=== PATIENT | female | born 1960 | race Caucasian/White ===

== ENCOUNTER → 2020-08-10 08:09 | Outpatient (BNVA) | payer OTHER, SELFPAY | PROVIDERS: PCP Physician Assistant; Visit Provider Family Medicine Adult Medicine | DX: M54.16 Radiculopathy, lumbar region (principal); Z79.891 Long term (current) use of opiate analgesic | CPT/HCPCS: 99214 ==

== ENCOUNTER → 2020-09-05 08:01 | Outpatient (BNVA) | payer OTHER, SELFPAY | PROVIDERS: PCP Physician Assistant; Visit Provider Family Medicine Adult Medicine | DX: M54.16 Radiculopathy, lumbar region (principal); Z79.891 Long term (current) use of opiate analgesic | CPT/HCPCS: 99212 ==

== ENCOUNTER → 2020-10-03 10:08 | Outpatient (BNVA) | payer OTHER, SELFPAY | PROVIDERS: PCP Physician Assistant; Visit Provider Family Medicine Adult Medicine | DX: M54.16 Radiculopathy, lumbar region (principal); Z93.3 Colostomy status | CPT/HCPCS: 99212 ==

== ENCOUNTER → 2020-11-09 10:56 | Outpatient (BNVA) | payer OTHER, SELFPAY | PROVIDERS: PCP Physician Assistant; Visit Provider Hospitalist | DX: J43.2 Centrilobular emphysema (principal); J96.11 Chronic respiratory failure with hypoxia; R91.8 Other nonspecific abnormal finding of lung field | CPT/HCPCS: 99212 ==

== ENCOUNTER → 2020-12-12 09:51 | Outpatient (BNVA) | payer OTHER, SELFPAY | PROVIDERS: PCP Physician Assistant; Referring Provider Physician Assistant; Visit Provider Family Medicine Adult Medicine | DX: M54.16 Radiculopathy, lumbar region (principal); Z93.3 Colostomy status | CPT/HCPCS: 99212 ==

== ENCOUNTER → 2021-01-09 12:25 | Outpatient (BNVA) | payer OTHER, SELFPAY | PROVIDERS: PCP Physician Assistant; Visit Provider Family Medicine Adult Medicine | DX: M54.16 Radiculopathy, lumbar region (principal); Z93.3 Colostomy status; Z79.899 Other long term (current) drug therapy | CPT/HCPCS: 99212 ==

== ENCOUNTER → 2021-02-08 14:40 | Outpatient (BNVA) | payer OTHER, SELFPAY | PROVIDERS: PCP Physician Assistant; Visit Provider Family Medicine Adult Medicine | DX: M54.16 Radiculopathy, lumbar region (principal); Z93.3 Colostomy status | CPT/HCPCS: Q3014 ==

== ENCOUNTER 2021-03-20 10:48 | Outpatient (REF) | payer OTHER, SELFPAY ==
[2021-03-20 13:43] LABS: Hematocrit 37.6 % (37-47); Mean Corpuscular HGB Conc 31.9 g/dl (31.0-35.0); Mean Corpuscular Hemoglobin 27.1 pg (27.0-33.0); Mean Corpuscular Volume 84.9 fL (80-98); Mean Platelet Volume 8.8 fL (9.4-12.3); Platelet Count 355 X10*3/uL (160-400); Red Blood Count 4.43 X10*6/uL (4.20-5.50); Red Cell Distribution Width 14.1 % (11.0-16.0); White Blood Count 9.3 X10*3/uL (4.8-10.8)
[2021-03-20 13:49] LABS: Glucose Urine UA NEG (NEG); Leukocyte Esterase Urine NEG (NEG); Nitrite Urine NEG (NEG); PH 6.5 (5.0-8.0); Specific Gravity - Urine <= 1.005 (1.005-1.025); Urine Blood TRACE (NEG); Urine Ketones NEG (NEG); Urine Protein NEG (NEG-TRACE)
[2021-03-20 13:52] LABS: Appearance Urine CLEAR; Color Urine YELLOW
[2021-03-20 13:57] LABS: Alanine Aminotransferase 19 U/L (0-31); Albumin Level 4.4 g/dL (3.5-5.0); Alkaline Phosphatase 157 U/L (39-117); Anion Gap 16 (12-20); Aspartate Amino Transferase 10 U/L (5-31); Bilirubin Total 0.4 mg/dL (0.0-1.0); Blood Urea Nitrogen 7 mg/dL (9-16); Calcium 9.5 mg/dL (8.4-10.2); Carbon Dioxide 27 mmol/L (22-29); Chloride 95 mmol/L (96-108); Cholesterol 164 mg/dL; Estimated Glomerular Filt Rate > 60; Glucose Fasting 97 mg/dL (60-99); HDL Cholesterol 46 mg/dL; LDL Cholesterol Calculated 69 mg/dl; Potassium 3.6 mmol/L (3.3-5.1); Sodium 134 mmol/L (135-145); Triglycerides 249 mg/dL
[2021-03-20 14:05] LABS: RBC Urine 0-2 /HPF (0); Squamous Epithelial Cell Urine 1+ /LPF; WBC Urine 0 /HPF (0-4)
[2021-03-20 14:22] LABS: Creatinine Urine 31.16 mg/dL; Microalbumin Urine < 5.0 mg/L
[2021-03-20 14:30] LABS: Folate > 20.0 ng/mL (> or = 4.0); Vitamin B12 323 pg/mL (200-900)
[2021-03-20 14:39] LABS: TSH reflex Free T4 0.38 uIU/mL (0.32-4.0); Vitamin D 25-OH Total 36.4 ng/mL (>30)
== END 2021-03-20 10:49 | disposition home or self-care (01) ==
LOC: HO.LAB 10:48
PROVIDERS: PCP Physician Assistant; Visit Provider Family Medicine Adult Medicine
DX: M54.16 Radiculopathy, lumbar region (principal); R19.8 Other specified symptoms and signs involving the digestive system and abdomen; I10 Essential (primary) hypertension; E03.9 Hypothyroidism, unspecified; Z93.2 Ileostomy status; Z93.3 Colostomy status
CPT/HCPCS: 36415; 80048; 80053; 80061; 81001; 82043; 82306; 82607; 82746; 84443; 85027; 99212

== ENCOUNTER → 2021-04-17 09:18 | Outpatient (BNVA) | payer OTHER, SELFPAY | PROVIDERS: PCP Physician Assistant; Visit Provider Family Medicine Adult Medicine | DX: M54.16 Radiculopathy, lumbar region (principal); Z93.3 Colostomy status | CPT/HCPCS: 99212 ==

== ENCOUNTER → 2021-04-26 13:45 | Outpatient (BNVA) | payer OTHER, SELFPAY | PROVIDERS: PCP Physician Assistant; Visit Provider Family Medicine Adult Medicine | DX: M54.16 Radiculopathy, lumbar region (principal); Z93.3 Colostomy status | CPT/HCPCS: 99212 ==

== ENCOUNTER 2021-05-15 13:24 | Outpatient (REF) | payer OTHER, SELFPAY ==
--- NOTE | ~2021-05-15 | CT_ITS ---
EXAMINATION: CT CHEST WITHOUT CONTRAST CLINICAL INFORMATION: Pulmonary nodules COMPARISON: Previous chest x-rays most recent October [address] most recent January 2018 TECHNIQUE: Multidetector volumetric CT imaging of the chest was done. Axial MIP volume rendering provided. Sagittal and coronal reformatted images were obtained. This CT examination was performed using dose optimization techniques as appropriate, variously including the following: *Automated exposure control *Adjustment of mA and/or kV according to patient size (this includes techniques or standardized protocols for targeted exams where dose is matched to indication/reason for exam; i.e. 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 There is a 3 x 5 mm calcified superior segment left lower lobe nodule that is stable There is a 2 mm left upper lobe nodule axial image 229 series 5 that is stable. There is a 3 mm peripheral or subpleural lingular nodule axial image 275 that is stable. There is a 4 mm peripheral or subpleural left lower lobe nodule axial image 369 series 4 that is stable. There is a 3 x 5 mm left lower lobe nodule axial image 385 series 4 that is stable. MEDIASTINUM: There is a trace pericardial effusion that is stable. The heart does not appear enlarged. There is very mild coronary artery calcification. The thoracic aorta is normal in caliber. There is shotty mediastinal lymphadenopathy that is stable. There is a small calcification in the right lobe of the thyroid gland. PLEURA: There are scattered areas of mild pleural thickening, largest along the right major fissure, that are stable. There is no pleural effusion. AXILLA: There is shotty bilateral axillary lymphadenopathy. No enlarged axillary lymph nodes or chest wall mass is seen. UPPER ABDOMEN: The stomach is distended and filled with food. This is similar to previous exam. The gallbladder has been removed. OSSEOUS STRUCTURES: There are mild degenerative changes of the spine. CT/CT chest wo con IMPRESSION: Emphysema. Stable pulmonary nodules. The stomach again appears distended.
== END 2021-05-15 13:25 | disposition home or self-care (01) ==
LOC: HO.CT 13:24
PROVIDERS: PCP Physician Assistant; Visit Provider Hospitalist
DX: R91.8 Other nonspecific abnormal finding of lung field (principal)
CPT/HCPCS: 71250

== ENCOUNTER → 2021-06-18 13:05 | Outpatient (BNVA) | payer OTHER, SELFPAY | PROVIDERS: PCP Physician Assistant; Visit Provider Hospitalist | DX: J43.2 Centrilobular emphysema (principal); J96.11 Chronic respiratory failure with hypoxia; R91.8 Other nonspecific abnormal finding of lung field | CPT/HCPCS: 99212 ==

== ENCOUNTER 2021-06-28 11:23 | Outpatient (REF) | payer OTHER, SELFPAY ==
[2021-06-28 14:11] LABS: Glucose Urine UA NEG (NEG); Leukocyte Esterase Urine 3+ (NEG); Nitrite Urine POS (NEG); UACC Culture Trigger YES; Urine Blood 1+ (NEG); Urine Ketones NEG (NEG); Urine Protein NEG (NEG-TRACE)
[2021-06-28 14:13] LABS: Appearance Urine CLOUDY; Color Urine YELLOW; Specific Gravity - Urine <= 1.005 (1.005-1.025)
[2021-06-28 15:14] LABS: Squamous Epithelial Cell Urine 1+ /LPF; WBC Urine TNTC /HPF (0-4)
[2021-06-28 15:15] LABS: Bacteria Urine 3+ /LPF
== END 2021-06-28 11:24 | disposition home or self-care (01) ==
LOC: HO.HMGCLDS 11:23
PROVIDERS: PCP Physician Assistant; Visit Provider Physician Assistant
DX: R30.0 Dysuria (principal); R19.8 Other specified symptoms and signs involving the digestive system and abdomen; Z93.2 Ileostomy status
CPT/HCPCS: 81001; 81003; 87086; 87088; 87186

== ENCOUNTER → 2022-01-02 14:39 | Outpatient (BNVA) | payer OTHER, SELFPAY | PROVIDERS: PCP Physician Assistant; Referring Provider Physician Assistant; Visit Provider Surgery | DX: Z43.2 Encounter for attention to ileostomy (principal) | CPT/HCPCS: 99202 ==

== ENCOUNTER → 2022-01-14 10:01 | Outpatient (BNVA) | payer OTHER, SELFPAY | PROVIDERS: PCP Physician Assistant; Visit Provider Hospitalist | DX: J43.2 Centrilobular emphysema (principal); J96.11 Chronic respiratory failure with hypoxia; R91.8 Other nonspecific abnormal finding of lung field | CPT/HCPCS: 99212 ==

== ENCOUNTER → 2022-02-13 10:33 | Outpatient (REF) | payer OTHER, SELFPAY ==
--- NOTE | 2022-02-13 11:03 | ECG_ITS ---
Test Reason : F33.2 Blood Pressure : / mmHG Vent. Rate : 072 BPM Atrial Rate : 072 BPM P-R Int : 170 ms QRS Dur : 092 ms QT Int : 404 ms P-R-T Axes : 073 047 063 degrees QTc Int : 442 ms Normal sinus rhythm Normal ECG When compared with ECG of 25-SEP-2017 09:04, No significant change was found Referred By: Jigar Patel Electronically Signed By:SAMANTHA SHAW MD
[2022-02-13 11:44] LABS: Hematocrit 34.6 % (37.0-47.0); Hemoglobin 10.1 g/dl (12.0-16.0); Mean Corpuscular HGB Conc 29.2 g/dl (31.0-35.0); Mean Corpuscular Volume 72.1 fL (80.0-98.0); Platelet Count 263 X10*3/uL (160-400); Red Cell Distribution Width 18.1 % (11.0-16.0); White Blood Count 7.5 X10*3/uL (4.8-10.8)
[2022-02-13 11:52] LABS: Estimated Average Glucose 108 mg/dL; Hemoglobin A1c % 5.4 %
[2022-02-13 12:31] LABS: Alanine Aminotransferase 21 U/L (0-31); Albumin Level 4.3 g/dL (3.5-5.0); Alkaline Phosphatase 142 U/L (39-117); Anion Gap 11 (12-20); Aspartate Amino Transferase 24 U/L (5-31); Bilirubin Total 0.2 mg/dL (0.0-1.0); Blood Urea Nitrogen 9 mg/dL (9-16); Calcium 9.3 mg/dL (8.4-10.2); Carbon Dioxide 26 mmol/L (22-29); Chloride 100 mmol/L (96-108); Cholesterol 162 mg/dL; Estimated Glomerular Filt Rate > 60; Glucose Fasting 94 mg/dL (60-99); HDL Cholesterol 48 mg/dL; Iron 19 mcg/dL (30-160); LDL Cholesterol Calculated 87 mg/dl; Percent Iron Saturation 4 % (15-50); Potassium 4.4 mmol/L (3.3-5.1); Sodium 133 mmol/L (135-145); Total Iron Binding Capacity 531 mcg/dL (228-428); Total Protein 6.8 g/dL (6.5-8.0); Triglycerides 135 mg/dL; Unsaturated Iron Binding 512 ug/dL
[2022-02-13 12:54] LABS: TSH reflex Free T4 2.18 uIU/mL (0.32-4.0); Vitamin D 25-OH Total 33.4 ng/mL (>30)
[2022-02-13 13:05] LABS: Folate > 20.0 ng/mL (> or = 4.0); Vitamin B12 332 pg/mL (200-900)
== END ==
LOC: HO.CARD 10:33
PROVIDERS: Absent Provider Physician Assistant; PCP Physician Assistant; Visit Provider Surgery
DX: Z13.1 Encounter for screening for diabetes mellitus (principal); Z13.220 Encounter for screening for lipoid disorders; I10 Essential (primary) hypertension; F33.2 Major depressive disorder, recurrent severe without psychotic features; D50.9 Iron deficiency anemia, unspecified; R19.8 Other specified symptoms and signs involving the digestive system and abdomen; Z93.2 Ileostomy status
CPT/HCPCS: 36415; 80053; 80061; 82306; 82607; 82746; 83036; 83540; 84443; 85027; 93005; 99211

== ENCOUNTER 2022-04-23 11:37 | Outpatient (REF) | payer OTHER, SELFPAY ==
[2022-04-23 12:05] LABS: Binax Now Covid-19 Ag Negative (Negative)
[2022-04-23 12:06] LABS: Binax Internal Control QC Valid; Binax Performed by: HO.BONILM
== END 2022-04-23 11:38 | disposition home or self-care (01) ==
LOC: HO.HMGCLDS 11:37
PROVIDERS: PCP Physician Assistant; Visit Provider Nurse Practitioner Family
DX: Z20.822 Contact with and (suspected) exposure to COVID-19 (principal)
CPT/HCPCS: 87811

== ENCOUNTER 2022-05-06 13:08 | Outpatient (REF) | payer OTHER, SELFPAY ==
[2022-05-06 16:43] LABS: Hematocrit 38.4 % (37.0-47.0); Hemoglobin 11.9 g/dl (12.0-16.0); Mean Corpuscular Hemoglobin 25.2 pg (27.0-33.0); Mean Corpuscular Volume 81.2 fL (80.0-98.0); Mean Platelet Volume 10.3 fL (9.4-12.3); Platelet Count 224 X10*3/uL (160-400); Red Blood Count 4.73 X10*6/uL (4.20-5.50); Red Cell Distribution Width 17.2 % (11.0-16.0); White Blood Count 7.9 X10*3/uL (4.8-10.8)
[2022-05-06 16:55] LABS: Anion Gap 13 (12-20); Blood Urea Nitrogen 3 mg/dL (9-16); Calcium 9.3 mg/dL (8.4-10.2); Carbon Dioxide 28 mmol/L (22-29); Chloride 94 mmol/L (96-108); Estimated Glomerular Filt Rate > 60; Glucose Random 111 mg/dL (60-115); Iron 162 mcg/dL (30-160); Magnesium 1.6 mg/dL (1.6-2.6); Percent Iron Saturation 35 % (15-50); Potassium 3.4 mmol/L (3.3-5.1); Sodium 132 mmol/L (135-145); Total Iron Binding Capacity 461 mcg/dL (228-428); Unsaturated Iron Binding 299 ug/dL
[2022-05-06 18:25] LABS: Creatinine Urine 13.63 mg/dL
== END 2022-05-06 13:09 | disposition home or self-care (01) ==
LOC: HO.HMGCLDS 13:08
PROVIDERS: Visit Provider Physician Assistant
DX: I10 Essential (primary) hypertension (principal); D50.9 Iron deficiency anemia, unspecified; Z98.890 Other specified postprocedural states
CPT/HCPCS: 36415; 80048; 82043; 83540; 83735; 85027

== ENCOUNTER 2022-06-24 14:09 | Outpatient (REF) | payer OTHER, SELFPAY ==
--- NOTE | 2022-06-24 17:11 | PFT_ITS ---
INDICATION: COPD. This [place] [address]. This is not a formal pulmonary function study. SPIROMETRY: The FEV1 to FVC 80% with an FEV1 of 2.81 L which is 112% predicted, an FVC of 3.51 L, which is 110% predicted. No significant response to bronchodilators noted. COMPARISON: None. INTERPRETATION: No obstructive ventilatory defect. Normal lung. Normal FEV1 and FVC without any evidence of any obstructive lung disease. If asthma is in the differential, methacholine challenge may be helpful in assessing for hyper-reactive airways in the diagnosis of asthma. Edi Montoya MD MR/MODL / [id number]
== END 2022-06-24 14:10 | disposition home or self-care (01) ==
LOC: HO.RESP 14:09
PROVIDERS: Visit Provider Hospitalist
DX: J43.2 Centrilobular emphysema (principal)
CPT/HCPCS: 94060

== ENCOUNTER → 2022-07-16 14:01 | Outpatient (BNVA) | payer OTHER, SELFPAY | PROVIDERS: PCP Physician Assistant; Visit Provider Surgery | DX: R19.7 Diarrhea, unspecified (principal); K43.2 Incisional hernia without obstruction or gangrene; K46.9 Unspecified abdominal hernia without obstruction or gangrene; F43.12 Post-traumatic stress disorder, chronic; F33.2 Major depressive disorder, recurrent severe without psychotic features; L71.9 Rosacea, unspecified; F17.200 Nicotine dependence, unspecified, uncomplicated; I10 Essential (primary) hypertension; J43.2 Centrilobular emphysema; M54.16 Radiculopathy, lumbar region | CPT/HCPCS: 99202 ==

== ENCOUNTER → 2022-08-06 14:58 | Outpatient (BNVA) | payer OTHER, SELFPAY | PROVIDERS: PCP Physician Assistant; Visit Provider Hospitalist | DX: Z01.811 Encounter for preprocedural respiratory examination (principal); J43.2 Centrilobular emphysema; J96.11 Chronic respiratory failure with hypoxia; R91.8 Other nonspecific abnormal finding of lung field | CPT/HCPCS: 99212 ==

== ENCOUNTER 2023-01-18 10:00 | Outpatient (REF) | payer OTHER, SELFPAY ==
[2023-01-18 11:57] LABS: Anion Gap 13 (12-20); Blood Urea Nitrogen 4 mg/dL (9-16); Calcium 9.6 mg/dL (8.4-10.2); Carbon Dioxide 28 mmol/L (22-29); Chloride 99 mmol/L (96-108); Estimated Glomerular Filt Rate > 60; Glucose Random 105 mg/dL (60-115); Potassium 3.2 mmol/L (3.3-5.1); Sodium 137 mmol/L (135-145)
[2023-01-18 12:06] LABS: Influenza A PCR NEGATIVE (Negative); Influenza B PCR NEGATIVE (Negative); Resp Syncy Virus RNA Qual PCR NEGATIVE (Negative); SARS COV2 PCR INHOUSE NEGATIVE (Negative)
== END 2023-01-18 10:01 | disposition home or self-care (01) ==
LOC: HO.HMGCLDS 10:00
PROVIDERS: Nurse Practitioner Family; Physician Assistant Medical; PCP Physician Assistant; Visit Provider Nurse Practitioner Family
DX: Z20.822 Contact with and (suspected) exposure to COVID-19 (principal); R60.0 Localized edema; R05.9 Cough, unspecified
CPT/HCPCS: 0241U; 36415; 80048

== ENCOUNTER 2023-04-26 09:14 | Outpatient (REF) | payer OTHER, SELFPAY | END 2023-04-26 09:15 | disposition home or self-care (01) | LOC: HO.HMGCX 09:14 | PROVIDERS: PCP Physician Assistant; Visit Provider Internal Medicine | DX: M19.041 Primary osteoarthritis, right hand (principal) | CPT/HCPCS: 73130 ==

== ENCOUNTER 2023-05-09 09:14 | Outpatient (AMB) | payer OTHER, SELFPAY ==
[2023-05-09 09:16] VITALS: BP 124/82; PULSE 101; O2SAT 97; BMI 35.1
--- NOTE | 2023-05-09 09:16 | MHC.PC.OV ---
Vital Signs 05/09/23 09:16 Height 5 ft 3 in Weight 198 lb BMI 35.1 BP 124/82 Blood Pressure Location Lt brachial Position Sitting Pulse 101 H Pulse Source Pulse Oximeter Temp Source Skin Pulse Oximetry (%) 97 Oxygen Delivery Method Room Air Intake Visit Reasons: Pain in Right Hand Intake Note: pt states bilateral hand pain with tingling [id number] Hunting Guide Required: No Allergies baclofen Allergy (Severe, Verified 05/09/23 09:45) GI upset dexamethasone Allergy (Severe, Verified 05/09/23 09:45) Vomiting doxycycline Allergy (Severe, Verified 05/09/23 09:45) Vomiting naproxen [Aleve] Allergy (Severe, Verified 05/09/23 09:45) Vomiting penicillin V Allergy (Severe, Verified 05/09/23 09:45) vomitting Sulfa (Sulfonamide Antibiotics) Allergy (Severe, Verified 05/09/23 09:45) Vomiting ibuprofen [Advil] Allergy (Intermediate, Verified 05/09/23 09:45) Vomiting codeine [Codeine] Allergy (Mild, Verified 05/09/23 09:45) VOMITING aspirin [ASPIRIN] Adverse Reaction (Severe, Verified 05/09/23 09:45) VOMITING Medication List - Last Reconciled 05/09/23 by ANABELL Villanueva acetaminophen ER (Tylenol Arthritis Pain) 650 mg PO Q12H 30 days albuterol sulfate 90 mcg/actuation 2 inhalations inhalation Q6H PRN 30 days cholecalciferol (vitamin D3) 50 mcg PO DAILY 90 days diaper,brief,adult,disposable As directed diazepam mg PO BID PRN disposable gloves (Biobrane Gloves Large) As directed duloxetine (Cymbalta) 60 mg PO DAILY esomeprazole magnesium (Nexium) 40 mg PO BID furosemide (Lasix) 10 mg (1/2 x 20 mg) PO DAILY 20 days hydroxyzine HCl 25 mg PO BID 30 days levothyroxine 50 mcg PO DAILY ncpegbjka-oviitu-mrvdfs-petrol 5-0.25-14.4-15 % (Preparation H Rapid Relief-Lidocaine) 1 appl topical DAILY 15 days lisinopril 30 mg PO DAILY meloxicam 15 mg PO DAILY menthol-zinc oxide 0.44-20.6 % (Calmoseptine) 1 appl topical QID 30 days menthol-zinc oxide 0.44-20.6 % (Calmoseptine) 1 appl topical QID PRN 30 days miscellaneous medical supply 3 ea miscellaneous ONCE miscellaneous medical supply 1 ea miscellaneous DAILY 99 days miscellaneous medical supply 1 ea miscellaneous .1 pair multivitamin 1 tab PO DAILY 90 days ondansetron HCl 8 mg PO QID 30 days oxycodone 5 mg PO Q6H PRN 7 days [right hand brace As directed] simethicone (Gas Relief (simethicone)) 125 mg PO TID PRN 30 days thiamine HCl (vitamin B1) 100 mg PO DAILY 90 days Trelegy Ellipta 100-62.5-25 mcg (bvjwwuyxbny-reszqhyhd-nxdwvzvs) 1 ea PO DAILY NS varenicline 1 mg PO BID 28 days Tobacco use date assessed: 05/09/23 Dental Screening Dental Screen Date: 05/09/23 HPI Pain in Right Hand HPI Details Patient is a 63-year-old female who presents today with right hand pain for the past 1 month. Patient of CLIFF Patel. medical history significant for COPD, hypertension, anxiety, history of reversal of ileostomy, rectal pain, rectal irritation. Patient reports that she was seen in the emergency not too long ago and she was placed Medrol Terry beginning of 04/2023 for carpal tunnel syndrome in both of her hands, she reports no improvement in her pain. She reports right hand numbness and tingling as well as burning sensation. She is right handed, she has been using her left hand and she reports that she is starting with left hand the same symptoms. Patient has been wearing a right wrist brace with no much improvement. She did have recently x-ray of right hand which showed progressive osteoarthritis. In addition, patient reports rectal skin irritation, she reports that insurance will not cover her creams that for sent by PCP. She has been using preparation H and calmoceptin cream with no much improvement. She denies shortness of breath or chest pain. 04/26/2023 XR/XR hand RT min 3V IMPRESSION: Progression in findings of osteoarthritis in the right hand and wrist as described. ? No acute fracture or dislocation. [facility] Medical History Abdominal hernia Annual physical exam Chronic post-traumatic stress disorder (PTSD) Chronic respiratory failure COPD (chronic obstructive pulmonary disease) Flat feet, bilateral Hypokalemia Ileostomy in place Osteopenia Pulmonary nodules Right lumbar radiculopathy Screening for breast cancer Surgical History Colostomy status History of appendectomy History of bladder surgery History of cholecystectomy History of colectomy History of colonoscopy History of eye surgery History of tonsillectomy History of total abdominal hysterectomy and bilateral salpingo-oophorectomy History of umbilical hernia repair Family History Father Renal cell cancer Prostate cancer Leukemia Diabetes Hypertension Mother Hypertension Paternal Grandmother Colon cancer Maternal Grandfather Myocardial infarction Sister Lupus Daughter In good health Other Mental health disorder Social History Housing: Apartment Alcohol intake: never Patient Tobacco Use Status: Former Tobacco user (about a month ago) Quit Date: 01/2023 Tobacco use type: Cigarette Cigarettes Per Day: 4 Years Smoked: 42 years Packs per year/per ci.00 e-Cigarette/Vaping Use: Never Used service: No Current occupational status: disabled Cognitive needs: Yes (cane/walker) Hearing needs: No Vision needs: Yes (glasses) Questionnaire Thrive Questionnaire Date Thrive assessed: 04/10/23 AUDIT C Alcohol Use Questionnaire (AUDIT-C) 1. How often do you have a drink containing alcohol?: Never Total Score: 0 Score Reviewed/Action Taken: No EMILY-7 AMB Questionnaire EMILY-7 Date EMILY - 7 assessed: 04/10/23 Source: Developed by Drs. Enoch Vallecillo, Anum Jung, Nathan Tiwari and colleagues, with an educational clifton from [employer]. Review of Systems Const Denies body aches, Denies chills, Denies fever(s) and Denies headache(s) Eyes Denies change in vision ENT Denies dizziness, Denies otalgia, Denies headache(s), Denies nasal discharge, Denies sinus pain and Denies sore throat Card Denies chest pain, Denies edema, Denies lightheadedness and Denies dyspnea Resp Denies cough and Denies dyspnea GI Denies abdominal pain, Denies constipation, Reports diarrhea, Denies nausea and Denies vomiting Denies dysuria Musc Reports as per HPI, Denies myalgias, Reports arthralgias, Denies joint swelling, Reports numbness and Reports tingling Skin/Breast Reports as per HPI and Reports rash Neuro Denies dizziness, Denies headache(s), Reports numbness and Reports tingling Physical exam (Primary Care) Vital Signs: Last Vital Signs Pulse 101 H 05/09/23 09:16 BP 124/82 05/09/23 09:16 Pulse Ox 97 05/09/23 09:16 Oxygen Delivery Method Room Air 05/09/23 09:16 BMI result Body Mass Index 35.1 Tobacco/Smoking Status: Tobacco use Status Tobacco use date assessed 05/09/23 05/09/23 09:17 Patient Tobacco Use Status Former Tobacco user (about a 05/09/23 09:17 month ago) Tobacco use type Cigarette 05/09/23 09:17 e-Cigarette/Vaping Use Never Used 05/09/23 09:17 Thrive Assessment: Date of Thrive Assessment Date Thrive assessed 04/10/23 05/09/23 09:17 Const General: cooperative and no acute distress Orientation/consciousness: patient oriented x3 HENMT Head: Yes normocephalic and Yes atraumatic Mouth: moist mucous membranes Throat: Yes posterior oropharynx normal Eyes General: appearance normal, both eyes and all related structures Neck Neck: Yes normal visual inspection and Yes full ROM Resp Effort & Inspection: normal respiratory effort and able to speak in complete sentences Auscultation: clear to auscultation bilaterally, no crackles, no rales, no rhonchi and no wheezes Cardio Rate: regular rate Rhythm: regular rhythm Heart sounds: S1 normal heart sound present and S2 normal heart sound present Peripheral pulses: radial pulses present bilateral GI Auscultation: normal bowel sounds Skin Other: Bilateral buttock proximal to rectal area erythematous with macerated skin, no discharge Neuro Other: Right and left hands positive Tinel's and Phalen's - R>L General: patient oriented x3 Gait exam (Neuro): Normal gait present Extrem General: Yes full ROM and No edema Assessment and Plan Assessment & Plan (1) Carpal tunnel syndrome: Code(s): G56.00 - Carpal tunnel syndrome, unspecified upper limb Plan: Will refer to Orthopedics for an evaluation and treatment. Patient would like to hold off on OT referral. Patient is to continue wearing right wrist brace. Will treat with prednisone 20 mg daily for 5 days. Signs and symptoms reviewed when to notify provider go to the emergency department. (2) Rectal irritation: Code(s): K62.89 - Other specified diseases of anus and rectum Plan: Will provide patient with nystatin powder prn. Keep area dry and clean. Also refills sent on creams that were provided by PCP. Orders: Referrals Orthopedics Referral G56.00 - Carpal tunnel syndrome, unspecified upper limb Medications: New prednisone 20 mg PO DAILY 5 days 5 tabs 0RF G56.00 - Carpal tunnel syndrome, unspecified upper limb nystatin 1 appl topical QID PRN 60 grams 0RF rash K62.89 - Other specified diseases of anus and rectum Refilled oarnesces-tbxpfq-txituk-petrol 5-0.25-14.4-15 % (Preparation H Rapid Relief-Lidocaine) 1 appl topical DAILY 15 days 28 grams 3RF R20.8 - Other disturbances of skin sensation menthol-zinc oxide 0.44-20.6 % (Calmoseptine) 1 appl topical QID 30 days PRN 226 grams 3RF skin irritation K62.89 - Other specified diseases of anus and rectum, Z90.49 - Acquired absence of other specified parts of digestive tract Coding Level of Care Code Est Pt Level 3 (33754) Diagnoses Carpal tunnel syndrome G56.00 Rectal irritation K62.89
== END 2023-05-09 10:07 | disposition home or self-care (01) ==
PROVIDERS: PCP Physician Assistant; Visit Provider Nurse Practitioner Family
DX: G56.00 Carpal tunnel syndrome, unspecified upper limb (principal); K62.89 Other specified diseases of anus and rectum
CPT/HCPCS: 99213

== ENCOUNTER 2023-05-15 10:29 | Outpatient (AMB) | payer OTHER, SELFPAY ==
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
== END 2023-05-15 10:44 | disposition home or self-care (01) ==
LOC: HO.HPS 10:29
PROVIDERS: PCP Physician Assistant; Visit Provider Hospitalist
DX: J43.2 Centrilobular emphysema (principal); J96.11 Chronic respiratory failure with hypoxia; R91.1 Solitary pulmonary nodule; X00.1XXA Exposure to smoke in uncontrolled fire in building or structure, initial encounter
CPT/HCPCS: 99442

== ENCOUNTER → 2023-05-15 10:29 | Outpatient (BNVA) | payer OTHER, SELFPAY | PROVIDERS: PCP Physician Assistant; Visit Provider Hospitalist ==

== ENCOUNTER 2023-06-11 08:41 | Outpatient (AMB) | payer OTHER, SELFPAY ==
[2023-06-11 09:25] VITALS: BP 130/72; PULSE 86; O2SAT 96; BMI 34.8
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
== END 2023-06-11 10:20 | disposition home or self-care (01) ==
PROVIDERS: PCP Physician Assistant; Visit Provider Physician Assistant
DX: J43.2 Centrilobular emphysema (principal); J01.11 Acute recurrent frontal sinusitis; K46.9 Unspecified abdominal hernia without obstruction or gangrene
CPT/HCPCS: 99214

== ENCOUNTER 2023-06-11 10:40 | Outpatient (AMB) | payer OTHER, SELFPAY ==
[2023-06-11 10:52] VITALS: BMI 34.7
--- NOTE | 2023-06-11 10:52 | A.OFFVIS_ITS ---
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 States symptoms have increased in the last 1.5 month. States its worse in the mornings and at night time. Intermittent numbness through out the day. Currently states she had weakness in her hands and has dropped items due to numbness as well as swelliing. Hx of O.A. Patient had tried cortisone injection in her shoulder but never in her hands. Also states she is having pain and numbness in her left hand due to over compensating for her right hand. EMG done at [facility] a few years ago. Allergies baclofen Allergy (Severe, Verified 06/11/23 10:53) GI upset dexamethasone Allergy (Severe, Verified 06/11/23 10:53) Vomiting doxycycline Allergy (Severe, Verified 06/11/23 10:53) Vomiting naproxen [Aleve] Allergy (Severe, Verified 06/11/23 10:53) Vomiting penicillin V Allergy (Severe, Verified 06/11/23 10:53) vomitting Sulfa (Sulfonamide Antibiotics) Allergy (Severe, Verified 06/11/23 10:53) Vomiting ibuprofen [Advil] Allergy (Intermediate, Verified 06/11/23 10:53) Vomiting codeine [Codeine] Allergy (Mild, Verified 06/11/23 10:53) VOMITING aspirin [ASPIRIN] Adverse Reaction (Severe, Verified 06/11/23 10:53) VOMITING Medication List - Last Reconciled 06/11/23 by Brie Flores MD acetaminophen ER (Tylenol Arthritis Pain) 650 mg PO Q12H 30 days albuterol sulfate 90 mcg/actuation 2 inhalations inhalation Q6H PRN 30 days cephalexin 500 mg PO Q8H 7 days cholecalciferol (vitamin D3) 50 mcg PO DAILY 90 days diaper,brief,adult,disposable As directed diazepam mg PO BID PRN diphenoxylate-atropine 2.5-0.025 mg 0 tabs PO disposable gloves (Biobrane Gloves Large) As directed duloxetine (Cymbalta) 60 mg PO DAILY duloxetine 60 mg PO DAILY esomeprazole magnesium (Nexium) 40 mg PO BID qdfftxnqhtl-zrskgxdzl-iymtvesz 100-62.5-25 mcg (Trelegy Ellipta) 1 ea PO DAILY furosemide (Lasix) 10 mg (1/2 x 20 mg) PO DAILY 20 days hydroxyzine HCl 25 mg PO BID 30 days ipratropium bromide 2 sprays intranasal BID 30 days levothyroxine 50 mcg PO DAILY lidocaine 5% 1 appl topical DAILY 30 days uqjbfmkyd-bmfrxr-zhxlne-petrol 5-0.25-14.4-15 % (Preparation H Rapid Relief- Lidocaine) 1 appl topical DAILY 15 days lisinopril 30 mg PO DAILY loratadine 10 mg PO DAILY 30 days menthol-zinc oxide 0.44-20.6 % (Calmoseptine) 1 appl topical QID 30 days menthol-zinc oxide 0.44-20.6 % (Calmoseptine) 1 appl topical QID PRN 30 days miscellaneous medical supply 3 ea miscellaneous ONCE miscellaneous medical supply 1 ea miscellaneous DAILY 99 days miscellaneous medical supply 1 ea miscellaneous DAILY 99 days miscellaneous medical supply 1 ea miscellaneous .1 pair multivitamin 1 tab PO DAILY 90 days nystatin 1 appl topical QID PRN ondansetron HCl 8 mg PO QID 30 days oxycodone 10 mg PO TID PRN 10 days [right hand brace As directed] simethicone (Gas Relief (simethicone)) 125 mg PO TID PRN 30 days thiamine HCl (vitamin B1) 100 mg PO DAILY 90 days varenicline 1 mg PO BID 28 days walker (Ultra-Light Rollator misc) As directed HPI HPI Comments History of Present Illness Details Referred by PCP for bilateral hand numbness/pain. Was given prednisone for 5 days. X-ray right hand showed 1st [facility] joint arthritis. 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 Worst past 1 1/2 months. Pain on palm. Numbness on all fingers. Drops things. EMG few years ago, was normal. Left starting to have pain due to compensation. Treatment done so far: NSAIDs - can't take due to GI history therapy - none yet, wears wrist splint injection - none on wrist or CTS surgery - no history of CTS [facility] Medical History Abdominal hernia Annual physical exam Chronic post-traumatic stress disorder (PTSD) Chronic respiratory failure COPD (chronic obstructive pulmonary disease) Flat feet, bilateral Hypokalemia Ileostomy in place Osteopenia Pulmonary nodules Right lumbar radiculopathy Screening for breast cancer Surgical History Colostomy status History of appendectomy History of bladder surgery History of cholecystectomy History of colectomy History of colonoscopy History of eye surgery History of tonsillectomy History of total abdominal hysterectomy and bilateral salpingo-oophorectomy History of umbilical hernia repair Family History Father Renal cell cancer Prostate cancer Leukemia Diabetes Hypertension Mother Hypertension Paternal Grandmother Colon cancer Maternal Grandfather Myocardial infarction Sister Lupus Daughter In good health Other Mental health disorder Social History Housing: Apartment Alcohol intake: never Patient Tobacco Use Status: Former Tobacco user (about a month ago) Quit Date: 01/2023 Tobacco use type: Cigarette Cigarettes Per Day: 4 Years Smoked: 42 years e-Cigarette/Vaping Use: Never Used service: No Current occupational status: disabled Cognitive needs: Yes (cane/walker) Hearing needs: No Vision needs: Yes (glasses) Review of Systems Const All systems reviewed & are unremarkable except as noted in HPI and below Physical Exam Vital Signs: BMI result Body Mass Index 34.7 Constitutional: Patient appears to be in no acute distress, well nourished and well developed. MSK: Inspection reveals appropriate head and neck positioning. [No] pain with palpation over the neck musculature. Cervical ROM was [full]. Spurling's sign [negative]. [Bilateral] shoulder ROM [WNL]. [No] ligamentous laxity or crepitance. [No] increased effusion. Hawkin's test is [negative]. [No] joint effusion noted. [No] deformity noted. [No intrinsic hand weakness noted]. [No atrophy noted]. Joshua test [negative]. Carpal compression test positive bilateral wrists. Tinel sign positive bilateral wrists and left elbow. Strength is [5/5 in all muscle groups tested]. No increased tone noted. Neurological: Neurologic examination of the upper and lower extremities was nonfocal with intact sensation, muscle stretch reflexes and without focal motor deficits [ ]. Toure?s [negative bilaterally]. Babinski was [down going bilaterally]. Clonus was [negative]. Gait is [non-]antalgic without loss of balance. Results Reviewed Results Reviewed: I independently reviewed the results of the following: Right hand X-ray showed 1st [facility] joint arthritis. XR/XR hand RT min 3V IMPRESSION: Progression in findings of osteoarthritis in the right hand and wrist as described. No acute fracture or dislocation. I reviewed records from the following: PCP, GI Assessment & Plan Assessment & Plan (1) Carpal tunnel syndrome on both sides: Code(s): G56.03 - Carpal tunnel syndrome, bilateral upper limbs (2) Hand arthritis: Code(s): M19.049 - Primary osteoarthritis, unspecified hand Plan Hand pain can be explained by hand arthritis but we need to rule out carpal tunnel syndrome that has gotten worse over the last few years after last EMG. Reasonable to repeat EMG, patient is amenable. Patient is considering surgery if appropriate or necessary after the EMG is done. Assessment and plan discussed with patent, and patient was agreeable. All questions were answered thoroughly. Follow-up after EMG. Orders: Orders NE nerve conduction velocity Today G56.03 - Carpal tunnel syndrome, bilateral upper limbs Quality Reporting (2019) Adult ([facility] 138/12/18/68) Smoking risk assessment performed?: Yes Patient Tobacco Use Status: Former Tobacco user (about a month ago) Coding Level of Care Code New Pt Level 4 (41517) Diagnoses Carpal tunnel syndrome on both sides G56.03 Hand arthritis M19.049
== END 2023-06-11 11:25 | disposition home or self-care (01) ==
PROVIDERS: PCP Physician Assistant; Visit Provider Physical Medicine & Rehabilitation
DX: G56.03 Carpal tunnel syndrome, bilateral upper limbs (principal); M19.049 Primary osteoarthritis, unspecified hand
CPT/HCPCS: 99204

== ENCOUNTER → 2023-06-11 10:40 | Outpatient (BNVA) | payer OTHER, SELFPAY | PROVIDERS: PCP Physician Assistant; Visit Provider Physical Medicine & Rehabilitation | DX: G56.03 Carpal tunnel syndrome, bilateral upper limbs (principal); M19.041 Primary osteoarthritis, right hand; M19.031 Primary osteoarthritis, right wrist | CPT/HCPCS: 99202 ==

== ENCOUNTER 2023-07-03 14:10 | Outpatient (AMB) | payer OTHER, SELFPAY ==
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
[2023-07-03 14:25] VITALS: PULSE 89; O2SAT 95; BMI 31.0
== END 2023-07-03 15:16 | disposition home or self-care (01) ==
PROVIDERS: PCP Physician Assistant; Visit Provider Hospitalist
DX: J43.2 Centrilobular emphysema (principal); J96.11 Chronic respiratory failure with hypoxia; R91.8 Other nonspecific abnormal finding of lung field
CPT/HCPCS: 99214

== ENCOUNTER → 2023-07-03 14:10 | Outpatient (BNVA) | payer OTHER, SELFPAY | PROVIDERS: Visit Provider Hospitalist | DX: J43.2 Centrilobular emphysema (principal); J96.11 Chronic respiratory failure with hypoxia; R91.8 Other nonspecific abnormal finding of lung field | CPT/HCPCS: 99212 ==

== ENCOUNTER 2023-07-17 08:46 | Outpatient (AMB) | payer OTHER, SELFPAY ==
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
[2023-07-17 08:53] VITALS: BP 132/74; PULSE 78; RESP 12; O2SAT 96; BMI 36.2
== END 2023-07-17 09:27 | disposition home or self-care (01) ==
PROVIDERS: PCP Physician Assistant; Visit Provider Nurse Practitioner Family
DX: H93.8X9 Other specified disorders of ear, unspecified ear (principal); M19.041 Primary osteoarthritis, right hand; I10 Essential (primary) hypertension
CPT/HCPCS: 99213

== ENCOUNTER 2023-09-01 09:05 | Outpatient (AMB) | payer OTHER, SELFPAY ==
[2023-09-01 09:42] VITALS: BP 126/88; PULSE 76; RESP 17; O2SAT 98
--- NOTE | 2023-09-01 09:42 | A.OFFPC_ITS ---
Vital Signs 3 09/01/23 09:42 Height 5 ft 3 in BMI Reason not done Patient refused/unable BP 126/88 Blood Pressure Location Lt brachial Position Sitting Respiration 17 Pulse 76 Pulse Source Pulse Oximeter Pulse Oximetry (%) 98 Oxygen Delivery Method Room Air Intake Visit Reasons: 4mth f/u Intake Note: Pt is here for 4 months routine f/u. 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 Required: No Accompanied by: Self / Same As Patient Allergies baclofen Allergy (Severe, Verified 09/01/23 10:02) GI upset dexamethasone Allergy (Severe, Verified 09/01/23 10:02) Vomiting doxycycline Allergy (Severe, Verified 09/01/23 10:02) Vomiting naproxen [Aleve] Allergy (Severe, Verified 09/01/23 10:02) Vomiting penicillin V Allergy (Severe, Verified 09/01/23 10:02) vomitting Sulfa (Sulfonamide Antibiotics) Allergy (Severe, Verified 09/01/23 10:02) Vomiting ibuprofen [Advil] Allergy (Intermediate, Verified 09/01/23 10:02) Vomiting codeine [Codeine] Allergy (Mild, Verified 09/01/23 10:02) VOMITING aspirin [ASPIRIN] Adverse Reaction (Severe, Verified 09/01/23 10:02) VOMITING Medication List - Last Reconciled 09/01/23 by Jigar Patel PA-C acetaminophen ER (Tylenol Arthritis Pain) 650 mg PO Q12H 30 days albuterol sulfate 90 mcg/actuation 2 inhalations inhalation Q6H PRN 30 days cephalexin 500 mg PO Q8H 7 days cholecalciferol (vitamin D3) 50 mcg PO DAILY 90 days diaper,brief,adult,disposable As directed diazepam mg PO BID PRN diphenoxylate-atropine 2.5-0.025 mg 0 tabs PO disposable gloves (Biobrane Gloves Large) As directed duloxetine (Cymbalta) 60 mg PO DAILY duloxetine 60 mg PO DAILY esomeprazole magnesium (Nexium) 40 mg PO BID uzkxrhrlkcs-qggeevhtx-zadjnqun 100-62.5-25 mcg (Trelegy Ellipta) 1 ea PO DAILY furosemide (Lasix) 10 mg (1/2 x 20 mg) PO DAILY 20 days gloves, latex with aloe vera (Aloe Vera Latex Gloves) 1 ea miscellaneous DAILY 30 days hydroxyzine HCl 25 mg PO BID 30 days ipratropium bromide 2 sprays intranasal BID 30 days levothyroxine 50 mcg PO DAILY lidocaine 5% 1 appl topical DAILY 30 days lisinopril 30 mg PO DAILY loratadine 10 mg PO DAILY 30 days menthol-zinc oxide 0.44-20.6 % (Calmoseptine) 1 appl topical QID 30 days miscellaneous medical supply 3 ea miscellaneous ONCE miscellaneous medical supply 1 ea miscellaneous DAILY 99 days miscellaneous medical supply 1 ea miscellaneous ONCE multivitamin 1 tab PO DAILY 90 days ondansetron HCl 8 mg PO QID 30 days oxycodone 10 mg PO TID PRN 7 days psyllium husk (Reguloid (psyllium husk)) 0.4 grams PO BEDTIME 30 days [right hand brace As directed] simethicone (Gas Relief (simethicone)) 125 mg PO TID PRN 30 days thiamine HCl (vitamin B1) 100 mg PO DAILY 90 days varenicline 1 mg PO BID 28 days walker (Ultra-Light Rollator misc) As directed [washable bedpads As directed] Tobacco use date assessed: 05/09/23 Dental Screening Dental Screen Date: 09/01/23 Did you have a dental visit in the last 12 months?: Yes Did you have a dental problem in the last 6 months where you did not have access to dental care?: No Was dental information given to patient?: Patient has dentist HPI 4mth f/u 2 HPI0 Details Patient is a 63-year-old female here today for follow-up visit.? Patient has a complex medical history including large bowel obstruction with revision surgery and ileostomy which has failed now has large peristomal hernia and due for surgery.? Otherwise chronic history includes COPD, hypothyroidism, lumbar disc disease, history of tobacco dependency. Unfortunately continues to be in moderate to severe pain as per patient. She does have large abdominal hernia. She continues to have frequent bowel movements that cause her rectal discomfort. She has followed up with her GI specialist (Dr. Beltrán) and apparently underwent a sigmoidoscopy though visualization was difficult. She also is followed by [facility] whom needs patient to be nicotine negative before being candidate for reconstructive surgery. She reports she has upcoming lab work to check for nicotine. SHE BELIEVES SHE WILL UNDERGO SURGERY LATER THIS MONTH. She is asking for another script for higher dose of pain medication .. Peristomal hernia:? Again as complex GI surgical history.? Speaking with GI hernia specialist in [place].? Needs to have 6 weeks without tobacco in her system.? Continues to have moderate to severe pain in her abdomen to which she takes low- dose oxycodone on a p.r.n. She also does have rectal irritation due to frequent bowel movements, has been using [id number]-[id number] creams and is requesting a lidocaine cream. Has recently seen her normal GI doctor (Dr. beltrán) -and received colonoscopy with anastomosis balloon dilation. Use done fortunately have chronic diarrhea .. Former smoker: She promises she has completely quit smoking! .. Hypertension:? Blood pressure well controlled on current dose of lisinopril.? She denies any chest discomfort, dizziness or headaches. [facility] Medical History Hypokalemia Flat feet, bilateral Chronic post-traumatic stress disorder (PTSD) Ileostomy in place Screening for breast cancer Annual physical exam Pulmonary nodules Chronic respiratory failure COPD (chronic obstructive pulmonary disease) Abdominal hernia Right lumbar radiculopathy Osteopenia Surgical History History of colectomy History of eye surgery History of colonoscopy History of umbilical hernia repair History of bladder surgery History of total abdominal hysterectomy and bilateral salpingo-oophorectomy History of cholecystectomy History of appendectomy History of tonsillectomy Colostomy status Family History Father Renal cell cancer Prostate cancer Leukemia Diabetes Hypertension Mother Hypertension Paternal Grandmother Colon cancer Maternal Grandfather Myocardial infarction Sister Lupus Daughter In good health Other Mental health disorder Social History Housing: Apartment Alcohol intake: never Patient Tobacco Use Status: Former Tobacco user (about a month ago) Quit Date: 01/2023 Tobacco use type: Cigarette Cigarettes Per Day: 4 Years Smoked: 42 years e-Cigarette/Vaping Use: Never Used service: No Current occupational status: disabled Cognitive needs: Yes (cane/walker) Hearing needs: No Vision needs: Yes (glasses) Questionnaire Thrive Questionnaire Date Thrive assessed: 04/10/23 EMILY-7 AMB Questionnaire EMILY-7 Date EMILY - 7 assessed: 04/10/23 Source: Developed by Drs. Enoch Vallecillo, Anum Jung, Nathan Tiwari and colleagues, with an educational clifton from [employer]. Review of Systems Const Denies headache(s) Eyes Denies loss of vision ENT Denies vertigo, Denies dizziness, Denies headache(s) and Denies sore throat Card Denies chest pain, Denies leg edema and Denies lightheadedness Resp Denies cough, Denies hemoptysis and Denies wheezing GI Denies abdominal pain, Denies melena, Denies constipation, Denies diarrhea and Denies vomiting Denies urinary frequency, Denies dysuria and Denies urinary urgency Musc Denies arthralgias, Denies joint swelling, Denies numbness and Denies tingling Neuro Denies Abnormal speech present, Denies behavioral changes, Denies vertigo, Denies dizziness, Denies headache(s), Denies loss of vision, Denies memory loss, Denies numbness and Denies tingling Psych Denies anxiety, Denies behavioral changes, Denies depression, Denies memory loss and Denies panic attacks Patrick/Lymph Denies easy bleeding and Denies easy bruising Aller/Immun Denies wheezing Physical exam (Primary Care) Vital Signs: Last Vital Signs Pulse 76 09/01/23 09:42 Resp 17 09/01/23 09:42 BP 126/88 09/01/23 09:42 Pulse Ox 98 09/01/23 09:42 Oxygen Delivery Method Room Air 09/01/23 09:42 Tobacco/Smoking Status: Tobacco use Status Tobacco use date assessed 05/09/23 09/01/23 09:43 Patient Tobacco Use Status Former Tobacco user (about a 09/01/23 09:43 month ago) Tobacco use type Cigarette 09/01/23 09:43 e-Cigarette/Vaping Use Never Used 09/01/23 09:43 Thrive Assessment: Date of Thrive Assessment Date Thrive assessed 04/10/23 09/01/23 09:43 Const General: healthy appearing, no acute distress, alert and awake Nutritional Appearance: well nourished Orientation/consciousness: oriented to person, oriented to place and oriented to time HENMT Ears: TM's normal bilaterally General nose exam: Normal nasal mucous membranes and turbinates present Eyes Conjunctivae: conjunctivae normal Sclerae: sclerae normal Pupils: Equal, round and reactive pupils present Neck Neck: Yes no lymphadenopathy and Yes no JVD Thyroid: Thyroid normal Carotids: no bruits Resp Effort & Inspection: normal respiratory effort and not tachypneic Auscultation: no crackles, no rales, no rhonchi and no wheezes Cardio Rate: regular rate Rhythm: regular rhythm Heart sounds: no murmurs and normal S1 and S2 GI Palpation (GI): Soft to palpation, nontender, no hepatomegaly and no splenomegaly Auscultation: normal bowel sounds Abdomen image: 2 1. LARGE HERNIA NOTED OVER MID LEFT ABDOMEN. HEALED SURGICAL SCARS NOTED OVER ABDOMEN. Skin General skin exam: no rashes or lesions noted and dry skin Neuro General: oriented to person, oriented to place and oriented to time Cranial nerves: Yes Equal, round and reactive pupils present Speech: No Abnormal speech present Gait exam (Neuro): Normal gait present Motor exam (neuro): no tremor noted Extrem Right upper extremity: full ROM Left upper extremity: full ROM Right lower extremity: full ROM; no edema Left lower extremity: full ROM; no edema Psych Mental Status: mental status grossly normal Speech and movement: Normal speech and movement present Affect: normal affect Attitude: cooperative Thought process: Normal thought process present Office Procedures Flu Questionnaire Does the patient have a severe egg allergy?: No Does the patient have severe life threatening allergies?: No Does the patient have a fever or illness today?: No Has the patient ever had Guillain-Bessie Syndrome?: No Has the patient ever had any past reaction to a flu shot?: No Immunizations flu vacc [id number] 6mos up(PF) 60 mcg(15 mcgx4)/0.5 mL IM syringe Performing Provider: Jigar Patel PA-C Performing Location: [facility] Administered by: JEF Akbar on 09/01/23 10:01 2 Dose Route Admin Location Dispensed Lot Number Expiration Date 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 Khan) [phone]- she anicipates surgery . Needs Nicotine testing to make sure negative before she is a candidate. She continues to have moderate to severe pain in her abdomen and often requires pain medication. She anticipates a reconstruction of these hernias in [place] in near future. Will give her short-term script of pain medication due to patient's reported severe pain. Also will supply her with bowels past medication (2) COPD (chronic obstructive pulmonary disease): Code(s): J44.9 - Chronic obstructive pulmonary disease, unspecified Qualifiers: COPD type: emphysema Emphysema type: centrilobular Qualified Code(s): J43.2 - Centrilobular emphysema Plan: Patient continues to follow pulmonology, does use her maintenance inhalers at home. She reports she has quit smoking recently in anticipation for hernia surgery. Again due for laboratory work prior to surgery. Orders: Orders 2 Influenza [id number] Immunization 09/01/23 Z23 - Encounter for immunization Medications: New 2 dicyclomine 20 mg PO TID 15 days 45 tabs 0RF K46.9 - Unspecified abdominal hernia without obstruction or gangrene oxycodone Partial Fill upon patient request. 15 mg PO Q8H 10 days PRN 30 tabs 0RF pain K46.9 - Unspecified abdominal hernia without obstruction or gangrene Discontinued 2 oxycodone Partial Fill upon patient request. Discontinued Reason: Doctor's Order 10 mg PO TID 7 days PRN 21 tabs 0RF pain K46.9 - Unspecified abdominal hernia without obstruction or gangrene Coding Level of Care Code Est Pt Level 4 (16071) Diagnoses Peristomal hernia K46.9 Centrilobular emphysema J43.2 COPD type: emphysema Emphysema type: centrilobular
== END 2023-09-01 10:26 | disposition home or self-care (01) ==
PROVIDERS: PCP Physician Assistant; Visit Provider Physician Assistant
DX: Z23 Encounter for immunization (principal)
CPT/HCPCS: 90471; 90686; 99214

== ENCOUNTER 2023-09-26 08:36 | Outpatient (REF) | payer OTHER, SELFPAY ==
[2023-09-26 12:09] LABS: TSH reflex Free T4 0.92 uIU/mL (0.32-4.0)
== END 2023-09-26 08:37 | disposition home or self-care (01) ==
LOC: HO.HMGCLDS 08:36
PROVIDERS: PCP Physician Assistant; Visit Provider Surgery Trauma Surgery
DX: Z01.818 Encounter for other preprocedural examination (principal)
CPT/HCPCS: 36415; 84443

== ENCOUNTER 2023-11-12 10:20 | Outpatient (AMB) | payer OTHER, SELFPAY ==
[2023-11-12 10:54] VITALS: BP 100/72; PULSE 86; O2SAT 97
--- NOTE | 2023-11-12 10:54 | A.OFFPC_ITS ---
Vital Signs 3 11/12/23 10:54 Height 5 ft 3 in BMI Reason not done Patient refused/unable BP 100/72 Blood Pressure Location Lt brachial Position Sitting Pulse 86 Pulse Source Pulse Oximeter Pulse Oximetry (%) 97 Oxygen Delivery Method Room Air Intake Visit Reasons: BLE swelling and blood thinner Intake Note: Patient is here for hospital discharge follow up. Patient was discharged from [facility] on 11/05/23. Water Valve Mechanic Required: No Accompanied by: Self / Same As Patient Allergies baclofen Allergy (Severe, Verified 11/12/23 11:03) GI upset dexamethasone Allergy (Severe, Verified 11/12/23 11:03) Vomiting doxycycline Allergy (Severe, Verified 11/12/23 11:03) Vomiting naproxen [Aleve] Allergy (Severe, Verified 11/12/23 11:03) Vomiting penicillin V Allergy (Severe, Verified 11/12/23 11:03) vomitting Sulfa (Sulfonamide Antibiotics) Allergy (Severe, Verified 11/12/23 11:03) Vomiting ibuprofen [Advil] Allergy (Intermediate, Verified 11/12/23 11:03) Vomiting codeine [Codeine] Allergy (Mild, Verified 11/12/23 11:03) VOMITING aspirin [ASPIRIN] Adverse Reaction (Severe, Verified 11/12/23 11:03) VOMITING Medication List - Last Reconciled 11/12/23 by Jigar Patel PA-C acetaminophen ER (Tylenol Arthritis Pain) 650 mg PO Q12H 30 days albuterol sulfate 90 mcg/actuation 2 inhalations inhalation Q6H PRN 30 days cephalexin 500 mg PO Q8H 7 days cholecalciferol (vitamin D3) 50 mcg PO DAILY 90 days diaper,brief,adult,disposable As directed diazepam mg PO BID PRN dicyclomine 20 mg PO TID 15 days diphenoxylate-atropine 2.5-0.025 mg 0 tabs PO disposable gloves (Biobrane Gloves Large) As directed duloxetine (Cymbalta) 60 mg PO DAILY duloxetine 60 mg PO DAILY esomeprazole magnesium (Nexium) 40 mg PO BID [id number]-wbvmdfdxn-[id number] 100-62.5-25 mcg (Trelegy Ellipta) 1 ea PO DAILY furosemide (Lasix) 40 mg PO BID gloves, latex with aloe vera (Aloe Vera Latex Gloves) 1 ea miscellaneous DAILY 30 days hydroxyzine HCl 25 mg PO BID 30 days ipratropium bromide 2 sprays intranasal BID 30 days levofloxacin 750 mg PO DAILY levothyroxine 50 mcg PO DAILY lidocaine 5% 1 appl topical DAILY 30 days lisinopril 30 mg PO DAILY loratadine 10 mg PO DAILY 30 days menthol-zinc oxide 0.44-20.6 % (Calmoseptine) 1 appl topical QID 30 days miscellaneous medical supply 3 ea miscellaneous ONCE miscellaneous medical supply 1 ea miscellaneous DAILY 99 days miscellaneous medical supply 1 ea miscellaneous ONCE multivitamin 1 tab PO DAILY 90 days ondansetron HCl 8 mg PO QID 30 days oxycodone 15 mg PO Q8H PRN 10 days oxycodone 10 mg PO QID PRN psyllium husk (Reguloid (psyllium husk)) 0.4 grams PO BEDTIME 30 days [right hand brace As directed] simethicone (Gas Relief (simethicone)) 125 mg PO TID PRN 30 days thiamine HCl (vitamin B1) 100 mg PO DAILY 90 days varenicline 1 mg PO BID 28 days walker (Ultra-Light Rollator misc) As directed [washable bedpads As directed] Tobacco use date assessed: 11/12/23 Dental Screening Dental Screen Date: 11/12/23 Did you have a dental visit in the last 12 months?: Yes Did you have a dental problem in the last 6 months where you did not have access to dental care?: No Was dental information given to patient?: Patient has dentist HPI BLE swelling and blood thinner 2 HPI0 Details Patient is a 63-year-old female here today for hospital discharge follow-up. Patient has a past medical history significant for COPD , bipolar disorder GERD hypertension, hypothyroidism. Recently diagnosed with heart failure with preserved ejection fraction, subsegmental PEs during her hospitalization. Has been started on Eliquis 5 mg b.i.d. and no overt signs of bleeding noted. Also seemed to have a decompensation her heart failure while hospitalized with evidence of lower extremity edema. Her furosemide was increased to 40 mg b.i.d.. She did see a reed or wind instrument tuner while in [place] and advised on starting statin therapy and re-establishing care with local cardiology. Was seen at [facility] for abdominal ventral hernia surgery in early September 2023 that was complicated by TWO abscesses needing IR drainage and now has drain in place. Now has a nurse coming to her home helping her with her with her catheters. She has been placed on levofloxacin 750 daily for the abscesses. She continues to be in some moderate to severe abdominal pain in his asking for another week of pain medication. She is upcoming appointment with [place] general surgeon in the next few weeks. Due to the antibiotic she has developed vaginitis and will cover the infection with vaginal cream. [facility] Medical History Hypokalemia Flat feet, bilateral Chronic post-traumatic stress disorder (PTSD) Ileostomy in place Screening for breast cancer Annual physical exam Pulmonary nodules Chronic respiratory failure COPD (chronic obstructive pulmonary disease) Abdominal hernia Right lumbar radiculopathy Osteopenia Surgical History History of colectomy History of eye surgery History of colonoscopy History of umbilical hernia repair History of bladder surgery History of total abdominal hysterectomy and bilateral salpingo-oophorectomy History of cholecystectomy History of appendectomy History of tonsillectomy Colostomy status Family History Father Renal cell cancer Prostate cancer Leukemia Diabetes Hypertension Mother Hypertension Paternal Grandmother Colon cancer Maternal Grandfather Myocardial infarction Sister Lupus Daughter In good health Other Mental health disorder Social History Housing: Apartment Alcohol intake: never Patient Tobacco Use Status: Former Tobacco user (about a month ago) Quit Date: 01/2023 Tobacco use type: Cigarette Cigarettes Per Day: 4 Years Smoked: 42 years Packs per year/per ci.00 e-Cigarette/Vaping Use: Never Used service: No Current occupational status: disabled Cognitive needs: Yes (cane/walker) Hearing needs: No Vision needs: Yes (glasses) Questionnaire PHQ-9 Over the last 2 weeks, how often have you been bothered by any of the following problems? 1. Little interest or pleasure in doing things: nearly every day 2. Feeling down, depressed, or hopeless: nearly every day 3. Trouble falling or staying asleep, or sleeping too much: more than half the days 4. Feeling tired or having little energy: more than half the days 5. Poor appetite or overeating: nearly every day 6. Feeling bad about yourself - or that you are a failure or have let yourself or your family down: nearly every day 7. Trouble concentrating on things, such as reading the newspaper or watching television: more than half the days 8. Moving or speaking so slowly that other people could have noticed. Or the opposite - being so fidgety or restless that you have been moving around a lot more than usual: not at all 9. Thoughts that you would be better off or of hurting yourself in some way: not at all Total score: 18 Depression Screening Interpretation: Positive Depression Screening Follow-up: Existing condition and In treatment Depression Screening Done: Yes 18991 - PHQ-9 Billing: Yes Source: Developed by Drs. Enoch Vallecillo, Anum Jung, Nathan Tiwari and colleagues, with an educational clifton from [employer]. Thrive Questionnaire Date Thrive assessed: 11/12/23 I am a: Patient What is your living situation today?: I have a steady place to live Within the past 12 months, did the food you bought not last and you didn't have the money to get more?: Never true Within the past 12 months, did you worry whether your food would run out before you got money to buy more?: Never true Do you have trouble paying for medicines?: No Do you have trouble getting transportation to medical appointments?: No Do you have trouble paying your heating and electricity bill?: No Do you have trouble taking care of your child, family member or friend?: No Do you have trouble with day-to-day activities such as bathing, preparing meals, shopping, managing finances, etc.?: No Are you currently unemployed and looking for a job?: No Are you interested in more education?: No Please select the resources that you would like help with: None AUDIT C Alcohol Use Questionnaire (AUDIT-C) 1. How often do you have a drink containing alcohol?: Never Total Score: 0 EMILY-7 AMB Questionnaire EMILY-7 Date EMILY - 7 assessed: 11/12/23 Feeling nervous, anxious, or on edge: 3 = Nearly every day Not being able to stop or control worryin = More than half the days Worrying too much about different things: 2 = More than half the days Trouble relaxin = Nearly every day Being so restless that it is hard to sit still: 0 = Not at all Becoming easily annoyed or irritable: 3 = Nearly every day Feeling afraid as if something awful might happen: 3 = Nearly every day Total EMILY-7 score (0-4 normal; 5-9 mild; 10-14 moderate; 15-21 severe): 16 Source: Developed by Drs. Enoch Vallecillo, nAum Jung, Nathan Tiwari and colleagues, with an educational clifton from [employer]. EMILY-7 Assessment Billing EMILY-7 Assessment Tool: EMILY-7 Assessment 60754 Review of Systems Const Denies headache(s) Eyes Denies loss of vision ENT Denies vertigo, Denies dizziness, Denies headache(s) and Denies sore throat Card Denies chest pain, Denies leg edema and Denies lightheadedness Resp Denies cough, Denies hemoptysis and Denies wheezing GI Denies abdominal pain, Denies melena, Denies constipation, Denies diarrhea and Denies vomiting Denies urinary frequency, Denies dysuria and Denies urinary urgency Musc Denies arthralgias, Denies joint swelling, Denies numbness and Denies tingling Neuro Denies Abnormal speech present, Denies behavioral changes, Denies vertigo, Denies dizziness, Denies headache(s), Denies loss of vision, Denies memory loss, Denies numbness and Denies tingling Psych Denies anxiety, Denies behavioral changes, Denies depression, Denies memory loss and Denies panic attacks Patrick/Lymph Denies easy bleeding and Denies easy bruising Aller/Immun Denies wheezing Physical exam (Primary Care) Vital Signs: Last Vital Signs Pulse 86 11/12/23 10:54 BP 100/72 11/12/23 10:54 Pulse Ox 97 11/12/23 10:54 Oxygen Delivery Method Room Air 11/12/23 10:54 Tobacco/Smoking Status: Tobacco use Status Tobacco use date assessed 11/12/23 11/12/23 11:06 Patient Tobacco Use Status Former Tobacco user (about a 11/12/23 11:06 month ago) Tobacco use type Cigarette 11/12/23 11:06 e-Cigarette/Vaping Use Never Used 11/12/23 11:06 PHQ-9: PHQ-9 Score PHQ-9: Total score 18 11/12/23 11:27 Depression Screening Interpretation: Positive Depression Screening Follow-up: Existing condition and In treatment Thrive Assessment: Date of Thrive Assessment Date Thrive assessed 11/12/23 11/12/23 11:06 Const General: healthy appearing, no acute distress, alert and awake Nutritional Appearance: well nourished Orientation/consciousness: oriented to person, oriented to place and oriented to time HENMT Ears: TM's normal bilaterally General nose exam: Normal nasal mucous membranes and turbinates present Eyes Conjunctivae: conjunctivae normal Sclerae: sclerae normal Pupils: Equal, round and reactive pupils present Neck Neck: Yes no lymphadenopathy and Yes no JVD Thyroid: Thyroid normal Carotids: no bruits Resp Effort & Inspection: normal respiratory effort and not tachypneic Auscultation: no crackles, no rales, no rhonchi and no wheezes Cardio Rate: regular rate Rhythm: regular rhythm Heart sounds: no murmurs and normal S1 and S2 GI Palpation (GI): Soft to palpation, nontender, no hepatomegaly and no splenomegaly Auscultation: normal bowel sounds Abdomen image: 2 1. NO ERYTHEMA NOTED OVER ABDOMINAL SKIN. NOTED SURGICAL SCARS WITH DRAINS IMBEDDED. Skin General skin exam: no rashes or lesions noted and dry skin Neuro General: oriented to person, oriented to place and oriented to time Cranial nerves: Yes Equal, round and reactive pupils present Speech: No Abnormal speech present Gait exam (Neuro): Normal gait present Motor exam (neuro): no tremor noted Extrem Right upper extremity: full ROM Left upper extremity: full ROM Right lower extremity: full ROM; no edema Left lower extremity: full ROM; no edema Psych Mental Status: mental status grossly normal Speech and movement: Normal speech and movement present Affect: normal affect Attitude: cooperative Thought process: Normal thought process present Assessment and Plan Assessment & Plan (1) CHF (congestive heart failure), NYHA class III: Code(s): I50.9 - Heart failure, unspecified Qualifiers: Congestive heart failure chronicity: chronic Congestive heart failure type: systolic Qualified Code(s): I50.22 - Chronic systolic (congestive) heart failure Plan: Seems to have had decompensated heart failure during her recent hospitalization for her abdominal surgery. She had lower extremity edema and furosemide dose was increased to 40 mg b.i.d.. She was evaluated by reed or wind instrument tuner while in [place] and was advised to reestablish care with local cardiology. (2) Abdominal wall abscess: Code(s): L02.211 - Cutaneous abscess of abdominal wall Plan: As per HPI patient had abdominal hernia surgery that was complicated by 2 large abdominal wall abscesses that needed IR guided drainage and drain catheter placement. Now has home nurses helping her with her catheters. Does have upcoming appointment with general surgeon. Still has abdominal pain and is requesting 1 more week of pain medication which I think is reasonable. (3) Pulmonary embolism: Code(s): I26.99 - Other pulmonary embolism without acute cor pulmonale Qualifiers: Acute cor pulmonale presence: without acute cor pulmonale Chronicity: a cute Pulmonary embolism type: unspecified Qualified Code(s): I26.99 - Other pulmonary embolism without acute cor pulmonale Plan: Did have some segmental pulmonary embolism during her hospitalization for her recent hernia surgery. Has been placed on Eliquis, Likely needs to stay on Eliquis for the next 3-6 months. (4) HLD (hyperlipidemia): Code(s): E78.5 - Hyperlipidemia, unspecified Qualifiers: Hyperlipidemia type: mixed hyperlipidemia Qualified Code(s): E78.2 - Mixed hyperlipidemia Plan: Will start moderate dose statin and continue to follow fasting lipid panel with goal LDL to be below 100. (5) S/P hernia surgery: Code(s): Z98.890 - Other specified postprocedural states; Z87.19 - Personal history of other diseases of the digestive system Plan: As above (6) Vaginitis: Code(s): N76.0 - Acute vaginitis Qualifiers: Chronicity: acute Qualified Code(s): N76.0 - Acute vaginitis Plan: Reporting vaginitis type symptoms in the setting of antibiotic use. Will supply patient with vaginal cream. Orders: Orders 2 Comprehensive [place]. Panel Fast Today E78.2 - Mixed hyperlipidemia UA CC w/rflx Micro + Cult Today N39.0 - Urinary tract infection, site not specified, R30.0 - Dysuria Lipid Panel Today E78.2 - Mixed hyperlipidemia Complete Blood Count no Diff Today E78.2 - Mixed hyperlipidemia TSH reflex Free T4 Today E03.9 - Hypothyroidism, unspecified Referrals 2 Cardiology Referral I50.22 - Chronic systolic (congestive) heart failure Medications: New 2 atorvastatin 20 mg PO DAILY 90 days 90 tabs 1RF E78.2 - Mixed hyperlipidemia furosemide 40 mg PO BID 30 days 60 tabs 2RF I50.22 - Chronic systolic (congestive) heart failure oxycodone Partial Fill upon patient request. 10 mg PO Q8H 7 days PRN 21 tabs 0RF pain Z87.19 - Personal history of other diseases of the digestive system, Z98.890 - Other specified postprocedural states miconazole nitrate 2% (Monistat 7) 1 appful vaginal BEDTIME 7 days 45 grams 0RF N76.0 - Acute vaginitis Discontinued 2 cephalexin Discontinued Reason: Doctor's Order 500 mg PO Q8H 7 days 21 caps 0RF J01.11 - Acute recurrent frontal sinusitis oxycodone Partial Fill upon patient request. Discontinued Reason: Doctor's Order 15 mg PO Q8H 10 days PRN 30 tabs 0RF pain K46.9 - Unspecified abdominal hernia without obstruction or gangrene Coding Level of Care Code Est Pt Level 4 (65856) Diagnoses Chronic systolic congestive heart failure, NYHA class 3 I50.22 Congestive heart failure chronicity: chronic Congestive heart failure type: systolic Abdominal wall abscess L02.211 Acute pulmonary embolism without acute cor pulmonale, unspecified pulmonary embolism type I26.99 Acute cor pulmonale presence: without acute cor pulmonale Chronicity: acute Pulmonary embolism type: unspecified Mixed hyperlipidemia E78.2 Hyperlipidemia type: mixed hyperlipidemia S/P hernia surgery Z98.890; Z87.19 Acute vaginitis N76.0 Chronicity: acute Additional Codes EMILY-7 Assessment Billing - EMILY-7 Assessment Tool: EMILY-7 Assessment [id number] ([id number])
== END 2023-11-12 11:52 | disposition home or self-care (01) ==
PROVIDERS: PCP Physician Assistant; Visit Provider Physician Assistant
DX: I50.22 Chronic systolic (congestive) heart failure (principal); L02.211 Cutaneous abscess of abdominal wall; I26.99 Other pulmonary embolism without acute cor pulmonale; E78.2 Mixed hyperlipidemia; Z98.890 Other specified postprocedural states; Z87.19 Personal history of other diseases of the digestive system; N76.0 Acute vaginitis
CPT/HCPCS: 99214

== ENCOUNTER 2023-12-22 08:46 | Outpatient (AMB) | payer OTHER, SELFPAY ==
--- NOTE | 2023-12-22 09:08 | MHC.PC.OV ---
Vital Signs 12/22/23 09:11 Height 5 ft 3 in Weight 188 lb 4.396 oz BMI 33.3 BP 96/68 Blood Pressure Location Lt brachial Position Sitting Pulse 105 H Pulse Source Pulse Oximeter Pulse Oximetry (%) 95 Oxygen Delivery Method Room Air Intake Visit Reasons: HDF appt from 12/10/23 Intake Note: Patient is here for hospital discharge follow up. Adult Basic Studies Teacher Required: No Accompanied by: Self / Same As Patient Allergies baclofen Allergy (Severe, Verified 12/22/23 09:17) GI upset dexamethasone Allergy (Severe, Verified 12/22/23 09:17) Vomiting doxycycline Allergy (Severe, Verified 12/22/23 09:17) Vomiting naproxen [Aleve] Allergy (Severe, Verified 12/22/23 09:17) Vomiting penicillin V Allergy (Severe, Verified 12/22/23 09:17) vomitting Sulfa (Sulfonamide Antibiotics) Allergy (Severe, Verified 12/22/23 09:17) Vomiting ibuprofen [Advil] Allergy (Intermediate, Verified 12/22/23 09:17) Vomiting codeine [Codeine] Allergy (Mild, Verified 12/22/23 09:17) VOMITING aspirin [ASPIRIN] Adverse Reaction (Severe, Verified 12/22/23 09:17) VOMITING Medication List - Last Reconciled 12/22/23 by Jigar Patel PA-C acetaminophen ER (Tylenol Arthritis Pain) 650 mg PO Q12H 30 days albuterol sulfate 90 mcg/actuation 2 inhalations inhalation Q6H PRN 30 days apixaban (Eliquis) mg PO atorvastatin 20 mg PO DAILY 90 days cholecalciferol (vitamin D3) 50 mcg PO DAILY 90 days diaper,brief,adult,disposable As directed diazepam mg PO BID PRN dicyclomine 20 mg PO TID 15 days diphenoxylate-atropine 2.5-0.025 mg 0 tabs PO disposable gloves (Biobrane Gloves Large) As directed duloxetine 60 mg PO DAILY esomeprazole magnesium (Nexium) 40 mg PO BID cqbeucmuwdo-suhzcjpbk-kzahfytf 100-62.5-25 mcg (Trelegy Ellipta) 1 ea PO DAILY furosemide 40 mg PO BID 30 days gloves, latex with aloe vera (Aloe Vera Latex Gloves) 1 ea miscellaneous DAILY 30 days hydroxyzine HCl 25 mg PO BID 30 days ipratropium bromide 2 sprays intranasal BID 30 days levothyroxine 50 mcg PO DAILY lidocaine 5% 1 appl topical DAILY 30 days lisinopril 30 mg PO DAILY loratadine 10 mg PO DAILY 30 days menthol-zinc oxide 0.44-20.6 % (Calmoseptine) 1 appl topical QID 30 days miconazole nitrate 2% (Monistat 7) 1 appful vaginal BEDTIME 7 days miscellaneous medical supply 3 ea miscellaneous ONCE miscellaneous medical supply 1 ea miscellaneous DAILY 99 days miscellaneous medical supply 1 ea miscellaneous ONCE multivitamin 1 tab PO DAILY 90 days ondansetron HCl 8 mg PO QID 30 days psyllium husk (Reguloid (psyllium husk)) 0.4 grams PO BEDTIME 30 days [right hand brace As directed] simethicone (Gas Relief (simethicone)) 125 mg PO TID PRN 30 days thiamine HCl (vitamin B1) 100 mg PO DAILY 90 days tramadol 50 mg PO BID 30 days varenicline 1 mg PO BID 28 days walker (Ultra-Light Rollator misc) As directed [washable bedpads As directed] Tobacco use date assessed: 11/12/23 HPI HDF appt from 12/10/23 HPI Details Patient is a 63-year-old female here today for hospital discharge follow-up. Patient has a past medical history significant for COPD , bipolar disorder GERD hypertension, hypothyroidism, heart failure. .. Concerns--> reports she worried about her degeneration in her back and upper extremity. She does have degenerative lumbar spine. She has active notable arthritic nodules in her hands and wrists. She reports taking tramadol which had significantly reduced her joint pains. CHF: Recently diagnosed with heart failure with preserved ejection fraction, subsegmental PEs during her hospitalization. Has been started on Eliquis 5 mg b.i.d. and no overt signs of bleeding noted. She was started on furosemide 40 mg b.i.d.. She does have an upcoming appointment to establish care with a local child nutrition director. She did see a child nutrition director while in [place] and advised on starting statin therapy and re-establishing care with local cardiology. .. COPD: Has completely stopped smoking over the last few months. Continues to have some shortness of breath at times which could be related to her recent pulmonary embolism and her Congestive heart failure.. Does follow a senior fire protection engineer here in [place] Ventral hernia: --interval history--> Was seen at [facility] for abdominal ventral hernia surgery in early September 2023 that was complicated by TWO abscesses needing IR drainage and now has drain in place. Now has a nurse coming to her home helping her with her with her catheters. She now has catheters removed and her abdominal abscess have resolved. She is feeling much better from a GI point of view. Does have upcoming appointment with her local acid conditioning worker. She still does have frequent bowel movements to which she is trying to manage with her diet. [facility] Medical History (Updated 12/23/23 @ 07:40 by Jigar Patel PA-C) Hypokalemia Flat feet, bilateral Chronic post-traumatic stress disorder (PTSD) Ileostomy in place Screening for breast cancer Annual physical exam Pulmonary nodules Chronic respiratory failure COPD (chronic obstructive pulmonary disease) Abdominal hernia Right lumbar radiculopathy Osteopenia Surgical History History of colectomy History of eye surgery History of colonoscopy History of umbilical hernia repair History of bladder surgery History of total abdominal hysterectomy and bilateral salpingo-oophorectomy History of cholecystectomy History of appendectomy History of tonsillectomy Colostomy status Family History Father Renal cell cancer Prostate cancer Leukemia Diabetes Hypertension Mother Hypertension Paternal Grandmother Colon cancer Maternal Grandfather Myocardial infarction Sister Lupus Daughter In good health Other Mental health disorder Social History Housing: Apartment Alcohol intake: never Patient Tobacco Use Status: Former Tobacco user Quit Date: 01/2023 Tobacco use type: Cigarette Cigarettes Per Day: 4 Years Smoked: 42 years Packs per year/per ci.00 e-Cigarette/Vaping Use: Never Used service: No Current occupational status: disabled Cognitive needs: Yes (cane/walker) Hearing needs: No Vision needs: Yes (glasses) Questionnaire Thrive Questionnaire Date Thrive assessed: 11/12/23 EMILY-7 AMB Questionnaire EMILY-7 Date EMILY - 7 assessed: 11/12/23 Source: Developed by Drs. Enoch Vallecillo, Anum Jung, Nathan Tiwari and colleagues, with an educational clifton from [employer]. Review of Systems Const Denies headache(s) Eyes Denies loss of vision ENT Denies vertigo, Denies dizziness, Denies headache(s) and Denies sore throat Card Denies chest pain, Denies leg edema and Denies lightheadedness Resp Denies cough, Denies hemoptysis and Denies wheezing GI Denies abdominal pain, Denies melena, Denies constipation, Denies diarrhea and Denies vomiting Denies urinary frequency, Denies dysuria and Denies urinary urgency Musc Denies arthralgias, Denies joint swelling, Denies numbness and Denies tingling Neuro Denies Abnormal speech present, Denies behavioral changes, Denies vertigo, Denies dizziness, Denies headache(s), Denies loss of vision, Denies memory loss, Denies numbness and Denies tingling Psych Denies anxiety, Denies behavioral changes, Denies depression, Denies memory loss and Denies panic attacks Patrick/Lymph Denies easy bleeding and Denies easy bruising Aller/Immun Denies wheezing Physical exam (Primary Care) Vital Signs: Last Vital Signs Pulse 105 H 12/22/23 09:11 BP 96/68 12/22/23 09:11 Pulse Ox 95 12/22/23 09:11 Oxygen Delivery Method Room Air 12/22/23 09:11 BMI result Body Mass Index 33.3 Tobacco/Smoking Status: Tobacco use Status Tobacco use date assessed 11/12/23 12/22/23 09:08 Patient Tobacco Use Status Former Tobacco user 12/22/23 09:08 Tobacco use type Cigarette 12/22/23 09:08 e-Cigarette/Vaping Use Never Used 12/22/23 09:08 Thrive Assessment: Date of Thrive Assessment Date Thrive assessed 11/12/23 12/22/23 09:08 Const General: healthy appearing, no acute distress, alert and awake Nutritional Appearance: well nourished Orientation/consciousness: oriented to person, oriented to place and oriented to time HENMT Ears: TM's normal bilaterally General nose exam: Normal nasal mucous membranes and turbinates present Eyes Conjunctivae: conjunctivae normal Sclerae: sclerae normal Pupils: Equal, round and reactive pupils present Neck Neck: Yes no lymphadenopathy and Yes no JVD Thyroid: Thyroid normal Carotids: no bruits Resp Effort & Inspection: normal respiratory effort and not tachypneic Auscultation: no crackles, no rales, no rhonchi and no wheezes Cardio Rate: regular rate Rhythm: regular rhythm Heart sounds: no murmurs and normal S1 and S2 GI Palpation (GI): Soft to palpation, nontender, no hepatomegaly and no splenomegaly Auscultation: normal bowel sounds Skin General skin exam: no rashes or lesions noted and dry skin Neuro General: oriented to person, oriented to place and oriented to time Cranial nerves: Yes Equal, round and reactive pupils present Speech: No Abnormal speech present Gait exam (Neuro): Normal gait present Motor exam (neuro): no tremor noted Extrem Right upper extremity: full ROM Left upper extremity: full ROM Right lower extremity: full ROM; no edema Left lower extremity: full ROM; no edema Psych Mental Status: mental status grossly normal Speech and movement: Normal speech and movement present Affect: normal affect Attitude: cooperative Thought process: Normal thought process present Assessment and Plan Assessment & Plan (1) CHF (congestive heart failure), NYHA class III: Code(s): I50.9 - Heart failure, unspecified Qualifiers: Congestive heart failure chronicity: chronic Congestive heart failure type: systolic Qualified Code(s): I50.22 - Chronic systolic (congestive) heart failure Plan: Seems to have had decompensated heart failure during her recent hospitalization for her abdominal surgery. She had lower extremity edema and furosemide dose was increased to 40 mg b.i.d.. She was evaluated by child nutrition director while in [place] Does have upcoming appointment to establish care with a local child nutrition director. Today in office her congestive heart failure seems to be well compensated (2) Abdominal wall abscess: Code(s): L02.211 - Cutaneous abscess of abdominal wall Plan: Has resolved (3) Pulmonary embolism: Comment: September of 2023 Code(s): I26.99 - Other pulmonary embolism without acute cor pulmonale Qualifiers: Acute cor pulmonale presence: without acute cor pulmonale Chronicity: acute Pulmonary embolism type: unspecified Qualified Code(s): I26.99 - Other pulmonary embolism without acute cor pulmonale Plan: Did have segmental pulmonary embolism during her hospitalization after her recent hernia surgery. Has been placed on Eliquis for ? Six months. (4) HLD (hyperlipidemia): Code(s): E78.5 - Hyperlipidemia, unspecified Qualifiers: Hyperlipidemia type: mixed hyperlipidemia Qualified Code(s): E78.2 - Mixed hyperlipidemia Plan: Will start moderate dose statin and continue to follow fasting lipid panel with goal LDL to be below 100. (5) S/P hernia surgery: Code(s): Z98.890 - Other specified postprocedural states; Z87.19 - Personal history of other diseases of the digestive system Plan: As above (6) Degenerative lumbar spinal stenosis: Code(s): M48.061 - Spinal stenosis, lumbar region without neurogenic claudication Plan: Continues to complain of lower lumbar spine pain. Again offered her physical therapy and pain management referral though she declines stating she is already try this. She is interested in medication to help her be more physically active and walk better. She does use a walker for ambulatory assistance. We did have long discussion and agreed upon tramadol 50 mg to use on a twice a day as needed basis. (7) COPD (chronic obstructive pulmonary disease): Code(s): J44.9 - Chronic obstructive pulmonary disease, unspecified Qualifiers: COPD type: emphysema Emphysema type: centrilobular Qualified Code(s): J43.2 - Centrilobular emphysema Plan: As above patient was a former smoker. She reports completely quitting smoking before her hernia surgeries. Continues to have some shortness of breath especially on exertion. Of note does have segmental PEs perioperatively in September 2023. Also does have Congestive heart failure though seems to be well compensated at this time. (8) Chronic post-traumatic stress disorder (PTSD): Code(s): F43.12 - Post-traumatic stress disorder, chronic Plan: She continues to suffer with PTSD symptoms and major depressive disorder. She does speak with a mental health therapist and a psychiatrist and will be working with them to manage her mental health issues. Medications: New tramadol 50 mg PO BID 30 days 60 tabs 3RF pain M48.061 - Spinal stenosis, lumbar region without neurogenic claudication Discontinued oxycodone Partial Fill upon patient request. Discontinued Reason: Doctor's Order 10 mg PO Q8H 7 days PRN 21 tabs 0RF pain Z87.19 - Personal history of other diseases of the digestive system, Z98.890 - Other specified postprocedural states Coding Level of Care Code Est Pt Level 4 (42149) Diagnoses Chronic systolic congestive heart failure, NYHA class 3 I50.22 Congestive heart failure chronicity: chronic Congestive heart failure type: systolic Abdominal wall abscess L02.211 Acute pulmonary embolism without acute cor pulmonale, unspecified pulmonary embolism type I26.99 Acute cor pulmonale presence: without acute cor pulmonale Chronicity: acute Pulmonary embolism type: unspecified Mixed hyperlipidemia E78.2 Hyperlipidemia type: mixed hyperlipidemia S/P hernia surgery Z98.890; Z87.19 Degenerative lumbar spinal stenosis M48.061 Centrilobular emphysema J43.2 COPD type: emphysema Emphysema type: centrilobular Chronic post-traumatic stress disorder (PTSD) F43.12
[2023-12-22 09:11] VITALS: BP 96/68; PULSE 105; O2SAT 95; BMI 33.3
== END 2023-12-22 09:51 | disposition home or self-care (01) ==
PROVIDERS: PCP Physician Assistant; Visit Provider Physician Assistant
DX: I50.22 Chronic systolic (congestive) heart failure (principal); I26.99 Other pulmonary embolism without acute cor pulmonale; J43.2 Centrilobular emphysema; L02.211 Cutaneous abscess of abdominal wall; E78.2 Mixed hyperlipidemia; Z98.890 Other specified postprocedural states; Z87.19 Personal history of other diseases of the digestive system; M48.061 Spinal stenosis, lumbar region without neurogenic claudication; F43.12 Post-traumatic stress disorder, chronic
CPT/HCPCS: 99214

== ENCOUNTER 2024-01-02 10:20 | Outpatient (AMB) | payer OTHER, SELFPAY ==
[2024-01-02 10:37] VITALS: BP 118/64; PULSE 91; O2SAT 97; BMI 34.7
--- NOTE | 2024-01-02 10:37 | A.OFFVIS_ITS ---
Intake Vital Signs 01/02/24 10:37 Height 5 ft 3 in Weight 196 lb BMI 34.7 BP 118/64 Blood Pressure Location Lt brachial Position Sitting Pulse 91 Pulse Source Doppler Pulse Oximetry (%) 97 Oxygen Delivery Method Room Air Intake Visit Reasons: COPD Allergies baclofen Allergy (Severe, Verified 01/02/24 10:45) GI upset dexamethasone Allergy (Severe, Verified 01/02/24 10:45) Vomiting doxycycline Allergy (Severe, Verified 01/02/24 10:45) Vomiting naproxen [Aleve] Allergy (Severe, Verified 01/02/24 10:45) Vomiting penicillin V Allergy (Severe, Verified 01/02/24 10:45) vomitting Sulfa (Sulfonamide Antibiotics) Allergy (Severe, Verified 01/02/24 10:45) Vomiting ibuprofen [Advil] Allergy (Intermediate, Verified 01/02/24 10:45) Vomiting codeine [Codeine] Allergy (Mild, Verified 01/02/24 10:45) VOMITING aspirin [ASPIRIN] Adverse Reaction (Severe, Verified 01/02/24 10:45) VOMITING HPI HPI Comments History of Present Illness Details The patient is a 63 y/o woman with a history of underlying COPD and tobacco dependency. She continues on the Anoro. Does not appear to be effective for her. Still complains of productive cough and dyspnea. Yqsu-na-yzvdbsgn severity. She did better on the Trelegy. However, her insurance would not cover. Therefore, we will add Arnuity. She has been having issues with significant back pain. Her surgery currently on hold. She is having significant GI issues with active GI bleeding. She will be calling her cork pressing machine operator today for an earlier assessment. We did review her CT scan of the chest that she had this June 2018 demonstrating stable lymphadenopathy and pulmonary nodules. She did have CT scan of the chest while at [facility] demonstrating small pulmonary nodules are stable from 2011. Will see if we can get her in to the lung cancer screening program next year. In the meantime the patient also had pulmonary function studies demonstrating a normal FEV1 suggesting that she has chronic bronchitis with no definitive obstruction on spirometry. There she did have a CT scan of the chest demonstrating again the hiatal hernia dilated esophagus in addition to bilateral airspace disease the bases suggesting aspiration pneumonia and pneumonitis. 07/03/2023 the patient is here for pulmonary follow-up visit. The patient is complaining significant shortness of breath. Moderate severity. Hard to do any activities of daily living. She is suffering at home where she does not have any air conditioning. Her home feels like 100 degrees the patient states. Is very hard to breathe. She was supposed to have an air conditioner placed however has not yet been placed. The patient is very upset. in the meantime we did have ago for 6 minutes walk test. The patient was very dyspneic with a dyspnea score of 8/10. She had to sit down. Her oxygen levels were 98-99%. She did not qualify for any oxygen supplementation. The patient also had a spirometry. She did have pre and post numbers. It appears that the 2nd spirometry the patient is lung capacity decreased. It may have been effort related or fatigue related or neuromuscular disease. Still no evidence of any obstructive airway disease which is reassuring. Also no significant response to bronchodilators noted. She does have a mild restrictive defect. The patient has been on Trelegy inhaler. At this point she does not need additional medications although she which she does need is an air conditioner. She is in participating in the lung cancer screening program. She will be having her yearly CT scan. 01/02/2024 the patient is here for a pulhernán suárez follow-up visit. She has had a very eventful several months. Back in the fall she did go to [place] was evaluated for her hernia. She did undergo an extensive abdominal hernia repair. Ultimately complicated by wound infection in intra-abdominal abscess. She required multiple drains and antibiotics. They were able to clear the infection good. Down she is recovering from that and still having some abdominal discomfort. The 1 good thing is that she did quit smoking. She feels better from a respiratory status. Her chest congestion is improved. Her oxygenation is also improved. She does have the inhalers that she does use with good effect. She has not required her rescue inhaler. The last CT scan of the chest that she has had was from 2021. No evidence of any concerning nodules. She did have some slight pericardial effusion. She had been participating in the lung cancer screening program. At some point she needs to go back in the program although right now she is dealing with her significant GI issue. The patient will follow-up in 8-10 months if the patient develops any worsening symptoms prior to that she will call for an earlier assessment. [facility] Medical History (Updated 12/23/23 @ 07:40 by Jigar Patel PA-C) Hypokalemia Flat feet, bilateral Chronic post-traumatic stress disorder (PTSD) Ileostomy in place Screening for breast cancer Annual physical exam Pulmonary nodules Chronic respiratory failure COPD (chronic obstructive pulmonary disease) Abdominal hernia Right lumbar radiculopathy Osteopenia Surgical History History of colectomy History of eye surgery History of colonoscopy History of umbilical hernia repair History of bladder surgery History of total abdominal hysterectomy and bilateral salpingo-oophorectomy History of cholecystectomy History of appendectomy History of tonsillectomy Colostomy status Family History Father Renal cell cancer Prostate cancer Leukemia Diabetes Hypertension Mother Hypertension Paternal Grandmother Colon cancer Maternal Grandfather Myocardial infarction Sister Lupus Daughter In good health Other Mental health disorder Social History Housing: Apartment Alcohol intake: never Patient Tobacco Use Status: Former Tobacco user Quit Date: 01/2023 Tobacco use type: Cigarette Cigarettes Per Day: 4 Years Smoked: 42 years e-Cigarette/Vaping Use: Never Used service: No Current occupational status: disabled Cognitive needs: Yes (cane/walker) Hearing needs: No Vision needs: Yes (glasses) Review of Systems Const Denies night sweats ENT Denies change in voice, Denies lip swelling, Denies mouth pain, Reports nasal congestion, Reports nasal discharge and Denies tongue swelling Card Denies chest pain and Reports dyspnea on exertion Resp Reports cough, Reports dyspnea on exertion and Denies wheezing GI Reports abdominal pain Musc Denies no additional complaints Neuro Denies Neuro-related abnormal movements Psych Denies no additional complaints Patrick/Lymph Denies easy bleeding and Denies lymphadenopathy Aller/Immun Denies lip swelling, Denies tongue swelling and Denies wheezing Physical Exam Vital Signs: Last Vital Signs Pulse 91 01/02/24 10:37 BP 118/64 01/02/24 10:37 Pulse Ox 97 01/02/24 10:37 Oxygen Delivery Method Room Air 01/02/24 10:37 BMI result Body Mass Index 34.7 Const General: alert Chest Chest palpation & inspection: normal inspection of the chest Resp Effort & Inspection: normal respiratory effort Auscultation: diminished lung sounds Cardio Rate: regular rate Rhythm: regular rhythm Heart sounds: S1 normal heart sound present and S2 normal heart sound present GI Palpation (GI): Soft to palpation General: Yes no CVA tenderness Back/Spine/Pelvis Back: no CVA tenderness Skin General skin exam: no rashes or lesions noted Extrem General: Yes no clubbing, cyanosis or edema Assessment & Plan Assessment & Plan (1) COPD (chronic obstructive pulmonary disease): Code(s): J44.9 - Chronic obstructive pulmonary disease, unspecified Qualifiers: COPD type: emphysema Emphysema type: centrilobular Qualified Code(s): J43.2 - Centrilobular emphysema Plan: Continue respiratory therapy (2) Chronic respiratory failure: Code(s): J96.10 - Chronic respiratory failure, unspecified whether with hypoxia or hypercapnia Qualifiers: Respiratory failure complication: hypoxia Qualified Code(s): J96.11 - Chronic respiratory failure with hypoxia Plan: The patient does not require oxygen supplementation with activity at this time. (3) Pulmonary nodules: Code(s): R91.8 - Other nonspecific abnormal finding of lung field Plan Continue Trelegy DUSTIN as needed LDCT F/U 6-8 months Quality Reporting (2019) Adult ([facility] 138/12/18/68) Smoking risk assessment performed?: Yes Patient Tobacco Use Status: Former Tobacco user Coding Level of Care Code Est Pt Level 4 (39397) Diagnoses Centrilobular emphysema J43.2 COPD type: emphysema Emphysema type: centrilobular Chronic respiratory failure with hypoxia J96.11 Respiratory failure complication: hypoxia Pulmonary nodules R91.8 Time Spent (min) 17
== END 2024-01-02 11:07 | disposition home or self-care (01) ==
PROVIDERS: PCP Physician Assistant; Visit Provider Hospitalist
DX: J43.2 Centrilobular emphysema (principal); J96.11 Chronic respiratory failure with hypoxia; R91.8 Other nonspecific abnormal finding of lung field
CPT/HCPCS: 99214

== ENCOUNTER → 2024-01-02 10:20 | Outpatient (BNVA) | payer OTHER, SELFPAY | PROVIDERS: PCP Physician Assistant; Visit Provider Hospitalist | DX: J43.2 Centrilobular emphysema (principal); J96.11 Chronic respiratory failure with hypoxia; R91.8 Other nonspecific abnormal finding of lung field | CPT/HCPCS: 99212 ==

== ENCOUNTER 2024-01-30 10:11 | Outpatient (AMB) | payer OTHER, SELFPAY ==
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
== END 2024-01-30 11:12 | disposition home or self-care (01) ==
LOC: HO.HOP 10:11
PROVIDERS: PCP Physician Assistant; Visit Provider Clinical Nurse Specialist Psychiatric/Mental Health
DX: F60.3 Borderline personality disorder (principal); F43.12 Post-traumatic stress disorder, chronic
CPT/HCPCS: 99215

== ENCOUNTER → 2024-01-30 10:11 | Outpatient (BNVA) | payer OTHER, SELFPAY | PROVIDERS: PCP Physician Assistant; Visit Provider Clinical Nurse Specialist Psychiatric/Mental Health | DX: F43.12 Post-traumatic stress disorder, chronic (principal); F60.3 Borderline personality disorder | CPT/HCPCS: 99212 ==

== ENCOUNTER 2024-02-20 09:54 | Outpatient (REF) | payer OTHER, SELFPAY ==
[2024-02-20 13:33] LABS: Appearance Urine Clear; Color Urine Yellow; Glucose Urine UA Negative (Negative); Leukocyte Esterase Urine Small (1+) (Negative); Nitrite Urine Negative (Negative); PH 6.5 (5.0-9.0); Specific Gravity - Urine 1.015 (1.005-1.025); UMIC TRIGGER UACC YES; Urine Blood Small (1+) (Negative); Urine Ketones Negative (Negative); Urine Protein Trace mg/dL (Neg-Trace)
[2024-02-20 13:37] LABS: Bacteria Urine None Seen (None Seen); Hyaline Casts Urine 0-2 /LPF (0-2); UACC Culture Trigger YES
[2024-02-20 13:39] LABS: Hematocrit 39.2 % (37.0-47.0); Hemoglobin 13.6 g/dl (12.0-16.0); Mean Corpuscular HGB Conc 34.7 g/dl (31.0-35.0); Mean Corpuscular Hemoglobin 28.5 pg (27.0-33.0); Mean Corpuscular Volume 82.2 fL (80.0-98.0); Mean Platelet Volume 9.9 fL (9.4-12.3); Platelet Count 346 X10*3/uL (160-400); Red Blood Count 4.77 X10*6/uL (4.20-5.50); Red Cell Distribution Width 14.5 % (11.0-16.0); White Blood Count 7.2 X10*3/uL (4.8-10.8)
[2024-02-20 14:17] LABS: Alanine Aminotransferase 17 U/L (0-31); Albumin Level 4.7 g/dL (3.5-5.0); Alkaline Phosphatase 136 U/L (39-117); Anion Gap 14 (12-20); Aspartate Amino Transferase 16 U/L (5-31); Bilirubin Total 0.3 mg/dL (0.0-1.0); Blood Urea Nitrogen 18 mg/dL (9-16); Calcium 9.9 mg/dL (8.4-10.2); Carbon Dioxide 29 mmol/L (22-29); Chloride 91 mmol/L (96-108); Cholesterol 106 mg/dL (<200); Estimated Glomerular Filt Rate > 60; Glucose Fasting 112 mg/dL (60-99); HDL Cholesterol 53 mg/dL (>40); LDL Cholesterol Calculated 35 mg/dL (<100); Potassium 3.2 mmol/L (3.3-5.1); Sodium 131 mmol/L (135-145); Total Protein 7.7 g/dL (6.5-8.0); Triglycerides 91 mg/dL (<150)
[2024-02-20 14:22] LABS: TSH reflex Free T4 0.97 uIU/mL (0.32-4.0)
== END 2024-02-20 09:55 | disposition home or self-care (01) ==
LOC: HO.HMGCLDS 09:54
PROVIDERS: PCP Physician Assistant; Visit Provider Physician Assistant
DX: E78.2 Mixed hyperlipidemia (principal); E03.9 Hypothyroidism, unspecified; R30.0 Dysuria; N39.0 Urinary tract infection, site not specified
CPT/HCPCS: 36415; 80053; 80061; 81001; 84443; 85027; 87086

== ENCOUNTER 2024-02-25 13:22 | Outpatient (AMB) | payer OTHER, SELFPAY ==
--- NOTE | 2024-02-25 13:24 | A.OFFPC_ITS ---
Vital Signs 02/25/24 13:32 Height 5 ft 3 in BMI Reason not done Patient refused/unable BP 118/78 Blood Pressure Location Lt brachial Position Sitting Pulse 130 H Pulse Source Pulse Oximeter Pulse Oximetry (%) 97 Oxygen Delivery Method Room Air Intake Visit Reasons: Marni 02/10 Fire Prevention Chief Required: No Accompanied by: Self / Same As Patient Allergies baclofen Allergy (Severe, Verified 02/25/24 13:38) GI upset dexamethasone Allergy (Severe, Verified 02/25/24 13:38) Vomiting doxycycline Allergy (Severe, Verified 02/25/24 13:38) Vomiting naproxen [Aleve] Allergy (Severe, Verified 02/25/24 13:38) Vomiting penicillin V Allergy (Severe, Verified 02/25/24 13:38) vomitting Sulfa (Sulfonamide Antibiotics) Allergy (Severe, Verified 02/25/24 13:38) Vomiting ibuprofen [Advil] Allergy (Intermediate, Verified 02/25/24 13:38) Vomiting codeine [Codeine] Allergy (Mild, Verified 02/25/24 13:38) VOMITING aspirin [ASPIRIN] Adverse Reaction (Severe, Verified 02/25/24 13:38) VOMITING Medication List - Last Reconciled 02/25/24 by Jigar Patel PA-C acetaminophen ER 650 mg PO Q12H albuterol sulfate 90 mcg/actuation 2 inhalations inhalation Q6H PRN 30 days apixaban (Eliquis) 5 mg PO BID 30 days atorvastatin 20 mg PO DAILY 90 days brexpiprazole (Rexulti) 0.5 mg PO DAILY cholecalciferol (vitamin D3) 50 mcg PO DAILY 90 days diaper,brief,adult,disposable As directed diazepam 7.5 mg (1.5 x 5 mg) PO TID PRN 30 days diphenoxylate-atropine 2.5-0.025 mg 0 tabs PO disposable gloves (Biobrane Gloves Large) As directed duloxetine (Cymbalta) 30 mg PO DAILY 30 days duloxetine 60 mg PO DAILY esomeprazole magnesium (Nexium) 40 mg PO BID esomeprazole magnesium 40 mg PO BID qrouelawlrw-tdvindqxp-lsgskiao 100-62.5-25 mcg (Trelegy Ellipta) 1 ea PO DAILY furosemide 40 mg PO BID gloves, latex with aloe vera (Aloe Vera Latex Gloves) 1 ea miscellaneous DAILY 30 days hydroxyzine HCl 25 mg orally take 1-2 tabs (25mg to 50 mg ) twice a day as needed; 30 days levothyroxine 50 mcg PO DAILY lidocaine 5% 1 appl topical DAILY 30 days lisinopril 30 mg PO DAILY loratadine 10 mg PO DAILY 30 days menthol-zinc oxide 0.44-20.6 % (Calmoseptine) 1 appl topical QID 30 days multivitamin 1 tab PO DAILY 90 days nitrofurantoin monohyd/m-cryst 100 mg (Macrobid) 100 mg PO BID 5 days ondansetron HCl 8 mg PO QID 30 days polyethylene glycol 3350 17 grams PO DAILY potassium chloride ER (Klor-Con M) 20 mEq PO DAILY 30 days [right hand brace As directed] simethicone (Gas Relief (simethicone)) 125 mg PO TID PRN 30 days thiamine HCl (vitamin B1) 100 mg PO DAILY 90 days tramadol 50 mg PO BID 30 days walker (Ultra-Light Rollator misc) As directed [washable bedpads As directed] Tobacco use date assessed: 11/12/23 Dental Screening Dental Screen Date: 11/12/23 HPI [facility] 02/10 [facility] Details Patient is a 63-year-old female here today for hospital discharge follow-up. Patient has a past medical history significant for COPD , bipolar disorder GERD hypertension, hypothyroidism, heart failure. Recently admitted to [facility] for acute abdominal pain and diarrhea. CT of abdomen did show evidence of a small bowel obstruction. She was made NPO and given NG tube and pain medication. GI also consulted whom recommended outpatient SIBO testing and to start fiber supplementation.. Unfortunately has Another 2 abdominal hernia and will be following up with [place] hernia specialist. She now reports she has hernia pain in his asking for few more oxycodone as she is found that these are helpful for her hernia related pain.. Continues on tramadol for her arthritic pain. Also was recently seen at [facility] psychiatrist due to worsening depression and anxiety. She was feeling that her mental health medications were not helpful. She does have a mental health therapist she is speaks to as well. Her meds were adjusted namely her diazepam reduced in dose and her hydroxyzine increased in dose. Also will started on Rexulti. . Polyarthralgia: reports she worried about her degeneration in her back and upper extremity. She does have degenerative lumbar spine. She has active notable arthritic nodules in her hands and wrists. She reports taking tramadol which had significantly reduced her joint pains. CHF: Recently diagnosed with heart failure with preserved ejection fraction, subsegmental PEs during her hospitalization. Has been started on Eliquis 5 mg b.i.d. and no overt signs of bleeding noted. She was started on furosemide 40 mg b.i.d.. She does have an upcoming appointment to establish care with a local curator of photography and prints. She did see a curator of photography and prints while in [place] and advised on starting statin therapy and re-establishing care with local cardiology. .. COPD: Has completely stopped smoking over the last few months. Continues to have some shortness of breath at times which could be related to her recent pulmonary embolism and her Congestive heart failure.. Does follow a furnace tender here in [place] Ventral hernia: --interval history--> Was seen at [facility] for abdominal ventral hernia surgery in early September 2023 that was complicated by TWO abscesses needing IR drainage and now has drain in place. Now has a nurse coming to her home helping her with her with her catheters. [facility] Medical History (Updated 02/25/24 @ 14:40 by Jigar Patel PA-C) Hypokalemia Flat feet, bilateral Chronic post-traumatic stress disorder (PTSD) Screening for breast cancer Annual physical exam Pulmonary nodules Chronic respiratory failure COPD (chronic obstructive pulmonary disease) Abdominal hernia Right lumbar radiculopathy Osteopenia Surgical History (Updated 02/25/24 @ 14:39 by Jigar Patel PA-C) History of colectomy History of eye surgery History of colonoscopy History of umbilical hernia repair History of bladder surgery History of total abdominal hysterectomy and bilateral salpingo-oophorectomy History of cholecystectomy History of appendectomy History of tonsillectomy Family History Father Renal cell cancer Prostate cancer Leukemia Diabetes Hypertension Mother Hypertension Paternal Grandmother Colon cancer Maternal Grandfather Myocardial infarction Sister Lupus Daughter In good health Other Mental health disorder Social History Housing: Apartment Alcohol intake: never Patient Tobacco Use Status: Former Tobacco user Quit Date: 01/2023 Tobacco use type: Cigarette Cigarettes Per Day: 4 Years Smoked: 42 years Packs per year/per ci.00 e-Cigarette/Vaping Use: Never Used service: No Current occupational status: disabled Cognitive needs: Yes (cane/walker) Hearing needs: No Vision needs: Yes (glasses) Questionnaire Thrive Questionnaire Date Thrive assessed: 11/12/23 EMILY-7 AMB Questionnaire EMILY-7 Date EMILY - 7 assessed: 11/12/23 Source: Developed by Drs. Enoch Vallecillo, Anum Jung, Nathan Tiwari and colleagues, with an educational clifton from [employer]. Review of Systems Const Denies headache(s) Eyes Denies loss of vision ENT Denies vertigo, Denies dizziness, Denies headache(s) and Denies sore throat Card Denies chest pain, Denies leg edema and Denies lightheadedness Resp Denies cough, Denies hemoptysis and Denies wheezing GI Denies abdominal pain, Denies melena, Denies constipation, Denies diarrhea and Denies vomiting Denies urinary frequency, Denies dysuria and Denies urinary urgency Musc Denies arthralgias, Denies joint swelling, Denies numbness and Denies tingling Neuro Denies Abnormal speech present, Denies behavioral changes, Denies vertigo, Denies dizziness, Denies headache(s), Denies loss of vision, Denies memory loss, Denies numbness and Denies tingling Psych Denies anxiety, Denies behavioral changes, Denies depression, Denies memory loss and Denies panic attacks Patrick/Lymph Denies easy bleeding and Denies easy bruising Aller/Immun Denies wheezing Physical exam (Primary Care) Vital Signs: Last Vital Signs Pulse 130 H 02/25/24 13:32 BP 118/78 02/25/24 13:32 Pulse Ox 97 02/25/24 13:32 Oxygen Delivery Method Room Air 02/25/24 13:32 Tobacco/Smoking Status: Tobacco use Status Tobacco use date assessed 11/12/23 02/25/24 13:24 Patient Tobacco Use Status Former Tobacco user 02/25/24 13:24 Tobacco use type Cigarette 02/25/24 13:24 e-Cigarette/Vaping Use Never Used 02/25/24 13:24 Thrive Assessment: Date of Thrive Assessment Date Thrive assessed 11/12/23 02/25/24 13:24 Const General: healthy appearing, no acute distress, alert and awake Nutritional Appearance: well nourished Orientation/consciousness: oriented to person, oriented to place and oriented to time HENMT Ears: TM's normal bilaterally General nose exam: Normal nasal mucous membranes and turbinates present Eyes Conjunctivae: conjunctivae normal Sclerae: sclerae normal Pupils: Equal, round and reactive pupils present Neck Neck: Yes no lymphadenopathy and Yes no JVD Thyroid: Thyroid normal Carotids: no bruits Resp Effort & Inspection: normal respiratory effort and not tachypneic Auscultation: no crackles, no rales, no rhonchi and no wheezes Cardio Rate: regular rate Rhythm: regular rhythm Heart sounds: no murmurs and normal S1 and S2 GI Palpation (GI): Soft to palpation, nontender, no hepatomegaly and no splenomegaly Auscultation: normal bowel sounds Skin General skin exam: no rashes or lesions noted and dry skin Neuro General: oriented to person, oriented to place and oriented to time Cranial nerves: Yes Equal, round and reactive pupils present Speech: No Abnormal speech present Gait exam (Neuro): Normal gait present Motor exam (neuro): no tremor noted Extrem Right upper extremity: full ROM Left upper extremity: full ROM Right lower extremity: full ROM; no edema Left lower extremity: full ROM; no edema Psych Mental Status: mental status grossly normal Speech and movement: Normal speech and movement present Affect: normal affect Attitude: cooperative Thought process: Normal thought process present Assessment and Plan Assessment & Plan (1) Idiopathic pyuria: Code(s): R82.81 - Pyuria Plan: Continues to have pyuria on urinalysis. Urine culture have been negative for bacteria culture. (2) Abdominal hernia: Code(s): K46.9 - Unspecified abdominal hernia without obstruction or gangrene Qualifiers: Hernia type: incisional Obstruction and gangrene presence: with obstruction but without gangrene Qualified Code(s): K43.0 - Incisional hernia with obstruction, without gangrene Plan: Patient is status post hernia repair in [place] done in September of 2023. Unfortunately now per patient reports having recurrent midline hernia in left abdomen hernia. I did agree to give her short term script for oxycodone 10 mg for breakthrough pain related to her hernias.. She reports hernia pain and will be following up with [place] hernia specialist for re-evaluation. (3) CHF (congestive heart failure), NYHA class III: Code(s): I50.9 - Heart failure, unspecified Qualifiers: Congestive heart failure chronicity: chronic Congestive heart failure type: systolic Qualified Code(s): I50.22 - Chronic systolic (congestive) heart failure Plan: Seems to have had decompensated heart failure during her recent hospitalization for her abdominal surgery. She had lower extremity edema and furosemide dose was increased to 40 mg b.i.d.. She was evaluated by curator of photography and prints while in [place] Does have upcoming appointment to establish care with a local curator of photography and prints. Today in office her congestive heart failure seems to be well compensated (4) Pulmonary embolism: Comment: September of 2023 Code(s): I26.99 - Other pulmonary embolism without acute cor pulmonale Qualifiers: Acute cor pulmonale presence: without acute cor pulmonale Chronicity: acute Pulmonary embolism type: unspecified Qualified Code(s): I26.99 - Other pulmonary embolism without acute cor pulmonale Plan: Did have segmental pulmonary embolism during her hospitalization after her recent hernia surgery. Has been placed on Eliquis for ? Six months. (5) HLD (hyperlipidemia): Code(s): E78.5 - Hyperlipidemia, unspecified Qualifiers: Hyperlipidemia type: mixed hyperlipidemia Qualified Code(s): E78.2 - Mixed hyperlipidemia Plan: Will start moderate dose statin and continue to follow fasting lipid panel with goal LDL to be below 100. (6) S/P hernia surgery: Code(s): Z98.890 - Other specified postprocedural states; Z87.19 - Personal history of other diseases of the digestive system Plan: As above (7) Degenerative lumbar spinal stenosis: Code(s): M48.061 - Spinal stenosis, lumbar region without neurogenic claudication Plan: Continues to complain of lower lumbar spine pain. Again offered her physical therapy and pain management referral though she declines stating she is already try this. She is interested in medication to help her be more physically active and walk better. She does use a walker for ambulatory assistance. We did have long discussion and agreed upon tramadol 50 mg to use on a twice a day as needed basis. (8) COPD (chronic obstructive pulmonary disease): Code(s): J44.9 - Chronic obstructive pulmonary disease, unspecified Qualifiers: COPD type: emphysema Emphysema type: centrilobular Qualified Code(s): J43.2 - Centrilobular emphysema Plan: As above patient was a former smoker. She reports completely quitting smoking before her hernia surgeries. Continues to have some shortness of breath especially on exertion. Of note does have segmental PEs perioperatively in September 2023. Also does have Congestive heart failure though seems to be well compensated at this time. (9) Chronic post-traumatic stress disorder (PTSD): Code(s): F43.12 - Post-traumatic stress disorder, chronic Plan: She continues to suffer with PTSD symptoms and major depressive disorder. She does speak with a mental health therapist and a psychiatrist and will be working with them to manage her mental health issues. Orders: Orders PT Evaluation and Treatment Today M47.816 - Spondylosis without myelopathy or radiculopathy, lumbar region, M51.9 - Unspecified thoracic, thoracolumbar and lumbosacral intervertebral disc disorder Referrals [employer] Referral Z90.49 - Acquired absence of other specified parts of digestive tract Medications: New oxycodone Partial Fill upon patient request. 10 mg PO DAILY PRN 4 tabs 0RF pain 4 days K43.2 - Incisional hernia without obstruction or gangrene Refilled acetaminophen ER 650 mg PO Q12H 56 tabs 3RF M19.90 - Unspecified osteoarthritis, unspecified site, M54.16 - Radiculopathy, lumbar region Coding Level of Care Code Est Pt Level 4 (99357) Diagnoses Idiopathic pyuria R82.81 Incisional hernia with obstruction but no gangrene K43.0 Hernia type: incisional Obstruction and gangrene presence: with obstruction but without gangrene Chronic systolic congestive heart failure, NYHA class 3 I50.22 Congestive heart failure chronicity: chronic Congestive heart failure type: systolic Acute pulmonary embolism without acute cor pulmonale, unspecified pulmonary embolism type I26.99 Acute cor pulmonale presence: without acute cor pulmonale Chronicity: acute Pulmonary embolism type: unspecified Mixed hyperlipidemia E78.2 Hyperlipidemia type: mixed hyperlipidemia S/P hernia surgery Z98.890; Z87.19 Degenerative lumbar spinal stenosis M48.061 Centrilobular emphysema J43.2 COPD type: emphysema Emphysema type: centrilobular Chronic post-traumatic stress disorder (PTSD) F43.12
[2024-02-25 13:32] VITALS: BP 118/78; PULSE 130; O2SAT 97
== END 2024-02-25 14:11 | disposition home or self-care (01) ==
PROVIDERS: PCP Physician Assistant; Visit Provider Physician Assistant
DX: J43.2 Centrilobular emphysema (principal); I50.22 Chronic systolic (congestive) heart failure; I26.99 Other pulmonary embolism without acute cor pulmonale; K43.0 Incisional hernia with obstruction, without gangrene; R82.81 Pyuria; E78.2 Mixed hyperlipidemia; Z98.890 Other specified postprocedural states; Z87.19 Personal history of other diseases of the digestive system; M48.061 Spinal stenosis, lumbar region without neurogenic claudication; F43.12 Post-traumatic stress disorder, chronic
CPT/HCPCS: 99214

== ENCOUNTER 2024-03-05 10:52 | Outpatient (AMB) | payer OTHER, SELFPAY ==
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
== END 2024-03-05 11:44 | disposition home or self-care (01) ==
LOC: HO.HOP 10:52
PROVIDERS: PCP Physician Assistant; Visit Provider Clinical Nurse Specialist Psychiatric/Mental Health
DX: F43.12 Post-traumatic stress disorder, chronic (principal)
CPT/HCPCS: 99214

== ENCOUNTER → 2024-03-05 10:52 | Outpatient (BNVA) | payer OTHER, SELFPAY | PROVIDERS: PCP Physician Assistant; Visit Provider Clinical Nurse Specialist Psychiatric/Mental Health | DX: F43.12 Post-traumatic stress disorder, chronic (principal); F33.9 Major depressive disorder, recurrent, unspecified; F41.9 Anxiety disorder, unspecified; Z79.899 Other long term (current) drug therapy | CPT/HCPCS: 99212 ==

== ENCOUNTER 2024-03-17 13:44 | Outpatient (REF) | payer OTHER, SELFPAY ==
--- NOTE | ~2024-03-17 | MM_ITS ---
EXAMINATION: MM SCREENING DIGITAL BREAST TOMOSYNTHESIS, BILATERAL CLINICAL INFORMATION: Screening. Asymptomatic. COMPARISON: Mammography: This study is compared with prior exams dating back to 2013. TECHNIQUE: Digital breast tomosynthesis is performed in both the craniocaudal and mediolateral oblique views along with computer-aided detection (CAD). Synthesized 2D images are generated from the tomosynthesis. FINDINGS: There are scattered areas of fibroglandular density (ACR BI-RADS breast composition Category b). There are no significant masses, abnormal calcifications, or other abnormalities. MM/MM tomosynthesis screening BI IMPRESSION: No mammographic evidence of malignancy. ASSESSMENT: BI-RADS BI-RADS 1 - Negative RECOMMENDATION: Routine annual mammography screening. 1 year F/U This examination should not preclude the clinical evaluation of a suspicious palpable abnormality. This patient's information was entered into a reminder system with a target due date for their next mammogram.
== END 2024-03-17 13:45 | disposition home or self-care (01) ==
LOC: HO.MAMMO 13:44
PROVIDERS: PCP Physician Assistant; Visit Provider Physician Assistant
DX: Z12.31 Encounter for screening mammogram for malignant neoplasm of breast (principal)
CPT/HCPCS: 77063; 77067

== ENCOUNTER → 2024-03-17 14:15 | Outpatient (BNV) | payer OTHER, SELFPAY | PROVIDERS: PCP Physician Assistant; Visit Provider Radiology Diagnostic Radiology | DX: Z12.31 Encounter for screening mammogram for malignant neoplasm of breast (principal) | CPT/HCPCS: 77063; 77067 ==

== ENCOUNTER 2024-03-18 11:09 | Outpatient (AMB) | payer OTHER, SELFPAY ==
[2024-03-18 11:18] VITALS: BMI 34.8
--- NOTE | 2024-03-18 11:18 | A.OFFVIS_ITS ---
VS Expanded 03/18/24 11:18 03/29/24 13:29 Height 5 ft 3 in 5 ft 3 in Weight 196 lb 10.437 oz 197 lb BMI 34.8 34.9 Intake Visit Reasons: absence of other parts of digestive tract Allergies baclofen Allergy (Severe, Verified 02/25/24 13:38) GI upset dexamethasone Allergy (Severe, Verified 02/25/24 13:38) Vomiting doxycycline Allergy (Severe, Verified 02/25/24 13:38) Vomiting naproxen [Aleve] Allergy (Severe, Verified 02/25/24 13:38) Vomiting penicillin V Allergy (Severe, Verified 02/25/24 13:38) vomitting Sulfa (Sulfonamide Antibiotics) Allergy (Severe, Verified 02/25/24 13:38) Vomiting ibuprofen [Advil] Allergy (Intermediate, Verified 02/25/24 13:38) Vomiting codeine [Codeine] Allergy (Mild, Verified 02/25/24 13:38) VOMITING aspirin [ASPIRIN] Adverse Reaction (Severe, Verified 02/25/24 13:38) VOMITING Nutrition Presentation Details: Pt presents for MNT for HLD. Pt was referred by Nancy Patel Pt has hx of colectomy and hx of Gi surgical hernia hx. Pt reports recently having frequent bowel movements and is interested in diet modification to reduce frequency of bowels and prevention of constipation. Pt reports eating bananas and bread all day BS Monitoring Most Recent Diabetes Results: Cholesterol 106 mg/dL (<200) 02/20/24 HDL Cholesterol 53 mg/dL (>40) 02/20/24 Triglycerides 91 mg/dL (<150) 02/20/24 Creatinine 0.61 mg/dL (0.5-1.4) 02/20/24 Blood Urea Nitrogen 18 mg/dL (9-16) H 02/20/24 Sodium 131 mmol/L (135-145) L 02/20/24 Potassium 3.2 mmol/L (3.3-5.1) L 02/20/24 Chloride 91 mmol/L (96-108) L 02/20/24 Carbon Dioxide 29 mmol/L (22-29) 02/20/24 Calcium 9.9 mg/dL (8.4-10.2) 02/20/24 AST 16 U/L (5-31) 02/20/24 ALT 17 U/L (0-31) 02/20/24 Total Protein 7.7 g/dL (6.5-8.0) 02/20/24 Albumin 4.7 g/dL (3.5-5.0) 02/20/24 PZV-Xvlnasw-Nv.Jeor Equation Height: 5 ft 3 in Weight: 197 lb Resting Metabolic Rate: 1426.77 Calculated Activity Level: Sedentary Calories Needed to Maintain Weight: 1712.12 Diagnosis Nutrition problem #1: altered nutrition labs As related to (etiology) #1: diagnosis (HLD) As evidenced by (sign/symptom) #1: knowledge deficit of diet [facility] Medical History (Updated 03/09/24 @ 13:28 by Jigar Patel PA-C) Hypokalemia Flat feet, bilateral Chronic post-traumatic stress disorder (PTSD) Screening for breast cancer Annual physical exam Pulmonary nodules Chronic respiratory failure COPD (chronic obstructive pulmonary disease) Abdominal hernia Right lumbar radiculopathy Osteopenia Surgical History (Updated 02/25/24 @ 14:39 by Jigar Patel PA-C) History of colectomy History of eye surgery History of colonoscopy History of umbilical hernia repair History of bladder surgery History of total abdominal hysterectomy and bilateral salpingo-oophorectomy History of cholecystectomy History of appendectomy History of tonsillectomy Family History Father Renal cell cancer Prostate cancer Leukemia Diabetes Hypertension Mother Hypertension Paternal Grandmother Colon cancer Maternal Grandfather Myocardial infarction Sister Lupus Daughter In good health Other Mental health disorder Social History Housing: Apartment Alcohol intake: never Patient Tobacco Use Status: Former Tobacco user Tobacco use type: Cigarette Cigarettes Per Day: 4 Years Smoked: 42 years e-Cigarette/Vaping Use: Never Used service: No Current occupational status: disabled Cognitive needs: Yes (cane/walker) Hearing needs: No Vision needs: Yes (glasses) Assessment & Plan Assessment & Plan (1) HLD (hyperlipidemia): Code(s): E78.5 - Hyperlipidemia, unspecified Category: Medical Qualifiers: Hyperlipidemia type: mixed hyperlipidemia Qualified Code(s): E78.2 - Mixed hyperlipidemia Plan: Wt: 89 Kg ( 03/29/24 ) Est kcal needs as per MSJ: 1700 (40% carb, 30% protein/fat) Est fluid needs as per 25-30 ml/d: 2700 Est prot per day as per 1 g/kg bw: 89 Recommend fiber intake : 8-10 g per day and gradually increase to 25-28 g per day for women and 35-38 g for men or as tolerated Recommend sodium intake per day : less than 2000 mg Educated patient on: ( R = reviewed V = verbalizes understanding N/R = needs review N/A = not applicable * Food sources of carbohydrate, adequate serving sizes and its role in various health conditions: R V N/R * Differences between complex carbohydrates a simple carbohydrates, role of fiber in diet: R V N/R * Lean protein sources of foods: R V NR * Differences between types of fats and role in diet (mono on saturated fat fatty acids, saturated fatty acids, trans fats): R low fat basic * Food sources of sodium in salt and healthy modifications for heart health in kidney health: R V R/V * Vitamins and minerals: R V N/R * Healthy plate method concept: R V N/R * Physical activity: Benefits a precaution: R V N/R * Patient Instructions: Include cereals as part of your diet - due to its vitamin - alternate between cheerios/rice/corn cereals Choose rice and alternate between brown rice and white rice following healthy plate method Reduce on cheese/creams/chowders keep hydrated by having water and diluting beverages with water see written nutrition education (for low cholesterol) Coding Level of Care Code Nutr Indiv Intake (52104) Diagnoses Mixed hyperlipidemia E78.2 Hyperlipidemia type: mixed hyperlipidemia Time Spent (min) 30
[2024-03-29 13:29] VITALS: BMI 34.9
== END 2024-03-18 11:52 | disposition home or self-care (01) ==
PROVIDERS: PCP Physician Assistant; Visit Provider Dietitian, Registered
DX: E78.2 Mixed hyperlipidemia (principal)

== ENCOUNTER → 2024-03-18 11:09 | Outpatient (BNVA) | payer OTHER, SELFPAY | PROVIDERS: PCP Physician Assistant; Visit Provider Dietitian, Registered | DX: E78.2 Mixed hyperlipidemia (principal) | CPT/HCPCS: 97802 ==

== ENCOUNTER 2024-04-09 10:53 | Outpatient (AMB) | payer OTHER, SELFPAY ==
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
== END 2024-04-09 13:15 | disposition home or self-care (01) ==
LOC: HO.HOP 10:53
PROVIDERS: PCP Physician Assistant; Visit Provider Clinical Nurse Specialist Psychiatric/Mental Health
DX: F31.62 Bipolar disorder, current episode mixed, moderate (principal); F41.1 Generalized anxiety disorder; R45.86 Emotional lability
CPT/HCPCS: 99215

== ENCOUNTER → 2024-04-09 10:53 | Outpatient (BNVA) | payer OTHER, SELFPAY | PROVIDERS: PCP Physician Assistant; Visit Provider Clinical Nurse Specialist Psychiatric/Mental Health | DX: F41.1 Generalized anxiety disorder (principal); F31.60 Bipolar disorder, current episode mixed, unspecified; R45.86 Emotional lability | CPT/HCPCS: 99212 ==

== ENCOUNTER 2024-04-15 09:51 | Outpatient (AMB) | payer OTHER, SELFPAY ==
[2024-04-15 10:12] VITALS: BP 92/54; PULSE 101; O2SAT 99; BMI 35.7
--- NOTE | 2024-04-15 10:12 | A.OFFPC_ITS ---
Vital Signs 04/15/24 10:12 Height 5 ft 3 in Weight 201 lb 4.513 oz BMI 35.7 BP 92/54 L Blood Pressure Location Lt brachial Position Sitting Pulse 101 H Pulse Source Pulse Oximeter Pulse Oximetry (%) 99 Oxygen Delivery Method Room Air Intake Visit Reasons: Annual Exam Intake Note: Patient is here today for a physical. Materials Recycler Required: No Accompanied by: Self / Same As Patient Allergies baclofen Allergy (Severe, Verified 04/15/24 10:42) GI upset dexamethasone Allergy (Severe, Verified 04/15/24 10:42) Vomiting doxycycline Allergy (Severe, Verified 04/15/24 10:42) Vomiting naproxen [Aleve] Allergy (Severe, Verified 04/15/24 10:42) Vomiting penicillin V Allergy (Severe, Verified 04/15/24 10:42) vomitting Sulfa (Sulfonamide Antibiotics) Allergy (Severe, Verified 04/15/24 10:42) Vomiting ibuprofen [Advil] Allergy (Intermediate, Verified 04/15/24 10:42) Vomiting codeine [Codeine] Allergy (Mild, Verified 04/15/24 10:42) VOMITING aspirin [ASPIRIN] Adverse Reaction (Severe, Verified 04/15/24 10:42) VOMITING Medication List - Last Reconciled 04/15/24 by Jigar Patel PA-C acetaminophen ER 650 mg PO Q12H albuterol sulfate 90 mcg/actuation 2 inhalations inhalation Q6H PRN 30 days apixaban (Eliquis) 5 mg PO BID 30 days brexpiprazole (Rexulti) 2 mg PO DAILY chlorhexidine gluconate 4% 1 appl topical .every other day 15 days cholecalciferol (vitamin D3) 50 mcg PO DAILY 90 days diaper,brief,adult,disposable As directed diazepam 5 mg PO BID PRN diphenoxylate-atropine 2.5-0.025 mg 0 tabs PO disposable gloves As directed duloxetine 60 mg PO DAILY esomeprazole magnesium 40 mg PO BID nnfaklvfvyv-bcfgutcvi-elnsnhpx 100-62.5-25 mcg (Trelegy Ellipta) 1 ea PO DAILY furosemide 40 mg PO BID gloves, latex with aloe vera (Aloe Vera Latex Gloves) 1 ea miscellaneous DAILY 30 days hydroxyzine HCl 100 mg (2 x 50 mg) PO BEDTIME lamotrigine (Lamictal) 25 mg PO BID 30 days levothyroxine 50 mcg PO DAILY lidocaine 5% 1 appl topical DAILY 30 days lisinopril 30 mg PO DAILY loratadine 10 mg PO DAILY 30 days lorazepam (Ativan) 1 mg PO BEDTIME PRN menthol-zinc oxide 0.44-20.6 % (Calmoseptine) 1 appl topical QID 30 days multivitamin 1 tab PO DAILY 90 days ondansetron HCl 8 mg PO QID 30 days potassium chloride ER (Klor-Con M) 20 mEq PO DAILY 30 days [right hand brace As directed] simethicone (Gas Relief (simethicone)) 125 mg PO TID PRN 30 days thiamine HCl (vitamin B1) 100 mg PO DAILY 90 days tramadol 50 mg PO BID 30 days walker (Ultra-Light Rollator misc) As directed [washable bedpads As directed] Tobacco use date assessed: 11/12/23 Dental Screening Dental Screen Date: 11/12/23 HPI Annual Exam HPI Details Patient is a 64-year-old female here today for a routine annual physical. Patient has a past medical history significant for COPD , bipolar disorder GERD hypertension, hypothyroidism, heart failure. . Ventral hernia /status post colon resection: Has had a very complicated surgical GI history. She was status post ileostomy revision and anastomosis. She has been left with large hernias that surgeons attempted to repair that was complicated by abdominal abscesses. Nonetheless she was left with chronic malabsorption type diarrhea. She reports passing watery stool 20 times per day. She needs to use loperamide and antidiarrheal prescription medications on a daily basis. She continues to rectal pain and burning due to the frequency of her bowel movements. Also has been experiencing some electrolyte deficiencies and low blood pressures likely due to volume some depletion.. She is followed by emergency communications dispatcher (Dr. Shabazz) .. Polyarthralgia: reports she worried about her degeneration in her back and upper extremity. She does have degenerative lumbar spine. She has active notable arthritic nodules in her hands and wrists. She reports taking tramadol which had significantly reduced her joint pains She also has pretty significant lumbar spine disc issues. She does use tramadol 50 mg b.i.d. at this time which has been somewhat helpful for pain though was still having breakthrough pain.. CHF: Recently diagnosed with heart failure with preserved ejection fraction, subsegmental PEs during her hospitalization. Has been started on Eliquis 5 mg b.i.d. and no overt signs of bleeding noted. She was started on furosemide 40 mg b.i.d.. She does have an upcoming appointment to establish care with a local code inspector. She did see a code inspector while in [place] and advised on starting statin therapy and re-establishing care with local cardiology. .. COPD: Has completely stopped smoking over the last few months. Continues to have some shortness of breath at times which could be related to her recent pulmonary embolism and her Congestive heart failure.. Does follow a dynamics ax consultant here in [place] \ Vaccines: Up-to-date with COVID vaccine, pneumonia vaccine, shingles vaccine Colon cancer screening: complicated GI case--> Continues to follow ( dr. 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: Hysterectomy Mammogram: Done February of 2024, awaiting results [facility] Medical History Major depressive disorder, recurrent severe without psychotic features Hypokalemia Flat feet, bilateral Chronic post-traumatic stress disorder (PTSD) Screening for breast cancer Annual physical exam Pulmonary nodules Chronic respiratory failure COPD (chronic obstructive pulmonary disease) Abdominal hernia Right lumbar radiculopathy Osteopenia Surgical History History of colectomy History of eye surgery History of colonoscopy History of umbilical hernia repair History of bladder surgery History of total abdominal hysterectomy and bilateral salpingo-oophorectomy History of cholecystectomy History of appendectomy History of tonsillectomy Family History Father Renal cell cancer Prostate cancer Leukemia Diabetes Hypertension Mother Hypertension Paternal Grandmother Colon cancer Maternal Grandfather Myocardial infarction Sister Lupus Daughter In good health Other Mental health disorder Social History Housing: Apartment Alcohol intake: never Patient Tobacco Use Status: Former Tobacco user Tobacco use type: Cigarette Cigarettes Per Day: 4 Years Smoked: 42 years e-Cigarette/Vaping Use: Never Used service: No Current occupational status: disabled Cognitive needs: Yes (cane/walker) Hearing needs: No Vision needs: Yes (glasses) Questionnaire Thrive Questionnaire Date Thrive assessed: 11/12/23 EMILY-7 AMB Questionnaire EMILY-7 Date EMILY - 7 assessed: 11/12/23 Source: Developed by Drs. Enoch Vallecillo, Anum Jung, Nathan Tiwari and colleagues, with an educational clifton from [employer]. Review of Systems Const Denies body aches, Denies chills, Denies excessive sweating, Denies fatigue, Denies fever(s) and Denies headache(s) Eyes Denies blurry vision ENT Denies dysphagia, Denies vertigo, Denies dizziness, Denies headache(s), Denies h earing loss and Denies tinnitus Card Denies chest pain, Denies chest pain with activity, Denies syncope, Denies irregular heart rhythm and Denies dyspnea Resp Denies chest congestion, Denies cough, Denies hemoptysis, Denies dyspnea and Denies wheezing GI Reports abdominal pain, Denies melena, Denies hematochezia, Reports tenesmus, Denies coffee ground emesis, Denies dysphagia, Reports fecal incontinence, Reports diarrhea, Reports loose stools, Denies nausea and Denies vomiting Denies urinary frequency, Denies dysuria, Denies urinary hesitancy and Denies urinary urgency Musc Reports back pain, Reports arthralgias, Denies limited range of motion, Denies muscle cramps and Reports muscle weakness Skin/Breast Denies rash and Denies skin ulcer Neuro Denies Abnormal speech present, Denies confusion, Denies vertigo, Denies dizziness, Denies syncope, Denies headache(s), Denies memory loss and Denies seizure-like activity Psych Denies anxiety, Denies confusion, Denies depression, Denies memory loss, Denies panic attacks and Denies paranoia Endo Denies excessive sweating, Denies fatigue, Denies flushing, Denies polydipsia and Denies polyuria Aller/Immun Denies wheezing Physical exam (Primary Care) Vital Signs: Last Vital Signs Pulse 101 H 04/15/24 10:12 BP 92/54 L 04/15/24 10:12 Pulse Ox 99 04/15/24 10:12 Oxygen Delivery Method Room Air 04/15/24 10:12 BMI result Body Mass Index 35.7 Tobacco/Smoking Status: Tobacco use Status Tobacco use date assessed 11/12/23 04/15/24 10:12 Patient Tobacco Use Status Former Tobacco user 04/15/24 10:12 Tobacco use type Cigarette 04/15/24 10:12 e-Cigarette/Vaping Use Never Used 04/15/24 10:12 Thrive Assessment: Date of Thrive Assessment Date Thrive assessed 11/12/23 04/15/24 10:12 Const General: cooperative, comfortable, no acute distress, alert and awake; No confusion Orientation/consciousness: oriented to person, oriented to place, patient oriented x3 and No confusion HENMT Head: Yes normocephalic Ears: external ears normal and TM's normal bilaterally Face and sinus: No sinus tenderness Mouth: Normal oral and palatal mucosa present and tongue normal Teeth and gingiva: dentition normal and gingiva normal Throat: Yes posterior oropharynx normal, Yes tonsils normal and Yes uvula midline Eyes Conjunctivae: conjunctivae normal Sclerae: sclerae normal Pupils: Equal, round and reactive pupils present EOM: EOMs intact bilaterally Direct Ophthalmoscopy: No no photophobia Neck Neck: Yes no lymphadenopathy, No tender and Yes no JVD Thyroid: Thyroid normal Carotids: no bruits Chest Chest palpation & inspection: no tenderness Resp Effort & Inspection: normal respiratory effort, no audible wheezes, not labored and no stridor Auscultation: no crackles, no rales, no rhonchi and no wheezes Cardio Jugular venous distension: no JVD Rate: regular rate, not bradycardic and not tachycardic Rhythm: regular rhythm Bruits: no carotid bruits Peripheral pulses: Peripheral pulses 2+ throughout GI Inspection: Yes normal to inspection, No abdominal wall ecchymosis and No visible herniation Palpation (GI): Soft to palpation, nontender, no guarding, not rigid and No hepatosplenomegaly present Auscultation: normoactive bowel sounds General: Yes no CVA tenderness Back/Spine/Pelvis Back: no CVA tenderness and No back tenderness Cervical Spine: cervical ROM normal Thoracic/Lumbar Spine: thoracic and lumbar spine normal to inspection, straight leg raise negative bilaterally, No thoraco-lumbar ROM limited and No lumbar spinal tenderness Skin Lesions: no lesions Rashes: no rashes Wounds: no wounds Neuro General: oriented to person, oriented to place, patient oriented x3, CN's II-XI intact bilaterally and No confusion Cranial nerves: Yes Equal, round and reactive pupils present and Yes Normal accommodation reflex present Cognition (Neuro): normal cognition Speech: No Abnormal speech present Gait exam (Neuro): Normal gait present Motor exam (neuro): 5/5 motor strength present throughout Extrem Right upper extremity: full ROM; no cyanosis Left upper extremity: full ROM; no cyanosis Right lower extremity: no edema Left lower extremity: no edema Psych Appearance: grossly normal Mental Status: mental status grossly normal Affect: normal affect Attitude: cooperative Thought process: Normal thought process present Assessment and Plan Assessment & Plan (1) Annual physical exam: Code(s): Z00.00 - Encounter for general adult medical examination without abnormal findings (2) Frequent loose stools: Code(s): R19.7 - Diarrhea, unspecified Qualifiers: Diarrhea type: due to malabsorption Qualified Code(s): K90.9 - Intestinal malabsorption, unspecified; R19.7 - Diarrhea, unspecified Plan: Secondary to her extensive GI history and surgeries. She is status post ileostomy (3) Rectal burning: Code(s): R20.8 - Other disturbances of skin sensation Plan: Continues to have rectal burning due to the frequency of her bowel movements. She is dependent on loperamide and antidiarrheal prescription medication. Also uses topical creams and lidocaine topical cream to her symptoms. She is spoken with her emergency communications dispatcher whom is considering placing her back on an ileostomy bag (4) CHF (congestive heart failure), NYHA class III: Code(s): I50.9 - Heart failure, unspecified Qualifiers: Congestive heart failure chronicity: chronic Congestive heart failure type: systolic Qualified Code(s): I50.22 - Chronic systolic (congestive) heart failure Plan: Seems to have had decompensated heart failure during her recent hospitalization for her abdominal surgery. She had lower extremity edema and furosemide dose was increased to 40 mg b.i.d.. She was evaluated by code inspector while in [place] Does have upcoming appointment to establish care with a local code inspector. Today in office her congestive heart failure seems to be well compensated (5) Pulmonary embolism: Comment: September of 2023 Code(s): I26.99 - Other pulmonary embolism without acute cor pulmonale Qualifiers: Acute cor pulmonale presence: without acute cor pulmonale Chronicity: acute Pulmonary embolism type: unspecified Qualified Code(s): I26.99 - Other pulmonary embolism without acute cor pulmonale Plan: Did have segmental pulmonary embolism during her hospitalization after her recent hernia surgery. Has been placed on Eliquis for ? Six months. (6) HLD (hyperlipidemia): Code(s): E78.5 - Hyperlipidemia, unspecified Qualifiers: Hyperlipidemia type: mixed hyperlipidemia Qualified Code(s): E78.2 - Mixed hyperlipidemia Plan: Patient does have a history of hyperlipidemia. She was to start cholesterol medication in the past though due to her dietary restrictions and GI issues we have not started cholesterol medication. (7) S/P hernia surgery: Code(s): Z98.890 - Other specified postprocedural states; Z87.19 - Personal history of other diseases of the digestive system Plan: As above (8) Degenerative lumbar spinal stenosis: Code(s): M48.061 - Spinal stenosis, lumbar region without neurogenic claudication Plan: Continues to complain of lower lumbar spine pain. Again offered her physical therapy and pain management referral though she declines stating she is already try this. She is interested in medication to help her be more physically active and walk better. She does use a walker for ambulatory assistance. We did have long discussion and agreed upon tramadol 50 mg to use on a 3 times a day as needed basis. (9) COPD (chronic obstructive pulmonary disease): Code(s): J44.9 - Chronic obstructive pulmonary disease, unspecified Qualifiers: COPD type: emphysema Emphysema type: centrilobular Qualified Code(s): J43.2 - Centrilobular emphysema Plan: As above patient was a former smoker. She reports completely quitting smoking before her hernia surgeries. Continues to have some shortness of breath especially on exertion. Of note does have segmental PEs perioperatively in September 2023. Also does have Congestive heart failure though seems to be well compensated at this time. (10) Chronic post-traumatic stress disorder (PTSD): Code(s): F43.12 - Post-traumatic stress disorder, chronic Plan: She continues to suffer with PTSD symptoms and major depressive disorder. She does speak with a mental health therapist and a psychiatrist and will be working with them to manage her mental health issues. Orders: Orders Comprehensive [place]. Panel Fast 04/15/24 I10 - Essential (primary) hypertension Complete Blood Count no Diff 04/15/24 I10 - Essential (primary) hypertension TSH reflex Free T4 04/15/24 E03.9 - Hypothyroidism, unspecified Medications: New loperamide 2 mg PO TID 270 tabs 1RF 90 days K90.9 - Intestinal malabsorption, unspecified, R19.7 - Diarrhea, unspecified chair, wheel (Wheel chair) As directed 1 ea 0RF M54.16 - Radiculopathy, lumbar region [facility] bath [facility]) As directed 1 ea 0RF R15.9 - Full incontinence of feces, R20.8 - Other disturbances of skin sensation Changed From tramadol 50 mg PO BID 30 days 60 tabs 3RF pain M48.061 - Spinal stenosis, lumbar region without neurogenic claudication To tramadol 50 mg PO Q8H 90 tabs 3RF pain 30 days M48.061 - Spinal stenosis, lumbar region without neurogenic claudication Resumed acetaminophen ER 650 mg PO Q12H 56 tabs 3RF M19.90 - Unspecified osteoarthritis, unspecified site, M54.16 - Radiculopathy, lumbar region Coding Level of Care Code Est Pt Prev Care 40-64y(64472) Diagnoses Annual physical exam Z00.00 Diarrhea due to malabsorption K90.9; R19.7 Diarrhea type: due to malabsorption Rectal burning R20.8 Chronic systolic congestive heart failure, NYHA class 3 I50.22 Congestive heart failure chronicity: chronic Congestive heart failure type: systolic Acute pulmonary embolism without acute cor pulmonale, unspecified pulmonary embolism type I26.99 Acute cor pulmonale presence: without acute cor pulmonale Chronicity: acute Pulmonary embolism type: unspecified Mixed hyperlipidemia E78.2 Hyperlipidemia type: mixed hyperlipidemia S/P hernia surgery Z98.890; Z87.19 Degenerative lumbar spinal stenosis M48.061 Centrilobular emphysema J43.2 COPD type: emphysema Emphysema type: centrilobular Chronic post-traumatic stress disorder (PTSD) F43.12
== END 2024-04-15 11:20 | disposition home or self-care (01) ==
PROVIDERS: PCP Physician Assistant; Visit Provider Physician Assistant
DX: Z00.00 Encounter for general adult medical examination without abnormal findings (principal); I50.22 Chronic systolic (congestive) heart failure; I26.99 Other pulmonary embolism without acute cor pulmonale; J43.2 Centrilobular emphysema; K90.9 Intestinal malabsorption, unspecified; R19.7 Diarrhea, unspecified; R20.8 Other disturbances of skin sensation; E78.2 Mixed hyperlipidemia; Z98.890 Other specified postprocedural states; Z87.19 Personal history of other diseases of the digestive system; M48.061 Spinal stenosis, lumbar region without neurogenic claudication; F43.12 Post-traumatic stress disorder, chronic
CPT/HCPCS: 99396

== ENCOUNTER 2024-04-28 10:48 | Outpatient (AMB) | payer OTHER, SELFPAY ==
[2024-04-28 10:55] VITALS: BP 124/82; PULSE 99; BMI 36.3
--- NOTE | 2024-04-28 10:55 | MHC.OFFVIS ---
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 Pt states has edema. Equal Opportunity Specialist Required: No Footwear Machinery Instructor: Footwear Machinery Instructor Present (Lillian Johnson/ STEPHY) Accompanied by: Other Relationship Allergies baclofen Allergy (Severe, Verified 04/15/24 10:42) GI upset dexamethasone Allergy (Severe, Verified 04/15/24 10:42) Vomiting doxycycline Allergy (Severe, Verified 04/15/24 10:42) Vomiting naproxen [Aleve] Allergy (Severe, Verified 04/15/24 10:42) Vomiting penicillin V Allergy (Severe, Verified 04/15/24 10:42) vomitting Sulfa (Sulfonamide Antibiotics) Allergy (Severe, Verified 04/15/24 10:42) Vomiting ibuprofen [Advil] Allergy (Intermediate, Verified 04/15/24 10:42) Vomiting codeine [Codeine] Allergy (Mild, Verified 04/15/24 10:42) VOMITING aspirin [ASPIRIN] Adverse Reaction (Severe, Verified 04/15/24 10:42) VOMITING Medication List - Last Reconciled 04/28/24 by Tyler Abernathy MD acetaminophen ER 650 mg PO Q12H albuterol sulfate 90 mcg/actuation 2 inhalations inhalation Q6H PRN 30 days apixaban (Eliquis) 5 mg PO BID 30 days chair, wheel (Wheel chair) As directed cholecalciferol (vitamin D3) 50 mcg PO DAILY 90 days diaper,brief,adult,disposable As directed size large diazepam 5 mg PO BID PRN diphenoxylate-atropine 2.5-0.025 mg 6 tabs orally daily; disposable gloves As directed duloxetine 60 mg PO DAILY esomeprazole magnesium 40 mg PO BID bvkdnjclgas-ibmqiejwa-vdjaezwe 100-62.5-25 mcg (Trelegy Ellipta) 1 ea PO DAILY furosemide 40 mg PO BID gloves, latex with aloe vera (Aloe Vera Latex Gloves) 1 ea miscellaneous DAILY 30 days [hand held shawer spray As directed] hydroxyzine HCl 100 mg (2 x 50 mg) PO BEDTIME lamotrigine (Lamictal) 25 mg PO BID 30 days levothyroxine 50 mcg PO DAILY lidocaine 5% 1 appl topical DAILY 30 days lisinopril 30 mg PO DAILY loperamide 2 mg PO TID 90 days loratadine 10 mg PO DAILY 30 days menthol-zinc oxide 0.44-20.6 % (Calmoseptine) 1 appl topical QID 30 days multivitamin 1 tab PO DAILY 90 days ondansetron HCl 8 mg PO QID 30 days potassium chloride ER (Klor-Con M) 20 mEq PO DAILY 30 days [pull ups As directed] [right hand brace As directed] simethicone (Gas Relief (simethicone)) 125 mg PO TID PRN 30 days sitz bath ([employer] Sitz Bath) As directed thiamine HCl (vitamin B1) 100 mg PO DAILY 90 days tramadol 50 mg PO Q8H 30 days walker (Ultra-Light Rollator misc) As directed [washable bedpads As directed] HPI Comments Details: Yu was referred here for management of cardiovascular disease. Although a past cardiovascular history is very difficult to obtain. She says most of this history and diagnosis took place in [place] at [facility]. We do have some discharge from bring in but no actual cardiac workup. She says she has been admitted multiple times in [place] due to her abdominal condition. She has had total of 22 abdominal surgeries in the past and has been told that she has not a candidate for anymore surgeries. She also has history of anxiety with PTSD and bipolar disorder. Patient is on Lasix 40 mg b.i.d.. She continues to have symptoms of exertional shortness of breath as well as shortness of breath at nighttime. She has prior history of COPD being followed by Pulmonary and has been prescribed oxygen for chronic respiratory failure and uses oxygen at nighttime sometimes uses up to 5 L a minute. She also has history of obstructive sleep apnea but can not tolerate CPAP does not use it but uses oxygen instead. Do not have any echocardiogram or stress testing in our hospital system. He she says she has had workup done at [facility] regards to that. Will try to obtain the same. She is limited in activity level. Unfortunately issue she has restarted smoking again recently. She is very worried about her heart disease as she says she has strong family history on the maternal side of premature coronary artery disease. She herself does not recall ever been told that she has had myocardial infarction. She denies any coronary artery disease events in the past. She was diagnose with heart failure but she does not recall any details as mentioned she is currently on diuretic therapy. She also currently on full oral anticoagulation with Eliquis because of a pulmonary embolism. [facility] Medical History Major depressive disorder, recurrent severe without psychotic features Hypokalemia Flat feet, bilateral Chronic post-traumatic stress disorder (PTSD) Screening for breast cancer Annual physical exam Pulmonary nodules Chronic respiratory failure COPD (chronic obstructive pulmonary disease) Abdominal hernia Right lumbar radiculopathy Osteopenia Surgical History H/O hernia repair History of colectomy History of eye surgery History of colonoscopy History of umbilical hernia repair History of bladder surgery History of total abdominal hysterectomy and bilateral salpingo-oophorectomy History of cholecystectomy History of appendectomy History of tonsillectomy Family History Father Renal cell cancer Prostate cancer Leukemia Diabetes Hypertension Mother Hypertension Paternal Grandmother Colon cancer Maternal Grandfather Myocardial infarction Sister Lupus Daughter In good health Other Mental health disorder Social History Housing: Apartment Alcohol intake: never Patient Tobacco Use Status: Former Tobacco user Tobacco use type: Cigarette Cigarettes Per Day: 4 Years Smoked: 42 years e-Cigarette/Vaping Use: Never Used service: No Current occupational status: disabled Cognitive needs: Yes (cane/walker) Hearing needs: No Vision needs: Yes (glasses) Review of Systems Const Denies chills, Denies daytime sleepiness, Denies fatigue, Denies fever(s), Denies lethargy, Denies snoring, Denies stops breathing during sleep, Denies weight gain, Denies weight loss and Denies other Eyes Denies loss of vision ENT Reports hearing loss Card Denies chest pain, Denies irregular heart rhythm, Denies claudication, Reports leg edema, Denies lightheadedness, Denies palpitations, Denies dyspnea, Denies dyspnea on exertion, Denies orthopnea and Reports other Resp Denies cough, Denies excessive phlegm production, Denies dyspnea, Denies dyspnea on exertion and Denies snoring GI Denies abdominal pain, Denies hematochezia, Denies change in bowel habits, Denies nausea and Denies vomiting Denies dysuria Musc Denies arthralgias, Denies muscle weakness and Denies numbness Skin/Breast Reports as per HPI, Denies nail changes and Denies rash Neuro Denies loss of vision, Denies memory loss and Denies numbness Psych Reports anxiety, Denies depression and Denies memory loss Endo Denies fatigue and Denies palpitations Patrick/Lymph Denies easy bruising Physical Exam Vital Signs: Last Vital Signs Pulse 99 04/28/24 10:55 BP 124/82 04/28/24 10:55 BMI result Body Mass Index 36.3 Const General: cooperative, comfortable, alert and awake Nutritional Appearance: obese Orientation/consciousness: patient oriented x3 Limitations: ambulation with walker HEENT Head: Yes normocephalic and Yes atraumatic Neck Neck: Yes trachea midline, Yes supple and Yes no JVD Resp Effort & Inspection: normal respiratory effort Auscultation: no rales, no wheezes and diminished lung sounds Cardio Jugular venous distension: no JVD Rate: regular rate Rhythm: regular rhythm Heart sounds: S1 normal heart sound present, S2 normal heart sound present, no click, no gallops, no murmurs and no rubs GI Auscultation: normal bowel sounds Skin General skin exam: no rashes or lesions noted and ecchymosis Neuro General: patient oriented x3 and no focal motor deficits Extrem General: Yes no clubbing, cyanosis or edema Psych Appearance: grossly normal Office Procedures EKG Details: EKG shows normal sinus rhythm with normal EKG 75908-[id number], Complete Quality Reporting (2019) Adult ([facility] 138/12/18/68) Smoking risk assessment performed?: Yes Patient Tobacco Use Status: Former Tobacco user Assessment & Plan Assessment & Plan (1) Congestive heart failure: Code(s): I50.9 - Heart failure, unspecified Category: Medical Plan: Patient with prior history she says of congestive heart failure. Although I do not have any records suggestive of the same. She definitely does not have any signs of fluid overload or decompensated congestive heart failure on today's exam. Will check BMP and BNP. Will try to obtain old workup from [facility] to further assess for them. Is possible that heart failure syndrome has resolved on diuretic therapy. Will continue the same in absence of any other clinical diagnosis and is helping her volume status. She is at risk for development of heart failure given her COPD, hypertension, untreated sleep apnea, obesity. He is encouraged to increase activity level. Continue aggressive management of her COPD. Advised to maintain oxygen use at all times when it is needed. Also advised strongly to pursue CPAP therapy. I would like to pursue if any ischemic workup was done in the past given her multiple risk factors. If she has had within last year no further workup is indicated if not I would suggest a vasodilating myocardial perfusion imaging given his symptoms of exertional shortness of breath. I would repeat another echocardiogram to evaluate LV systolic and diastolic function as well as RV size and function and pulmonary hypertension. Complete smoking cessation was advised. Continue aggressive control blood pressure. Will follow up in the clinic in 1 year's time. Orders: Orders CA echo transthoracic complete Today I50.9 - Heart failure, unspecified B Type Natriuretic Peptide Today I50.9 - Heart failure, unspecified Basic Metabolic Panel Today I50.9 - Heart failure, unspecified Coding Level of Care Code New Pt Level 4 (75210) Diagnoses Congestive heart failure I50.9 CPT Codes EKG - CPT: 36087-[id number], Complete ([id number])
== END 2024-04-28 11:52 | disposition home or self-care (01) ==
PROVIDERS: PCP Physician Assistant; Visit Provider Internal Medicine Cardiovascular Disease
DX: I50.9 Heart failure, unspecified (principal)
CPT/HCPCS: 93010; 99214

== ENCOUNTER → 2024-04-28 10:48 | Outpatient (BNVA) | payer OTHER, SELFPAY | PROVIDERS: PCP Physician Assistant; Visit Provider Internal Medicine Cardiovascular Disease | DX: I50.9 Heart failure, unspecified (principal); I26.99 Other pulmonary embolism without acute cor pulmonale; J44.9 Chronic obstructive pulmonary disease, unspecified; Z79.01 Long term (current) use of anticoagulants; Z99.81 Dependence on supplemental oxygen | CPT/HCPCS: 93005; 99212 ==

== ENCOUNTER 2024-05-03 11:26 | Outpatient (AMB) | payer OTHER, SELFPAY ==
[2024-05-03 11:37] VITALS: BMI 37.0
--- NOTE | 2024-05-03 11:37 | A.OFFVIS_ITS ---
VS Expanded 05/03/24 11:37 Height 5 ft 3 in Weight 208 lb 12.444 oz BMI 37.0 Intake Visit Reasons: HDL/CONFIRMED Allergies baclofen Allergy (Severe, Verified 04/15/24 10:42) GI upset dexamethasone Allergy (Severe, Verified 04/15/24 10:42) Vomiting doxycycline Allergy (Severe, Verified 04/15/24 10:42) Vomiting naproxen [Aleve] Allergy (Severe, Verified 04/15/24 10:42) Vomiting penicillin V Allergy (Severe, Verified 04/15/24 10:42) vomitting Sulfa (Sulfonamide Antibiotics) Allergy (Severe, Verified 04/15/24 10:42) Vomiting ibuprofen [Advil] Allergy (Intermediate, Verified 04/15/24 10:42) Vomiting codeine [Codeine] Allergy (Mild, Verified 04/15/24 10:42) VOMITING aspirin [ASPIRIN] Adverse Reaction (Severe, Verified 04/15/24 10:42) VOMITING Nutrition Presentation Details: Pt presents for MNT for HDL Pt reports diarrhea symptoms are controlled. Pt reports increasing in sugary beverages to keep hydrated. BS Monitoring Most Recent Diabetes Results: No Data to Display [facility] Medical History Major depressive disorder, recurrent severe without psychotic features Hypokalemia Flat feet, bilateral Chronic post-traumatic stress disorder (PTSD) Screening for breast cancer Annual physical exam Pulmonary nodules Chronic respiratory failure COPD (chronic obstructive pulmonary disease) Abdominal hernia Right lumbar radiculopathy Osteopenia Surgical History H/O hernia repair History of colectomy History of eye surgery History of colonoscopy History of umbilical hernia repair History of bladder surgery History of total abdominal hysterectomy and bilateral salpingo-oophorectomy History of cholecystectomy History of appendectomy History of tonsillectomy Family History Father Renal cell cancer Prostate cancer Leukemia Diabetes Hypertension Mother Hypertension Paternal Grandmother Colon cancer Maternal Grandfather Myocardial infarction Sister Lupus Daughter In good health Other Mental health disorder Social History Housing: Apartment Alcohol intake: never Patient Tobacco Use Status: Former Tobacco user Tobacco use type: Cigarette Cigarettes Per Day: 4 Years Smoked: 42 years e-Cigarette/Vaping Use: Never Used service: No Current occupational status: disabled Cognitive needs: Yes (cane/walker) Hearing needs: No Vision needs: Yes (glasses) Assessment & Plan Assessment & Plan (1) HLD (hyperlipidemia): Code(s): E78.5 - Hyperlipidemia, unspecified Category: Medical Qualifiers: Hyperlipidemia type: mixed hyperlipidemia Qualified Code(s): E78.2 - Mixed hyperlipidemia Plan: Wt: 89 Kg ( 03/29/24 ), 95kg (04/2024)!! - Pt reports diarrhea symptoms are controlled and increasing on sugary beverages Est kcal needs as per MSJ: 1700 (40% carb, 30% protein/fat) Est fluid needs as per 25-30 ml/d: 2700 Est prot per day as per 1 g/kg bw: 89 Recommend fiber intake : 8-10 g per day and gradually increase to 25-28 g per day for women and 35-38 g for men or as tolerated Recommend sodium intake per day : less than 2000 mg Educated patient on: ( R = reviewed V = verbalizes understanding N/R = needs review N/A = not applicable * Food sources of carbohydrate, adequate serving sizes and its role in various health conditions: R V N/R * Differences between complex carbohydrates a simple carbohydrates, role of fiber in diet: R V N/R * Lean protein sources of foods: R V NR * Differences between types of fats and role in diet (mono on saturated fat fatty acids, saturated fatty acids, trans fats): R low fat basic * Food sources of sodium in salt and healthy modifications for heart health in kidney health: R V R/V * Vitamins and minerals: R V N/R * Healthy plate method concept: R V N/R * Physical activity: Benefits a precaution: R V N/R * Patient Instructions: * Reduce portions of sugary beverages and dlute with water * Reduce on amount of fat added to the foods (maurice/oils/fried foods) Coding Level of Care Code Nutr Indiv Subseq (32618) Diagnoses Mixed hyperlipidemia E78.2 Hyperlipidemia type: mixed hyperlipidemia Time Spent (min) 20
== END 2024-05-03 11:55 | disposition home or self-care (01) ==
PROVIDERS: PCP Physician Assistant; Visit Provider Dietitian, Registered
DX: E78.2 Mixed hyperlipidemia (principal)

== ENCOUNTER → 2024-05-03 11:26 | Outpatient (BNVA) | payer OTHER, SELFPAY | PROVIDERS: PCP Physician Assistant; Visit Provider Dietitian, Registered | DX: E78.2 Mixed hyperlipidemia (principal); Z71.3 Dietary counseling and surveillance | CPT/HCPCS: 97803 ==

== ENCOUNTER 2024-05-13 10:39 | Outpatient (REF) | payer OTHER, SELFPAY ==
[2024-05-13 12:06] LABS: Anion Gap 18 (12-20); Blood Urea Nitrogen 13 mg/dL (9-16); Calcium 9.6 mg/dL (8.4-10.2); Carbon Dioxide 22 mmol/L (22-29); Chloride 93 mmol/L (96-108); Estimated Glomerular Filt Rate > 60; Glucose Random 85 mg/dL (60-115); Sodium 129 mmol/L (135-145)
[2024-05-13 12:09] LABS: B Type Natriuretic Peptide 61 pg/mL (<100)
== END 2024-05-13 10:40 | disposition home or self-care (01) ==
LOC: HO.LAB 10:39
PROVIDERS: PCP Physician Assistant; Visit Provider Internal Medicine Cardiovascular Disease
DX: F31.60 Bipolar disorder, current episode mixed, unspecified (principal); F43.12 Post-traumatic stress disorder, chronic; Z79.899 Other long term (current) drug therapy; I50.9 Heart failure, unspecified
CPT/HCPCS: 36415; 80048; 83880; 99212

== ENCOUNTER 2024-05-13 11:13 | Outpatient (AMB) | payer OTHER, SELFPAY ==
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
== END 2024-05-13 11:42 | disposition home or self-care (01) ==
LOC: HO.HOP 11:13
PROVIDERS: PCP Physician Assistant; Visit Provider Clinical Nurse Specialist Psychiatric/Mental Health
DX: F31.60 Bipolar disorder, current episode mixed, unspecified (principal); F43.12 Post-traumatic stress disorder, chronic
CPT/HCPCS: 99215

== ENCOUNTER → 2024-05-21 10:07 | Outpatient (REF) | payer OTHER, SELFPAY ==
--- NOTE | 2024-05-21 10:10 | CA_ITS ---
Transthoracic Echocardiogram Patient (Last, First, Middle): Yu Morgan G Gender: Female Date of : 1960 Age: 64 Procedure Date: 05/21/2024 Procedure Type: Transthoracic Echocardiogram Location: OP Height: 160. 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 The calculated ejection fraction is 58% by biplane method. - No obvious valvular pathology seen on this study. Findings Left Ventricle Normal left ventricular cavity size. The left ventricular systolic function is normal. The calculated ejection fraction is 58% by biplane method. There is no evidence of regional wall motion abnormalities. Evidence suggests grade I (mild) diastolic dysfunction. There is mild septal asymmetric hypertrophy. Right Ventricle Normal right ventricular cavity size and systolic function. Atria Both atria are normal in size. Aortic Valve There is a normal trileaflet aortic valve. There is no aortic valve stenosis. There is no aortic valve regurgitation. Mitral Valve The mitral valve appears normal. There is trace mitral valve regurgitation. There is no mitral valve stenosis. Pulmonic Valve The pulmonic valve is likely normal. Tricuspid Valve Normal tricuspid valve structure. There is mild tricuspid valve regurgitation. There is no evidence of pulmonary hypertension. Great Vessels The asc aorta and aortic arch are normal in size. Venous The inferior vena cava is normal in size and collapses greater than 50% with inspiration. Pericardium/Pleural There is no evidence of pericardial effusion. Prior Study Comparison No significant change compared to prior study dated: 03/04/2019. Recommendations, Care & Conclusions No obvious valvular pathology seen on this study. Measurements 2D Linear Measurements IVSd: 1.16 0.6-0.9/0.6-1.0 cm LVIDd: 3.70 3.9-5.3/4.2-5.9 cm LVIDd Index: 1.88 2.4-3.2/2.2-3.1 cm/m2 LVIDs: 2.14 2.0-3.6 cm LVPWd: 0.99 0.7-1.1 cm Ao Root: 2.90 2.1-3.5 cm LA Diam: 3.80 2.7-3.8/3.0-4.0 cm LAIDs Index: 1.93 1.5-2.3 cm/m2 LV Mass: 155.74 67-162/88-224 g LV Mass Index: 79.06 43-95/49-115 g/m2 LVOT Diam: 2.10 3.0+(-)1.3 cm 2D Systolic Function EF 4C: 57.20 >55% EF 2C: 58.20 >55% EF BiP: 58.20 >55% Mitral Valve MV Pk E: 0.58 MV PK A: 0.72 MV Decel Time: 248.00 E/A: 0.80 E'Lateral: 6.42 E'Medial: 4.57 E/E' Med: 12.60 E/E' Lat: 9.00 PHT: 73.00 MVA PHT: 3.01 Decel Stevens: 2.33 Aortic Valve AoV Pk Kodak: 1.59 AoV Mn Kodak: 1.09 AoV VTI: 0.32 AoV Pk Grad: 10.00 Aov Mn Grad: 5.00 LEEANNE Cont.VTI: 2.66 LVOT LVOT Pk Kodak: 1.23 LVOT Mn Kodak: 0.82 LVOT VTI: 0.25 LVOT Pk Grad: 6.00 LVOT Mn Grad: 3.00 LVOT Diam: 2.10 LVOT Area: 3.46 Diastolic Function MV Pk E: 0.58 MV Pk A: 0.72 E/A: 0.80 E'Medial: 4.57 E/E' Med: 12.60 E' Laterial: 6.42 E/E' Lat: 9.00 Right Ventricle TAPSE (mm): 22.20 TVS' Kodak: 12.40 Tricuspid Valve TR Pk Kodak: 2.35 TR Pk Grad: 22.00 RA Press: 3.00 RVSP: 25.00 Great Vessels Aorta Ao Root-2D: 2.90 2.0-3.7 cm Ao Asc: 3.00 2.1-3.4 cm Ao Arch: 2.80 Updated in Other Vendor System with Status of Final Kenneth Damico MD electronically signed on 05/23/2024 10:50:04 AM with status of Final
== END ==
LOC: HO.CARD 10:07
PROVIDERS: PCP Physician Assistant; Visit Provider Internal Medicine Cardiovascular Disease
DX: I50.9 Heart failure, unspecified (principal)
CPT/HCPCS: 93306

== ENCOUNTER → 2024-05-21 10:10 | Outpatient (BNV) | payer OTHER, SELFPAY | PROVIDERS: PCP Physician Assistant; Visit Provider Internal Medicine | DX: I36.1 Nonrheumatic tricuspid (valve) insufficiency (principal); I42.2 Other hypertrophic cardiomyopathy; I51.89 Other ill-defined heart diseases | CPT/HCPCS: 93306 ==

== ENCOUNTER 2024-05-25 15:54 | Outpatient (AMB) | payer OTHER, SELFPAY ==
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
== END 2024-05-25 15:55 | disposition home or self-care (01) ==
LOC: HO.HOP 15:54
PROVIDERS: PCP Physician Assistant; Visit Provider Clinical Nurse Specialist Psychiatric/Mental Health
DX: F31.60 Bipolar disorder, current episode mixed, unspecified (principal); F43.12 Post-traumatic stress disorder, chronic; G47.9 Sleep disorder, unspecified
CPT/HCPCS: 99214

== ENCOUNTER → 2024-05-25 15:54 | Outpatient (BNVA) | payer OTHER, SELFPAY | PROVIDERS: PCP Physician Assistant; Visit Provider Clinical Nurse Specialist Psychiatric/Mental Health | DX: F31.60 Bipolar disorder, current episode mixed, unspecified (principal); F43.12 Post-traumatic stress disorder, chronic; G47.9 Sleep disorder, unspecified | CPT/HCPCS: 99212 ==

== ENCOUNTER 2024-06-08 10:18 | Outpatient (AMB) | payer OTHER, SELFPAY ==
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
== END 2024-06-08 13:13 | disposition home or self-care (01) ==
LOC: HO.HOP 10:18
PROVIDERS: PCP Physician Assistant; Visit Provider Clinical Nurse Specialist Psychiatric/Mental Health
DX: F31.60 Bipolar disorder, current episode mixed, unspecified (principal); F43.12 Post-traumatic stress disorder, chronic; F41.1 Generalized anxiety disorder; F41.0 Panic disorder [episodic paroxysmal anxiety]
CPT/HCPCS: 90833; 99214

== ENCOUNTER → 2024-06-08 10:18 | Outpatient (BNVA) | payer OTHER, SELFPAY | PROVIDERS: PCP Physician Assistant; Visit Provider Clinical Nurse Specialist Psychiatric/Mental Health | DX: F31.60 Bipolar disorder, current episode mixed, unspecified (principal); F43.12 Post-traumatic stress disorder, chronic; F41.1 Generalized anxiety disorder; F41.0 Panic disorder [episodic paroxysmal anxiety] | CPT/HCPCS: 99212 ==

== ENCOUNTER 2024-06-09 09:21 | Outpatient (AMB) | payer OTHER, SELFPAY ==
--- NOTE | 2024-06-09 09:38 | MHC.PC.OV ---
Vital Signs 06/09/24 09:39 Height 5 ft 3 in BMI Reason not done Patient refused/unable BP 118/78 Blood Pressure Location Lt brachial Position Sitting Pulse 84 Pulse Source Pulse Oximeter Pulse Oximetry (%) 97 Oxygen Delivery Method Room Air Intake Visit Reasons: wrist pain right (pain for a week) Intake Note: pt c/o correction right arm pain, wrist pain and hand pain with no relief. Hogshead Roller Required: No Allergies baclofen Allergy (Severe, Verified 06/09/24 10:24) GI upset dexamethasone Allergy (Severe, Verified 06/09/24 10:24) Vomiting doxycycline Allergy (Severe, Verified 06/09/24 10:24) Vomiting naproxen [Aleve] Allergy (Severe, Verified 06/09/24 10:24) Vomiting penicillin V Allergy (Severe, Verified 06/09/24 10:24) vomitting Sulfa (Sulfonamide Antibiotics) Allergy (Severe, Verified 06/09/24 10:24) Vomiting ibuprofen [Advil] Allergy (Intermediate, Verified 06/09/24 10:24) Vomiting codeine [Codeine] Allergy (Mild, Verified 06/09/24 10:24) VOMITING aspirin [ASPIRIN] Adverse Reaction (Severe, Verified 06/09/24 10:24) VOMITING Medication List - Last Reconciled 06/09/24 by Gonzalez Doe MD albuterol sulfate 90 mcg/actuation 2 inhalations inhalation Q6H PRN 30 days apixaban (Eliquis) 5 mg PO BID 30 days cariprazine 3 mg PO DAILY chair, wheel (Wheel chair) As directed cholecalciferol (vitamin D3) 50 mcg PO DAILY 90 days clonidine HCl 0.1 mg PO BID PRN diaper,brief,adult,disposable As directed size large diazepam (Valium) 5 mg PO BEDTIME PRN diphenoxylate-atropine 2.5-0.025 mg 6 tabs orally daily; disposable gloves As directed esomeprazole magnesium 40 mg PO BID edywxrzwtaa-jnxkqaakr-roserdya 100-62.5-25 mcg (Trelegy Ellipta) 1 ea PO DAILY furosemide 40 mg PO BID gloves, latex with aloe vera (Aloe Vera Latex Gloves) 1 ea miscellaneous DAILY 30 days [hand held shawer spray As directed] lamotrigine (Lamictal) 100 mg PO DAILY levothyroxine 50 mcg PO DAILY lidocaine 5% 1 appl topical DAILY 30 days lisinopril 30 mg PO DAILY loperamide 2 mg PO TID 90 days loratadine 10 mg PO DAILY 30 days menthol-zinc oxide 0.44-20.6 % (Calmoseptine) 1 appl topical QID 30 days multivitamin 1 tab PO DAILY 90 days ondansetron HCl 8 mg PO QID 30 days potassium chloride ER (Klor-Con M) 20 mEq PO DAILY 30 days [pull ups As directed] [right hand brace As directed] simethicone (Gas Relief (simethicone)) 125 mg PO TID PRN 30 days sitz bath ([employer] Sitz Bath) As directed thiamine HCl (vitamin B1) 100 mg PO DAILY 90 days tramadol 50 mg PO Q8H 30 days trazodone 50 mg PO BEDTIME walker (Ultra-Light Rollator misc) As directed [washable bedpads As directed] Tobacco use date assessed: 11/12/23 Dental Screening Dental Screen Date: 11/12/23 HPI wrist pain right (pain for a week) HPI Details 64-year-old female presents to the office for a sick visit. Patient comes to the office alone using a walker to ambulate. Complaining of pain and swelling in the right wrist for a few months. No history of prior fall or injury. Patient had visited the walk-in last year with similar complaints. X-rays of the wrist at shown [facility]. A wrist brace was provided. Patient reports that she no longer wears a wrist brace and does not know where it is. She is requesting medications for the pain. Patient reports she is allergic to NSAIDs and would like a script of opiates. [facility] Medical History Major depressive disorder, recurrent severe without psychotic features Hypokalemia Flat feet, bilateral Chronic post-traumatic stress disorder (PTSD) Screening for breast cancer Annual physical exam Pulmonary nodules Chronic respiratory failure COPD (chronic obstructive pulmonary disease) Abdominal hernia Right lumbar radiculopathy Osteopenia Surgical History H/O hernia repair History of colectomy History of eye surgery History of colonoscopy History of umbilical hernia repair History of bladder surgery History of total abdominal hysterectomy and bilateral salpingo-oophorectomy History of cholecystectomy History of appendectomy History of tonsillectomy Family History Father Renal cell cancer Prostate cancer Leukemia Diabetes Hypertension Mother Hypertension Paternal Grandmother Colon cancer Maternal Grandfather Myocardial infarction Sister Lupus Daughter In good health Other Mental health disorder Social History Housing: Apartment Alcohol intake: never Patient Tobacco Use Status: Former Tobacco user Tobacco use type: Cigarette Cigarettes Per Day: 4 Years Smoked: 42 years e-Cigarette/Vaping Use: Never Used service: No Current occupational status: disabled Cognitive needs: Yes (cane/walker) Hearing needs: No Vision needs: Yes (glasses) Questionnaire Thrive Questionnaire Date Thrive assessed: 11/12/23 AUDIT C Alcohol Use Questionnaire (AUDIT-C) 1. How often do you have a drink containing alcohol?: Never 3. How often do you have six or more drinks on one occasion?: Never Total Score: 0 EMILY-7 AMB Questionnaire EMILY-7 Date EMILY - 7 assessed: 11/12/23 Source: Developed by Drs. Enoch Vallecillo, Anum Jung, Nathan Tiwari and colleagues, with an educational clifton from [employer]. Physical exam (Primary Care) Vital Signs: Last Vital Signs Pulse 84 06/09/24 09:39 BP 118/78 06/09/24 09:39 Pulse Ox 97 06/09/24 09:39 Oxygen Delivery Method Room Air 06/09/24 09:39 Tobacco/Smoking Status: Tobacco use Status Tobacco use date assessed 11/12/23 06/09/24 09:40 Patient Tobacco Use Status Former Tobacco user 06/09/24 09:40 Tobacco use type Cigarette 06/09/24 09:40 e-Cigarette/Vaping Use Never Used 06/09/24 09:40 Thrive Assessment: Date of Thrive Assessment Date Thrive assessed 11/12/23 06/09/24 09:40 Extrem Other: Right wrist: Swelling in the wrist. Pain on flexion or extension. Assessment and Plan Assessment & Plan (1) Right wrist pain: Code(s): M25.531 - Pain in right wrist Plan: X-ray images ordered. Patient was provided with a brace again. Orthopedic appointment for possible steroid injection given. LOCK SETTER checked. She just picked up a prescription for tramadol in the middle of April. I declined to prescribe any opiate pain medications. She claims allergies to any anti-inflammatories. Prednisone was ordered. Patient was advised to take Tylenol in addition. Coding Level of Care Code Est Pt Level 4 (47618) Complex EM visit Add On G2211 Diagnoses Right wrist pain M25.531
[2024-06-09 09:39] VITALS: BP 118/78; PULSE 84; O2SAT 97
== END 2024-06-09 10:29 | disposition home or self-care (01) ==
PROVIDERS: PCP Physician Assistant; Visit Provider Internal Medicine
DX: M25.531 Pain in right wrist (principal)
CPT/HCPCS: 99214; G2211

== ENCOUNTER 2024-07-05 09:46 | Outpatient (REF) | payer OTHER, SELFPAY ==
--- NOTE | ~2024-07-05 | XR_ITS ---
EXAMINATION: XR WRIST, RIGHT CLINICAL INFORMATION: Right hand pain. Fell one week ago. COMPARISON: 04/26/2023. TECHNIQUE: PA, lateral, and oblique views of the right wrist. FINDINGS: Bones are osteopenic. Soft tissues are swollen. Ufdupahc-ob-rwtvle osteoarthritis of the 1st CMC and triscaphe joints. More mild osteoarthritis in multiple MCP joints and the thumb interphalangeal joint, as well as the distal radioulnar joint. There is an osseous fragment at the ulnar margin of the distal radius which could correspond to sequela of an old healed fracture. XR/XR wrist RT w scaphoid IMPRESSION: 1. No acute fracture or malalignment. 2. Cijqkguc-hn-bbkqdw osteoarthritis in the 1st CMC and triscaphe joints. 3. Osteopenia. Electronically signed by: Evelio Drummond MD 07/11/2024 05:17 PM EDT
== END 2024-07-05 09:47 | disposition home or self-care (01) ==
LOC: HO.HOSX 09:46
PROVIDERS: PCP Internal Medicine
DX: M79.641 Pain in right hand (principal); R20.0 Anesthesia of skin; R20.2 Paresthesia of skin
CPT/HCPCS: 73110; 99212

== ENCOUNTER 2024-07-05 10:28 | Outpatient (AMB) | payer OTHER, SELFPAY ==
--- NOTE | 2024-07-05 10:33 | A.OFFVIS_ITS ---
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 She had a fall about a week ago that she says exacerbated her right wrist pain. Patient reports sharp pain and intermittent numbness in her 1st, 2nd, 3rd, and 4th digits. swelling at all her PIP joints. When her pain is severe she places her hand under her leg due to no other position being comfortable. She reports dropping objects. She was provided a small brace in another office that does not give any relief. Tylenol does not offer relief, allergic to ibuprofen. She reports having injections in her right hand but found no relief. She was told this is due to her having severe arthritis. She would like to try another brace. Allergies baclofen Allergy (Severe, Verified 07/05/24 10:38) GI upset dexamethasone Allergy (Severe, Verified 07/05/24 10:38) Vomiting doxycycline Allergy (Severe, Verified 07/05/24 10:38) Vomiting naproxen [Aleve] Allergy (Severe, Verified 07/05/24 10:38) Vomiting penicillin V Allergy (Severe, Verified 07/05/24 10:38) vomitting Sulfa (Sulfonamide Antibiotics) Allergy (Severe, Verified 07/05/24 10:38) Vomiting ibuprofen [Advil] Allergy (Intermediate, Verified 07/05/24 10:38) Vomiting codeine [Codeine] Allergy (Mild, Verified 07/05/24 10:38) VOMITING aspirin [ASPIRIN] Adverse Reaction (Severe, Verified 07/05/24 10:38) VOMITING HPI 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 The patient reports that she knows she has significant arthritis in her right hand and wrist, but states that she has had several injections, occupational therapy, has tried bracing, and has taken several zokq-ftd-mkdkoxk and prescription strength pain medications, to minimal effect. The patient states that occasionally, her pain gets so severe that she feels her only option is to ?sit on my hand? in order to help the pain, which she states does bring temporary relief. Patient expresses that she has no interest in further injections or any potential surgeries at this time, as she has had several injections that have not helped as well as ?26 surgeries in the last 5 years?, and she does not feel her body could withstand another surgery. Patient was previously prescribed tramadol 50 mg by her primary care provider for pain relief. Of note, the patient also states that she has been diagnosed in the past with carpal tunnel syndrome, and states that she now has constant numbness in the median nerve distribution of the right hand. The patient inquires about any further treatment options available to her, as well as enquiring if we can prescribe her any stronger pain medication. [facility] Medical History Major depressive disorder, recurrent severe without psychotic features Hypokalemia Flat feet, bilateral Chronic post-traumatic stress disorder (PTSD) Screening for breast cancer Annual physical exam Pulmonary nodules Chronic respiratory failure COPD (chronic obstructive pulmonary disease) Abdominal hernia Right lumbar radiculopathy Osteopenia Surgical History H/O hernia repair History of colectomy History of eye surgery History of colonoscopy History of umbilical hernia repair History of bladder surgery History of total abdominal hysterectomy and bilateral salpingo-oophorectomy History of cholecystectomy History of appendectomy History of tonsillectomy Family History Father Renal cell cancer Prostate cancer Leukemia Diabetes Hypertension Mother Hypertension Paternal Grandmother Colon cancer Maternal Grandfather Myocardial infarction Sister Lupus Daughter In good health Other Mental health disorder Social History Housing: Apartment Alcohol intake: never Patient Tobacco Use Status: Current someday Tobacco user Tobacco use type: Cigarette Cigarettes Per Day: 4 Years Smoked: 42 years e-Cigarette/Vaping Use: Never Used service: No Current occupational status: disabled Current occupation: right hand dominant Cognitive needs: Yes (cane/walker) Hearing needs: No Vision needs: Yes (glasses) Review of Systems Const All systems reviewed & are unremarkable except as noted in HPI and below Physical Exam Extrem Other: Patient is alert, oriented, and in no acute distress. Neuro: Patient reports diminished sensation in the median nerve distribution of the right hand Vascular: Cap refill brisk Pain: Patient reports significant tenderness to palpation about right wrist, as well as to all the digits of the right hand Significant pain with all range of motion of the right hand and wrist ROM: Patient is unable to make a closed fist, even with encouragement Both flexion and extension of the right wrist are severely limited due to pain Skin: No lacerations or abrasions. General: No ecchymosis, erythema, or evidence of infection. Visible bony nodules noted on the PIP joints of the 2nd through 5th digits of the right hand Psych: Appears grossly normal Affect normal Attitude cooperative Quality Reporting (2020) Adult ([facility] 138/12/18/68) Smoking risk assessment performed?: Yes Patient Tobacco Use Status: Former Tobacco user Results Reviewed Results Reviewed: X-rays obtained in the office today and independently reviewed by me, Wicho Francois PA-C, demonstrate significant arthritis of both the radioscaphoid and radiolunate joints, as well as significant arthritis of the 1st CMC joint. Assessment & Plan Assessment & Plan (1) Numbness and tingling of right hand: Code(s): R20.0 - Anesthesia of skin; R20.2 - Paresthesia of skin Category: Medical Plan 1. Osteoarthritis of the right wrist 2. 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 The patient inquires if there are any stronger pain medications that I can offer her, and I informed her that she is already on tramadol 50 mg, which is the strongest pain medication typically prescribed in the outpatient setting However, I offered the patient a Velcro wrist splint to wear with daytime activities as well as at night we will help with carpal tunnel symptoms I also offered the patient occupational therapy, which she did feel comfortable proceeding with OT ordered and the patient was provided with this Velcro wrist splint Patient will follow-up as needed with any acute concerns 3. Numbness and tingling of right hand Symptoms constant, daily, worse at night I educated the patient on this condition and the typical treatment course However, the patient states that many years ago, she did have a nerve conduction study, and states that this was ?the most unpleasant experience of my life?, , and states that she is not open to having another 1 at this time The patient inquires if bracing can help, and I did tell her that night bracing can help with nighttime symptoms Patient would like to see if bracing and OT will help to alleviate her symptoms, and will call to explore further treatment options if they do not Patient will follow-up as needed with any acute concerns Orders: Orders XR wrist RT w scaphoid Today M79.641 - Pain in right hand OT Evaluation and Treatment Today M19.031 - Primary osteoarthritis, right wrist, M19.041 - Primary osteoarthritis, right hand Medications: Refilled trazodone 50 mg PO BEDTIME 30 tabs 2RF Coding Level of Care Code New Pt Level 3 (20250) Diagnoses Numbness and tingling of right hand R20.0; R20.2
== END 2024-07-05 11:18 | disposition home or self-care (01) ==
PROVIDERS: PCP Physician Assistant
DX: R20.0 Anesthesia of skin (principal); R20.2 Paresthesia of skin
CPT/HCPCS: 99203; 99213

== ENCOUNTER 2024-07-06 09:11 | Outpatient (AMB) | payer OTHER, SELFPAY ==
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
== END 2024-07-06 10:09 | disposition home or self-care (01) ==
LOC: HO.HOP 09:11
PROVIDERS: PCP Internal Medicine; Visit Provider Clinical Nurse Specialist Psychiatric/Mental Health
DX: F41.1 Generalized anxiety disorder (principal); F41.0 Panic disorder [episodic paroxysmal anxiety]; F31.60 Bipolar disorder, current episode mixed, unspecified
CPT/HCPCS: 99215

== ENCOUNTER → 2024-07-06 09:11 | Outpatient (BNVA) | payer OTHER, SELFPAY | PROVIDERS: PCP Internal Medicine; Visit Provider Clinical Nurse Specialist Psychiatric/Mental Health | DX: F31.60 Bipolar disorder, current episode mixed, unspecified (principal); F41.1 Generalized anxiety disorder; F41.0 Panic disorder [episodic paroxysmal anxiety] | CPT/HCPCS: 99212 ==

== ENCOUNTER 2024-07-15 11:17 | Outpatient (AMB) | payer OTHER, SELFPAY ==
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
== END 2024-07-15 12:52 | disposition home or self-care (01) ==
LOC: HO.HOP 11:17
PROVIDERS: PCP Internal Medicine; Visit Provider Clinical Nurse Specialist Psychiatric/Mental Health
DX: F41.1 Generalized anxiety disorder (principal); F41.0 Panic disorder [episodic paroxysmal anxiety]; F31.60 Bipolar disorder, current episode mixed, unspecified; F60.3 Borderline personality disorder
CPT/HCPCS: 90833; 99214

== ENCOUNTER → 2024-07-15 11:17 | Outpatient (BNVA) | payer OTHER, SELFPAY | PROVIDERS: PCP Internal Medicine; Visit Provider Clinical Nurse Specialist Psychiatric/Mental Health | DX: F41.1 Generalized anxiety disorder (principal); F41.0 Panic disorder [episodic paroxysmal anxiety]; F31.60 Bipolar disorder, current episode mixed, unspecified; F60.3 Borderline personality disorder | CPT/HCPCS: 99212 ==

== ENCOUNTER 2024-07-19 11:04 | Outpatient (AMB) | payer OTHER, SELFPAY ==
[2024-07-19 11:16] VITALS: BP 130/62; PULSE 92; O2SAT 97; BMI 36.0
--- NOTE | 2024-07-19 11:16 | A.OFFPC_ITS ---
Vital Signs 3 07/19/24 11:16 Height 5 ft 3 in Weight 203 lb BMI 36.0 BP 130/62 Blood Pressure Location Lt brachial Position Sitting Pulse 92 Pulse Source Pulse Oximeter Pulse Oximetry (%) 97 Oxygen Delivery Method Room Air Intake Visit Reasons: f/u Chronic issues Ladle Cleaner Required: No Accompanied by: Self / Same As Patient Allergies baclofen Allergy (Severe, Verified 07/19/24 11:52) GI upset dexamethasone Allergy (Severe, Verified 07/19/24 11:52) Vomiting doxycycline Allergy (Severe, Verified 07/19/24 11:52) Vomiting naproxen [Aleve] Allergy (Severe, Verified 07/19/24 11:52) Vomiting penicillin V Allergy (Severe, Verified 07/19/24 11:52) vomitting Sulfa (Sulfonamide Antibiotics) Allergy (Severe, Verified 07/19/24 11:52) Vomiting ibuprofen [Advil] Allergy (Intermediate, Verified 07/19/24 11:52) Vomiting codeine [Codeine] Allergy (Mild, Verified 07/19/24 11:52) VOMITING aspirin [ASPIRIN] Adverse Reaction (Severe, Verified 07/19/24 11:52) VOMITING Medication List - Last Reconciled 07/19/24 by Jigar Patel PA-C acetaminophen ER 650 mg PO Q12H PRN 30 days albuterol sulfate 90 mcg/actuation 2 inhalations inhalation Q6H PRN 30 days apixaban (Eliquis) 5 mg PO BID 30 days cariprazine (Vraylar) 4.5 mg PO DAILY chair, wheel (Wheel chair) As directed cholecalciferol (vitamin D3) 25 mcg PO DAILY cholecalciferol (vitamin D3) 50 mcg PO DAILY 90 days diaper,brief,adult,disposable As directed size large diazepam 5 mg orally take one tablet in am and take 2 at bedtime; diphenoxylate-atropine 2.5-0.025 mg 6 tabs orally daily; disposable gloves As directed escitalopram oxalate (Lexapro) 10 mg PO DAILY esomeprazole magnesium 40 mg PO BID [id number]-[id number]-[id number] 100-62.5-25 mcg (Trelegy Ellipta) 1 ea PO DAILY furosemide 40 mg PO BID gloves, latex with aloe vera (Aloe Vera Latex Gloves) 1 ea miscellaneous DAILY 30 days [hand held shawer spray As directed] lamotrigine (Lamictal) 150 mg (1.5 x 100 mg) PO DAILY levothyroxine 50 mcg PO DAILY lidocaine 5% 1 appl topical DAILY 30 days lisinopril 30 mg PO DAILY loperamide 2 mg PO TID 90 days loratadine 10 mg PO DAILY 30 days menthol-zinc oxide 0.44-20.6 % (Calmoseptine) 1 appl topical QID 30 days multivitamin 1 tab PO DAILY 90 days ondansetron HCl 8 mg PO QID 30 days potassium chloride ER (Klor-Con M) 20 mEq PO DAILY 30 days [pull ups As directed] [right hand brace As directed] simethicone (Gas Relief (simethicone)) 125 mg PO TID PRN 30 days sitz bath ([employer] Sitz Bath) As directed thiamine HCl (vitamin B1) 100 mg PO DAILY 90 days walker (Ultra-Light Rollator misc) As directed [washable bedpads As directed] Tobacco use date assessed: 11/12/23 Dental Screening Dental Screen Date: 11/12/23 HPI f/u Chronic issues 2 HPI0 Details Patient is a 64-year-old female here today for a a follow-up visit. Patient has a past medical history significant for COPD , bipolar disorder GERD hypertension, hypothyroidism, heart failure. Wrist and hand arthritis: Has followed up with Orthopedics whom recommended occupational therapy. Patient has pretty advanced osteoarthritis in her wrist and hand and continues to have pain. She has been having some difficulties with her public policy manager strength and fine manipulation due to her hand pain. She is unable to take NSAIDs due to being on anticoagulation at this time. She does report tramadol does help at times does asking for temporary script for steroid to help with inflammation. .. Depression: Patient continues to suffer with pretty severe depression, PTSD and anxiety. Continues to follow her psychiatrist on a biweekly basis. She reports not having degraded support in her family and often feels isolated and alone. She is currently in the process of moving out of her apartment due to issues with neighbors. She is on multiple mental health medications and feels they are not too helpful at this time. . Ventral hernia /status post colon resection: Has had a very complicated surgical GI history. She was status post ileostomy revision and anastomosis. She has been left with large hernias that surgeons attempted to repair that was complicated by abdominal abscesses. Nonetheless she was left with chronic malabsorption type diarrhea. She reports passing watery stool 20 times per day. She needs to use loperamide and antidiarrheal prescription medications on a daily basis. She continues to rectal pain and burning due to the frequency of her bowel movements. Also has been experiencing some electrolyte deficiencies and low blood pressures likely due to volume some depletion.. She is followed by director of loss prevention (Dr. Shabazz) .. Polyarthralgia: reports she worried about her degeneration in her back and upper extremity. She does have degenerative lumbar spine. She has active notable arthritic nodules in her hands and wrists. She reports taking tramadol which had significantly reduced her joint pains She also has pretty significant lumbar spine disc issues. She does use tramadol 50 mg b.i.d. at this time which has been somewhat helpful for pain though was still having breakthrough pain.. CHF: Recently diagnosed with heart failure with preserved ejection fraction, subsegmental PEs during her hospitalization. Has been started on Eliquis 5 mg b.i.d. and no overt signs of bleeding noted. She was started on furosemide 40 mg b.i.d.. She does have an upcoming appointment to establish care with a local net trainer. She did see a net trainer while in [place] and advised on starting statin therapy and re-establishing care with local cardiology. .. COPD: Unfortunately has started smoking again due to her stress.. Continues to have some shortness of breath at times which could be related to her recent pulmonary embolism and her Congestive heart failure.. 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 [employer] Medical History Major depressive disorder, recurrent severe without psychotic features Hypokalemia Flat feet, bilateral Chronic post-traumatic stress disorder (PTSD) Screening for breast cancer Annual physical exam Pulmonary nodules Chronic respiratory failure COPD (chronic obstructive pulmonary disease) Abdominal hernia Right lumbar radiculopathy Osteopenia Surgical History H/O hernia repair History of colectomy History of eye surgery History of colonoscopy History of umbilical hernia repair History of bladder surgery History of total abdominal hysterectomy and bilateral salpingo-oophorectomy History of cholecystectomy History of appendectomy History of tonsillectomy Family History Father Renal cell cancer Prostate cancer Leukemia Diabetes Hypertension Mother Hypertension Paternal Grandmother Colon cancer Maternal Grandfather Myocardial infarction Sister Lupus Daughter In good health Other Mental health disorder Social History Housing: Apartment Alcohol intake: never Patient Tobacco Use Status: Current someday Tobacco user Tobacco use type: Cigarette Cigarettes Per Day: 4 Years Smoked: 42 years e-Cigarette/Vaping Use: Never Used service: No Current occupational status: disabled Current occupation: right hand dominant Cognitive needs: Yes (cane/walker) Hearing needs: No Vision needs: Yes (glasses) Questionnaire Thrive Questionnaire Date Thrive assessed: 11/12/23 Are you currently unemployed and looking for a job?: No EMILY-7 AMB Questionnaire EMILY-7 Date EMILY - 7 assessed: 11/12/23 Source: Developed by Drs. Enoch Vallecillo, Anum Jung, Nathan Tiwari and colleagues, with an educational clifton from [employer]. Review of Systems Const Denies headache(s) Eyes Denies loss of vision ENT Denies vertigo, Denies dizziness, Denies headache(s) and Denies sore throat Card Denies chest pain, Denies leg edema and Denies lightheadedness Resp Denies cough, Denies hemoptysis and Denies wheezing GI Denies abdominal pain, Denies melena, Denies constipation, Denies diarrhea and Denies vomiting Denies urinary frequency, Denies dysuria and Denies urinary urgency Musc Denies arthralgias, Denies joint swelling, Denies numbness and Denies tingling Neuro Denies Abnormal speech present, Denies behavioral changes, Denies vertigo, Denies dizziness, Denies headache(s), Denies loss of vision, Denies memory loss, Denies numbness and Denies tingling Psych Denies anxiety, Denies behavioral changes, Denies depression, Denies memory loss and Denies panic attacks Patrick/Lymph Denies easy bleeding and Denies easy bruising Aller/Immun Denies wheezing Physical exam (Primary Care) Vital Signs: Last Vital Signs Pulse 92 07/19/24 11:16 BP 130/62 07/19/24 11:16 Pulse Ox 97 07/19/24 11:16 Oxygen Delivery Method Room Air 07/19/24 11:16 BMI result Body Mass Index 36.0 Tobacco/Smoking Status: Tobacco use Status Tobacco use date assessed 11/12/23 07/19/24 11:20 Patient Tobacco Use Status Current someday Tobacco 07/19/24 11:20 Tobacco use type Cigarette 07/19/24 11:20 e-Cigarette/Vaping Use Never Used 07/19/24 11:20 Thrive Assessment: Date of Thrive Assessment Date Thrive assessed 11/12/23 07/19/24 11:20 Const General: healthy appearing, no acute distress, alert and awake Nutritional Appearance: well nourished Orientation/consciousness: oriented to person, oriented to place and oriented to time HENMT Ears: TM's normal bilaterally General nose exam: Normal nasal mucous membranes and turbinates present Eyes Conjunctivae: conjunctivae normal Sclerae: sclerae normal Pupils: Equal, round and reactive pupils present Neck Neck: Yes no lymphadenopathy and Yes no JVD Thyroid: Thyroid normal Carotids: no bruits Resp Effort & Inspection: normal respiratory effort and not tachypneic Auscultation: no crackles, no rales, no rhonchi and no wheezes Cardio Rate: regular rate Rhythm: regular rhythm Heart sounds: no murmurs and normal S1 and S2 GI Palpation (GI): Soft to palpation, nontender, no hepatomegaly and no splenomegaly Auscultation: normal bowel sounds Skin General skin exam: no rashes or lesions noted and dry skin Neuro General: oriented to person, oriented to place and oriented to time Cranial nerves: Yes Equal, round and reactive pupils present Speech: No Abnormal speech present Gait exam (Neuro): Normal gait present Motor exam (neuro): no tremor noted Extrem Right upper extremity: full ROM Left upper extremity: full ROM Hand/finger images: 2 1. NOTABLE ARTHRITIC NODULES OVER DIPS OF THE DIGITS. Right lower extremity: full ROM; no edema Left lower extremity: full ROM; no edema Psych Mental Status: mental status grossly normal Speech and movement: Normal speech and movement present Affect: normal affect Attitude: cooperative Thought process: Normal thought process present Assessment and Plan Assessment & Plan (1) Osteoarthritis of right wrist: Code(s): M19.031 - Primary osteoarthritis, right wrist Qualifiers: Osteoarthritis type: primary Qualified Code(s): M19.031 - Primary osteoarthritis, right wrist Plan: As per HPI patient is pretty extensive hand and wrist osteoarthritis. Unable to take NSAIDs due to being on anticoagulation. She reports Tylenol has not been helpful. Will supply patient with short-term script of prednisone to use on a p.r.n. basis for inflammation. (2) Rectal burning: Code(s): R20.8 - Other disturbances of skin sensation Plan: Continues to have rectal burning due to the frequency of her bowel movements. She is dependent on loperamide and antidiarrheal prescription medication. Also uses topical creams and lidocaine topical cream to her symptoms. She is spoken with her director of loss prevention whom is considering placing her back on an ileostomy bag (3) Pulmonary embolism: Comment: September of 2023 Code(s): I26.99 - Other pulmonary embolism without acute cor pulmonale Qualifiers: Acute cor pulmonale presence: without acute cor pulmonale Chronicity: a cute Pulmonary embolism type: unspecified Qualified Code(s): I26.99 - Other pulmonary embolism without acute cor pulmonale Plan: Did have segmental pulmonary embolism during her hospitalization after her recent hernia surgery. Has been placed on Eliquis for ? Six months. (4) HLD (hyperlipidemia): Code(s): E78.5 - Hyperlipidemia, unspecified Qualifiers: Hyperlipidemia type: mixed hyperlipidemia Qualified Code(s): E78.2 - Mixed hyperlipidemia Plan: Patient does have a history of hyperlipidemia. She was to start cholesterol medication in the past though due to her dietary restrictions and GI issues we have not started cholesterol medication. (5) Degenerative lumbar spinal stenosis: Code(s): M48.061 - Spinal stenosis, lumbar region without neurogenic claudication Plan: Continues to complain of lower lumbar spine pain. Again offered her physical therapy and pain management referral though she declines stating she is already try this. She is interested in medication to help her be more physically active and walk better. She does use a walker for ambulatory assistance. We did have long discussion and agreed upon tramadol 50 mg to use on a 3 times a day as needed basis. (6) COPD (chronic obstructive pulmonary disease): Code(s): J44.9 - Chronic obstructive pulmonary disease, unspecified Qualifiers: COPD type: emphysema Emphysema type: centrilobular Qualified Code(s): J43.2 - Centrilobular emphysema Plan: As above patient was a former smoker. She reports completely quitting smoking before her hernia surgeries. Continues to have some shortness of breath especially on exertion. Of note does have segmental PEs perioperatively in September 2023. Also does have Congestive heart failure though seems to be well compensated at this time. (7) Obese: Code(s): E66.9 - Obesity, unspecified Qualifiers: Body mass index: BMI 36.0-36.9 Obesity classification: adult class 2 (BMI 35 - 39.9) Obesity type: due to excess calories Serious obesity comorbidity presence: with serious comorbidity Qualified Code(s): E66.01 - Morbid (severe) obesity due to excess calories; Z68.36 - Body mass index [BMI] 36.0-36.9, adult Plan: Patient interested in speaking with weight management about weight reduction modalities. She is a complicated case as she has extensive GI surgical history Orders: Orders 2 Lipid Panel 07/19/24 E78.2 - Mixed hyperlipidemia Referrals 2 Metabolic Clinic Referral E66.01 - Morbid (severe) obesity due to excess calories, E78.2 - Mixed hyperlipidemia, Z68.36 - Body mass index [BMI] 36.0- 36.9, adult Medications: New 2 prednisone 5 mg PO Q OTHER DAY 30 days 15 tabs 0RF M19.041 - Primary osteoarthritis, right hand tramadol 50 mg PO Q8H 30 days 90 tabs 1RF pain M54.16 - Radiculopathy, lumbar region cane As directed 1 ea 0RF M54.16 - Radiculopathy, lumbar region Refilled 2 ondansetron HCl 8 mg PO QID 30 days 120 tabs 0RF nausea and vomiting K21.9 - Gastro-esophageal reflux disease without esophagitis, K46.9 - Unspecified abdominal hernia without obstruction or gangrene, R11.0 - Nausea Coding Level of Care Code Est Pt Level 4 (37563) Diagnoses Primary osteoarthritis of right wrist M19.031 Osteoarthritis type: primary Rectal burning R20.8 Acute pulmonary embolism without acute cor pulmonale, unspecified pulmonary embolism type I26.99 Acute cor pulmonale presence: without acute cor pulmonale Chronicity: acute Pulmonary embolism type: unspecified Mixed hyperlipidemia E78.2 Hyperlipidemia type: mixed hyperlipidemia Degenerative lumbar spinal stenosis M48.061 Centrilobular emphysema J43.2 COPD type: emphysema Emphysema type: centrilobular Class 2 severe obesity due to excess calories with serious comorbidity and body mass index (BMI) of 36.0 to 36.9 in adult E66.01; Z68.36 Body mass index: BMI 36.0-36.9 Obesity classification: adult class 2 (BMI 35 - 39.9) Obesity type: due to excess calories Serious obesity comorbidity presence: with serious comorbidity
== END 2024-07-19 12:16 | disposition home or self-care (01) ==
PROVIDERS: PCP Physician Assistant; Visit Provider Physician Assistant
DX: I26.99 Other pulmonary embolism without acute cor pulmonale (principal); J43.2 Centrilobular emphysema; E66.01 Morbid (severe) obesity due to excess calories; Z68.36 Body mass index [BMI] 36.0-36.9, adult; M19.031 Primary osteoarthritis, right wrist; M48.061 Spinal stenosis, lumbar region without neurogenic claudication; R20.8 Other disturbances of skin sensation; E78.2 Mixed hyperlipidemia

== ENCOUNTER → 2024-07-19 11:04 | Outpatient (BNVA) | payer OTHER, SELFPAY | PROVIDERS: PCP Internal Medicine; Visit Provider Physician Assistant | DX: M19.031 Primary osteoarthritis, right wrist (principal); R20.8 Other disturbances of skin sensation; I26.99 Other pulmonary embolism without acute cor pulmonale; E78.2 Mixed hyperlipidemia; M48.061 Spinal stenosis, lumbar region without neurogenic claudication; J43.2 Centrilobular emphysema; E66.01 Morbid (severe) obesity due to excess calories; Z68.36 Body mass index [BMI] 36.0-36.9, adult | CPT/HCPCS: 99212 ==

== ENCOUNTER 2024-08-06 07:53 | Outpatient (AMB) | payer OTHER, SELFPAY ==
[2024-08-06 08:41] VITALS: BP 116/70; PULSE 93; O2SAT 93; BMI 36.3
--- NOTE | 2024-08-06 08:41 | MHC.PC.OV ---
Vital Signs 08/06/24 08:41 Height 5 ft 3 in Weight 205 lb BMI 36.3 BP 116/70 Blood Pressure Location Lt brachial Position Sitting Pulse 93 Pulse Source Pulse Oximeter Pulse Oximetry (%) 93 Oxygen Delivery Method Room Air Intake Visit Reasons: [facility] 07/25 staph infection Intake Note: Pt reports being started on Protonix at [facility] but is unsure of the dosage. Cross Tie Maker Required: No Accompanied by: Self / Same As Patient Allergies baclofen Allergy (Severe, Verified 08/06/24 08:43) GI upset dexamethasone Allergy (Severe, Verified 08/06/24 08:43) Vomiting doxycycline Allergy (Severe, Verified 08/06/24 08:43) Vomiting naproxen [Aleve] Allergy (Severe, Verified 08/06/24 08:43) Vomiting penicillin V Allergy (Severe, Verified 08/06/24 08:43) vomitting Sulfa (Sulfonamide Antibiotics) Allergy (Severe, Verified 08/06/24 08:43) Vomiting ibuprofen [Advil] Allergy (Intermediate, Verified 08/06/24 08:43) Vomiting codeine [Codeine] Allergy (Mild, Verified 08/06/24 08:43) VOMITING aspirin [ASPIRIN] Adverse Reaction (Severe, Verified 08/06/24 08:43) VOMITING Tobacco use date assessed: 08/06/24 Dental Screening Dental Screen Date: 11/12/23 HPI HPI Comments History of Present Illness Details 64 y/o female patient who presents to the clinic for HDF. She was admitted at [facility] on 07/22/24 due to Staph infection causing an Ileus. She was discharged home 07/25/24 and will be following up with KASIA Shabazz in September. Today reports feeling much better. No concerns. [facility] Medical History Major depressive disorder, recurrent severe without psychotic features Hypokalemia Flat feet, bilateral Chronic post-traumatic stress disorder (PTSD) Screening for breast cancer Annual physical exam Pulmonary nodules Chronic respiratory failure COPD (chronic obstructive pulmonary disease) Abdominal hernia Right lumbar radiculopathy Osteopenia Surgical History H/O hernia repair History of colectomy History of eye surgery History of colonoscopy History of umbilical hernia repair History of bladder surgery History of total abdominal hysterectomy and bilateral salpingo-oophorectomy History of cholecystectomy History of appendectomy History of tonsillectomy Family History Father Renal cell cancer Prostate cancer Leukemia Diabetes Hypertension Mother Hypertension Paternal Grandmother Colon cancer Maternal Grandfather Myocardial infarction Sister Lupus Daughter In good health Other Mental health disorder Social History Housing: Apartment Alcohol intake: never Patient Tobacco Use Status: Current someday Tobacco user Tobacco use type: Cigarette Cigarettes Per Day: 4 Years Smoked: 42 years e-Cigarette/Vaping Use: Never Used service: No Current occupational status: disabled Current occupation: right hand dominant Cognitive needs: Yes (cane/walker) Hearing needs: No Vision needs: Yes (glasses) Questionnaire PHQ-9 Over the last 2 weeks, how often have you been bothered by any of the following problems? 1. Little interest or pleasure in doing things: nearly every day 2. Feeling down, depressed, or hopeless: nearly every day 3. Trouble falling or staying asleep, or sleeping too much: more than half the days 4. Feeling tired or having little energy: more than half the days 5. Poor appetite or overeating: nearly every day 6. Feeling bad about yourself - or that you are a failure or have let yourself or your family down: nearly every day 7. Trouble concentrating on things, such as reading the newspaper or watching television: more than half the days 8. Moving or speaking so slowly that other people could have noticed. Or the opposite - being so fidgety or restless that you have been moving around a lot more than usual: not at all 9. Thoughts that you would be better off or of hurting yourself in some way: not at all Total score: 18 Depression Screening Interpretation: Positive Depression Screening Follow-up: Existing condition and In treatment Depression Screening Done: Yes 72196 - PHQ-9 Billing: Yes Source: Developed by Drs. Enoch Vallecillo, Anum Jung, Nathan Tiwari and colleagues, with an educational clifton from [employer]. Thrive Questionnaire Date Thrive assessed: 11/12/23 Are you currently unemployed and looking for a job?: No AUDIT C Alcohol Use Questionnaire (AUDIT-C) 1. How often do you have a drink containing alcohol?: Never 3. How often do you have six or more drinks on one occasion?: Never Total Score: 0 EMILY-7 AMB Questionnaire EMILY-7 Date EMILY - 7 assessed: 11/12/23 Source: Developed by Drs. Enoch Vallecillo, Anum Jung, Nathan Tiwari and colleagues, with an educational clifton from [employer]. Review of Systems Const All systems reviewed & are unremarkable except as noted in HPI and below Physical exam (Primary Care) Vital Signs: Last Vital Signs Pulse 93 08/06/24 08:41 BP 116/70 08/06/24 08:41 Pulse Ox 93 08/06/24 08:41 Oxygen Delivery Method Room Air 08/06/24 08:41 BMI result Body Mass Index 36.3 Tobacco/Smoking Status: Tobacco use Status Tobacco use date assessed 08/06/24 08/06/24 08:48 Patient Tobacco Use Status Current someday Tobacco 08/06/24 08:43 Tobacco use type Cigarette 08/06/24 08:43 e-Cigarette/Vaping Use Never Used 08/06/24 08:43 PHQ-9: PHQ-9 Score PHQ-9: Total score 18 08/06/24 08:48 Depression Screening Interpretation: Positive Depression Screening Follow-up: Existing condition and In treatment Thrive Assessment: Date of Thrive Assessment Date Thrive assessed 11/12/23 08/06/24 08:43 Const General: cooperative and no acute distress Nutritional Appearance: obese Orientation/consciousness: patient oriented x3 Resp Effort & Inspection: normal respiratory effort Auscultation: clear to auscultation bilaterally Cardio Heart sounds: S1 normal heart sound present and S2 normal heart sound present GI Palpation (GI): Soft to palpation, not firm, nontender, no guarding, not rigid, No hepatosplenomegaly present and Hernia present (Supraumbilical hernia present) Auscultation: normal bowel sounds Neuro General: patient oriented x3, gait normal and moves all extremities Psych Speech and movement: Normal speech and movement present Coding Level of Care Code Est Pt Level 4 (15560) Diagnoses Ileus due to infection K56.7; B99.9 Gastroesophageal reflux disease without esophagitis K21.9 Esophagitis presence: without esophagitis Time Spent (min) 20 Comment Spent reviewing hospital notes. Assessment & Plan Assessment & Plan (1) Ileus due to infection: Code(s): K56.7 - Ileus, unspecified; B99.9 - Unspecified infectious disease Plan: Continue f/u with GI as scheduled. (2) GERD (gastroesophageal reflux disease): Code(s): K21.9 - Gastro-esophageal reflux disease without esophagitis Category: Medical Qualifiers: Esophagitis presence: without esophagitis Qualified Code(s): K21.9 - Gastro-esophageal reflux disease without esophagitis Plan: Ordered Pantoprazole 40 mg daily. Medications: New pantoprazole 40 mg PO DAILY 90 tabs 0RF K21.9 - Gastro-esophageal reflux disease without esophagitis
== END 2024-08-06 09:09 | disposition home or self-care (01) ==
PROVIDERS: PCP Physician Assistant; Visit Provider Nurse Practitioner Family
DX: K56.7 Ileus, unspecified (principal); B99.9 Unspecified infectious disease; K21.9 Gastro-esophageal reflux disease without esophagitis

== ENCOUNTER → 2024-08-06 07:53 | Outpatient (BNVA) | payer OTHER, SELFPAY | PROVIDERS: PCP Physician Assistant; Visit Provider Nurse Practitioner Family | DX: K56.7 Ileus, unspecified (principal); B99.9 Unspecified infectious disease; K21.9 Gastro-esophageal reflux disease without esophagitis | CPT/HCPCS: 99212 ==

== ENCOUNTER 2024-08-10 10:45 | Outpatient (AMB) | payer OTHER, SELFPAY ==
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
== END 2024-08-10 11:36 | disposition home or self-care (01) ==
LOC: HO.HOP 10:45
PROVIDERS: PCP Physician Assistant; Visit Provider Clinical Nurse Specialist Psychiatric/Mental Health
DX: F60.3 Borderline personality disorder (principal); F41.1 Generalized anxiety disorder; F41.0 Panic disorder [episodic paroxysmal anxiety]
CPT/HCPCS: 99214

== ENCOUNTER → 2024-08-10 10:45 | Outpatient (BNVA) | payer OTHER, SELFPAY | PROVIDERS: PCP Physician Assistant; Visit Provider Clinical Nurse Specialist Psychiatric/Mental Health | DX: F60.3 Borderline personality disorder (principal); F41.1 Generalized anxiety disorder; F41.0 Panic disorder [episodic paroxysmal anxiety] | CPT/HCPCS: 99212 ==

== ENCOUNTER 2024-09-02 10:40 | Outpatient (AMB) | payer OTHER, SELFPAY ==
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
== END 2024-09-02 11:56 | disposition home or self-care (01) ==
PROVIDERS: PCP Physician Assistant; Visit Provider Clinical Nurse Specialist Psychiatric/Mental Health
DX: F33.9 Major depressive disorder, recurrent, unspecified (principal); F60.3 Borderline personality disorder; F41.1 Generalized anxiety disorder; F41.0 Panic disorder [episodic paroxysmal anxiety]
CPT/HCPCS: 99214

== ENCOUNTER → 2024-09-02 10:40 | Outpatient (BNVA) | payer OTHER, SELFPAY ==
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
== END ==
PROVIDERS: PCP Physician Assistant; Visit Provider Clinical Nurse Specialist Psychiatric/Mental Health
DX: F33.9 Major depressive disorder, recurrent, unspecified (principal); F60.3 Borderline personality disorder; F41.1 Generalized anxiety disorder; F41.0 Panic disorder [episodic paroxysmal anxiety]; F43.10 Post-traumatic stress disorder, unspecified; Z79.899 Other long term (current) drug therapy; Z71.89 Other specified counseling
CPT/HCPCS: 90867; 99212

== ENCOUNTER 2024-09-03 10:39 | Outpatient (AMB) | payer OTHER, SELFPAY ==
--- NOTE | 2024-09-03 10:43 | A.OFFVIS_ITS ---
Vital Signs 09/03/24 10:45 Height 5 ft 3 in Weight 209 lb 7.026 oz BMI 37.1 BP 124/62 Blood Pressure Location Lt brachial Position Sitting Pulse 82 Pulse Source Pulse Oximeter Pulse Oximetry (%) 99 Oxygen Delivery Method Room Air Intake Visit Reasons: COPD Drilling Field Professional Required: No Tree And Shrub Worker: Tree And Shrub Worker offered & declined Accompanied by: Self / Same As Patient Allergies baclofen Allergy (Severe, Verified 09/03/24 10:44) GI upset dexamethasone Allergy (Severe, Verified 09/03/24 10:44) Vomiting doxycycline Allergy (Severe, Verified 09/03/24 10:44) Vomiting naproxen [Aleve] Allergy (Severe, Verified 09/03/24 10:44) Vomiting penicillin V Allergy (Severe, Verified 09/03/24 10:44) vomitting Sulfa (Sulfonamide Antibiotics) Allergy (Severe, Verified 09/03/24 10:44) Vomiting ibuprofen [Advil] Allergy (Intermediate, Verified 09/03/24 10:44) Vomiting codeine [Codeine] Allergy (Mild, Verified 09/03/24 10:44) VOMITING aspirin [ASPIRIN] Adverse Reaction (Severe, Verified 09/03/24 10:44) VOMITING Medication List - Last Reconciled 09/03/24 by Betty Tsang LPN acetaminophen ER 650 mg PO Q12H PRN 30 days albuterol sulfate 90 mcg/actuation 2 inhalations inhalation Q6H PRN 30 days apixaban (Eliquis) 5 mg PO BID 30 days cane As directed cariprazine (Vraylar) 1.5 mg PO DAILY chair, wheel (Wheel chair) As directed cholecalciferol (vitamin D3) 25 mcg PO DAILY cholecalciferol (vitamin D3) 50 mcg PO DAILY 90 days diaper,brief,adult,disposable As directed size large diazepam 5 mg orally take one tablet in am and take 2 at bedtime; diphenoxylate-atropine 2.5-0.025 mg 6 tabs orally daily; disposable gloves As directed escitalopram oxalate (Lexapro) 10 mg PO DAILY escitalopram oxalate (Lexapro) 20 mg PO DAILY odgcgeqzhqp-xqhxpiova-rtzlpqlc 100-62.5-25 mcg (Trelegy Ellipta) 1 ea PO DAILY furosemide 40 mg PO BID gloves, latex with aloe vera (Aloe Vera Latex Gloves) 1 ea miscellaneous DAILY 30 days [hand held shawer spray As directed] levothyroxine 50 mcg PO DAILY lidocaine 5% 1 appl topical DAILY 30 days lisinopril 30 mg PO DAILY loperamide 2 mg PO TID 90 days loratadine 10 mg PO DAILY 30 days menthol-zinc oxide 0.44-20.6 % (Calmoseptine) 1 appl topical QID 30 days multivitamin 1 tab PO DAILY 90 days ondansetron HCl 8 mg PO QID 30 days pantoprazole 40 mg PO DAILY potassium chloride ER (Klor-Con M) 20 mEq PO DAILY 30 days prednisone 5 mg PO Q OTHER DAY 30 days [pull ups As directed] [right hand brace As directed] simethicone (Gas Relief (simethicone)) 125 mg PO TID PRN 30 days sitz bath ([employer] Sitz Bath) As directed thiamine HCl (vitamin B1) 100 mg PO DAILY 90 days tramadol 50 mg PO Q8H 30 days walker (Ultra-Light Rollator misc) As directed [washable bedpads As directed] HPI Comments Details: The patient is a 64 y/o woman with a history of underlying COPD and tobacco dependency. She continues on the Anoro. Does not appear to be effective for her. Still complains of productive cough and dyspnea. Aqor-ju-diizrbye severity. She did better on the Trelegy. However, her insurance would not cover. Therefore, we will add Arnuity. She has been having issues with significant back pain. Her surgery currently on hold. She is having significant GI issues with active GI bleeding. She will be calling her anodic treater today for an earlier assessment. We did review her CT scan of the chest that she had this June 2018 demonstrating stable lymphadenopathy and pulmonary nodules. She did have CT scan of the chest while at [facility] demonstrating small pulmonary nodules are stable from 2011. Will see if we can get her in to the lung cancer screening program next year. In the meantime the patient also had pulmonary function studies demonstrating a normal FEV1 suggesting that she has chronic bronchitis with no definitive obstruction on spirometry. There she did have a CT scan of the chest demonstrating again the hiatal hernia dilated esophagus in addition to bilateral airspace disease the bases suggesting aspiration pneumonia and pneumonitis. 07/03/2023 the patient is here for pulmonary follow-up visit. The patient is complaining significant shortness of breath. Moderate severity. Hard to do any activities of daily living. She is suffering at home where she does not have any air conditioning. Her home feels like 100 degrees the patient states. Is very hard to breathe. She was supposed to have an air conditioner placed ho wever has not yet been placed. The patient is very upset. in the meantime we did have ago for 6 minutes walk test. The patient was very dyspneic with a dyspnea score of 8/10. She had to sit down. Her oxygen levels were 98-99%. She did not qualify for any oxygen supplementation. The patient also had a spirometry. She did have pre and post numbers. It appears that the 2nd spirometry the patient is lung capacity decreased. It may have been effort related or fatigue related or neuromuscular disease. Still no evidence of any obstructive airway disease which is reassuring. Also no significant response to bronchodilators noted. She does have a mild restrictive defect. The patient has been on Trelegy inhaler. At this point she does not need additional medications although she which she does need is an air conditioner. She is in participating in the lung cancer screening program. She will be having her yearly CT scan. 01/02/2024 the patient is here for a pulmonary follow-up visit. She has had a very eventful several months. Back in the fall she did go to [place] was evaluated for her hernia. She did undergo an extensive abdominal hernia repair. Ultimately complicated by wound infection in intra-abdominal abscess. She required multiple drains and antibiotics. They were able to clear the infection good. Down she is recovering from that and still having some abdominal discomfort. The 1 good thing is that she did quit smoking. She feels better from a respiratory status. Her chest congestion is improved. Her oxygenation is also improved. She does have the inhalers that she does use with good effect. She has not required her rescue inhaler. The last CT scan of the chest that she has had was from 2021. No evidence of any concerning nodules. She did have some slight pericardial effusion. She had been participating in the lung cancer screening program. At some point she needs to go back in the program although right now she is dealing with her significant GI issue. The patient will follow-up in 8-10 months if the patient develops any worsening symptoms prior to that she will call for an earlier assessment. 09/03/2024 the patient is here for a pulmonary follow-up visit. Overall the patient has been doing okay at least from a respiratory status. She has been working on her GI issues. She recently did have a CT scan of the abdomen at [facility] and was admitted briefly. She has a new ventral hernia. Currently she is doing little better from that standpoint. She does have a worsening cough. She is concerned she is developing bronchitis. The phlegm is yellowish in color. She has been using the Trelegy inhaler with good effect. The patient has not had a lung cancer screening program. She needs to go back on the program. Will refer to our program here. Her last CT scan believe was in 2021. She will continue with the Trelegy inhaler. No need for prednisone right now she is not having any significant wheezing. But has not her short course of antibiotics to prevent her from getting worsening bronchitis. The patient still working with her smoking issues. She is trying to cut down further. Will follow-up in 6-8 months. If he has any issues prior to that she will call for an earlier assessment. [facility] Medical History Major depressive disorder, recurrent severe without psychotic features Hypokalemia Flat feet, bilateral Chronic post-traumatic stress disorder (PTSD) Screening for breast cancer Annual physical exam Pulmonary nodules Chronic respiratory failure COPD (chronic obstructive pulmonary disease) Abdominal hernia Right lumbar radiculopathy Osteopenia Surgical History H/O hernia repair History of colectomy History of eye surgery History of colonoscopy History of umbilical hernia repair History of bladder surgery History of total abdominal hysterectomy and bilateral salpingo-oophorectomy History of cholecystectomy History of appendectomy History of tonsillectomy Family History Father Renal cell cancer Prostate cancer Leukemia Diabetes Hypertension Mother Hypertension Paternal Grandmother Colon cancer Maternal Grandfather Myocardial infarction Sister Lupus Daughter In good health Other Mental health disorder Social History (Updated 09/03/24 @ 10:48 by Betty Tsang LPN) Housing: Apartment Alcohol intake: never Patient Tobacco Use Status: Current someday Tobacco user Tobacco use type: Cigarette Cigarettes Per Day: 6 Years Smoked: 42 years e-Cigarette/Vaping Use: Never Used service: No Current occupational status: disabled Current occupation: right hand dominant Cognitive needs: Yes (cane/walker) Hearing needs: No Vision needs: Yes (glasses) Review of Systems Const Denies night sweats ENT Denies change in voice, Denies lip swelling, Denies mouth pain, Reports nasal congestion, Reports nasal discharge and Denies tongue swelling Card Denies chest pain and Reports dyspnea on exertion Resp Reports cough, Reports dyspnea on exertion and Denies wheezing GI Reports as per HPI and Reports abdominal pain Musc Denies no additional complaints Neuro Denies Neuro-related abnormal movements Psych Denies no additional complaints Patrick/Lymph Denies easy bleeding and Denies lymphadenopathy Aller/Immun Denies lip swelling, Denies tongue swelling and Denies wheezing Physical Exam Vital Signs: Last Vital Signs Pulse 82 09/03/24 10:45 BP 124/62 09/03/24 10:45 Pulse Ox 99 09/03/24 10:45 Oxygen Delivery Method Room Air 09/03/24 10:45 BMI result Body Mass Index 37.1 Const General: alert Chest Chest palpation & inspection: normal inspection of the chest Resp Effort & Inspection: normal respiratory effort Auscultation: diminished lung sounds Cardio Rate: regular rate Rhythm: regular rhythm Heart sounds: S1 normal heart sound present and S2 normal heart sound present GI Palpation (GI): Soft to palpation General: Yes no CVA tenderness Back/Spine/Pelvis Back: no CVA tenderness Skin General skin exam: no rashes or lesions noted Extrem General: Yes no clubbing, cyanosis or edema Quality Reporting (2019) Adult ([facility] 138/12/18/68) Smoking risk assessment performed?: Yes Patient Tobacco Use Status: Current someday Tobacco user Assessment & Plan Assessment & Plan (1) COPD (chronic obstructive pulmonary disease): Code(s): J44.9 - Chronic obstructive pulmonary disease, unspecified Category: Medical Qualifiers: COPD type: emphysema Emphysema type: centrilobular Qualified Code(s): J43.2 - Centrilobular emphysema Plan: Continue respiratory therapy (2) Chronic respiratory failure: Code(s): J96.10 - Chronic respiratory failure, unspecified whether with hypoxia or hypercapnia Category: Medical Qualifiers: Respiratory failure complication: hypoxia Qualified Code(s): J96.11 - Chronic respiratory failure with hypoxia Plan: The patient does not require oxygen supplementation with activity at this time. (3) Pulmonary nodules: Code(s): R91.8 - Other nonspecific abnormal finding of lung field Category: Medical (4) Smoker: Code(s): F17.200 - Nicotine dependence, unspecified, uncomplicated Category: Social Hx Plan Continue Trelegy DUSTIN as needed LDCT F/U8-12 months Orders: Referrals Lung Cancer Screening Referral F17.200 - Nicotine dependence, unspecified, uncomplicated Medications: New azithromycin 500 mg PO DAILY 5 tabs 0RF 5 days Changed From nvqjdpvkdti-nnqtzduhe-mmfitsei 100-62.5-25 mcg (Trelegy Ellipta) 1 ea PO DAILY 60 ea 0RF J44.9 - Chronic obstructive pulmonary disease, unspecified To bzoyuynojax-auofyawin-owkieigu 100-62.5-25 mcg (Trelegy Ellipta) 1 ea inhalation DAILY 60 ea 11RF 30 days J44.9 - Chronic obstructive pulmonary disease, unspecified Refilled albuterol sulfate 90 mcg/actuation 2 inhalations inhalation Q6H PRN 18 grams 12RF shortness of breath or wheezing 30 days J44.9 - Chronic obstructive pulmonary disease, unspecified Discontinued escitalopram oxalate (Lexapro) Discontinued Reason: Doctor's Order 10 mg PO DAILY 30 tabs 1RF Coding Level of Care Code Est Pt Level 4 (57032) Diagnoses Centrilobular emphysema J43.2 COPD type: emphysema Emphysema type: centrilobular Chronic respiratory failure with hypoxia J96.11 Respiratory failure complication: hypoxia Pulmonary nodules R91.8 Smoker F17.200 Time Spent (min) 16
[2024-09-03 10:45] VITALS: BP 124/62; PULSE 82; O2SAT 99; BMI 37.1
== END 2024-09-03 10:57 | disposition home or self-care (01) ==
PROVIDERS: PCP Physician Assistant; Visit Provider Hospitalist
DX: J43.2 Centrilobular emphysema (principal); J96.11 Chronic respiratory failure with hypoxia; R91.8 Other nonspecific abnormal finding of lung field; F17.200 Nicotine dependence, unspecified, uncomplicated
CPT/HCPCS: 99214

== ENCOUNTER → 2024-09-03 10:39 | Outpatient (BNVA) | payer OTHER, SELFPAY | PROVIDERS: PCP Physician Assistant; Visit Provider Hospitalist | DX: J43.2 Centrilobular emphysema (principal); J96.11 Chronic respiratory failure with hypoxia; R91.8 Other nonspecific abnormal finding of lung field; F17.210 Nicotine dependence, cigarettes, uncomplicated | CPT/HCPCS: 99212 ==

== ENCOUNTER 2024-09-13 09:48 | Outpatient (AMB) | payer OTHER, SELFPAY ==
[2024-09-13 10:56] VITALS: BP 112/74; PULSE 108; TEMP 36.2; O2SAT 94; BMI 37.9
--- NOTE | 2024-09-13 10:56 | MHC.OFFWIV ---
Intake Vital Signs 09/13/24 10:56 Height 5 ft 3 in Weight 214 lb BMI 37.9 BP 112/74 Blood Pressure Location Lt brachial Position Sitting Pulse 108 H Pulse Source Pulse Oximeter Temp 97.2 F Temp Source Temporal Artery Scan Pulse Oximetry (%) 94 Oxygen Delivery Method Room Air Intake Visit Reasons: EP ? ear infection Intake Note: Pt presents to the office today for c/o ear pain x3 days. Pt states the right is worse than her left. Pt states she also has a sore throat. Patient Tobacco Use Status: Current someday Tobacco user Allergies baclofen Allergy (Severe, Verified 09/13/24 10:57) GI upset dexamethasone Allergy (Severe, Verified 09/13/24 10:57) Vomiting doxycycline Allergy (Severe, Verified 09/13/24 10:57) Vomiting naproxen [Aleve] Allergy (Severe, Verified 09/13/24 10:57) Vomiting penicillin V Allergy (Severe, Verified 09/13/24 10:57) vomitting Sulfa (Sulfonamide Antibiotics) Allergy (Severe, Verified 09/13/24 10:57) Vomiting ibuprofen [Advil] Allergy (Intermediate, Verified 09/13/24 10:57) Vomiting codeine [Codeine] Allergy (Mild, Verified 09/13/24 10:57) VOMITING aspirin [ASPIRIN] Adverse Reaction (Severe, Verified 09/13/24 10:57) VOMITING HPI EP ? ear infection HPI Details This note is constructed using voice recognition software. While every effort has been made to ensure accuracy, heavy equipment sales associate errors may have been included. The patient is a 64 year old female who presents to the clinic today with right-sided ear pain, scratchy throat. She denies fever, chills, shortness of breath. She reports that she has pain primarily in her right ear which has led her to have some difficulty hearing. She has had ear infections in the past, and feels that this might be an ear infection. She does have a history of COPD, and is a current smoker. REPLACED BY [facility] Medical History Major depressive disorder, recurrent severe without psychotic features Hypokalemia Flat feet, bilateral Chronic post-traumatic stress disorder (PTSD) Screening for breast cancer Annual physical exam Pulmonary nodules Chronic respiratory failure COPD (chronic obstructive pulmonary disease) Abdominal hernia Right lumbar radiculopathy Osteopenia Surgical History H/O hernia repair History of colectomy History of eye surgery History of colonoscopy History of umbilical hernia repair History of bladder surgery History of total abdominal hysterectomy and bilateral salpingo-oophorectomy History of cholecystectomy History of appendectomy History of tonsillectomy Family History Father Renal cell cancer Prostate cancer Leukemia Diabetes Hypertension Mother Hypertension Paternal Grandmother Colon cancer Maternal Grandfather Myocardial infarction Sister Lupus Daughter In good health Other Mental health disorder Social History (Updated 09/03/24 @ 10:48 by Betty Tsang LPN) Housing: Apartment Alcohol intake: never Patient Tobacco Use Status: Current someday Tobacco user Tobacco use type: Cigarette Cigarettes Per Day: 6 Years Smoked: 42 years e-Cigarette/Vaping Use: Never Used service: No Current occupational status: disabled Current occupation: right hand dominant Cognitive needs: Yes (cane/walker) Hearing needs: No Vision needs: Yes (glasses) Review of Systems Const All systems reviewed & are unremarkable except as noted in HPI and below Physical Exam Vital Signs: Last Vital Signs Temp 97.2 F 09/13/24 10:56 Pulse 108 H 09/13/24 10:56 BP 112/74 09/13/24 10:56 Pulse Ox 94 09/13/24 10:56 Oxygen Delivery Method Room Air 09/13/24 10:56 BMI result Body Mass Index 37.9 Const General: cooperative, healthy appearing, comfortable and no acute distress Orientation/consciousness: patient oriented x3 Limitations: no limitations HEENT Head: Yes normal to inspection Ears: hearing grossly normal bilaterally, external ears normal and TM abnormal retracted General nose exam: Normal external nose present, No nasal discharge present and Abnormal mucous membranes and turbinates present boggy and pale Face and sinus: Yes normal facial exam and Yes sinuses nontender Mouth: Normal oral and palatal mucosa present and moist mucous membranes Throat: Yes tonsils normal, Yes uvula midline, Yes posterior oropharynx abnormal (Erythema), Yes postnasal drainage and Yes cobblestoning Eyes General: appearance normal, both eyes and all related structures Neck Neck: Yes normal visual inspection Resp Effort & Inspection: normal respiratory effort, able to speak in complete sentences, Actively coughing, no respiratory distress, not tachypneic, no tripod positioning and no use of accessory muscles Auscultation: clear to auscultation bilaterally Cardio Rate: regular rate Rhythm: regular rhythm Heart sounds: normal S1 and S2 Skin General skin exam: no rashes or lesions noted Neuro General: patient oriented x3 Extrem General: Yes normal to inspection and Yes no clubbing, cyanosis or edema Results AMB Rapid Strep AMB Rapid Strep Negative Last Edit by Kayla Ruiz CMA on 09/13/24 11:25 Assessment & Plan Assessment & Plan (1) Allergic rhinitis: Code(s): J30.9 - Allergic rhinitis, unspecified Qualifiers: Allergic rhinitis trigger: unspecified Allergic rhinitis seasonality: unspecified Qualified Code(s): J30.9 - Allergic rhinitis, unspecified Plan: Supportive measures encouraged and reviewed. Advised patient to try a Flonase nasal spray and second-generation antihistamine such as Zyrtec, Claritin, Freda or similar. Advised consideration of sinus rinse if needed. Advised patient to follow up with primary care provider with worsening or failure to resolve. Plan See above for full details and plan. Orders: Orders AMB Rapid Strep Screen Today Z13.9 - Encounter for screening, unspecified Medications: New fluticasone propionate 50 mcg/actuation administer into each nostril 1 spray intranasal DAILY 16 grams 0RF Coding Level of Care Code Est Pt Level 3 (23722) Diagnoses Allergic rhinitis, unspecified seasonality, unspecified trigger J30.9 Allergic rhinitis trigger: unspecified Allergic rhinitis seasonality: unspecified
== END 2024-09-13 11:48 | disposition home or self-care (01) ==
PROVIDERS: PCP Physician Assistant; Visit Provider Registered Nurse
DX: J30.9 Allergic rhinitis, unspecified (principal); Z13.9 Encounter for screening, unspecified

== ENCOUNTER → 2024-09-13 09:48 | Outpatient (BNVA) | payer OTHER, SELFPAY | PROVIDERS: PCP Physician Assistant; Visit Provider Registered Nurse | DX: J30.9 Allergic rhinitis, unspecified (principal) | CPT/HCPCS: 87880; 99212 ==

== ENCOUNTER → 2024-10-01 10:35 | Outpatient (BNVA) | payer OTHER, SELFPAY | PROVIDERS: PCP Physician Assistant; Visit Provider Physician Assistant ==

== ENCOUNTER 2024-10-11 11:22 | Outpatient (AMB) | payer OTHER, SELFPAY ==
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
== END 2024-10-11 11:57 | disposition home or self-care (01) ==
LOC: HO.HOP 11:22
PROVIDERS: PCP Physician Assistant; Visit Provider Clinical Nurse Specialist Psychiatric/Mental Health
DX: F60.3 Borderline personality disorder (principal); F41.1 Generalized anxiety disorder; F41.0 Panic disorder [episodic paroxysmal anxiety]; F33.9 Major depressive disorder, recurrent, unspecified
CPT/HCPCS: 99214

== ENCOUNTER → 2024-10-11 11:22 | Outpatient (BNVA) | payer OTHER, SELFPAY | PROVIDERS: PCP Physician Assistant; Visit Provider Clinical Nurse Specialist Psychiatric/Mental Health | DX: F60.3 Borderline personality disorder (principal); F41.1 Generalized anxiety disorder; F41.0 Panic disorder [episodic paroxysmal anxiety]; F33.9 Major depressive disorder, recurrent, unspecified; Z71.89 Other specified counseling | CPT/HCPCS: 99212 ==

== ENCOUNTER 2024-10-25 14:15 | Outpatient (AMB) | payer OTHER, SELFPAY ==
[2024-10-25 14:47] VITALS: BP 118/70; PULSE 92; O2SAT 91; BMI 40.0
--- NOTE | 2024-10-25 14:47 | A.OFFPC_ITS ---
Vital Signs 10/25/24 14:47 Height 5 ft 3 in Weight 226 lb BMI 40.0 BP 118/70 Blood Pressure Location Rt brachial Position Sitting Pulse 92 Pulse Source Pulse Oximeter Pulse Oximetry (%) 91 L Oxygen Delivery Method Room Air Intake Visit Reasons: f/u pain managment Cnc Supervisor Required: No Accompanied by: Self / Same As Patient Allergies baclofen Allergy (Severe, Verified 10/25/24 14:59) GI upset dexamethasone Allergy (Severe, Verified 10/25/24 14:59) Vomiting doxycycline Allergy (Severe, Verified 10/25/24 14:59) Vomiting naproxen [Aleve] Allergy (Severe, Verified 10/25/24 14:59) Vomiting penicillin V Allergy (Severe, Verified 10/25/24 14:59) vomitting Sulfa (Sulfonamide Antibiotics) Allergy (Severe, Verified 10/25/24 14:59) Vomiting ibuprofen [Advil] Allergy (Intermediate, Verified 10/25/24 14:59) Vomiting codeine [Codeine] Allergy (Mild, Verified 10/25/24 14:59) VOMITING aspirin [ASPIRIN] Adverse Reaction (Severe, Verified 10/25/24 14:59) VOMITING Medication List - Last Reconciled 10/25/24 by Jigar Patel PA-C acetaminophen ER 650 mg PO Q12H PRN 30 days albuterol sulfate 90 mcg/actuation 2 inhalations inhalation Q6H PRN 30 days apixaban (Eliquis) 5 mg PO BID 30 days cane As directed cariprazine 3 mg PO BEDTIME chair, wheel (Wheel chair) As directed cholecalciferol (vitamin D3) 25 mcg PO DAILY cholecalciferol (vitamin D3) 50 mcg PO DAILY 90 days diaper,brief,adult,disposable As directed size large diazepam 10 mg (2 x 5 mg) PO BID diclofenac sodium 3% 1 appl topical BID 4 weeks diphenoxylate-atropine 2.5-0.025 mg 6 tabs orally daily; disposable gloves As directed escitalopram oxalate (Lexapro) 20 mg PO DAILY fluticasone propionate 50 mcg/actuation 1 spray intranasal DAILY [id number]-glqptglld-lcowgrqu 100-62.5-25 mcg (Trelegy Ellipta) 1 ea inhalation DAILY 30 days furosemide 40 mg PO BID gloves, latex with aloe vera (Aloe Vera Latex Gloves) 1 ea miscellaneous DAILY 30 days [hand held shawer spray As directed] levothyroxine 50 mcg PO DAILY lidocaine 5% 1 appl topical DAILY 30 days knncba-pqblwkmu-ttdhpiz 36,000-114,000- 180,000 unit (Creon) caps PO lisinopril 30 mg PO DAILY loperamide 2 mg PO TID 90 days loratadine 10 mg PO DAILY 30 days menthol-zinc oxide 0.44-20.6 % (Calmoseptine) 1 appl topical QID 30 days multivitamin 1 tab PO DAILY 90 days ondansetron HCl 8 mg PO QID 30 days pantoprazole 40 mg PO DAILY potassium chloride ER (Klor-Con M) 20 mEq PO DAILY 30 days potassium chloride ER 20 mEq PO DAILY [pull ups As directed] [right hand brace As directed] simethicone (Gas Relief (simethicone)) 125 mg PO TID PRN 30 days sitz bath ([employer] Sitz Bath) As directed thiamine HCl (vitamin B1) 100 mg PO DAILY 90 days tizanidine 2 mg PO BID PRN 15 days walker (Ultra-Light Rollator misc) As directed [washable bedpads As directed] Tobacco use date assessed: 08/06/24 Dental Screening Dental Screen Date: 11/12/23 HPI f/u pain managment HPI Details The patient is a 64-year-old female presenting with abdominal pain and gastrointestinal symptoms. The symptoms reportedly stem from pancreatic insufficiency and ongoing pancreatitis. The patient describes persistent, severe abdominal pain radiating to the back, exacerbated by eating, and accompanied by frequent diarrhea described as malodorous and fatty, suggestive of malabsorption. The symptoms have been ongoing with little relief from current medication regimens. The patient also reports a history of chronic diarrhea that correlates with her diagnosis of pancreatic insufficiency, leading to significant weight loss and decreased functional status, affecting daily living activities. She has concurrent issues with her abdominal hernia, for which there is a presence of tissue, necessitating surgical evaluation. The hernia complicates her condition due to its increasing size and potential complications, including intestinal obstruction. Her medical history also includes hypercholesterolemia, last checked with low cholesterol levels at 106 and LDL at 35, which was managed with atorvastatin until it was discontinued in March. She has been advised to resume treatment for high cholesterol as recent evaluations suggest elevated levels. She has longstanding hypertension, managed with lisinopril, and osteoarthritis affecting her hands, causing significant pain and limiting functionality. She reports she needs a prior Auth for diclofenac cream that has helped her arthritic pain in her hands. In addition, the patient requires dental intervention for a retained tooth following dental extraction planned for the upcoming week. Current medication includes Creon for pancreatic insufficiency and blood pressure management with lisinopril. Her pain management regimen includes oxycodone due to intolerance to alternatives and severe pain levels. The patient is also being monitored for potential lung cancer, with a screening scheduled. [facility] Medical History (Updated 10/25/24 @ 15:13 by Jigar Patel PA-C) Ileostomy present High output ileostomy History of pulmonary embolism Congestive heart failure HTN (hypertension) HLD (hyperlipidemia) Major depression, recurrent, chronic Generalized anxiety disorder with panic attacks Bipolar disorder, mixed Nicotine dependence, cigarettes, uncomplicated Hypokalemia Flat feet, bilateral Chronic post-traumatic stress disorder (PTSD) Pulmonary nodules Chronic respiratory failure COPD (chronic obstructive pulmonary disease) Abdominal hernia Right lumbar radiculopathy Osteopenia Surgical History History of tonsillectomy History of appendectomy History of cholecystectomy History of total abdominal hysterectomy and bilateral salpingo-oophorectomy History of bladder surgery History of colonoscopy History of umbilical hernia repair History of ileostomy History of colectomy History of hernia repair History of resection of small bowel History of ventral hernia repair History of eye surgery Family History Father Renal cell cancer Prostate cancer Leukemia Diabetes Hypertension Mother Hypertension Paternal Grandmother Colon cancer Maternal Grandfather Myocardial infarction Sister Lupus Daughter In good health Other Mental health disorder Social History Housing: Apartment Alcohol intake: never Patient Tobacco Use Status: Current someday Tobacco user Tobacco use type: Cigarette Cigarettes Per Day: 6 Years Smoked: 42 years e-Cigarette/Vaping Use: Never Used service: No Current occupational status: disabled Current occupation: right hand dominant Cognitive needs: Yes (cane/walker) Hearing needs: No Vision needs: Yes (glasses) Questionnaire Thrive Questionnaire Date Thrive assessed: 11/12/23 Are you currently unemployed and looking for a job?: No EMILY-7 AMB Questionnaire EMILY-7 Date EMILY - 7 assessed: 11/12/23 Source: Developed by Drs. Enoch Vallecillo, Anum Jung, Nathan Tiwari and colleagues, with an educational clifton from [employer]. Review of Systems Const Denies headache(s) Eyes Denies loss of vision ENT Denies vertigo, Denies dizziness, Denies headache(s) and Denies sore throat Card Denies chest pain, Denies leg edema and Denies lightheadedness Resp Denies cough, Denies hemoptysis and Denies wheezing GI Denies abdominal pain, Denies melena, Reports bloating, Reports change in stool character, Denies constipation, Reports diarrhea, Reports loose stools and Reports vomiting Denies urinary frequency, Denies dysuria and Denies urinary urgency Musc Denies arthralgias, Denies joint swelling, Denies numbness and Denies tingling Neuro Denies Abnormal speech present, Denies behavioral changes, Denies vertigo, Denies dizziness, Denies headache(s), Denies loss of vision, Denies memory loss, Denies numbness and Denies tingling Psych Denies anxiety, Denies behavioral changes, Denies depression, Denies memory loss and Denies panic attacks Patrick/Lymph Denies easy bleeding and Denies easy bruising Aller/Immun Denies wheezing Physical exam (Primary Care) Vital Signs: Last Vital Signs Pulse 92 10/25/24 14:47 BP 118/70 10/25/24 14:47 Pulse Ox 91 L 10/25/24 14:47 Oxygen Delivery Method Room Air 10/25/24 14:47 BMI result Body Mass Index 40.0 Tobacco/Smoking Status: Tobacco use Status Tobacco use date assessed 08/06/24 10/25/24 14:47 Patient Tobacco Use Status Current someday Tobacco 10/25/24 14:47 Tobacco use type Cigarette 10/25/24 14:47 e-Cigarette/Vaping Use Never Used 10/25/24 14:47 Thrive Assessment: Date of Thrive Assessment Date Thrive assessed 11/12/23 10/25/24 14:47 Const General: healthy appearing, no acute distress, alert and awake Nutritional Appearance: well nourished Orientation/consciousness: oriented to person, oriented to place and oriented to time HENMT Ears: TM's normal bilaterally General nose exam: Normal nasal mucous membranes and turbinates present Eyes Conjunctivae: conjunctivae normal Sclerae: sclerae normal Pupils: Equal, round and reactive pupils present Neck Neck: Yes no lymphadenopathy and Yes no JVD Thyroid: Thyroid normal Carotids: no bruits Resp Effort & Inspection: normal respiratory effort and not tachypneic Auscultation: no crackles, no rales, no rhonchi and no wheezes Cardio Rate: regular rate Rhythm: regular rhythm Heart sounds: no murmurs and normal S1 and S2 GI Other: SOME NOTED ABDOMINAL DISTENTION Inspection: Yes distended Palpation (GI): Soft to palpation, Tenderness to palpation present (GI), no hepatomegaly and no splenomegaly Auscultation: normal bowel sounds Skin General skin exam: no rashes or lesions noted and dry skin Neuro General: oriented to person, oriented to place and oriented to time Cranial nerves: Yes Equal, round and reactive pupils present Speech: No Abnormal speech present Gait exam (Neuro): Normal gait present Motor exam (neuro): no tremor noted Extrem Right upper extremity: full ROM Left upper extremity: full ROM Right lower extremity: full ROM; no edema Left lower extremity: full ROM; no edema Psych Mental Status: mental status grossly normal Speech and movement: Normal speech and movement present Affect: normal affect Attitude: cooperative Thought process: Normal thought process present Coding Level of Care Code Est Pt Level 4 (25657) Diagnoses Pancreatic insufficiency K86.89 Mixed hyperlipidemia E78.2 Hyperlipidemia type: mixed hyperlipidemia Essential hypertension I10 Hypertension type: essential hypertension Incisional hernia with obstruction but no gangrene K43.0 Hernia type: incisional Obstruction and gangrene presence: with obstruction but without gangrene Assessment & Plan Assessment & Plan (1) Pancreatic insufficiency: Code(s): K86.89 - Other specified diseases of pancreas Category: Medical Plan: I discussed the ongoing management challenges of the patient's pancreatic insufficiency, noting the inadequate response to Creon and the potential need for alternative treatment regimens. Surgical management of her hernia was advised, considering the presence of necrotic tissue, and I emphasized consultation services' role in determining the best course of action. Of note she has been started on Creon though has not been effective on reducing her stool frequency and abdominal pain and bloating. She will be following up with her general admissions rn to continue discussion about treating her pancreatic issue. (2) HLD (hyperlipidemia): Code(s): E78.5 - Hyperlipidemia, unspecified Category: Medical Qualifiers: Hyperlipidemia type: mixed hyperlipidemia Qualified Code(s): E78.2 - Mixed hyperlipidemia Plan: Patient was thought to have very elevated total cholesterol and LDL at most recent hospitalization. She has not been taking her atorvastatin. Unclear what has happened here though will restart her atorvastatin 20 mg. Goal LDL to be below 100 (3) HTN (hypertension): Code(s): I10 - Essential (primary) hypertension Category: Medical Qualifiers: Hypertension type: essential hypertension Qualified Code(s): I10 - Essential (primary) hypertension Plan: Patient's blood pressure acceptable today in office. Will continue her current dose of antihypertensive medication with goal blood pressure to remain below 140/90. (4) Abdominal hernia: Code(s): K46.9 - Unspecified abdominal hernia without obstruction or gangrene Category: Medical Qualifiers: Hernia type: incisional Obstruction and gangrene presence: with obstruction but without gangrene Qualified Code(s): K43.0 - Incisional hernia with obstruction, without gangrene Plan: Patient was found to have recurrent abdominal hernia. She is considering yet another hernia repair in [place]. Continues to have abdominal pain bloating and again was found to have some kind of a pancreatic insufficiency which has also been causing abdominal pain and bloating. She reports her pain is almost intolerable and she did find that oxycodone was helpful. We did discuss the habit-forming nature and dependency to opiates and she understands and will use oxycodone 10 mg on an as needed basis. Medications: New atorvastatin 20 mg PO DAILY 90 days 90 tabs 1RF E78.2 - Mixed hyperlipidemia oxycodone Partial Fill upon patient request. 10 mg PO Q8H 7 days PRN 21 tabs 0RF pain K86.89 - Other specified diseases of pancreas Refilled lisinopril 30 mg PO DAILY 90 tabs 0RF diclofenac sodium 3% 1 appl topical BID 4 weeks 100 grams 3RF M19.041 - Primary osteoarthritis, right hand
== END 2024-10-25 15:29 | disposition home or self-care (01) ==
PROVIDERS: PCP Internal Medicine; Visit Provider Physician Assistant
DX: K86.89 Other specified diseases of pancreas (principal); E78.2 Mixed hyperlipidemia; I10 Essential (primary) hypertension; K43.0 Incisional hernia with obstruction, without gangrene

== ENCOUNTER → 2024-10-25 14:15 | Outpatient (BNVA) | payer OTHER, SELFPAY | PROVIDERS: PCP Internal Medicine; Visit Provider Physician Assistant | DX: K86.89 Other specified diseases of pancreas (principal); E78.2 Mixed hyperlipidemia; I10 Essential (primary) hypertension; K43.0 Incisional hernia with obstruction, without gangrene | CPT/HCPCS: 99212 ==

== ENCOUNTER 2024-11-15 09:56 | Outpatient (AMB) | payer OTHER, SELFPAY ==
[2024-11-15 10:19] VITALS: BP 122/62; PULSE 77; O2SAT 97
--- NOTE | 2024-11-15 10:19 | A.OFFVIS_ITS ---
Vital Signs 11/15/24 10:19 BP 122/62 Blood Pressure Location Lt brachial Position Sitting Pulse 77 Pulse Source Pulse Oximeter Pulse Oximetry (%) 97 Oxygen Delivery Method Room Air Intake Visit Reasons: 6MWT Allergies baclofen Allergy (Severe, Verified 11/15/24 10:19) GI upset dexamethasone Allergy (Severe, Verified 11/15/24 10:19) Vomiting doxycycline Allergy (Severe, Verified 11/15/24 10:19) Vomiting naproxen [Aleve] Allergy (Severe, Verified 11/15/24 10:19) Vomiting penicillin V Allergy (Severe, Verified 11/15/24 10:19) vomitting Sulfa (Sulfonamide Antibiotics) Allergy (Severe, Verified 11/15/24 10:19) Vomiting ibuprofen [Advil] Allergy (Intermediate, Verified 11/15/24 10:19) Vomiting codeine [Codeine] Allergy (Mild, Verified 11/15/24 10:19) VOMITING aspirin [ASPIRIN] Adverse Reaction (Severe, Verified 11/15/24 10:19) VOMITING Medication List - Last Reconciled 11/15/24 by Isha Solitario LPN acetaminophen ER 650 mg PO Q12H PRN 30 days albuterol sulfate 90 mcg/actuation 2 inhalations inhalation Q6H PRN 30 days apixaban (Eliquis) 5 mg PO BID 30 days atorvastatin 20 mg PO DAILY 90 days cane As directed cariprazine 3 mg PO BEDTIME cefuroxime axetil 250 mg PO BID 5 days chair, wheel (Wheel chair) As directed cholecalciferol (vitamin D3) 25 mcg PO DAILY cholecalciferol (vitamin D3) 50 mcg PO DAILY 90 days diaper,brief,adult,disposable As directed size large diazepam 10 mg (2 x 5 mg) PO BID diclofenac sodium 3% 1 appl topical BID 4 weeks diphenoxylate-atropine 2.5-0.025 mg 6 tabs orally daily; disposable gloves As directed escitalopram oxalate (Lexapro) 20 mg PO DAILY fluticasone propionate 50 mcg/actuation 1 spray intranasal DAILY glmzxfubquq-btxrnzlbf-tgisdyfd 100-62.5-25 mcg (Trelegy Ellipta) 1 ea inhalation DAILY 30 days furosemide 40 mg PO BID gloves, latex with aloe vera (Aloe Vera Latex Gloves) 1 ea miscellaneous DAILY 30 days [hand held shawer spray As directed] levothyroxine 50 mcg PO DAILY lidocaine 5% 1 appl topical DAILY 30 days lxcjvh-jwbqmlus-dyvscra 36,000-114,000- 180,000 unit (Creon) caps PO lisinopril 30 mg PO DAILY loperamide 2 mg PO TID 90 days loratadine 10 mg PO DAILY 30 days menthol-zinc oxide 0.44-20.6 % (Calmoseptine) 1 appl topical QID 30 days multivitamin 1 tab PO DAILY 90 days ondansetron HCl 8 mg PO QID 30 days oxycodone 10 mg PO Q8H PRN 7 days pantoprazole 40 mg PO DAILY potassium chloride ER (Klor-Con M) 20 mEq PO DAILY 30 days potassium chloride ER 20 mEq PO DAILY [pull ups As directed] [right hand brace As directed] simethicone (Gas Relief (simethicone)) 125 mg PO TID PRN 30 days sitz bath ([employer] Sitz Bath) As directed thiamine HCl (vitamin B1) 100 mg PO DAILY 90 days tizanidine 2 mg PO BID PRN 15 days walker (Ultra-Light Rollator misc) As directed [washable bedpads As directed] [facility] Medical History (Updated 11/03/24 @ 14:39 by Jigar Patel PA-C) Ileostomy present High output ileostomy History of pulmonary embolism Congestive heart failure HTN (hypertension) HLD (hyperlipidemia) Major depression, recurrent, chronic Generalized anxiety disorder with panic attacks Bipolar disorder, mixed Nicotine dependence, cigarettes, uncomplicated Hypokalemia Flat feet, bilateral Chronic post-traumatic stress disorder (PTSD) Pulmonary nodules Chronic respiratory failure COPD (chronic obstructive pulmonary disease) Abdominal hernia Right lumbar radiculopathy Osteopenia Surgical History History of tonsillectomy History of appendectomy History of cholecystectomy History of total abdominal hysterectomy and bilateral salpingo-oophorectomy History of bladder surgery History of colonoscopy History of umbilical hernia repair History of ileostomy History of colectomy History of hernia repair History of resection of small bowel History of ventral hernia repair History of eye surgery Family History Father Renal cell cancer Prostate cancer Leukemia Diabetes Hypertension Mother Hypertension Paternal Grandmother Colon cancer Maternal Grandfather Myocardial infarction Sister Lupus Daughter In good health Other Mental health disorder Social History Housing: Apartment Alcohol intake: never Patient Tobacco Use Status: Current someday Tobacco user Tobacco use type: Cigarette Cigarettes Per Day: 6 Years Smoked: 42 years e-Cigarette/Vaping Use: Never Used service: No Current occupational status: disabled Current occupation: right hand dominant Cognitive needs: Yes (cane/walker) Hearing needs: No Vision needs: Yes (glasses) Physical Exam Vital Signs: Last Vital Signs Pulse 77 11/15/24 10:19 BP 122/62 11/15/24 10:19 Pulse Ox 97 11/15/24 10:19 Oxygen Delivery Method Room Air 11/15/24 10:19 Office Procedures 6 Minute Walk Time:: 10:00 SPO2 % at rest: 97 Pulse at rest: 77 SPO2 % during excercise: 93 Pulse during excercise: 96 SPO2 % after excercise: 94 Pulse after excercise: 92 Distance in yards walked: 300 Kaylee Score: 0 Performance Observations:: Yu walked on level ground without assistance. She walked the entire time on room air. She maintained her SPO2 93-95%, no supplemental O2 needed. 48910 - 6 Minute Walk Quality Reporting (2019) Adult ([facility] 138/12/18/68) Smoking risk assessment performed?: Yes Patient Tobacco Use Status: Current someday Tobacco user Assessment & Plan Assessment & Plan (1) COPD (chronic obstructive pulmonary disease): Code(s): J44.9 - Chronic obstructive pulmonary disease, unspecified Category: Medical Qualifiers: COPD type: emphysema Emphysema type: centrilobular Qualified Code(s): J43.2 - Centrilobular emphysema Plan: d/c oxygen Orders: Orders AMB 6 minute walk Today J43.2 - Centrilobular emphysema Coding Level of Care Code Established Pt Est Pt Level 1 (92550) Patient Type Established Diagnoses Centrilobular emphysema J43.2 COPD type: emphysema Emphysema type: centrilobular CPT Codes Coding ([id number]) Comment NURSE VISIT ONLY
[2024-11-15 10:23] VITALS: PULSE 77; O2SAT 97
== END 2024-11-15 11:35 | disposition home or self-care (01) ==
PROVIDERS: PCP Internal Medicine; Visit Provider Hospitalist
DX: J43.2 Centrilobular emphysema (principal)
CPT/HCPCS: 94618

== ENCOUNTER → 2024-11-15 09:56 | Outpatient (BNVA) | payer OTHER, SELFPAY | PROVIDERS: PCP Internal Medicine; Visit Provider Hospitalist | DX: J43.2 Centrilobular emphysema (principal) | CPT/HCPCS: 94618; 99211 ==

== ENCOUNTER 2024-11-26 10:42 | Outpatient (AMB) | payer OTHER, SELFPAY ==
--- NOTE | 2024-11-26 08:00 | MHC.OFFVIS ---
Intake Visit Reasons: Current Smoker Allergies baclofen Allergy (Severe, Verified 11/15/24 10:19) GI upset dexamethasone Allergy (Severe, Verified 11/15/24 10:19) Vomiting doxycycline Allergy (Severe, Verified 11/15/24 10:19) Vomiting naproxen [Aleve] Allergy (Severe, Verified 11/15/24 10:19) Vomiting penicillin V Allergy (Severe, Verified 11/15/24 10:19) vomitting Sulfa (Sulfonamide Antibiotics) Allergy (Severe, Verified 11/15/24 10:19) Vomiting ibuprofen [Advil] Allergy (Intermediate, Verified 11/15/24 10:19) Vomiting codeine [Codeine] Allergy (Mild, Verified 11/15/24 10:19) VOMITING aspirin [ASPIRIN] Adverse Reaction (Severe, Verified 11/15/24 10:19) VOMITING HPI HPI Current Smoker: Details: Initial visit for this 64yo smoker with a 30PYH. Patient started smoking at age 17 for 47 years. 15 years at 1ppd - now 1/2ppd. . Denies marijuana use. Denies second hand smoke exposure. Denies exposure to chemicals or substances like asbestos. . Denies known family history of lung cancer. Reports personal history of colon cancer. Numerous abdominal sugeries for this. Denies radiation or chemo. . Denies chest CT in last year. 01/26/[address] - showed stable nodules - largest were 5mm in LLL . Denies recent travel outside the [place]. Denies recent respiratory illness or recent hospitalization for respiratory issues. Denies testing positive for COVID. Admits receiving COVID Vaccine. . Denies fever, chills, new/worsening cough, hemoptysis, hoarseness or dysphagia. Denies significant chest pain, significant dyspnea or unintentional weight loss. Patient Lung Cancer Screening Questionnaire reviewed with patient by provider. . Shared Decision Making Completed. Patient meets criteria. Discussed in detail with patient, the risk vs benefit of LDCT screening. Patient consents to proceed with scan. Discussed smoking cessation. [facility] Medical History (Updated 11/26/24 @ 10:55 by Freya Mascorro PA-C) History of pulmonary embolism Congestive heart failure HTN (hypertension) HLD (hyperlipidemia) Major depression, recurrent, chronic Generalized anxiety disorder with panic attacks Bipolar disorder, mixed Nicotine dependence, cigarettes, uncomplicated Hypokalemia Flat feet, bilateral Chronic post-traumatic stress disorder (PTSD) Pulmonary nodules Chronic respiratory failure COPD (chronic obstructive pulmonary disease) Abdominal hernia Right lumbar radiculopathy Osteopenia Surgical History (Updated 11/26/24 @ 10:55 by Freya Mascorro PA-C) History of blepharoplasty History of tonsillectomy History of appendectomy History of cholecystectomy History of total abdominal hysterectomy and bilateral salpingo-oophorectomy History of bladder surgery History of colonoscopy History of umbilical hernia repair History of ileostomy History of colectomy History of hernia repair History of resection of small bowel History of reversal of ileostomy History of ventral hernia repair Family History Father Renal cell cancer Prostate cancer Leukemia Diabetes Hypertension Mother Hypertension Paternal Grandmother Colon cancer Maternal Grandfather Myocardial infarction Sister Lupus Daughter In good health Other Mental health disorder Social History (Updated 11/26/24 @ 10:51 by Freya Mascorro PA-C) Housing: Apartment Alcohol intake: never Patient Tobacco Use Status: Current someday Tobacco user Tobacco use type: Cigarette Cigarettes Per Day: 10 Years Smoked: (onset 17yo, 1/2-1ppd x 47yrs, 30pyh) e-Cigarette/Vaping Use: Never Used service: No Current occupational status: disabled Current occupation: right hand dominant Cognitive needs: Yes (cane/walker) Hearing needs: No Vision needs: Yes (glasses) Quality Reporting (2019) Adult ([facility] 138/12/18/68) Smoking risk assessment performed?: Yes Patient Tobacco Use Status: Current someday Tobacco user Assessment & Plan Assessment & Plan (1) Nicotine dependence, cigarettes, uncomplicated: Comment: (onset 17yo, 1/2-1ppd x 47yrs, 30pyh) Code(s): F17.210 - Nicotine dependence, cigarettes, uncomplicated Category: Medical Plan: - SDM visit completed today in office. - Patient meets criteria for LDCT for lung cancer screening purposes and is asymptomatic. - Smoking cessation counseling offered. Patients can always call [phone]. - Will arrange for a LDCT scan of the chest for screening purposes at [facility]. - Risks, benefits, and alternatives were discussed in detail and the patient agrees to proceed. - Risks discussed include but are not limited to: radiation exposure, anxiety during testing and while awaiting results, false negatives, false positives and possibility of additional intervention such as further imaging or surgical procedures for benign disease. - Benefits are obviously detection of lung cancer at an early stage which can lead to improved outcomes. - Discussed the importance of screening program compliance with adherence to yearly LDCT scan as scheduled - or sooner interval scans for personalized screening regimen. - Discussed follow up plan. Our office will send a letter discussing results and if needed set up phone call and office visit based on CT findings. - Patient educated on results categorization and the management decisions for suspicious findings potentially found on the screening LDCT scan. Any patient with a Lung RADS score of 3 or 4 will be reviewed by a multidisciplinary team at [facility] to form a plan of action in regards to scan findings. - If further work up is warranted for a suspicious lung finding this will be followed by the Lung Cancer Screening program in conjunction with the Thoracic Surgery Department at [facility]. - A copy of the office note and LDCT will be sent to the patient's PCP - as well as documentation on any associated further plans of care. - Incidental findings on LDCT are the PCP's responsibility. These findings are indicated with an S finding on the LDCT Assessment. A note discussing the findings will be sent to the PCP who is then responsible for further management. - All questions answered.? Coding Level of Care Code Lung Cancer Screening G0296 Diagnoses Nicotine dependence, cigarettes, uncomplicated F17.210
--- OUTSIDE RECORDS SUMMARY | 2024-11-26 11:23 | XMS_ITS | Encounter Summary ---
Author Organization [facility] Address [address] [place] [address] Care Team Providers Care Sweetbread Trimmer Name Role Phone Jigar Patel Primary Care Provider Reason for Referral * Hospital - Outpatient (Routine) - Closed Specialty Diagnoses / Procedures Referred By Mary ball Referred To Contact Gastroenterology Diagnoses History of colon polyps Procedures COLONOSCOPY Anesthesia - MAC; [facility] ENDOSCOPY Garrett Shabazz MD [address] [address] [facility] Endoscopy [address] [place] [phone] Referral ID Status Reason Start Date Expiration Date Visits Re quested Visits Authorized [id number] Closed 10/26/2024 10/26/2025 1 1 Reason for Visit * Hospital - Outpatient (Routine) - Closed Specialty Diagnoses / Procedures Referred By Mary ball Referred To Contact Gastroenterology Diagnoses History of colon polyps Procedures COLONOSCOPY Anesthesia - MAC; [facility] ENDOSCOPY Garrett Shabazz MD [address] [address] [facility] Endoscopy [address] [place] [phone] Referral ID Status Reason Start Date Expiration Date Visits Re quested Visits Authorized [id number] Closed 10/26/2024 10/26/2025 1 1 Encounter Details Date Type Department Care Team (Late st Contact Info) Description 11/08/2024 7:28 AM EST - 11/08/2024 11:59 PM EST Hospital Encounter [facility] Endoscopy [address] [place] [address] Garrett Shabazz MD [address] [address] Monica Hernandez MD [address] [place] [address] Aiden Wang CRNA [address] [place] [phone] History of colon polyps Discharge Disposition: Home or Self Care Social History Tobacco Use Types Packs/Day Years Used Date Smoking Tobacco: Some Days Cigarettes 0.3 46.6 Started: 04/13/1978 Smokeless Tobacco: Never Tobacco Cessation:Ready to Q uit: Not Asked; Counseling Given: Not Answered Alcohol Use Standard Drinks/Week Comments No 0 (1 standard drink = 0.6 oz pur e alcohol) Interpersonal Safety Answer Date Record ed Physical Abuse 11/08/2024 Verbal Abuse 11/08/2024 Sex and Gender Information Value Date Recorded Sex Assigned at Female 11/05/2024 8:51 AM EST Gender Identity Female 11/05/2024 8:51 AM EST Sexual Orientation Straight 11/05/2024 8: 51 AM EST Job Start Date Occupation Industry Not on file Not on file Not on file documented as of this encounter Last Filed Vital Signs Vital Sign Reading Time Taken Comments Blood Pressure 112/67 11/08/2024 9:16 AM EST Pulse 83 11/08/2024 9:16 AM EST Temperature 36.7 ??C (98 ??F) 11/08/2024 9:16 AM EST Respiratory Rate 20 11/08/2024 9:16 AM EST Oxygen Saturation 99% 11/08/2024 9:16 AM EST Inhaled Oxygen Concentration - - Weight 88.9 kg (196 lb) 11/08/2024 8:18 AM EST Height 160 cm (5' 3 ) 11/08/2024 8:18 AM EST Body Mass Index 34.72 11/08/2024 8:18 AM EST documented in this encounter Functional Status Functional Status Response Date of Assess ment Are you deaf or do you have serious difficulty h earing? No 10/21/2024 Are you blind or do you have serious difficulty seeing, even when wearing glasses? No 10/21/2024 Do you have serious difficul ty walking or climbing stairs? No 10/21/2024 Do you have serious difficulty dressing or bathi ng? No 10/21/2024 Because of a physical, menta l, or emotional condition, do you have serious difficulty doing errands alone such as visiting the doctor? No 10/21/2024 Cognitive Status Response Date of Assessm ent Because of a physical, menta l, or emotional condition, do you have serious difficulty concentrating, remembering, or making decisions? (5 years old or older) No 10/21/2024 documented as of this encounter Discharge Instructions * Attachments The following attachments cannot be sent through Care Everywhere. * Colonoscopy: Post-op (Latvian) documented in this encounter Medications at Time of Discharge Medication Sig Dispensed Refills Start Date End Date diazePAM (VALIUM) 10 mg tablet apixaban (ELIQUIS) 5 mg tablet Take 1 tablet (5 mg total) by mouth 2 (two) times a day. diphenoxylate-atropine (LOMOTIL) 2.5-0.025 mg per tabletIndications:Diarrhe a following gastrointestinal surgery TAKE 2 TABLETS BY MOUTH THREE TIMES DAILY NEEDED 180 tablet 4 11/04/2024 ergocalciferol, vitamin D2, 50 mcg (2,000 unit) capsule Take 1 Cap by mouth daily. esomeprazole (NexIUM) [address] capsuleIndications:GERD (gastroesophageal reflux disease) TAKE 1 CAPSULE BY MOUTH TWICE DAILY 56 capsule 3 10/04/2024 folic acid (FOLVITE) 1 mg tablet Take 1 Tab by mouth daily. levothyroxine (SYNTHROID, LEVOTHROID) 50 mcg tablet lidocaine (XYLOCAINE) 5 % ointmentIndications:Diarr hea following gastrointestinal surgery APPLY A SMALL AMOUNT TO AFFECTED AREA ON RECTUM 3 TIMES DAILY NEEDED 49.222 g 2 09/16/2024 dxglpr-fwpqtbpm-twfdygf (Creon) 36,000-114,000- 180,000 unit capsule,delayed release(DR/EC)Indications :Pancreatic insufficiency Take 2 capsules by mouth 4 (four) times a day. 600 capsule 3 10/15/2024 01/13/2025 lisinopril-hydroCHLOROthi azide (PRINZIDE,ZESTORETIC) 20-12.5 mg per tablet Take 1 tablet by mouth daily. omeprazole (PriLOSEC) [address] capsule Take 1 Cap by mouth daily. ondansetron (ZOFRAN) 8 mg tablet Take 1 Tab by mouth every 8 hours as needed. oxyCODONE (ROXICODONE) 5 mg immediate release tablet Take 1 tablet (5 mg total) by mouth every 6 (six) hours if needed for severe pain. Max Daily Amount: 20 mg 10 tablet 10/22/2024 pantoprazole (PROTONIX) 40 mg EC tablet 09/28/2024 prazosin (MINIPRESS) 5 mg capsule documented as of this encounter Discharge Disposition Disposition Code Departure Means Destination Home or Self Care documented in this encounter Progress Notes * Yu Sanchez RN - 11/08/2024 8:47 AM EST In small bowel per Dr Shabazz documented in this encounter H&P Notes * Garrett Shabazz MD - 11/08/2024 8:30 AM EST No real change. See last progress note. Source Note - Garrett Shabazz MD - 10/15/2024 11:13 AM EST creon documented in this encounter Procedure Notes * Kristi Kim RN - 11/08/2024 9:10 AM EST PT TOLERATED PO FLUIDS AND SNACK. SPOKE TO PT REGARDING RESULTS. documented in this encounter Plan of Treatment Upcoming Encounters Date Type Department Care Team (Late st Contact Info) Description 01/07/2025 10:00 AM EDT Office Visit Gastroenterology - [address] [place] [id number] Garrett Shabazz MD [address] [place] [address] documented as of this encounter Procedures Procedure Name Priority Date/Time Associated Diagnosis Comments COLONOSCOPY Routine 11/08/2024 8:55 AM EST History of colon polyps TISSUE EXAM Routine 11/08/2024 8:48 AM EST History of colon polyps documented in this encounter Results * COLONOSCOPY Anesthesia - MAC; [facility] ENDOSCOPY (11/08/2024 8:55 AM EST) Anatomical Region Laterality Modality Other 11/08/2024 8:40 AM EST Impressions 11/08/2024 8:59 AM EST - Patent end-to-end ileo-colonic anastomosis, ? characterized by healthy appearing mucosa. ? - The examination was otherwise normal on direct and ? retroflexion views. ? - Biopsies were taken with a cold forceps for ? histology in the rectum, in the sigmoid colon and in ? the distal ileum. Recommendation: ?- Patient has a contact number available for ? emergencies. The signs and symptoms of potential ? delayed complications were discussed with the patient. ? Return to normal activities tomorrow. Written ? discharge instructions were provided to the patient. ? - Resume previous diet. ? - Continue present medications. ? - Await pathology results. Narrative 11/08/2024 8:59 AM EST [facility] GI Patient Name: Yu Morgan Procedure Date: 11/08/2024 8:40 AM Date of : 1960 Age: 64 Gender: Female Note Status: Finalized Attending MD: Garrett Shabazz MD, Procedure Date No Time: 11/08/2024 Procedure: ? Colonoscopy Indications: ? Chronic diarrhea, Anal bleeding Providers: ? Garrett Shabazz MD Referring MD: ?Garrett Shabazz MD Medicines: ? Monitored Anesthesia Care Complications: ? No immediate complications. Estimated Blood Loss: ? Estimated blood loss was minimal. Procedure: ? After I obtained informed consent, the scope was ? passed under direct vision. Throughout the procedure, ? the patient's blood pressure, pulse, and oxygen ? saturations were monitored continuously. The Olympus ? Pediatric Colonoscope was introduced through the anus ? and advanced to 20 cm into the ileum. The colonoscopy ? was performed without difficulty. The patient ? tolerated the procedure well. The quality of the bowel ? preparation was adequate. Findings: ?There was evidence of a prior end-to-end ileo- colonic ? anastomosis in the sigmoid colon. This was patent and ? was characterized by healthy appearing mucosa. The ? anastomosis was traversed. ? The exam was otherwise without abnormality on direct ? and retroflexion views. Clara-anal excoriations noted. ? Biopsies were taken with a cold forceps in the rectum, ? in the sigmoid colon and in the distal ileum for ? histology. Procedure Code(s): ? --- Professional --- ? 51227, Colonoscopy, flexible; with biopsy, single or ? multiple CPT copyright 2021 [employer]. All rights reserved. The codes documented in this report are preliminary and upon party plan sales director review may be revised to meet current compliance requirements. MD Garrett Do MD 11/08/2024 8:59:29 AM This report has been signed electronically.Garrett Shabazz MD Number of Addenda: 0 Note Initiated On: 11/08/2024 8:40 AM Scope In: Scope Out: ? Endoscopy Department at [facility] - [address] [place] [address], ? [place] [address] Procedure Note Garrett Shabazz MD - 11/08/2024 [facility] GI Patient Name: Yu Morgan Procedure Date: 11/08/2024 8:40 AM Date of : 1960 Age: 64 Gender: Female Note Status: Finalized Attending MD: Garrett Shabazz MD, Procedure Date No Time: 11/08/2024 Procedure: Colonoscopy Indications: Chronic diarrhea, Anal bleeding Providers: Garrett Shabazz MD Referring MD: Garrett Shabazz MD Medicines: Monitored Anesthesia Care Complications: No immediate complications. Estimated Blood Loss: Estimated blood loss was minimal. Procedure: After I obtained informed consent, the scope was passed under direct vision. Throughout theprocedure, the patient's blood pressure, pulse, and oxygen saturations were monitored continuously. TheOlympus Pediatric Colonoscope was introduced through theanus and advanced to 20 cm into the ileum. Thecolonoscopy was performed without difficulty. The patient tolerated the procedure well. The quality of thebowel preparation was adequate. Findings: There was evidence of a prior aqf-or-zhnkldy-colonic anastomosis in the sigmoid colon. This was patentand was characterized by healthy appearing mucosa. The anastomosis was traversed. The exam was otherwise without abnormality ondirect and retroflexion views. Clara-anal excoriationsnoted. Biopsies were taken with a cold forceps in therectum, in the sigmoid colon and in the distal ileum for histology. Procedure Code(s): --- Professional --- 71865, Colonoscopy, flexible; with biopsy, singleor multiple CPT copyright 2020 [employer]. All rights reserved. The codes documented in this report are preliminary and upon party plan sales director reviewmay be revised to meet current compliance requirements. MD Garrett Do MD 11/08/2024 8:59:29 AM This report has been signed electronically.Garrett Shabazz MD Number of Addenda: 0 Note Initiated On: 11/08/2024 8:40 AM Scope In: Scope Out: Endoscopy Department at [facility] - [address] [place] [phone] IMPRESSION: - Patent end-to-end ileo-colonic anastomosis, characterized by healthy appearing mucosa. - The examination was otherwise normal on directand retroflexion views. - Biopsies were taken with a cold forceps for histology in the rectum, in the sigmoid colon andin the distal ileum. Recommendation: - Patient has a contact number available for emergencies. The signs and symptoms of potential delayed complications were discussed with thepatient. Return to normal activities tomorrow. Written discharge instructions were provided to thepatient. - Resume previous diet. - Continue present medications. - Await pathology results. Garrett Shabazz MD GI~PROCEDURE ORDERAB LES * Tissue exam (11/08/2024 8:48 AM EST) Final Diagnosis A. Terminal ileum, biopsy: Small bowel mucosa with occasional reactive lymphoid aggregates; otherwise without diagnostic histopathologic change. B. Distal colon, biopsy: Colonic mucosa with surface reactive changes; otherwise without diagnostic histopathologic change. 11/09/2024 8:26 AM EST [facility] Gross Description A. Colon, biopsies of terminal ileum: Labeled colon biopsies, ID: 1 . Received in formalin, are three irregular soft, callahan-pink tissue fragments, approximately ranging from 0.2 cm to 0.5 cm in greatest diameters, which are wrapped in paper and submitted in toto in one cassette, three pieces, multiple levels. B. Colon, biopsies of distal: Labeled colon biopsy, ID:2 . Received in formalin, are eight irregular soft, callahan-pink to red tissue fragments, approximately ranging from less than 0.1 cm to 0.5 cm in greatest diameters, which are wrapped in paper and submitted in toto in one cassette, eight pieces, multiple levels. Please note: Small tissue fragments may not survive processing. dvb/DG 11/09/2024 8:26 AM EST [facility] ([facility]) [facility] Disclaimer Unless otherwise specified, all tissue is 10% NB formalin fixed and paraffin embedded. 11/09/2024 8:26 AM EST [facility] Tissue (Colon) 11/08/2024 8: 48 AM EST 11/08/2024 11:13 AM EST Tissue specimen (specimen) (Colon) 11/08/2024 8:49 AM EST 11/08/2024 11:13 AM EST Garrett Shabazz MD LAB PATHOLOGY ORDERA [facility] [address] [place] [address], documented in this encounter Visit Diagnoses Diagnosis History of colon polyps documented in this encounter Discontinued Medications Medication Sig Discontinue Reason Start Date End Da te diazePAM (VALIUM) 10 mg tablet Take 1 Tab by mouth every 8 hours as needed. 11/08/2024 ondansetron ODT (ZOFRAN-ODT) 4 mg disintegrating tablet Dissolve 1 tablet (4 mg total) on top of the tongue every 8 (eight) hours if needed for nausea or vomiting. 10/22/2024 11/08/2024 prazosin (MINIPRESS) 2 mg capsule Take 1 Cap by mouth 2 times daily. 05/11/2019 11/08/2024 semaglutide (Wegovy) 0.25 mg/0.5 mL injection pen Inject 0.25 mg into the skin once a week. 08/23/2024 11/08/2024 sucralfate (CARAFATE) 1 gram tablet Take 1 Tab by mouth 2 times daily (before meals). 11/08/2024 documented as of this encounter Care Teams Sweetbread Trimmer Relationship Specialty Start Date End Date Jigar Patel PA [address] [facility] [address] [address] [place] [address] PCP - General 02/26/23 documented as of this encounter
--- OUTSIDE RECORDS SUMMARY | 2024-11-26 11:23 | XMS_ITS | Data Portability ---
Author Organization [employer] [place] Address [address] [place] [address] Care Team Providers Care Parking Meter Collector Name Role Phone [facility] Referring Provider [phone] Assessment Encounter Date Assessment Date Assessment LastModified by Organization Details LastModified Time 11/29/2022 11/29/2022 I have reviewed and agree with the assessment and plan as documented by the hearings reporter. I provided real-time medical direction for this encounter and was immediately available to provide additional phone-based assistance as needed. 62F with multiple comorbidities presents with epigastric pain, intermittent, radiating into her abdomen. Pt is known for significant hernia, scheduled for surgery in 6 weeks. No nausea/vomiting or change in stool. Symptoms present for 4-5 days. Pt on PRN dilaudid for pain and omeprazole. No chest pain, SOB or dizziness. Abdominal exam is at her baseline. Reviewed patients medication, has had decrease in omeprazole dosing in the past few weeks - decreased from 80mg BID to 20mg AM and 40mg PM. Pt states that care team made specific changes and advised her to not take more. Pt also on Zofran 8mg four times a day. Reviewed options for patient. Overall, it appears that patient symptoms are stable, at baseline. Recommend that care team follow up with GI. Recommend smaller meals. Pt also requesting refill of barrier cream rx. Patient education and counseling, supportive care, and strict return precautions given. paysola Not available 11/29/2022 12:46:32 09/02/2023 09/02/2023 I have reviewed and agree with the assessment and plan as documented by the hearings reporter. I provided real time medical direction for this encounter and was immediately available to provide additional phone based assistance as needed. History as noted by hearings reporter. Pt with history of multiple abdominal/bowel surgeries including prior colostomy reversal. Pt has known ventral hernia and has been evaluated at [facility] for surgical repair of the hernia. Pt reports recent increase in size of hernia and for the last few days has noted increased hernia pain with nausea and vomiting. On exam, pt appears uncomfortable. Vitals ok. Abdomen with large ventral hernia, soft but very tender to palpation. Impression: Pt with large, chronic ventral hernia, now with reported increase in hernia size with increased pain, nausea and vomiting. Pt may have intermittent hernia incarceration and bowel obstruction and I inform her that she needs to go to the ED for evaluation including imaging and surgical consult. Pt reportedly declined to go to a local ED when that was advised earlier today, since she was hoping to get to [facility] tomorrow, but is now stating that she is willing to go to the [facility] ED (since they are part of [facility]) for evaluation and possible transfer to [facility] for surgical evaluation. Junior Copywriter helps to arrange ambulance transport to the [facility] ED. I call an expect to the [facility] ED hemodialysis charge nurse as well. [email or web address] Not available 09/02/2023 17:22:49 Plan of Treatment Reminders Order Date Submit Date Provider Last Modified By Organization Details Last Modified Time Details Appointments None recorded. Lab None recorded. Referral None recorded. Procedures None recorded. Surgeries None recorded. Imaging None recorded. Medication Orders Moisture Barrier Ointment 0.44 %-20.6 % 2022 023 [facility], [address], [place], [address], 3 12:47:52 Patient TargetsNo targets recorded. Patient InstructionsNo instructions recorded. Reason for Referral None Reported. Medical Equipment None Reported. Allergies Allergen ID Allergen Name Allergen Category Reaction Reaction Severity Criticality Documentation Date Start Date Code Code System Note Provider Name and Address Organization Details Recorded Time 8461 Product containin g penicilli n and antibioti c (product) medicatio n Not available Not available Not available 08/24/2024 30422 05 SNOMED Not Available [facility] - [facility] 4 03:44:27 8462 aspirin medicatio n Not available Not available Not available 08/24/2024 1191 RxNorm Not Available [facility] - production 4 03:44:27 Medications Name Sig Start Date Stop Date Status Note LastModified by Organization Details LastModified Time Prescription - Renewal active Not Available Not Available Not Available multivitamin tablet active Not Available Not Available Not Available prednisone 10 mg tablet active Not Available Not Available No t Available Monistat 3 200 mg/5 gram (4 %) vaginal cream active Not Available Not Available Not Available loperamide 2 mg capsule TAKE 1 CAPSULE BY MOUTH FOUR TIMES DAILY FOR UP TO 10 DAYS NEEDED FOR DIARRHEA active Not Available Not Available No t Available trazodone 50 mg tablet active Not Available Not Available No t Available fluconazole 150 mg tablet active Not Available Not Availabl e Not Available ondansetron HCl 8 mg tablet active Not Available Not Available Not Available sucralfate 1 gram tablet active Not Available Not Available Not Available lisinopril 20 mg tablet active Not Available Not Available No t Available risperidone 0.25 mg tablet active Not Available Not Availab le Not Available omeprazole 40 mg capsule,delaye d release active Not Available Not Available No t Available tramadol 50 mg tablet active Not Available Not Available Not Available acetaminophen 500 mg tablet active Not Available Not Availabl e Not Available acetaminophen ER 650 mg tablet,extende d release active Not Available Not Available No t Available Mi-Acid Gas Relief (simethicone) 80 mg chewable tablet active Not Available Not Available Not Available prazosin 5 mg capsule active Not Available Not Available Not Available oxycodone-acet aminophen 5 mg-325 mg tablet active Not Available Not Available Not Available calcium 600 mg (as calcium carbonate 1,500 mg) tablet active Not Available Not Available Not Available hydromorphone 2 mg tablet active Not Available Not Available Not Available potassium chloride ER 20 mEq tablet,extende d release(part/c ryst) active Not Available Not Available Not Available nicotine (polacrilex) 4 mg gum CHEW 1 GUM FOR 30 MINUTES NEEDED UP TO 15 TIMES DAILY active Not Available Not Available No t Available levothyroxine 50 mcg tablet active Not Available Not Availabl e Not Available cephalexin 500 mg capsule active Not Available Not Available N ot Available esomeprazole magnesium 40 mg capsule,delaye d release active Not Available Not Available No t Available triamcinolone acetonide 0.1 % topical ointment active Not Available Not Available Not Available clotrimazole-b etamethasone 1 %-0.05 % topical cream active Not Available Not Availabl e Not Available lisinopril 30 mg tablet active Not Available Not Available No t Available Gas Relief Extra Strength 125 mg capsule active Not Available Not Availab le Not Available folic acid 1 mg tablet active Not Available Not Available No t Available hydrocortisone 2.5 % topical cream active Not Available Not Available Not Available hydroxyzine HCl 25 mg tablet active Not Available Not Available Not Available mupirocin 2 % topical ointment active Not Available Not Available Not Available furosemide 20 mg tablet active Not Available Not Available No t Available diazepam 10 mg tablet active Not Available Not Available Not Available hydromorphone 4 mg tablet active Not Available Not Available Not Available Vitamin B-1 100 mg tablet active Not Available Not Availabl e Not Available betamethasone dipropionate 0.05 % topical ointment APPLY TO LARGE AREA FOUR TIMES DAILY X 30 DAYS active Not Available Not Available No t Available ondansetron 4 mg disintegrating tablet active Not Available Not Available Not Available metronidazole 0.75 % topical gel active Not Available Not Available Not Available lamotrigine 100 mg tablet active Not Available Not Availabl e Not Available risperidone 0.5 mg tablet active Not Available Not Availabl e Not Available prazosin 2 mg capsule active Not Available Not Available Not Available Ventolin HFA 90 mcg/actuation aerosol inhaler active Not Available Not Available Not Available esomeprazole magnesium 20 mg capsule,delaye d release active Not Available Not Available No t Available oxycodone 5 mg tablet TAKE 1 TABLET BY MOUTH EVERY 6 HOURS NEEDED FOR SEVERE PAIN active Not Available Not Available No t Available 3-Day Vaginal 2 % cream active Not Available Not Available No t Available duloxetine 20 mg capsule,delaye d release active Not Available Not Available No t Available duloxetine 30 mg capsule,delaye d release active Not Available Not Available No t Available Gas Relief Extra Strength 125 mg chewable tablet active Not Available Not Available Not Available quetiapine ER 400 mg tablet,extende d release 24 hr active Not Available Not Available Not Available FeroSul 325 mg (65 mg iron) tablet active Not Available Not Available Not Available oxycodone 10 mg tablet active Not Available Not Available No t Available diclofenac 1 % topical gel active Not Available Not Available Not Available cholecalcifero l (vitamin D3) 50 mcg (2,000 unit) capsule active Not Available Not Availabl e Not Available menthol 0.44 %-zinc oxide 20.6 % topical ointment active Not Available Not Available Not Available Culturelle 15 billion cell sprinkle capsule active Not Available Not Available Not Available Belbuca 750 mcg buccal film active Not Available Not Available Not Available Belbuca 900 mcg buccal film active Not Available Not Available Not Available naloxone 4 mg/actuation nasal spray active Not Available Not Available Not Available Trintellix 10 mg tablet active Not Available Not Available No t Available Trintellix 20 mg tablet active Not Available Not Available No t Available Reguloid (psyllium husk) 0.4 gram capsule active Not Available Not Available Not Available Trelegy Ellipta 100 mcg-62.5 mcg-25 mcg powder for inhalation active Not Available Not Available N ot Available Vitals Date Recorded Respiratory rate Body weight Oxygen saturation Oxygen saturation in Arterial blood by Pulse oximetry Heart rate Systolic blood pressure Diastolic blood pressure Provider Name and Address Organization Details Last Updated DateTime 3 16 /min 76068.6 8 g 98 % 98 % 79 /min 144 mm[Hg] 90 mm[Hg] Not Available [facility] - production 3 13:06:43 Date Recorded Heart rate Oxygen saturation Oxygen saturation in Arterial blood by Pulse oximetry Body temperature Respiratory rate Systolic blood pressure Diastolic blood pressure Provider Name and Address Organization Details Last Updated DateTime 3 85 /min 96 % 96 % 98.4 [degF] 16 /min 154 mm[Hg] 83 mm[Hg] Not Available [facility] - production 3 20:27:00 Date Recorded Respiratory rate Heart rate Oxygen saturation Oxygen saturation in Arterial blood by Pulse oximetry Body temperature Systolic blood pressure Diastolic blood pressure Provider Name and Address Organization Details Last Updated DateTime 3 18 /min 96 /min 95 % 95 % 98.7 [degF] 130 mm[Hg] 78 mm[Hg] Not Available [facility] 3 15:16:46 Date Recorded Respiratory rate Oxygen saturation Oxygen saturation in Arterial blood by Pulse oximetry Body temperature Heart rate Systolic blood pressure Diastolic blood pressure Provider Name and Address Organization Details Last Updated DateTime 3 16 /min 94 % 94 % 98.5 [degF] 83 /min 152 mm[Hg] 92 mm[Hg] Not Available [facility] - [facility] 3 12:24:28 Social History None recorded. Functional Status None recorded. Mental Status None recorded. Family History Nothing Reported. Medical History No medical history recorded. Gynecological HistoryNo gynecological history recorded. Obstetrics History GPAL:G 0 P 0 0 0 0 Past Encounters Encounter ID Performer Location Encounter Start Date Encounter Closed Date Diagnosis/Indication Diagnosis SNOMED-CT Code Diagnosis ICD10 Code Diagnosis Note [id number] Shelli Velez MD [facility] - [address] [phone] 11/29/2022 12:24:25 12/02/2022 12:22:07 Epigastric pain 74603964 R10.13 [id number] Chema Quezada MD [facility] [address] [place] [phone] 04/25/2023 13:06:41 04/29/2023 10:15:27 Carpal tunnel syndrome 02871462 G56.01 This 63-year-ol d female with previous right carpal tunnel surgery has a history of right wrist and hand pain that has been worse over the past week. The pain hasn't responded to OTC meds. I ordered Toradol 30 mg IM. She will follow-up with her regular physicians . The patient agreed with this plan. [id number] Chema Quezada MD [facility] - [address] [address] 04/26/2023 20:26:56 04/28/2023 10:33:04 Pain in limb 69070939 M79.609 This 63-year-ol d female continues to have fairly severe wrist and arm pain. She was seen yesterday and received Toradol 30 mg IM with some relief. She was prescribed a NSAID without improvemen t. She has an appointmen t this coming week for further evaluation . I ordered Toradol 30 mg IM today, and advised her that getting repeated Toradol injections is not a viable option. The patient agreed with this plan. [id number] Christoph Blood [facility] [address] [place] [phone] 09/02/2023 15:16:43 09/02/2023 22:32:50 Abdominal pain 36162655 R10.9 Health Concerns Section Related Observation LastModified by Organization Detai ls LastModified Time None Recorded Concern Status LastModified by Organization Details LastModified Time None Recorded Advance Directives Directive None Recorded Payers Encounter Date Sequence Insurance Name Policy Number Policy Mcguire Covered Member ID Mcguire Member ID Guarantor Name 11/29/2022 1 [facility] - DOS PRIOR TO 2023 - DUAL ELIGIBLE (MEDICARE REPLACEMENT/ADV ANTAGE - HMO) Yu Morgan [id number] Yu Bojorquezt 04/25/2023 1 [facility] - DOS ON OR AFTER 2023 - DUAL ELIGIBLE - HALF-WAY OPTIONS AND ONE CARE (MEDICARE REPLACEMENT/ADV ANTAGE - HMO) Yu Morgan [id number] Yu Bojorquezt 04/26/2023 1 [facility] - DOS ON OR AFTER 2023 - DUAL ELIGIBLE - HALF-WAY OPTIONS AND ONE CARE (MEDICARE REPLACEMENT/ADV ANTAGE - HMO) Yu Morgan [id number] Yu Bojorquezt 09/02/2023 1 [facility] - DOS ON OR AFTER 2023 - DUAL ELIGIBLE - HALF-WAY OPTIONS AND ONE CARE (MEDICARE REPLACEMENT/ADV ANTAGE - HMO) Yu Morgan [id number] Yu Bojorquezlizzy Notes Date Note Type Note Provider Name and Address Organization Details Recorded Time 11/29/2022 text/html [facility] Nursing Assessment: Patient Reports: COPD; Shortness of breath with exertion; Chest pain, increased fatigue Denies: Cough, fever greater than 2 days Lower extremity swelling History of asthma, increased use of inhaler COVID Exposure Sputum increase Cough Pain with inspiration Palpitations, feeling dizzy CHF history, increased swelling and edema Weakness/tachycard ia Chief Complaints: Chest Pain, Shortness of Breath/Dyspnea PMH: COPD/Asthma, CHF Allergies: Penicillin, Aspirin Comments: Member calling in to place a referral, verified via . Members community [employer] nurse present during time of triage. Member has had chest discomfort for 3-4 days, denies jaw or arm pain , no dizziness or palpitations. She does have some intermittent sob but is also s/p PNA, has a hx of COPD and uses inhalers, not 02 dependent and does not use nebulizers. Member self test and was (-)covid. This nurse encouraged ED to r/o a cardiac event, member adamantly declined, as she will sit there for hours and has a big hernia repair surgery coming up soon. member aware of adverse effects of not seeking more urgent higher level of care and still declines 911/ED. Member would like to be evaluated in home. Shelli Velez MD [address] [facility],[address], [place], [address], [employer] 11/29/2022 12:46:44 04/25/2023 text/html HPI: Yu states since Friday her right hand throbs, she states she thinks it is nerve pain. She reports a history of carpal tunnel surgery in the past. She reports taking Tylenol with no relief and reports 10/10 pain and has an appt tomorrow with PCP. She states she would like an Count includes the [facility] visit for pain relief. She reports she has an appt with PCP tomorrow. .................. .................. .................. .................. .................. .................. .................. ............... CRC Nursing Assessment: Comments: CRC RN DID NOT NEED FURTHER INFO .................. .................. .................. .................. .................. .................. .................. ............... Junior Copywriter Note From Dave Mai: pt requesting visit for right hand pain, pt has hx of carpal tunnel in that hand with previous surgeries. Pt has a F/U with a DR tomorrow. Pt requesting pain relief as she has not been able to get comfortable or sleep well due to the pain for the past 5 days. Pt has been taking tylenol with no relief, pt unable to take ibuprofen as it upsets her stomach. Pt not on any blood thinners, pt denies hx of gi bleeds or abd surgery. Vitals assessed . +csm in extremity, pt able to move it well and has good pulses and sensation. contacted [facility] ordered 30mg of Toradol IM . Toradol given in left deltoid . Pt educated on s/s warranting a 911 call/trip to the hospital. Pt advised to keep F/U appt tomorrow with her doctor. Junior Copywriter Allergies: Penicillin, Aspirin .................. .................. .................. .................. .................. .................. .................. ............... Disposition: Fulfilled Chema Quezada MD [address] [place] [address],[address], [place], [address], [employer] 04/28/2023 17:27:10 04/26/2023 text/html HPI: Member with carpal tunnel pain. Went to urgent care today states she was given medication but it has done nothing to help with the pain. Member requesting visit for pain management until she can be seen by PCP on Friday. .................. .................. .................. .................. .................. .................. .................. ............... CRC Nursing Assessment: Comments: CRC RN DId not further info,nessa Quezada MD [address], [place], [address], [employer] 04/26/2023 20:32:11 09/02/2023 text/html This was a supervised home visit with hearings reporter Brenda Newton. HPI: Member reports that she is experiencing abdominal and hernia pain today. Vomiting since this morning. Sweating. Member has hx of hernia pain and is trying to go to [facility] for a urgent medical visit tomorrow. Member reports dried blood in her stool but refusing to go to ER. Member does not want to go to ER here. Member reports she took Tylenol for pain management and it has not helped. Member reports her stomach is the size of a balloon due to her hernia pain but PCP/Specialists are aware. Member is waiting for her surgery related to her hernia. [facility] while waiting for transport to be approved for hospital visit tomorrow. Member stated she will call 911 if her symptoms worsen .................. .................. .................. .................. .................. .................. .................. ............... Junior Copywriter Note From Brenda Newton: Upon arrival, pt was lying in bed on her right side. A/O x4 pt color is pale/warm/dry. Pt is not in any immediate respiratory distress. Pt stated that she has extensive abdominal issues and is supposed to have surgery in [place]. Pt states she has been in 10/10 pain x 2-3 days with nausea, vomiting, and bloody stools. Pt states she wants to go to the ER but insists she gets to [facility] because they are the only ones who will transfer her to [place]. Vitals as noted. Hernia can be visualized in the abdomen. Abdomen is non rigid but extremely tender to the touch. Pt denies any CP, dizziness and/or SOB. [facility] contacted and agrees pt needs to be evaluated in ER. Pt states [facility] will find someone to [facility] and once lifeline is activated, rep stated she told responding unit that pt must be taken to [facility]. EMS BLS unit arrives on scene and states they cannot transport outside their area. Dispatch is notified and asked if [facility] can transport pt to [facility]. [facility] arrives on scene to transport pt and [facility] is cleared. It is noted that pt stated she was at [facility] earlier today for blood work. Pt stated she was brought by transport but they will not do same day transports. [facility] contacted [facility] to alert of pt? s arrival. Call is then cleared. Junior Copywriter Allergies: Penicillin, Aspirin .................. .................. .................. .................. .................. .................. .................. ............... Disposition: Fulfilled Christoph Blood MD [address] [facility],[address], [place], [address], [employer] 09/02/2023 17:23:01 OBGyn Episode No OBEpisode recorded.
--- OUTSIDE RECORDS SUMMARY | 2024-11-26 11:23 | XMS_ITS | Clinical Summary ---
Author Organization [facility] [address] [facility] Address [address] [place] [address] Phone Care Team Providers Care Wild Animal Caretaker Name Role Phone Jigar Patel Primary Care Provider Allergies Active Allergy Reactions Criticality Noted Date Comments Doxycycline 01/11/2019 Nsaids (Non-Steroidal Anti-I nflammatory Drug) 01/11/2019 Penicillins 01/11/2019 Medications Medication Sig Dispensed Refills Start Date End Date Status diazePAM (VALIUM) 10 mg tablet Active folic acid (FOLVITE) 1 mg tablet Take 1 Tab by mouth daily. Active levothyroxine (SYNTHROID, LEVOTHROID) 50 mcg tablet Active lisinopril-hydroCHLOR Othiazide (PRINZIDE,ZESTORETIC) 20-12.5 mg per tablet Take 1 tablet by mouth daily. Active omeprazole (PriLOSEC) [address] capsule Take 1 Cap by mouth daily. Active ondansetron (ZOFRAN) 8 mg tablet Take 1 Tab by mouth every 8 hours as needed. Active prazosin (MINIPRESS) 5 mg capsule Active ergocalciferol, vitamin D2, 50 mcg (2,000 unit) capsule Take 1 Cap by mouth daily. Active lidocaine (XYLOCAINE) 5 % ointmentIndications:D iarrhea following gastrointestinal surgery APPLY A SMALL AMOUNT TO AFFECTED AREA ON RECTUM 3 TIMES DAILY NEEDED 49.222 g 2 4 Active esomeprazole (NexIUM) [address] capsuleIndications:GE RD (gastroesophageal reflux disease) TAKE 1 CAPSULE BY MOUTH TWICE DAILY 56 capsule 3 4 Active pantoprazole (PROTONIX) 40 mg EC tablet 4 Active zxnqrx-xzqhsqva-pfjua se (Creon) 36,000-114,000- 180,000 unit capsule,delayed release(DR/EC)Indicat ions:Pancreatic insufficiency Take 2 capsules by mouth 4 (four) times a day. 600 capsule 3 4 01/14/20 25 Active apixaban (ELIQUIS) 5 mg tablet Take 1 tablet (5 mg total) by mouth 2 (two) times a day. Active oxyCODONE (ROXICODONE) 5 mg immediate release tablet Take 1 tablet (5 mg total) by mouth every 6 (six) hours if needed for severe pain. Max Daily Amount: 20 mg 10 tablet 4 Active diphenoxylate-atropin e (LOMOTIL) 2.5-0.025 mg per tabletIndications:Ava rrhea following gastrointestinal surgery TAKE 2 TABLETS BY MOUTH THREE TIMES DAILY NEEDED 180 tablet 4 5 Active loperamide (IMODIUM) 2 mg capsule TAKE 1 CAPSULE BY MOUTH FOUR TIMES DAILY NEEDED 30 capsule 5 Active loperamide (Imodium A-D) 2 mg tablet Take 1 tablet (2 mg total) by mouth 4 (four) times a day if needed for diarrhea. 360 tablet 3 5 02/18/20 25 Active diazePAM (VALIUM) 10 mg tablet Take 1 Tab by mouth every 8 hours as needed. 11/08/19 25 Discontinued prazosin (MINIPRESS) 2 mg capsule Take 1 Cap by mouth 2 times daily. 9 11/08/19 25 Discontinued semaglutide (Wegovy) 0.25 mg/0.5 mL injection pen Inject 0.25 mg into the skin once a week. 4 11/08/19 25 Discontinued sucralfate (CARAFATE) 1 gram tablet Take 1 Tab by mouth 2 times daily (before meals). 11/08/19 25 Discontinued ondansetron ODT (ZOFRAN-ODT) 4 mg disintegrating tablet Dissolve 1 tablet (4 mg total) on top of the tongue every 8 (eight) hours if needed for nausea or vomiting. 20 tablet 4 11/08/19 25 Discontinued Hospital, Clinic, or Other Facility Administered Medication Ordered Dose Route Frequency Start Date End Date Status loperamide (IMODIUM) capsule 2 mgIndications:Functio nal diarrhea 2 mg oral 4 times daily PRN 10/26/2024 Activ e Active Problems Problem Noted Date Diagnosed Date Functional diarrhea 10/26/2024 Ventral hernia 10/22/2024 Incisional hernia, without obstruction or gangre ne 05/17/2022 COPD (chronic obstructive pulmonary disease) KALE (obstructive sleep apnea) 01/11/2019 Overview (08/31/2024): [facility] Home Polysomnogram: Date 02/04/2019; Wt 235#; VICKY 5, AI 2.5; HI 2.7; Unclassified apneas 0; Obstructive apneas 15; Central apneas 3; Mixed apneas 0; hypopneas 21; average oxygen saturation 88% (lowest 81% with saturations <88% for 5% or more of study) - Obstructive Sleep Apnea - mild; mostly hypopneas and obstructive apneas; with sleep related hypoventilation by 2019 home polysomnogram. Pulmonary nodule 01/11/2019 Resolved Problems Problem Noted Date Diagnosed Date Resolved Date Diarrhea following gastrointestinal surgery 08/31/2024 10/26/2024 Encounters Date Type Department Care Team Description 11/08/2024 8:39 AM EST Anesthesia Event [facility] Endoscopy [address] [place] [phone] Monica Hernandez MD 11/08/2024 7:28 AM EST - 11/08/2024 11:59 PM EST Hospital Encounter [facility] Endoscopy [address] [place] [phone] Garrett Shabazz MD Freeman, Katharine O, MD Abrokwah, Foster Myles G, CRNA History of colon polyps Discharge Disposition: Home or Self Care 10/26/2024 2:30 PM EST Office Visit Gastroenterology - [address] [phone] Garrett Shabazz MD Functional diarrhea (Primary Dx); Incisional hernia, without obstruction or gangrene 10/26/2024 Telephone Gastroenterology - [address] [place] [address] Deny Hauser [place] 10/22/2024 Telephone Gastroenterology - [address] [place] [address] [phone] Garrett Shabazz MD 10/21/2024 6:34 PM EST - 10/22/2024 4:43 PM EST Hospital Encounter [facility] Medical Surgical Unit [address] [place] [address] Kiran Collins MD Cheng, Ting Ho Danny, DO Fiallo, Viriato M, MD Generalized abdominal pain (Primary Dx) Discharge Disposition: Home or Self Care 10/21/2024 Telephone Gastroenterology - [address] [place] [address] [address] Garrett Shabazz MD 10/15/2024 Telephone Gastroenterology - [address] [place] [address] [address] Garrett Shabazz MD 10/14/2024 Telephone Gastroenterology - [address] [place] [address] [phone] Garrett Shabazz MD 10/11/2024 Telephone Gastroenterology - [address] [address] [place] [phone] Jerri Marsh [place] 10/11/2024 Telephone Gastroenterology - [address] [place] [address] [address] Garrett Shabazz MD 10/05/2024 11:15 AM EST Office Visit Gastroenterology - [address] [place] [address] [phone] Garrett Shabazz MD Diarrhea, unspecified type (Primary Dx); Incisional hernia, without obstruction or gangrene; Diarrhea following gastrointestinal surgery from Last 3 Months Surgical History Surgery Date Site/Laterality Comments HERNIA REPAIR PROCEDURE: WI REPAIR FIRST ABDOMINAL WALL HERNIA OTHER SURGICAL HISTORY 02/20/2022 PROCEDURE: ---- OTHER ----; COMMENT: laparoscopic parastomal hernia repair PARASTOMAL HERNIA REPAIR CHOLECYSTECTOMY COLONOSCOPY COLON SURGERY Medical History Medical History Date Comments COPD (chronic obstructive pulmonary disease) (CM S/HCC) Hypertension Hypothyroidism KALE (obstructive sleep apnea) Depression Family History Medical History Relation Name Comments Colon cancer Paternal Grandmother Relation Name Status Comments Paternal Grandmother Social History Tobacco Use Types Packs/Day Years [...] file Not on file Not on file Obstetrics History Last Filed Vital Signs Vital Sign Reading [...] Mass Index 34.72 11/08/2024 8:18 AM EST Plan of Treatment Upcoming Encounters Date Type Department Care Team (Late st Contact Info) Description 01/07/2025 10:00 AM EDT Office Visit Gastroenterology - [address] [place] [address] [place] [phone] Garrett Shabazz MD [address] [place] [address] Health Maintenance Due Date Last Done Comments Breast Cancer Screening 1960 Cervical Cancer Screening: Pap Smear 1983 DTaP,Tdap,and Td Vaccines (2 - Td or Tdap) 10/29/2009 10/29/1999 Zoster Vaccines (1 of 2) 2012 Pneumococcal Vaccine: Pediatrics (0 to 5 Years) and At-Risk Patients (6 to 64 Years) (2 of 2 - PCV) 07/12/2012 07/12/2011 RSV Immunization Patients 60+ Years Old (1 - Risk 60-74 years 1-dose series) 2022 Depression Screening 09/29/2022 HIV Screening 09/29/2022 Hepatitis C Screening 09/29/2022 Medicare Annual Wellness Visit 09/29/2022 Social Influencers of Health Screening 09/29/2022 COVID-19 Vaccine ( season) 2024 09/24/2021, 01/11/2021, 12/01/2020 Influenza Vaccine (#1) 2024 , 07/12/2011, 08/07/2010, Additional history exists Hypertension/CHF/CAD Annual BMP Blood Test 10/21/2025 10/21/2024, 10/24/2023, 10/29/2021 Cholesterol Screening (Lipid Panel) 10/01/2028 10/01/2023, 10/01/2023 Colorectal Cancer Screening: Colonoscopy 11/08/2034 11/08/2024, 02/05/2024 HIB Vaccines Aged Out No longer eligi ble based on patient's age to complete this topic HPV Vaccines Aged Out No longer eligi ble based on patient's age to complete this topic Hepatitis A Vaccines Aged Out No long er eligible based on patient's age to complete this topic Hepatitis B Vaccines Aged Out No long er eligible based on patient's age to complete this topic IPV Vaccines Aged Out No longer eligi ble based on patient's age to complete this topic MMR Vaccines Aged Out No longer eligi ble based on patient's age to complete this topic Meningococcal ACWY Vaccine Aged Out N o longer eligible based on patient's age to complete this topic RSV Immunization Patients Under 20 months Aged Out No longer eligible based on patient's age to complete this topic Varicella Vaccines Aged Out No longer eligible based on patient's age to complete this topic Procedures Procedure Name Priority Date/Time Associated Diagnosis Comments COLONOSCOPY Routine 11/08/2024 8:55 AM EST History of colon polyps TISSUE EXAM Routine 11/08/2024 8:48 AM EST History of colon polyps LACTATE STAT 10/22/2024 1:10 AM EST ECG OUTSIDE 10/22/2024 CT ABDOMEN PELVIS W CONTRAST STAT 10/21/2024 9:51 PM EST CBC WITH AUTO DIFFERENTIAL STAT 10/21/2024 6:54 PM EST COMPREHENSIVE METABOLIC PANEL STAT 10/21/2024 6:54 PM EST CBC AND DIFFERENTIAL STAT 10/21/2024 6:54 PM EST PANCREATIC ELASTASE 1 Routine 10/07/2024 9:54 AM EST Diarrhea, unspecified type TISSUE TRANSGLUTAMINASE, IGA Routine 10/05/2024 11:18 AM EST Diarrhea, unspecified type IMMUNOGLOBULIN IGA Routine 10/05/2024 11 :18 AM EST Diarrhea, unspecified type LIPID PANEL Routine 10/01/2023 from Last 3 Months or Most Recently Relevant to Health Maintenance Results * COLONOSCOPY Anesthesia - MAC; [facility] [email or web address]] ENDOSCOPY (11/08/2024 8:55 AM EST) Anatomical Region [...] pathology results. Narrative 11/08/2024 8:59 AM EST [facility] GI Patient Name: Yu Morgan Procedure Date: [...] Procedure Code(s): ? --- Professional --- ? 48836, Colonoscopy, flexible; with biopsy, single or ? multiple CPT copyright 2020 [employer]. All rights reserved. The codes documented in this report are preliminary and upon paint booth operator review may be revised to meet current compliance requirements. MD Garrett Do MD 11/08/2024 8:59:29 AM This report has been signed electronically.Garrett Shabazz MD Number of Addenda: 0 Note Initiated On: 11/08/2024 8:40 AM Scope In: Scope Out: ? Endoscopy Department at [facility] - [address] [place] [address], ? [place] [address] Procedure Note Garrett Shabazz MD - 11/08/2024 [facility] GI Patient Name: Yu Morgan Procedure Date: [...] Findings: There was evidence of a prior pxy-wg-fxllhnu-colonic anastomosis in the sigmoid colon. This was patentand was characterized by healthy appearing mucosa. The anastomosis was traversed. The exam was otherwise without abnormality ondirect and retroflexion views. Clara-anal excoriationsnoted. Biopsies were taken with a cold forceps in therectum, in the sigmoid colon and in the distal ileum for histology. Procedure Code(s): --- Professional --- 01858, Colonoscopy, flexible; with biopsy, singleor multiple CPT copyright 2020 [employer]. All rights reserved. The codes documented in this report are preliminary and upon paint booth operator reviewmay be revised to meet current compliance requirements. MD Garrett Do MD 11/08/2024 8:59:29 AM This report has been signed electronically.Garrett Shabazz MD Number of Addenda: 0 Note Initiated On: 11/08/2024 8:40 AM Scope In: Scope Out: Endoscopy Department at [facility] - [address] [place] [phone] IMPRESSION: - Patent end-to-end ileo-colonic anastomosis, characterized [...] diagnostic histopathologic change. 11/09/2024 8:26 AM EST [facility] Gross Description A. Colon, biopsies of [...] survive processing. dvb/DG 11/09/2024 8:26 AM EST [facility] Disclaimer Unless otherwise specified, all tissue is 10% NB formalin fixed and paraffin embedded. 11/09/2024 8:26 AM [facility] Tissue (Colon) 11/08/2024 8: 48 AM EST 11/08/2024 11:13 AM EST Tissue specimen (specimen) (Colon) 11/08/2024 8:49 AM EST 11/08/2024 11:13 AM EST Garrett Shabazz MD LAB PATHOLOGY ORDERA BLES [facility] Organization Address City/State/ZIP Co de Phone Number [facility] [address] [place] [address], * Lactate (10/22/2024 1:10 AM EST) Lactate 1.8 0.4 - 2.0 mmol/L LAB CHEMISTRY METHOD 10/22/2024 1:38 AM EST [facility] Blood Venous blood specimen / Unknown Venipuncture / Unknown 10/22/2024 1:10 AM EST 10/22/2024 1:15 AM EST Lobito Mukesh Nallely PA LAB BLOOD ORDERAB LES [facility] ([facility] [[email or web address] [address] [place] [address], * ECG-Outside (10/22/2024) Provider Onbase MD ECG ORDERABLES * CT Abdomen Pelvis w Contrast (10/21/2024 9:51 PM EST) Anatomical Region Laterality Modality Body Computed Tomogra phy 10/21/2024 11:0 3 PM EST Addenda Addendum by Alfredito Parikh MD on 10/21/2024 11:08 PM EST ADDENDUM: This report was discussed with Dr. Lewis on Oct 21, 2024 23:08:00 EST. This document has been electronically signed by: Ericka Villafana on 10/21/2024 23:08:55 Impressions 10/21/2024 11:03 PM EST Impression: Midline ventral hernia contains mildly dilated bowel Stranding noted in fat and hernia orifice Additional hernias contain fat with stranding Developing incarceration is not excludable at any site No intra-abdominal bowel distention This document has been electronically signed by: Alfredito Parikh MD on 10/21/2024 23:03:09 Narrative 10/21/2024 11:[address] abdomen and pelvis with contrast Comparison: None Findings: Multiple ventral wall hernias noted. Several contain fat with nonspecific stranding. Midline hernia contains dilated bowel. Stranding noted in mesentery at hernia orifice. No intra-abdominal bowel distention is identified. Developing incarceration is not excludable. Lung bases are clear. No acute bony abnormalities. Degenerative change spine and hips. Liver and spleen within normal limits. Pancreas and adrenal glands unremarkable. Cholecystectomy. Bilateral kidneys demonstrate no focal abnormality. Renal cysts without stones or hydronephrosis. Abdominal aorta is normal in caliber. No free fluid or adenopathy in the pelvis. No acute diverticulitis. Appendix not identified. Hysterectomy. No adnexal abnormality. Procedure Note Alfredito Parihk MD - 10/21/2024 CT abdomen and pelvis with contrast Comparison: None Findings: Multiple ventral wall hernias noted. Several contain fat with nonspecific stranding. Midline hernia contains dilated bowel. Stranding noted in mesentery at hernia orifice. No intra-abdominal bowel distention is identified. Developing incarceration is not excludable. Lung bases are clear. No acute bony abnormalities. Degenerative change spine and hips. Liver and spleen within normal limits. Pancreas and adrenal glands unremarkable. Cholecystectomy. Bilateral kidneys demonstrate no focal abnormality. Renal cysts without stones or hydronephrosis. Abdominal aorta is normal in caliber. No free fluid or adenopathy in the pelvis. No acute diverticulitis. Appendix not identified. Hysterectomy. No adnexal abnormality. IMPRESSION: Impression: Midline ventral hernia contains mildly dilated bowel Stranding noted in fat and hernia orifice Additional hernias contain fat with stranding Developing incarceration is not excludable at any site No intra-abdominal bowel distention This document has been electronically signed by: Alfredito Parikh MD on 10/21/2024 23:03:[address] PROCEDURES * CBC auto differential (10/21/2024 6:54 PM EST) WBC 7.6 4.8 - 10.8 K/mcL LAB HEMETOLOGY METHOD 10/21/2024 7:54 PM [facility] RBC 4.10 3.80 - 4.80 M/mcL LAB HEMETOLOGY METHOD 10/21/2024 7:54 PM [facility] Hemoglobin 12.2 11.5 - 16.0 g/dL LAB HEMETOLOGY METHOD 10/21/2024 7:54 PM [facility] Hematocrit 36.8 35.0 - 47.0 % LAB HEMETOLOGY METHOD 10/21/2024 7:54 PM [facility] MCV 90.4 79.0 - 98.0 FL LAB HEMETOLOGY METHOD 10/21/2024 7:54 PM [facility] MCH 30.0 27.0 - 32.0 pcg LAB HEMETOLOGY METHOD 10/21/2024 7:54 PM [facility] MCHC 33.2 32.0 - 37.0 g/dL LAB HEMETOLOGY METHOD 10/21/2024 7:54 PM [facility] RDW 13.4 11.0 - 15.0 % LAB HEMETOLOGY METHOD 10/21/2024 7:54 PM [facility] Platelets 274 130 - 400 K/mcL LAB HEMETOLOGY METHOD 10/21/2024 7:54 PM [facility] MPV 9.9 7.0 - 11.0 FL LAB HEMETOLOGY METHOD 10/21/2024 7:54 PM [facility] NRBC 0.0 <1.0 % LAB HEMETOLOGY METHOD 10/21/2024 7:54 PM [facility] NRBC Absolute 0.00 <0.10 K/mcL LAB HEMETOLOGY METHOD 10/21/2024 7:54 PM [facility] Neutrophils Relative 48.0 % LAB HEMETOLOGY METHOD 10/21/2024 7:54 PM [facility] Lymphocytes Relative 37.3 % LAB HEMETOLOGY METHOD 10/21/2024 7:54 PM [facility] Monocytes Relative 10.8 % LAB HEMETOLOGY METHOD 10/21/2024 7:54 PM [facility] Eosinophils Relative 2.8 % LAB HEMETOLOGY METHOD 10/21/2024 7:54 PM [facility] Basophils Relative 0.8 % LAB HEMETOLOGY METHOD 10/21/2024 7:54 PM [facility] Immature Granulocytes Relative 0.3 % LAB HEMETOLOGY METHOD 10/21/2024 7:54 PM [facility] Neutrophils Absolute 3.67 1.50 - 7.00 K/mcL LAB HEMETOLOGY METHOD 10/21/2024 7:54 PM [facility] Lymphocytes Absolute 2.84 1.00 - 5.00 K/mcL LAB HEMETOLOGY METHOD 10/21/2024 7:54 PM EST [facility] Monocytes Absolute 0.82 0.20 - 1.00 K/mcL LAB HEMETOLOGY METHOD 10/21/2024 7:54 PM EST [facility] Eosinophils Absolute 0.21 0.00 - 0.50 K/mcL LAB HEMETOLOGY METHOD 10/21/2024 7:54 PM EST [facility] Basophils Absolute 0.06 0.00 - 0.20 K/mcL LAB HEMETOLOGY METHOD 10/21/2024 7:54 PM [facility] Immature Granulocytes Absolute 0.02 0.00 - 0.03 K/mcL LAB HEMETOLOGY METHOD 10/21/2024 7:54 PM [facility] Blood Venous blood specimen / Unknown Venipuncture / Unknown 10/21/2024 6:54 PM EST 10/21/2024 7:49 PM EST Kiran Collins MD LAB BLOOD ORDERABLES [facility] [address] [place] [address], * (ABNORMAL) Comprehensive metabolic panel (10/21/2024 6:54 PM EST) Sodium 135 133 - 145 mmol/L LAB CHEMISTRY METHOD 10/21/2024 8:27 PM [facility] Potassium 3.6 3.5 - 5.5 mmol/L LAB CHEMISTRY METHOD 10/21/2024 8:27 PM [facility] Comment:Hemolysis present Chloride 101 96 - 110 mmol/L LAB CHEMISTRY METHOD 10/21/2024 8:27 PM [facility] CO2 25 21 - 32 mmol/L LAB CHEMISTRY METHOD 10/21/2024 8:27 PM [facility] Anion Gap 9 3 - 11 LAB CHEMISTRY METHOD 10/21/2024 8:27 PM [facility] Glucose 129(H) 70 - 100 mg/dL LAB CHEMISTRY METHOD 10/21/2024 8:27 PM [facility] BUN 6 5 - 25 mg/dL LAB CHEMISTRY METHOD 10/21/2024 8:27 PM [facility] Creatinine 0.85 0.50 - 1.10 mg/dL LAB CHEMISTRY METHOD 10/21/2024 8:27 PM [facility] eGFR 78 >=60 mL/min/1. 73m2 LAB CHEMISTRY METHOD 10/21/2024 8:27 PM [facility] Comment:Calculation based on the??Chronic Kidney Disease Epidemiology Collaboration (CKD-EPI) equation refit??without adjustment for race. BUN/Creatinine Ratio 7.1 LAB CHEMISTRY METHOD 10/21/2024 8:27 PM [facility] Calcium 8.6 8.5 - 10.5 mg/dL LAB CHEMISTRY METHOD 10/21/2024 8:27 PM [facility] AST (SGOT) 20 10 - 42 unit/L LAB CHEMISTRY METHOD 10/21/2024 8:27 PM [facility] Comment:Hemolysis present ALT (SGPT) 26 10 - 60 unit/L LAB CHEMISTRY METHOD 10/21/2024 8:27 PM [facility] Alkaline Phosphatase 122(H) 42 - 121 unit/L LAB CHEMISTRY METHOD 10/21/2024 8:27 PM [facility] Total Protein 6.3 6.0 - 8.0 g/dL LAB CHEMISTRY METHOD 10/21/2024 8:27 PM [facility] Albumin 3.6 3.2 - 5.0 g/dL LAB CHEMISTRY METHOD 10/21/2024 8:27 PM [facility] Total Bilirubin 0.2 0.0 - 1.4 mg/dL LAB CHEMISTRY METHOD 10/21/2024 8:27 PM [facility] Blood Venous blood specimen / Unknown Venipuncture / Unknown 10/21/2024 6:54 PM EST 10/21/2024 7:49 PM EST Kiran Collins MD LAB BLOOD ORDERABLES [facility] [address] [place] [address], * (ABNORMAL) Pancreatic elastase 1 (10/07/2024 9:54 AM EST) Pancreatic Elastase 1 35.2(L) >200 mcg/g 10/11/2024 1:23 PM EST [facility] Comment: Adult and Pediatric Referance Ranges for Pancreatic Elastase-1: Normal: ? >200 mcg/g Moderate Pancreatic Insufficiency: ?100-200 mcg/g Severe Pancreatic Insufficiency: ?<100 mcg/g Test performed at [facility], [address] [place], [place] ??[address] ? [phone] Lacey Cabrera MD, PhD - Packing Floor Worker Stool Rectum structure / Unknown Non-blood Collection / Unknown 10/07/2024 9:54 AM EST 10/07/2024 11:36 AM EST Garrett Shabazz MD LAB BODY FLUIDS AND STOOLS ORDERABLES [facility] [address] [place] [address] * Tissue transglutaminase, IgA (10/05/2024 11:18 AM EST) Tissue Transglutaminase Ab, IgA Quant 1 <4 unit/mL LAB CHEMISTRY METHOD 10/06/2024 1:33 PM EST [facility] Tissue Transglutaminase Ab, IgA Negative Negative LAB CHEMISTRY METHOD 10/06/2024 1:33 PM EST [facility] Blood Venous blood specimen / Unknown Venipuncture / Unknown 10/05/2024 11:18 AM EST 10/05/2024 12:02 PM EST Garrett Shabazz MD LAB BLOOD ORDERABLES Performing Organization Address [facility]/ZIP Co de Phone Number [facility] [address] [place] [address], * Immunoglobulin IgA (10/05/2024 11:18 AM EST) [facility] IgA 165 61 - 348 mg/dL LAB CHEMISTRY METHOD 10/05/2024 12:54 PM EST [facility] Blood Venous blood specimen / Unknown Venipuncture / Unknown 10/05/2024 11:18 AM EST 10/05/2024 12:03 PM EST Garrett Shabazz MD LAB BLOOD ORDERABLES Performing Organization Address [facility] de Phone Number [facility] [address] [place] [address], [place] [phone] * Lipid panel (10/01/2023) [facility] LDL/HDL Ratio 0 Comment:No Interpretation, A bstracted Triglycerides 0 mg/dL Comment:No Interpretation, A bstracted Cholesterol 0 mg/dL Comment:No Interpretation, A bstracted HDL 0 mg/dL Comment:No Interpretation, A bstracted LDL Cholesterol 0 mg/dL Comment:No Interpretation, A bstracted Blood Venous blood specimen / Unknown Historical Provider LAB BLOOD ORDERAB LES from Last 3 Months or Most Recently Relevant to Health Maintenance Advance Directives Documents on File Type Date Recorded Patient Jack Prizer Expl anation Health Care Decision (hx) 11/03/2022 AD LO DIRECTIVE Health Care Decision (hx) 11/03/2022 AD LO DIRECTIVE Health Care Decision (hx) 11/03/2022 AD LO DIRECTIVE Health Care Decision (hx) 11/03/2022 AD LO DIRECTIVE Health Care Decision (hx) 11/03/2022 AD LO DIRECTIVE Health Care Decision (hx) 11/03/2022 AD LO DIRECTIVE Health Care Decision (hx) 11/03/2022 AD LO DIRECTIVE Health Care Decision (hx) 11/03/2022 AD LO DIRECTIVE Health Care Decision (hx) 11/03/2022 AD LO DIRECTIVE Health Care Decision (hx) 11/03/2022 AD LO DIRECTIVE Health Care Decision (hx) 10/29/2022 AD LO DIRECTIVE Health Care Decision (hx) 10/29/2022 AD LO DIRECTIVE Health Care Decision (hx) 10/29/2022 AD LO DIRECTIVE Health Care Decision (hx) 10/29/2022 AD LO DIRECTIVE Health Care Decision (hx) 10/29/2022 AD LO DIRECTIVE Health Care Decision (hx) 10/29/2022 AD LO DIRECTIVE Health Care Decision (hx) 10/29/2022 AD LO DIRECTIVE Health Care Decision (hx) 10/29/2022 AD LO DIRECTIVE Health Care Decision (hx) 10/29/2022 AD LO DIRECTIVE Health Care Decision (hx) 10/29/2022 AD LO DIRECTIVE Health Care Decision (hx) 09/13/2019 AD LO DIRECTIVE * Full Code - Default (Latest Code Status on File) Date Activated Date Inactivated Comments 10/22/2024 1:08 AM 10/22/2024 6:48 PM This is or katie is used when code status has not been discussed with the patient, or code status is otherwise unknown/unconfirmed To update the patient's code status, place a code status order. Do not modify or discontinue any currently active code status orders. Care Teams Wild Animal Caretaker Relationship Specialty Start Date End Date Jigar Patel PA [address] [place], [place] [phone] PCP - General 02/26/23
--- OUTSIDE RECORDS SUMMARY | 2024-11-26 11:23 | XMS_ITS | Encounter Summary ---
Author Organization [facility] Address [address] [place] [address] Care Team Providers Care Digester Operator Helper Name Role Phone Jigar Patel Primary Care Provider Encounter Details Date Type Department Care Team (Late st Contact Info) Description 11/08/2024 8:39 AM EST Anesthesia Event [facility] Endoscopy [address] [place] [address] Monica Hernandez MD [address] [place] [address] Anesthesia Record Procedure Summary Procedure Name Responsible Anesthesiologist Anesthesia Start Time Anesthesia Stop Time COLONOSCOPY Monica Hernandez MD 11/08/24 0839 0858 Events Date Time Event Comment 11/08/2024 0829 0839 In Room 0839 An Start 0839 An Start Data The patient wa s reevaluated immediately before moderate or deep sedation use and before anesthesia induction. 0840 Anesthesia Ready 0852 an stop data 0855 Out of Room 0858 Handoff to RN I completed my handoff to the receiving nurse during which we: 1. Identified the patient 2. Identified the responsible provider 3. Reviewed the pertinent medical history 4. Discussed the surgical course 5. Reviewed intra-op anesthesia management and issues during anesthesia 6. Set expectations for post-procedure period 7. Allowed opportunity for questions and acknowledgement of understanding. 0858 An Stop Meds Name Total propofol (DIPRIVAN) injection 10 mg/mL 1 50 mg lactated Ringer's infusion 300 mL * Agents No agents on file. * Blood No blood administrations on file. Lines, Drains, and Airways Type Details Placement Removal Peripheral IV Placement Date: 10/27 01/18; Placement Time: 812; Catheter Size: 20 G; Orientation: Posterior, Right; Location: Hand; Removal Date: 11/08/24; Removal Time: 0911/08/24 08 by Amada Boss RN 11/08/24 09 by Kristi Kim RN documented in this encounter Social History Tobacco Use Types Packs/Day Years Used Date Smoking Tobacco: Some Days Cigarettes 0.3 46.6 Started: 04/13/1978 Smokeless Tobacco: Never Alcohol Use Standard Drinks/Week Comments No 0 [...] on file documented as of this encounter Functional Status Functional Status Response [...] No 10/21/2024 documented as of this encounter Progress Notes * Aiden Wang CRNA - 11/08/2024 8:59 AM EST Patient: Yu Morgan Procedure Summary Date: 11/08/24 Room / Location: [facility] Endoscopy Anesthesia Start: 838 Anesthesia Stop: 857 Procedure: COLONOSCOPY Diagnosis: History of colon polyps Scheduled Providers: Garrett Shabazz MD; Monica Hernandez MD; Aiden Wang CRNA Responsible Provider: Monica Hernandez MD Anesthesia Type: MAC ASA Status: 3 Anesthesia Plan: MAC Visit Vitals BP 132/72 Pulse 96 Temp 36.7 ??C (98 ??F) Resp 18 Ht 1.6 m (63 ) Wt 88.9 kg (196 lb) SpO2 97% BMI 34.72 kg/m?? OB Status Postmenopausal Smoking Status Some Days BSA 1.92 m?? Anesthesia Post Evaluation Patient location during evaluation: PACU Patient participation: complete - patient participated Level of consciousness: awake and alert Pain score: 0 Pain management: adequate Airway patency: patent Anesthetic complications: no Cardiovascular status: acceptable Respiratory status: acceptable Hydration status: acceptable Nausea: No Vomiting: No There were no known notable events for this encounter. * Monica Hernandez MD - 11/08/2024 8:26 AM EST Relevant Problems Pulmonary (+) COPD (chronic obstructive pulmonary disease) (CMS/HCC) (+) KALE (obstructive sleep apnea) Clinical information reviewed: Tobacco Allergies Meds Med Hx Surg Hx OB Status Fam Hx Soc Hx Anesthesia Plan ASA 3 Anesthesia Plan: MAC Anesthesia Risks Discussed serious complications Plan Factors Patient is a current smoker Induction method: intravenous Anesthetic plan and risks discussed with patient. Anesthesia Plan discussed with attending. 64 y.o. female scheduled for [COLONOSCOPY [GI6]] Ht Readings from Last 1 Encounters: 11/08/24 1.6 m (63 ) Wt Readings from Last 1 Encounters: 11/08/24 88.9 kg (196 lb) Body mass index is 34.72 kg/m??. Past Medical History: Diagnosis Date COPD (chronic obstructive pulmonary disease) (CMS/HCC) Depression Hypertension Hypothyroidism KALE (obstructive sleep apnea) Past Surgical History: Procedure Laterality Date CHOLECYSTECTOMY COLON SURGERY COLONOSCOPY HERNIA REPAIR PROCEDURE: NV REPAIR FIRST ABDOMINAL WALL HERNIA OTHER SURGICAL HISTORY 02/20/2022 PROCEDURE: ---- OTHER ----; COMMENT: laparoscopic parastomal hernia repair PARASTOMAL HERNIA REPAIR Denies anesthesia complications Allergies Allergen Reactions Doxycycline Nsaids (Non-Steroidal Anti-Inflammatory Drug) Penicillins Current Outpatient Medications on File Prior to Encounter Medication Sig Dispense Refill diazePAM (VALIUM) 10 mg tablet apixaban (ELIQUIS) 5 mg tablet Take 1 tablet (5 mg total) by mouth 2 (two) times a day. diphenoxylate-atropine (LOMOTIL) 2.5-0.025 mg per tablet TAKE 2 TABLETS BY MOUTH THREE TIMES DAILY NEEDED 180 tablet 4 ergocalciferol, vitamin D2, 50 mcg (2,000 unit) capsule Take 1 Cap by mouth daily. esomeprazole (NexIUM) [address] capsule TAKE 1 CAPSULE BY MOUTH TWICE DAILY 56 capsule 3 folic acid (FOLVITE) 1 mg tablet Take 1 Tab by mouth daily. levothyroxine (SYNTHROID, LEVOTHROID) 50 mcg tablet lidocaine (XYLOCAINE) 5 % ointment APPLY A SMALL AMOUNT TO AFFECTED AREA ON RECTUM 3 TIMES DAILY ASNEEDED 49.222 g 2 mpxqwg-zbwnrihj-yxifjnd (Creon) 36,000-114,000- 180,000 unit capsule,delayed release(DR/EC) Take 2 capsules by mouth 4 (four) times a day. 600 capsule 3 lisinopril-hydroCHLOROthiazide (PRINZIDE,ZESTORETIC) 20-12.5 mg per tablet Take 1 [...] Max Daily Amount: 20 mg 10 tablet 0 pantoprazole (PROTONIX) 40 mg EC tablet prazosin (MINIPRESS) 5 mg capsule [DISCONTINUED] diazePAM (VALIUM) 10 mg tablet Take 1 Tab by mouth every 8 hours as needed. [DISCONTINUED] ondansetron ODT (ZOFRAN-ODT) 4 mg disintegrating tablet Dissolve 1 tablet (4 mg total) on top of the tongue every 8 (eight) hours if needed for nausea or vomiting. (Patient not taking:Reported on 10/26/2024) 20 tablet 0 [DISCONTINUED] prazosin (MINIPRESS) 2 mg capsule Take 1 Cap by mouth 2 times daily. (Patient not taking: Reported on 10/05/2024) [DISCONTINUED] semaglutide (Wegovy) 0.25 mg/0.5 mL injection pen Inject 0.25 mg into the skin once a week. (Patient not taking: Reported on 10/05/2024) [DISCONTINUED] sucralfate (CARAFATE) 1 gram tablet Take 1 Tab by mouth 2 times daily (before meals). (Patient not taking: Reported on 10/22/2024) Current Facility-Administered Medications on File Prior to Encounter Medication Dose Route Frequency Provider Last Rate Last Admin loperamide (IMODIUM) capsule 2 mg 2 mg oral 4x daily PRN Garrett Shabazz MD Current In-hospital Medications PRN medications: loperamide Social History Tobacco Use Smoking status: Some Days Current packs/day: 0.25 Average packs/day: 0.3 packs/day for 46.6 years (11.6 ttl pk-yrs) Types: Cigarettes Start date: 04/13/1978 Smokeless tobacco: Never Substance Use Topics Alcohol use: No Drug use: No Is the patient a current smoker (e.g. cigarette, cigar, pip, e-cigarette, or mariajuana)? Yes [] No[] Patient previously instructed to abstain from smoking on the day of procedure? Yes [] No[] Patient smoked on the day of procedure? Yes [] No[] ASPIRE smoking VBR: [] Not interested in quitting [] Interested in quitting- referred to treatment [] Interested in quitting - treatment provided Visit Vitals BP 132/72 Pulse 96 Temp 36.7 ??C (98 ??F) Resp 18 Ht 1.6 m (63 ) Wt 88.9 kg (196 lb) SpO2 97% BMI 34.72 kg/m?? Smoking Status Some Days BSA 1.92 m?? Available cardiac studies reviewed: CT Abdomen Pelvis w Contrast Addendum Date: 10/21/2024 Addendum: ADDENDUM: This report was discussed with Dr. Lewis on Oct 21, 2024 23:08:00 EST. This document has been electronically signed by: Ericka Villafana on 10/21/2024 23:08:55 Result Date: 10/21/2024 Narrative: CT abdomen and pelvis with contrast Comparison: [...] Appendix not identified. Hysterectomy. No adnexal abnormality. Impression: Impression: Midline ventral hernia contains mildly dilated bowel Stranding noted in fatand hernia orifice Additional hernias contain fat with stranding Developing incarceration is not excludable at any site No intra- abdominal bowel distention This document has been electronically signed by: Alfredito Parikh MD on 10/21/2024 23:03:09 EKG No results found for this or any previous visit (from the past 4464 hour(s)). ECHO No results found for this or any previous visit. CATH No results found for this or any previous visit. LABS: Lab Results Component Value Date WBC 7.6 10/21/2024 HGB 12.2 10/21/2024 HCT 36.8 10/21/2024 MCV 90.4 10/21/2024 PLT 274 10/21/2024 Lab Results Component Value Date GLUCOSE 129 (H) 10/21/2024 CALCIUM 8.6 10/21/2024 NA 135 10/21/2024 K 3.6 10/21/2024 CO2 25 10/21/2024 CL 101 10/21/2024 BUN 6 10/21/2024 CREATININE 0.85 10/21/2024 No results found for: INR , PROTIME No results found for: PTT COPD- oxygen prn- not using regularly H/O blot clot HTN- denies chest pain. WA Hypothyroid on replacement Denies cardiac, pulm, neuro, hepatic or renal s/sx. Patient meets ASA guidelines for NPO status. > 4 mets without anginal symptoms. Relevant labs, vitals, imaging, cardiac and pulmonary studies as well as HPI, Meds, Allergies, ROS,PMH, PSH, SH, and FH reviewed. Anesthesia Evaluation No history of anesthetic complications Airway Mallampati: III Dental (+) upper dentures Pulmonary breath sounds clear to auscultation (+) COPD, sleep apnea Cardiovascular (+) hypertension Rhythm: regular Neuro/Psych Mental Status: alert and oriented GI/Hepatic/Renal Endo/Other (+) hypothyroidism Abdominal PONV RISK SCORE: 2 Vitals: 11/08/24 0818 BP: 132/72 Pulse: 96 Resp: 18 Temp: 36.7 ??C (98 ??F) SpO2: 97% Weight: 88.9 kg (196 lb) Height: 1.6 m (63 ) SpO2 Readings from Last 1 Encounters: 11/08/24 97% WBC Date Value Ref Range Status 10/21/2024 7.6 4.8 - 10.8 K/mcL Final RBC Date Value Ref Range Status 10/21/2024 4.10 3.80 - 4.80 M/mcL Final Hemoglobin Date Value Ref Range Status 10/21/2024 12.2 11.5 - 16.0 g/dL Final Hematocrit Date Value Ref Range Status 10/21/2024 36.8 35.0 - 47.0 % Final Platelets Date Value Ref Range Status 10/21/2024 274 130 - 400 K/mcL Final MCV Date Value Ref Range Status 10/21/2024 90.4 79.0 - 98.0 FL Final Allergies Allergen Reactions Doxycycline Nsaids (Non-Steroidal Anti-Inflammatory Drug) Penicillins STOP BANG: No data recorded NPO Status: Time of Last Liquid: 0400 Time of Last Solid: 1900 documented in this encounter Plan of Treatment Upcoming Encounters Date Type Department Care Team (Late st Contact Info) Description 01/07/2025 10:00 AM EDT Office Visit Gastroenterology - [address] [place] [phone] Garrett Shabazz MD [address] [place] [address] documented as of this encounter Visit Diagnoses Not on filedocumented in this encounter Administered Medications Inactive Administered Medications - up to 3 most recent administrations Medication Order MAR Action Action Date Dose Rate Site lactated Ringer's infusion intravenous, Continuous PRN, Starting on Fri11/08/24 at 0840, Anesthesia Intraprocedure Rate/Dose Change 11/08/2024 8:55 AM EST 250 mL/hr New Bag 11/08/2024 8:40 AM EST 75 mL/hr propofoL (DIPRIVAN) injection intravenous, As needed, Starting on Fri11/08/24 at 0845, Anesthesia Intraprocedure Given 11/08/2024 8:49 AM EST 5 0 mg Given 11/08/2024 8:45 AM EST 100 mg documented in this encounter Care Teams Digester Operator Helper Relationship Specialty Start Date End Date Jigar Patel PA [address] [place] [address] PCP - General 02/26/23 documented as of this encounter
--- OUTSIDE RECORDS SUMMARY | 2024-11-26 11:23 | XMS_ITS | Encounter Summary ---
Author Organization [facility] Address [address] [place] [address] Care Team Providers Care Bleacher Operator Name Role Phone Jigar Patel Primary Care Provider Encounter Details Date Type Department Care Team (Late st Contact Info) Description 10/22/2024 Telephone Gastroenterology - [address] [place] [phone] Garrett Shabazz MD [address] [place] [address] Social History Tobacco Use Types Packs/Day Years Used Date Smoking Tobacco: Some Days Cigarettes Started: 04/13/1978 Smokeless Tobacco: Never Alcohol Use [...] as of this encounter Progress Notes * Desiree Napier - 10/22/2024 9:10 AM EST PT CALLED TO INFORM YOU THAT SHE DID GO TO THE ER LAST NIGHT AND SHE HAS BEEN ADMITTED, STATES SHE'S NOT OVERLY FOND OF THE SURGEON THAT WAS CONSULTED SHE'S HAD HIM BEFORE AND HE ISN'T HELPFUL documented in this encounter Plan of Treatment Upcoming Encounters Date Type Department Care Team (Late st Contact Info) Description 01/07/2025 10:00 AM EDT Office Visit Gastroenterology - [address] [place] [phone] Garrett Shabazz MD [address] [place] [phone] documented as of this encounter Visit Diagnoses Not on filedocumented in this encounter Additional Health Concerns Infection Onset Date Last Indicated Resolved Time Gastrointestinal Rule-Out Comment:No testing required per PA 10/22/2024 10/22/202410/22 12:30 PM EST documented as of this encounter Care Teams Bleacher Operator Relationship Specialty Start Date End Date Jigar Patel PA [address] [place] [address] PCP - General 02/26/23 documented as of this encounter
== END 2024-11-26 11:34 | disposition home or self-care (01) ==
PROVIDERS: PCP Physician Assistant; Visit Provider Physician Assistant Medical
DX: F17.210 Nicotine dependence, cigarettes, uncomplicated (principal)
CPT/HCPCS: G0296

== ENCOUNTER 2024-11-26 11:03 | Outpatient (REF) | payer OTHER, SELFPAY ==
--- NOTE | ~2024-11-26 | CT_ITS ---
CLINICAL HISTORY: F17.210 - Nicotine dependence, cigarettes, uncomplicated CT lung cancer screening (LDCT) Comparison: CT/REG/OT - CT CHEST WO CON - 05/15/21 13:38 EDT Technique: Axial CT images of the chest using low-dose technique. Referring provider counseled the patient on shared decision-making for LDCT screening. Additional counseling was provided on smoking cessation. Effective radiation dose total: DLP 131.8 mGycm, CTDIvol 4 mGy. Findings: Lung: No evidence of pneumonia nor edema. Mild apical predominant emphysema. Stable bilateral pulmonary nodules. For example, no change in the 2 mm subpleural nodule within the left lower lobe posterolaterally (image 280). No new pulmonary nodules. Coronary artery calcifications: Mild Limited upper abdomen: Unremarkable Other: None Impression: 1. Coronary artery disease. 2. LungRADS 2 - Benign Appearance: Continue annual screening with low dose Chest CT in 12 months. ##L2# Category 1: Normal; continue annual screening Category 2: Benign appearance or behavior, continue annual screening Category 3: Probably benign, [address] recommended Category 4A: Suspicious, [address] recommended; may consider PET/CT Category 4B: Suspicious, Additional diagnostics and/or tissue sampling recommended Category 4X: Suspicious, Additional diagnostics and/or tissue sampling recommended Category 0: Recalls (incomplete screen due to Incomplete coverage, Noise, Respiratory motion, Expiration, Obscured by acute abnormality) This document has been electronically signed by: Isabel Morelos MD on 11/26/2024 19:00:36
--- OUTSIDE RECORDS SUMMARY | 2024-11-26 11:57 | XMS_ITS | Encounter Summary ---
Author Organization [facility] Address [address] [place] [address] Care Team Providers Care Parts Counterman Name Role Phone Jigar Patel Primary Care Provider Reason for Referral * Hospital - Outpatient (Routine) - Closed Specialty Diagnoses / Procedures Referred By Mary ball Referred To Contact Gastroenterology Diagnoses History of colon polyps Procedures COLONOSCOPY Anesthesia - MAC; [facility] ENDOSCOPY Garrett Shabazz MD [address] [address] [facility] Endoscopy [address] [place] [phone] Referral ID Status Reason Start Date Expiration Date Visits Re quested Visits Authorized [id number] Closed 10/26/2024 10/26/2025 1 1 Reason for Visit * Hospital - Outpatient (Routine) - Closed Specialty Diagnoses / Procedures Referred By Mary ball Referred To Contact Gastroenterology Diagnoses History of colon polyps Procedures COLONOSCOPY Anesthesia - MAC; [facility] ENDOSCOPY Garrett Shabazz MD [address] [address] [facility] Endoscopy [address] [place] [phone] Referral ID Status Reason Start Date Expiration Date Visits Re quested Visits Authorized [id number] Closed 10/26/2024 10/26/2025 1 1 Encounter Details Date Type Department Care Team (Late st Contact Info) Description 11/08/2024 7:28 AM EST - 11/08/2024 11:59 PM EST Hospital Encounter [facility] Endoscopy [address] [place] [address] Garrett Shabazz MD [address] [address] Monica Hernandez MD [address] [place] [address] Aiden Wang CRNA [address] [place] [address] History of colon polyps Discharge [...] sent through Care Everywhere. * Colonoscopy: Post-op (Danish) documented in this encounter Medications at Time of Discharge Medication Sig Dispensed Refills Start Date End Date apixaban (ELIQUIS) 5 mg tablet Take 1 tablet (5 mg total) by mouth 2 (two) times a day. diazePAM (VALIUM) 10 mg tablet diphenoxylate-atropine (LOMOTIL) 2.5-0.025 mg per tabletIndications:Diarrhe a [...] TIMES DAILY NEEDED 49.222 g 2 09/16/2024 cecskt-mwymwktd-jjuzucs (Creon) 36,000-114,000- 180,000 unit capsule,delayed release(DR/EC)Indications :Pancreatic [...] Office Visit Gastroenterology - [address] [place] [phone] Garrett Shabazz MD [address] [place] [address] documented as of this encounter Procedures Procedure Name Priority Date/Time Associated Diagnosis Comments COLONOSCOPY Routine 11/08/2024 8:55 AM EST History of colon polyps TISSUE EXAM Routine 11/08/2024 8:48 AM EST History of colon polyps documented in this encounter Results * COLONOSCOPY Anesthesia - MAC; [facility] ENDOSCOPY (11/08/2024 8:55 AM EST) Anatomical Region [...] pathology results. Narrative 11/08/2024 8:[address] [facility] GI Patient Name: Yu Morgan Procedure Date: [...] Procedure Code(s): ? --- Professional --- ? 96067, Colonoscopy, flexible; with biopsy, single or ? multiple CPT copyright 2021 [employer]. All rights reserved. The codes documented in this report are preliminary and upon dry end tester review may be revised to meet current compliance requirements. MD Garrett Do MD 11/08/2024 8:59:29 AM This report has been signed electronically.Garrett Shabazz MD Number of Addenda: 0 Note Initiated On: 11/08/2024 8:40 AM Scope In: Scope Out: ? Endoscopy Department at [facility] - [address] [place] [address], ? [place] [address] Procedure Note Garrett Shabazz MD - 11/08/2024 [facility] Patient Name: Yu Morgan Procedure Date: [...] Findings: There was evidence of a prior wte-ku-fovsfia-colonic anastomosis in the sigmoid colon. This was patentand was characterized by healthy appearing mucosa. The anastomosis was traversed. The exam was otherwise without abnormality ondirect and retroflexion views. Clara-anal excoriationsnoted. Biopsies were taken with a cold forceps in therectum, in the sigmoid colon and in the distal ileum for histology. Procedure Code(s): --- Professional --- 78461, Colonoscopy, flexible; with biopsy, singleor multiple CPT copyright 2020 [employer]. All rights reserved. The codes documented in this report are preliminary and upon dry end tester reviewmay be revised to meet current compliance requirements. MD Garrett Do MD 11/08/2024 8:59:29 AM This report has been signed electronically.Garrett Shabazz MD Number of Addenda: 0 Note Initiated On: 11/08/2024 8:40 AM Scope In: Scope Out: Endoscopy Department at [facility] - [address] [place] [phone] IMPRESSION: - Patent end-to-end ileo-colonic anastomosis, characterized [...] diagnostic histopathologic change. 11/09/2024 8:26 AM EST [facility] Gross Description A. Colon, biopsies of [...] survive processing. dvb/DG 11/09/2024 8:26 AM EST [facility] ([facility]) [facility] Disclaimer Unless otherwise specified, all tissue is 10% NB formalin fixed and paraffin embedded. 11/09/2024 8:26 AM EST [facility] Tissue (Colon) 11/08/2024 8: 48 AM EST 11/08/2024 11:13 AM EST Tissue specimen (specimen) (Colon) 11/08/2024 8:49 AM EST 11/08/2024 11:13 AM EST Garrett Shabazz MD LAB PATHOLOGY [facility]) [facility] [address] [place] [address], documented in this encounter Visit Diagnoses Diagnosis [...] documented as of this encounter Care Teams Parts Counterman Relationship Specialty Start Date End Date Jigar Patel PA [address] [place] [address] PCP - General 02/26/23 documented as of this encounter
--- OUTSIDE RECORDS SUMMARY | 2024-11-26 11:57 | XMS_ITS | Clinical Summary ---
Author Organization [facility] 299 [facility] Address [address] [place] [address] Phone Care Team Providers Care Head Correction Officer Name Role Phone Jigar Patel Primary Care Provider [phone] Allergies Active Allergy Reactions Criticality Noted Date [...] (PROTONIX) 40 mg EC tablet 4 Active jsgdeb-vghugekc-vhier se (Creon) 36,000-114,000- 180,000 unit capsule,delayed release(DR/EC)Indicat [...] KALE (obstructive sleep apnea) 01/11/2019 Overview (08/31/2024): [facility] Home Polysomnogram: Date 02/04/2019; Wt 235#; VICKY [...] Description 11/08/2024 8:39 AM EST Anesthesia Event [facility] Endoscopy [address] [place] [phone] Monica Hernandez MD 11/08/2024 7:28 AM EST - 11/08/2024 11:59 PM EST Hospital Encounter [facility] Endoscopy [address] [place] [phone] Garrett Shabazz MD Freeman, Katharine O, MD Abrokwah, Foster Myles G, CRNA History of colon polyps Discharge Disposition: Home or Self Care 10/26/2024 2:30 PM EST Office Visit Gastroenterology - [address] [phone] Garrett Shabazz MD Functional diarrhea (Primary Dx); Incisional hernia, without obstruction or gangrene 10/26/2024 Telephone Gastroenterology - [address] [place] [address] Deny Hauser [place] 10/22/2024 Telephone Gastroenterology - [address] [place] [address] [phone] Garrett Shabazz MD 10/21/2024 6:34 PM EST - 10/22/2024 4:43 PM EST Hospital Encounter [facility] Surgical Unit [address] [place] [address] Kiran Collins MD Cheng, Ting Ho Danny, DO Fiallo, Viriato M, MD Generalized abdominal pain (Primary Dx) Discharge Disposition: Home or Self Care 10/21/2024 Telephone Gastroenterology - [address] [phone] Garrett Shabazz MD 10/15/2024 Telephone Gastroenterology - [address] [address] [phone] Garrett Shabazz MD 10/14/2024 Telephone Gastroenterology - [address] [address] [phone] Garrett Shabazz MD 10/11/2024 Telephone Gastroenterology - [address] [place] [phone] Jerri Marsh [place] 10/11/2024 Telephone Gastroenterology - [address] [place] [address] [phone] Garrett Shabazz MD 10/05/2024 11:15 AM EST Office Visit Gastroenterology - [address] [address] [phone] Garrett Shabazz MD Diarrhea, unspecified type (Primary Dx); Incisional hernia, without obstruction or gangrene; Diarrhea following gastrointestinal surgery from Last 3 Months Surgical History Surgery Date Site/Laterality Comments HERNIA REPAIR PROCEDURE: [place] REPAIR FIRST ABDOMINAL WALL HERNIA OTHER SURGICAL [...] Office Visit Gastroenterology - 299 [place] [address] [facility] [address] [place] [phone] Garrett Shabazz MD [address] [facility] [address] [place] [address] Health Maintenance Due Date Last Done Comments [...] Maintenance Results * COLONOSCOPY Anesthesia - MAC; [facility] ENDOSCOPY (11/08/2024 8:55 AM EST) [...] pathology results. Narrative 11/08/2024 8:59 AM EST [facility] GI Patient Name: Yu Morgan Procedure [...] Procedure Code(s): ? --- Professional --- ? 63194, Colonoscopy, flexible; with biopsy, single or ? multiple CPT copyright 2020 [employer]. All rights reserved. The codes documented in this report are preliminary and upon assessment rn review may be revised to meet current compliance requirements. MD Garrett Do MD 11/08/2024 8:59:29 AM This report has been signed electronically.Garrett Shabazz MD Number of Addenda: 0 Note Initiated On: 11/08/2024 8:40 AM Scope In: Scope Out: ? Endoscopy Department at [facility] - [address] [place] [address], ? [place] [address] Procedure Note Garrett Shabazz MD - 11/08/2024 [facility] GI Patient Name: Yu Morgan Procedure [...] Findings: There was evidence of a prior sco-ox-ktgguwb-colonic anastomosis in the sigmoid colon. This was patentand was characterized by healthy appearing mucosa. The anastomosis was traversed. The exam was otherwise without abnormality ondirect and retroflexion views. Clara-anal excoriationsnoted. Biopsies were taken with a cold forceps in therectum, in the sigmoid colon and in the distal ileum for histology. Procedure Code(s): --- Professional --- 95128, Colonoscopy, flexible; with biopsy, singleor multiple CPT copyright 2020 [employer]. All rights reserved. The codes documented in this report are preliminary and upon assessment rn reviewmay be revised to meet current compliance requirements. MD Garrett Do MD 11/08/2024 8:59:29 AM This report has been signed electronically.Garrett Shabazz MD Number of Addenda: 0 Note Initiated On: 11/08/2024 8:40 AM Scope In: Scope Out: Endoscopy Department at [facility] - [address] [place] [phone] IMPRESSION: - Patent end-to-end ileo-colonic anastomosis, characterized [...] survive processing. dvb/DG 11/09/2024 8:26 AM EST [facility] Disclaimer Unless otherwise specified, all tissue is 10% NB formalin fixed and paraffin embedded. 11/09/2024 8:26 AM [facility] Tissue (Colon) 11/08/2024 8: 48 AM EST 11/08/2024 11:13 AM EST Tissue specimen (specimen) (Colon) 11/08/2024 8:49 AM EST 11/08/2024 11:13 AM EST Garrett Shabazz MD LAB PATHOLOGY ORDERA BLES [facility] Organization Address City/State/ZIP Co de Phone Number [facility] [address] [place] [address], * Lactate (10/22/2024 1:10 AM EST) Lactate 1.8 0.4 - 2.0 mmol/L LAB CHEMISTRY METHOD 10/22/2024 1:38 AM EST [facility] Blood Venous blood specimen / Unknown Venipuncture / Unknown 10/22/2024 1:10 AM EST 10/22/2024 1:15 AM EST Lobito Mukesh Nallely PA LAB BLOOD ORDERAB LES [facility] [address] [place] [address], * ECG-Outside (10/22/2024) Provider Onbase MD ECG [...] Hysterectomy. No adnexal abnormality. Procedure Note Alfredito Parikh MD - 10/21/2024 CT abdomen and pelvis [...] K/mcL LAB HEMETOLOGY METHOD 10/21/2024 7:54 PM [facility] RBC 4.10 3.80 - 4.80 M/mcL LAB HEMETOLOGY METHOD 10/21/2024 7:54 PM [facility] Hemoglobin 12.2 11.5 - 16.0 g/dL LAB HEMETOLOGY METHOD 10/21/2024 7:54 PM [facility] Hematocrit 36.8 35.0 - 47.0 % LAB HEMETOLOGY METHOD 10/21/2024 7:54 PM [facility] MCV 90.4 79.0 - 98.0 FL LAB HEMETOLOGY METHOD 10/21/2024 7:54 PM [facility] MCH 30.0 27.0 - 32.0 pcg LAB HEMETOLOGY METHOD 10/21/2024 7:54 PM [facility] MCHC 33.2 32.0 - 37.0 g/dL LAB HEMETOLOGY METHOD 10/21/2024 7:54 PM [facility] RDW 13.4 11.0 - 15.0 % LAB HEMETOLOGY METHOD 10/21/2024 7:54 PM [facility] Platelets 274 130 - 400 K/mcL LAB HEMETOLOGY METHOD 10/21/2024 7:54 PM [facility] MPV 9.9 7.0 - 11.0 FL LAB HEMETOLOGY METHOD 10/21/2024 7:54 PM [facility] NRBC 0.0 <1.0 % LAB HEMETOLOGY METHOD 10/21/2024 7:54 PM [facility] NRBC Absolute 0.00 <0.10 K/mcL LAB HEMETOLOGY METHOD 10/21/2024 7:54 PM [facility] Neutrophils Relative 48.0 % LAB HEMETOLOGY METHOD 10/21/2024 7:54 PM [facility] Lymphocytes Relative 37.3 % LAB HEMETOLOGY METHOD 10/21/2024 7:54 PM [facility] Monocytes Relative 10.8 % LAB HEMETOLOGY METHOD 10/21/2024 7:54 PM [facility] Eosinophils Relative 2.8 % LAB HEMETOLOGY METHOD 10/21/2024 7:54 PM [facility] Basophils Relative 0.8 % LAB HEMETOLOGY METHOD 10/21/2024 7:54 PM [facility] Immature Granulocytes Relative 0.3 % LAB HEMETOLOGY METHOD 10/21/2024 7:54 PM [facility] Neutrophils Absolute 3.67 1.50 - 7.00 K/mcL LAB HEMETOLOGY METHOD 10/21/2024 7:54 PM [facility] Lymphocytes Absolute 2.84 1.00 - 5.00 K/mcL LAB HEMETOLOGY METHOD 10/21/2024 7:54 PM EST [facility] Monocytes Absolute 0.82 0.20 - 1.00 K/mcL LAB HEMETOLOGY METHOD 10/21/2024 7:54 PM EST [facility] Eosinophils Absolute 0.21 0.00 - 0.50 K/mcL LAB HEMETOLOGY METHOD 10/21/2024 7:54 PM EST [facility] Basophils Absolute 0.06 0.00 - 0.20 K/mcL LAB HEMETOLOGY METHOD 10/21/2024 7:54 PM [facility] Immature Granulocytes Absolute 0.02 0.00 - 0.03 K/mcL LAB HEMETOLOGY METHOD 10/21/2024 7:54 PM [facility] Blood Venous blood specimen / Unknown Venipuncture / Unknown 10/21/2024 6:54 PM EST 10/21/2024 7:49 PM EST Kiran Collins MD LAB BLOOD ORDERABLES [facility] [address] [place] [address], * (ABNORMAL) Comprehensive metabolic panel (10/21/2024 6:54 PM EST) Sodium 135 133 - 145 mmol/L LAB CHEMISTRY METHOD 10/21/2024 8:27 PM [facility] Potassium 3.6 3.5 - 5.5 mmol/L LAB CHEMISTRY METHOD 10/21/2024 8:27 PM [facility] Comment:Hemolysis present Chloride 101 96 - 110 mmol/L LAB CHEMISTRY METHOD 10/21/2024 8:27 PM [facility] CO2 25 21 - 32 mmol/L LAB CHEMISTRY METHOD 10/21/2024 8:27 PM [facility] Anion Gap 9 3 - 11 LAB CHEMISTRY METHOD 10/21/2024 8:27 PM [facility] Glucose 129(H) 70 - 100 mg/dL LAB CHEMISTRY METHOD 10/21/2024 8:27 PM [facility] BUN 6 5 - 25 mg/dL LAB CHEMISTRY METHOD 10/21/2024 8:27 PM [facility] Creatinine 0.85 0.50 - 1.10 mg/dL LAB CHEMISTRY METHOD 10/21/2024 8:27 PM [facility] eGFR 78 >=60 mL/min/1. 73m2 LAB CHEMISTRY METHOD 10/21/2024 8:27 PM [facility] Comment:Calculation based on the??Chronic Kidney Disease Epidemiology Collaboration (CKD-EPI) equation refit??without adjustment for race. BUN/Creatinine Ratio 7.1 LAB CHEMISTRY METHOD 10/21/2024 8:27 PM [facility] Calcium 8.6 8.5 - 10.5 mg/dL LAB CHEMISTRY METHOD 10/21/2024 8:27 PM [facility] AST (SGOT) 20 10 - 42 unit/L LAB CHEMISTRY METHOD 10/21/2024 8:27 PM [facility] Comment:Hemolysis present ALT (SGPT) 26 10 - 60 unit/L LAB CHEMISTRY METHOD 10/21/2024 8:27 PM [facility] Alkaline Phosphatase 122(H) 42 - 121 unit/L LAB CHEMISTRY METHOD 10/21/2024 8:27 PM [facility] Total Protein 6.3 6.0 - 8.0 g/dL LAB CHEMISTRY METHOD 10/21/2024 8:27 PM [facility] Albumin 3.6 3.2 - 5.0 g/dL LAB CHEMISTRY METHOD 10/21/2024 8:27 PM [facility] Total Bilirubin 0.2 0.0 - 1.4 mg/dL LAB CHEMISTRY METHOD 10/21/2024 8:27 PM [facility] Blood Venous blood specimen / Unknown Venipuncture / Unknown 10/21/2024 6:54 PM EST 10/21/2024 7:49 PM EST Kiran Collins MD LAB BLOOD ORDERABLES [facility] [address] [place] [address], * (ABNORMAL) Pancreatic elastase 1 (10/07/2024 9:54 AM EST) Pancreatic Elastase 1 35.2(L) >200 mcg/g 10/11/2024 1:23 PM EST [facility] Comment: Adult and Pediatric Referance Ranges for Pancreatic Elastase-1: Normal: ? >200 mcg/g Moderate Pancreatic Insufficiency: ?100-200 mcg/g Severe Pancreatic Insufficiency: ?<100 mcg/g Test performed at [facility], [address] [place], [place] ??[address] ? [phone] Lacey Cabrera MD, PhD - Prop Worker Stool Rectum structure / Unknown Non-blood Collection / Unknown 10/07/2024 9:54 AM EST 10/07/2024 11:36 AM EST Garrett Shabazz MD LAB BODY FLUIDS AND STOOLS ORDERABLES [facility] [address] [place] [address] * Tissue transglutaminase, IgA (10/05/2024 11:18 AM EST) Tissue Transglutaminase Ab, IgA Quant 1 <4 unit/mL LAB CHEMISTRY METHOD 10/06/2024 1:33 PM EST [facility] Tissue Transglutaminase Ab, IgA Negative Negative LAB CHEMISTRY METHOD 10/06/2024 1:33 PM EST [facility] Blood Venous blood specimen / Unknown Venipuncture / Unknown 10/05/2024 11:18 AM EST 10/05/2024 12:02 PM EST Garrett Shabazz MD LAB BLOOD ORDERABLES Performing Organization Address [facility]/ZIP Co de Phone Number [facility] [address] [place] [address], * Immunoglobulin IgA (10/05/2024 11:18 AM EST) [facility] IgA 165 61 - 348 mg/dL LAB CHEMISTRY METHOD 10/05/2024 12:54 PM EST [facility] Blood Venous blood specimen / Unknown Venipuncture / Unknown 10/05/2024 11:18 AM EST 10/05/2024 12:03 PM EST Garrett Shabazz MD LAB BLOOD ORDERABLES Performing Organization Address [facility] de Phone Number [facility] [address] [place] [address], [place] [phone] * Lipid panel (10/01/2023) [facility] LDL/HDL Ratio 0 Comment:No Interpretation, A bstracted [...] Documents on File Type Date Recorded Patient Transmitter Chief Expl anation Health Care Decision (hx) 11/03/2022 [...] currently active code status orders. Care Teams Head Correction Officer Relationship Specialty Start Date End Date Jigar Patel PA [address] [place], [place] [phone] PCP - General 02/26/23
--- OUTSIDE RECORDS SUMMARY | 2024-11-26 11:57 | XMS_ITS | Encounter Summary ---
Author Organization [facility] Address [address] [place] [address] Care Team Providers Care Plumbing Manager Name Role Phone Jigar Patel Primary Care Provider Encounter Details Date Type Department Care Team (Late st Contact Info) Description 11/08/2024 8:39 AM EST Anesthesia Event [facility] [address] [place] [address] Monica Hernandez MD [address] [place] [address] Anesthesia Record Procedure Summary Procedure Name Responsible [...] Procedure Summary Date: 11/08/24 Room / Location: [facility] Anesthesia Start: 838 Anesthesia Stop: 857 [...] CHOLECYSTECTOMY COLON SURGERY COLONOSCOPY HERNIA REPAIR PROCEDURE: [place] REPAIR FIRST ABDOMINAL WALL HERNIA OTHER SURGICAL [...] 3 TIMES DAILY ASNEEDED 49.222 g 2 rlhqec-wnbpmnxd-jwkngyh (Creon) 36,000-114,000- 180,000 unit capsule,delayed release(DR/EC) Take [...] H/O blot clot HTN- denies chest pain. ND Hypothyroid on replacement Denies cardiac, pulm, neuro, [...] Office Visit Gastroenterology - 299 [place] [address] [facility] [address] [place] [phone] Garrett Shabazz MD [address] [place] [address] documented as of this encounter Visit Diagnoses [...] mg documented in this encounter Care Teams Plumbing Manager Relationship Specialty Start Date End Date Jigar Patel PA [address] [place] [address] PCP - General 02/26/23 documented as of this encounter
--- OUTSIDE RECORDS SUMMARY | 2024-11-26 11:57 | XMS_ITS | Encounter Summary ---
Author Organization [facility] Address [address] [place] [address] Care Team Providers Care Slat Twister Name Role Phone Jigar Patel Primary Care Provider Encounter Details Date Type Department Care Team (Late st Contact Info) Description 10/22/2024 Telephone Gastroenterology - [address] [place] [phone] Garrett Shabazz MD [address] [place] [address] Social History Tobacco Use Types Packs/Day Years [...] [address] [facility] [address] [place] [phone] Garrett Shabazz MD [address] [facility] [address] [place] [phone] documented as of this encounter Visit Diagnoses Not on filedocumented in this encounter Additional Health Concerns Infection Onset Date Last Indicated Resolved Time Gastrointestinal Rule-Out Comment:No testing required per PA 10/22/2024 10/22/202410/22 12:30 PM EST documented as of this encounter Care Teams Slat Twister Relationship Specialty Start Date End Date Jigar Patel PA [address] [place] [address] PCP - General 02/26/23 documented as of this encounter
== END 2024-11-26 11:04 | disposition home or self-care (01) ==
LOC: HO.CT 11:03
PROVIDERS: PCP Internal Medicine; Visit Provider Physician Assistant Medical
DX: Z12.2 Encounter for screening for malignant neoplasm of respiratory organs (principal); F17.210 Nicotine dependence, cigarettes, uncomplicated
CPT/HCPCS: 71271; G0296

== ENCOUNTER → 2024-11-26 11:05 | Outpatient (BNV) | payer OTHER, SELFPAY | PROVIDERS: PCP Internal Medicine; Visit Provider Radiology Diagnostic Radiology | DX: F17.210 Nicotine dependence, cigarettes, uncomplicated (principal) | CPT/HCPCS: 71271 ==

== ENCOUNTER 2024-11-29 14:25 | Outpatient (AMB) | payer OTHER, SELFPAY ==
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
--- OUTSIDE RECORDS SUMMARY | 2024-11-29 16:04 | XMS_ITS | Clinical Summary ---
Author Organization [facility] [address] [facility] Address [address] [place] [address] Phone Care Team Providers Care Lozenge Maker Name Role Phone Jigar Patel Primary Care [...] (PROTONIX) 40 mg EC tablet 4 Active mdcipi-ybwqtdxf-ijaka se (Creon) 36,000-114,000- 180,000 unit capsule,delayed release(DR/EC)Indicat [...] KALE (obstructive sleep apnea) 01/11/2019 Overview (08/31/2024): [facility] Home Polysomnogram: Date 02/04/2019; Wt 235#; [...] Description 11/08/2024 8:39 AM EST Anesthesia Event [facility] Endoscopy [address] [place] [phone] Monica Hernandez MD 11/08/2024 7:28 AM EST - 11/08/2024 11:59 PM EST Hospital Encounter [facility] Endoscopy [address] [place] [phone] Garrett Shabazz MD Freeman, Katharine O, MD Abrokwah, Foster Myles G, CRNA History of colon polyps Discharge Disposition: Home or Self Care 10/26/2024 2:30 PM EST Office Visit Gastroenterology - [address] [phone] Garrett Shabazz MD Functional diarrhea (Primary Dx); Incisional hernia, without obstruction or gangrene 10/26/2024 Telephone Gastroenterology - [address] [place] [phone] Deny Hauser [place] 10/22/2024 Telephone Gastroenterology - [address] [phone] Garrett Shabazz MD 10/21/2024 6:34 PM EST - 10/22/2024 4:43 PM EST Hospital Encounter [facility] Surgical Unit [address] [place] [address] Kiran Collins MD Cheng, Ting Ho Danny, DO Fiallo, Viriato M, MD Generalized abdominal pain (Primary Dx) Discharge Disposition: Home or Self Care 10/21/2024 Telephone Gastroenterology - [address] [phone] Garrett Shabazz MD 10/15/2024 Telephone Gastroenterology - [address] [phone] Garrett Shabazz MD 10/14/2024 Telephone Gastroenterology - [address] [phone] Garrett Shabazz MD 10/11/2024 Telephone Gastroenterology - [address] [place] [phone] Jerri Marsh [place] 10/11/2024 Telephone Gastroenterology - [address] [phone] Garrett Shabazz MD 10/05/2024 11:15 AM EST Office Visit Gastroenterology - [address] [phone] Garrett Shabazz MD Diarrhea, unspecified type (Primary Dx); Incisional hernia, without obstruction or gangrene; Diarrhea following gastrointestinal surgery from Last 3 Months Surgical History Surgery Date Site/Laterality Comments HERNIA REPAIR PROCEDURE: [place] REPAIR FIRST ABDOMINAL WALL HERNIA OTHER SURGICAL [...] Team (Late st Contact Info) Description 01/07/2025 10:10 AM EDT Office Visit Gastroenterology - [address] [place] [phone] Garrett Shabazz MD [address] [place] [address] Health Maintenance Due Date Last Done Comments [...] Maintenance Results * COLONOSCOPY Anesthesia - MAC; [facility] ENDOSCOPY (11/08/2024 8:55 AM EST) [...] pathology results. Narrative 11/08/2024 8:59 AM EST [facility] GI Patient Name: Yu Morgan Procedure [...] Procedure Code(s): ? --- Professional --- ? 71107, Colonoscopy, flexible; with biopsy, single or ? multiple CPT copyright 2020 [employer]. All rights reserved. The codes documented in this report are preliminary and upon fly setter review may be revised to meet current compliance requirements. MD Garrett Do MD 11/08/2024 8:59:29 AM This report has been signed electronically.Garrett Shabazz MD Number of Addenda: 0 Note Initiated On: 11/08/2024 8:40 AM Scope In: Scope Out: ? Endoscopy Department at [facility] - [address] [place] [address], ? [place] [address] Procedure Note Garrett Shabazz MD - 11/08/2024 [facility] GI Patient Name: Yu Morgan Procedure [...] Findings: There was evidence of a prior zwm-ux-qawadlu-colonic anastomosis in the sigmoid colon. This was patentand was characterized by healthy appearing mucosa. The anastomosis was traversed. The exam was otherwise without abnormality ondirect and retroflexion views. Clara-anal excoriationsnoted. Biopsies were taken with a cold forceps in therectum, in the sigmoid colon and in the distal ileum for histology. Procedure Code(s): --- Professional --- 96973, Colonoscopy, flexible; with biopsy, singleor multiple CPT copyright 2020 [employer]. All rights reserved. The codes documented in this report are preliminary and upon fly setter reviewmay be revised to meet current compliance requirements. MD Garrett Do MD 11/08/2024 8:59:29 AM This report has been signed electronically.Garrett Shabazz MD Number of Addenda: 0 Note Initiated On: 11/08/2024 8:40 AM Scope In: Scope Out: Endoscopy Department at [facility] - [address] [place] [phone] IMPRESSION: - Patent end-to-end ileo-colonic anastomosis, characterized [...] survive processing. dvb/DG 11/09/2024 8:26 AM EST [facility] Disclaimer Unless otherwise specified, all tissue is 10% NB formalin fixed and paraffin embedded. 11/09/2024 8:26 AM [facility] Tissue (Colon) 11/08/2024 8: 48 AM EST 11/08/2024 11:13 AM EST Tissue specimen (specimen) (Colon) 11/08/2024 8:49 AM EST 11/08/2024 11:13 AM EST Garrett Shabazz MD LAB PATHOLOGY ORDERA BLES [facility] Organization Address City/State/ZIP Co de Phone Number [facility] [address] [place] [address], * Lactate (10/22/2024 1:10 AM EST) Lactate 1.8 0.4 - 2.0 mmol/L LAB CHEMISTRY METHOD 10/22/2024 1:38 AM EST [facility] Blood Venous blood specimen / Unknown Venipuncture / Unknown 10/22/2024 1:10 AM EST 10/22/2024 1:15 AM EST Lobito Mukesh Nallely PA LAB BLOOD ORDERAB LES [facility] [address] [place] [address], * ECG-Outside (10/22/2024) Provider Onbase MD ECG [...] LAB HEMETOLOGY METHOD 10/21/2024 7:54 PM [facility] RBC 4.10 3.80 - 4.80 M/mcL LAB HEMETOLOGY METHOD 10/21/2024 7:54 PM [facility] Hemoglobin 12.2 11.5 - 16.0 g/dL LAB HEMETOLOGY METHOD 10/21/2024 7:54 PM [facility] Hematocrit 36.8 35.0 - 47.0 % LAB HEMETOLOGY METHOD 10/21/2024 7:54 PM [facility] MCV 90.4 79.0 - 98.0 FL LAB HEMETOLOGY METHOD 10/21/2024 7:54 PM [facility] MCH 30.0 27.0 - 32.0 pcg LAB HEMETOLOGY METHOD 10/21/2024 7:54 PM [facility] MCHC 33.2 32.0 - 37.0 g/dL LAB HEMETOLOGY METHOD 10/21/2024 7:54 PM [facility] RDW 13.4 11.0 - 15.0 % LAB HEMETOLOGY METHOD 10/21/2024 7:54 PM [facility] Platelets 274 130 - 400 K/mcL LAB HEMETOLOGY METHOD 10/21/2024 7:54 PM [facility] MPV 9.9 7.0 - 11.0 FL LAB HEMETOLOGY METHOD 10/21/2024 7:54 PM [facility] NRBC 0.0 <1.0 % LAB HEMETOLOGY METHOD 10/21/2024 7:54 PM [facility] NRBC Absolute 0.00 <0.10 K/mcL LAB HEMETOLOGY METHOD 10/21/2024 7:54 PM [facility] Neutrophils Relative 48.0 % LAB HEMETOLOGY METHOD 10/21/2024 7:54 PM [facility] Lymphocytes Relative 37.3 % LAB HEMETOLOGY METHOD 10/21/2024 7:54 PM [facility] Monocytes Relative 10.8 % LAB HEMETOLOGY METHOD 10/21/2024 7:54 PM [facility] Eosinophils Relative 2.8 % LAB HEMETOLOGY METHOD 10/21/2024 7:54 PM [facility] Basophils Relative 0.8 % LAB HEMETOLOGY METHOD 10/21/2024 7:54 PM [facility] Immature Granulocytes Relative 0.3 % LAB HEMETOLOGY METHOD 10/21/2024 7:54 PM [facility] Neutrophils Absolute 3.67 1.50 - 7.00 K/mcL LAB HEMETOLOGY METHOD 10/21/2024 7:54 PM [facility] Lymphocytes Absolute 2.84 1.00 - 5.00 K/mcL LAB HEMETOLOGY METHOD 10/21/2024 7:54 PM EST [facility] Monocytes Absolute 0.82 0.20 - 1.00 K/mcL LAB HEMETOLOGY METHOD 10/21/2024 7:54 PM EST [facility] Eosinophils Absolute 0.21 0.00 - 0.50 K/mcL LAB HEMETOLOGY METHOD 10/21/2024 7:54 PM EST [facility] Basophils Absolute 0.06 0.00 - 0.20 K/mcL LAB HEMETOLOGY METHOD 10/21/2024 7:54 PM [facility] Immature Granulocytes Absolute 0.02 0.00 - 0.03 K/mcL LAB HEMETOLOGY METHOD 10/21/2024 7:54 PM [facility] Blood Venous blood specimen / Unknown Venipuncture / Unknown 10/21/2024 6:54 PM EST 10/21/2024 7:49 PM EST Kiran Collins MD LAB BLOOD ORDERABLES [facility] [address] [place] [address], * (ABNORMAL) Comprehensive metabolic panel (10/21/2024 6:54 PM EST) Sodium 135 133 - 145 mmol/L LAB CHEMISTRY METHOD 10/21/2024 8:27 PM [facility] Potassium 3.6 3.5 - 5.5 mmol/L LAB CHEMISTRY METHOD 10/21/2024 8:27 PM [facility] Comment:Hemolysis present Chloride 101 96 - 110 mmol/L LAB CHEMISTRY METHOD 10/21/2024 8:27 PM [facility] CO2 25 21 - 32 mmol/L LAB CHEMISTRY METHOD 10/21/2024 8:27 PM [facility] Anion Gap 9 3 - 11 LAB CHEMISTRY METHOD 10/21/2024 8:27 PM [facility] Glucose 129(H) 70 - 100 mg/dL LAB CHEMISTRY METHOD 10/21/2024 8:27 PM [facility] BUN 6 5 - 25 mg/dL LAB CHEMISTRY METHOD 10/21/2024 8:27 PM [facility] Creatinine 0.85 0.50 - 1.10 mg/dL LAB CHEMISTRY METHOD 10/21/2024 8:27 PM [facility] eGFR 78 >=60 mL/min/1. 73m2 LAB CHEMISTRY METHOD 10/21/2024 8:27 PM [facility] Comment:Calculation based on the??Chronic Kidney Disease Epidemiology Collaboration (CKD-EPI) equation refit??without adjustment for race. BUN/Creatinine Ratio 7.1 LAB CHEMISTRY METHOD 10/21/2024 8:27 PM [facility] Calcium 8.6 8.5 - 10.5 mg/dL LAB CHEMISTRY METHOD 10/21/2024 8:27 PM [facility] AST (SGOT) 20 10 - 42 unit/L LAB CHEMISTRY METHOD 10/21/2024 8:27 PM [facility] Comment:Hemolysis present ALT (SGPT) 26 10 - 60 unit/L LAB CHEMISTRY METHOD 10/21/2024 8:27 PM [facility] Alkaline Phosphatase 122(H) 42 - 121 unit/L LAB CHEMISTRY METHOD 10/21/2024 8:27 PM [facility] Total Protein 6.3 6.0 - 8.0 g/dL LAB CHEMISTRY METHOD 10/21/2024 8:27 PM [facility] Albumin 3.6 3.2 - 5.0 g/dL LAB CHEMISTRY METHOD 10/21/2024 8:27 PM [facility] Total Bilirubin 0.2 0.0 - 1.4 mg/dL LAB CHEMISTRY METHOD 10/21/2024 8:27 PM [facility] Blood Venous blood specimen / Unknown Venipuncture / Unknown 10/21/2024 6:54 PM EST 10/21/2024 7:49 PM EST Kiran Collins MD LAB BLOOD ORDERABLES [facility]) [facility] [address] [place] [address], * (ABNORMAL) Pancreatic elastase 1 (10/07/2024 9:54 AM EST) Pancreatic Elastase 1 35.2(L) >200 mcg/g 10/11/2024 1:[address] [facility] Comment: Adult and Pediatric Referance Ranges for Pancreatic Elastase-1: Normal: ? >200 mcg/g Moderate Pancreatic Insufficiency: ?100-200 mcg/g Severe Pancreatic Insufficiency: ?<100 mcg/g Test performed at [facility], [address] [place], [place] ??[address] ? [phone] Lacey Cabrera MD, PhD - Continuous Mining Machine Lode Miner Stool Rectum structure / Unknown Non-blood Collection / Unknown 10/07/2024 9:54 AM EST 10/07/2024 11:36 AM EST Garrett Shabazz MD LAB BODY FLUIDS AND STOOLS ORDERABLES [facility] [address] [place] [address] * Tissue transglutaminase, IgA (10/05/2024 11:18 AM EST) Tissue Transglutaminase Ab, IgA Quant 1 <4 unit/mL LAB CHEMISTRY METHOD 10/06/2024 1:33 PM EST [facility] Tissue Transglutaminase Ab, IgA Negative Negative LAB CHEMISTRY METHOD 10/06/2024 1:33 PM EST [facility] Blood Venous blood specimen / Unknown Venipuncture / Unknown 10/05/2024 11:18 AM EST 10/05/2024 12:02 PM EST Garrett Shabazz MD LAB BLOOD ORDERABLES Performing Organization Address [facility]/ZIP Co de Phone Number [facility] [address] [place] [address], * Immunoglobulin IgA (10/05/2024 11:18 AM EST) [facility] IgA 165 61 - 348 mg/dL LAB CHEMISTRY METHOD 10/05/2024 12:54 PM EST [facility] Blood Venous blood specimen / Unknown Venipuncture / Unknown 10/05/2024 11:18 AM EST 10/05/2024 12:03 PM EST Garrett Shabazz MD LAB BLOOD ORDERABLES Performing Organization Address [facility] de Phone Number [facility] [address] [place] [address], [place] [phone] * Lipid panel (10/01/2023) [facility] LDL/HDL Ratio 0 Comment:No Interpretation, A bstracted [...] Documents on File Type Date Recorded 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 Care Teams Lozenge Maker Relationship Specialty Start Date End Date Jigar Patel PA [address] [place], [place] [phone] PCP - General 02/26/23
--- OUTSIDE RECORDS SUMMARY | 2024-11-29 16:04 | XMS_ITS | Encounter Summary ---
Author Organization [facility] Address [address] [place] [address] Care Team Providers Care Control Panel Assembler Name Role Phone Jigar Patel Primary Care Provider Encounter Details Date Type Department Care Team (Late st Contact Info) Description 11/08/2024 8:39 AM EST Anesthesia Event [facility]oscopy [address] [place] [address] Monica Hernandez MD [address] [place] [address] Anesthesia Record Procedure Summary Procedure Name Responsible [...] Procedure Summary Date: 11/08/24 Room / Location: [facility]oscopy Anesthesia Start: 838 Anesthesia Stop: 857 [...] CHOLECYSTECTOMY COLON SURGERY COLONOSCOPY HERNIA REPAIR PROCEDURE: [place] REPAIR FIRST ABDOMINAL WALL HERNIA OTHER SURGICAL [...] 3 TIMES DAILY ASNEEDED 49.222 g 2 hoqjht-mrkzojlm-zawgnju (Creon) 36,000-114,000- 180,000 unit capsule,delayed release(DR/EC) Take [...] H/O blot clot HTN- denies chest pain. [place] Hypothyroid on replacement Denies cardiac, pulm, neuro, [...] Office Visit Gastroenterology - [address] [place] [phone] Garrett Shabazz MD [address] [place] [address] documented as of this encounter Visit Diagnoses [...] mg documented in this encounter Care Teams Control Panel Assembler Relationship Specialty Start Date End Date Jigar Patel PA [address] [place] [address] PCP - General 02/26/23 documented as of this encounter
--- OUTSIDE RECORDS SUMMARY | 2024-11-29 16:04 | XMS_ITS | Encounter Summary ---
Author Organization [facility] Address [address] [place] [address] Care Team Providers Care Agent Telegrapher Name Role Phone Jigar Patel Primary Care Provider Reason for Referral * Hospital - Outpatient (Routine) - Closed Specialty Diagnoses / Procedures Referred By Mray ball Referred To Contact Gastroenterology Diagnoses History of colon polyps Procedures COLONOSCOPY Anesthesia - MAC; [facility] ENDOSCOPY Garrett Shabazz MD [address] [address] [facility] Endoscopy [address] [place] [phone] Referral ID Status Reason Start Date Expiration Date Visits Re quested Visits Authorized [id number] Closed 10/26/2024 10/26/2025 1 1 Reason for Visit * Hospital - Outpatient (Routine) - Closed Specialty Diagnoses / Procedures Referred By Mary ball Referred To Contact Gastroenterology Diagnoses History of colon polyps Procedures COLONOSCOPY Anesthesia - MAC; [facility] ENDOSCOPY Garrett Shabazz MD [address] [address] [facility] Endoscopy [address] [place] [phone] Referral ID Status Reason Start Date Expiration Date Visits Re quested Visits Authorized [id number] Closed 10/26/2024 10/26/2025 1 1 Encounter Details Date Type Department Care Team (Late st Contact Info) Description 11/08/2024 7:28 AM EST - 11/08/2024 11:59 PM EST Hospital Encounter [facility] Endoscopy [address] [place] [address] Garrett Shabazz MD [address] [address] Monica Hernandez MD [address] [place] [address] Aiden Wang CRNA [address] [place] [address] History of colon polyps Discharge [...] sent through Care Everywhere. * Colonoscopy: Post-op (Upper Sor[place]) documented in this encounter Medications at Time [...] TIMES DAILY NEEDED 49.222 g 2 09/16/2024 rgxupg-brpxusnu-jeniyuq (Creon) 36,000-114,000- 180,000 unit capsule,delayed release(DR/EC)Indications :Pancreatic [...] Office Visit Gastroenterology - [address] [facility] [address] [place] [phone] Garrett Shabazz MD [address] [place] [address] documented as of this encounter Procedures Procedure Name Priority Date/Time Associated Diagnosis Comments COLONOSCOPY Routine 11/08/2024 8:55 AM EST History of colon polyps TISSUE EXAM Routine 11/08/2024 8:48 AM EST History of colon polyps documented in this encounter Results * COLONOSCOPY Anesthesia - MAC; [facility] ENDOSCOPY (11/08/2024 8:55 AM EST) Anatomical Region [...] pathology results. Narrative 11/08/2024 8:59 AM EST [facility] GI Patient Name: Yu Morgan [...] Procedure Code(s): ? --- Professional --- ? 92387, Colonoscopy, flexible; with biopsy, single or ? multiple CPT copyright 2021 [employer]. All rights reserved. The codes documented in this report are preliminary and upon certified procedural coder review may be revised to meet current compliance requirements. MD Garrett Do MD 11/08/2024 8:59:29 AM This report has been signed electronically.Garrett Shabazz MD Number of Addenda: 0 Note Initiated On: 11/08/2024 8:40 AM Scope In: Scope Out: ? Endoscopy Department at [facility] - [address] [place] [address], ? [place] [address] Procedure Note Garrett Shabazz MD - 11/08/2024 [facility] GI Patient Name: Yu Morgan [...] Findings: There was evidence of a prior dvx-nj-kxrrxym-colonic anastomosis in the sigmoid colon. This was patentand was characterized by healthy appearing mucosa. The anastomosis was traversed. The exam was otherwise without abnormality ondirect and retroflexion views. Clara-anal excoriationsnoted. Biopsies were taken with a cold forceps in therectum, in the sigmoid colon and in the distal ileum for histology. Procedure Code(s): --- Professional --- 29289, Colonoscopy, flexible; with biopsy, singleor multiple CPT copyright 2020 [employer]. All rights reserved. The codes documented in this report are preliminary and upon certified procedural coder reviewmay be revised to meet current compliance requirements. MD Garrett Do MD 11/08/2024 8:59:29 AM This report has been signed electronically.Garrett Shabazz MD Number of Addenda: 0 Note Initiated On: 11/08/2024 8:40 AM Scope In: Scope Out: Endoscopy Department at [facility] - [address] [place] [phone] IMPRESSION: - Patent end-to-end ileo-colonic anastomosis, characterized [...] diagnostic histopathologic change. 11/09/2024 8:26 AM EST [facility] Gross Description A. Colon, biopsies [...] survive processing. dvb/DG 11/09/2024 8:26 AM EST [facility] Disclaimer Unless otherwise specified, all tissue is 10% NB formalin fixed and paraffin embedded. 11/09/2024 8:26 AM EST [facility] Tissue (Colon) 11/08/2024 8: 48 AM EST 11/08/2024 11:13 AM EST Tissue specimen (specimen) (Colon) 11/08/2024 8:49 AM EST 11/08/2024 11:13 AM EST Garrett Shabazz MD LAB PATHOLOGY [facility] [address] [place] [address], documented in this encounter Visit Diagnoses Diagnosis [...] documented as of this encounter Care Teams Agent Telegrapher Relationship Specialty Start Date End Date Jigar Patel PA [address] [place] [address] PCP - General 02/26/23 documented as of this encounter
--- OUTSIDE RECORDS SUMMARY | 2024-11-29 16:05 | XMS_ITS | Encounter Summary ---
Author Organization [facility] Address [address] [place] [address] Care Team Providers Care World Geography Teacher Name Role Phone Jigar Patel Primary Care Provider Encounter Details Date Type Department Care Team (Late st Contact Info) Description 10/22/2024 Telephone Gastroenterology - [address] [place] [phone] Garrett Shabazz MD [address] [place] [address] Social History Tobacco Use Types Packs/Day Years [...] Office Visit Gastroenterology - [address] [facility] [address] [place] [phone] Garrett Shbaazz MD [address] [facility] [address] [place] [address] documented as of this encounter Visit Diagnoses Not on filedocumented in this encounter Additional Health Concerns Infection Onset Date Last Indicated Resolved Time Gastrointestinal Rule-Out Comment:No testing required per PA 10/22/2024 10/22/202410/22 12:30 PM EST documented as of this encounter Care Teams World Geography Teacher Relationship Specialty Start Date End Date Jigar Patel PA [address] [place] [address] PCP - General 02/26/23 documented as of this encounter
--- OUTSIDE RECORDS SUMMARY | 2024-11-29 16:05 | XMS_ITS | Data Portability ---
Author Organization [email or web address] [employer] Address [address] [place] [address] Care Team Providers Care Supervisor Shaving And Splitting Name Role Phone [facility] Referring Provider Assessment Encounter Date Assessment Date Assessment LastModified by Organization Details LastModified Time 11/29/2022 11/29/2022 I have reviewed and agree with the assessment and plan as documented by the relief pharmacist. I provided real-time medical direction for this [...] assessment and plan as documented by the relief pharmacist. I provided real time medical direction for this encounter and was immediately available to provide additional phone based assistance as needed. History as noted by relief pharmacist. Pt with history of multiple abdominal/bowel surgeries including prior colostomy reversal. Pt has known ventral hernia and has been evaluated at [facility] for surgical repair of the hernia. Pt [...] since she was hoping to get to [facility] tomorrow, but is now stating that she is willing to go to the [facility] ED (since they are part of [facility]) for evaluation and possible transfer to [facility] for surgical evaluation. Bonbon Cream Warmer helps to arrange ambulance transport to the [facility] ED. I call an expect to the [facility] ED zinc furnace charger as well. [email or web address] Not available 09/02/2023 17:22:49 Plan of Treatment Reminders Order Date Submit Date Provider Last Modified By Organization Details Last Modified Time Details Appointments None recorded. Lab None recorded. Referral None recorded. Procedures None recorded. Surgeries None recorded. Imaging None recorded. Medication Orders Moisture Barrier Ointment 0.44 %-20.6 % 2022 023 [facility], [address] [facility], [place], [address], 3 12:47:52 Patient TargetsNo targets recorded. Patient [...] Not available Not available Not available 08/24/2024 [id number] SNOMED Not Available [employer] - production [...] Details Last Updated DateTime 3 16 /min 53192.6 8 g 98 % 98 % 79 /min 144 mm[Hg] 90 mm[Hg] Not Available [employer] - production 3 13:06:43 Date Recorded Heart rate Oxygen saturation Oxygen saturation in Arterial blood by Pulse oximetry Body temperature Respiratory rate Systolic blood pressure Diastolic blood pressure Provider Name and Address Organization Details Last Updated DateTime 3 85 /min 96 % 96 % 98.4 [degF] 16 /min 154 mm[Hg] 83 mm[Hg] Not Available [employer] - production 3 20:27:00 Date Recorded Respiratory rate Heart rate Oxygen saturation Oxygen saturation in Arterial blood by Pulse oximetry Body temperature Systolic blood pressure Diastolic blood pressure Provider Name and Address Organization Details Last Updated DateTime 3 18 /min 96 /min 95 % 95 % 98.7 [degF] 130 mm[Hg] 78 mm[Hg] Not Available [employer] - production 3 15:16:46 Date Recorded Respiratory rate Oxygen saturation Oxygen saturation in Arterial blood by Pulse oximetry Body temperature Heart rate Systolic blood pressure Diastolic blood pressure Provider Name and Address Organization Details Last Updated DateTime 3 16 /min 94 % 94 % 98.5 [degF] 83 /min 152 mm[Hg] 92 mm[Hg] Not Available [employer] - production 3 12:24:28 Social History None [...] Note 7502 Shelli Velez MD Main - [address] [phone] 11/29/2022 12:24:25 12/02/2022 12:22:07 Epigastric pain 91874581 R10.13 [id number] Chema Quezada MD [facility] [address] [place] [phone] 04/25/2023 13:06:41 04/29/2023 10:15:27 Carpal tunnel syndrome [id number] G56.01 This 63-year-ol d female with previous right carpal tunnel surgery has a history of right wrist and hand pain that has been worse over the past week. The pain hasn't responded to OTC meds. I ordered Toradol 30 mg IM. She will follow-up with her regular physicians . The patient agreed with this plan. [id number] Chema Quezada MD [facility] - [address] [phone] 04/26/2023 20:26:56 04/28/2023 10:33:04 Pain in limb 67803272 M79.609 This 63-year-ol d female continues to [...] option. The patient agreed with this plan. [id number] Christoph Blood [facility] [address] [place] [phone] 09/02/2023 15:16:43 09/02/2023 22:32:50 Abdominal pain 04846251 R10.9 Health Concerns Section Related Observation LastModified by Organization Detai ls LastModified Time None Recorded Concern Status LastModified by Organization Details LastModified Time None Recorded Advance Directives Directive None Recorded Payers Encounter Date Sequence Insurance Name Policy Number Policy Mcguire Covered Member ID Mcguire Member ID Guarantor Name 11/29/2022 1 [facility] - DOS PRIOR TO 2023 - DUAL ELIGIBLE (MEDICARE REPLACEMENT/ADV ANTAGE - HMO) Yu Morgan [id number] Yu Bojorquezt 04/25/2023 1 [facility] - DOS ON OR AFTER 2023 - DUAL ELIGIBLE - SKILLED NURSING OPTIONS AND ONE CARE (MEDICARE REPLACEMENT/ADV ANTAGE - HMO) Yu Morgan [id number] Yu Bojorquezt 04/26/2023 1 [facility] - DOS ON OR AFTER 2023 - DUAL ELIGIBLE - SKILLED NURSING OPTIONS AND ONE CARE (MEDICARE REPLACEMENT/ADV ANTAGE - HMO) Yu Morgan [id number] Yu Bojorquezt 09/02/2023 1 [facility] - DOS ON OR AFTER 2023 - DUAL ELIGIBLE - SKILLED NURSING OPTIONS AND ONE CARE (MEDICARE REPLACEMENT/ADV ANTAGE - HMO) uY Morgan [id number] Yu Bojorquezlizzy Notes Date Note Type Note [...] a referral, verified via . Members community TOUR MANAGER nurse present during time of triage. Member [...] evaluated in home. Shelli Velez MD [address] [facility],[address], [place], [address], [employer] 11/29/2022 12:46:44 04/25/2023 text/html HPI: Yu states since Friday her right hand throbs, she states she thinks it is nerve pain. She reports a history of carpal tunnel surgery in the past. She reports taking Tylenol with no relief and reports 10/10 pain and has an appt tomorrow with PCP. She states she would like an [facility] visit for pain relief. She reports she has an appt with PCP tomorrow. .................. .................. .................. .................. .................. .................. .................. ............... CRC Nursing Assessment: Comments: CRC RN DID NOT NEED FURTHER INFO .................. .................. .................. .................. .................. .................. .................. ............... Bonbon Cream Warmer Note From Dave Mai: pt requesting visit [...] and has good pulses and sensation. contacted [facility] ordered 30mg of Toradol IM . Toradol given in left deltoid . Pt educated on s/s warranting a 911 call/trip to the hospital. Pt advised to keep F/U appt tomorrow with her doctor. Bonbon Cream Warmer Allergies: Penicillin, Aspirin .................. .................. .................. .................. .................. .................. .................. ............... Disposition: Fulfilled Chema Quezada MD [address] [place] [address],[address], [place], [phone], [employer] 04/28/2023 17:27:10 04/26/2023 text/html HPI: Member with [...] DId not further info,nessa Quezada MD [address], [place], [address], [employer] 04/26/2023 20:32:11 09/02/2023 text/html This was a supervised home visit with relief pharmacist Brenda Newton. HPI: Member reports that she is experiencing abdominal and hernia pain today. Vomiting since this morning. Sweating. Member has hx of hernia pain and is trying to go to [facility] for a urgent medical visit tomorrow. Member [...] related to her hernia. [facility] while waiting for transport to be approved for hospital visit tomorrow. Member stated she will call 911 if her symptoms worsen .................. .................. .................. .................. .................. .................. .................. ............... Bonbon Cream Warmer Note From Brenda Newton: Upon arrival, pt was lying in bed on her right side. A/O x4 pt color is pale/warm/dry. Pt is not in any immediate respiratory distress. Pt stated that she has extensive abdominal issues and is supposed to have surgery in [place]. Pt states she has been in 10/10 pain x 2-3 days with nausea, vomiting, and bloody stools. Pt states she wants to go to the ER but insists she gets to [facility] because they are the only ones who will transfer her to [place]. Vitals as noted. Hernia can be visualized in the abdomen. Abdomen is non rigid but extremely tender to the touch. Pt denies any CP, dizziness and/or SOB. [facility] contacted and agrees pt needs to be evaluated in ER. Pt states [facility] will find someone to [facility] and once [facility] is activated, rep stated she told responding unit that pt must be taken to [facility]. EMS BLS unit arrives on scene and states they cannot transport outside their area. Dispatch is notified and asked if [facility] can transport pt to [facility]. [facility] arrives on scene to transport pt and [facility] is cleared. It is noted that pt stated she was at [facility] earlier today for blood work. Pt stated she was brought by transport but they will not do same day transports. [facility] contacted [facility] to alert of pt? s arrival. Call is then cleared. Bonbon Cream Warmer Allergies: Penicillin, Aspirin .................. .................. .................. .................. .................. .................. .................. ............... Disposition: Fulfilled Christoph Blood MD [address] [facility],[address], [place], [address], [email or web address] 09/02/2023 17:23:01 OBGyn Episode No OBEpisode recorded.
== END 2024-11-29 15:10 | disposition home or self-care (01) ==
LOC: HO.HOP 14:25
PROVIDERS: PCP Internal Medicine; Visit Provider Clinical Nurse Specialist Psychiatric/Mental Health
DX: F60.3 Borderline personality disorder (principal); F33.1 Major depressive disorder, recurrent, moderate; F41.1 Generalized anxiety disorder; F41.0 Panic disorder [episodic paroxysmal anxiety]; F43.12 Post-traumatic stress disorder, chronic
CPT/HCPCS: 99215

== ENCOUNTER → 2024-11-29 14:25 | Outpatient (BNVA) | payer OTHER, SELFPAY | PROVIDERS: PCP Internal Medicine; Visit Provider Clinical Nurse Specialist Psychiatric/Mental Health | DX: F33.9 Major depressive disorder, recurrent, unspecified (principal); F60.3 Borderline personality disorder; F41.1 Generalized anxiety disorder; F41.0 Panic disorder [episodic paroxysmal anxiety]; F43.12 Post-traumatic stress disorder, chronic | CPT/HCPCS: 99212 ==

== ENCOUNTER 2024-12-27 08:13 | Outpatient (AMB) | payer OTHER, SELFPAY ==
--- OUTSIDE RECORDS SUMMARY | 2024-12-27 08:23 | XMS_ITS | Clinical Summary ---
Author Organization [facility] Address [address] [place] [address] Phone Care Team Providers Care Senior Health Educator Name Role Phone Jigar Patel Primary Care Provider Allergies Active Allergy Reactions Criticality Noted Date Comments Doxycycline 01/11/2019 Nsaids (Non-Steroidal Anti-I nflammatory Drug) 01/11/2019 Penicillins 01/11/2019 Medications diazePAM (VALIUM) 10 mg tablet Active folic acid (FOLVITE) 1 mg tablet Take 1 Tab by mouth daily. Active levothyroxine (SYNTHROID, LEVOTHROID) 50 mcg tablet Active lisinopril-hydroCHLO ROthiazide (PRINZIDE,ZESTORETIC ) 20-12.5 mg per tablet Take 1 tablet [...] mouth daily. Active lidocaine (XYLOCAINE) 5 % ointmentIndications: Diarrhea following gastrointestinal surgery APPLY A SMALL AMOUNT TO AFFECTED AREA ON RECTUM 3 TIMES DAILY NEEDED 49.222 g 2 4 Active esomeprazole (NexIUM) [address] capsuleIndications:G ERD (gastroesophageal reflux disease) TAKE 1 CAPSULE BY MOUTH TWICE DAILY 56 capsule 3 4 Active pantoprazole (PROTONIX) 40 mg EC tablet 4 Active ylmnnd-kdhxgpjr-sufb ase (Creon) 36,000-114,000- 180,000 unit capsule,delayed release(DR/EC)Indica tions:Pancreatic insufficiency Take 2 capsules by mouth 4 (four) times a day. 600 capsule 3 4 025 Active apixaban (ELIQUIS) 5 mg tablet Take 1 tablet (5 mg total) by mouth 2 (two) times a day. Active oxyCODONE (ROXICODONE) 5 mg immediate release tablet Take 1 tablet (5 mg total) by mouth every 6 (six) hours if needed for severe pain. Max Daily Amount: 20 mg 10 tablet 4 Active diphenoxylate-atropi ne (LOMOTIL) 2.5-0.025 mg per tabletIndications:Di arrhea following gastrointestinal surgery TAKE 2 TABLETS BY MOUTH THREE TIMES DAILY NEEDED 180 tablet 4 5 Active loperamide (IMODIUM) 2 mg capsule TAKE 1 CAPSULE BY MOUTH FOUR TIMES DAILY NEEDED 30 capsule 5 Active loperamide (Imodium A-D) 2 mg tablet Take 1 tablet (2 mg total) by mouth 4 (four) times a day if needed for diarrhea. 360 tablet 3 5 025 Active Hospital, Clinic, or Other Facility Administered Medication [...] KALE (obstructive sleep apnea) 01/11/2019 Overview (08/31/2024): [facility] Home Polysomnogram: Date 02/04/2019; Wt [...] Encounters Date Type Department Care Team Description 12/01/2024 Telephone Gastroenterology - [address] [phone] Garrett Shabazz MD Provider Call Back 11/08/2024 8:39 AM EST Anesthesia Event [facility] Endoscopy [address] [place] [address] Monica Hernandez MD 11/08/2024 7:28 AM EST - 11/08/2024 11:59 PM EST Hospital Encounter [facility] Endoscopy [address] [place] [address] Garrett Shabazz MD Freeman, Katharine O, MD Abrokwah, Foster Myles G, CRNA History of colon polyps Discharge Disposition: Home or Self Care 10/26/2024 2:30 PM EST Office Visit Gastroenterology - [address] [place] [phone] Garrett Shabazz MD Functional diarrhea (Primary Dx); Incisional hernia, without obstruction or gangrene 10/26/2024 Telephone Gastroenterology - [address] [phone] Deny Hauser MS 10/22/2024 Telephone Gastroenterology - [address] [phone] Garrett Shabazz MD 10/21/2024 6:34 PM EST - 10/22/2024 4:43 PM EST Hospital Encounter [facility] Medical Surgical Unit [address] [place] [address] Kiran Collins MD Cheng, Ting Ho Danny, DO Fiallo, Viriato M, MD Generalized abdominal pain (Primary Dx) Discharge Disposition: Home or Self Care 10/21/2024 Telephone Gastroenterology - [address] [place] [phone] Garrett Shabazz MD 10/15/2024 Telephone Gastroenterology - [address] [place] [phone] Garrett Shabazz MD 10/14/2024 Telephone Gastroenterology - [address] [phone] Garrett Shabazz MD 10/11/2024 Telephone Gastroenterology - [address] [phone] Jerri Marsh MS 10/11/2024 Telephone Gastroenterology - [address] [facility] [address] [phone] Garrett Shabazz MD 10/05/2024 11:15 AM EST Office Visit Gastroenterology - [address] [address] Garrett Shabazz MD Diarrhea, unspecified type (Primary Dx); Incisional hernia, without obstruction or gangrene; Diarrhea following gastrointestinal surgery from Last 3 Months Surgical History Surgery Date Site/Laterality Comments HERNIA REPAIR PROCEDURE: MD REPAIR FIRST ABDOMINAL WALL HERNIA OTHER SURGICAL [...] Date Smoking Tobacco: Some Days Cigarettes 0.3 46.7 Started: 04/13/1978 Smokeless Tobacco: Never Tobacco Cessation:Ready to Q uit: Not Asked; Counseling Given: Not Answered Alcohol Use Standard Drinks/Week Comments No 0 (1 standard drink = 0.6 oz pur e alcohol) Interpersonal Safety Answer Date Record ed Physical Abuse 11/08/2024 Verbal Abuse 11/08/2024 Comments No Sex and Gender Information Value Date Recorded Sex Assigned at Female 11/05/2024 8:51 AM EST Legal Sex Female 12:24 AM EST Gender Identity Female 11/05/2024 8:51 AM EST Sexual Orientation Straight 11/05/2024 8: 51 AM EST Obstetrics History Last Filed Vital Signs Vital [...] Office Visit Gastroenterology - [address] [facility] [address] [place] [phone] Garrett Shabazz MD [address] [facility] [address] [place] [address] [place] [phone] Health Maintenance Due Date Last Done Comments Breast Cancer Screening 1960 Cervical Cancer Screening: Pap Smear 1983 DTaP,Tdap,and Td Vaccines (2 - Td or Tdap) 10/29/2009 10/29/1999 Zoster Vaccines (1 of 2) 2012 Pneumococcal Vaccine: 50+ Years (2 of 2 - PCV) 07/12/2012 07/12/2011 Pneumococcal Vaccine: Pediatrics (0 to 5 Years) [...] patient's age to complete this topic Meningococcal B Vacine Aged Out No lo nger eligible based on patient's age to complete [...] Maintenance Results * COLONOSCOPY Anesthesia - MAC; [facility] ENDOSCOPY (11/08/2024 8:55 AM EST) [...] Narrative 11/08/2024 8:59 AM EST [facility] GI Patient Name: Yu Morgan Procedure Date: [...] Procedure Code(s): ? --- Professional --- ? 41435, Colonoscopy, flexible; with biopsy, single or ? multiple CPT copyright 2020 [employer]. All rights reserved. The codes documented in this report are preliminary and upon professional fee coder review may be revised to meet current compliance requirements. MD Garrett Do MD 11/08/2024 8:59:29 AM This report has been signed electronically.Garrett Shabazz MD Number of Addenda: 0 Note Initiated On: 11/08/2024 8:40 AM Scope In: Scope Out: ? Endoscopy Department at [facility] - [address] [place] [address], ? [place] [address] Procedure Note Garrett Shabazz MD - 11/08/2024 [facility] GI Patient Name: Yu Morgan Procedure Date: [...] Findings: There was evidence of a prior tlo-ro-djpjrdq-colonic anastomosis in the sigmoid colon. This was patentand was characterized by healthy appearing mucosa. The anastomosis was traversed. The exam was otherwise without abnormality ondirect and retroflexion views. Clara-anal excoriationsnoted. Biopsies were taken with a cold forceps in therectum, in the sigmoid colon and in the distal ileum for histology. Procedure Code(s): --- Professional --- 93549, Colonoscopy, flexible; with biopsy, singleor multiple CPT copyright 2020 [employer]. All rights reserved. The codes documented in this report are preliminary and upon professional fee coder reviewmay be revised to meet current compliance requirements. MD Garrett Do MD 11/08/2024 8:59:29 AM This report has been signed electronically.Garrett Shabazz MD Number of Addenda: 0 Note Initiated On: 11/08/2024 8:40 AM Scope In: Scope Out: Endoscopy Department at [facility] - [address] [place] [phone] IMPRESSION: - Patent end-to-end ileo-colonic anastomosis, characterized [...] Continue present medications. - Await pathology results. us Garrett Shabazz MD GI~PROCEDURE ORDERABLES Final R esult * Tissue exam (11/08/2024 8:48 AM EST) Final Diagnosis A. Terminal ileum, biopsy: Small bowel mucosa with occasional reactive lymphoid aggregates; otherwise without diagnostic histopathologic change. B. Distal colon, biopsy: Colonic mucosa with surface reactive changes; otherwise without diagnostic histopathologic change. 11/09/2024 8:26 AM EST [facility] Gross Description A. Colon, biopsies [...] survive processing. dvb/DG 11/09/2024 8:26 AM EST [facility] Disclaimer Unless otherwise specified, all tissue is 10% NB formalin fixed and paraffin embedded. 11/09/2024 8:26 AM [facility] Tissue Colon structure / Unknown 11/08/2024 8:48 AM EST 11/08/2024 11:13 AM EST Tissue specimen (specimen) Colon structure / Unknown 11/08/2024 8:49 AM EST 11/08/2024 11:13 AM EST Garrett Shabazz MD LAB PATHOLOGY ORDERABLES Final Result [facility] [address] [place] [address], [place] [phone] * Lactate (10/22/2024 1:10 AM EST) Lactate 1.8 0.4 - 2.0 mmol/L LAB CHEMISTRY METHOD 10/22/2024 1:38 AM EST [facility] Blood Venous blood specimen / Unknown Venipuncture / Unknown 10/22/2024 1:10 AM EST 10/22/2024 1:15 AM EST Lobito CORONADO LAB BLOOD ORDERABLES Mignon l Result [facility] [address] [place] [address], [place] [phone] * ECG-Outside (10/22/2024) us Provider Onbase ECG ORDERABLES Final Result * CT Abdomen Pelvis w Contrast (10/21/2024 [...] 10/21/2024 23:03:[address] PROCEDURES Edited Res ult - Final * CBC auto differential (10/21/2024 6:54 PM EST) WBC 7.6 4.8 - 10.8 K/mcL LAB HEMETOLOGY METHOD 10/21/2024 7:54 PM [facility] RBC 4.10 3.80 - 4.80 M/mcL LAB HEMETOLOGY METHOD 10/21/2024 7:54 PM [facility] Hemoglobin 12.2 11.5 - 16.0 g/dL LAB HEMETOLOGY METHOD 10/21/2024 7:54 PM [facility] Hematocrit 36.8 35.0 - 47.0 % LAB HEMETOLOGY METHOD 10/21/2024 7:54 PM [facility] MCV 90.4 79.0 - 98.0 FL LAB HEMETOLOGY METHOD 10/21/2024 7:54 PM [facility] MCH 30.0 27.0 - 32.0 pcg LAB HEMETOLOGY METHOD 10/21/2024 7:54 PM [facility] MCHC 33.2 32.0 - 37.0 g/dL LAB HEMETOLOGY METHOD 10/21/2024 7:54 PM [facility] RDW 13.4 11.0 - 15.0 % LAB HEMETOLOGY METHOD 10/21/2024 7:54 PM [facility] Platelets 274 130 - 400 K/mcL LAB HEMETOLOGY METHOD 10/21/2024 7:54 PM [facility] MPV 9.9 7.0 - 11.0 FL LAB HEMETOLOGY METHOD 10/21/2024 7:54 PM [facility] NRBC 0.0 <1.0 % LAB HEMETOLOGY METHOD 10/21/2024 7:54 PM [facility] NRBC Absolute 0.00 <0.10 K/mcL LAB HEMETOLOGY METHOD 10/21/2024 7:54 PM [facility] Neutrophils Relative 48.0 % LAB HEMETOLOGY METHOD 10/21/2024 7:54 PM [facility] Lymphocytes Relative 37.3 % LAB HEMETOLOGY METHOD 10/21/2024 7:54 PM [facility] Monocytes Relative 10.8 % LAB HEMETOLOGY METHOD 10/21/2024 7:54 PM [facility] Eosinophils Relative 2.8 % LAB HEMETOLOGY METHOD 10/21/2024 7:54 PM [facility] Basophils Relative 0.8 % LAB HEMETOLOGY METHOD 10/21/2024 7:54 PM [facility] Immature Granulocytes Relative 0.3 % LAB HEMETOLOGY METHOD 10/21/2024 7:54 PM [facility] Neutrophils Absolute 3.67 1.50 - 7.00 K/mcL LAB HEMETOLOGY METHOD 10/21/2024 7:54 PM [facility] Lymphocytes Absolute 2.84 1.00 - 5.00 K/mcL LAB HEMETOLOGY METHOD 10/21/2024 7:54 PM [facility] Monocytes Absolute 0.82 0.20 - 1.00 K/mcL LAB HEMETOLOGY METHOD 10/21/2024 7:54 PM EST [facility] Eosinophils Absolute 0.21 0.00 - 0.50 K/mcL LAB HEMETOLOGY METHOD 10/21/2024 7:54 PM EST [facility] Basophils Absolute 0.06 0.00 - 0.20 K/mcL LAB HEMETOLOGY METHOD 10/21/2024 7:54 PM [facility] Immature Granulocytes Absolute 0.02 0.00 - 0.03 K/[facility] LAB HEMETOLOGY METHOD 10/21/2024 7:54 PM [facility] Blood Venous blood specimen / Unknown Venipuncture / Unknown 10/21/2024 6:54 PM EST 10/21/2024 7:49 PM EST us Kiran Collins MD LAB BLOOD ORDERABLES Final Resu lt [facility] [address] [place] [address], * (ABNORMAL) Comprehensive metabolic panel (10/21/2024 6:54 PM EST) Sodium 135 133 - 145 mmol/L LAB CHEMISTRY METHOD 10/21/2024 8:27 PM [facility] Potassium 3.6 3.5 - 5.5 mmol/L LAB CHEMISTRY METHOD 10/21/2024 8:27 PM [facility] Comment:Hemolysis present Chloride 101 96 - 110 mmol/L LAB CHEMISTRY METHOD 10/21/2024 8:27 PM [facility] CO2 25 21 - 32 mmol/L LAB CHEMISTRY METHOD 10/21/2024 8:27 PM [facility] Anion Gap 9 3 - 11 LAB CHEMISTRY METHOD 10/21/2024 8:27 PM [facility] Glucose 129(H) 70 - 100 mg/dL LAB CHEMISTRY METHOD 10/21/2024 8:27 PM [facility] BUN 6 5 - 25 mg/dL LAB CHEMISTRY METHOD 10/21/2024 8:27 PM [facility] Creatinine 0.85 0.50 - 1.10 mg/dL LAB CHEMISTRY METHOD 10/21/2024 8:27 PM [facility] eGFR 78 >=60 mL/min/1. 73m2 LAB CHEMISTRY METHOD 10/21/2024 8:27 PM [facility] Comment:Calculation based on the??Chronic Kidney Disease Epidemiology Collaboration (CKD-EPI) equation refit??without adjustment for race. BUN/Creatinine Ratio 7.1 LAB CHEMISTRY METHOD 10/21/2024 8:27 PM [facility] Calcium 8.6 8.5 - 10.5 mg/dL LAB CHEMISTRY METHOD 10/21/2024 8:27 PM [facility] AST (SGOT) 20 10 - 42 unit/L LAB CHEMISTRY METHOD 10/21/2024 8:27 PM [facility] Comment:Hemolysis present ALT (SGPT) 26 10 - 60 unit/L LAB CHEMISTRY METHOD 10/21/2024 8:27 PM [facility] Alkaline Phosphatase 122(H) 42 - 121 unit/L LAB CHEMISTRY METHOD 10/21/2024 8:27 PM [facility] Total Protein 6.3 6.0 - 8.0 g/dL LAB CHEMISTRY METHOD 10/21/2024 8:27 PM [facility] Albumin 3.6 3.2 - 5.0 g/dL LAB CHEMISTRY METHOD 10/21/2024 8:27 PM [facility] Total Bilirubin 0.2 0.0 - 1.4 mg/dL LAB CHEMISTRY METHOD 10/21/2024 8:27 PM [facility] Blood Venous blood specimen / Unknown Venipuncture / Unknown 10/21/2024 6:54 PM EST 10/21/2024 7:49 PM EST us Kiran Collins MD LAB BLOOD ORDERABLES Final Resu lt [facility] [address] [place] [address], * (ABNORMAL) Pancreatic elastase 1 (10/07/2024 9:54 AM EST) Pancreatic Elastase 1 35.2(L) >200 mcg/g 10/11/2024 1:23 PM EST [facility] Comment: Adult and Pediatric Referance Ranges for Pancreatic Elastase-1: Normal: ? >200 mcg/g Moderate Pancreatic Insufficiency: ?100-200 mcg/g Severe Pancreatic Insufficiency: ?<100 mcg/g Test performed at [facility], [address] [place], [place] ??[address] ? [phone] Lacey Cabrera MD, PhD - Community Relations Police Lieutenant Stool Rectum structure / Unknown Non-blood Collection / Unknown 10/07/2024 9:54 AM EST 10/07/2024 11:36 AM EST Garrett Shabazz MD LAB BODY FLUIDS AND STOOLS ORDE RABLES Final Result [facility] [address] [place] [address] * Tissue transglutaminase, IgA (10/05/2024 11:18 AM EST) Tissue Transglutaminase Ab, IgA Quant 1 <4 unit/mL LAB CHEMISTRY METHOD 10/06/2024 1:33 PM EST [facility] Tissue Transglutaminase Ab, IgA Negative Negative LAB CHEMISTRY METHOD 10/06/2024 1:33 PM EST [facility] Blood Venous blood specimen / Unknown Venipuncture / Unknown 10/05/2024 11:18 AM EST 10/05/2024 12:02 PM EST Garrett Shabazz MD LAB BLOOD ORDERABLES Final Resu lt Performing Organization Address [facility]/ZIP Co de Phone Number [facility] [address] [place] [address], [place] [phone] * Immunoglobulin IgA (10/05/2024 11:18 AM EST) [facility] IgA 165 61 - 348 mg/dL LAB CHEMISTRY METHOD 10/05/2024 12:54 PM EST [facility] Blood Venous blood specimen / Unknown Venipuncture / Unknown 10/05/2024 11:18 AM EST 10/05/2024 12:03 PM EST Garrett Shabazz MD LAB BLOOD ORDERABLES Final Resu lt Performing Organization Address [facility] Co de Phone Number [facility] [address] [place] [address], [place] [phone] * Lipid panel (10/01/2023) [facility] LDL/HDL Ratio 0 Comment:No Interpretation, A bstracted Triglycerides 0 mg/dL Comment:No Interpretation, A bstracted Cholesterol 0 mg/dL Comment:No Interpretation, A bstracted HDL 0 mg/dL Comment:No Interpretation, A bstracted LDL Cholesterol 0 mg/dL Comment:No Interpretation, A bstracted Blood Venous blood specimen / Unknown [facility] Provider LAB BLOOD ORDERABLES Mignon l Result from Last 3 Months or Most Recently Relevant to Health [place] [id number] [facility] MEDICARE Member Subscriber Plan / Payer (Ef fective 2019-Present) Name:Yu Morgan Relation to Subscriber:Self Name:Yu Morgan Payer ID:[id number] Group ID:[id number] Type:Not on file Address: [facility] [address] [id number] Advance Directives Documents on File Type Date Recorded 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 Care Teams Senior Health Educator Relationship Specialty Start Date End Date Jigar Patel PA PCP - General 02/26/23
--- OUTSIDE RECORDS SUMMARY | 2024-12-27 08:24 | XMS_ITS | Data Portability ---
Author Organization [employer] Address [address] [place] [address] Care Team Providers Care Homeworker Name Role Phone [facility] Referring Provider Assessment Encounter Date Assessment Date Assessment LastModified by Organization Details LastModified Time 11/29/2022 11/29/2022 I have reviewed and agree with the assessment and plan as documented by the operations supervisor 2nd shift. I provided real-time medical direction for this [...] assessment and plan as documented by the operations supervisor 2nd shift. I provided real time medical direction for this encounter and was immediately available to provide additional phone based assistance as needed. History as noted by operations supervisor 2nd shift. Pt with history of multiple abdominal/bowel surgeries including prior colostomy reversal. Pt has known ventral hernia and has been evaluated at [facility] for surgical repair of the hernia. [...] since she was hoping to get to [facility] tomorrow, but is now stating that she is willing to go to the [facility] ED (since they are part of [facility]) for evaluation and possible transfer to [facility] for surgical evaluation. Head Animal Keeper helps to arrange ambulance transport to the [facility] ED. I call an expect to the [facility] ED charge entry specialist as well. btils Not available 09/02/2023 17:22:49 Plan of Treatment Reminders Order Date Submit Date Provider Last Modified By Organization Details Last Modified Time Details Appointments None recorded. Lab None recorded. Referral None recorded. Procedures None recorded. Surgeries None recorded. Imaging None recorded. Medication Orders Moisture Barrier Ointment 0.44 %-20.6 % 2022 023 [facility], [address] [facility], [place], [address], 3 12:47:52 Patient TargetsNo targets recorded. Patient InstructionsNo instructions recorded. Reason for Referral None Reported. Medical Equipment None Reported. Allergies Allergen ID Allergen Name Allergen Category Reaction Reaction Severity Criticality Documentation Date Start Date Code Code System Note Provider Name and Address Organization Details Recorded Time 8461 Product containin g penicilli n (product) medicatio n Not available Not available Not available 08/24/2024 36565 8001 SNOMED Not Available [facility] - production 4 03:44:27 8462 aspirin medicatio n Not available Not available Not available 08/24/2024 1191 RxNorm Not Available [facility] - production 03:44:27 Medications Name Sig Start Date Stop [...] Details Last Updated DateTime 3 16 /min 22265.6 8 g 98 % 98 % 79 /min 144 mm[Hg] 90 mm[Hg] Not Available [facility] - production 3 13:06:43 Date Recorded Heart rate Oxygen saturation Oxygen saturation in Arterial blood by Pulse oximetry Body temperature Respiratory rate Systolic blood pressure Diastolic blood pressure Provider Name and Address Organization Details Last Updated DateTime 3 85 /min 96 % 96 % 98.4 [degF] 16 /min 154 mm[Hg] 83 mm[Hg] Not Available [facility] - production 3 20:27:00 Date Recorded Respiratory rate Heart rate Oxygen saturation Oxygen saturation in Arterial blood by Pulse oximetry Body temperature Systolic blood pressure Diastolic blood pressure Provider Name and Address Organization Details Last Updated DateTime 3 18 /min 96 /min 95 % 95 % 98.7 [degF] 130 mm[Hg] 78 mm[Hg] Not Available [facility] production 3 15:16:46 Date Recorded Respiratory rate Oxygen saturation Oxygen saturation in Arterial blood by Pulse oximetry Body temperature Heart rate Systolic blood pressure Diastolic blood pressure Provider Name and Address Organization Details Last Updated DateTime 3 16 /min 94 % 94 % 98.5 [degF] 83 /min 152 mm[Hg] 92 mm[Hg] Not Available [facility] - production 3 12:24:28 Social History None [...] Note [id number] Shelli Velez MD Main - [address] [phone] 11/29/2022 12:24:25 12/02/2022 12:22:07 Epigastric pain 73808987 R10.13 [id number] Chema Quezada MD Main - [facility] [address] [place] [phone] 04/25/2023 13:06:41 04/29/2023 10:15:27 Carpal tunnel syndrome [id number] G56.01 This 63-year-ol d female with previous right carpal tunnel surgery has a history of right wrist and hand pain that has been worse over the past week. The pain hasn't responded to OTC meds. I ordered Toradol 30 mg IM. She will follow-up with her regular physicians . The patient agreed with this plan. [id number] Chema Quezada MD Main - [address] [phone] 04/26/2023 20:26:56 04/28/2023 10:33:04 Pain in limb 89435456 M79.609 This 63-year-ol d female continues to [...] option. The patient agreed with this plan. [id number] Christoph Blood MD Main - [facility] [address] [place] [phone] 09/02/2023 15:16:43 09/02/2023 22:32:50 Abdominal pain 61237259 R10.9 Health Concerns Section Related Observation LastModified by Organization Detai ls LastModified Time None Recorded Concern Status LastModified by Organization Details LastModified Time None Recorded Advance Directives Directive None Recorded Payers Encounter Date Sequence Insurance Name Policy Number Policy Mcguire Covered Member ID Mcguire Member ID Guarantor Name 11/29/2022 1 [facility] - DOS PRIOR TO 2023 - DUAL ELIGIBLE (MEDICARE REPLACEMENT/ADV ANTAGE - HMO) Yu Morgan [id number] Yu Morgan 04/25/2023 1 [facility] - DOS ON OR AFTER 2023 - DUAL ELIGIBLE - CARE HOME OPTIONS AND ONE CARE (MEDICARE REPLACEMENT/ADV ANTAGE - HMO) Yu Morgan [id number] Yu Morgan 04/26/2023 1 [facility] - DOS ON OR AFTER 2023 - DUAL ELIGIBLE - CARE HOME OPTIONS AND ONE CARE (MEDICARE REPLACEMENT/ADV ANTAGE - HMO) Yu Morgan [id number] Yu Morgan 09/02/2023 1 [facility] - DOS ON OR AFTER 2023 - DUAL ELIGIBLE - CARE HOME OPTIONS AND ONE CARE (MEDICARE REPLACEMENT/ADV ANTAGE - HMO) Yu Morgan [id number] Yu Morgan Notes Date Note Type Note Provider Name [...] a referral, verified via . Members community ENRICHMENT SPECIALIST nurse present during time of triage. Member [...] evaluated in home. Shelli Velez MD [address] [facility],[address], [place], [address], [employer] 11/29/2022 12:46:44 04/25/2023 text/html HPI: Yu states since Friday her right hand throbs, she states she thinks it is nerve pain. She reports a history of carpal tunnel surgery in the past. She reports taking Tylenol with no relief and reports 10/10 pain and has an appt tomorrow with PCP. She states she would like an [facility] visit for pain relief. She reports she has an appt with PCP tomorrow. .................. .................. .................. .................. .................. .................. .................. ............... CRC Nursing Assessment: Comments: CRC RN DID NOT NEED FURTHER INFO .................. .................. .................. .................. .................. .................. .................. ............... Head Animal Keeper Note From Dave Mai: pt requesting visit [...] well and has good pulses and sensation. VM contacted [facility] ordered 30mg of Toradol IM . Toradol given in left deltoid . Pt educated on s/s warranting a 911 call/trip to the hospital. Pt advised to keep F/U appt tomorrow with her doctor. Head Animal Keeper Allergies: Penicillin, Aspirin .................. .................. .................. .................. .................. .................. .................. ............... Disposition: Fulfilled Chema Quezada MD [address] [facility],[address], [place], [address], [employer] 04/28/2023 17:27:10 04/26/2023 text/html HPI: Member with [...] DId not further info,nessa Quezada MD [address], [place], [address], [employer] 04/26/2023 20:32:11 09/02/2023 text/html This was a supervised home visit with operations supervisor 2nd shift Brenda Newotn. HPI: Member reports that she is experiencing abdominal and hernia pain today. Vomiting since this morning. Sweating. Member has hx of hernia pain and is trying to go to [facility] for a urgent medical visit tomorrow. [...] related to her hernia. [facility] waiting for transport to be approved for hospital visit tomorrow. Member stated she will call 911 if her symptoms worsen .................. .................. .................. .................. .................. .................. .................. ............... Head Animal Keeper Note From Brenda Newton: Upon arrival, pt was lying in bed on her right side. A/O x4 pt color is pale/warm/dry. Pt is not in any immediate respiratory distress. Pt stated that she has extensive abdominal issues and is supposed to have surgery in [place]. Pt states she has been in 10/10 pain x 2-3 days with nausea, vomiting, and bloody stools. Pt states she wants to go to the ER but insists she gets to [facility] because they are the only ones who will transfer her to [place]. Vitals as noted. Hernia can be visualized in the abdomen. Abdomen is non rigid but extremely tender to the touch. Pt denies any CP, dizziness and/or SOB. [facility] contacted and agrees pt needs to be evaluated in ER. Pt states [facility] will find someone to [facility] and once lifeline is activated, rep stated she told responding unit that pt must be taken to [facility]. EMS BLS unit arrives on scene and states they cannot transport outside their area. Dispatch is notified and asked if [facility] can transport pt to [facility]. [facility] arrives on scene to transport pt and [facility] is cleared. It is noted that pt stated she was at [facility] earlier today for blood work. Pt stated she was brought by transport but they will not do same day transports. [facility] contacted [facility] to alert of pt? s arrival. Call is then cleared. Head Animal Keeper Allergies: Penicillin, Aspirin .................. .................. .................. .................. .................. .................. .................. ............... Disposition: Fulfilled Christoph Blood MD [address] [facility],[address], [place], [address], [employer] 09/02/2023 17:23:01 OBGyn Episode No OBEpisode recorded.
--- OUTSIDE RECORDS SUMMARY | 2024-12-27 08:24 | XMS_ITS | Encounter Summary ---
Author Organization [facility] Address [address] [place] [address] Care Team Providers Care Veneer Sander Name Role Phone Jigar Patel Primary Care Provider Reason for Visit * Reason Onset Date Comments Provider Call Back 12/01/2024 Encounter Details Date Type Department Care Team (Late st Contact Info) Description 12/01/2024 Telephone Gastroenterology - [address] [facility] [address] [place] [phone] Garrett Rico MD [address] [place] [address] Provider Call Back Social History Tobacco Use Types Packs/Day Years Used Date Smoking Tobacco: Some Days Cigarettes 0.3 46.7 Started: 04/13/1978 Smokeless Tobacco: Never Alcohol Use [...] Orientation Straight 11/05/2024 8: 51 AM EST documented as of this encounter Functional Status * Are you deaf or do you have serious difficulty hearing? Answer Date of Assessment Author No 10/21/2024 11:00 PM EST Cheyanne Hodge RN * Are you blind or do you have serious difficulty seeing, even when wearing glasses? Answer Date of Assessment Author No 10/21/2024 11:00 PM Cheyanne Galindo RN * Do you have serious difficulty walking or climbing stairs? Answer Date of Assessment Author No 10/21/2024 11:00 PM Cheyanne Galindo RN * Do you have serious difficulty dressing or bathing? Answer Date of Assessment Author No 10/21/2024 11:00 PM Cheyanne Galindo RN * Because of a physical, mental, or emotional condition, do you have serious difficulty doing errandsalone such as visiting the doctor? Answer Date of Assessment Author No 10/21/2024 11:00 PM Cheyanne Galindo RN documented as of this encounter Mental Status * Because of a physical, mental, or emotional condition, do you have serious difficulty concentrating, remembering, or making decisions? (5 years old or older) Answer Entry Date Author No 10/21/2024 11:00 PM Cheyanne Galindo RN documented in this encounter Progress Notes * Eileen Smith MA - 12/08/2024 10:54 AM EST SPOKE WITH PT PER DR RICO- PER PT TO GO TO [facility] , THEY HOPEFULLY WILL GET HER A SURGICAL CONSULT. * Desiree Solano - 12/08/2024 10:04 AM EST Patient calling states she is looking for treatment options and has an appt with Dr Patten January 17, however patient cannot wait that long and was told that we can try to call Dr Patten's office to get her a sooner appt. Patient states she was up all night long, used the bathroom over 30 times and is in agony. Her hernia is so bad and patient states she cannot live like this every day with [facility] OR pain. * Garrett Rico MD - 12/01/2024 12:01 PM EST She called complaining that her hernia is getting larger and larger and more and more uncomfortable. She notes that Dr. Walsh has not wanted to operate on her for this and feels increasingly frustrated. As I shared with her she is a higher risk operative candidate and I am not certain how many of her symptoms fixing this hernia will resolve. She is interested in another opinion somewhere to try and set her up with Dr. Yo Patten at [facility] * eJrri Marsh [place] - 12/01/2024 9:02 AM EST Pt wants a call back to discuss her painful hernia documented in this encounter Plan of Treatment Upcoming Encounters Date Type Department Care Team (Late st Contact Info) Description 01/07/2025 10:10 AM EDT Office Visit Gastroenterology - [address] [facility] [address] [place] [phone] Garrett Rico MD [address] [place] [address] documented as of this encounter Visit Diagnoses Not on filedocumented in this encounter Care Teams Veneer Sander Relationship Specialty Start Date End Date Jigar Patel PA PCP - General 02/26/23 documented as of this encounter
--- NOTE | 2024-12-27 08:35 | MHC.PC.OV ---
Vital Signs 12/27/24 08:37 Height 5 ft 3 in Weight 227 lb 2 oz BMI 40.2 BP 140/64 H Blood Pressure Location Lt brachial Position Sitting Pulse 97 Pulse Source Pulse Oximeter Temp 96.9 F Temp Source Temporal Artery Scan Pulse Oximetry (%) 94 Oxygen Delivery Method Room Air Intake Visit Reasons: f/u GI issues Intake Note: Patient is here for hospital discharge follow up. Patient was discharged from [facility] on 12/14/24. Deburr Operator Required: No Geek Squad Agent: Not Required per policy Accompanied by: Self / Same As Patient Allergies baclofen Allergy (Severe, Verified 12/27/24 08:50) GI upset dexamethasone Allergy (Severe, Verified 12/27/24 08:50) Vomiting doxycycline Allergy (Severe, Verified 12/27/24 08:50) Vomiting naproxen [Aleve] Allergy (Severe, Verified 12/27/24 08:50) Vomiting penicillin V Allergy (Severe, Verified 12/27/24 08:50) vomitting Sulfa (Sulfonamide Antibiotics) Allergy (Severe, Verified 12/27/24 08:50) Vomiting ibuprofen [Advil] Allergy (Intermediate, Verified 12/27/24 08:50) Vomiting codeine [Codeine] Allergy (Mild, Verified 12/27/24 08:50) VOMITING aspirin [ASPIRIN] Adverse Reaction (Severe, Verified 12/27/24 08:50) VOMITING Medication List - Last Reconciled 12/27/24 by Jigar Patel PA-C acetaminophen ER 650 mg PO Q12H PRN 30 days albuterol sulfate 90 mcg/actuation 2 inhalations inhalation Q6H PRN 30 days apixaban (Eliquis) 5 mg PO BID 30 days atorvastatin 20 mg PO DAILY 90 days cane As directed chair, wheel (Wheel chair) As directed cholecalciferol (vitamin D3) 25 mcg PO DAILY diaper,brief,adult,disposable As directed size large diazepam 10 mg (2 x 5 mg) PO BID diclofenac sodium 3% 1 appl topical BID 4 weeks diphenoxylate-atropine 2.5-0.025 mg 6 tabs orally daily; disposable gloves As directed escitalopram oxalate (Lexapro) 20 mg PO DAILY bpiijhtpdxf-hevifmqnx-ifkbthwt 100-62.5-25 mcg (Trelegy Ellipta) 1 ea inhalation DAILY 30 days furosemide 40 mg PO BID gabapentin 300 mg PO BID gloves, latex with aloe vera (Aloe Vera Latex Gloves) 1 ea miscellaneous DAILY 30 days [hand held shawer spray As directed] levothyroxine 50 mcg PO DAILY lidocaine 5% 1 appl topical DAILY 30 days pbpkjx-xjuzevdh-qbykqhy 36,000-114,000- 180,000 unit (Creon) caps PO lisinopril 30 mg PO DAILY loperamide 4 mg PO QID menthol-zinc oxide 0.44-20.6 % (Calmoseptine) 1 appl topical QID 30 days multivitamin 1 tab PO DAILY 90 days ondansetron HCl 8 mg PO QID 30 days oxycodone 5 mg PO Q6H pantoprazole 40 mg PO DAILY potassium chloride ER (Klor-Con M) 20 mEq PO DAILY 30 days potassium chloride ER 20 mEq PO DAILY [pull ups As directed] quetiapine (Seroquel) 50 mg (2 x 25 mg) PO BEDTIME [right hand brace As directed] simethicone (Gas Relief (simethicone)) 125 mg PO TID PRN 30 days sitz bath ([employer] Sitz Bath) As directed thiamine HCl (vitamin B1) 100 mg PO DAILY 90 days tizanidine 2 mg PO BID PRN 15 days walker (Ultra-Light Rollator misc) As directed [washable bedpads As directed] Tobacco use date assessed: 12/27/24 Dental Screening Dental Screen Date: 12/27/24 Did you have a dental visit in the last 12 months?: Yes Did you have a dental problem in the last 6 months where you did not have access to dental care?: No Was dental information given to patient?: Patient has dentist HPI f/u GI issues HPI Details The patient is a 64-year-old female presenting with abdominal pain and gastrointestinal symptoms. -->Recently seen at [facility] on chronic abdominal pain and bloody diarrhea. CT abdomen done while at the ER showing 2 ventral hernias The symptoms reportedly stem from pancreatic insufficiency and ongoing pancreatitis. The patient describes persistent, severe abdominal pain radiating to the back, exacerbated by eating, and accompanied by frequent diarrhea described as malodorous and fatty, suggestive of malabsorption. The symptoms have been ongoing with little relief from current medication regimens. The patient also reports a history of chronic diarrhea that correlates with her diagnosis of pancreatic insufficiency, leading to significant weight loss and decreased functional status, affecting daily living activities. She has concurrent issues with her abdominal hernia, for which there is a presence of tissue, necessitating surgical evaluation. The hernia complicates her condition due to its increasing size and potential complications, including intestinal obstruction. Her medical history also includes hypercholesterolemia, last checked with low cholesterol levels at 106 and LDL at 35, which was managed with atorvastatin until it was discontinued in March. She has been advised to resume treatment for high cholesterol as recent evaluations suggest elevated levels. S She now has limited options for resolution of her hernias. She continues to be in pretty severe pain. Her last hospital admission was strictly for pain control related to her incisional hernias. As above she has not been deemed a surgical candidate. She will be following up with the bariatric surgeon for discussion. --> unfortunately her quality of life is pretty poor and she is quite discouraged by this. We have agreed to start a opiate pain contract to help her with her pain in hopes that will help her quality of life for the time being. She will use acetaminophen 650 along with p.r.n. use of oxycodone 5 mg q.6 hours for her abdominal related pain. [facility] Medical History (Updated 12/27/24 @ 09:13 by Jigar Patel PA-C) History of pulmonary embolism Congestive heart failure HTN (hypertension) HLD (hyperlipidemia) Major depression, recurrent, chronic Generalized anxiety disorder with panic attacks Bipolar disorder, mixed Nicotine dependence, cigarettes, uncomplicated Hypokalemia Flat feet, bilateral Chronic post-traumatic stress disorder (PTSD) Pulmonary nodules Chronic respiratory failure COPD (chronic obstructive pulmonary disease) Abdominal hernia Right lumbar radiculopathy Osteopenia Surgical History History of blepharoplasty History of ventral hernia repair History of resection of small bowel History of ileostomy History of hernia repair History of reversal of ileostomy History of colectomy History of colonoscopy History of umbilical hernia repair History of bladder surgery History of total abdominal hysterectomy and bilateral salpingo-oophorectomy History of cholecystectomy History of appendectomy History of tonsillectomy Family History Father Renal cell cancer Prostate cancer Leukemia Diabetes Hypertension Mother Hypertension Paternal Grandmother Colon cancer Maternal Grandfather Myocardial infarction Sister Lupus Daughter In good health Other Mental health disorder Social History Housing: Apartment Alcohol intake: never Patient Tobacco Use Status: Current someday Tobacco user Tobacco use type: Cigarette Cigarettes Per Day: 10 Years Smoked: (onset 17yo, 1/2-1ppd x 47yrs, 30pyh) e-Cigarette/Vaping Use: Never Used service: No Current occupational status: disabled Current occupation: right hand dominant Cognitive needs: Yes (cane/walker) Hearing needs: No Vision needs: Yes (glasses) Questionnaire PHQ-9 Over the last 2 weeks, how often have you been bothered by any of the following problems? 1. Little interest or pleasure in doing things: not at all 2. Feeling down, depressed, or hopeless: not at all 3. Trouble falling or staying asleep, or sleeping too much: not at all 4. Feeling tired or having little energy: not at all 5. Poor appetite or overeating: not at all 6. Feeling bad about yourself - or that you are a failure or have let yourself or your family down: not at all 7. Trouble concentrating on things, such as reading the newspaper or watching television: not at all 8. Moving or speaking so slowly that other people could have noticed. Or the opposite - being so fidgety or restless that you have been moving around a lot more than usual: not at all 9. Thoughts that you would be better off or of hurting yourself in some way: not at all Total score: 0 Depression Screening Interpretation: Negative Depression Screening Done: Yes 97869 - PHQ-9 Billing: Yes Source: Developed by Drs. Enoch Vallecillo, Anum Jung, Nathan Tiwari and colleagues, with an educational clifton from [employer]. Thrive Questionnaire Date Thrive assessed: 12/27/24 I am a: Patient What is your living situation today?: I have a steady place to live Within the past 12 months, did the food you bought not last and you didn't have the money to get more?: Never true Within the past 12 months, did you worry whether your food would run out before you got money to buy more?: Never true Do you have trouble paying for medicines?: No Do you have trouble getting transportation to medical appointments?: No Do you have trouble paying your heating and electricity bill?: No Do you have trouble taking care of your child, family member or friend?: No Do you have trouble with day-to-day activities such as bathing, preparing meals, shopping, managing finances, etc.?: No Are you currently unemployed and looking for a job?: No Are you interested in more education?: No Please select the resources that you would like help with: None Currently or been in a relationship where the following occur: No concerns reported THRIVE Score: 0 AUDIT C Alcohol Use Questionnaire (AUDIT-C) 1. How often do you have a drink containing alcohol?: Never Total Score: 0 EMILY-7 AMB Questionnaire EMILY-7 Date EMILY - 7 assessed: 12/27/24 Feeling nervous, anxious, or on edge: 0 = Not at all Not being able to stop or control worryin = Not at all Worrying too much about different things: 0 = Not at all Trouble relaxin = Not at all Being so restless that it is hard to sit still: 0 = Not at all Becoming easily annoyed or irritable: 0 = Not at all Feeling afraid as if something awful might happen: 0 = Not at all Total EMILY-7 score (0-4 normal; 5-9 mild; 10-14 moderate; 15-21 severe): 0 Source: Developed by Drs. Enoch Vallecillo, Anum Jung, Nathan Tiwari and colleagues, with an educational clifton from [employer]. EMILY-7 Assessment Billing EMILY-7 Assessment Tool: EMILY-7 Assessment 06302 Review of Systems Const Denies headache(s) Eyes Denies loss of vision ENT Denies vertigo, Denies dizziness, Denies headache(s) and Denies sore throat Card Denies chest pain, Denies leg edema and Denies lightheadedness Resp Denies cough, Denies hemoptysis and Denies wheezing GI Denies abdominal pain, Denies melena, Denies constipation, Denies diarrhea and Denies vomiting Denies urinary frequency, Denies dysuria and Denies urinary urgency Musc Denies arthralgias, Denies joint swelling, Denies numbness and Denies tingling Neuro Denies Abnormal speech present, Denies behavioral changes, Denies vertigo, Denies dizziness, Denies headache(s), Denies loss of vision, Denies memory loss, Denies numbness and Denies tingling Psych Denies anxiety, Denies behavioral changes, Denies depression, Denies memory loss and Denies panic attacks Patrick/Lymph Denies easy bleeding and Denies easy bruising Aller/Immun Denies wheezing Physical exam (Primary Care) Vital Signs: Last Vital Signs Temp 96.9 F 12/27/24 08:37 Pulse 97 12/27/24 08:37 BP 140/64 H 12/27/24 08:37 Pulse Ox 94 12/27/24 08:37 Oxygen Delivery Method Room Air 12/27/24 08:37 BMI result Body Mass Index 40.2 Tobacco/Smoking Status: Tobacco use Status Tobacco use date assessed 12/27/24 12/27/24 08:45 Patient Tobacco Use Status Current someday Tobacco 12/27/24 08:45 Tobacco use type Cigarette 12/27/24 08:45 e-Cigarette/Vaping Use Never Used 12/27/24 08:45 PHQ-9: PHQ-9 Score PHQ-9: Total score 0 12/27/24 08:55 Depression Screening Interpretation: Negative Thrive Assessment: Date of Thrive Assessment Date Thrive assessed 12/27/24 12/27/24 08:45 Currently or been in a relationship where the following occur: No concerns reported Const General: healthy appearing, no acute distress, alert and awake Nutritional Appearance: well nourished Orientation/consciousness: oriented to person, oriented to place and oriented to time HENMT Ears: TM's normal bilaterally General nose exam: Normal nasal mucous membranes and turbinates present Eyes Conjunctivae: conjunctivae normal Sclerae: sclerae normal Pupils: Equal, round and reactive pupils present Neck Neck: Yes no lymphadenopathy and Yes no JVD Thyroid: Thyroid normal Carotids: no bruits Resp Effort & Inspection: normal respiratory effort and not tachypneic Auscultation: no crackles, no rales, no rhonchi and no wheezes Cardio Rate: regular rate Rhythm: regular rhythm Heart sounds: no murmurs and normal S1 and S2 GI Palpation (GI): Soft to palpation, nontender, no hepatomegaly and no splenomegaly Auscultation: normal bowel sounds Abdomen image: 1. NOTED ABDOMINAL BULGING LUMPS. Skin General skin exam: no rashes or lesions noted and dry skin Neuro General: oriented to person, oriented to place and oriented to time Cranial nerves: Yes Equal, round and reactive pupils present Speech: No Abnormal speech present Gait exam (Neuro): Normal gait present Motor exam (neuro): no tremor noted Extrem Right upper extremity: full ROM Left upper extremity: full ROM Right lower extremity: full ROM; no edema Left lower extremity: full ROM; no edema Psych Mental Status: mental status grossly normal Speech and movement: Normal speech and movement present Affect: normal affect Attitude: cooperative Thought process: Normal thought process present Coding Level of Care Code Est Pt Level 4 (36380) Diagnoses Recurrent incisional hernia K43.2 Mixed hyperlipidemia E78.2 Hyperlipidemia type: mixed hyperlipidemia Essential hypertension I10 Hypertension type: essential hypertension Uncomplicated opioid dependence F11.20 Substance use status: uncomplicated Lumbar spondylosis with myelopathy M47.16 Additional Codes PHQ-9 - 82604 - PHQ-9 Billing: Yes ([id number]) EMILY-7 Assessment Billing - EMILY-7 Assessment Tool: EMILY-7 Assessment 03021 ([id number]) Assessment & Plan Assessment & Plan (1) Recurrent incisional hernia: Code(s): K43.2 - Incisional hernia without obstruction or gangrene Category: Medical Plan: Patient was found to have recurrent abdominal hernia. She reports her pain is almost intolerable and she did find that oxycodone was helpful. She again was recently seen [facility] for abdominal pain and diarrhea. She believes her hernias getting larger. CT of abdomen does indeed show incisional hernias. There has not been a surgical option for her due to the complexity of her case. She does have a general business intelligence analyst (Dr. Lord) whom has been trying his best with medications to help slow her GI tract down and reduce her bowel frequency. We did discuss the habit-forming nature and dependency to opiates and she understands and will use oxycodone 10 mg on an as needed basis. HAS A VERY LIMITED QUALITY OF LIFE DUE TO HER CHRONIC ABDOMINAL PAIN RELATED TO HER HERNIAS AND FREQUENCY OF HER BOWEL MOVEMENTS. SHE DOES HAVE HELP AT HOME WELL WITH A PERFORMANCE REPORTER TODAY SHE SIGNED A DRUG CONTRACT--AND WILL USE OXYCODONE 5-10 MG P.R.N. FOR HER PAIN ALONG WITH THE ACETAMINOPHEN 650 MG. (2) HLD (hyperlipidemia): Code(s): E78.5 - Hyperlipidemia, unspecified Category: Medical Qualifiers: Hyperlipidemia type: mixed hyperlipidemia Qualified Code(s): E78.2 - Mixed hyperlipidemia Plan: Patient was thought to have very elevated total cholesterol and LDL at most recent hospitalization. She has not been taking her atorvastatin. Unclear what has happened here though will restart her atorvastatin 20 mg. Goal LDL to be below 100 (3) HTN (hypertension): Code(s): I10 - Essential (primary) hypertension Category: Medical Qualifiers: Hypertension type: essential hypertension Qualified Code(s): I10 - Essential (primary) hypertension Plan: Patient's blood pressure acceptable today in office. Will continue her current dose of antihypertensive medication with goal blood pressure to remain below 140/90. (4) Opiate dependence: Code(s): F11.20 - Opioid dependence, uncomplicated Category: Medical Qualifiers: Substance use status: uncomplicated Qualified Code(s): F11.20 - Opioid dependence, uncomplicated Plan: Today patient sign drug contract in his willing do urine drug screen. (5) Lumbar spondylosis with myelopathy: Code(s): M47.16 - Other spondylosis with myelopathy, lumbar region Category: Medical Plan: PATIENT DOES HAVE LUMBAR DISC DISEASE AND CONTINUES TO USE OF ROLLATOR WALKER FOR ASSISTANCE. SHE IS ASKING FOR AN ELECTRIC SCOOTER OR ELECTRIC WHEELCHAIR SCRIPT TO BE GIVEN TO HER INSURANCE TO HELP HER WITH HER MOBILITY QUALITY OF LIFE. Orders: Orders AMB 12 Panel Urine Drug Screen 12/27/24 F11.20 - Opioid dependence, uncomplicated, Z51.81 - Encounter for therapeutic drug level monitoring Medications: New [Electric scooter] As directed 1 ea 0RF M47.16 - Other spondylosis with myelopathy, lumbar region [Electric wheelchair] As directed 1 ea 0RF M47.16 - Other spondylosis with myelopathy, lumbar region oxycodone 5 mg PO Q6H 14 days PRN 56 tabs 0RF pain (scale score 7-10) K43.2 - Incisional hernia without obstruction or gangrene Changed From loperamide 4 mg PO QID K90.9 - Intestinal malabsorption, unspecified, R19.7 - Diarrhea, unspecified To loperamide 4 mg (2 x 2 mg) PO QID 30 days PRN 240 tabs 2RF loose stool K90.9 - Intestinal malabsorption, unspecified, R19.7 - Diarrhea, unspecified Refilled acetaminophen ER 650 mg PO Q12H 30 days PRN 60 tabs 3RF pain M19.031 - Primary osteoarthritis, right wrist
[2024-12-27 08:37] VITALS: BP 140/64; PULSE 97; TEMP 36.1; O2SAT 94; BMI 40.2
== END 2024-12-27 09:22 | disposition home or self-care (01) ==
PROVIDERS: PCP Internal Medicine; Visit Provider Physician Assistant
DX: K43.2 Incisional hernia without obstruction or gangrene (principal); E78.2 Mixed hyperlipidemia; I10 Essential (primary) hypertension; F11.20 Opioid dependence, uncomplicated; M47.16 Other spondylosis with myelopathy, lumbar region

== ENCOUNTER → 2024-12-27 08:13 | Outpatient (BNVA) | payer OTHER, SELFPAY | PROVIDERS: PCP Internal Medicine; Visit Provider Physician Assistant | DX: K43.2 Incisional hernia without obstruction or gangrene (principal); E78.2 Mixed hyperlipidemia; I10 Essential (primary) hypertension; F11.20 Opioid dependence, uncomplicated; M47.16 Other spondylosis with myelopathy, lumbar region | CPT/HCPCS: 96127; 99212 ==

== ENCOUNTER 2024-12-28 10:14 | Outpatient (AMB) | payer OTHER, SELFPAY ==
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
--- OUTSIDE RECORDS SUMMARY | 2024-12-28 12:23 | XMS_ITS | Encounter Summary ---
[facility] Address [address] [place] [address] Care Team Providers Care Local Combination Truck Driver Name Role Phone Jigar Patel Primary Care Provider Reason for Visit * Reason Onset Date Comments Provider Call Back 12/01/2024 Encounter Details Date Type Department Care Team (Late st Contact Info) Description 12/01/2024 Telephone Gastroenterology - [address] [place] [phone] Garrett Rico MD [address] [place] [address] Provider Call Back Social History Tobacco Use Types Packs/Day Years Used Date Smoking Tobacco: Some Days Cigarettes 0.2 46.7 Started: 04/13/1978 Smokeless Tobacco: Never Alcohol [...] DR RICO- PER PT TO GO TO [facility] , THEY HOPEFULLY WILL GET HER [...] her up with Dr. Yo Patten at [facility] * Jerri Marsh MA - 12/01/2024 9:02 AM EST Pt wants a call back to discuss her painful hernia documented in this encounter Plan of Treatment Upcoming Encounters Date Type Department Care Team (Late st Contact Info) Description 01/07/2025 10:10 AM EDT Office Visit Gastroenterology - [address] [place] [phone] Garrett Rico MD [address] [place] [address] documented as of this encounter Visit Diagnoses Not on filedocumented in this encounter Care Teams Local Combination Truck Driver Relationship Specialty Start Date End Date Jigar Patel PA PCP - General 02/26/23 documented as of this encounter
--- OUTSIDE RECORDS SUMMARY | 2024-12-28 12:23 | XMS_ITS | Clinical Summary ---
Author Organization [facility] [place] 299 [facility] Address [address] [place] [address] Phone Care Team Providers Care Financial Brokers Name Role Phone Jigar Patel Primary Care [...] (PROTONIX) 40 mg EC tablet 4 Active dkremz-roxhfqan-cghg ase (Creon) 36,000-114,000- 180,000 unit capsule,delayed release(DR/EC)Indica [...] KALE (obstructive sleep apnea) 01/11/2019 Overview (08/31/2024): [facility] Home Polysomnogram: Date 02/04/2019; Wt 235#; VICKY [...] Team Description 12/01/2024 Telephone Gastroenterology - [address] [phone] Garrett Shabazz MD Provider Call Back 11/08/2024 8:39 AM EST Anesthesia Event [facility] [address] [place] [address] Monica Hernandez MD 11/08/2024 7:28 AM EST - 11/08/2024 11:59 PM EST Hospital Encounter [facility] [address] [place] [address] Garrett Shabazz MD Freeman, Katharine O, MD Abrokwah, Foster Myles G, CRNA History of colon polyps Discharge Disposition: Home or Self Care 10/26/2024 2:30 PM EST Office Visit Gastroenterology - [address] [place] [phone] Garrett Shabazz MD Functional diarrhea (Primary Dx); Incisional hernia, without obstruction or gangrene 10/26/2024 Telephone Gastroenterology - [address] [phone] Deny Hauser [place] 10/22/2024 Telephone Gastroenterology - [address] [phone] Garrett Shabazz MD 10/21/2024 6:34 PM EST - 10/22/2024 4:43 PM EST Hospital Encounter [facility] [address] [place] [address] Kiran Collins MD Cheng, Ting Ho Danny, DO Fiallo, Viriato M, MD Generalized abdominal pain (Primary Dx) Discharge Disposition: Home or Self Care 10/21/2024 Telephone Gastroenterology - [address] [place] [phone] Garrett Shabazz MD 10/15/2024 Telephone Gastroenterology - [address] [place] [phone] Garrett Shabazz MD 10/14/2024 Telephone Gastroenterology - [address] [address] Garrett Shabazz MD 10/11/2024 Telephone Gastroenterology - [address] [address] Jerri Marsh [place] 10/11/2024 Telephone Gastroenterology - [address] [address] Garrett Shabazz MD 10/05/2024 11:15 AM EST Office Visit Gastroenterology - [address] [address] Garrett Shabazz MD Diarrhea, unspecified type (Primary Dx); Incisional hernia, without obstruction or gangrene; Diarrhea following gastrointestinal surgery from Last 3 Months Surgical History Surgery Date Site/Laterality Comments HERNIA REPAIR PROCEDURE: [place] REPAIR FIRST ABDOMINAL WALL HERNIA OTHER SURGICAL [...] 0.2 46.7 Started: 04/13/1978 Smokeless Tobacco: Never Tobacco [...] Office Visit Gastroenterology - [address] [facility] [address] [place] [phone] Garrett Shabazz MD 299 [facility] [address] [place] [address] Health Maintenance Due Date Last Done Comments [...] Maintenance Results * COLONOSCOPY Anesthesia - MAC; [facility] END[facility] (11/08/2024 8:55 AM [...] 8:[address] [facility] Patient Name: Yu Morgan Procedure Date: [...] Procedure Code(s): ? --- Professional --- ? 23894, Colonoscopy, flexible; with biopsy, single or ? multiple CPT copyright 2020 [employer]. All rights reserved. The codes documented in this report are preliminary and upon spinning machine tender review may be revised to meet current compliance requirements. MD Garrett Do MD 11/08/2024 8:59:29 AM This report has been signed electronically.Garrett Shabazz MD Number of Addenda: 0 Note Initiated On: 11/08/2024 8:40 AM Scope In: Scope Out: ? Endoscopy Department at [facility] - [address] [place] [address], ? [place] [address] Procedure Note Garrett Shabazz MD - 11/08/2024 [facility] Patient Name: Yu Morgan Procedure Date: [...] Findings: There was evidence of a prior ect-rg-iewglfc-colonic anastomosis in the sigmoid colon. This was patentand was characterized by healthy appearing mucosa. The anastomosis was traversed. The exam was otherwise without abnormality ondirect and retroflexion views. Clara-anal excoriationsnoted. Biopsies were taken with a cold forceps in therectum, in the sigmoid colon and in the distal ileum for histology. Procedure Code(s): --- Professional --- 58878, Colonoscopy, flexible; with biopsy, singleor multiple CPT copyright 2020 [employer]. All rights reserved. The codes documented in this report are preliminary and upon spinning machine tender reviewmay be revised to meet current compliance requirements. MD Garrett Do MD 11/08/2024 8:59:29 AM This report has been signed electronically.Garrett Shabazz MD Number of Addenda: 0 Note Initiated On: 11/08/2024 8:40 AM Scope In: Scope Out: Endoscopy Department at [facility] - [address] [place] [phone] IMPRESSION: - Patent end-to-end ileo-colonic anastomosis, characterized [...] diagnostic histopathologic change. 11/09/2024 8:26 AM EST [facility] Gross Description A. [...] survive processing. dvb/DG 11/09/2024 8:26 AM EST [facility] Disclaimer Unless otherwise specified, all tissue is 10% NB formalin fixed and paraffin embedded. 11/09/2024 8:26 AM [facility] Tissue Colon structure / Unknown 11/08/2024 8:48 AM EST 11/08/2024 11:13 AM EST Tissue specimen (specimen) Colon structure / Unknown 11/08/2024 8:49 AM EST 11/08/2024 11:13 AM EST Garrett Shabazz MD LAB PATHOLOGY ORDERABLES Final Result [facility] [address] [place] [address], [place] [phone] * Lactate (10/22/2024 1:10 AM EST) Lactate 1.8 0.4 - 2.0 mmol/L LAB CHEMISTRY METHOD 10/22/2024 1:38 AM EST [facility] Blood Venous blood specimen / Unknown Venipuncture / Unknown 10/22/2024 1:10 AM EST 10/22/2024 1:15 AM EST Lobito CORONADO LAB BLOOD ORDERABLES Mignon l Result [facility] [address] [place] [address], [place] [phone] * ECG-Outside (10/22/2024) us Provider Onbase ECG [...] K/mcL LAB HEMETOLOGY METHOD 10/21/2024 7:54 PM [facility] RBC 4.10 3.80 - 4.80 M/mcL LAB HEMETOLOGY METHOD 10/21/2024 7:54 PM [facility] Hemoglobin 12.2 11.5 - 16.0 g/dL LAB HEMETOLOGY METHOD 10/21/2024 7:54 PM [facility] Hematocrit 36.8 35.0 - 47.0 % LAB HEMETOLOGY METHOD 10/21/2024 7:54 PM [facility] MCV 90.4 79.0 - 98.0 FL LAB HEMETOLOGY METHOD 10/21/2024 7:54 PM [facility] MCH 30.0 27.0 - 32.0 pcg LAB HEMETOLOGY METHOD 10/21/2024 7:54 PM [facility] MCHC 33.2 32.0 - 37.0 g/dL LAB HEMETOLOGY METHOD 10/21/2024 7:54 PM [facility] RDW 13.4 11.0 - 15.0 % LAB HEMETOLOGY METHOD 10/21/2024 7:54 PM [facility] Platelets 274 130 - 400 K/mcL LAB HEMETOLOGY METHOD 10/21/2024 7:54 PM [facility] MPV 9.9 7.0 - 11.0 FL LAB HEMETOLOGY METHOD 10/21/2024 7:54 PM [facility] NRBC 0.0 <1.0 % LAB HEMETOLOGY METHOD 10/21/2024 7:54 PM [facility] NRBC Absolute 0.00 <0.10 K/mcL LAB HEMETOLOGY METHOD 10/21/2024 7:54 PM [facility] Neutrophils Relative 48.0 % LAB HEMETOLOGY METHOD 10/21/2024 7:54 PM [facility] Lymphocytes Relative 37.3 % LAB HEMETOLOGY METHOD 10/21/2024 7:54 PM [facility] Monocytes Relative 10.8 % LAB HEMETOLOGY METHOD 10/21/2024 7:54 PM [facility] Eosinophils Relative 2.8 % LAB HEMETOLOGY METHOD 10/21/2024 7:54 PM [facility] Basophils Relative 0.8 % LAB HEMETOLOGY METHOD 10/21/2024 7:54 PM [facility] Immature Granulocytes Relative 0.3 % LAB HEMETOLOGY METHOD 10/21/2024 7:54 PM [facility] Neutrophils Absolute 3.67 1.50 - 7.00 K/mcL LAB HEMETOLOGY METHOD 10/21/2024 7:54 PM [facility] Lymphocytes Absolute 2.84 1.00 - 5.00 K/mcL LAB HEMETOLOGY METHOD 10/21/2024 7:54 PM [facility] Monocytes Absolute 0.82 0.20 - 1.00 K/mcL LAB HEMETOLOGY METHOD 10/21/2024 7:54 PM EST [facility] Eosinophils Absolute 0.21 0.00 - 0.50 K/mcL LAB HEMETOLOGY METHOD 10/21/2024 7:54 PM EST [facility] Basophils Absolute 0.06 0.00 - 0.20 K/mcL LAB HEMETOLOGY METHOD 10/21/2024 7:54 PM [facility] Immature Granulocytes Absolute 0.02 0.00 - 0.03 K/[facility] LAB HEMETOLOGY METHOD 10/21/2024 7:54 PM [facility] Blood Venous blood specimen / Unknown Venipuncture / Unknown 10/21/2024 6:54 PM EST 10/21/2024 7:49 PM EST us Kiran Collins MD LAB BLOOD ORDERABLES Final Resu lt [facility] [address] [place] [address], * (ABNORMAL) Comprehensive metabolic panel (10/21/2024 6:54 PM EST) Sodium 135 133 - 145 mmol/L LAB CHEMISTRY METHOD 10/21/2024 8:27 PM [facility] Potassium 3.6 3.5 - 5.5 mmol/L LAB CHEMISTRY METHOD 10/21/2024 8:27 PM [facility] Comment:Hemolysis present Chloride 101 96 - 110 mmol/L LAB CHEMISTRY METHOD 10/21/2024 8:27 PM [facility] CO2 25 21 - 32 mmol/L LAB CHEMISTRY METHOD 10/21/2024 8:27 PM [facility] Anion Gap 9 3 - 11 LAB CHEMISTRY METHOD 10/21/2024 8:27 PM [facility] Glucose 129(H) 70 - 100 mg/dL LAB CHEMISTRY METHOD 10/21/2024 8:27 PM [facility] BUN 6 5 - 25 mg/dL LAB CHEMISTRY METHOD 10/21/2024 8:27 PM [facility] Creatinine 0.85 0.50 - 1.10 mg/dL LAB CHEMISTRY METHOD 10/21/2024 8:27 PM [facility] eGFR 78 >=60 mL/min/1. 73m2 LAB CHEMISTRY METHOD 10/21/2024 8:27 PM [facility] Comment:Calculation based on the??Chronic Kidney Disease Epidemiology Collaboration (CKD-EPI) equation refit??without adjustment for race. BUN/Creatinine Ratio 7.1 LAB CHEMISTRY METHOD 10/21/2024 8:27 PM [facility] Calcium 8.6 8.5 - 10.5 mg/dL LAB CHEMISTRY METHOD 10/21/2024 8:27 PM [facility] AST (SGOT) 20 10 - 42 unit/L LAB CHEMISTRY METHOD 10/21/2024 8:27 PM [facility] Comment:Hemolysis present ALT (SGPT) 26 10 - 60 unit/L LAB CHEMISTRY METHOD 10/21/2024 8:27 PM [facility] Alkaline Phosphatase 122(H) 42 - 121 unit/L LAB CHEMISTRY METHOD 10/21/2024 8:27 PM [facility] Total Protein 6.3 6.0 - 8.0 g/dL LAB CHEMISTRY METHOD 10/21/2024 8:27 PM [facility] Albumin 3.6 3.2 - 5.0 g/dL LAB CHEMISTRY METHOD 10/21/2024 8:27 PM [facility] Total Bilirubin 0.2 0.0 - 1.4 mg/dL LAB CHEMISTRY METHOD 10/21/2024 8:27 PM [facility] Blood Venous blood specimen / Unknown Venipuncture / Unknown 10/21/2024 6:54 PM EST 10/21/2024 7:49 PM EST us Kiran Collins MD LAB BLOOD ORDERABLES Final Resu lt [facility] [address] [place] [address], * (ABNORMAL) Pancreatic elastase 1 (10/07/2024 9:54 AM EST) Pancreatic Elastase 1 35.2(L) >200 mcg/g 10/11/2024 1:[address] [facility] Comment: Adult and Pediatric Referance Ranges for Pancreatic Elastase-1: Normal: ? >200 mcg/g Moderate Pancreatic Insufficiency: ?100-200 mcg/g Severe Pancreatic Insufficiency: ?<100 mcg/g Test performed at [facility], [address] [place], [place] ??[address] ? [phone] Lacey Cabrera MD, PhD - Back Shoe Worker Stool Rectum structure / Unknown Non-blood Collection / Unknown 10/07/2024 9:54 AM EST 10/07/2024 11:36 AM EST Garrett Shabazz MD LAB BODY FLUIDS AND STOOLS ORDE RABLES Final Result [facility] [address] [place] [address] * Tissue transglutaminase, IgA (10/05/2024 11:18 AM EST) Tissue Transglutaminase Ab, IgA Quant 1 <4 unit/mL LAB CHEMISTRY METHOD 10/06/2024 1:33 PM EST [facility] Tissue Transglutaminase Ab, IgA Negative Negative LAB CHEMISTRY METHOD 10/06/2024 1:33 PM EST [facility] Blood Venous blood specimen / Unknown Venipuncture / Unknown 10/05/2024 11:18 AM EST 10/05/2024 12:02 PM EST Garrett Shabazz MD LAB BLOOD ORDERABLES Final Resu lt Performing Organization Address [facility]/ZIP Co de Phone Number [facility] [address] [place] [address], [place] [phone] * Immunoglobulin IgA (10/05/2024 11:18 AM EST) [facility] IgA 165 61 - 348 mg/dL LAB CHEMISTRY METHOD 10/05/2024 12:54 PM EST [facility] Blood Venous blood specimen / Unknown Venipuncture / Unknown 10/05/2024 11:18 AM EST 10/05/2024 12:03 PM EST Garrett Shabazz MD LAB BLOOD ORDERABLES Final Resu lt Performing Organization Address [facility] Co de Phone Number [facility] [address] [place] [address], [place] [phone] * Lipid panel (10/01/2023) [facility] LDL/HDL Ratio 0 Comment:No Interpretation, A bstracted Triglycerides 0 mg/dL Comment:No Interpretation, A bstracted Cholesterol 0 mg/dL Comment:No Interpretation, A bstracted HDL 0 mg/dL Comment:No Interpretation, A bstracted LDL Cholesterol 0 mg/dL Comment:No Interpretation, A bstracted Blood Venous blood specimen / Unknown [facility] Provider LAB BLOOD ORDERABLES Mignon l Result from Last 3 Months or Most Recently Relevant to Health [place] [address] [facility] MEDICARE Member Subscriber Plan / Payer (Ef fective 2019-Present) Name:Yu Morgan Relation to Subscriber:Self Name:Yu Morgan Payer ID:[id number] Group ID:[id number] Type:Not on file Address: [facility] [address] [address] Advance Directives Documents on File Type Date Recorded Patient Movie Editor Expl anation Health Care Decision (hx) 11/03/2022 [...] currently active code status orders. Care Teams Financial Brokers Relationship Specialty Start Date End Date Jigar Patel PA PCP - General 02/26/23
--- OUTSIDE RECORDS SUMMARY | 2024-12-28 12:23 | XMS_ITS | Data Portability ---
Author Organization [email or web address], [place] [employer] Address [address] [place] [address] Care Team Providers Care Fisher Eel Spear Name Role Phone [facility] Referring Provider [phone] Assessment Encounter Date Assessment Date Assessment LastModified by Organization Details LastModified Time 11/29/2022 11/29/2022 I have reviewed and agree with the assessment and plan as documented by the rn care manager. I provided real-time medical direction for this [...] assessment and plan as documented by the rn care manager. I provided real time medical direction for this encounter and was immediately available to provide additional phone based assistance as needed. History as noted by rn care manager. Pt with history of multiple abdominal/bowel surgeries including prior colostomy reversal. Pt has known ventral hernia and has been evaluated at [facility] for surgical repair of the hernia. [...] since she was hoping to get to [facility] tomorrow, but is now stating that she is willing to go to the [facility] ED (since they are part of [facility]) for evaluation and possible transfer to [facility] for surgical evaluation. Emblem [employer] helps to arrange ambulance transport to the [facility] ED. I call an expect to the [facility] ED admission discharge rn as well. [email or web address] Not available 09/02/2023 17:22:49 Plan of Treatment Reminders Order Date Submit Date Provider Last Modified By Organization Details Last Modified Time Details Appointments None recorded. Lab None recorded. Referral None recorded. Procedures None recorded. Surgeries None recorded. Imaging None recorded. Medication Orders Moisture Barrier Ointment 0.44 %-20.6 % 2022 023 [facility] [facility], [place], [address], 3 12:47:52 Patient TargetsNo targets recorded. Patient InstructionsNo instructions recorded. Reason for Referral None Reported. Medical Equipment None Reported. Allergies Allergen ID Allergen Name Allergen Category Reaction Reaction Severity Criticality Documentation Date Start Date Code Code System Note Provider Name and Address Organization Details Recorded Time 8461 Product containin g penicilli n (product) medicatio n Not available Not available Not available 08/24/2024 45097 8001 SNOMED Not Available [employer] - production [...] Details Last Updated DateTime 3 16 /min 57898.6 8 g 98 % 98 % 79 /min 144 mm[Hg] 90 mm[Hg] Not Available [employer] [facility] [employer] - production 3 13:06:43 Date Recorded Heart rate Oxygen saturation Oxygen saturation in Arterial blood by Pulse oximetry Body temperature Respiratory rate Systolic blood pressure Diastolic blood pressure Provider Name and Address Organization Details Last Updated DateTime 3 85 /min 96 % 96 % 98.4 [degF] 16 /min 154 mm[Hg] 83 mm[Hg] Not Available [employer] | [employer] - production 3 20:27:00 Date Recorded Respiratory rate Heart rate Oxygen saturation Oxygen saturation in Arterial blood by Pulse oximetry Body temperature Systolic blood pressure Diastolic blood pressure Provider Name and Address Organization Details Last Updated DateTime 3 18 /min 96 /min 95 % 95 % 98.7 [degF] 130 mm[Hg] 78 mm[Hg] Not Available [employer] production 3 15:16:46 Date Recorded Respiratory rate Oxygen saturation Oxygen saturation in Arterial blood by Pulse oximetry Body temperature Heart rate Systolic blood pressure Diastolic blood pressure Provider Name and Address Organization Details Last Updated DateTime 3 16 /min 94 % 94 % 98.5 [degF] 83 /min 152 mm[Hg] 92 mm[Hg] Not Available [employer] | [employer] - production 3 12:24:28 Social History None [...] Note [id number] Shelli Velez MD Main - [address] [phone] 11/29/2022 12:24:25 12/02/2022 12:22:07 Epigastric pain 03296381 R10.13 [id number] [facility] [address] [place] [phone] 04/25/2023 13:06:41 04/29/2023 10:15:27 Carpal tunnel syndrome [id number] G56.01 This 63-year-ol d female with previous right carpal tunnel surgery has a history of right wrist and hand pain that has been worse over the past week. The pain hasn't responded to OTC meds. I ordered Toradol 30 mg IM. She will follow-up with her regular physicians . The patient agreed with this plan. [id number] Chema Quezada MD Main - [address] [phone] 04/26/2023 20:26:56 04/28/2023 10:33:04 Pain in limb [id number] M79.609 This 63-year-ol d female continues to [...] option. The patient agreed with this plan. [id number] Christoph Blood MD Main - [facility] [address] [place] [phone] 09/02/2023 15:16:43 09/02/2023 22:32:50 Abdominal pain [id number] R10.9 Health Concerns Section Related Observation LastModified by Organization Detai ls LastModified Time None Recorded Concern Status LastModified by Organization Details LastModified Time None Recorded Advance Directives Directive None Recorded Payers Encounter Date Sequence Insurance Name Policy Number Policy Mcguire Covered Member ID Mcguire Member ID Guarantor Name 11/29/2022 [facility] PRIOR TO 2023 - DUAL ELIGIBLE (MEDICARE REPLACEMENT/ADV ANTAGE - HMO) Yu Morgan [id number] Yu Morgan 04/25/2023 [facility] - [facility] ON OR AFTER 2023 - DUAL ELIGIBLE - SENIOR LIVING OPTIONS AND ONE CARE (MEDICARE REPLACEMENT/ADV ANTAGE - HMO) Yu Morgan [id number] Yu Morgan 04/26/2023 1 [facility] - [facility] ON OR AFTER 2023 - DUAL ELIGIBLE - SENIOR LIVING OPTIONS AND ONE CARE (MEDICARE REPLACEMENT/ADV ANTAGE - HMO) Yu Morgan [id number] Yu Morgan 09/02/2023 1 [facility] - DOS ON OR AFTER 2023 - DUAL ELIGIBLE - SENIOR LIVING OPTIONS AND ONE CARE (MEDICARE REPLACEMENT/ADV ANTAGE - HMO) Yu Morgan [id number] Yu Morgan Notes Date Note Type Note [...] a referral, verified via . Members community SEATING CAPTAIN nurse present during time of triage. Member [...] evaluated in home. Shelli Velez MD [address] [facility],[address], [place], [phone], [employer] 11/29/2022 12:46:44 04/25/2023 text/html HPI: Yu states [...] .................. .................. .................. .................. .................. .................. ............... Emblem [employer] Note From Dave Mai: pt requesting visit [...] has good pulses and sensation. VM contacted [facility] ordered 30mg of Toradol IM . Toradol given in left deltoid . Pt educated on s/s warranting a 911 call/trip to the hospital. Pt advised to keep F/U appt tomorrow with her doctor. [employer] Allergies: Penicillin, Aspirin .................. .................. .................. .................. .................. .................. .................. ............... Disposition: Fulfilled Chema Quezada MD [address] [facility],[address], [place], [phone], [email or web address] 04/28/2023 17:27:10 04/26/2023 text/html HPI: Member with [...] DId not further info,nessa Quezada MD [address], [place], [address], [employer] 04/26/2023 20:32:11 09/02/2023 text/html This was a supervised home visit with rn care manager Brenda Newton. HPI: Member reports that she is experiencing abdominal and hernia pain today. Vomiting since this morning. Sweating. Member has hx of hernia pain and is trying to go to [facility] for a urgent medical visit tomorrow. [...] .................. .................. .................. .................. .................. .................. ............... [employer] Note From Brenda Newton: Upon arrival, pt was lying in bed on her right side. A/O x4 pt color is pale/warm/dry. Pt is not in any immediate respiratory distress. Pt stated that she has extensive abdominal issues and is supposed to have surgery in [place]. Pt states she has been in 10/10 pain x 2-3 days with nausea, vomiting, and bloody stools. Pt states she wants to go to the ER but insists she gets to [facility] because they are the only ones who will transfer her to [place]. Vitals as noted. Hernia can be visualized in the abdomen. Abdomen is non rigid but extremely tender to the touch. Pt denies any CP, dizziness and/or SOB. [facility] contacted and agrees pt needs to be evaluated in ER. Pt states [facility] will find someone to [facility] and once lifeline is activated, rep stated she told responding unit that pt must be taken to [facility]. EMS BLS unit arrives on scene and states they cannot transport outside their area. Dispatch is notified and asked if [facility] can transport pt to [facility]. [facility] arrives on scene to transport pt and [facility] is cleared. It is noted that pt stated she was at [facility] earlier today for blood work. Pt stated she was brought by transport but they will not do same day transports. [facility] contacted [facility] to alert of pt? s arrival. Call is then cleared. [employer] Allergies: Penicillin, Aspirin .................. .................. .................. .................. .................. .................. .................. ............... Disposition: Fulfilled Christoph Blood MD [address] [facility],[address], [place], [address], [email or web address] 09/02/2023 17:23:01 OBGyn Episode No OBEpisode recorded."
== END 2024-12-28 10:31 | disposition home or self-care (01) ==
LOC: HO.HOP 10:14
PROVIDERS: PCP Internal Medicine; Visit Provider Clinical Nurse Specialist Psychiatric/Mental Health
DX: F33.9 Major depressive disorder, recurrent, unspecified (principal); F60.3 Borderline personality disorder; F41.1 Generalized anxiety disorder; F41.0 Panic disorder [episodic paroxysmal anxiety]
CPT/HCPCS: 99213

== ENCOUNTER → 2024-12-28 10:14 | Outpatient (BNVA) | payer OTHER, SELFPAY | PROVIDERS: PCP Internal Medicine; Visit Provider Clinical Nurse Specialist Psychiatric/Mental Health | DX: F33.9 Major depressive disorder, recurrent, unspecified (principal); F60.3 Borderline personality disorder; F41.1 Generalized anxiety disorder; F41.0 Panic disorder [episodic paroxysmal anxiety] | CPT/HCPCS: 99212 ==

== ENCOUNTER 2025-01-07 11:08 | Outpatient (REF) | payer OTHER, SELFPAY ==
[2025-01-07 12:25] LABS: Amphetamine Screen Urine Not Detected (Not Detect); Barbiturates, Urine Not Detected (Not Detect); Benzodiazepines Screen Urine POSITIVE (Not Detect); Buprenorphine Scr Not Detected (Not Detect); Cannabinoid Screen Urine Not Detected (Not Detect); Cocaine Screen Urine Not Detected (Not Detect); Fentanyl, urine Not Detected (Not Detect); Methadone Screen, Urine Not Detected (Not Detect); Opiate Screen Urine Not Detected (Not Detect); Oxycodone Screen Urine Not Detected (Not Detect); Phencyclidine Screen Urine Not Detected (Not Detect)
--- OUTSIDE RECORDS SUMMARY | 2025-01-07 12:50 | XMS_ITS | Encounter Summary ---
Author Organization [facility] Address [address] [place] [address] Care Team Providers Care Corrections Specialist Name Role Phone Jigar Patel Primary Care Provider Reason for Visit * Reason Onset Date Comments Provider Call Back 12/01/2024 Encounter Details Date Type Department Care Team (Late st Contact Info) Description 12/01/2024 Telephone Gastroenterology - [address] [place] [phone] Garrett Rico MD [address] [place] [address] Provider Call Back Social History Tobacco Use [...] DR RICO- PER PT TO GO TO [facility] , THEY HOPEFULLY WILL GET HER [...] her up with Dr. Yo Patten at [facility] * Jerri Marsh MA - 12/01/2024 9:02 AM EST Pt wants a call back to discuss her painful hernia documented in this encounter Plan of Treatment Upcoming Encounters Date Type Department Care Team (Late st Contact Info) Description 01/19/2025 11:30 AM EDT Office Visit Gastroenterology - [address] [place] [phone] Garrett Rico MD [address] [place] [address] documented as of this encounter Visit Diagnoses Not on filedocumented in this encounter Care Teams Corrections Specialist Relationship Specialty Start Date End Date Jigar Patel PA PCP - General 02/26/23 documented as of this encounter
--- OUTSIDE RECORDS SUMMARY | 2025-01-07 12:50 | XMS_ITS | Clinical Summary ---
Author Organization [facility] [address] [facility] Address [address] [place] [address] Phone Care Team Providers Care Stave Planer Tender Name Role Phone Jigar Patel Primary Care Provider [phone] Allergies Active Allergy Reactions Criticality Noted Date [...] (PROTONIX) 40 mg EC tablet 4 Active mtpyaf-rfezfpba-thij ase (Creon) 36,000-114,000- 180,000 unit capsule,delayed release(DR/EC)Indica [...] KALE (obstructive sleep apnea) 01/11/2019 Overview (08/31/2024): [facility] Home Polysomnogram: Date 02/04/2019; Wt [...] Team Description 12/01/2024 Telephone Gastroenterology - [address] [phone] Garrett Shabazz MD Provider Call Back 11/08/2024 8:39 AM EST Anesthesia Event [facility] Endoscopy [address] [place] [address] Monica Hernandez MD 11/08/2024 7:28 AM EST - 11/08/2024 11:59 PM EST Hospital Encounter [facility] Endoscopy [address] [place] [phone] Garrett Shabazz MD Freeman, Katharine O, MD Abrokwah, Foster Myles G, CRNA History of colon polyps Discharge Disposition: Home or Self Care 10/26/2024 2:30 PM EST Office Visit Gastroenterology - [address] [place] [phone] Garrett Shabazz MD Functional diarrhea (Primary Dx); Incisional hernia, without obstruction or gangrene 10/26/2024 Telephone Gastroenterology - [address] [phone] Deny Hauser [place] 10/22/2024 Telephone Gastroenterology - [address] [phone] Garrett Shabazz MD 10/21/2024 6:34 PM EST - 10/22/2024 4:43 PM EST Hospital Encounter [facility] Medical Surgical Unit [address] [place] [address] Kiran Collins MD Cheng, Ting Ho Danny, DO Fiallo, Viriato M, MD Generalized abdominal pain (Primary Dx) Discharge Disposition: Home or Self Care 10/21/2024 Telephone Gastroenterology - [address] [place] [phone] Garrett Shabazz MD 10/15/2024 Telephone Gastroenterology - [address] [place] [phone] Garrett Shabazz MD 10/14/2024 Telephone Gastroenterology - [address] [place] [phone] Garrett Shabazz MD 10/11/2024 Telephone Gastroenterology - [address] [place] [phone] Jerri Marsh [place] 10/11/2024 Telephone Gastroenterology - [address] [place] [phone] Garrett Shabazz MD from Last 3 Months Surgical History Surgery Date Site/Laterality Comments HERNIA REPAIR PROCEDURE: MO REPAIR FIRST ABDOMINAL WALL HERNIA OTHER SURGICAL [...] Office Visit Gastroenterology - [address] [facility] [address] [place] [phone] Garrett Shabazz MD [address] [facility] [address] [place] [phone] Health Maintenance Due Date Last Done Comments [...] 09/24/2021, 01/11/2021, 12/01/2020 Influenza Vaccine (#1) 2024 0, 07/12/2011, 08/07/2010, Additional history exists Hypertension/CHF/CAD Annual [...] AND DIFFERENTIAL STAT 10/21/2024 6:54 PM EST LIPID PANEL Routine 10/01/2023 from Last 3 Months or Most Recently Relevant to Health Maintenance Results * COLONOSCOPY Anesthesia - MAC; [facility] ENDOSCOPY (11/08/2024 8:55 AM [...] results. Narrative 11/08/2024 8:59 AM EST [facility] GI Patient Name: Yu Morgan [...] Procedure Code(s): ? --- Professional --- ? 41760, Colonoscopy, flexible; with biopsy, single or ? multiple CPT copyright 2020 [employer]. All rights reserved. The codes documented in this report are preliminary and upon summer counselor review may be revised to meet current compliance requirements. MD Garrett Do MD 11/08/2024 8:59:29 AM This report has been signed electronically.Garrett Shabazz MD Number of Addenda: 0 Note Initiated On: 11/08/2024 8:40 AM Scope In: Scope Out: ? Endoscopy Department at [facility] - [address] [place] [address], ? [place] [address] Procedure Note Garrett Shabazz MD - 11/08/2024 [facility] GI Patient Name: Yu Morgan [...] Findings: There was evidence of a prior bza-pt-pfqavxp-colonic anastomosis in the sigmoid colon. This was patentand was characterized by healthy appearing mucosa. The anastomosis was traversed. The exam was otherwise without abnormality ondirect and retroflexion views. Clara-anal excoriationsnoted. Biopsies were taken with a cold forceps in therectum, in the sigmoid colon and in the distal ileum for histology. Procedure Code(s): --- Professional --- 32124, Colonoscopy, flexible; with biopsy, singleor multiple CPT copyright 2020 [employer]. All rights reserved. The codes documented in this report are preliminary and upon summer counselor reviewmay be revised to meet current compliance requirements. MD Garrett Do MD 11/08/2024 8:59:29 AM This report has been signed electronically.Garrett Shabazz MD Number of Addenda: 0 Note Initiated On: 11/08/2024 8:40 AM Scope In: Scope Out: Endoscopy Department at [facility] - [address] [place] [phone] IMPRESSION: - Patent end-to-end ileo-colonic anastomosis, characterized [...] Await pathology results. Garrett Shabazz MD GI~PROCEDURE ORDERABLES Final R esult * Tissue exam (11/08/2024 8:48 AM EST) Final Diagnosis A. Terminal ileum, biopsy: Small bowel mucosa with occasional reactive lymphoid aggregates; otherwise without diagnostic histopathologic change. B. Distal colon, biopsy: Colonic mucosa with surface reactive changes; otherwise without diagnostic histopathologic change. 11/09/2024 8:26 AM [facility] Gross Description A. Colon, biopsies of [...] not survive processing. dvb/DG 11/09/2024 8:26 AM [facility] Disclaimer Unless otherwise specified, all tissue is 10% NB formalin fixed and paraffin embedded. 11/09/2024 8:26 AM [facility] Tissue Colon structure / Unknown 11/08/2024 8:48 AM EST 11/08/2024 11:13 AM EST Tissue specimen (specimen) Colon structure / Unknown 11/08/2024 8:49 AM EST 11/08/2024 11:13 AM EST Garrett Shabazz MD LAB PATHOLOGY ORDERABLES Final Result Performing Organization Address [facility]/ZIP Co de Phone Number [facility] [address] [place] [address], [place] [phone] * Lactate (10/22/2024 1:10 AM EST) Lactate 1.8 0.4 - 2.0 mmol/L LAB CHEMISTRY METHOD 10/22/2024 1:38 AM EST [facility] Blood Venous blood specimen / Unknown Venipuncture / Unknown 10/22/2024 1:10 AM EST 10/22/2024 1:15 AM EST [facility] LAB BLOOD ORDERABLES Mignon l Result Performing Organization Address City/[facility]/ZIP Co de Phone Number [facility] [address] [place] [address], [place] [phone] * ECG-Outside (10/22/2024) Provider Onbase ECG ORDERABLES Final Result * [...] Parikh MD on 10/21/2024 23:03:[address] PROCEDURES Edited Res ult - Final * CBC auto differential (10/21/2024 6:54 PM EST) [facility] WBC 7.6 4.8 - 10.8 K/mcL LAB HEMETOLOGY METHOD 10/21/2024 7:54 PM EST [facility] RBC 4.10 3.80 - 4.80 M/mcL LAB HEMETOLOGY METHOD 10/21/2024 7:54 PM [facility] Hemoglobin 12.2 11.5 - 16.0 g/dL LAB HEMETOLOGY METHOD 10/21/2024 7:54 PM [facility] Hematocrit 36.8 35.0 - 47.0 % LAB HEMETOLOGY METHOD 10/21/2024 7:54 PM [facility] MCV 90.4 79.0 - 98.0 FL LAB HEMETOLOGY METHOD 10/21/2024 7:54 PM [facility] MCH 30.0 27.0 - 32.0 pcg LAB HEMETOLOGY METHOD 10/21/2024 7:54 PM [facility] MCHC 33.2 32.0 - 37.0 g/dL LAB HEMETOLOGY METHOD 10/21/2024 7:54 PM [facility] RDW 13.4 11.0 - 15.0 % LAB HEMETOLOGY METHOD 10/21/2024 7:54 PM [facility] Platelets 274 130 - 400 K/mcL LAB HEMETOLOGY METHOD 10/21/2024 7:54 PM [facility] MPV 9.9 7.0 - 11.0 FL LAB HEMETOLOGY METHOD 10/21/2024 7:54 PM [facility] NRBC 0.0 <1.0 % LAB HEMETOLOGY METHOD 10/21/2024 7:54 PM [facility] NRBC Absolute 0.00 <0.10 K/mcL LAB HEMETOLOGY METHOD 10/21/2024 7:54 PM [facility] Neutrophils Relative 48.0 % LAB HEMETOLOGY METHOD 10/21/2024 7:54 PM [facility] Lymphocytes Relative 37.3 % LAB HEMETOLOGY METHOD 10/21/2024 7:54 PM [facility] Monocytes Relative 10.8 % LAB HEMETOLOGY METHOD 10/21/2024 7:54 PM [facility] Eosinophils Relative 2.8 % LAB HEMETOLOGY METHOD 10/21/2024 7:54 PM [facility] Basophils Relative 0.8 % LAB HEMETOLOGY METHOD 10/21/2024 7:54 PM [facility] Immature Granulocytes Relative 0.3 % LAB HEMETOLOGY METHOD 10/21/2024 7:54 PM [facility] Neutrophils Absolute 3.67 1.50 - 7.00 K/mcL LAB HEMETOLOGY METHOD 10/21/2024 7:54 PM [facility] Lymphocytes Absolute 2.84 1.00 - 5.00 K/mcL LAB HEMETOLOGY METHOD 10/21/2024 7:54 PM [facility] Monocytes Absolute 0.82 0.20 - 1.00 K/mcL LAB HEMETOLOGY METHOD 10/21/2024 7:54 PM [facility] Eosinophils Absolute 0.21 0.00 - 0.50 K/mcL LAB HEMETOLOGY METHOD 10/21/2024 7:54 PM [facility] Basophils Absolute 0.06 0.00 - 0.20 K/mcL LAB HEMETOLOGY METHOD 10/21/2024 7:54 PM [facility] Immature Granulocytes Absolute 0.02 0.00 - 0.03 K/mcL LAB HEMETOLOGY METHOD 10/21/2024 7:54 PM [facility] Blood Venous blood specimen / Unknown Venipuncture / Unknown 10/21/2024 6:54 PM EST 10/21/2024 7:49 PM EST us Kiran Collins MD LAB BLOOD ORDERABLES Final Resu lt [facility] [address] [place] [address], [place] [phone] * (ABNORMAL) Comprehensive metabolic panel (10/21/2024 6:54 PM EST) Sodium 135 133 - 145 mmol/L LAB CHEMISTRY METHOD 10/21/2024 8:27 PM [facility] Potassium 3.6 3.5 - 5.5 mmol/L LAB CHEMISTRY METHOD 10/21/2024 8:27 PM [facility] Comment:Hemolysis present Chloride 101 96 - 110 mmol/L LAB CHEMISTRY METHOD 10/21/2024 8:27 PM [facility] CO2 25 21 - 32 mmol/L LAB CHEMISTRY METHOD 10/21/2024 8:27 PM [facility] Anion Gap 9 3 - 11 LAB CHEMISTRY METHOD 10/21/2024 8:27 PM [facility] Glucose 129(H) 70 - 100 mg/dL LAB CHEMISTRY METHOD 10/21/2024 8:27 PM [facility] BUN 6 5 - 25 mg/dL LAB CHEMISTRY METHOD 10/21/2024 8:27 PM [facility] Creatinine 0.85 0.50 - 1.10 mg/dL LAB CHEMISTRY METHOD 10/21/2024 8:27 PM [facility] eGFR 78 >=60 mL/min/1. 73m2 LAB CHEMISTRY METHOD 10/21/2024 8:27 PM [facility] Comment:Calculation based on the??Chronic Kidney Disease Epidemiology Collaboration (CKD-EPI) equation refit??without adjustment for race. BUN/Creatinine Ratio 7.1 LAB CHEMISTRY METHOD 10/21/2024 8:27 PM [facility] Calcium 8.6 8.5 - 10.5 mg/dL LAB CHEMISTRY METHOD 10/21/2024 8:27 PM [facility] AST (SGOT) 20 10 - 42 unit/L LAB CHEMISTRY METHOD 10/21/2024 8:27 PM [facility] Comment:Hemolysis present ALT (SGPT) 26 10 - 60 unit/L LAB CHEMISTRY METHOD 10/21/2024 8:27 PM [facility] Alkaline Phosphatase 122(H) 42 - 121 unit/L LAB CHEMISTRY METHOD 10/21/2024 8:27 PM [facility] Total Protein 6.3 6.0 - 8.0 g/dL LAB CHEMISTRY METHOD 10/21/2024 8:27 PM [facility] Albumin 3.6 3.2 - 5.0 g/dL LAB CHEMISTRY METHOD 10/21/2024 8:27 PM [facility] Total Bilirubin 0.2 0.0 - 1.4 mg/dL LAB CHEMISTRY METHOD 10/21/2024 8:27 PM [facility] Blood Venous blood specimen / Unknown Venipuncture / Unknown 10/21/2024 6:54 PM EST 10/21/2024 7:49 PM EST Kiran Collins MD LAB BLOOD ORDERABLES Final Resu lt [facility] [address] [place] [address], * Lipid panel (10/01/2023) LDL/HDL Ratio 0 Comment:No Interpretation, A bstracted Triglycerides 0 mg/dL Comment:No Interpretation, A bstracted Cholesterol 0 mg/dL Comment:No Interpretation, A bstracted HDL 0 mg/dL Comment:No Interpretation, A bstracted LDL Cholesterol 0 mg/dL Comment:No Interpretation, A bstracted Blood Venous blood specimen / Unknown us Historical Provider LAB BLOOD ORDERABLES Mignon l Result from Last 3 Months or Most Recently Relevant to Health Maintenance Insurance [employer] Member Subscriber Plan / Payer (Ef fective 2019-Present) Name:Yu Relation to Subscriber:Self Name: Yu G Payer ID:[id number] Group ID:[id number] Type:Not on file Address: [place] [address] [place] [id number] Advance Directives Documents on File Type Date Recorded Patient Gear Keeper Expl anation Health Care Decision (hx) 11/03/2022 [...] currently active code status orders. Care Teams Stave Planer Tender Relationship Specialty Start Date End Date Jigar Patel PA PCP - General 02/26/23
--- OUTSIDE RECORDS SUMMARY | 2025-01-07 12:50 | XMS_ITS | Data Portability ---
Author Organization [facility] Address [address] [place] [address] Care Team Providers Care [employer] Specialist Name Role Phone [facility] Referring Provider [phone] Assessment Encounter Date Assessment Date Assessment LastModified by Organization Details LastModified Time 11/29/2022 11/29/2022 I have reviewed and agree with the assessment and plan as documented by the logistics program manager. I provided real-time medical direction for [...] assessment and plan as documented by the logistics program manager. I provided real time medical direction for this encounter and was immediately available to provide additional phone based assistance as needed. History as noted by logistics program manager. Pt with history of multiple abdominal/bowel surgeries including prior colostomy reversal. Pt has known ventral hernia and has been evaluated at [facility] for surgical repair of the hernia. [...] since she was hoping to get to [facility] tomorrow, but is now stating that she is willing to go to the [facility] ED (since they are part of [facility]) for evaluation and possible transfer to [facility] for surgical evaluation. Director Of Personnel helps to arrange ambulance transport to the [facility] ED. I call an expect to the [facility] ED discharge door operator as well. [email or web address] Not available 09/02/2023 17:22:49 Plan of Treatment Reminders Order Date Submit Date Provider Last Modified By Organization Details Last Modified Time Details Appointments None recorded. Lab None recorded. Referral None recorded. Procedures None recorded. Surgeries None recorded. Imaging None recorded. Medication Orders Moisture Barrier Ointment 0.44 %-20.6 % 2022 023 [facility], [address] [facility], [place], [address], 3 12:47:52 Patient TargetsNo targets recorded. Patient InstructionsNo instructions recorded. Reason for Referral None Reported. Medical Equipment None Reported. Allergies Allergen ID Allergen Name Allergen Category Reaction Reaction Severity Criticality Documentation Date Start Date Code Code System Note Provider Name and Address Organization Details Recorded Time 8461 Product containin g penicilli n (product) medicatio n Not available Not available Not available 08/24/2024 30439 8001 SNOMED Not Available [facility] - production [...] Details Last Updated DateTime 3 16 /min 64598.6 8 g 98 % 98 % 79 /min 144 mm[Hg] 90 mm[Hg] Not Available [facility] - production 3 13:06:43 Date Recorded Heart rate Oxygen saturation Oxygen saturation in Arterial blood by Pulse oximetry Body temperature Respiratory rate Systolic blood pressure Diastolic blood pressure Provider Name and Address Organization Details Last Updated DateTime 3 85 /min 96 % 96 % 98.4 [degF] 16 /min 154 mm[Hg] 83 mm[Hg] Not Available [facility] - production 3 20:27:00 Date Recorded Respiratory rate Heart rate Oxygen saturation Oxygen saturation in Arterial blood by Pulse oximetry Body temperature Systolic blood pressure Diastolic blood pressure Provider Name and Address Organization Details Last Updated DateTime 3 18 /min 96 /min 95 % 95 % 98.7 [degF] 130 mm[Hg] 78 mm[Hg] Not Available [facility] production 3 15:16:46 Date Recorded Respiratory rate Oxygen saturation Oxygen saturation in Arterial blood by Pulse oximetry Body temperature Heart rate Systolic blood pressure Diastolic blood pressure Provider Name and Address Organization Details Last Updated DateTime 3 16 /min 94 % 94 % 98.5 [degF] 83 /min 152 mm[Hg] 92 mm[Hg] Not Available [facility] - production 3 12:24:28 Social History None [...] Note [id number] Shelli Velez MD Main - [address] [phone] 11/29/2022 12:24:25 12/02/2022 12:22:07 Epigastric pain 56447680 R10.13 [id number] [facility] [address] [place] [phone] 04/25/2023 13:06:41 04/29/2023 10:15:27 Carpal tunnel syndrome 15743863 G56.01 This 63-year-ol d female with previous right carpal tunnel surgery has a history of right wrist and hand pain that has been worse over the past week. The pain hasn't responded to OTC meds. I ordered Toradol 30 mg IM. She will follow-up with her regular physicians . The patient agreed with this plan. [id number] Chema Quezada MD Main - [address] [phone] 04/26/2023 20:26:56 04/28/2023 10:33:04 Pain in limb 92401180 M79.609 This 63-year-ol d female continues to [...] option. The patient agreed with this plan. [id number] Christoph Blood MD Main - [facility] [address] [place] [phone] 09/02/2023 15:16:43 09/02/2023 22:32:50 Abdominal pain 76971525 R10.9 Health Concerns Section Related Observation LastModified by Organization Detai ls LastModified Time None Recorded Concern Status LastModified by Organization Details LastModified Time None Recorded Advance Directives Directive None Recorded Payers Encounter Date Sequence Insurance Name Policy Number Policy Mcguire Covered Member ID Mcguire Member ID Guarantor Name 11/29/2022 1 [facility] - DOS PRIOR TO 2023 - DUAL ELIGIBLE (MEDICARE REPLACEMENT/ADV ANTAGE - HMO) Yu Morgan [id number] Yu Morgan 04/25/2023 1 [facility] - DOS ON OR AFTER 2023 - DUAL ELIGIBLE - USP OPTIONS AND ONE CARE (MEDICARE REPLACEMENT/ADV ANTAGE - HMO) Yu Morgan [id number] Yu Morgan 04/26/2023 1 [facility] - DOS ON OR AFTER 2023 - DUAL ELIGIBLE - USP OPTIONS AND ONE CARE (MEDICARE REPLACEMENT/ADV ANTAGE - HMO) Yu Morgan [id number] Yu Morgan 09/02/2023 1 [facility] - DOS ON OR AFTER 2023 - DUAL ELIGIBLE - USP OPTIONS AND ONE CARE (MEDICARE REPLACEMENT/ADV ANTAGE - HMO) Yu Morgan [id number] Yu Morgan Notes Date Note Type Note [...] a referral, verified via . Members community [employer] SAL[employer] PERSON nurse present during time of triage. Member [...] in home. Shelli Velez MD [address] [facility],[address], [place], [address], [employer] 11/29/2022 12:46:44 04/25/2023 text/html HPI: Yu states [...] .................. .................. .................. .................. .................. .................. ............... Director Of Personnel Note From Dave Mai: pt requesting visit [...] has good pulses and sensation. VM contacted [facility] ordered 30mg of Toradol IM . Toradol given in left deltoid . Pt educated on s/s warranting a 911 call/trip to the hospital. Pt advised to keep F/U appt tomorrow with her doctor. Director Of Personnel Allergies: Penicillin, Aspirin .................. .................. .................. .................. .................. .................. .................. ............... Disposition: Fulfilled Chema Quezada MD [address] [facility],[address], [place], [phone], [facility] 04/28/2023 17:27:10 04/26/2023 text/html HPI: Member with [...] DId not further info,nessa Quezada MD [address], [place], [address], [employer] 04/26/2023 20:32:11 09/02/2023 text/html This was a supervised home visit with logistics program manager Brenda Newton. HPI: Member reports that she is experiencing abdominal and hernia pain today. Vomiting since this morning. Sweating. Member has hx of hernia pain and is trying to go to [facility] for a urgent medical visit tomorrow. [...] related to her hernia. [facility] for [facility] to be approved for hospital visit tomorrow. Member stated she will call 911 if her symptoms worsen .................. .................. .................. .................. .................. .................. .................. ............... Director Of Personnel Note From Brenda Newton: Upon arrival, pt was lying in bed on her right side. A/O x4 pt color is pale/warm/dry. Pt is not in any immediate respiratory distress. Pt stated that she has extensive abdominal issues and is supposed to have surgery in [place]. Pt states she has been in 10/10 pain x 2-3 days with nausea, vomiting, and bloody stools. Pt states she wants to go to the ER but insists she gets to [facility] because they are the only ones who will transfer her to [place]. Vitals as noted. Hernia can be visualized in the abdomen. Abdomen is non rigid but extremely tender to the touch. Pt denies any CP, dizziness and/or SOB. [facility] contacted and agrees pt needs to be evaluated in ER. Pt states [facility] will find someone to [facility] and once [facility] is activated, rep stated she told responding unit that pt must be taken to [facility]. EMS BLS unit arrives on scene and states they cannot transport outside their area. Dispatch is notified and asked if [facility] can transport pt to [facility]. [place] arrives on scene to transport pt and [facility] EMS is cleared. It is noted that pt stated she was at [facility] earlier today for blood work. Pt stated she was brought by transport but they will not do same day transports. [facility] contacted [facility] to alert of pt? s arrival. Call is then cleared. Director Of Personnel Allergies: Penicillin, Aspirin .................. .................. .................. .................. .................. .................. .................. ............... Disposition: Fulfilled Christoph Blood MD [address] [facility],[address], [place], [phone], [facility] 09/02/2023 17:23:01 OBGyn Episode No OBEpisode recorded.
== END 2025-01-07 11:09 | disposition home or self-care (01) ==
LOC: HO.LAB 11:08
PROVIDERS: Visit Provider Physician Assistant
DX: Z51.81 Encounter for therapeutic drug level monitoring (principal); F11.20 Opioid dependence, uncomplicated
CPT/HCPCS: 80307

== ENCOUNTER 2025-01-31 11:31 | Outpatient (AMB) | payer OTHER, SELFPAY ==
--- OUTSIDE RECORDS SUMMARY | 2025-01-31 13:53 | XMS_ITS | Data Portability ---
Author Organization [facility] Address [address] [place] [address] Care Team Providers Care Corporate Travel Counselor Name Role Phone [facility] Referring Provider [phone] Assessment Encounter Date Assessment Date Assessment LastModified by Organization Details LastModified Time 11/29/2022 11/29/2022 I have reviewed and agree with the assessment and plan as documented by the senior administrative support. I provided real-time medical direction for this [...] assessment and plan as documented by the senior administrative support. I provided real time medical direction for this encounter and was immediately available to provide additional phone based assistance as needed. History as noted by senior administrative support. Pt with history of multiple abdominal/bowel surgeries including prior colostomy reversal. Pt has known ventral hernia and has been evaluated at [facility] for surgical repair of the hernia. [...] since she was hoping to get to [facility] tomorrow, but is now stating that she is willing to go to the [facility] ED (since they are part of [facility]) for evaluation and possible transfer to [facility] for surgical evaluation. Toll Line Repairer helps to arrange ambulance transport to the [facility] ED. I call an expect to the [facility] ED commercial lines assistant as well. [email or web address] Not available 09/02/2023 17:22:49 Plan of Treatment Reminders Order Date Submit Date Provider Last Modified By Organization Details Last Modified Time Details Appointments None recorded. Lab None recorded. Referral None recorded. Procedures None recorded. Surgeries None recorded. Imaging None recorded. Medication Orders Moisture Barrier Ointment 0.44 %-20.6 % 2022 023 [facility] [facility], [place], [address], 3 12:47:52 Patient TargetsNo targets recorded. Patient InstructionsNo instructions recorded. Reason for Referral None Reported. Medical Equipment None Reported. Allergies Allergen ID Allergen Name Allergen Category Reaction Reaction Severity Criticality Documentation Date Start Date Code Code System Note Provider Name and Address Organization Details Recorded Time 8461 Product containin g penicilli n (product) medicatio n Not available Not available Not available 08/24/2024 80394 8001 SNOMED Not Available [facility] - production 4 03:44:27 8462 aspirin medicatio n Not available Not available Not available 08/24/2024 1191 RxNorm Not Available [facility] - production 03:44:27 Medications Name Sig Start Date Stop Date Status Note LastModified by Organization Details LastModified Time multivitamin tablet active Not Available Not Available Not Available prednisone 10 mg tablet active Not Available Not Available Not Available Monistat 3 200 mg/5 gram (4 [...] 150 mg tablet active Not Available Not Available Not Available ondansetron HCl 8 mg tablet active Not Available Not Available Not Available sucralfate 1 gram tablet active Not Available Not Available Not Available lisinopril 20 mg tablet active Not Available Not Available Not Available risperidone 0.25 mg tablet active Not Available Not Available Not Available omeprazole 40 mg capsule,mata yed release active Not Available Not Available Not Available tramadol 50 mg tablet active Not Available Not Available No t Available acetaminophe n 500 mg tablet active Not Available Not Available Not Available acetaminophe n ER 650 mg tablet,exten ded release active Not Available Not Available Not Available Mi-Acid Gas Relief (simethicone ) 80 mg chewable tablet active Not Available Not Available Not Available prazosin 5 mg capsule active Not Available Not Available N ot Available oxycodone-ac etaminophen 5 mg-325 mg tablet active Not Available Not Available Not Available calcium 600 mg (as calcium carbonate 1,500 mg) tablet active Not Available Not Available Not Available hydromorphon e 2 mg tablet active Not Available Not Available Not Available potassium chloride ER 20 mEq tablet,exten ded release(part /cryst) active Not Available Not Available Not Available nicotine (polacrilex) 4 mg gum CHEW 1 GUM FOR 30 MINUTES NEEDED UP TO 15 TIMES DAILY active Not Available Not Available No t Available levothyroxin e 50 mcg tablet active Not Available Not Available Not Available cephalexin 500 mg capsule active Not Available Not Available Not Available esomeprazole magnesium 40 mg capsule,mata yed release active Not Available Not Available Not Available triamcinolon e acetonide 0.1 % topical ointment active Not Available Not Available Not Available clotrimazole -betamethaso ne 1 %-0.05 % topical cream active Not Available Not Available Not Available lisinopril 30 mg tablet active Not Available Not Available Not Available Gas Relief Extra Strength 125 mg capsule active Not Available Not Available N ot Available folic acid 1 mg tablet active Not Available Not Available No t Available hydrocortiso ne 2.5 % topical cream active Not Available Not Available Not Available hydroxyzine HCl 25 mg tablet active Not Available Not Available Not Available mupirocin 2 % topical ointment active Not Available Not Available Not Available furosemide 20 mg tablet active Not Available Not Available Not Available diazepam 10 mg tablet active Not Available Not Available No t Available hydromorphon e 4 mg tablet active Not Available Not Available Not Available Vitamin B-1 100 mg tablet active Not Available Not Available Not Available betamethason e dipropionate 0.05 % topical ointment APPLY TO LARGE AREA FOUR TIMES DAILY X 30 DAYS active Not Available Not Available No t Available ondansetron 4 mg disintegrati ng tablet active Not Available Not Available No t Available metronidazol e 0.75 % topical gel active Not Available Not Available Not Available lamotrigine 100 mg tablet active Not Available Not Available Not Available risperidone 0.5 mg tablet active Not Available Not Available Not Available prazosin 2 mg capsule active Not Available Not Available N ot Available Ventolin HFA 90 mcg/actuatio n aerosol inhaler active Not Available Not Available Not Available esomeprazole magnesium 20 mg capsule,mata yed release active Not Available Not Available Not Available oxycodone 5 mg tablet TAKE 1 TABLET BY MOUTH EVERY 6 HOURS NEEDED FOR SEVERE PAIN active Not Available Not Available Not Available 3-Day Vaginal 2 % cream active Not Available Not Available Not Available duloxetine 20 mg capsule,mata yed release active Not Available Not Available Not Available duloxetine 30 mg capsule,mata yed release active Not Available Not Available Not Available Gas Relief Extra Strength 125 mg chewable tablet active Not Available Not Available Not Available quetiapine ER 400 mg tablet,exten ded release 24 hr active Not Available Not Available Not Available FeroSul 325 mg (65 mg iron) tablet active Not Available Not Available Not Available oxycodone 10 mg tablet active Not Available Not Available No t Available diclofenac 1 % topical gel active Not Available Not Available Not Available cholecalcife rol (vitamin D3) 50 mcg (2,000 unit) capsule active Not Available Not Available Not Available Culturelle 15 billion cell sprinkle capsule active Not Available Not Available Not Available Moisture Barrier Ointment 0.44 %-20.6 % Medline remedy essentials barrier ointment active Not Available Not Available No t Available Belbuca 750 mcg buccal film active Not Available Not Available Not Available Belbuca 900 mcg buccal film active Not Available Not Available Not Available naloxone 4 mg/actuation nasal spray active Not Available Not Available Not Available Trintellix 10 mg tablet active Not Available Not Available Not Available Trintellix 20 mg tablet active Not Available Not Available Not Available Reguloid (psyllium husk) 0.4 gram capsule [...] Details Last Updated DateTime 3 16 /min 81073.6 8 g 98 % 98 % 79 /min 144 mm[Hg] 90 mm[Hg] Not Available [facility] - production 3 13:06:43 Date Recorded Heart rate Oxygen saturation Oxygen saturation in Arterial blood by Pulse oximetry Body temperature Respiratory rate Systolic blood pressure Diastolic blood pressure Provider Name and Address Organization Details Last Updated DateTime 3 85 /min 96 % 96 % 98.4 [degF] 16 /min 154 mm[Hg] 83 mm[Hg] Not Available [facility] - production 3 20:27:00 Date Recorded Respiratory rate Heart rate Oxygen saturation Oxygen saturation in Arterial blood by Pulse oximetry Body temperature Systolic blood pressure Diastolic blood pressure Provider Name and Address Organization Details Last Updated DateTime 3 18 /min 96 /min 95 % 95 % 98.7 [degF] 130 mm[Hg] 78 mm[Hg] Not Available [facility] - production 3 15:16:46 Date Recorded Respiratory rate Oxygen saturation Oxygen saturation in Arterial blood by Pulse oximetry Body temperature Heart rate Systolic blood pressure Diastolic blood pressure Provider Name and Address Organization Details Last Updated DateTime 3 16 /min 94 % 94 % 98.5 [degF] 83 /min 152 mm[Hg] 92 mm[Hg] Not Available [facility] - production 3 12:24:28 Social History None [...] Note [id number] Shelli Velez MD Main - [address] [phone] 11/29/2022 12:24:25 12/02/2022 12:22:07 Epigastric pain [id number] R10.13 [id number] Chema Quezada MD Main - [address] [phone] 04/25/2023 13:06:41 04/29/2023 10:15:27 Carpal tunnel syndrome 91438085 G56.01 This 63-year-ol d female with previous right carpal tunnel surgery has a history of right wrist and hand pain that has been worse over the past week. The pain hasn't responded to OTC meds. I ordered Toradol 30 mg IM. She will follow-up with her regular physicians . The patient agreed with this plan. [id number] Chema Quezada MD [facility] - [address] [phone] 04/26/2023 20:26:56 04/28/2023 10:33:04 Pain in limb [id number] M79.609 This 63-year-ol d female continues to [...] option. The patient agreed with this plan. [id number] Christoph Blood [facility] [address] [place] [phone] 09/02/2023 15:16:43 09/02/2023 22:32:50 Abdominal pain [id number] R10.9 Health Concerns Section Related Observation LastModified [...] (MEDICARE REPLACEMENT/ADV ANTAGE - HMO) Yu Morgan [id number] Yu Morgan 04/25/2023 1 [facility] - DOS ON OR AFTER 2023 - DUAL ELIGIBLE - FPC OPTIONS AND ONE CARE (MEDICARE REPLACEMENT/ADV ANTAGE - HMO) Yu Morgan [id number] Yu Morgan 04/26/2023 1 [facility] - DOS ON OR AFTER 2023 - DUAL ELIGIBLE - FPC OPTIONS AND ONE CARE (MEDICARE REPLACEMENT/ADV ANTAGE - HMO) Yu Morgan [id number] Yu Morgan 09/02/2023 1 [facility] - DOS ON OR AFTER 2023 - DUAL ELIGIBLE - FPC OPTIONS AND ONE CARE (MEDICARE REPLACEMENT/ADV ANTAGE - HMO) Yu Morgan [id number] Yu Morgan Notes Date Note Type Note [...] a referral, verified via . Members community LICENSED PHYSICAL THERAPY ASSISTANT nurse present during time of triage. Member [...] evaluated in home. Shelli Velez MD [address] [facility], [place], [address], [facility] 11/29/2022 12:46:44 04/25/2023 text/html HPI: Yu states [...] .................. .................. .................. .................. .................. .................. ............... Toll Line Repairer Note From Dave Mai: pt requesting visit [...] has good pulses and sensation. VM contacted [facility] ordered 30mg of Toradol IM . Toradol given in left deltoid . Pt educated on s/s warranting a 911 call/trip to the hospital. Pt advised to keep F/U appt tomorrow with her doctor. Toll Line Repairer Allergies: Penicillin, Aspirin .................. .................. .................. .................. .................. .................. .................. ............... Disposition: Fulfilled Chema Quezada MD [address] [facility], [place], [address], [employer] 04/28/2023 17:27:10 04/26/2023 text/html HPI: Member with [...] DId not further info,nessa Quezada MD [address], [place], [address], [employer] 04/26/2023 20:32:11 09/02/2023 text/html This was a supervised home visit with senior administrative support Brenda Newton. HPI: Member reports that she is experiencing abdominal and hernia pain today. Vomiting since this morning. Sweating. Member has hx of hernia pain and is trying to go to [facility] for a urgent medical visit tomorrow. [...] related to her hernia. [facility] for [facility] to be approved for hospital visit tomorrow. Member stated she will call 911 if her symptoms worsen .................. .................. .................. .................. .................. .................. .................. ............... Toll Line Repairer Note From Brenda Newton: Upon arrival, pt was lying in bed on her right side. A/O x4 pt color is pale/warm/dry. Pt is not in any immediate respiratory distress. Pt stated that she has extensive abdominal issues and is supposed to have surgery in [place]. Pt states she has been in 10/10 pain x 2-3 days with nausea, vomiting, and bloody stools. Pt states she wants to go to the ER but insists she gets to [facility] because they are the only ones who will transfer her to [place]. Vitals as noted. Hernia can be visualized in the abdomen. Abdomen is non rigid but extremely tender to the touch. Pt denies any CP, dizziness and/or SOB. [facility] contacted and agrees pt needs to be evaluated in ER. Pt states [facility] will find someone to [facility] and once lifeline is activated, rep stated she told responding unit that pt must be taken to [facility]. EMS BLS unit arrives on scene and states they cannot transport outside their area. Dispatch is notified and asked if [facility] can transport pt to [facility]. [facility] arrives on scene to transport pt and [facility] EMS is cleared. It is noted that pt stated she was at [facility] earlier today for blood work. Pt stated she was brought by transport but they will not do same day transports. [facility] contacted [facility] to alert of pt? s arrival. Call is then cleared. Toll Line Repairer Allergies: Penicillin, Aspirin .................. .................. .................. .................. .................. .................. .................. ............... Disposition: Fulfilled Christoph Blood MD [address] [facility],[address], [place], [address], [facility] 09/02/2023 17:23:01 OBGyn Episode No OBEpisode recorded.
--- OUTSIDE RECORDS SUMMARY | 2025-01-31 13:53 | XMS_ITS | Clinical Summary ---
Author Organization [facility] [address] [facility] Address [address] [place] [address] Phone Care Team Providers Care Substance Abuse Counselor Name Role Phone Jigar Patel Primary Care Provider Allergies Active Allergy Reactions Criticality Noted Date Comments Aspirin Nausea And Vomiting,Unknown 09/27/2022 Other Reaction(s): stomach upset, vomiting Codeine GI intolerance,Nausea Only 07/01/2012 Rash Dexamethasone GI intolerance,Nausea And Vomiting 09/27/2022 Doxycycline 01/11/2019 Nsaids (Non-Steroidal Anti-Inflammatory Drug) 01/11/2019 Penicillins 01/11/2019 Medications diazePAM (VALIUM) 10 mg tablet Active folic acid (FOLVITE) 1 mg tablet Take 1 Tab by mouth daily. Active levothyroxine (SYNTHROID, LEVOTHROID) 50 mcg tablet Active lisinopril-hydroCHL OROthiazide (PRINZIDE,ZESTORETI C) 20-12.5 mg per tablet Take 1 tablet by mouth daily. Active omeprazole (PriLOSEC) [address] capsule Take 1 Cap by mouth daily. Active ondansetron (ZOFRAN) 8 mg tablet Take 1 Tab by mouth every 8 hours as needed. Active prazosin (MINIPRESS) 5 mg capsule Active ergocalciferol, vitamin D2, 50 mcg (2,000 unit) capsule Take 1 Cap by mouth daily. Active esomeprazole (NexIUM) [address] capsuleIndications: GERD (gastroesophageal reflux disease) TAKE 1 CAPSULE BY MOUTH TWICE DAILY 56 capsule 3 Active pantoprazole (PROTONIX) 40 mg EC tablet Active apixaban (ELIQUIS) 5 mg tablet Take 1 tablet (5 mg total) by mouth 2 (two) times a day. Active oxyCODONE (ROXICODONE) 5 mg immediate release tablet Take 1 tablet (5 mg total) by mouth every 6 (six) hours if needed for severe pain. Max Daily Amount: 20 mg 10 tablet Active diphenoxylate-atrop ine (LOMOTIL) 2.5-0.025 mg per tabletIndications:D iarrhea following gastrointestinal surgery TAKE 2 TABLETS BY MOUTH THREE TIMES DAILY NEEDED 180 tablet 4 Active loperamide (IMODIUM) 2 mg capsule TAKE 1 CAPSULE BY MOUTH FOUR TIMES DAILY NEEDED 30 capsule Active Additional Information Patient not taking.Reported on 01/19/2025 loperamide (Imodium A-D) 2 mg tablet Take 1 tablet (2 mg total) by mouth 4 (four) times a day if needed for diarrhea. 360 tablet 3 025 2024 Active lidocaine (XYLOCAINE) 5 % ointmentIndications :Diarrhea following gastrointestinal surgery APPLY A SMALL AMOUNT TO AFFECTED AREA ON RECTUM 3 TIMES DAILY NEEDED 30 g 1 Active cholestyramine (QUESTRAN) 4 gram powder Take 1 packet (4 g total) by mouth 3 (three) times a day with meals. Dissolve in 8 oz of liquid and drink before a meal 90 packet 11 025 2025 Active lidocaine (XYLOCAINE) 5 % ointmentIndications :Diarrhea following gastrointestinal surgery APPLY A SMALL AMOUNT TO AFFECTED AREA ON RECTUM 3 TIMES DAILY NEEDED 49.222 g 2 024 2024 Discontinued bvmhmd-vtxlnkes-qdi lase (Creon) 36,000-114,000- 180,000 unit capsule,delayed release(DR/EC)Indic ations:Pancreatic insufficiency Take 2 capsules by mouth 4 (four) times a day. 600 capsule 3 024 2024 Hospital, Clinic, or Other Facility Administered Medication [...] KALE (obstructive sleep apnea) 01/11/2019 Overview (08/31/2024): [facility] Home Polysomnogram: Date 02/04/2019; Wt 235#; VICKY 5, AI 2.5; HI 2.7; Unclassified apneas 0; Obstructive apneas 15; Central apneas 3; Mixed apneas 0; hypopneas 21; average oxygen saturation 88% (lowest 81% with saturations <88% for 5% or more of study) - Obstructive Sleep Apnea - mild; mostly hypopneas and obstructive apneas; with sleep related hypoventilation by 2018 home polysomnogram. Pulmonary nodule 01/11/2019 Resolved Problems Problem Noted Date Diagnosed Date Resolved Date Diarrhea following gastrointestinal surgery 08/31/2024 10/26/2024 Encounters Date Type Department Care Team Description 01/19/2025 11:00 AM EDT Office Visit Gastroenterology - [address] [phone] Garrett Shabazz MD Diarrhea, unspecified type (Primary Dx); Functional diarrhea; Incisional hernia, without obstruction or gangrene; Ventral hernia without obstruction or gangrene 12/01/2024 Telephone Gastroenterology - [address] [phone] Garrett Shabazz MD Provider Call Back 11/08/2024 8:39 AM EST Anesthesia Event [facility] Endoscopy [address] [place] [address] Monica Hernandez MD 11/08/2024 7:28 AM EST - 11/08/2024 11:59 PM EST Hospital Encounter [facility] Endoscopy [address] [place] [address] Garrett Shabazz MD Freeman, Katharine O, MD Abrokwah, Foster 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, 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 History of colon polyps Discharge Disposition: Home or Self Care from Last 3 Months Surgical History Surgery Date Site/Laterality Comments HERNIA REPAIR PROCEDURE: [place] REPAIR FIRST ABDOMINAL [...] Date Smoking Tobacco: Some Days Cigarettes 0.3 46.8 Started: 04/13/1978 Smokeless Tobacco: Never Tobacco Cessation:Ready [...] (196 lb) 11/08/2024 8:18 AM EST Height 157.5 cm (5' 2 ) 01/19/2025 10:24 AM EDT Body Mass Index 34.72 11/08/2024 8:18 AM EST Plan of Treatment Health Maintenance Due Date Last Done Comments Breast Cancer Screening 1960 Hepatitis A Vaccines (1 of 2 - Risk 2-dose series) 1981 Cervical Cancer Screening: Pap Smear 1983 DTaP,Tdap,and Td Vaccines (2 - Td or Tdap) 10/29/2009 10/29/1999 Zoster Vaccines (1 of 2) 2012 Pneumococcal Vaccine: 50+ Years (2 of 2 - PCV) 07/12/2012 07/12/2011 Pneumococcal Vaccine: Pediatrics (0 to 5 Years) and At-Risk Patients (6 to 64 Years) (2 of 2 - PCV) 07/12/2012 07/12/2011 RSV Immunization Adult Patients (1 - Risk 60-74 years 1-dose series) 2022 Depression Screening 09/29/2022 HIV Screening 09/29/2022 Hepatitis C Screening 09/29/2022 Medicare Annual Wellness Visit 09/29/2022 Social Influencers of Health Screening 09/29/2022 COVID-19 Vaccine ( season) 2024 09/24/2021, 01/11/2021, 12/01/2020 Influenza Vaccine (Season Ended) 2025 07/16/2020, 07/12/2011, 08/07/2010, Additional history exists Hypertension/CHF/CAD Annual BMP Blood Test 01/19/2026 01/19/2025, 10/21/2024, 10/24/2023, Additional history exists Cholesterol Screening (Lipid Panel) 10/01/2028 10/01/2023, 10/01/2023 [...] Procedure Name Priority Date/Time Associated Diagnosis Comments ELECTROLYTES, STOOL Routine 01/20/2025 9 :51 AM EDT Diarrhea COMPREHENSIVE METABOLIC PANEL Routine 01/19/2025 10:59 AM EDT Diarrhea, unspecified type COLONOSCOPY Routine 11/08/2024 8:55 AM EST History of colon polyps TISSUE EXAM Routine 11/08/2024 8:48 AM EST History of colon polyps LIPID PANEL Routine 10/01/2023 from Last 3 Months or Most Recently Relevant to Health Maintenance Results * Electrolytes, stool (01/20/2025 9:51 AM EDT) Sodium, Stool 81 mmol/L 01/25/2025 7:08 PM EDT [facility] Comment: INTERPRETIVE INFORMATION: Fecal Sodium A reference interval has not been established for fecal specimens. This test was developed and its performance characteristics determined by [email or web address]. It has not been cleared or approved by the [place] Food and Drug Administration. This test was performed in a CLIA certified laboratory and is intended for clinical purposes. Potassium, Stool 39 mmol/L 01/26/20 25 7:08 PM EDT [facility] Comment: INTERPRETIVE INFORMATION: Fecal Potassium A reference interval has not been established for fecal specimens. This test was developed and its performance characteristics determined by [email or web address]. It has not been cleared or approved by the [place] Food and Drug Administration. This test was performed in a CLIA certified laboratory and is intended for clinical purposes. Chloride, Stool 20 mmol/L 5 7:08 PM EDT [facility] Comment: INTERPRETIVE INFORMATION: Fecal Chloride A reference interval has not been established for fecal specimens. This test was developed and its performance characteristics determined by [email or web address]. It has not been cleared or approved by the US Food and Drug Administration. This test was performed in a CLIA certified laboratory and is intended for clinical purposes. Performed By: [facility] [address] [place] [id number] [employer] Feeder: Latrell Felton MD, PhD CLIA Number: [id number] Stool Rectum structure / Unknown Non-blood Collection / Unknown 01/20/2025 9:51 AM EDT 01/20/2025 10:41 AM EDT Garrett Shabazz MD LAB BODY FLUIDS AND STOOLS CIPRIANO BUCHANAN Final Result [facility] [address] [place] [id number] * (ABNORMAL) Comprehensive metabolic panel (01/19/2025 10:59 AM EDT) Sodium 128(L) 133 - 145 mmol/L LAB CHEMISTRY METHOD 01/19/2025 2:51 PM [facility] Potassium 3.4(L) 3.5 - 5.5 mmol/L LAB CHEMISTRY METHOD 01/19/2025 2:51 PM [facility] Chloride 91(L) 96 - 110 mmol/L LAB CHEMISTRY METHOD 01/19/2025 2:51 PM [facility] CO2 33(H) 21 - 32 mmol/L LAB CHEMISTRY METHOD 01/19/2025 2:51 PM [facility] Anion Gap 4 3 - 11 LAB CHEMISTRY METHOD 01/19/2025 2:51 PM [facility] Glucose 78 70 - 100 mg/dL LAB CHEMISTRY METHOD 01/19/2025 2:51 PM [facility] BUN 3(L) 5 - 25 mg/dL LAB CHEMISTRY METHOD 01/19/2025 2:51 PM [facility] Creatinine 0.60 0.50 - 1.10 mg/dL LAB CHEMISTRY METHOD 01/19/2025 2:51 PM [facility] eGFR 102 >=60 mL/min/1. 73m2 LAB CHEMISTRY METHOD 01/19/2025 2:51 PM [facility] Comment:Calculation based on the??Chronic Kidney Disease Epidemiology Collaboration (CKD-EPI) equation refit??without adjustment for race. BUN/Creatinine Ratio 5.0 LAB CHEMISTRY METHOD 01/19/2025 2:51 PM EDT [facility] Calcium 9.0 8.5 - 10.5 mg/dL LAB CHEMISTRY METHOD 01/19/2025 2:51 PM EDT [facility] AST (SGOT) 18 10 - 42 unit/L LAB CHEMISTRY METHOD 01/19/2025 2:51 PM EDT [facility] ALT (SGPT) 25 10 - 60 unit/L LAB CHEMISTRY METHOD 01/19/2025 2:51 PM EDT [facility] Alkaline Phosphatase 133(H) 42 - 121 unit/L LAB CHEMISTRY METHOD 01/19/2025 2:51 PM EDT [facility] Total Protein 6.7 6.0 - 8.0 g/dL LAB CHEMISTRY METHOD 01/19/2025 2:51 PM EDT [facility] Albumin 3.7 3.2 - 5.0 g/dL LAB CHEMISTRY METHOD 01/19/2025 2:51 PM EDT [facility] Total Bilirubin 0.5 0.0 - 1.4 mg/dL LAB CHEMISTRY METHOD 01/19/2025 2:51 PM EDT [facility] Blood Venous blood specimen / Unknown Venipuncture / Unknown 01/19/2025 10:59 AM EDT 01/19/2025 11:33 AM EDT us Garrett Shabazz MD LAB BLOOD ORDERABLES Final Resu lt [facility] [address] [place] [address], * COLONOSCOPY Anesthesia - MAC; [facility] ENDOSCOPY (11/08/2024 8:55 AM EST) Anatomical [...] pathology results. Narrative 11/08/2024 8:59 AM EST [facility] GI Patient Name: Yu Morgan Procedure Date: 11/08/2024 8:40 AM Date of : 1960 Age: 64 Gender: Female Note Status: Finalized Attending : Garrett Shabazz MD, Procedure Date No Time: [...] Procedure Code(s): ? --- Professional --- ? 79601, Colonoscopy, flexible; with biopsy, single or ? multiple CPT copyright 2020 [employer]. All rights reserved. The codes documented in this report are preliminary and upon egg worker review may be revised to meet current compliance requirements. MD Garrett Do MD 11/08/2024 8:59:29 AM This report has been signed electronically.Garrett Shabazz MD Number of Addenda: 0 Note Initiated On: 11/08/2024 8:40 AM Scope In: Scope Out: ? Endoscopy Department at [facility] - [address] [place] [address], ? [place] [address] Procedure Note Garrett Shabazz MD - 11/08/2024 [facility] GI Patient Name: Yu Morgan [...] Findings: There was evidence of a prior obp-aq-gipuirc-colonic anastomosis in the sigmoid colon. This was patentand was characterized by healthy appearing mucosa. The anastomosis was traversed. The exam was otherwise without abnormality ondirect and retroflexion views. Clara-anal excoriationsnoted. Biopsies were taken with a cold forceps in therectum, in the sigmoid colon and in the distal ileum for histology. Procedure Code(s): --- Professional --- 24471, Colonoscopy, flexible; with biopsy, singleor multiple CPT copyright 2020 [employer]. All rights reserved. The codes documented in this report are preliminary and upon egg worker reviewmay be revised to meet current compliance requirements. MD Garrett Do MD 11/08/2024 8:59:29 AM This report has been signed electronically.Garrett Shabazz MD Number of Addenda: 0 Note Initiated On: 11/08/2024 8:40 AM Scope In: Scope Out: Endoscopy Department at [facility] - [address] [place] [phone] IMPRESSION: - Patent end-to-end ileo-colonic anastomosis, characterized [...] diagnostic histopathologic change. 11/09/2024 8:26 AM EST [facility] Gross Description A. Colon, biopsies [...] paraffin embedded. 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 Care Teams Substance Abuse Counselor Relationship Specialty Start Date End Date Jigar Patel PA [address] [place] [phone] PCP - General 02/26/23
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
== END 2025-01-31 11:33 | disposition home or self-care (01) ==
LOC: HO.HOP 11:31
PROVIDERS: PCP Internal Medicine; Visit Provider Clinical Nurse Specialist Psychiatric/Mental Health
DX: F33.9 Major depressive disorder, recurrent, unspecified (principal); F60.3 Borderline personality disorder; F41.1 Generalized anxiety disorder; F41.0 Panic disorder [episodic paroxysmal anxiety]
CPT/HCPCS: 99214

== ENCOUNTER 2025-02-28 10:17 | Outpatient (AMB) | payer OTHER, SELFPAY ==
--- NOTE | 2025-02-28 10:32 | A.OFFPC_ITS ---
Vital Signs 02/28/25 10:37 Height 5 ft 3 in BMI Reason not done Patient refused/unable BP 110/54 L Blood Pressure Location Rt brachial Position Sitting Pulse 86 Pulse Source Pulse Oximeter Pulse Oximetry (%) 94 Oxygen Delivery Method Room Air Intake Visit Reasons: f/u pain managment Conveyor Installer Required: No Accompanied by: Self / Same As Patient Allergies baclofen Allergy (Severe, Verified 02/28/25 10:56) GI upset dexamethasone Allergy (Severe, Verified 02/28/25 10:56) Vomiting doxycycline Allergy (Severe, Verified 02/28/25 10:56) Vomiting naproxen [Aleve] Allergy (Severe, Verified 02/28/25 10:56) Vomiting penicillin V Allergy (Severe, Verified 02/28/25 10:56) vomitting Sulfa (Sulfonamide Antibiotics) Allergy (Severe, Verified 02/28/25 10:56) Vomiting ibuprofen [Advil] Allergy (Intermediate, Verified 02/28/25 10:56) Vomiting codeine [Codeine] Allergy (Mild, Verified 02/28/25 10:56) VOMITING aspirin [ASPIRIN] Adverse Reaction (Severe, Verified 02/28/25 10:56) VOMITING Medication List - Last Reconciled 02/28/25 by Jigar Patel PA-C acetaminophen ER 650 mg PO Q12H PRN 30 days albuterol sulfate 90 mcg/actuation 2 inhalations inhalation Q6H PRN 30 days apixaban (Eliquis) 5 mg PO BID 30 days atorvastatin 20 mg PO DAILY 90 days cane As directed chair, wheel (Wheel chair) As directed cholecalciferol (vitamin D3) 25 mcg PO DAILY diaper,brief,adult,disposable As directed size large diazepam 10 mg (2 x 5 mg) PO BID diclofenac sodium 3% 1 appl topical BID 4 weeks diphenoxylate-atropine 2.5-0.025 mg 6 tabs orally daily; disposable gloves As directed [Electric scooter As directed] [Electric wheelchair As directed] escitalopram oxalate (Lexapro) 20 mg PO DAILY ibrzqvldjch-shbqkstyo-ibbkhvwl 100-62.5-25 mcg (Trelegy Ellipta) 1 ea inhalation DAILY 30 days furosemide 40 mg PO BID gabapentin 300 mg PO BID gloves, latex with aloe vera (Aloe Vera Latex Gloves) 1 ea miscellaneous DAILY 30 days [hand held shawer spray As directed] levothyroxine 50 mcg PO DAILY lidocaine 5% 1 appl topical DAILY 30 days vaubee-swrmjqaj-briazap 36,000-114,000- 180,000 unit (Creon) caps PO lisinopril 30 mg PO DAILY loperamide 4 mg (2 x 2 mg) PO QID PRN 30 days menthol-zinc oxide 0.44-20.6 % (Calmoseptine) 1 appl topical QID 30 days multivitamin with folic acid 400 mcg (Tab-A-Imelda) 1 tab PO DAILY ondansetron HCl 8 mg PO QID 30 days oxycodone 5 mg PO Q6H PRN 14 days pantoprazole 40 mg PO DAILY potassium chloride ER (Klor-Con M) 20 mEq PO DAILY 30 days potassium chloride ER 20 mEq PO DAILY [pull ups As directed] quetiapine (Seroquel) 50 mg (2 x 25 mg) PO BEDTIME [right hand brace As directed] simethicone (Gas Relief (simethicone)) 125 mg PO TID PRN 30 days sitz bath ([employer] Sitz Bath) As directed thiamine HCl (vitamin B1) 100 mg PO DAILY 90 days tizanidine 2 mg PO BID PRN 15 days walker (Ultra-Light Rollator misc) As directed [washable bedpads As directed] Tobacco use date assessed: 12/27/24 Dental Screening Dental Screen Date: 12/27/24 HPI f/u pain managment HPI Details The patient is a 64-year-old female here today for a follow up visit . The symptoms reportedly stem from pancreatic insufficiency and ongoing pancreatitis. The patient describes persistent, severe abdominal pain radiating to the back, exacerbated by eating, and accompanied by frequent diarrhea described as malodorous and fatty, suggestive of malabsorption. The symptoms have been ongoing with little relief from current medication regimens. The patient also reports a history of chronic diarrhea that correlates with her diagnosis of pancreatic insufficiency, leading to significant weight loss and decreased functional status, affecting daily living activities. She has followed up with her fisher eel recently and is trying to get a new injection therapy approved for frequent stools. She has concurrent issues with her abdominal hernia, for which there is a presence of tissue, necessitating surgical evaluation. The hernia complicates her condition due to its increasing size and potential complications, including intestinal obstruction. She now has limited options for resolution of her hernias. She continues to be in pretty severe pain. Her last hospital admission was strictly for pain control related to her incisional hernias. As above she has not been deemed a surgical candidate. She has upcoming appointment with hernia specialist at [facility] for 2nd opinion though at this point there has been no relatively safe surgical option for her. --> unfortunately her quality of life is pretty poor and she is quite discouraged by this. We have agreed to start a opiate pain contract to help her with her pain in hopes that will help her quality of life for the time being. She will use acetaminophen 650 along with p.r.n. use of oxycodone 5 mg q.6 hours for her abdominal related pain. [facility] Medical History History of pulmonary embolism Congestive heart failure HTN (hypertension) HLD (hyperlipidemia) Major depression, recurrent, chronic Generalized anxiety disorder with panic attacks Bipolar disorder, mixed Nicotine dependence, cigarettes, uncomplicated Hypokalemia Flat feet, bilateral Chronic post-traumatic stress disorder (PTSD) Pulmonary nodules Chronic respiratory failure COPD (chronic obstructive pulmonary disease) Abdominal hernia Right lumbar radiculopathy Osteopenia Surgical History History of blepharoplasty History of ventral hernia repair History of resection of small bowel History of ileostomy History of hernia repair History of reversal of ileostomy History of colectomy History of colonoscopy History of umbilical hernia repair History of bladder surgery History of total abdominal hysterectomy and bilateral salpingo-oophorectomy History of cholecystectomy History of appendectomy History of tonsillectomy Family History Father Renal cell cancer Prostate cancer Leukemia Diabetes Hypertension Mother Hypertension Paternal Grandmother Colon cancer Maternal Grandfather Myocardial infarction Sister Lupus Daughter In good health Other Mental health disorder Social History Housing: Apartment Alcohol intake: never Patient Tobacco Use Status: Current someday Tobacco user Tobacco use type: Cigarette Cigarettes Per Day: 10 Years Smoked: (onset 17yo, 1/2-1ppd x 47yrs, 30pyh) Packs per year/per ci.00 e-Cigarette/Vaping Use: Never Used service: No Current occupational status: disabled Current occupation: right hand dominant Cognitive needs: Yes (cane/walker) Hearing needs: No Vision needs: Yes (glasses) Questionnaire PHQ-9 Over the last 2 weeks, how often have you been bothered by any of the following problems? 1. Little interest or pleasure in doing things: not at all 2. Feeling down, depressed, or hopeless: several days 3. Trouble falling or staying asleep, or sleeping too much: not at all 4. Feeling tired or having little energy: nearly every day 5. Poor appetite or overeating: nearly every day 6. Feeling bad about yourself - or that you are a failure or have let yourself or your family down: not at all 7. Trouble concentrating on things, such as reading the newspaper or watching television: nearly every day 8. Moving or speaking so slowly that other people could have noticed. Or the opposite - being so fidgety or restless that you have been moving around a lot more than usual: not at all 9. Thoughts that you would be better off or of hurting yourself in some way: not at all Total score: 10 Depression Screening Interpretation: Positive Depression Screening Follow-up: Existing condition and In treatment Depression Screening Done: Yes 61470 - PHQ-9 Billing: Yes Source: Developed by Drs. Enoch Vallecillo, Aunm Jung, Nathan Tiwari and colleagues, with an educational clifton from [employer]. Thrive Questionnaire Date Thrive assessed: 02/28/25 I am a: Patient What is your living situation today?: I have a steady place to live Within the past 12 months, did the food you bought not last and you didn't have the money to get more?: I choose not to answer this question Within the past 12 months, did you worry whether your food would run out before you got money to buy more?: I choose not to answer this question Do you have trouble paying for medicines?: No Do you have trouble getting transportation to medical appointments?: No Do you have trouble paying your heating and electricity bill?: No Do you have trouble taking care of your child, family member or friend?: No Do you have trouble with day-to-day activities such as bathing, preparing meals, shopping, managing finances, etc.?: Yes Are you currently unemployed and looking for a job?: No Are you interested in more education?: No Please select the resources that you would like help with: None Currently or been in a relationship where the following occur: I choose not to answer THRIVE Score: 0 AUDIT C Alcohol Use Questionnaire (AUDIT-C) 1. How often do you have a drink containing alcohol?: Never 3. How often do you have six or more drinks on one occasion?: Never Total Score: 0 EMILY-7 AMB Questionnaire EMILY-7 Date EMILY - 7 assessed: 02/28/25 Feeling nervous, anxious, or on edge: 2 = More than half the days Not being able to stop or control worryin = More than half the days Worrying too much about different things: 2 = More than half the days Trouble relaxin = Several days Being so restless that it is hard to sit still: 2 = More than half the days Becoming easily annoyed or irritable: 1 = Several days Feeling afraid as if something awful might happen: 0 = Not at all Total EMILY-7 score (0-4 normal; 5-9 mild; 10-14 moderate; 15-21 severe): 10 Source: Developed by Drs. Enoch Vallecillo, Anum Jung, Nathan Tiwari and colleagues, with an educational clifton from [employer]. EMILY-7 Assessment Billing EMILY-7 Assessment Tool: EMILY-7 Assessment 48307 Physical exam (Primary Care) Vital Signs: Last Vital Signs Pulse 86 02/28/25 10:37 BP 110/54 L 02/28/25 10:37 Pulse Ox 94 02/28/25 10:37 Oxygen Delivery Method Room Air 02/28/25 10:37 Tobacco/Smoking Status: Tobacco use Status Tobacco use date assessed 12/27/24 02/28/25 10:32 Patient Tobacco Use Status Current someday Tobacco 02/28/25 10:32 Tobacco use type Cigarette 02/28/25 10:32 e-Cigarette/Vaping Use Never Used 02/28/25 10:32 PHQ-9: PHQ-9 Score PHQ-9: Total score 10 02/28/25 11:00 Depression Screening Interpretation: Positive Depression Screening Follow-up: Existing condition and In treatment Thrive Assessment: Date of Thrive Assessment Date Thrive assessed 02/28/25 02/28/25 10:35 Currently or been in a relationship where the following occur: I choose not to answer Coding Level of Care Code Est Pt Level 4 (92618) Diagnoses Recurrent incisional hernia K43.2 Essential hypertension I10 Hypertension type: essential hypertension Uncomplicated opioid dependence F11.20 Substance use status: uncomplicated Additional Codes PHQ-9 - 30425 - PHQ-9 Billing: Yes ([id number]) EMILY-7 Assessment Billing - EMILY-7 Assessment Tool: EMILY-7 Assessment 50957 ([id number]) Assessment & Plan Assessment & Plan (1) Recurrent incisional hernia: Code(s): K43.2 - Incisional hernia without obstruction or gangrene Category: Medical Plan: Continues to have moderate to severe abdominal hernia pain. She reports her pain is almost intolerable and she did find that oxycodone has been helpful. She again was recently seen [facility] for abdominal pain and diarrhea. She believes her hernias getting larger. CT of abdomen does indeed show incisional hernias. There has not been a surgical option for her due to the c omplexity of her case. She does have a general fisher eel (Dr. Shabazz) whom has been trying his best with medications to help slow her GI tract down and reduce her bowel frequency. We did discuss the habit-forming nature and dependency to opiates and she understands and will use oxycodone 10 mg on an as needed basis. HAS A VERY LIMITED QUALITY OF LIFE DUE TO HER CHRONIC ABDOMINAL PAIN RELATED TO HER HERNIAS AND FREQUENCY OF HER BOWEL MOVEMENTS. SHE DOES HAVE HELP AT HOME WELL WITH A COMPLIANCE QUALITY PERFORMANCE ANALYST TODAY SHE SIGNED A DRUG CONTRACT--AND WILL USE OXYCODONE 5-10 MG P.R.N. FOR HER PAIN ALONG WITH THE ACETAMINOPHEN 650 MG. (2) HTN (hypertension): Code(s): I10 - Essential (primary) hypertension Category: Medical Qualifiers: Hypertension type: essential hypertension Qualified Code(s): I10 - Essential (primary) hypertension Plan: Patient's blood pressure acceptable today in office. Will continue her current dose of antihypertensive medication with goal blood pressure to remain below 140/90. (3) Opiate dependence: Code(s): F11.20 - Opioid dependence, uncomplicated Category: Medical Qualifiers: Substance use status: uncomplicated Qualified Code(s): F11.20 - Opioid dependence, uncomplicated Plan: Today patient sign drug contract in his willing do urine drug screen. Medications: New cyclobenzaprine 10 mg PO BEDTIME 30 tabs 3RF 30 days M47.16 - Other spondylosis with myelopathy, lumbar region Discontinued tizanidine Discontinued Reason: Doctor's Order 2 mg PO BID 15 days PRN 30 tabs 0RF muscle spasticity M19.041 - Primary osteoarthritis, right hand On Hold acetaminophen ER Hold Comment: Doctor's Order 650 mg PO Q12H 30 days PRN 60 tabs 3RF pain M19.031 - Primary osteoarthritis, right wrist
[2025-02-28 10:37] VITALS: BP 110/54; PULSE 86; O2SAT 94
--- OUTSIDE RECORDS SUMMARY | 2025-02-28 11:35 | XMS_ITS | Data Portability ---
Author Organization [employer] [place] [employer] Address [address] [place] [address] Care Team Providers Care Environmental Adviser Name Role Phone [facility] Referring Provider Assessment Encounter Date Assessment Date Assessment LastModified by Organization Details LastModified Time 11/29/2022 11/29/2022 I have reviewed and agree with the assessment and plan as documented by the product mgmt dev manager. I provided real-time medical direction for [...] assessment and plan as documented by the product mgmt dev manager. I provided real time medical direction for this encounter and was immediately available to provide additional phone based assistance as needed. History as noted by product mgmt dev manager. Pt with history of multiple abdominal/bowel surgeries including prior colostomy reversal. Pt has known ventral hernia and has been evaluated at [facility] for surgical repair of the hernia. Pt [...] since she was hoping to get to [facility] tomorrow, but is now stating that she is willing to go to the [facility] ED (since they are part of [facility]) for evaluation and possible transfer to [facility] for surgical evaluation. Research Consultant helps to arrange ambulance transport to the [facility] ED. I call an expect to the [facility] ED furnace charger as well. btils Not available 09/02/2023 17:22:49 Plan of Treatment Reminders Order Date Submit Date Provider Last Modified By Organization Details Last Modified Time Details Appointments None recorded. Lab None recorded. Referral None recorded. Procedures None recorded. Surgeries None recorded. Imaging None recorded. Medication Orders Moisture Barrier Ointment 0.44 %-20.6 % 2022 023 [facility], [address], [place], [address], 3 12:47:52 Patient TargetsNo targets recorded. Patient InstructionsNo instructions recorded. Reason for Referral None Reported. Medical Equipment None Reported. Allergies Allergen ID Allergen Name Allergen Category Reaction Reaction Severity Criticality Documentation Date Start Date Code Code System Note Provider Name and Address Organization Details Recorded Time 8461 Product containin g penicilli n (product) medicatio n Not available Not available Not available 08/24/2024 30854 8001 SNOMED Not Available [employer] - production [...] Details Last Updated DateTime 3 16 /min 65614.6 8 g 98 % 98 % 79 /min 144 mm[Hg] 90 mm[Hg] Not Available [employer] - production 3 13:06:43 Date Recorded Heart rate Oxygen saturation Oxygen saturation in Arterial blood by Pulse oximetry Body temperature Respiratory rate Systolic blood pressure Diastolic blood pressure Provider Name and Address Organization Details Last Updated DateTime 3 85 /min 96 % 96 % 98.4 [degF] 16 /min 154 mm[Hg] 83 mm[Hg] Not Available [employer] - production 3 20:27:00 Date Recorded Respiratory rate Heart rate Oxygen saturation Oxygen saturation in Arterial blood by Pulse oximetry Body temperature Systolic blood pressure Diastolic blood pressure Provider Name and Address Organization Details Last Updated DateTime 3 18 /min 96 /min 95 % 95 % 98.7 [degF] 130 mm[Hg] 78 mm[Hg] Not Available [employer] - production 3 15:16:46 Date Recorded Respiratory rate Oxygen saturation Oxygen saturation in Arterial blood by Pulse oximetry Body temperature Heart rate Systolic blood pressure Diastolic blood pressure Provider Name and Address Organization Details Last Updated DateTime 3 16 /min 94 % 94 % 98.5 [degF] 83 /min 152 mm[Hg] 92 mm[Hg] Not Available [employer] - production 3 12:24:28 Social History None [...] Note [id number] Shelli Velez MD Main - [address] [phone] 11/29/2022 12:24:25 12/02/2022 12:22:07 Epigastric pain 11132776 R10.13 [id number] Chema Quezada MD Main - [address] [address] 04/25/2023 13:06:41 04/29/2023 10:15:27 Carpal tunnel syndrome [id number] G56.01 This 63-year-ol d female with previous right carpal tunnel surgery has a history of right wrist and hand pain that has been worse over the past week. The pain hasn't responded to OTC meds. I ordered Toradol 30 mg IM. She will follow-up with her regular physicians . The patient agreed with this plan. [id number] Chema Quezada MD [facility] - [address] [address] 04/26/2023 20:26:56 04/28/2023 10:33:04 Pain in limb [id number] M79.609 This 63-year-ol d female continues to [...] option. The patient agreed with this plan. [id number] [facility] [address] [place] [phone] 09/02/2023 15:16:43 09/02/2023 22:32:50 Abdominal pain [id number] R10.9 Health Concerns Section Related Observation LastModified by Organization Detai ls LastModified Time None Recorded Concern Status LastModified by Organization Details LastModified Time None Recorded Advance Directives Directive None Recorded Payers Encounter Date Sequence Insurance Name Policy Number Policy Mcguire Covered Member ID Mcguire Member ID Guarantor Name 11/29/2022 1 [facility] - DOS PRIOR TO 2023 - DUAL ELIGIBLE (MEDICARE REPLACEMENT/ADV ANTAGE - HMO) Yu Morgan [id number] Yu Morgan 04/25/2023 1 [facility] - DOS ON OR AFTER 2023 - DUAL ELIGIBLE - LONG-TERM OPTIONS AND ONE CARE (MEDICARE REPLACEMENT/ADV ANTAGE - HMO) Yu Morgan [id number] Yu Morgan 04/26/2023 1 [facility] - DOS ON OR AFTER 2023 - DUAL ELIGIBLE - LONG-TERM OPTIONS AND ONE CARE (MEDICARE REPLACEMENT/ADV ANTAGE - HMO) Yu Morgan [id number] Yu Morgan 09/02/2023 1 [facility] - DOS ON OR AFTER 2023 - DUAL ELIGIBLE - LONG-TERM OPTIONS AND ONE CARE (MEDICARE REPLACEMENT/ADV ANTAGE - HMO) Yu Morgan [id number] Yu Morgan Notes Date Note Type Note [...] a referral, verified via . Members community DIP FILLER nurse present during time of triage. Member [...] evaluated in home. Shelli Velez MD [address] [facility], [place], [address], [facility] 11/29/2022 12:46:44 04/25/2023 text/html HPI: Yu states [...] .................. .................. .................. .................. .................. .................. ............... Research Consultant Note From Dave Mai: pt requesting visit [...] has good pulses and sensation. VM contacted [facility] ordered 30mg of Toradol IM . Toradol given in left deltoid . Pt educated on s/s warranting a 911 call/trip to the hospital. Pt advised to keep F/U appt tomorrow with her doctor. Research Consultant Allergies: Penicillin, Aspirin .................. .................. .................. .................. .................. .................. .................. ............... Disposition: Fulfilled Chema Quezada MD [address], [place], [address], [facility] 04/28/2023 17:27:10 04/26/2023 text/html HPI: Member with [...] DId not further info,nessa Quezada MD [address], [place], [address], [facility] 04/26/2023 20:32:11 09/02/2023 text/html This was a supervised home visit with product mgmt dev manager Brenda Newton. HPI: Member reports that she is experiencing abdominal and hernia pain today. Vomiting since this morning. Sweating. Member has hx of hernia pain and is trying to go to [facility] for a urgent medical visit tomorrow. [...] related to her hernia. Member agreed to [facility] follow up while waiting for transport to be approved for hospital visit tomorrow. Member stated she will call 911 if her symptoms worsen .................. .................. .................. .................. .................. .................. .................. ............... Research Consultant Note From Brenda Newton: Upon arrival, pt was lying in bed on her right side. A/O x4 pt color is pale/warm/dry. Pt is not in any immediate respiratory distress. Pt stated that she has extensive abdominal issues and is supposed to have surgery in [place]. Pt states she has been in 10/10 pain x 2-3 days with nausea, vomiting, and bloody stools. Pt states she wants to go to the ER but insists she gets to [facility] because they are the only ones who will transfer her to [place]. Vitals as noted. Hernia can be visualized in the abdomen. Abdomen is non rigid but extremely tender to the touch. Pt denies any CP, dizziness and/or SOB. [facility] contacted and agrees pt needs to be evaluated in ER. Pt states lifeline will find someone to [facility] and once lifeline is activated, rep stated she told responding unit that pt must be taken to [facility]. EMS BLS unit arrives on scene and states they cannot transport outside their area. [facility]patch is notified and asked if [facility] can transport pt to [facility]. [facility] arrives on scene to transport pt and [facility] is cleared. It is noted that pt stated she was at [facility] earlier today for blood work. Pt stated she was brought by transport but they will not do same day transports. [facility] contacted [facility] to alert of pt? s arrival. Call is then cleared. Research Consultant Allergies: Penicillin, Aspirin .................. .................. .................. .................. .................. .................. .................. ............... Disposition: Fulfilled Christoph Blood MD [address] [facility], [place], [address], [employer] 09/02/2023 17:23:01 OBGyn Episode No OBEpisode recorded.
--- OUTSIDE RECORDS SUMMARY | 2025-02-28 11:35 | XMS_ITS | Encounter Summary ---
Author Organization [employer] Address [address] [place] [address] Care Team Providers Care Commercial Real Estate Associate Name Role Phone Jigar Patel Primary Care Provider Encounter Details Date Type Department Care Team (Late st Contact Info) Description 02/28/2025 Telephone Gastroenterology - [address] [place] [phone] Garrett Shabazz MD [address] [place] [address] Social History Tobacco Use Types Packs/Day Years Used Date Smoking Tobacco: Some Days Cigarettes 0.3 46.9 Started: 04/13/1978 Smokeless Tobacco: Never Alcohol Use [...] Date Author No 10/21/2024 11:00 PM Cheyanne Galnido RN documented in this encounter Progress Notes * Amparo Olivas MA - 02/28/2025 9:46 AM EDT Spoke with patient and resent octreotide to [facility]. * Zehra Lyons - 02/28/2025 9:06 AM EDT PT CALLED STATING THAT HER PHARMACY DOESN'T CARRY THE OCTREOTIDE AND UNABLE TO ORDER FROM STATION DETECTIVE. documented in this encounter Plan of Treatment Upcoming Encounters Date Type Department Care Team (Late st Contact Info) Description 03/01/2025 10:30 AM EDT Appointment [facility] Ultrasound [address] [place] [address] documented as of this encounter Visit Diagnoses Not on filedocumented in this encounter Care Teams Commercial Real Estate Associate Relationship Specialty Start Date End Date Jigar Patel PA [address] [place] [phone] PCP - General 02/26/23 documented as of this encounter
--- OUTSIDE RECORDS SUMMARY | 2025-02-28 11:35 | XMS_ITS | Encounter Summary ---
Author Organization [facility] Address [address] [place] [address] Care Team Providers Care Switchboard Wire Worker Helper Name Role Phone Jigar Patel Primary Care Provider Reason for Visit * Reason Onset Date Comments Results 02/24/2025 Encounter Details Date Type Department Care Team (Late st Contact Info) Description 02/24/2025 Telephone Gastroenterology - [address] [place] [address] Amparo Olivas AL Results Social History Tobacco Use Types Packs/Day Years [...] 10/21/2024 11:00 PM Cheyanne Galindo RN * Are you blind or do [...] Progress Notes * Amparo Olivas MA - 02/24/2025 10:35 AM EDT LMOM TO LET HER KNOW THAT THE OCTREOTIDE HAS BEEN APPROVED AND THAT ALL HER LABS WERE NORMAL. * Amparo Olivas MA - 02/24/2025 10:35 AM EDT ----- Message from Emile Shabazz MD sent at 02/24/2025 10:30 AM EDT ----- Please call patient, labs are normal. ----- Message ----- From: Scarlett, Background User Sent: 02/22/2025 2:32 PM EDT To: Garrett Shabazz MD documented in this encounter Plan of Treatment Upcoming Encounters Date Type Department Care Team (Late st Contact Info) Description 03/01/2025 10:30 AM EDT Appointment [facility] Ultrasound [address] [place] [phone] documented as of this encounter Visit Diagnoses Not on filedocumented in this encounter Care Teams Switchboard Wire Worker Helper Relationship Specialty Start Date End Date Jigar Patel PA [facility] [place] [phone] PCP - General 02/26/23 documented as of this encounter
== END 2025-02-28 11:16 | disposition home or self-care (01) ==
LOC: HO.HMCH 10:18
PROVIDERS: PCP Internal Medicine; Visit Provider Physician Assistant
DX: K43.2 Incisional hernia without obstruction or gangrene (principal); I10 Essential (primary) hypertension; F11.20 Opioid dependence, uncomplicated

== ENCOUNTER → 2025-02-28 10:17 | Outpatient (BNVA) | payer OTHER, SELFPAY | PROVIDERS: PCP Internal Medicine; Visit Provider Physician Assistant | DX: K43.2 Incisional hernia without obstruction or gangrene (principal); I10 Essential (primary) hypertension; F11.20 Opioid dependence, uncomplicated | CPT/HCPCS: 96127; 99212 ==

== ENCOUNTER 2025-03-15 11:37 | Outpatient (AMB) | payer OTHER, SELFPAY ==
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
--- OUTSIDE RECORDS SUMMARY | 2025-03-15 12:50 | XMS_ITS | Data Portability ---
Author Organization [employer] [facility] [place] Address [address] [place] [address] Care Team Providers Care Swimming Pool Attendant Name Role Phone [facility] Referring Provider Assessment Encounter Date Assessment Date Assessment LastModified by Organization Details LastModified Time 11/29/2022 11/29/2022 I have reviewed and agree with the assessment and plan as documented by the fashion illustrator. I provided real-time medical direction for this [...] assessment and plan as documented by the fashion illustrator. I provided real time medical direction for this encounter and was immediately available to provide additional phone based assistance as needed. History as noted by fashion illustrator. Pt with history of multiple abdominal/bowel surgeries including prior colostomy reversal. Pt has known ventral hernia and has been evaluated at [facility] for surgical repair of the hernia. [...] since she was hoping to get to [facility] tomorrow, but is now stating that she is willing to go to the [facility] ED (since they are part of [facility]) for evaluation and possible transfer to [facility] for surgical evaluation. Paper Testing Supervisor helps to arrange ambulance transport to the [facility] ED. I call an expect to the [facility] ED charge out clerk as well. [email or web address] Not available 09/02/2023 17:22:49 Plan of Treatment Reminders Order Date Submit Date Provider Last Modified By Organization Details Last Modified Time Details Appointments None recorded. Lab None recorded. Referral None recorded. Procedures None recorded. Surgeries None recorded. Imaging None recorded. Medication Orders Moisture Barrier Ointment 0.44 %-20.6 % 2022 023 [facility], [address] [facility], [place], [address], 3 12:47:52 Patient TargetsNo targets recorded. Patient InstructionsNo instructions recorded. Reason for Referral None Reported. Medical Equipment None Reported. Allergies Allergen ID Allergen Name Allergen Category Reaction Reaction Severity Criticality Documentation Date Start Date Code Code System Note Provider Name and Address Organization Details Recorded Time 8461 Product containin g penicilli n (product) medicatio n Not available Not available Not available 08/24/2024 62515 8001 SNOMED Not Available [employer] - production [...] Details Last Updated DateTime 3 16 /min 25840.6 8 g 98 % 98 % 79 /min 144 mm[Hg] 90 mm[Hg] Not Available [employer] - production 3 13:06:43 Date Recorded Heart rate Oxygen saturation Oxygen saturation in Arterial blood by Pulse oximetry Body temperature Respiratory rate Systolic blood pressure Diastolic blood pressure Provider Name and Address Organization Details Last Updated DateTime 3 85 /min 96 % 96 % 98.4 [degF] 16 /min 154 mm[Hg] 83 mm[Hg] Not Available [employer] - production 3 20:27:00 Date Recorded Respiratory rate Heart rate Oxygen saturation Oxygen saturation in Arterial blood by Pulse oximetry Body temperature Systolic blood pressure Diastolic blood pressure Provider Name and Address Organization Details Last Updated DateTime 3 18 /min 96 /min 95 % 95 % 98.7 [degF] 130 mm[Hg] 78 mm[Hg] Not Available [employer] - production 3 15:16:46 Date Recorded Respiratory rate Oxygen saturation Oxygen saturation in Arterial blood by Pulse oximetry Body temperature Heart rate Systolic blood pressure Diastolic blood pressure Provider Name and Address Organization Details Last Updated DateTime 3 16 /min 94 % 94 % 98.5 [degF] 83 /min 152 mm[Hg] 92 mm[Hg] Not Available [employer] - [employer] 3 12:24:28 Social History None [...] Note [id number] Shelli Velez MD Main - [address] [phone] 11/29/2022 12:24:25 12/02/2022 12:22:07 Epigastric pain [id number] R10.13 [id number] Chema Quezada MD [facility] - [address] [phone] 04/25/2023 13:06:41 04/29/2023 10:15:27 Carpal tunnel syndrome [id number] G56.01 This 63-year-ol d female with previous right carpal tunnel surgery has a history of right wrist and hand pain that has been worse over the past week. The pain hasn't responded to OTC meds. I ordered Toradol 30 mg IM. She will follow-up with her regular physicians . The patient agreed with this plan. [id number] Chema Quezada MD [facility] - [address] [phone] 04/26/2023 20:26:56 04/28/2023 10:33:04 Pain in limb [id number] M79.609 This 63-year-ol d female continues to [...] option. The patient agreed with this plan. [id number] [facility] Blood [facility] [address] [place] [phone] 09/02/2023 15:16:43 09/02/2023 22:32:50 Abdominal pain [id number] R10.9 Health Concerns Section Related Observation LastModified by Organization Detai ls LastModified Time None Recorded Concern Status LastModified by Organization Details LastModified Time None Recorded Advance Directives Directive None Recorded Payers Insurance Date Sequence Insurance Name Policy Number Policy Mcguire Covered Member ID Mcguire Member ID Guarantor Name 04/25/2023 1 [facility] - DOS PRIOR TO 2023 - DUAL ELIGIBLE (MEDICARE REPLACEMENT/ADV ANTAGE - HMO) Yu Morgan [id number] Yu Morgan 05/27/2024 1 [facility] - DOS ON OR AFTER 2023 - DUAL ELIGIBLE - LONGTERM OPTIONS AND ONE CARE (MEDICARE REPLACEMENT/ADV ANTAGE - HMO) Yu Morgan [id number] Yu Morgan Notes Date Note Type Note [...] a referral, verified via . Members community SEEING EYE DOG TRAINER nurse present during time of triage. Member [...] evaluated in home. Shelli Velez MD [address] [facility], [place], [address], [employer] 11/29/2022 12:46:44 04/25/2023 text/html HPI: Yu states [...] .................. .................. .................. .................. .................. .................. ............... Paper Testing Supervisor Note From Dave Mai: pt requesting visit [...] keep F/U appt tomorrow with her doctor. Paper Testing Supervisor Allergies: Penicillin, Aspirin .................. .................. .................. .................. .................. .................. .................. ............... Disposition: Carolina Quezada MD [address] [facility],[address], [place], [phone], [employer] 04/28/2023 17:27:10 04/26/2023 text/html HPI: Member with [...] DId not further info,nessa Quezada MD [address] [facility],[address], [place], [phone], [employer] 04/26/2023 20:32:11 09/02/2023 text/html This was a supervised home visit with fashion illustrator Brenda Newton. HPI: Member reports that she is experiencing abdominal and hernia pain today. Vomiting since this morning. Sweating. Member has hx of hernia pain and is trying to go to [facility] for a urgent medical visit tomorrow. [...] related to her hernia. Member agreed to INSTED follow up while waiting for transport to be approved for hospital visit tomorrow. Member stated she will call 911 if her symptoms worsen .................. .................. .................. .................. .................. .................. .................. ............... Paper Testing Supervisor Note From Brenda Newton: Upon arrival, pt was lying in bed on her right side. A/O x4 pt color is pale/warm/dry. Pt is not in any immediate respiratory distress. Pt stated that she has extensive abdominal issues and is supposed to have surgery in [place]. Pt states she has been in 10/10 pain x 2-3 days with nausea, vomiting, and bloody stools. Pt states she wants to go to the ER but insists she gets to [facility] because they are the only ones who will transfer her to [place]. Vitals as noted. Hernia can be visualized in the abdomen. Abdomen is non rigid but extremely tender to the touch. Pt denies any CP, dizziness and/or SOB. [facility] [place] and agrees pt needs to be evaluated in ER. Pt states [facility] will find someone to [facility] and once lifeline is activated, rep stated she told responding unit that pt must be taken to [facility]. EMS BLS unit arrives on scene and states they cannot transport outside their area. [facility] is notified and asked if [facility] can transport pt to [facility]. [facility] arrives on scene to transport pt and town EMS is cleared. It is noted that pt stated she was at [facility] earlier today for blood work. Pt stated she was brought by transport but they will not do same day transports. [facility] [place] [facility] to alert of pt? s arrival. Call is then cleared. Paper Testing Supervisor Allergies: Penicillin, Aspirin .................. .................. .................. .................. .................. .................. .................. ............... Disposition: Fulfilled Christoph Blood MD [address] [facility], [place], [phone], [employer] 09/02/2023 17:23:01 OBGyn Episode No OBEpisode recorded.
--- OUTSIDE RECORDS SUMMARY | 2025-03-15 12:50 | XMS_ITS | Clinical Summary ---
Author Organization [facility] [address] [facility] Address [address] [place] [address] Phone Care Team Providers Care Referral Nurse Name Role Phone Jigar Patel Primary Care [...] BY MOUTH TWICE DAILY 56 capsule 3 10/04/20 24 Active pantoprazole (PROTONIX) 40 mg EC tablet 09/28/20 24 Active apixaban (ELIQUIS) 5 mg tablet Take 1 tablet (5 mg total) by mouth 2 (two) times a day. Active oxyCODONE (ROXICODONE) 5 mg immediate release tablet Take 1 tablet (5 mg total) by mouth every 6 (six) hours if needed for severe pain. Max Daily Amount: 20 mg 10 tablet 10/22/20 24 Active diphenoxylate-atrop ine (LOMOTIL) 2.5-0.025 mg per tabletIndications:D iarrhea following gastrointestinal surgery TAKE 2 TABLETS BY MOUTH THREE TIMES DAILY NEEDED 180 tablet 4 11/04/19 25 Active loperamide (IMODIUM) 2 mg capsule TAKE 1 CAPSULE BY MOUTH FOUR TIMES DAILY NEEDED 30 capsule 11/09/19 25 Active Additional Information Patient not taking.Reported on 01/19/2025 lidocaine (XYLOCAINE) 5 % ointmentIndications :Diarrhea following gastrointestinal surgery APPLY A SMALL AMOUNT TO AFFECTED AREA ON RECTUM 3 TIMES DAILY NEEDED 30 g 1 01/18/20 25 Active cholestyramine (QUESTRAN) 4 gram powder Take 1 packet (4 g total) by mouth 3 (three) times a day with meals. Dissolve in 8 oz of liquid and drink before a meal 90 packet 11 01/20/20 25 026 Active octreotide (SandoSTATIN LAR Depot) 20 mg suspension,extended rel reconIndications:Di arrhea following gastrointestinal surgery Inject 20 mg into the shoulder, thigh, or buttocks every 28 (twenty-eight) days for 12 doses. 1 each 02/29/20 25 026 Active loperamide (Imodium A-D) 2 mg tablet Take 1 tablet (2 mg total) by mouth 4 (four) times a day if needed for diarrhea. 360 tablet 3 11/19/19 25 025 rifAXIMin (XIFAXAN) 200 mg tablet Take 2 tablets (400 mg total) by mouth 3 (three) times a day for 14 days. 84 tablet 02/02/20 25 025 octreotide (SandoSTATIN LAR Depot) 20 mg suspension,extended rel recon Inject 20 mg into the shoulder, thigh, or buttocks every 28 (twenty-eight) days for 1 dose. 1 each 02/18/20 25 025 Discontin ued(Reord er) octreotide (SandoSTATIN LAR [place]ot) 20 mg suspension,extended rel reconIndications:Di arrhea following gastrointestinal surgery Inject 20 mg into the shoulder, thigh, or buttocks every 28 (twenty-eight) days for 12 doses. 1 each 02/22/20 025 Discontin ued(Reord er) Hospital, Clinic, or Other Facility Administered Medication Ordered Dose Route Frequency Start Date End Date Status loperamide (IMODIUM) capsule 2 mgIndications:Functio nal diarrhea 2 mg oral 4 times daily PRN 10/26/2024 Activ e Active Problems Problem Noted Date Diagnosed Date Functional diarrhea 10/26/2024 Ventral hernia 10/22/2024 Incisional hernia, without obstruction or gangre ne 05/17/2022 COPD (chronic obstructive pu lmonary disease) ([facility] V24, [facility] V28) 01/11/2019 KALE (obstructive sleep apnea) 01/11/2019 Overview (08/31/2024): SMS Home Polysomnogram: Date 02/04/2019; Wt 235#; VICKY [...] Encounters Date Type Department Care Team Description 03/14/2025 11:45 AM EDT Clinical Support Gastroenterology - [address] [phone] Functional diarrhea (Primary Dx) 03/02/2025 Telephone Gastroenterology - [address] [facility] [address] [facility] [address] [place] [phone] Garrett Shabazz MD 03/01/2025 10:08 AM EDT - 03/01/2025 11:59 PM EDT Hospital Encounter [facility] Ultrasound [address] [place] [address] Abnormal LFTs Discharge Disposition: Home or Self Care 03/01/2025 Telephone Gastroenterology - [address] [place] [phone] Amparo Olivas MA Results 02/28/2025 Telephone Gastroenterology - [address] [place] [phone] Garrett Shabazz MD 02/24/2025 Telephone Gastroenterology - [address] [place] [phone] Amparo Olivas MA Results 02/21/2025 Telephone Gastroenterology - [address] [place] [phone] Garrett Shabazz MD 02/18/2025 Telephone Gastroenterology - [address] [place] [phone] Eileen Smith MA 02/17/2025 10:30 AM EDT Office Visit Gastroenterology - [address] [place] [phone] Garrett Shabazz MD Diarrhea, unspecified type (Primary Dx) 02/10/2025 Telephone Gastroenterology - [address] [place] [phone] Amparo Olivas MA Results 02/10/2025 Telephone Gastroenterology - [address] [place] [phone] Amparo Olivas MA Results 02/04/2025 Telephone Gastroenterology - [address] [place] [phone] Garrett Shabazz MD 02/01/2025 Telephone Gastroenterology - [address] [place] [phone] Garrett Shabazz MD medical problem 01/19/2025 11:00 AM EDT Office Visit Gastroenterology - [address] [place] [address] Garrett Shabazz MD Diarrhea, unspecified type (Primary Dx); Functional diarrhea; Incisional hernia, without obstruction or gangrene; Ventral hernia without obstruction or gangrene from Last 3 Months Surgical History Surgery Date Site/Laterality Comments HERNIA REPAIR PROCEDURE: OK REPAIR FIRST ABDOMINAL WALL HERNIA OTHER SURGICAL HISTORY 02/20/2022 PROCEDURE: ---- OTHER ----; COMMENT: laparoscopic parastomal hernia repair PARASTOMAL HERNIA REPAIR CHOLECYSTECTOMY COLONOSCOPY COLON SURGERY Medical History Medical History Date Comments COPD (chronic obstructive pulmonary disease) (CM S/HCC V24, CMS/HCC V28) Hypertension Hypothyroidism KALE (obstructive sleep apnea) Depression Family History Medical History Relation Name Comments Colon cancer Paternal Grandmother Relation Name Status Comments Paternal Grandmother Social History Tobacco Use Types Packs/Day Years Used Date Smoking Tobacco: Some Days Cigarettes 0.2 46.9 Started: 04/13/1978 Smokeless Tobacco: Never Tobacco Cessation:Ready [...] - - Weight 88.9 kg (196 lb) 02/17/2025 10:16 AM EDT Height 157.5 cm (5' 2 ) 02/17/2025 10:16 AM EDT Body Mass Index 35.85 02/17/2025 10:16 AM EDT Plan of Treatment Health Maintenance Due Date [...] 2022 Depression Screening 09/29/2022 HIV Screening 09/29/2022 Medicare Annual Wellness Visit 09/29/2022 Social Influencers of Health Screening 09/29/2022 COVID-19 Vaccine ( season) 2024 09/24/2021, 01/11/2021, 12/01/2020 Influenza Vaccine (Season Ended) 2025 07/16/2020, 07/12/2011, 08/07/2010, Additional history exists Hypertension/CHF/CAD Annual BMP Blood Test 01/19/2026 01/19/2025, 10/21/2024, 10/24/2023, Additional history exists Cholesterol Screening (Lipid Panel) 10/01/2028 10/01/2023, 10/01/2023 Colorectal Cancer Screening: Colonoscopy 11/08/2034 11/08/2024, 02/05/2024 Hepatitis C Screening Completed 02/14/2025 HIB Vaccines Aged Out No longer eligi [...] age to complete this topic Meningococcal B Vaccine Aged Out No l onger eligible based on patient's age to complete this topic RSV Immunization Patients Under 20 months Aged Out No longer eligible based on patient's age to complete this topic Varicella Vaccines Aged Out No longer eligible based on patient's age to complete this topic Procedures Procedure Name Priority Date/Time Associated Diagnosis Comments US ABDOMEN LIMITED Routine 03/01/2025 10 :34 AM EDT Abnormal LFTs VASOACTIVE INTESTINAL PEPTIDE Routine 02/18/2025 10:37 AM EDT Diarrhea, unspecified type CALCITONIN Routine 02/18/2025 10:37 AM EDT Diarrhea, unspecified type GASTRIN Routine 02/18/2025 10:37 AM EDT Diarrhea, unspecified type ANTIMITOCHONDRIAL ANTIBODY Routine 02/14/2025 9:42 AM EDT Abnormal LFTs HEPATITIS B CORE ANTIBODY, TOTAL Routine 02/14/2025 9:42 AM EDT Abnormal LFTs SMOOTH MUSCLE ANTIBODY IGG Routine 02/14/2025 9:42 AM EDT Abnormal LFTs DANITZA IFA WITH TITER AND PATTERN Routine 02/14/2025 9:42 AM EDT Abnormal LFTs HEPATITIS C ANTIBODY Routine 02/14/2025 9:42 AM EDT Abnormal blood chemistry HEPATITIS B SURFACE ANTIGEN WITH CONFIRMATION Routine 02/14/2025 9:42 AM EDT Abnormal blood chemistry GAMMA GLUTAMYL TRANSFERASE Routine 02/09/2025 9:57 AM EDT Abnormal LFTs FAT FECAL, QUALITATIVE Routine 9:43 AM EDT Diarrhea, unspecified type CALPROTECTIN, STOOL Routine 02/09/2025 9 :43 AM EDT Diarrhea, unspecified type CLOSTRIDIUM DIFFICILE TOXIN Routine 02/09/2025 9:43 AM EDT Diarrhea, unspecified type GASTROINTESTINAL PATHOGENS BY PCR Routine 02/09/2025 9:43 AM EDT Diarrhea, unspecified type ELECTROLYTES, STOOL Routine 01/20/2025 9 :51 AM EDT Diarrhea COMPREHENSIVE METABOLIC PANEL Routine 01/19/2025 10:59 AM EDT Diarrhea, unspecified type COLONOSCOPY Routine 11/08/2024 8:55 AM EST History of colon polyps LIPID PANEL Routine 10/01/2023 from Last 3 Months or Most Recently Relevant to Health Maintenance Results * US Abdomen Limited (03/01/2025 10:34 AM EDT) Anatomical Region Laterality Modality Body Ultrasound 03/01/2025 2:07 PM EDT Impressions 03/01/2025 2:08 PM EDT Limited study secondary to patient habitus. Mild hepatic steatosis. Cholecystectomy. -------- FINAL REPORT -------- Dictated By: Momo Salguero Dictated Date: 03/01/2025 14:07 ET Assigned Physician: Momo Salguero Reviewed and Electronically Signed By: Momo Salguero Signed Date: 03/01/2025 14:08 ET Workstation ID: [id number] Transcribed By: Self Edit Transcribed Date: 03/01/2025 14:07 ET Narrative 03/01/2025 2:08 PM EDT PROCEDURE: Right upper quadrant ultrasound. HISTORY: abnormal hepatic function tests. COMPARISON: CT 10/21/2024. TECHNIQUE: Grayscale, color Doppler, and spectral Doppler ultrasound evaluation of the right upper quadrant of the abdomen. FINDINGS: Limited study secondary to patient habitus. LIVER: Mildly echogenic parenchyma. ??No focal lesion. ??Normal flow in the main portal vein. BILIARY: Cholecystectomy. PANCREAS: Not visualized. RIGHT KIDNEY: Normal size and echotexture. ??No hydronephrosis or focal lesion. Procedure Note Momo Salguero MD - 03/01/2025 PROCEDURE: Right upper quadrant ultrasound. HISTORY: abnormal hepatic function tests. COMPARISON: CT 10/21/2024. TECHNIQUE: Grayscale, color Doppler, and spectral Doppler ultrasoundevaluation of the right upper quadrant of the abdomen. FINDINGS: Limited study secondary to patient habitus. LIVER: Mildly echogenic parenchyma. No focal lesion. Normal flow in themain portal vein. BILIARY: Cholecystectomy. PANCREAS: Not visualized. RIGHT KIDNEY: Normal size and echotexture. No hydronephrosis or focallesion. IMPRESSION: Limited study secondary to patient habitus. Mild hepatic steatosis. Cholecystectomy. -------- FINAL REPORT -------- Dictated By: Momo Salguero Dictated Date: 03/01/2025 14:07 ET Assigned Physician: Momo Salguero Reviewed and Electronically Signed By: Momo Salguero Signed Date: 03/01/2025 14:08 ET Workstation ID: [id number] Transcribed By: Self Edit Transcribed Date: 03/01/2025 14:07 ET Garrett Shabazz MD [facility] PROCEDURES Final Result * Vasoactive intestinal peptide (02/18/2025 10:37 AM EDT) Vasoactive Intestinal Polypeptide (VIP) SEE BELOW 02/24/2025 10:01 AM EDT [facility] Comment: Test ?Result Flag ??Ref Range/Cutoff Vasoactive Intestinal Peptide (VIP) (Plasma/G.I. Tube) VIP (Plasma) ?19 ? <36 pg/mL Notes: ??This test has not been cleared or approved by the ?[place] Food and Drug Administration. This test was developed and its performance characteristics determined by [facility]. Values obtained with different methods, laboratories, or kits cannot be used interchangeably with the results on this report. The results cannot be interpreted as absolute evidence of the presence or absence of malignant disease. ? Test(s) performed at [facility] [address] [place] [address] PHARMACY ORDER ENTRY TECHNICIAN: Torito Cameron MD, PhD Blood Venous blood specimen / Unknown Venipuncture / Unknown 02/18/2025 10:37 AM EDT 02/18/2025 11:15 AM EDT Garrett Shabazz MD LAB BLOOD ORDERABLES Final Resu lt [facility] [address] [place] [address] * Calcitonin (02/18/2025 10:37 AM EDT) Pathologist [facility] [place] Calcitonin <2 <12 pg/mL 02/22/2025 2:32 PM EDT [facility] Comment: The Siemens Careland Immulite 2000 chemiluminescent immunoassay is used. Results obtained with different assay methods or kits cannot be used interchangeably. Results cannot be interpreted as absolute evidence of the presence or absence of malignant disease. Test performed at [facility], [address] [place] [place], [place] ? [phone] Lacey Cabrera MD, PhD - Director [employer] Blood Venous blood specimen / Unknown Venipuncture / Unknown 02/18/2025 10:37 AM EDT 02/18/2025 11:12 AM EDT us Garrett Shabazz MD LAB BLOOD ORDERABLES Final Resu lt [facility] [address] [place] [address] * Gastrin (02/18/2025 10:37 AM EDT) Pathologist [facility] [place] Gastrin 54 13 - 115 pg/mL 02/22/2025 2:32 PM EDT [facility] Comment: The Siemens Careland Immulite 2000 chemiluminescent immunoassay is used. Results obtained with different assay methods or kits cannot be used interchangeably. Results cannot be interpreted as absolute evidence of the presence or absence of malignant disease. Test performed at [facility], [address] , [place], [place] ??[address] ? [phone] Lacey Cabrera MD, PhD - Director [employer] Blood Venous blood specimen / Unknown Venipuncture / Unknown 02/18/2025 10:37 AM EDT 02/18/2025 11:12 AM EDT Garrett Shabazz MD LAB BLOOD ORDERABLES Final Resu lt [facility] [address] [place] [address] * Hepatitis C antibody (02/14/2025 9:42 AM EDT) Hepatitis C Antibody Negative Negative LAB CHEMISTRY METHOD 02/14/2025 2:19 PM EDT [facility] Blood Venous blood specimen / Unknown Venipuncture / Unknown 02/14/2025 9:42 AM EDT 02/14/2025 10:11 AM EDT Garrett Shabazz MD LAB BLOOD ORDERABLES Final Resu lt [facility] [address] [place] [address], * Hepatitis B surface antigen with reflex to confirmation (02/14/2025 9:42 AM EDT) Hepatitis B Surface Ag Negative Negative LAB CHEMISTRY METHOD 02/14/2025 1:51 PM EDT [facility] Blood Venous blood specimen / Unknown Venipuncture / Unknown 02/14/2025 9:42 AM EDT 02/14/2025 10:11 AM EDT Narrative [facility] - 02/14/2025 1:51 PM EDT Over the counter supplements containing high doses of biotin may interfere with this assay. ??If interference is suspected, patients shoud be retested after refraining from biotin supplements for 72 hours. us Garrett Shabazz MD LAB BLOOD ORDERABLES Final Resu lt Performing Organization Address [facility]/ZIP Co de Phone Number [facility] [address] [place] [address], [place] [phone] * DANITZA IFA with titer and pattern (02/14/2025 9:42 AM EDT) DANITZA Negative Negative 02/15/2025 12:55 PM EDT [facility] Blood Venous blood specimen / Unknown Venipuncture / Unknown 02/14/2025 9:42 AM EDT 02/14/2025 10:11 AM EDT us Garrett Shabazz MD LAB BLOOD ORDERABLES Final Resu lt Performing Organization Address [facility] Co de Phone Number [facility] [address] [place] [address], [place] [phone] * Smooth muscle antibody IgG (02/14/2025 9:42 AM EDT) Pathologist [facility] [place] Smooth Muscle (F-Actin) IgG Ab 4 <20 UNITS 02/16/2025 11:31 AM EDT [facility] Comment: Interpretation: Negative Test performed at [facility], [address] , [place], [place] ??[address] ? [phone] Lacey Cabrera MD, PhD - Director [employer] Blood Venous blood specimen / Unknown Venipuncture / Unknown 02/14/2025 9:42 AM EDT 02/14/2025 10:11 AM EDT us Garrett Shabazz MD LAB BLOOD ORDERABLES Final Resu lt Performing Organization Address City/[facility]/ZIP Co de Phone Number [facility] [address] [place] [address] * Hepatitis B core antibody, total (02/14/2025 9:42 AM EDT) Pathologist [facility] [place] Hep B Core Total Ab Negative Negative LAB CHEMISTRY METHOD 02/14/2025 2:20 PM EDT [facility] Blood Venous blood specimen / Unknown Venipuncture / Unknown 02/14/2025 9:42 AM EDT 02/14/2025 10:11 AM EDT us Garrett Shabazz MD LAB BLOOD ORDERABLES Final Resu lt [facility] [address] [place] [address], [place] [phone] * Antimitochondrial antibody (02/14/2025 9:42 AM EDT) [facility] Mitochondrial Antibody Quantitative 1.4 <=20.0 units LAB CHEMISTRY METHOD 02/16/2025 12:51 PM EDT [facility] Mitochondrial Antibody Qualitative Negative Negative LAB CHEMISTRY METHOD 02/16/2025 12:51 PM EDT [facility] Blood Venous blood specimen / Unknown Venipuncture / Unknown 02/14/2025 9:42 AM EDT 02/14/2025 10:11 AM EDT us Garrett Shabazz MD LAB BLOOD ORDERABLES Final Resu lt [facility] [address] [place] [address], [place] [phone] * (ABNORMAL) GGT (02/09/2025 9:57 AM EDT) [facility] GGT 92(H) 7 - 64 unit/L LAB CHEMISTRY METHOD 02/09/2025 5:07 PM EDT [facility] Blood Venous blood specimen / Unknown Venipuncture / Unknown 02/09/2025 9:57 AM EDT 02/09/2025 11:30 AM EDT Garrett Shabazz MD LAB BLOOD ORDERABLES Final Resu lt [facility] [address] [place] [address], * Gastrointestinal pathogens molecular study (02/09/2025 9:43 AM EDT) Campylobacter Detection by PCR Not Detected Not Detected LAB MICROBIOLOGY METHOD 5 12:58 PM EDT [facility] Plesiomonas shigelloides Detection by PCR Not Detected Not Detected LAB MICROBIOLOGY METHOD 5 12:58 PM EDT [facility] Salmonella Detection by PCR Not Detected Not Detected LAB MICROBIOLOGY METHOD 5 12:58 PM EDT [facility] Vibrio Detection by PCR Not Detected Not Detected LAB MICROBIOLOGY METHOD 5 12:58 PM EDT [facility] Vibrio cholerae Detection by PCR Not Detected Not Detected LAB MICROBIOLOGY METHOD 5 12:58 PM EDT [facility] Yersinia enterocolitica Detection by PCR Not Detected Not Detected LAB MICROBIOLOGY METHOD 5 12:58 PM EDT [facility] Enteroaggregative E coli EAEC Detection by PCR Not Detected Not Detected LAB MICROBIOLOGY METHOD 5 12:58 PM EDT [facility] Enteropathogenic E coli EPEC Detection Not Detected Not Detected LAB MICROBIOLOGY METHOD 5 12:58 PM EDT [facility] Enterotoxigenic E coli ETEC LTST Detection Not Detected Not Detected LAB MICROBIOLOGY METHOD 5 12:58 PM EDT [facility] Shiga-like toxin producing E coli STEC STX1 STX2 Det Not Detected Not Detected LAB [facility]CROBIOLOGY [facility] 5 12:[facility] Shigella Enteroinvasive E coli EIEC Detection Not Detected Not Detected LAB MICROBIOLOGY METHOD 5 12:58 PM EDT [facility] Cryptosporidium Detection by PCR Not Detected Not Detected LAB MICROBIOLOGY METHOD 5 12:58 PM EDT [facility] Cyclospora cayetanensis Detection by PCR Not Detected Not Detected LAB MICROBIOLOGY METHOD 5 12:58 PM EDT [facility] Entamoeba histolytica Detection by PCR Not Detected Not Detected LAB MICROBIOLOGY METHOD 5 12:58 PM EDT [facility] Giardia lamblia Detection by PCR Not Detected Not Detected LAB MICROBIOLOGY METHOD 5 12:58 PM [facility] Adenovirus F 40 41 Detection by PCR Not Detected Not Detected LAB MICROBIOLOGY METHOD 5 12:58 [facility] Astrovirus Detection by PCR Not Detected Not Detected LAB MICROBIOLOGY METHOD 5 12:58 PM EDT [facility] Norovirus GI GII Detection by PCR Not Detected LAB MICROBIOLOGY METHOD 5 12:58 PM EDT [facility] Sapovirus Detection by PCR Not Detected Not Detected LAB MICROBIOLOGY METHOD 5 12:58 PM [facility] Rotavirus A Detection by PCR Not Detected Not Detected LAB MICROBIOLOGY METHOD 5 12:58 PM EDT [facility] Stool Rectum structure / Unknown Non-blood Collection / Unknown 02/09/2025 9:43 AM EDT 02/09/2025 11:[address] [facility] - 02/09/2025 12:58 PM EDT PCR testing is much more sensitive than traditional techniques and allows for the detection of low numbers of stool pathogens. The clinical correlation of PCR results with the need for treatment and clinical outcomes has not been established. Therefore the results of PCR testing for stool pathogens must be taken into clinical context when making treatment decisions. This is a diagnostic test only, repeat testing for cure is not advised. You may consider infectious disease consult for additional guidance. ??Testing Performed by [facility] Estef[facility] [employer] [facility] [employer] [facility] MICROBIOLOGY - GENERAL OR DERABLES Final Result Performing Organization Address City/[facility]/ZIP Co de Phone Number [facility] [address] [place] [address], [place] [phone] * Calprotectin, stool (02/09/2025 9:43 AM EDT) Calprotectin, Fecal <5.0 <50 mcg/g 02/11/2025 2:51 PM EDT [facility] Comment: <50 mcg/g ?Normal 50 - 120 mcg/g ?? Borderline >120 mcg/g ? Abnormal Borderline results suggest repeat testing in 4 to 6 weeks. Test performed at [facility], [address] [place], [place] ??[address] ? [phone] Lacey Cabrera MD, PhD - Director [employer] Stool Rectum structure / Unknown Non-blood Collection / Unknown 02/09/2025 9:43 AM EDT 02/09/2025 11:24 AM EDT Estef[facility] [employer] [facility] BODY FLUIDS AND STOOLS OR DERABLES Final Result Performing Organization Address City/[facility]/ZIP Co de Phone Number [facility] [address] [place] [address] * Fecal fat, qualitative (02/09/2025 9:43 AM EDT) Fecal Fat Qualitative NORMAL NORMAL 02/14/2025 7:38 PM EDT [facility] Comment: Test Performed at: [facility] [address] [place] [address] ??[phone] ? I Ana MANZANO, PhD, [place] Stool Rectum structure / Unknown Non-blood Collection / Unknown 02/09/2025 9:43 AM EDT 02/09/2025 11:24 AM EDT Estefania Kraus NP LAB BODY FLUIDS AND STOOLS OR DERABLES Final Result [facility] [address] [place] [address] * Clostridium difficile toxin (02/09/2025 9:43 AM EDT) Clostridium difficile GDH Antigen Negative Negative 02/09/2025 12:23 PM EDT [facility] C difficile Toxins A+B, EIA Negative Negative 02/09/2025 12:23 PM EDT [facility] Comment:NEGATIVE FOR TOXIN P RODUCING CLOSTRIDIOIDES DIFFICILE, NO ADDITIONAL TESTING IS NECESSARY. Stool Rectum structure / Unknown Non-blood Collection / Unknown 02/09/2025 9:43 AM EDT 02/09/2025 11:24 AM EDT Estefania Kraus NP LAB MICROBIOLOGY - GENERAL OR DERABLES Final Result Performing Organization Address City/[facility]/ZIP Co de Phone Number [facility] [address] [place] [address], * Electrolytes, stool (01/20/2025 9:51 AM EDT) Sodium, Stool 81 mmol/L 01/25/2025 7:08 PM EDT [facility] Comment: INTERPRETIVE INFORMATION: Fecal Sodium A reference interval has not been established for fecal specimens. This test was developed and its performance characteristics determined by [facility]. It has not been cleared or approved by the [place] Food and Drug Administration. This test was performed in a CLIA certified laboratory and is intended for clinical purposes. Potassium, Stool 39 mmol/L 01/26/20 7:08 PM EDT [facility] Comment: INTERPRETIVE INFORMATION: Fecal Potassium A reference interval has not been established for fecal specimens. This test was developed and its performance characteristics determined by [facility]. It has not been cleared or approved by the [place] Food and Drug Administration. This test was performed in a CLIA certified laboratory and is intended for clinical purposes. Chloride, Stool 20 mmol/L 7:08 PM EDT [facility] Comment: INTERPRETIVE INFORMATION: Fecal Chloride A reference interval has not been established for fecal specimens. This test was developed and its performance characteristics determined by [facility]. It has not been cleared or approved by the [place] Food and Drug Administration. This test was performed in a CLIA certified laboratory and is intended for clinical purposes. Performed By: [facility] [address] [place] [id number] Mon[address] Carver: Latrell Felton MD, PhD CLIA Number: [id number] Stool Rectum structure / Unknown Non-blood Collection / Unknown 01/20/2025 9:51 AM EDT 01/20/2025 10:41 AM EDT Garrett Shabazz MD LAB BODY FLUIDS AND STOOLS CIPRIANO BUCHANAN Final Result [facility] [address] [place] [address] * (ABNORMAL) Comprehensive metabolic panel (01/19/2025 10:59 AM EDT) Sodium 128(L) 133 - 145 mmol/L LAB CHEMISTRY METHOD 01/19/2025 2:51 PM EDT [facility] Potassium 3.4(L) 3.5 - 5.5 mmol/L LAB CHEMISTRY METHOD 01/19/2025 2:51 PM EDT [facility] Chloride 91(L) 96 - 110 mmol/L LAB CHEMISTRY METHOD 01/19/2025 2:51 PM EDT [facility] CO2 33(H) 21 - 32 mmol/L LAB CHEMISTRY METHOD 01/19/2025 2:51 PM EDT [facility] Anion Gap 4 3 - 11 LAB CHEMISTRY METHOD 01/19/2025 2:51 PM EDT [facility] Glucose 78 70 - 100 mg/dL LAB CHEMISTRY METHOD 01/19/2025 2:51 PM [facility] BUN 3(L) 5 - 25 mg/dL LAB CHEMISTRY METHOD 01/19/2025 2:51 PM [facility] Creatinine 0.60 0.50 - 1.10 mg/dL LAB CHEMISTRY METHOD 01/19/2025 2:51 PM [facility] eGFR 102 >=60 mL/min/1. 73m2 LAB CHEMISTRY METHOD 01/19/2025 2:51 PM [facility] Comment:Calculation based on the??Chronic Kidney Disease Epidemiology Collaboration (CKD-EPI) equation refit??without adjustment for race. BUN/Creatinine Ratio 5.0 LAB CHEMISTRY METHOD 01/19/2025 2:51 PM [facility] Calcium 9.0 8.5 - 10.5 mg/dL LAB CHEMISTRY METHOD 01/19/2025 2:51 PM [facility] AST (SGOT) 18 10 - 42 unit/L LAB CHEMISTRY METHOD 01/19/2025 2:51 PM [facility] ALT (SGPT) 25 10 - 60 unit/L LAB CHEMISTRY METHOD 01/19/2025 2:51 PM [facility] Alkaline Phosphatase 133(H) 42 - 121 unit/L LAB CHEMISTRY METHOD 01/19/2025 2:51 PM [facility] Total Protein 6.7 6.0 - 8.0 g/dL LAB CHEMISTRY METHOD 01/19/2025 2:51 PM [facility] Albumin 3.7 3.2 - 5.0 g/dL LAB CHEMISTRY METHOD 01/19/2025 2:51 PM [facility] Total Bilirubin 0.5 0.0 - 1.4 mg/dL LAB CHEMISTRY METHOD 01/19/2025 2:51 PM [facility] Blood Venous blood specimen / Unknown Venipuncture / Unknown 01/19/2025 10:59 AM EDT 01/19/2025 11:33 AM EDT us Garrett Shabazz MD LAB BLOOD ORDERABLES Final Resu lt [facility] [address] [place] [address], [place] [phone] * COLONOSCOPY Anesthesia - MAC; [facility] Name: Yu Dumont Procedure Date: 11/08/2024 8:40 AM Date of [...] Procedure Code(s): ? --- Professional --- ? 73246, Colonoscopy, flexible; with biopsy, single or ? multiple CPT copyright 2020 [employer]. All rights reserved. The codes documented in this report are preliminary and upon test tube maker review may be revised to meet current compliance requirements. MD Garrett Do MD 11/08/2024 8:59:29 AM This report has been signed electronically.Garrett Shabazz MD Number of Addenda: 0 Note Initiated On: 11/08/2024 8:40 AM Scope In: Scope Out: ? [facility] - [address] [place] [address], ? [place] [id number] Procedure Note Garrett Shabazz MD - 11/08/2024 [facility] Patient Name: Yu Dumont Procedure Date: 11/08/2024 8:40 AM Date of [...] Findings: There was evidence of a prior nti-lt-gahgzed-colonic anastomosis in the sigmoid colon. This was patentand was characterized by healthy appearing mucosa. The anastomosis was traversed. The exam was otherwise without abnormality ondirect and retroflexion views. Clara-anal excoriationsnoted. Biopsies were taken with a cold forceps in therectum, in the sigmoid colon and in the distal ileum for histology. Procedure Code(s): --- Professional --- 55225, Colonoscopy, flexible; with biopsy, singleor multiple CPT copyright 2020 [employer]. All rights reserved. The codes documented in this report are preliminary and upon test tube maker reviewmay be revised to meet current compliance requirements. MD Garrett Do MD 11/08/2024 8:59:29 AM This report has been signed electronically.Garrett Shabazz MD Number of Addenda: 0 Note Initiated On: 11/08/2024 8:40 AM Scope In: Scope Out: [facility] - [address] [place] [id number] IMPRESSION: - Patent end-to-end ileo-colonic anastomosis, characterized [...] MD GI~PROCEDURE ORDERABLES Final R esult * Lipid panel (10/01/2023) LDL/HDL Ratio 0 Comment:No Interpretation, A bstracted Triglycerides 0 mg/dL Comment:No Interpretation, A bstracted Cholesterol 0 mg/dL Comment:No Interpretation, A bstracted HDL 0 mg/dL Comment:No Interpretation, A bstracted LDL Cholesterol 0 mg/dL Comment:No Interpretation, A bstracted Blood Venous blood specimen / Unknown Historical Provider LAB BLOOD ORDERABLES Mignon l Result from Last 3 Months or Most Recently Relevant to Health [place] [address] [facility] MEDICARE Member Subscriber Plan / Payer (Ef fective 2019-Present) Name:YU DUMONT Relation to Subscriber:Self Name:Yu Dorian Payer ID:[id number] Group ID:[id number] Type:Not on file Address: [address] [place] [id number] Advance Directives Documents on File Type Date Recorded 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 Care Teams Referral Nurse Relationship Specialty Start Date End Date Jigar Patel PA [address] [place] [phone] PCP - General 02/26/23
--- OUTSIDE RECORDS SUMMARY | 2025-03-15 12:50 | XMS_ITS | Encounter Summary ---
[facility] [address] [place] [address] Care Team Providers Care Rolling Mill Operator Helper Name Role Phone Jigar Patel Primary Care Provider Encounter Details Date Type Department Care Team (Latest Contact Info) Description 03/14/2025 11:45 AM EDT Clinical Support Gastroenterology - [address] [place] [address] Functional diarrhea (Primary Dx) Social History Tobacco Use Types Packs/Day Years Used Date Smoking Tobacco: Some Days Cigarettes 0.2 46.9 Started: 04/13/1978 Smokeless Tobacco: Never Alcohol [...] documented in this encounter Progress Notes * Estefania Kraus NP - 03/14/2025 11:45 AM EDT Sandostatin LAR Dep[place] 20 mg IM given Lot [id number] Exp 05/2027 documented in this encounter Plan of Treatment Not on file documented as of this encounter Visit Diagnoses Diagnosis Functional diarrhea- Primary documented in this encounter Care Teams Rolling Mill Operator Helper Relationship Specialty [place] [address] [place] [id number] PCP - General 02/26/23 documented as of this encounter
== END 2025-03-15 11:38 | disposition home or self-care (01) ==
LOC: HO.HOP 11:37
PROVIDERS: PCP Internal Medicine; Visit Provider Clinical Nurse Specialist Psychiatric/Mental Health
DX: F33.9 Major depressive disorder, recurrent, unspecified (principal); F60.3 Borderline personality disorder; F41.1 Generalized anxiety disorder; F41.0 Panic disorder [episodic paroxysmal anxiety]
CPT/HCPCS: 99214

== ENCOUNTER → 2025-03-15 11:37 | Outpatient (BNVA) | payer OTHER, SELFPAY | PROVIDERS: PCP Internal Medicine; Visit Provider Clinical Nurse Specialist Psychiatric/Mental Health | DX: K56.609 Unspecified intestinal obstruction, unspecified as to partial versus complete obstruction (principal); R19.7 Diarrhea, unspecified; F33.9 Major depressive disorder, recurrent, unspecified; F60.3 Borderline personality disorder; F41.1 Generalized anxiety disorder; F41.0 Panic disorder [episodic paroxysmal anxiety] ==

== ENCOUNTER 2025-03-28 14:26 | Outpatient (AMB) | payer OTHER, SELFPAY ==
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
--- OUTSIDE RECORDS SUMMARY | 2025-03-28 15:40 | XMS_ITS | Data Portability ---
Author Organization Dress Code, [facility] Address [address] [place] [address] Care Team Providers Care Netsuite Consultant Name Role Phone [facility] Referring Provider Assessment Encounter Date Assessment Date Assessment LastModified by Organization Details LastModified Time 11/29/2022 11/29/2022 I have reviewed and agree with the assessment and plan as documented by the tool shaper set up operator. I provided real-time medical direction for this [...] assessment and plan as documented by the tool shaper set up operator. I provided real time medical direction for this encounter and was immediately available to provide additional phone based assistance as needed. History as noted by tool shaper set up operator. Pt with history of multiple abdominal/bowel surgeries including prior colostomy reversal. Pt has known ventral hernia and has been evaluated at [facility] for surgical repair of the hernia. [...] since she was hoping to get to [facility] tomorrow, but is now stating that she is willing to go to the [facility] ED (since they are part of [facility]) for evaluation and possible transfer to [facility] for surgical evaluation. Telephone Switchboard Operator helps to arrange ambulance transport to the [facility] ED. I call an expect to the [facility] ED transmitter engineer in charge as well. [email or web address] Not available 09/02/2023 17:22:49 Plan of Treatment Reminders Order Date Submit Date Provider Last Modified By Organization Details Last Modified Time Details Appointments None recorded. Lab None recorded. Referral None recorded. Procedures None recorded. Surgeries None recorded. Imaging None recorded. Medication Orders Moisture Barrier Ointment 0.44 %-20.6 % 2022 023 [facility], [address] [facility], [place], [address], 3 12:47:52 Patient TargetsNo targets recorded. Patient InstructionsNo instructions recorded. Reason for Referral None Reported. Medical Equipment None Reported. Allergies Allergen ID Allergen Name Allergen Category Reaction Reaction Severity Criticality Documentation Date Start Date Code Code System Note Provider Name and Address Organization Details Recorded Time 8461 Product containin g penicilli n (product) medicatio n Not available Not available Not available 08/24/2024 08317 8001 SNOMED Not Available [facility] - production [...] ot Available Vitals Date Recorded Respiratory rate Oxygen saturation Oxygen saturation in Arterial blood by Pulse oximetry Body temperature Heart rate Systolic blood pressure Diastolic blood pressure Provider Name and Address Organization Details Last Updated DateTime 3 16 /min 94 % 94 % 98.5 [degF] 83 /min 152 mm[Hg] 92 mm[Hg] Not Available Next [facility] - production 3 12:24:28 Date Recorded Respiratory rate Body weight Oxygen saturation Oxygen saturation in Arterial blood by Pulse oximetry Heart rate Systolic blood pressure Diastolic blood pressure Provider Name and Address Organization Details Last Updated DateTime 3 16 /min 61820.6 8 g 98 % 98 % 79 /min 144 mm[Hg] 90 mm[Hg] Not Available [facility] [employer] [facility] - production 3 13:06:43 Date Recorded Heart rate Oxygen saturation Oxygen saturation in Arterial blood by Pulse oximetry Body temperature Respiratory rate Systolic blood pressure Diastolic blood pressure Provider Name and Address Organization Details Last Updated DateTime 3 85 /min 96 % 96 % 98.4 [degF] 16 /min 154 mm[Hg] 83 mm[Hg] Not Available [facility] [employer] [facility] - production 3 20:27:00 Date Recorded Respiratory rate Heart rate Oxygen saturation Oxygen saturation in Arterial blood by Pulse oximetry Body temperature Systolic blood pressure Diastolic blood pressure Provider Name and Address Organization Details Last Updated DateTime 3 18 /min 96 /min 95 % 95 % 98.7 [degF] 130 mm[Hg] 78 mm[Hg] Not Available Next [facility] - production 3 15:16:46 Social History None recorded. Functional Status None recorded. Mental Status None recorded. Family History Nothing Reported. Medical History No medical history recorded. Gynecological HistoryNo gynecological history recorded. Obstetrics History GPAL:G 0 P 0 0 0 0 Past Encounters Encounter ID Performer Location Encounter Start Date Encounter Closed Date Diagnosis/Indication Diagnosis SNOMED-CT Code Diagnosis ICD10 Code Diagnosis Note [id number] Shelli Velez MD Main - [address] [phone] 11/29/2022 12:24:25 12/02/2022 12:22:07 Epigastric pain 19704513 R10.13 [id number] Chema Quezada MD [facility] - [address] [id number] 04/25/2023 13:06:41 04/29/2023 10:15:27 Carpal tunnel syndrome 80872021 G56.01 This 63-year-ol d female with previous right carpal tunnel surgery has a history of right wrist and hand pain that has been worse over the past week. The pain hasn't responded to OTC meds. I ordered Toradol 30 mg IM. She will follow-up with her regular physicians . The patient agreed with this plan. [id number] Chema Quezada MD [facility] - [address] [id number] 04/26/2023 20:26:56 04/28/2023 10:33:04 Pain in limb [id number] M79.609 This 63-year-ol d female continues to [...] option. The patient agreed with this plan. [id number] [facility] [address] [place] [id number] 09/02/2023 15:16:43 09/02/2023 22:32:50 Abdominal pain 07201367 R10.9 Health Concerns Section Related Observation LastModified by Organization Detai ls LastModified Time None Recorded Concern Status LastModified by Organization Details LastModified Time None Recorded Advance Directives Directive None Recorded Payers Insurance Date Sequence Insurance Name Policy Number Policy Mcguire Covered Member ID Mcguire Member ID Guarantor Name 04/25/2023 1 [facility] - DOS PRIOR TO 2023 - DUAL ELIGIBLE (MEDICARE REPLACEMENT/ADV ANTAGE - HMO) Yu Morgan [id number] Yu Morgan 05/27/2024 1 [facility] - DOS ON OR AFTER 2023 - DUAL ELIGIBLE - FPC OPTIONS AND ONE CARE (MEDICARE REPLACEMENT/ADV ANTAGE - HMO) Yu Morgan [id number] Yu Morgan Notes Date Note Type Note [...] a referral, verified via . Members community [employer]SEM[employer] FOR [employer] MACHINE nurse present during time of triage. Member [...] evaluated in home. Shelli Velez MD [address] [facility], [place], [address], Dress Code 11/29/2022 12:46:44 04/25/2023 text/html HPI: Yu states [...] .................. .................. .................. .................. .................. .................. ............... Telephone Switchboard Operator Note From Dave Mai: pt requesting visit [...] has good pulses and sensation. VM contacted [facility] ordered 30mg of Toradol IM . Toradol given in left deltoid . Pt educated on s/s warranting a 911 call/trip to the hospital. Pt advised to keep F/U appt tomorrow with her doctor. Telephone Switchboard Operator Allergies: Penicillin, Aspirin .................. .................. .................. .................. .................. .................. .................. ............... Disposition: Carolina Quezada MD [address] [facility], [place], [address], Dress Code 04/28/2023 17:27:10 04/26/2023 text/html HPI: Member with [...] DId not further info,nessa Quezada MD [address] [facility], [place], [address], Dress Code 04/26/2023 20:32:11 09/02/2023 text/html This was a supervised home visit with tool shaper set up operator Brenda Newton. HPI: Member reports that she [...] .................. .................. .................. .................. .................. .................. ............... Telephone Switchboard Operator Note From Brenda Newton: Upon arrival, pt was lying in bed on her right side. A/O x4 pt color is pale/warm/dry. Pt is not in any immediate respiratory distress. Pt stated that she has extensive abdominal issues and is supposed to have surgery in [place]. Pt states she has been in 10/10 pain x 2-3 days with nausea, vomiting, and bloody stools. Pt states she wants to go to the ER but insists she gets to [facility] because they are the only ones who will transfer her to [place]. Vitals as noted. Hernia can be visualized in the abdomen. Abdomen is non rigid but extremely tender to the touch. Pt denies any CP, dizziness and/or SOB. [facility] contacted and agrees pt needs to be evaluated in ER. Pt states lifeline will find someone to [facility] and once lifeline is activated, rep stated she told responding unit that pt must be taken to [facility]. EMS BLS unit arrives on scene and states they cannot transport outside their area. Dispatch is notified and asked if [facility] can transport pt to [facility]. [facility] arrives on scene to transport pt and town EMS is cleared. It is noted that pt stated she was at [facility] earlier today for blood work. Pt stated she was brought by transport but they will not do same day transports. [facility] contacted [facility] to alert of pt? s arrival. Call is then cleared. Telephone Switchboard Operator Allergies: Penicillin, Aspirin .................. .................. .................. .................. .................. .................. .................. ............... Disposition: Fulfilled Christoph Blood MD [address] [facility], [place], [address], [facility] 09/02/2023 17:23:01 OBGyn Episode No OBEpisode recorded.
== END 2025-03-28 14:27 | disposition home or self-care (01) ==
LOC: HO.HOP 14:26
PROVIDERS: PCP Internal Medicine; Visit Provider Clinical Nurse Specialist Psychiatric/Mental Health
DX: F33.9 Major depressive disorder, recurrent, unspecified (principal); F60.3 Borderline personality disorder; F41.1 Generalized anxiety disorder; F41.0 Panic disorder [episodic paroxysmal anxiety]
CPT/HCPCS: 99214

== ENCOUNTER 2025-04-11 17:48 | Outpatient (AMB) | payer OTHER, SELFPAY ==
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
--- OUTSIDE RECORDS SUMMARY | 2025-04-11 18:17 | XMS_ITS | Data Portability ---
Author Organization [employer], [facility] Address [address] [place] [address] Care Team Providers Care Access Specialist Name Role Phone [facility] Referring Provider Assessment Encounter Date Assessment Date Assessment LastModified by Organization Details LastModified Time 11/29/2022 11/29/2022 I have reviewed and agree with the assessment and plan as documented by the gasoline locomotive crane operator. I provided real-time medical direction for [...] assessment and plan as documented by the gasoline locomotive crane operator. I provided real time medical direction for this encounter and was immediately available to provide additional phone based assistance as needed. History as noted by gasoline locomotive crane operator. Pt with history of multiple abdominal/bowel surgeries including prior colostomy reversal. Pt has known ventral hernia and has been evaluated at [facility] for surgical repair of the hernia. [...] since she was hoping to get to [facility] tomorrow, but is now stating that she is willing to go to the [facility] ED (since they are part of [facility]) for evaluation and possible transfer to [facility] for surgical evaluation. It Network Engineer helps to arrange ambulance transport to the [facility] ED. I call an expect to the [facility] ED discharge coordinator as well. [email or web address] Not available 09/02/2023 17:22:49 Plan of Treatment Reminders Order Date Submit Date Provider Last Modified By Organization Details Last Modified Time Details Appointments None recorded. Lab None recorded. Referral None recorded. Procedures None recorded. Surgeries None recorded. Imaging None recorded. Medication Orders Moisture Barrier Ointment 0.44 %-20.6 % 2022 023 [facility], [address] [facility], [place], [address], 3 12:47:52 Patient TargetsNo targets recorded. Patient InstructionsNo instructions recorded. Reason for Referral None Reported. Medical Equipment None Reported. Allergies Allergen ID Allergen Name Allergen Category Reaction Reaction Severity Criticality Documentation Date Start Date Code Code System Note Provider Name and Address Organization Details Recorded Time 8461 Product containin g penicilli n (product) medicatio n Not available Not available Not available 08/24/2024 94581 8001 SNOMED Not Available [facility] - production [...] /min 152 mm[Hg] 92 mm[Hg] Not Available [facility] - production 3 12:24:28 Date Recorded Respiratory rate Body weight Oxygen saturation Oxygen saturation in Arterial blood by Pulse oximetry Heart rate Systolic blood pressure Diastolic blood pressure Provider Name and Address Organization Details Last Updated DateTime 3 16 /min 78695.6 8 g 98 % 98 % 79 /min 144 mm[Hg] 90 mm[Hg] Not Available [facility] [facility] - production 3 13:06:43 Date Recorded Heart rate Oxygen saturation Oxygen saturation in Arterial blood by Pulse oximetry Body temperature Respiratory rate Systolic blood pressure Diastolic blood pressure Provider Name and Address Organization Details Last Updated DateTime 3 85 /min 96 % 96 % 98.4 [degF] 16 /min 154 mm[Hg] 83 mm[Hg] Not Available [employer] - production 3 20:27:00 Date Recorded Respiratory rate Heart rate Oxygen saturation Oxygen saturation in Arterial blood by Pulse oximetry Body temperature Systolic blood pressure Diastolic blood pressure Provider Name and Address Organization Details Last Updated DateTime 3 18 /min 96 /min 95 % 95 % 98.7 [degF] 130 mm[Hg] 78 mm[Hg] Not Available [facility] - production 3 15:16:46 Social History None [...] Code Diagnosis Note [id number] Shelli Velez MD [facility] - [address] [address] 11/29/2022 12:24:25 12/02/2022 12:22:07 Epigastric pain 69977102 R10.13 [id number] Chema Quezada [facility] [address] [place] [phone] 04/25/2023 13:06:41 04/29/2023 10:15:27 Carpal tunnel syndrome [id number] G56.01 This 63-year-ol d female with previous right carpal tunnel surgery has a history of right wrist and hand pain that has been worse over the past week. The pain hasn't responded to OTC meds. I ordered Toradol 30 mg IM. She will follow-up with her regular physicians . The patient agreed with this plan. [id number] Chema Quezada MD [facility] - [address] [address] 04/26/2023 20:26:56 04/28/2023 10:33:04 Pain in limb 92066229 M79.609 This 63-year-ol d female continues to [...] option. The patient agreed with this plan. [id number] Christoph Blood MD Main - [facility] [address] [place] [phone] 09/02/2023 15:16:43 09/02/2023 22:32:50 Abdominal pain 15124763 R10.9 Health Concerns Section Related Observation LastModified by Organization Detai ls LastModified Time None Recorded Concern Status LastModified by Organization Details LastModified Time None Recorded Advance Directives Directive None Recorded Payers Insurance Date Sequence Insurance Name Policy Number Policy Mcguire Covered Member ID Mcguire Member ID Guarantor Name 04/25/2023 1 [facility] - DOS PRIOR TO 2023 - DUAL ELIGIBLE (MEDICARE REPLACEMENT/ADV ANTAGE - HMO) Yu Merchant [id number] Yu Morgan 05/27/2024 1 [facility] - DOS ON OR AFTER 2023 - DUAL ELIGIBLE - SENIOR LIVING OPTIONS AND ONE CARE (MEDICARE REPLACEMENT/ADV ANTAGE - HMO) Yu Morgan [id number] Yu Morgan Notes Date Note Type Note [...] a referral, verified via . Members community PHOTOGRAPHIC RESTORER nurse present during time of triage. Member [...] evaluated in home. Shelli Velez MD [address] [facility], [place], [address], [employer] 11/29/2022 12:46:44 04/25/2023 text/html HPI: Yu states [...] .................. .................. .................. .................. .................. .................. ............... It Network Engineer Note From Dave Mai: pt requesting visit [...] has good pulses and sensation. VM contacted [facility] ordered 30mg of Toradol IM . Toradol given in left deltoid . Pt educated on s/s warranting a 911 call/trip to the hospital. Pt advised to keep F/U appt tomorrow with her doctor. It Network Engineer Allergies: Penicillin, Aspirin .................. .................. .................. .................. .................. .................. .................. ............... Disposition: Carolina Quezada MD [address] [facility],[address], [place], [address], [employer] 04/28/2023 17:27:10 04/26/2023 text/html HPI: Member with carpal tunnel pain. Went to urgent care today states she was given medication but it has done nothing to help with the pain. Member requesting visit for pain management until she can be seen by PCP on Friday. .................. .................. .................. .................. .................. .................. .................. ............... CRC Nursing Assessment: Comments: CRC RN DId not further info,sdgem Quezada MD [address] [facility],[address], [place], [address], [employer] 04/26/2023 20:32:11 09/02/2023 text/html This was a supervised home visit with gasoline locomotive crane operator Brenda Newton. HPI: Member reports that she is experiencing abdominal and hernia pain today. Vomiting since this morning. Sweating. Member has hx of hernia pain and is trying to go to [facility] for a urgent medical visit tomorrow. [...] .................. .................. .................. .................. .................. .................. ............... It Network Engineer Note From Brenda Newton: Upon arrival, pt was lying in bed on her right side. A/O x4 pt color is pale/warm/dry. Pt is not in any immediate respiratory distress. Pt stated that she has extensive abdominal issues and is supposed to have surgery in [place]. Pt states she has been in 10/10 pain x 2-3 days with nausea, vomiting, and bloody stools. Pt states she wants to go to the ER but insists she gets to [facility] because they are the only ones who will transfer her to [place]. Vitals as noted. Hernia can be visualized in the abdomen. Abdomen is non rigid but extremely tender to the touch. Pt denies any CP, dizziness and/or SOB. [facility] contacted and agrees pt needs to be evaluated in ER. Pt states [facility] will find someone to [facility] and once lifeline is activated, rep stated she told responding unit that pt must be taken to [facility]. EMS BLS unit arrives on scene and states they cannot transport outside their area. [facility]patch is notified and asked if [place] [facility] can transport pt to [facility]. [place] [facility] arrives on scene to transport pt and [facility] is cleared. It is noted that pt stated she was at [facility] earlier today for blood work. Pt stated she was brought by transport but they will not do same day transports. [facility] contacted [facility] to alert of pt? s arrival. Call is then cleared. It Network Engineer Allergies: Penicillin, Aspirin .................. .................. .................. .................. .................. .................. .................. ............... Disposition: Fulfilled Christoph Blood MD [address] [facility],[address], [place], [address], [employer] 09/02/2023 17:23:01 OBGyn Episode No OBEpisode recorded.
== END 2025-04-11 17:49 | disposition home or self-care (01) ==
LOC: HO.HOP 17:48
PROVIDERS: PCP Internal Medicine; Visit Provider Clinical Nurse Specialist Psychiatric/Mental Health
DX: F33.9 Major depressive disorder, recurrent, unspecified (principal); F60.3 Borderline personality disorder; F41.1 Generalized anxiety disorder; F41.0 Panic disorder [episodic paroxysmal anxiety]; F43.12 Post-traumatic stress disorder, chronic
CPT/HCPCS: 99214

== ENCOUNTER → 2025-04-11 17:48 | Outpatient (BNVA) | payer OTHER, SELFPAY | PROVIDERS: PCP Internal Medicine; Visit Provider Clinical Nurse Specialist Psychiatric/Mental Health | DX: F33.9 Major depressive disorder, recurrent, unspecified (principal); F60.3 Borderline personality disorder; F41.1 Generalized anxiety disorder; F41.0 Panic disorder [episodic paroxysmal anxiety]; F43.12 Post-traumatic stress disorder, chronic ==

== ENCOUNTER 2025-04-20 11:06 | Outpatient (AMB) | payer OTHER, SELFPAY ==
[2025-04-20 11:23] VITALS: BP 106/66; PULSE 79; O2SAT 98
--- NOTE | 2025-04-20 11:23 | A.OFFPC_ITS ---
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: No Accompanied by: Self / Same As Patient Allergies baclofen Allergy (Severe, Verified 04/20/25 11:59) GI upset dexamethasone Allergy (Severe, Verified 04/20/25 11:59) Vomiting doxycycline Allergy (Severe, Verified 04/20/25 11:59) Vomiting naproxen (Aleve) Allergy (Severe, Verified 04/20/25 11:59) Vomiting penicillin V Allergy (Severe, Verified 04/20/25 11:59) vomitting Sulfa (Sulfonamide Antibiotics) Allergy (Severe, Verified 04/20/25 11:59) Vomiting ibuprofen (Advil) Allergy (Intermediate, Verified 04/20/25 11:59) Vomiting codeine (Codeine) Allergy (Mild, Verified 04/20/25 11:59) VOMITING aspirin (ASPIRIN) Adverse Reaction (Severe, Verified 04/20/25 11:59) VOMITING Medication List - Last Reconciled 04/20/25 by Jigar Patel PA-C acetaminophen ER 650 mg PO Q12H PRN 30 days Held on 02/28/25. Instructions: Doctor's Order albuterol sulfate 90 mcg/actuation 2 inhalations inhalation Q6H PRN 30 days apixaban (Eliquis) 5 mg PO BID 30 days atorvastatin 20 mg PO DAILY 90 days bupropion HCl SR (Wellbutrin SR) 100 mg PO QAM cane As directed chair, wheel (Wheel chair) As directed cholecalciferol (vitamin D3) 25 mcg PO DAILY cyclobenzaprine 10 mg PO BEDTIME 30 days diaper,brief,adult,disposable As directed size large diazepam 10 mg (2 x 5 mg) PO BID diclofenac sodium 3% 1 appl topical BID 4 weeks diphenoxylate-atropine 2.5-0.025 mg 6 tabs orally daily; disposable gloves As directed [Electric scooter As directed] [Electric wheelchair As directed] escitalopram oxalate (Lexapro) 20 mg PO DAILY fpbwsvkvqny-wrdxenuac-uzkfjlpc 100-62.5-25 mcg (Trelegy Ellipta) 1 ea inhalation DAILY 30 days furosemide 40 mg PO BID gabapentin 300 mg PO BID gloves, latex with aloe vera (Aloe Vera Latex Gloves) 1 ea miscellaneous DAILY 30 days [hand held shawer spray As directed] levothyroxine 50 mcg PO DAILY lidocaine 5% 1 appl topical DAILY 30 days ixbzes-mkkewuuv-wejzahi 36,000-114,000- 180,000 unit (Creon) caps PO lisinopril 30 mg PO DAILY loperamide 4 mg (2 x 2 mg) PO QID PRN 30 days loratadine (Allergy Relief (loratadine)) 10 mg PO DAILY PRN menthol-zinc oxide 0.44-20.6 % (Calmoseptine) 1 appl topical QID 30 days multivitamin with folic acid 400 mcg (Tab-A-Imelda) 1 tab PO DAILY ondansetron HCl 8 mg PO QID 30 days oxycodone 5 mg PO Q6H PRN 14 days pantoprazole 40 mg PO DAILY potassium chloride ER 20 mEq PO DAILY potassium chloride ER (Klor-Con M) 20 mEq PO DAILY 30 days [pull ups As directed] quetiapine (Seroquel) 50 mg (2 x 25 mg) PO BEDTIME [right hand brace As directed] simethicone (Gas Relief (simethicone)) 125 mg PO TID PRN 30 days sitz bath ([employer] Sitz Bath) As directed thiamine HCl (vitamin B1) 100 mg PO DAILY 90 days walker (Ultra-Light Rollator misc) As directed [washable bedpads As directed] Tobacco use date assessed: 12/27/24 Dental Screening Dental Screen Date: 12/27/24 HPI Annual Exam HPI Details Patient is a 65-year-old female here today for an annual physical. Pancreatic insufficiency: She has been started on new injection therapy to help her chronic diarrhea which has decreased the amount of frequency of bowel movements. Unfortunately her treating senior court office assistant has retired (Dr. Shabazz) She will be establishing care with a new senior court office assistant The symptoms reportedly stem from pancreatic insufficiency and ongoing pancreatitis. The patient describes persistent, severe abdominal pain radiating to the back, exacerbated by eating, and accompanied by frequent diarrhea described as malodorous and fatty, suggestive of malabsorption. The symptoms have been ongoing with little relief from current medication regimens. The patient also reports a history of chronic diarrhea that correlates with her diagnosis of pancreatic insufficiency, leading to significant weight loss and decreased functional status, affecting daily living activities. She has followed up with her senior court office assistant recently and is trying to get a new injection therapy approved for frequent stools. .. Abdominal hernia: She now has limited options for resolution of her hernias. She continues to be in pretty severe pain. Her last hospital admission was strictly for pain control related to her incisional hernias. As above she has not been deemed a surgical candidate. She has upcoming appointment with hernia specialist at [facility] for 2nd opinion though at this point there has been no relatively safe surgical option for her. --> unfortunately her quality of life is pretty poor and she is quite discoura ged by this. We have agreed to start a opiate pain contract to help her with her pain in hopes that will help her quality of life for the time being. She will use acetaminophen 650 along with p.r.n. use of oxycodone 5 mg q.6 hours for her abdominal related pain. .. COPD: . Continues to have some shortness of breath at times which could be related to her recent pulmonary embolism and her Congestive heart failure.. Does follow a hot wound spring production supervisor here in [place] CHF: Recently diagnosed with heart failure with preserved ejection fraction, subsegmental PEs during her hospitalization. Has been started on Eliquis 5 mg b.i.d. and no overt signs of bleeding noted. She was started on furosemide 40 mg b.i.d.. She does have an upcoming appointment to establish care with a local cardiolo gist. She did see a garage door technician while in [place] and advised on starting statin therapy and re-establishing care with local cardiology. .. Vaccines: Up-to-date with COVID vaccine, pneumonia vaccine, shingles vaccine Colon cancer screening: complicated GI case--> Continues to follow ( [facility]) CAR OILER: Hysterectomy Mammogram: Done February of 2024, awaiting results [facility] Medical History History of pulmonary embolism Congestive heart failure HTN (hypertension) HLD (hyperlipidemia) Major depression, recurrent, chronic Generalized anxiety disorder with panic attacks Bipolar disorder, mixed Nicotine dependence, cigarettes, uncomplicated Hypokalemia Flat feet, bilateral Chronic post-traumatic stress disorder (PTSD) Pulmonary nodules Chronic respiratory failure COPD (chronic obstructive pulmonary disease) Abdominal hernia Right lumbar radiculopathy Osteopenia Surgical History History of blepharoplasty History of ventral hernia repair History of resection of small bowel History of ileostomy History of hernia repair History of reversal of ileostomy History of colectomy History of colonoscopy History of umbilical hernia repair History of bladder surgery History of total abdominal hysterectomy and bilateral salpingo-oophorectomy History of cholecystectomy History of appendectomy History of tonsillectomy Family History Father Renal cell cancer Prostate cancer Leukemia Diabetes Hypertension Mother Hypertension Paternal Grandmother Colon cancer Maternal Grandfather Myocardial infarction Sister Lupus Daughter In good health Other Mental health disorder Social History Housing: Apartment Alcohol intake: never Patient Tobacco Use Status: Current someday Tobacco user Tobacco use type: Cigarette Cigarettes Per Day: 10 Years Smoked: (onset 17yo, 1/2-1ppd x 47yrs, 30pyh) e-Cigarette/Vaping Use: Never Used service: No Current occupational status: disabled Current occupation: right hand dominant Cognitive needs: Yes (cane/walker) Hearing needs: No Vision needs: Yes (glasses) Questionnaire Thrive Questionnaire Date Thrive assessed: 02/28/25 I am a: Patient What is your living situation today?: I have a steady place to live Within the past 12 months, did the food you bought not last and you didn't have the money to get more?: I choose not to answer this question Within the past 12 months, did you worry whether your food would run out before you got money to buy more?: I choose not to answer this question Do you have trouble paying for medicines?: No Do you have trouble getting transportation to medical appointments?: No Do you have trouble paying your heating and electricity bill?: No Do you have trouble taking care of your child, family member or friend?: No Do you have trouble with day-to-day activities such as bathing, preparing meals, shopping, managing finances, etc.?: Yes Are you currently unemployed and looking for a job?: No Are you interested in more education?: No Please select the resources that you would like help with: None Currently or been in a relationship where the following occur: I choose not to answer THRIVE Score: 0 EMILY-7 AMB Questionnaire EMILY-7 Date EMILY - 7 assessed: 02/28/25 Source: Developed by Drs. Enoch Vallecillo, Anum Jung, Nathan Tiwari and colleagues, with an educational clifton from [employer]. Review of Systems Const Denies body aches, Denies chills, Denies excessive sweating, Denies fatigue, Denies fever(s) and Denies headache(s) Eyes Denies blurry vision ENT Denies dysphagia, Denies vertigo, Denies dizziness, Denies headache(s), Denies hearing loss and Denies tinnitus Card Denies chest pain, Denies chest pain with activity, Denies syncope, Denies irregular heart rhythm and Denies dyspnea Resp Denies chest congestion, Denies cough, Denies hemoptysis, Denies dyspnea and Denies wheezing GI Denies abdominal pain, Denies melena, Denies hematochezia, Denies coffee ground emesis, Denies dysphagia, Denies diarrhea, Denies nausea and Denies vomiting Denies urinary frequency, Denies dysuria, Denies urinary hesitancy and Denies urinary urgency Musc Denies arthralgias, Denies limited range of motion, Denies muscle cramps and Denies muscle weakness Skin/Breast Denies rash and Denies skin ulcer Neuro Denies Abnormal speech present, Denies confusion, Denies vertigo, Denies dizziness, Denies syncope, Denies headache(s), Denies memory loss and Denies seizure-like activity Psych Denies anxiety, Denies confusion, Denies depression, Denies memory loss, Denies panic attacks and Denies paranoia Endo Denies excessive sweating, Denies fatigue, Denies flushing, Denies polydipsia and Denies polyuria Aller/Immun Denies wheezing Physical exam (Primary Care) Vital Signs: Last Vital Signs Pulse 79 04/20/25 11:23 BP 106/66 04/20/25 11:23 Pulse Ox 98 04/20/25 11:23 Oxygen Delivery Method Room Air 04/20/25 11:23 Tobacco/Smoking Status: Tobacco use Status Tobacco use date assessed 12/27/24 04/20/25 11:26 Patient Tobacco Use Status Current someday Tobacco 04/20/25 11:26 Tobacco use type Cigarette 04/20/25 11:26 e-Cigarette/Vaping Use Never Used 04/20/25 11:26 Thrive Assessment: Date of Thrive Assessment Date Thrive assessed 02/28/25 04/20/25 11:26 Currently or been in a relationship where the following occur: I choose not to answer Const General: cooperative, comfortable, no acute distress, alert and awake; No confusion Orientation/consciousness: oriented to person, oriented to place, patient oriented x3 and No confusion HENMT Head: Yes normocephalic Ears: external ears normal and TM's normal bilaterally Face and sinus: No sinus tenderness Mouth: Normal oral and palatal mucosa present and tongue normal Teeth and gingiva: dentition normal and gingiva normal Throat: Yes posterior oropharynx normal, Yes tonsils normal and Yes uvula midline Eyes Conjunctivae: conjunctivae normal Sclerae: sclerae normal Pupils: Equal, round and reactive pupils present EOM: EOMs intact bilaterally Direct Ophthalmoscopy: No no photophobia Neck Neck: Yes no lymphadenopathy, No tender and Yes no JVD Thyroid: Thyroid normal Carotids: no bruits Chest Chest palpation & inspection: no tenderness Resp Effort & Inspection: normal respiratory effort, no audible wheezes, not labored and no stridor Auscultation: no crackles, no rales, no rhonchi and no wheezes Cardio Jugular venous distension: no JVD Rate: regular rate, not bradycardic and not tachycardic Rhythm: regular rhythm Bruits: no carotid bruits Peripheral pulses: Peripheral pulses 2+ throughout GI Other: ABDOMEN FAIRLY TENDER TO PALPATION, NOTABLE LARGE HERNIA DEFECT OVER THE MID HAS BEEN Inspection: Yes normal to inspection, No abdominal wall ecchymosis and No visible herniation Palpation (GI): Soft to palpation, nontender, no guarding, not rigid and No hepatosplenomegaly present Auscultation: normoactive bowel sounds General: Yes no CVA tenderness Back/Spine/Pelvis Back: no CVA tenderness and No back tenderness Cervical Spine: cervical ROM normal Thoracic/Lumbar Spine: thoracic and lumbar spine normal to inspection, straight leg raise negative bilaterally, No thoraco-lumbar ROM limited and No lumbar spinal tenderness Skin Lesions: no lesions Rashes: no rashes Wounds: no wounds Neuro General: oriented to person, oriented to place, patient oriented x3, CN's II-XI intact bilaterally and No confusion Cranial nerves: Yes Equal, round and reactive pupils present and Yes Normal accommodation reflex present Cognition (Neuro): normal cognition Speech: No Abnormal speech present Gait exam (Neuro): Normal gait present Motor exam (neuro): 5/5 motor strength present throughout Extrem Right upper extremity: full ROM; no cyanosis Left upper extremity: full ROM; no cyanosis Right lower extremity: no edema Left lower extremity: no edema Psych Appearance: grossly normal Mental Status: mental status grossly normal Affect: normal affect Attitude: cooperative Thought process: Normal thought process present Coding Level of Care Code Est Pt Prev Care 40-64y(85607) Diagnoses Annual physical exam Z00.00 Recurrent incisional hernia K43.2 Essential hypertension I10 Hypertension type: essential hypertension Uncomplicated opioid dependence F11.20 Substance use status: uncomplicated Chronic diastolic congestive heart failure I50.32 Heart failure type: diastolic Heart failure chronicity: chronic Assessment & Plan Assessment & Plan (1) Annual physical exam: Code(s): Z00.00 - Encounter for general adult medical examination without abnormal findings Category: Medical Plan: As per HPI (2) Recurrent incisional hernia: Code(s): K43.2 - Incisional hernia without obstruction or gangrene Category: Medical Plan: Continues to have moderate to severe abdominal hernia pain. She reports her pain is almost intolerable and she did find that oxycodone has been helpful. She again was recently seen [facility] for abdominal pain and diarrhea. She believes her hernias getting larger. CT of abdomen does indeed show incisional hernias. There has not been a surgical option for her due to the complexity of her case. She does have a general senior court office assistant (Dr. Shabazz) whom has been trying his best with medications to help slow her GI tract down and reduce her bowel frequency. We did discuss the habit-forming nature and dependency to opiates and she understands and will use oxycodone 10 mg on an as needed basis. HAS A VERY LIMITED QUALITY OF LIFE DUE TO HER CHRONIC ABDOMINAL PAIN RELATED TO HER HERNIAS AND FREQUENCY OF HER BOWEL MOVEMENTS. SHE DOES HAVE HELP AT HOME WELL WITH A SENIOR APPLICATION SOFTWARE ENGINEER TODAY SHE SIGNED A DRUG CONTRACT--AND WILL USE OXYCODONE 5-10 MG P.R.N. FOR HER PAIN ALONG WITH THE ACETAMINOPHEN 650 MG. (3) HTN (hypertension): Code(s): I10 - Essential (primary) hypertension Category: Medical Qualifiers: Hypertension type: essential hypertension Qualified Code(s): I10 - Essential (primary) hypertension Plan: Patient's blood pressure acceptable today in office. Will continue her current dose of antihypertensive medication with goal blood pressure to remain below 140/90. (4) Opiate dependence: Code(s): F11.20 - Opioid dependence, uncomplicated Category: Medical Qualifiers: Substance use status: uncomplicated Qualified Code(s): F11.20 - Opioid dependence, uncomplicated Plan: Today patient sign drug contract in his willing do urine drug screen. (5) Congestive heart failure: Code(s): I50.9 - Heart failure, unspecified Category: Medical Qualifiers: Heart failure type: diastolic Heart failure chronicity: chronic Qualified Code(s): I50.32 - Chronic diastolic (congestive) heart failure Plan: Patient was found of congestive heart failure at a previous hospitalization. She was told to follow up with a garage door technician to which she is followed by [facility] at this time. She continues on furosemide 40 mg b.i.d. and seems to be well compensated. Orders: Orders Drug Screen Urine 04/20/25 F11.20 - Opioid dependence, uncomplicated Comprehensive [place]. Panel Fast 04/20/25 E78.2 - Mixed hyperlipidemia Lipid Panel 04/20/25 E78.2 - Mixed hyperlipidemia Complete Blood Count no Diff 04/20/25 I10 - Essential (primary) hypertension TSH reflex Free T4 04/20/25 E03.9 - Hypothyroidism, unspecified Medications: New naloxone 4 mg/actuation (Narcan) spray 1 dose into ONE nostril; alternate nostrils w each dose until help arrives 4 mg intranasal Q2M PRN 2 ea 0RF opioid overdose 30 days Refilled cyclobenzaprine 10 mg PO BEDTIME 30 tabs 3RF 30 days M47.16 - Other spondylosis with myelopathy, lumbar region oxycodone 5 mg PO Q6H PRN 56 tabs 0RF pain (scale score 7-10) 14 days K43.2 - Incisional hernia without obstruction or gangrene Resumed acetaminophen ER 650 mg PO Q12H PRN 60 tabs 3RF pain 30 days M19.031 - Primary osteoarthritis, right wrist acetaminophen ER 650 mg PO Q12H 30 days PRN 60 tabs 3RF pain M19.031 - Primary osteoarthritis, right wrist
--- OUTSIDE RECORDS SUMMARY | 2025-04-20 13:14 | XMS_ITS | Data Portability ---
Author Organization [facility], [facility] Address [address] [place] [address] Care Team Providers Care Central Sterilization Technician Name Role Phone [facility] Referring Provider Assessment Encounter Date Assessment Date Assessment LastModified by Organization Details LastModified Time 11/29/2022 11/29/2022 I have reviewed and agree with the assessment and plan as documented by the administrative resident. I provided real-time medical direction for this [...] assessment and plan as documented by the administrative resident. I provided real time medical direction for this encounter and was immediately available to provide additional phone based assistance as needed. History as noted by administrative resident. Pt with history of multiple abdominal/bowel surgeries including prior colostomy reversal. Pt has known ventral hernia and has been evaluated at [facility] for surgical repair of the [...] was hoping to get to [facility] tomorrow, but is now stating that she is willing to go to the [facility] ED (since [facility] [place] [facility] [place] [facility] for [place] and possible transfer to [facility] for surgical evaluation. Journeyman Pressman helps to arrange ambulance transport to the [facility] ED. I call an expect to the [facility] ED weigher and charger as well. [email or web address] Not available 09/02/2023 17:22:49 Plan of Treatment Reminders Order Date Submit Date Provider Last Modified By Organization Details Last Modified Time Details Appointments None recorded. Lab None recorded. Referral None recorded. Procedures None recorded. Surgeries None recorded. Imaging None recorded. Medication Orders Moisture Barrier Ointment 0.44 %-20.6 % 2022 023 [facility], [address] [facility], [place], [address], 3 12:47:52 Patient TargetsNo targets recorded. Patient InstructionsNo instructions recorded. Reason for Referral None Reported. Medical Equipment None Reported. Allergies Allergen ID Allergen Name Allergen Category Reaction Reaction Severity Criticality Documentation Date Start Date Code Code System Note Provider Name and Address Organization Details Recorded Time 8461 Product containin g penicilli n (product) medicatio n Not available Not available Not available 08/24/2024 41324 8001 SNOMED Not Available [facility] - production [...] /min 152 mm[Hg] 92 mm[Hg] Not Available [employer] - production 3 12:24:28 Date Recorded Respiratory rate Body weight Oxygen saturation Oxygen saturation in Arterial blood by Pulse oximetry Heart rate Systolic blood pressure Diastolic blood pressure Provider Name and Address Organization Details Last Updated DateTime 3 16 /min 49369.6 8 g 98 % 98 % 79 /min 144 mm[Hg] 90 mm[Hg] Not Available [facility] - production 3 13:06:43 Date Recorded Heart rate Oxygen saturation Oxygen saturation in Arterial blood by Pulse oximetry Body temperature Respiratory rate Systolic blood pressure Diastolic blood pressure Provider Name and Address Organization Details Last Updated DateTime 3 85 /min 96 % 96 % 98.4 [degF] 16 /min 154 mm[Hg] 83 mm[Hg] Not Available [facility] - production 3 20:27:00 Date Recorded Respiratory rate Heart rate Oxygen saturation Oxygen saturation in Arterial blood by Pulse oximetry Body temperature Systolic blood pressure Diastolic blood pressure Provider Name and Address Organization Details Last Updated DateTime 3 18 /min 96 /min 95 % 95 % 98.7 [degF] 130 mm[Hg] 78 mm[Hg] Not Available [employer] - production 3 15:16:46 Social History None [...] Code Diagnosis Note [id number] Shelli Velez MD [facility] - [address] [address] 11/29/2022 12:24:25 12/02/2022 12:22:07 Epigastric pain 41118063 R10.13 [id number] Chema Quezada MD [facility] - [address] [address] 04/25/2023 13:06:41 04/29/2023 10:15:27 Carpal tunnel syndrome 91217100 G56.01 This 63-year-ol d female with previous right carpal tunnel surgery has a history of right wrist and hand pain that has been worse over the past week. The pain hasn't responded to OTC meds. I ordered Toradol 30 mg IM. She will follow-up with her regular physicians . The patient agreed with this plan. [id number] Chema Quezada MD [facility] - [address] [address] 04/26/2023 20:26:56 04/28/2023 10:33:04 Pain in limb 30052259 M79.609 This 63-year-ol d female continues to [...] option. The patient agreed with this plan. [id number] Christoph Blood MD [facility] - [facility] [address] [place] [phone] 09/02/2023 15:16:43 09/02/2023 22:32:50 Abdominal pain 97652420 R10.9 Health Concerns Section Related Observation LastModified by Organization Detai ls LastModified Time None Recorded Concern Status LastModified by Organization Details LastModified Time None Recorded Advance Directives Directive None Recorded Payers Insurance Date Sequence Insurance Name Policy Number Policy Mcguire Covered Member ID Mcguire Member ID Guarantor Name 04/25/2023 1 [facility] - DOS PRIOR TO 2023 - DUAL ELIGIBLE (MEDICARE REPLACEMENT/ADV ANTAGE - HMO) Yu Morgan [id number] Yu Morgan 05/27/2024 1 [facility] - DOS ON OR AFTER 2023 - DUAL ELIGIBLE - INTERMEDIATE OPTIONS AND ONE CARE (MEDICARE REPLACEMENT/ADV ANTAGE - HMO) Yu Morgan [id number] Yu Morgan Notes Date Note Type Note [...] a referral, verified via . Members community NET DEVELOPER SOFTWARE ENGINEER C nurse present during time of triage. Member [...] evaluated in home. Shelli Velez MD [address] [facility], [place], [address], [email or web address] 11/29/2022 12:46:44 04/25/2023 text/html HPI: Yu states [...] .................. .................. .................. .................. .................. .................. ............... Journeyman Pressman Note From Dave Mai: pt requesting visit [...] has good pulses and sensation. VM contacted [facility] ordered 30mg of Toradol IM . Toradol given in left deltoid . Pt educated on s/s warranting a 911 call/trip to the hospital. Pt advised to keep F/U appt tomorrow with her doctor. Journeyman Pressman Allergies: Penicillin, Aspirin .................. .................. .................. .................. .................. .................. .................. ............... Disposition: Carolina Quezada MD [address] [facility], [place], [address], [facility] 04/28/2023 17:27:10 04/26/2023 text/html HPI: Member with [...] DId not further info,sdgem Quezada MD [address] [facility], [place], [address], [facility] 04/26/2023 20:32:11 09/02/2023 text/html This was a supervised home visit with administrative resident Brenda Newton. HPI: Member reports that she is experiencing abdominal and hernia pain today. Vomiting since this morning. Sweating. Member has hx of hernia pain and is trying to go to [facility] for a urgent medical visit tomorrow. [...] .................. .................. .................. .................. .................. .................. ............... Journeyman Pressman Note From Brenda Newton: Upon arrival, pt was lying in bed on her right side. A/O x4 pt color is pale/warm/dry. Pt is not in any immediate respiratory distress. Pt stated that she has extensive abdominal issues and is supposed to have surgery in [place]. Pt states she has been in 10/10 pain x 2-3 days with nausea, vomiting, and bloody stools. Pt states she wants to go to the ER but insists she gets to [facility] because they are the only ones who will transfer her to [place]. Vitals as noted. Hernia can be visualized in the abdomen. Abdomen is non rigid but extremely tender to the touch. Pt denies any CP, dizziness and/or SOB. [facility] contacted and agrees pt needs to be evaluated in ER. Pt states [facility] will find someone to [facility] and once [facility]eline is activated, rep stated she told responding unit that pt must be taken to [facility]. EMS BLS unit arrives on scene and states they cannot transport outside their area. Dispatch is notified and asked if [facility] can transport pt to [facility]. [facility] arrives on scene to transport pt and [facility] is cleared. It is noted that pt stated she was at [facility] earlier today for blood work. Pt stated she was brought by transport but they will not do same day transports. [facility] contacted [facility] to alert of pt s arrival. Call is then cleared. Journeyman Pressman Allergies: Penicillin, Aspirin .................. .................. .................. .................. .................. .................. .................. ............... Disposition: Fulfilled Christoph Blood MD [address] [facility], [place], [address], [facility] 09/02/2023 17:23:01 OBGyn Episode No OBEpisode recorded.
== END 2025-04-20 12:22 | disposition home or self-care (01) ==
LOC: HO.HMCH 11:07
PROVIDERS: PCP Internal Medicine; Visit Provider Physician Assistant
DX: Z00.00 Encounter for general adult medical examination without abnormal findings (principal); F11.20 Opioid dependence, uncomplicated; I11.0 Hypertensive heart disease with heart failure; I50.32 Chronic diastolic (congestive) heart failure; K43.2 Incisional hernia without obstruction or gangrene

== ENCOUNTER 2025-04-20 11:06 | Outpatient (REF) | payer OTHER, SELFPAY ==
[2025-04-20 13:41] LABS: Hematocrit 41.3 % (37.0-47.0); Hemoglobin 13.8 g/dl (12.0-16.0); Mean Corpuscular HGB Conc 33.4 g/dl (31.0-35.0); Mean Corpuscular Hemoglobin 28.1 pg (27.0-33.0); Mean Corpuscular Volume 84.1 fL (80.0-98.0); Mean Platelet Volume 10.1 fL (9.4-12.3); Platelet Count 248 X10*3/uL (160-400); Red Blood Count 4.91 X10*6/uL (4.20-5.50); Red Cell Distribution Width 14.8 % (11.0-16.0); White Blood Count 9.7 X10*3/uL (4.8-10.8)
[2025-04-20 14:01] LABS: Amphetamine Screen Urine Not Detected (Not Detect); Barbiturates, Urine Not Detected (Not Detect); Benzodiazepines Screen Urine POSITIVE (Not Detect); Buprenorphine Scr Not Detected (Not Detect); Cannabinoid Screen Urine Not Detected (Not Detect); Cocaine Screen Urine Not Detected (Not Detect); Fentanyl, urine Not Detected (Not Detect); Methadone Screen, Urine Not Detected (Not Detect); Opiate Screen Urine Not Detected (Not Detect); Oxycodone Screen Urine Positive (Not Detect); Phencyclidine Screen Urine Not Detected (Not Detect)
[2025-04-20 14:34] LABS: Alanine Aminotransferase 26 U/L (0-31); Albumin Level 4.6 g/dL (3.5-5.0); Alkaline Phosphatase 127 U/L (39-117); Anion Gap 16 (12-20); Aspartate Amino Transferase 32 U/L (5-31); Bilirubin Total 0.7 mg/dL (0.0-1.0); Blood Urea Nitrogen 5 mg/dL (9-16); Calcium 9.1 mg/dL (8.4-10.2); Carbon Dioxide 34 mmol/L (22-29); Chloride 88 mmol/L (96-108); Cholesterol 131 mg/dL (<200); Estimated Glomerular Filt Rate > 60; Glucose Fasting 115 mg/dL (60-99); HDL Cholesterol 46 mg/dL (>40); LDL Cholesterol Calculated 62 mg/dL (<100); Potassium 3.5 mmol/L (3.3-5.1); Sodium 134 mmol/L (135-145); TSH reflex Free T4 0.72 uIU/mL (0.32-4.0); Total Protein 6.9 g/dL (6.5-8.0); Triglycerides 117 mg/dL (<150)
== END 2025-04-20 11:07 | disposition home or self-care (01) ==
LOC: HO.LAB 11:06
PROVIDERS: PCP Internal Medicine; Visit Provider Physician Assistant
DX: Z00.00 Encounter for general adult medical examination without abnormal findings (principal); E78.2 Mixed hyperlipidemia; F11.20 Opioid dependence, uncomplicated; E03.9 Hypothyroidism, unspecified; K43.2 Incisional hernia without obstruction or gangrene; I11.0 Hypertensive heart disease with heart failure; I50.32 Chronic diastolic (congestive) heart failure; M47.16 Other spondylosis with myelopathy, lumbar region; M19.031 Primary osteoarthritis, right wrist
CPT/HCPCS: 80053; 80061; 80307; 84443; 85027; 99396

== ENCOUNTER 2025-05-30 14:44 | Outpatient (AMB) | payer OTHER, SELFPAY ==
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
--- OUTSIDE RECORDS SUMMARY | 2025-05-30 14:47 | XMS_ITS | Encounter Summary ---
Author Organization [facility] Address [address] [place] [address] Phone Care Team Providers Care Manufacturing Scheduler Name Role Phone Jigar Patel Primary Care Provider + Edi Montoya MD Unavailable Encounter Details Date Type Department Care Team (Late st Contact Info) Description 01/20/2023 Procedure Pass [facility] [address] [place] [address] Social History Tobacco Use Types Packs/Day Years Used Date Smoking Tobacco: Former Cigarettes 1 20 1 - 08/07/2022 Smokeless Tobacco: Never Alcohol Use Standard Drinks/Week Comments Not Currently 0 (1 standard drink = 0.6 oz pur e alcohol) Comments Unknown Sex and Gender Information Value Date Recorded Sex Assigned at Female 07/24/2022 2:32 PM EDT Legal Sex Female 6:39 PM EST Gender Identity Female 07/24/2022 2:32 PM EDT Sexual Orientation Straight 07/24/2022 2: 32 PM EDT documented as of this encounter Plan of Treatment Not on file documented as of this encounter Visit Diagnoses Not on filedocumented in this encounter Additional Health Concerns Infection Onset Date Last Indicated Resolved Time CoV-Risk Comment:Per note documentation 10/22/2023 10/22/2023 8:09 AM EST Influenza A 10/22/2023 10/22/202310/2910/29/2023 1:22 AM EST documented as of this encounter Care Teams Manufacturing Scheduler Relationship Specialty Start Date End Date Jigar Patel PA [address] [place] [address] PCP - General 07/24/22 Edi Montoya MD [address] [place] [address] [place] [address] Pulmonary Disease 09/25/23 documented as of this encounter Additional Source Comments The information contained in this document represents components of the legal health record. It is not the complete legal health record.[facility]
--- OUTSIDE RECORDS SUMMARY | 2025-05-30 14:47 | XMS_ITS | Clinical Summary ---
Author Organization [facility] [address] [facility] Address [address] [place] [address] Phone Care Team Providers Care Electrical Prospecting Engineer Name Role Phone Jigar Patel Primary Care Provider [phone] Allergies Active Allergy Reactions Criticality Noted Date [...] and drink before a meal 90 packet 01/20/20 25 026 Active octreotide (SandoSTATIN LAR [place]) 20 mg suspension,extended rel reconIndications:Di arrhea following gastrointestinal surgery Inject 20 mg into the shoulder, thigh, or buttocks every 28 (twenty-eight) days for 12 doses. 1 each 05/12/20 25 026 Active octreotide (SandoSTATIN LAR Depot) 20 mg suspension,extended rel reconIndications:Di arrhea following gastrointestinal surgery Inject 20 mg into the shoulder, thigh, or buttocks every 28 (twenty-eight) days for 12 doses. 1 each 02/29/20 25 025 Discontin [facility] Hospital, Clinic, or Other Facility Administered Medication Ordered Dose Route Frequency Start Date End Date Status loperamide (IMODIUM) capsule 2 mgIndications:Functio nal diarrhea 2 mg oral 4 times daily PRN 10/26/2024 Activ e Active Problems Problem Noted Date Diagnosed Date Functional diarrhea 10/26/2024 Ventral hernia 10/22/2024 Incisional hernia, without obstruction or gangre ne 05/17/2022 COPD (chronic obstructive pu lmonary disease) ([facility] V24, [facility] V28) 01/11/2019 KALE (obstructive sleep apnea) [...] Encounters Date Type Department Care Team Description 05/12/2025 Telephone Gastroenterology - [address] [phone] Edu Pretty MD 04/14/2025 4:00 PM EDT Clinical Support Gastroenterology - [address] [address] 04/07/2025 Telephone Gastroenterology - [address] [phone] Estefania Kraus NP 03/14/2025 11:45 AM EDT Clinical Support Gastroenterology - [address] [phone] Functional diarrhea (Primary Dx); Diarrhea, unspecified type 03/02/2025 Telephone Gastroenterology - [address] [phone] Garrett Shabazz MD 03/01/2025 10:08 AM EDT - 03/01/2025 11:59 PM EDT Hospital Encounter [facility] Ultrasound [address] [place] [phone] Abnormal LFTs Discharge Disposition: Home or Self Care 03/01/2025 Telephone Gastroenterology - [address] [place] [phone] Amparo Olivas MA Results 02/28/2025 Telephone Gastroenterology - [address] [place] [phone] Garrett Shabazz MD from Last 3 Months [...] Date Smoking Tobacco: Some Days Cigarettes 0.3 47.1 Started: 04/13/1978 Smokeless Tobacco: Never Tobacco Cessation:Ready [...] 83 11/08/2024 9:16 AM EST Temperature 36.7 C (98 F) 11/08/2024 9:16 AM EST Respiratory Rate 20 11/08/2024 9:16 AM EST Oxygen Saturation 99% 11/08/2024 9:16 AM EST Inhaled Oxygen Concentration - - Weight 88.9 kg (196 lb) 02/17/2025 10:16 AM EDT Height 157.5 cm (5' 2 ) 02/17/2025 10:16 AM EDT Body Mass Index 35.85 02/17/2025 10:16 AM EDT Plan of Treatment Upcoming Encounters Date Type Department Care Team (Late st Contact Info) Description 06/07/2025 10:40 AM EDT Office Visit Gastroenterology - [address] [facility] [address] [phone] Edu Pretty MD [address] [place] [phone] 07/04/2025 11:40 AM EDT Office Visit Gastroenterology - [address] [facility] [address] [phone] Salud Forman PA [address] [place] [address] [place] [address] 07/04/2025 11:40 AM EDT Clinical Support Gastroenterology - [address] [facility] [address] [phone] Health Maintenance Due Date Last Done Comments [...] - Risk 60-74 years 1-dose series) 2022 HIV Screening 09/29/2022 Medicare Annual Wellness Visit 09/29/2022 Social Influencers of Health Screening 09/29/2022 COVID-19 Vaccine ( season) 2024 09/24/2021, 01/11/2021, 12/01/2020 Depression Screening 10/27/2024 Influenza Vaccine (#1) 2025 , 07/12/2011, 08/07/2010, Additional history exists Hypertension/CHF/CAD [...] 03/01/2025 10 :34 AM EDT Abnormal LFTs HEPATITIS C ANTIBODY Routine 02/14/2025 9:42 AM EDT Abnormal blood chemistry COMPREHENSIVE METABOLIC PANEL Routine 01/19/2025 10:59 AM [...] Signed Date: 03/01/2025 14:08 ET Workstation ID: [id number] Transcribed By: Self Edit Transcribed Date: 03/01/2025 14:07 ET Narrative 03/01/2025 2:08 PM EDT PROCEDURE: Right upper quadrant ultrasound. HISTORY: abnormal hepatic function tests. COMPARISON: CT 10/21/2024. TECHNIQUE: Grayscale, color Doppler, and spectral Doppler ultrasound evaluation of the right upper quadrant of the abdomen. FINDINGS: Limited study secondary to patient habitus. LIVER: Mildly echogenic parenchyma. No focal lesion. Normal flow in the main portal vein. BILIARY: Cholecystectomy. PANCREAS: Not visualized. RIGHT KIDNEY: Normal size and echotexture. No hydronephrosis or focal lesion. Procedure Note Momo [...] Signed Date: 03/01/2025 14:08 ET Workstation ID: [id number] Transcribed By: Self Edit Transcribed Date: 03/01/2025 14:07 ET Garrett Shabazz MD IMG US PROCEDURES Final Result * Hepatitis C antibody (02/14/2025 9:42 AM EDT) [facility] Hepatitis C Antibody Negative Negative LAB CHEMISTRY METHOD 02/14/2025 2:19 PM EDT [facility] Blood Venous blood specimen / Unknown Venipuncture / Unknown 02/14/2025 9:42 AM EDT 02/14/2025 10:11 AM EDT Garrett Shabazz MD LAB BLOOD ORDERABLES Final Resu lt [facility] [address] [place] [address], * (ABNORMAL) Comprehensive metabolic panel (01/19/2025 10:59 AM EDT) [facility] Sodium 128(L) 133 - 145 mmol/L LAB CHEMISTRY METHOD 01/19/2025 2:51 PM EDT [facility] Potassium 3.4(L) 3.5 - 5.5 mmol/L LAB CHEMISTRY METHOD 01/19/2025 2:51 PM [facility] Chloride 91(L) 96 - 110 mmol/L LAB CHEMISTRY METHOD 01/19/2025 2:51 PM EDT [facility] CO2 33(H) 21 - 32 mmol/L LAB CHEMISTRY METHOD 01/19/2025 2:51 PM EDT [facility] Anion Gap 4 3 - 11 LAB CHEMISTRY METHOD 01/19/2025 2:51 PM EDT [facility] Glucose 78 70 - 100 mg/dL LAB CHEMISTRY METHOD [facility] BUN 3(L) 5 - 25 mg/dL LAB CHEMISTRY METHOD 01/19/2025 2:51 PM EDT [facility] Creatinine 0.60 0.50 - 1.10 mg/dL LAB CHEMISTRY METHOD 01/19/2025 2:51 PM EDT [facility] eGFR 102 >=60 mL/min/1. 73m2 LAB CHEMISTRY METHOD 01/19/2025 2:51 PM T [facility] Comment:Calculation based on the Chronic Kidney Disease Epidemiology Collaboration (CKD-EPI) equation refit without adjustment for race. BUN/Creatinine Ratio 5.0 LAB CHEMISTRY METHOD 01/19/2025 2:51 PM EDT [facility] Calcium 9.0 8.5 - 10.5 mg/dL LAB CHEMISTRY METHOD 01/19/2025 2:51 PM T [facility] AST (SGOT) 18 10 - 42 unit/L LAB CHEMISTRY METHOD 01/19/2025 2:51 PM [facility] ALT (SGPT) 25 10 - 60 unit/L LAB CHEMISTRY METHOD 01/19/2025 2:51 PM T [facility] Alkaline Phosphatase 133(H) 42 - 121 unit/L LAB CHEMISTRY METHOD 01/19/2025 2:51 PM T [facility] Total Protein 6.7 6.0 - 8.0 g/dL LAB CHEMISTRY METHOD 01/19/2025 2:51 PM [facility] Albumin 3.7 3.2 - 5.0 g/dL LAB CHEMISTRY METHOD 01/19/2025 2:51 PM EDT [facility] Total Bilirubin 0.5 0.0 - 1.4 mg/dL LAB CHEMISTRY METHOD 01/19/2025 2:51 PM [facility] Blood Venous blood specimen / Unknown Venipuncture / Unknown 01/19/2025 10:59 AM EDT 01/19/2025 11:33 AM EDT us Garrett Shabazz MD LAB BLOOD ORDERABLES Final [facility]u lt [facility] [address] [place] [address], * COLONOSCOPY Anesthesia - MAC; [facility] ENDOSCOPY (11/08/2024 8:55 AM EST) Anatomical Region Laterality Modality Other 11/08/2024 8:40 AM EST Impressions 11/08/2024 8:59 AM EST - Patent end-to-end ileo-colonic anastomosis, characterized by healthy appearing mucosa. - The examination was otherwise normal on direct and retroflexion views. - Biopsies were taken with a cold forceps for histology in the rectum, in the sigmoid colon and in the distal ileum. Recommendation: - Patient has a contact number available for emergencies. The signs and symptoms of potential delayed complications were discussed with the patient. Return to normal activities tomorrow. Written discharge instructions were provided to the patient. - Resume previous diet. - Continue present medications. - Await pathology results. Narrative 11/08/2024 8:59 AM EST [facility] GI Patient Name: Yu Dumont Procedure Date: [...] scope was passed under direct vision. Throughout the procedure, the patient's blood pressure, pulse, and oxygen saturations were monitored continuously. The Olympus Pediatric Colonoscope was introduced through the anus and advanced to 20 cm into the ileum. The colonoscopy was performed without difficulty. The patient tolerated the procedure well. The quality of the bowel preparation was adequate. Findings: There was evidence of a prior end-to-end ileo-colonic anastomosis in the sigmoid colon. This was patent and was characterized by healthy appearing mucosa. The anastomosis was traversed. The exam was otherwise without abnormality on direct and retroflexion views. Clara-anal excoriations noted. Biopsies were taken with a cold forceps in the rectum, in the sigmoid colon and in the distal ileum for histology. Procedure Code(s): --- Professional --- 82043, Colonoscopy, flexible; with biopsy, single or multiple CPT copyright 2020 [employer]. All rights reserved. The codes documented in this report are preliminary and upon air traffic controller center review may be revised to meet current compliance requirements. MD Garrett Do MD 11/08/2024 8:59:29 AM This report has been signed electronically.Garrett Shabazz MD Number of Addenda: 0 Note Initiated On: 11/08/2024 8:40 AM Scope In: Scope Out: Endoscopy Department at [facility] - [address] [place] [phone] Procedure Note Garrett Shabazz MD - 11/08/2024 [facility] GI Patient Name: Yu Dumont Procedure Date: [...] Findings: There was evidence of a prior noe-qe-rjedzoi-colonic anastomosis in the sigmoid colon. This was patentand was characterized by healthy appearing mucosa. The anastomosis was traversed. The exam was otherwise without abnormality ondirect and retroflexion views. Clara-anal excoriationsnoted. Biopsies were taken with a cold forceps in therectum, in the sigmoid colon and in the distal ileum for histology. Procedure Code(s): --- Professional --- 74152, Colonoscopy, flexible; with biopsy, singleor multiple CPT copyright 2020 [employer]. All rights reserved. The codes documented in this report are preliminary and upon air traffic controller center reviewmay be revised to meet current compliance requirements. MD Garrett Do MD 11/08/2024 8:59:29 AM This report has been signed electronically.Garrett Shabazz MD Number of Addenda: 0 Note Initiated On: 11/08/2024 8:40 AM Scope In: Scope Out: Endoscopy Department at [facility] - [address] [place] [phone] IMPRESSION: - Patent end-to-end ileo-colonic anastomosis, characterized [...] Most Recently Relevant to Health Maintenance Insurance [facility] MEDIC[facility] Member Subscriber Plan / Payer (Ef fective 2019-Present) Name:YU DUMONT Relation to Subscriber:Self Name:Yu Dumont Payer ID:[id number] Group ID:[id number] Type:Not on file Address: [place] [address] [place] [phone] Advance Directives Documents on File Type Date Recorded 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 Care Teams Electrical Prospecting Engineer Relationship Specialty Start Date End Date Jigar Patel PA [address] [place] [phone] PCP - General 02/26/23
== END 2025-05-30 14:45 | disposition home or self-care (01) ==
LOC: HO.HOP 14:44
PROVIDERS: PCP Internal Medicine; Visit Provider Clinical Nurse Specialist Psychiatric/Mental Health
DX: F33.9 Major depressive disorder, recurrent, unspecified (principal); F60.3 Borderline personality disorder; F41.1 Generalized anxiety disorder; F41.0 Panic disorder [episodic paroxysmal anxiety]; F43.12 Post-traumatic stress disorder, chronic
CPT/HCPCS: 99214

== ENCOUNTER 2025-06-03 11:06 | Outpatient (REF) | payer OTHER, SELFPAY ==
--- OUTSIDE RECORDS SUMMARY | 2025-06-03 11:10 | XMS_ITS | Encounter Summary ---
Author Organization [facility] Address [address] [place] [address] Phone Care Team Providers Care Jet Ski Mechanic Name Role Phone Jigar Patel Primary Care Provider + Edi Montoya MD Unavailable Encounter Details Date Type Department Care Team (Late st Contact Info) Description 01/20/2023 Procedure Pass [facility] Periop [address] [place] [address] Social History Tobacco Use Types Packs/Day Years [...] documented as of this encounter Care Teams Jet Ski Mechanic Relationship Specialty Start Date End Date Jigar Patel PA [address] [place] [address] PCP - General 07/24/22 Edi Montoya MD [address] [place] [address] [place] [address] Pulmonary Disease 09/25/23 documented as of this encounter Additional Source Comments The information contained in this document represents components of the legal health record. It is not the complete legal health record.[facility]
[2025-06-03 14:11] LABS: Appearance Urine Clear; Glucose Urine UA Negative (Negative); PH 6.5 (5.0-9.0); Specific Gravity - Urine <= 1.005 (1.005-1.025); UMIC TRIGGER UACC YES
[2025-06-03 14:27] LABS: UACC Culture Trigger YES
== END 2025-06-03 11:07 | disposition home or self-care (01) ==
LOC: HO.HMGCLDS 11:06
PROVIDERS: PCP Physician Assistant; Visit Provider Internal Medicine
DX: R39.9 Unspecified symptoms and signs involving the genitourinary system (principal)
CPT/HCPCS: 81001; 81003; 87086; 87147

== ENCOUNTER 2025-07-11 14:29 | Outpatient (AMB) | payer OTHER, SELFPAY ==
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
--- OUTSIDE RECORDS SUMMARY | 2025-07-11 19:56 | XMS_ITS | Encounter Summary ---
Author Organization [facility] Address [address] [place] [address] Phone Care Team Providers Care Salvage Repairer Name Role Phone Jigar Patel Primary Care Provider + Edi Montoya MD Unavailable Encounter Details Date Type Department Care Team (Late st Contact Info) Description 01/20/2023 Procedure Pass [facility] Periop [address] [place] [address] Social History Tobacco Use Types Packs/Day Years [...] documented as of this encounter Care Teams Salvage Repairer Relationship Specialty Start Date End Date Jigar Patel PA [address] [place] [address] PCP - General 07/24/22 Edi Montoya MD [address] [place] [address] [place] [address] Pulmonary Disease 09/25/23 documented as of this encounter Additional Source Comments The information contained in this document represents components of the legal health record. It is not the complete legal health record.[facility]
--- OUTSIDE RECORDS SUMMARY | 2025-07-11 19:57 | XMS_ITS | Encounter Summary ---
Author Organization [facility] Address [address] [place] [address] Phone Care Team Providers Care Clam Shovel Operator Name Role Phone Jigar Patel Primary Care Provider + Edi Montoya MD Unavailable Encounter Details Date Type Department Care Team (Late st Contact Info) Description 04/17/2023 Procedure Pass [facility] Periop [address] [place] [address] Social History Tobacco Use Types Packs/Day Years [...] with a working camera? Not on file Comments Unknown Sex and Gender Information Value [...] documented as of this encounter Care Teams Clam Shovel Operator Relationship Specialty Start Date End Date Jigar Patel PA [address] [place] [address] PCP - General 07/24/22 Edi Montoya MD [address] [place] [address] [place] [address] Pulmonary Disease 09/25/23 documented as of this encounter Additional Source Comments The information contained in this document represents components of the legal health record. It is not the complete legal health record.[facility]
--- OUTSIDE RECORDS SUMMARY | 2025-07-11 19:57 | XMS_ITS | Encounter Summary ---
Author Organization [facility] Address [address] [place] [address] Phone Care Team Providers Care Director Of People Name Role Phone Jigar Patel Primary Care Provider + Edi Montoya MD Unavailable Encounter Details Date Type Department Care Team (Late st Contact Info) Description 10/05/2023 Procedure Pass [facility] [address] [place] [address] Social History Tobacco Use Types Packs/Day Years [...] a working camera? Not on file Comments No Sex and Gender Information Value [...] documented as of this encounter Care Teams Director Of People Relationship Specialty Start Date End Date Jigar Patel PA [address] [place] [address] PCP - General 07/24/22 Edi Montoya MD [address] [place] [address] [place] [address] Pulmonary Disease 09/25/23 documented as of this encounter Additional Source Comments The information contained in this document represents components of the legal health record. It is not the complete legal health record.[facility]
--- OUTSIDE RECORDS SUMMARY | 2025-07-11 19:57 | XMS_ITS | Clinical Summary ---
Author Organization [facility] Address [address] [facility] [address] [place] [address] Phone Care Team Providers Care Milk Of Lime Slaker Name Role Phone Jigar Patel Primary Care Provider + Edi Montoya MD Unavailable [phone] Allergies Active Allergy Reactions Criticality Noted Date Comments Aspirin Nausea and/or Vomiting 09/27/2022 Codeine Nausea Only 07/01/2012 Dexamethasone GI Upset 09/27/2022 Doxycycline Hyclate Nausea and/or Vomiting 08/21/2022 Nsaids (Non-Steroidal Anti-Inflammatory Drug) Vomiting High 12/20/2020 Other reaction(s): Nausea and vomiting Penicillins Vomiting 07/01/2012 Medications acetaminophen (TYLENOL) 650 MG CR tablet 2 Active VENTOLIN HFA 90 mcg/actuation inhaler 2 Active cholecalciferol (VITAMIN D3) 2,000 unit capsule 2 Active diazePAM (VALIUM) 10 MG tablet 2 Active levothyroxine (SYNTHROID, LEVOTHROID) 50 MCG tablet 2 Active DULoxetine (CYMBALTA) 30 MG capsule Take 60 mg by mouth daily. 2 Active simethicone 125 mg CapIndications:F latulence/gas pain/belching Take 1 capsule (125 mg total) by mouth 4 (four) times a day as needed. 28 capsule 2 Active furosemide (LASIX) 20 MG tablet 2 Active lisinopril (PRINIVIL,ZESTRI L) 30 MG tablet 2 Active multivitamin per tablet 2 Active lidocaine 5 % topical gel Apply topically daily as needed. 113 g 1 3 Active esomeprazole (NEXIUM) 40 MG capsule 3 Active ondansetron (ZOFRAN) 8 MG tablet 4 times daily 3 Active fluticasone-umec lidin-vilanter (TRELEGY ELLIPTA) 100-62.5-25 mcg inhalation powder Inhale 1 puff into the lungs daily. Active polyethylene glycol (MIRALAX) 17 gram packet Take 17 g by mouth daily as needed for mild constipation. 3 Active Additional Information Patient not taking.Reported on 11/21/2023 senna (SENOKOT) 8.6 mg tablet Take 1 tablet by mouth nightly at bedtime as needed. 3 Active Additional Information Patient not taking.Reported on 11/21/2023 acetaminophen (TYLENOL) 325 mg tablet Take 2 tablets (650 mg total) by mouth every 6 (six) hours. 0 3 Active oxyCODONE 5 MG immediate release tablet Take 2 tablets (10 mg total) by mouth every 4 (four) hours as needed. Partial fill ok 20 tablet 3 Active Additional Information Patient not taking.Reported on 11/21/2023 apixaban (ELIQUIS) 5 mg tablet Take 1 tablet (5 mg total) by mouth 2 (two) times a day. 60 tablet 3 Active amoxicillin-clav ulanate (AUGMENTIN) 875-125 mg per tabletIndication s:Ventral hernia without obstruction or gangrene Take 1 tablet (875 mg of amoxicillin total) by mouth 2 (two) times a day. 14 tablet 4 Active oxyCODONE 5 MG immediate release tabletIndication s:SBO (small bowel obstruction) Take 1 tablet (5 mg total) by mouth every 4 (four) hours as needed. Partial fill ok 25 tablet 4 Active Active Problems Problem Noted Date Diagnosed Date Intraabdominal fluid collection 10/21/2023 Ventral hernia without obstruction or gangrene 1 12/03/2022 SBO (small bowel obstruction) 10/10/2022 Abdominal pain 08/22/2022 Gastroesophageal reflux disease 07/02/2012 Overview (12/17/2014): Gastroesophageal reflux disease; with visceral hypersensitivity Social History Tobacco Use Types Packs/Day Years Used Date Smoking Tobacco: Former Cigarettes 1 20 1 - 08/07/2022 Smokeless Tobacco: Never Tobacco Cessation:Counseling Given: Not Answered Alcohol Use Standard Drinks/Week Comments Not Currently [...] 2:32 PM EDT Sexual Orientation Straight 07/24/2022 2 :32 PM EDT Last Filed Vital Signs Vital Sign Reading Time Taken Comments Blood Pressure 102/67 12/10/2023 2:51 PM EST Pulse 103 12/10/2023 2:51 PM EST Temperature 36.8 C (98.2 F) 10/25/2023 11:04 AM EST Respiratory Rate 18 12/10/2023 2:51 PM EST Oxygen Saturation 98% 12/10/2023 2:51 PM EST Inhaled Oxygen Concentration 50% 10/03/2023 1 2:00 AM EST Weight 78 kg (171 lb 14.4 oz) 12/10/2023 2:51 PM EST Height 160 cm (5' 3 ) 12/10/2023 2:51 PM EST Body Mass Index 30.45 12/10/2023 2:51 PM EST Plan of Treatment Health Maintenance Due Date Last Done Comments TSH LEVEL 1962 DEPRESSION SCREENING 1974 SMOKING Hx and SMOKELESS TOBACCO SCREENING 1975 HEPATITIS C SCREENING 1980 HIV ONE-TIME SCREENING (18-65 YEARS) 1980 MAMMOGRAM 2002 COLOGUARD 2007 COLONOSCOPY 2007 COLORECTAL CANCER SCREENING 2007 FIT TEST 2007 FOBT 2007 SIGMOIDOSCOPY 2007 VIRTUAL COLONOSCOPY 2007 PNEUMOCOCCAL VACCINES (50+ years) (2 of 2 - PCV) 07/15/2020 07/15/2019, 07/12/2011 CREATININE LEVEL 10/24/2024 10/24/2023, , 10/22/2023, Additional history exists POTASSIUM LEVEL 10/25/2024 10/25/2023, 09/27, 10/23/2023, Additional history exists INFLUENZA VACCINE (#1) 2025 , 07/09/2022, 08/05/2021, Additional history exists COVID-19 VACCINE (2024- season) 2025 09/15/2023, 07/09/2022, 09/26/2021, Additional history exists Adult Td,Tdap Booster 08/19/2026 08/19/2016, 000 SCREENING FOR DIABETES 10/24/2026 10/24/2023, 2022 LIPID PANEL 10/01/2028 10/01/2023 ZOSTER VACCINES Completed 07/29/2018, 01/25, 02/12/2015 RSV VACCINE Completed 09/15/2023 HEPATITIS A VACCINES Aged Out No long er eligible based on patient's age to complete this topic HIB VACCINES Aged Out No longer eligi ble based on patient's age to complete this topic MENINGOCOCCAL VACCINES (ACWY) Aged Out No longer eligible based on patient's age to complete this topic MENINGOCOCCAL VACCINES (B) Aged Out N o longer eligible based on patient's age to complete this topic Medical Devices Implanted Type Area Doctor Of Chiropractic Device Identifier Shelf Expiration Date Model / Serial / Lot Mesh Surgical [id number] Ph[employer] St Pocketed Bioresorbable Open Positioning System Oval - [id number] Implanted:Qty: 1 on 10/02/2023 by Chintan Figueroa MD at [facility] N/A: Abdomen [employer] 12/24/2024 [id number] / [id number] / [id number] Procedures Procedure Name Priority Date/Time Associated Diagnosis Comments POTASSIUM Routine 10/25/2023 5:23 AM EST BASIC METABOLIC PANEL Routine 10/24/2023 7:18 AM EST LIPID PANEL Routine 10/01/2023 12:11 PM EST Preoperative cardiovascular examination from Last 3 Months or Most Recently Relevant to Health Maintenance Results * (ABNORMAL) Potassium (10/25/2023 5:23 AM EST) POTASSIUM 3.3(L) 3.4 - 5.1 mmol/L [facility] Blood 10/25/2023 5:23 AM EST 10/25/2023 5:39 AM EST us Bolivar Meyer MD, MPH LAB BLOOD ORDER MARY Final Result [facility] [address] [place] [address] * (ABNORMAL) Basic metabolic panel (10/24/2023 7:18 AM EST) SODIUM 134(L) 136 - 145 mmol/L [facility] POTASSIUM 3.0(L) 3.4 - 5.1 mmol/L [facility] CHLORIDE 93(L) 98 - 107 mmol/L [facility] CO2 30 22 - 31 mmol/L [facility] BUN <3(L) 6 - 23 mg/dL [facility] CREATININE 0.30(L) 0.50 - 1.20 mg/dL [facility] GLUCOSE 99 70 - 100 mg/dL [facility] CALCIUM 8.1(L) 8.8 - 10.7 mg/dL [facility] EGFR >120 >59 mL/min/1. 73m2 [facility] Comment:Estimated glomerular filtration rate calculated using the CKD-EPI refit equation. ANION GAP 11 7 - 17 mmol/L [facility] Blood 10/24/2023 7:18 AM EST 10/24/2023 8:13 AM EST Bolivar Meyer MD, MPH LAB BLOOD ORDER MARY Final Result Performing Organization Address [facility] Co de Phone Number [facility] [address] [place] [address] * (ABNORMAL) Lipid panel (10/01/2023 12:11 PM EST) CHOLESTEROL 166 <200 mg/dL [facility] TRIGLYCERIDES 152(H) 35 - 150 mg/dL [facility] HDL 60 40 - 80 mg/dL [facility] CALCULATED LDL 76 50 - 129 mg/dL [facility] VLDL 30 <31 mg/dL [facility] CARDIAC RISK RATIO 2.8 0.0 - 4.0 [facility] 10/01/2023 12:1 1 PM EST 10/01/2023 12:21 PM EST Isabel Cameron MD LAB BLOOD ORDERABLES Final Result Performing Organization Address City/[facility] Co de Phone Number [facility] [address] [place] [address] from Last 3 Months or Most Recently Relevant to Health Maintenance Insurance MEDICARE PART A & B [facility] CARE MEDICARE REPLACEMENT [place] [address] MEDICARE PART A & B [facility] CARE MEDICARE REPLACEMENT MEDICARE PART A & B CARE MEDICARE REPLACEMENT MEDICARE PART A & [place] [address] [place] [address] CARE MEDICARE REPLACEMENT MEDICARE PART A & B [facility] MEDICARE REPLACEMENT MEDICARE PART A & B [facility] CARE MEDICARE REPLACEMENT MEDICARE PART A & B [facility] CARE MEDICARE REPLACEMENT [place] [id number] MEDICARE PART A & B [id number] [place] [address] CARE MEDICARE REPLACEMENT [place] [address] MEDICARE PART A & B [facility] CARE MEDICARE REPLACEMENT [place] [id number] Advance Directives For more information, please contact: [phone] (9AM - 5PM [facility], Friday-Friday) Documents on File Type Date Recorded Patient Die Cutter Diamond Expl anation Healthcare Proxy 10/10/2023 4:15 PM MOLST 09/04/2023 3:32 PM * Full Code (Latest Code Status on File) Date Activated Date Inactivated Comments 10/02/2023 8:51 PM Question Answer Comments Code Status Confirmed With: Patient * Full Code Except DNI Date Activated Date Inactivated Comments 08/22/2022 1:05 PM 10/02/2023 8:51 PM Question Answer Comments Code Status Confirmed With: Patient Code Status Communicated To: Inpatient Attending Care Teams Milk Of Lime Slaker Relationship Specialty Start Date End Date Jigar Patel PA [address] [place] [address] PCP - General 07/24/22 Edi Montoya MD [address] [place] [address] [place] [address] Pulmonary Disease 09/25/23 Additional Source Comments The information contained in this document represents components of the legal health record. It is not the complete legal health record.[facility]
--- OUTSIDE RECORDS SUMMARY | 2025-07-11 19:57 | XMS_ITS | Encounter Summary ---
Author Organization [facility] Address [address] [place] [address] Phone Care Team Providers Care Core Maker Helper Name Role Phone Jigar Patel Primary Care Provider + Edi Montoya MD Unavailable Encounter Details Date Type Department Care Team (Late st Contact Info) Description 10/02/2023 Procedure Pass [facility] Periop [address] [place] [address] Social History Tobacco Use Types Packs/Day Years [...] PM EDT documented as of this encounter Functional Status * Calculated C-SSRS Risk Score (Lifetime/Recent) Answer Date of Assessment Author No Risk Indicated 10/03/2023 3:00 AM Luisa Don RN * [place]ney Suicide Severity Rating Scale (Screener/Recent Self-Report) Question Answer Date of Assessment Author 1. Wish to be (Past 1 Month) No 10/03/2023 3:00 AM Luisa Don RN 2. Non-Specific Active Suici jason Thoughts (Past 1 Month) No 10/03/2023 3:00 AM Myrna Don RN 6. Suicidal Behavior (Lifetime) No 3:00 AM Luisa Don RN documented as of this encounter Plan of Treatment Not on file documented as of this encounter Visit Diagnoses Not on filedocumented in this encounter Additional Health Concerns Infection Onset Date Last Indicated Resolved Time CoV-Risk Comment:Per note documentation 10/22/2023 10/22/2023 8:09 AM EST Influenza A 10/22/2023 10/22/2023 10/29/2023 1:22 AM EST documented as of this encounter Care Teams Core Maker Helper Relationship Specialty Start Date End Date Jigar Patel PA [address] [place] [address] PCP - General 07/24/22 Edi Montoya MD [address] [place] [address] [place] [address] Pulmonary Disease 09/25/23 documented as of this encounter Additional Source Comments The information contained in this document represents components of the legal health record. It is not the complete legal health record.[facility]
--- OUTSIDE RECORDS SUMMARY | 2025-07-11 19:57 | XMS_ITS | Encounter Summary ---
Author Organization [facility] Address [address] [place] [address] Phone Care Team Providers Care Security Risk Analyst Name Role Phone Jigar Patel Primary Care Provider + Edi Montoya MD Unavailable Encounter Details Date Type Department Care Team (Late st Contact Info) Description 10/10/2022 Procedure Pass [facility] [address] [place] [address] Social History Tobacco Use Types Packs/Day Years [...] Date of Assessment Author No Risk Indicated 10/10/2022 5:20 PM EST Callie Meza, RN * [place] Suicide Severity Rating Scale (Screener/Recent Self-Report) Question Answer Date of Assessment Author 1. Wish to be (Past 1 Month) No 022 5:20 PM EST Callie Meza, RN 2. Non-Specific Active Suici jason Thoughts (Past 1 Month) No 10/10/2022 5:20 PM EST Anayeli Meza RN 6. Suicidal Behavior (Lifetime) No 5:20 PM EST Callie Meza RN documented as of this encounter Plan of Treatment Not on file documented as of this encounter Visit Diagnoses Not on filedocumented in this encounter Additional Health Concerns Infection Onset Date Last Indicated Resolved Time CoV-Risk Comment:Per note documentation 10/22/2023 10/22/2023 8:09 AM EST Influenza A 10/22/2023 10/22/2023 10/29/2023 1:22 AM EST documented as of this encounter Care Teams Security Risk Analyst Relationship Specialty Start Date End Date Jigar Patel PA [address] [place] [address] PCP - General 07/24/22 Edi Montoya MD [address] [place] [address] [place] [address] Pulmonary Disease 09/25/23 documented as of this encounter Additional Source Comments The information contained in this document represents components of the legal health record. It is not the complete legal health record.[facility]
--- OUTSIDE RECORDS SUMMARY | 2025-07-11 19:57 | XMS_ITS | Encounter Summary ---
Author Organization [facility] Address [address] [place] [address] Phone Care Team Providers Care Pharm Tech Name Role Phone Jigar Patel Primary Care Provider + Edi Montoya MD Unavailable Encounter Details Date Type Department Care Team (Late st Contact Info) Description 09/25/2023 Procedure Pass [facility] Echocardiography [address] [place] [address] Social History Tobacco Use Types Packs/Day Years [...] documented as of this encounter Care Teams Pharm Tech Relationship Specialty Start Date End Date Jigar Patel PA [address] [place] [address] PCP - General 07/24/22 Edi Montoya MD [address] [place] [address] [place] [address] Pulmonary Disease 09/25/23 documented as of this encounter Additional Source Comments The information contained in this document represents components of the legal health record. It is not the complete legal health record.[facility]
--- OUTSIDE RECORDS SUMMARY | 2025-07-11 19:57 | XMS_ITS | Encounter Summary ---
Author Organization [facility] Address [address] [place] [address] Phone Care Team Providers Care Home Stereo Equipment Installer Name Role Phone Jigar Patel Primary Care Provider + Edi Montoya MD Unavailable Encounter Details Date Type Department Care Team (Late st Contact Info) Description 11/25/2023 Procedure Pass [facility] Imaging, [place] [address] [place] [address] Social History Tobacco Use Types Packs/Day Years [...] on filedocumented in this encounter Care Teams Home Stereo Equipment Installer Relationship Specialty Start Date End Date Jigar Patel PA [address] [place] [address] PCP - General 07/24/22 Edi Montoya MD [address] [place] [address] [place] [address] Pulmonary Disease 09/25/23 documented as of this encounter Additional Source Comments The information contained in this document represents components of the legal health record. It is not the complete legal health record.[facility]
--- OUTSIDE RECORDS SUMMARY | 2025-07-11 19:57 | XMS_ITS | Encounter Summary ---
Author Organization [facility] Address [address] [place] [address] Phone Care Team Providers Care Email Marketing Processor Name Role Phone Jigar Patel Primary Care Provider + Edi Montoya MD Unavailable Encounter Details Date Type Department Care Team (Late st Contact Info) Description 04/17/2023 Procedure Pass [facility] Periop [address] [place] [address] Social History Tobacco Use Types Packs/Day Years [...] documented as of this encounter Care Teams Email Marketing Processor Relationship Specialty Start Date End Date Jigar Patel PA [address] [place] [address] PCP - General 07/24/22 Edi Montoya MD [address] [place] [address] [place] [address] Pulmonary Disease 09/25/23 documented as of this encounter Additional Source Comments The information contained in this document represents components of the legal health record. It is not the complete legal health record.[facility]
--- OUTSIDE RECORDS SUMMARY | 2025-07-11 19:57 | XMS_ITS | Encounter Summary ---
Author Organization [facility] Address [address] [place] [address] Phone Care Team Providers Care Software Build Engineer Name Role Phone Jigar Patel Primary Care Provider + Edi Montoya MD Unavailable Encounter Details Date Type Department Care Team (Late st Contact Info) Description 08/21/[address] [facility] [address] [place] [address] Social History Tobacco Use Types Packs/Day Years Used Date Smoking Tobacco: Former Cigarettes 1 20 Smokeless Tobacco: Never Alcohol Use Standard Drinks/Week [...] Date of Assessment Author No Risk Indicated 08/22/2022 12:15 PM EDT Natalie Calloway RN * [place] Suicide Severity Rating Scale (Screener/Recent Self-Report) Question Answer Date of Assessment Author 1. Wish to be (Past 1 Month) No 08/21/2022 12:56 PM EDT Misti Araujo R N 2. Non-Specific Active Suicidal Thoughts (Past 1 Month) No 08/22/2022 12:15 PM EDT Bee Mcmanus RN 6. Suicidal Behavior (Lifetime) No 08/22/2022 12:15 PM EDT Bee Mcmanus RN documented as of this encounter Plan of Treatment Not on file documented as of this encounter Visit Diagnoses Not on filedocumented in this encounter Additional Health Concerns Infection Onset Date Last Indicated Resolved Time CoV-Risk Comment:Per note documentation 10/22/2023 10/22/2023 8:09 AM EST Influenza A 10/22/2023 10/22/2023 10/29/2023 1:22 AM EST documented as of this encounter Care Teams Software Build Engineer Relationship Specialty Start Date End Date Jigar Patel PA [address] [place] [address] PCP - General 07/24/22 Edi Montoya MD [address] [place] [address] [place] [address] Pulmonary Disease 09/25/23 documented as of this encounter Additional Source Comments The information contained in this document represents components of the legal health record. It is not the complete legal health record.[facility]
--- OUTSIDE RECORDS SUMMARY | 2025-07-11 19:57 | XMS_ITS | Clinical Summary ---
Author Organization [facility] [address] [facility] Address [address] [place] [address] Phone Care Team Providers Care Dobie Worker Name Role Phone Jigar Patel Primary Care [...] Active ondansetron (ZOFRAN) 8 mg tablet Take by mouth 4 (four) times a day. Active prazosin (MINIPRESS) 5 mg capsule Active ergocalciferol, vitamin D2, 50 mcg (2,000 unit) capsule Take 1 Cap by mouth daily. Active esomeprazole (NexIUM) [address] capsuleIndications:G ERD (gastroesophageal reflux disease) TAKE 1 CAPSULE BY MOUTH TWICE DAILY 56 capsule 3 10/04/20 24 Active Additional Information Patient not taking.Reported on 07/04/2025 apixaban (ELIQUIS) 5 mg tablet Take 1 tablet (5 mg total) by mouth 2 (two) times a day. Active oxyCODONE (ROXICODONE) 5 mg immediate release tablet Take 1 tablet (5 mg total) by mouth every 6 (six) hours if needed for severe pain. Max Daily Amount: 20 mg 10 tablet 10/22/20 24 Active diphenoxylate-atropi ne (LOMOTIL) 2.5-0.025 mg per tabletIndications:Di arrhea following gastrointestinal surgery TAKE 2 TABLETS BY MOUTH THREE TIMES DAILY NEEDED 180 tablet 4 11/04/19 25 Active loperamide (IMODIUM) 2 mg capsule TAKE 1 CAPSULE BY MOUTH FOUR TIMES DAILY NEEDED 30 capsule 11/09/19 25 Active lidocaine (XYLOCAINE) 5 % ointmentIndications: Diarrhea [...] 90 packet 11 01/20/20 25 026 Active Additional Information Patient not taking.Reported on 07/04/2025 pantoprazole (PROTONIX) 40 mg EC tablet TAKE 1 TABLET BY MOUTH ONCE A DAY 30 tablet 1 06/03/20 25 Active potassium chloride (KLOR-CON M10) 10 mEq CR tablet Take 1 tablet (10 mEq total) by mouth 1 (one) time each day. Tablet may be swallowed whole (do not crush/chew/suck on) OR broken in half and each half swallowed separately OR dissolved (whole tablet) in ~4 ounces of water (allow ~2 minutes to dissolve, stir well and administer immediately). Active pancrelipase, Ztb-Lrob-Gcrz, (CREON) 24,000-76,000 -120,000 unit capsule Take 1 capsule (24,000 Units total) by mouth 4 (four) times a day. Active octreotide (SandoSTATIN LAR Depot) 30 mg suspension,extended rel reconIndications:Ava rrhea due to malabsorption Inject 30 mg into the shoulder, thigh, or buttocks every 28 (twenty-eight) days. 1 each 06/09/20 026 Active Hospital, Clinic, or Other Facility Administered Medication Ordered Dose Route Frequency Start Date End Date Status loperamide (IMODIUM) capsule 2 mgIndications:Functio nal diarrhea 2 mg oral 4 times daily PRN 10/26/2024 Activ e Active Problems Problem Noted Date Diagnosed Date Class 1 obesity 07/01/2025 Bipolar disorder ([facility] [place], [facility] V28) 05/27 Severe obesity ([facility] [place] V24, [facility] V28) 2024 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 Status post cholecystectomy 06/07/2025 Diarrhea due to malabsorption 06/07/2025 Functional diarrhea 10/26/2024 Ventral hernia 10/22/2024 Intraabdominal fluid collection 10/21/2023 SBO (small bowel obstruction) ([facility] [place] [place]24, [facility] V28) 10/10/2022 Abdominal pain 08/22/2022 Incisional hernia, without obstruction or gangre ne 05/17/2022 Smoking addiction 10/29/2021 Anxiety disorder 10/29/2021 Incontinence 10/29/2021 Hyponatremia 10/29/2021 Gastric reflux 10/29/2021 Gastroparesis 10/29/2021 Hyperglycemia 10/29/2021 Irritable bowel syndrome 10/29/2021 Parasomnia 10/29/2021 Peristomal dermatitis 10/29/2021 Psychogenic polydipsia 10/29/2021 Tardive dyskinesia 10/29/2021 Asthma 10/29/2021 Atypical migraine 10/29/2021 Ileostomy dysfunction ([facility] [place] [place]24, [facility] V28) 10/13/2021 Hypothyroidism 03/05/2021 Hypertension 03/05/2021 Chronic narcotic dependence ([facility] V24, [facility]/ [facility] V28) 03/05/2021 Schizoaffective disorder ([facility] V24, [facility] V 28) 03/05/2021 Chronic constipation 02/22/2021 COPD (chronic obstructive pu lmonary disease) ([facility] [place] V24, [facility] V28) 01/11/2019 KALE (obstructive sleep apnea) 01/11/2019 [...] by 2019 home polysomnogram. Pulmonary nodule 01/11/2019 Gastroesophageal reflux disease 07/02/2012 Overview (07/01/2025): Gastroesophageal reflux disease; with visceral hypersensitivity Resolved Problems Problem Noted Date Diagnosed Date Resolved Date Diarrhea following gastrointestinal surgery 08/31/2024 10/26/2024 Encounters Date Type Department Care Team Description 07/04/2025 Treatment Gastroenterology - [address] [place] [phone] Salud Forman PA 06/09/2025 Telephone Gastroenterology - [address] [place] [phone] Edu Pretty MD 06/07/2025 10:40 AM EDT Office Visit Gastroenterology - [address] [phone] Edu Pretty MD Diarrhea due to malabsorption (Primary Dx) 05/12/2025 Telephone Gastroenterology - [address] [phone] Edu Pretty MD 04/14/2025 4:00 PM EDT Clinical Support Gastroenterology - [address] [phone] from Last 3 Months Surgical History Surgery Date Site/Laterality Comments HERNIA REPAIR PROCEDURE: DC REPAIR FIRST ABDOMINAL WALL HERNIA OTHER SURGICAL [...] Date Smoking Tobacco: Some Days Cigarettes 0.3 47.2 Started: 04/13/1978 Smokeless Tobacco: Never Tobacco Cessation:Ready to Q uit: Not Asked; Counseling Given: Not Answered Comments:4-5 a day Alcohol Use Standard Drinks/Week Comments No 0 [...] EST Inhaled Oxygen Concentration - - Weight 99.6 kg (219 lb 9.6 oz) 07/04/2025 11:41 AM EDT Height 160 cm (5' 3 ) 07/04/2025 11:41 AM EDT Body Mass Index 38.9 07/04/2025 11:41 AM EDT Plan of Treatment Upcoming Encounters Date Type Department Care Team (Late st Contact Info) Description 09/13/2025 9:20 AM EST Office Visit Gastroenterology - [address] [phone] Edu Pretty MD [address] [phone] Health Maintenance Due Date Last Done Comments [...] 09/29/2022 Social Influencers of Health Screening 09/29/2022 Depression Screening 10/27/2024 COVID-19 Vaccine ( season) 2025 09/24/2021, 01/11/2021, 12/01/2020 Influenza Vaccine (#1) 2025 , 07/12/2011, 08/07/2010, Additional history exists Hypertension/CHF/CAD Annual BMP Blood Test 01/19/2026 01/19/2025, 10/21/2024, 10/24/2023, Additional history exists Cholesterol Screening (Lipid Panel) 10/01/2028 10/01/2023, 10/01/2023 Colorectal Cancer Screening: Colonoscopy 11/08/2034 11/08/2024, 02/05/2024, 07/20/2019 Hepatitis C Screening Completed 02/14/2025 HIB Vaccines [...] Procedure Name Priority Date/Time Associated Diagnosis Comments EXTERNAL ENDOSCOPY REPORT Routine 06/01/2025 11:12 AM EDT HEPATITIS C ANTIBODY Routine 02/14/2025 9:42 AM EDT Abnormal blood chemistry COMPREHENSIVE METABOLIC PANEL Routine 01/19/2025 10:59 AM EDT Diarrhea, unspecified type COLONOSCOPY Routine 11/08/2024 8:55 AM EST History of colon polyps LIPID PANEL Routine 10/01/2023 from Last 3 Months or Most Recently Relevant to Health Maintenance Results * External Endoscopy (06/01/2025 11:12 AM EDT) Anatomical Region Laterality Modality Endoscopy [facility] Provider GI~PROCEDURE ORDERABLES F inal Result * Hepatitis C antibody (02/14/2025 9:42 AM EDT) Pathologist [facility] Hepatitis C Antibody Negative Negative LAB CHEMISTRY METHOD 02/14/2025 2:19 PM EDT [facility] Blood Venous blood specimen / Unknown Venipuncture / Unknown 02/14/2025 9:42 AM EDT 02/14/2025 10:11 AM EDT Garrett Shabazz MD LAB BLOOD ORDERABLES Final Resu lt [facility] [address] [place] [address], * (ABNORMAL) Comprehensive metabolic panel (01/19/2025 10:59 AM EDT) Pathologist [facility] Sodium 128(L) 133 - 145 mmol/L LAB CHEMISTRY METHOD 01/19/2025 2:51 PM EDT [facility] Potassium 3.4(L) 3.5 - 5.5 mmol/L LAB CHEMISTRY METHOD 01/19/2025 2:51 PM EDT [facility] Chloride 91(L) 96 - 110 mmol/L LAB CHEMISTRY METHOD 01/19/2025 2:51 PM [facility] CO2 33(H) 21 - 32 mmol/L LAB CHEMISTRY METHOD 01/19/2025 2:51 PM [facility] Anion Gap 4 3 - 11 LAB CHEMISTRY METHOD 01/19/2025 2:51 PM [facility] Glucose 78 70 - 100 mg/dL LAB CHEMISTRY METHOD 01/19/2025 2:51 PM [facility] BUN 3(L) 5 - 25 mg/dL LAB CHEMISTRY METHOD 01/19/2025 2:51 PM [facility] Creatinine 0.60 0.50 - 1.10 mg/dL LAB CHEMISTRY METHOD 01/19/2025 2:51 PM [facility] eGFR 102 >=60 mL/min/1. 73m2 LAB CHEMISTRY METHOD 01/19/2025 2:51 PM [facility] Comment:Calculation based on the Chronic Kidney Disease Epidemiology Collaboration (CKD-EPI) equation refit without adjustment for race. BUN/Creatinine Ratio 5.0 LAB CHEMISTRY METHOD 01/19/2025 2:51 PM [facility] Calcium 9.0 8.5 - 10.5 mg/dL LAB CHEMISTRY METHOD 01/19/2025 2:51 PM [facility] AST (SGOT) 18 10 - 42 unit/L LAB CHEMISTRY METHOD 01/19/2025 2:51 PM [facility] ALT (SGPT) 25 10 - 60 unit/L LAB CHEMISTRY METHOD 01/19/2025 2:51 PM [facility] Alkaline Phosphatase 133(H) 42 - 121 unit/L LAB CHEMISTRY METHOD 01/19/2025 2:51 PM [facility] Total Protein 6.7 6.0 - 8.0 g/dL LAB CHEMISTRY METHOD 01/19/2025 2:51 PM [facility] Albumin 3.7 3.2 - 5.0 g/dL LAB CHEMISTRY METHOD 01/19/2025 2:51 PM EDT [facility] Total Bilirubin 0.5 0.0 - 1.4 mg/dL LAB CHEMISTRY METHOD 01/19/2025 2:51 PM EDT [facility] Blood Venous blood specimen / Unknown Venipuncture / Unknown 01/19/2025 10:59 AM EDT 01/19/2025 11:33 AM EDT us Garrett Shabazz MD LAB BLOOD ORDERABLES Final Resu lt [facility] [address] [place] [address], * COLONOSCOPY Anesthesia - MAC; [facility] ENDOSCOPY (11/08/2024 8:55 AM EST) Anatomical [...] pathology results. Narrative 11/08/2024 8:59 AM EST [facility] GI Patient Name: Kain Dumont Procedure Date: 11/08/2024 8:40 AM Date [...] for histology. Procedure Code(s): --- Professional --- 45749, Colonoscopy, flexible; with biopsy, single or multiple CPT copyright 2020 [employer]. All rights reserved. The codes documented in this report are preliminary and upon research technician review may be revised to meet current compliance requirements. MD Garrett Do MD 11/08/2024 8:59:29 AM This report has been signed electronically.Garrett Shabazz MD Number of Addenda: 0 Note Initiated On: 11/08/2024 8:40 AM Scope In: Scope Out: Endoscopy Department at [facility] - [address] [place] [phone] Procedure Note Garrett Shabazz MD - 11/08/2024 [facility] GI Patient Name: Kain Dumont Procedure Date: 11/08/2024 8:40 AM Date [...] Findings: There was evidence of a prior pzd-uf-rwwpcqv-colonic anastomosis in the sigmoid colon. This was patentand was characterized by healthy appearing mucosa. The anastomosis was traversed. The exam was otherwise without abnormality ondirect and retroflexion views. Clara-anal excoriationsnoted. Biopsies were taken with a cold forceps in therectum, in the sigmoid colon and in the distal ileum for histology. Procedure Code(s): --- Professional --- 99294, Colonoscopy, flexible; with biopsy, singleor multiple CPT copyright 2020 [employer]. All rights reserved. The codes documented in this report are preliminary and upon research technician reviewmay be revised to meet current compliance requirements. MD Garrett Do MD 11/08/2024 8:59:29 AM This report has been signed electronically.Garrett Shabazz MD Number of Addenda: 0 Note Initiated On: 11/08/2024 8:40 AM Scope In: Scope Out: Endoscopy Department at [facility] - [address] [place] [phone] IMPRESSION: - Patent end-to-end ileo-colonic anastomosis, characterized [...] Subscriber Plan / Payer (Ef fective 2019-Present) Name:KAIN DUMONT Relation to Subscriber:Self Name:Kain Dumont Payer ID:[id number] Group ID:[id number] Type:Not on file Address: [facility] [address] [id number] Advance Directives Documents on File Type Date Recorded Patient Kidney Puller Expl anation Health Care Decision (hx) 11/03/2022 [...] currently active code status orders. Care Teams Dobie Worker Relationship Specialty Start Date End Date Jigar Patel PA [address] [place] [phone] PCP - General 02/26/23
--- OUTSIDE RECORDS SUMMARY | 2025-07-11 19:57 | XMS_ITS | Encounter Summary ---
Author Organization [facility] Address [address] [place] [address] Phone Care Team Providers Care Belt Machine Operator Name Role Phone Jigar Patel Primary Care Provider + Edi Montoya MD Unavailable [phone] Encounter Details Date Type Department Care Team (Late st Contact Info) Description 10/02/2022 Procedure Pass [facility] Periop [address] [place] [address] Social History Tobacco Use Types Packs/Day Years [...] documented as of this encounter Care Teams Belt Machine Operator Relationship Specialty Start Date End Date Jigar Patel PA [address] [place] [address] PCP - General 07/24/22 Edi Montoya MD [address] [place] [address] [place] [address] Pulmonary Disease 09/25/23 documented as of this encounter Additional Source Comments The information contained in this document represents components of the legal health record. It is not the complete legal health record.[facility]
--- OUTSIDE RECORDS SUMMARY | 2025-07-11 19:57 | XMS_ITS | Encounter Summary ---
Author Organization [facility] Address [address] [place] [address] Phone Care Team Providers Care Motor Vehicle Dispatcher Name Role Phone Jigar Patel Primary Care Provider + Edi Montoya MD Unavailable Encounter Details Date Type Department Care Team (Late st Contact Info) Description 11/19/2023 Procedure Pass [facility] [address] [place] [address] Social History Tobacco Use Types Packs/Day Years [...] on filedocumented in this encounter Care Teams Motor Vehicle Dispatcher Relationship Specialty Start Date End Date Jigar Patel PA [address] [place] [phone] PCP - General 07/24/22 Edi Montoya MD [address] [place] [address] [place] [address] Pulmonary Disease 09/25/23 documented as of this encounter Additional Source Comments The information contained in this document represents components of the legal health record. It is not the complete legal health record.[facility]
--- OUTSIDE RECORDS SUMMARY | 2025-07-11 19:57 | XMS_ITS | Encounter Summary ---
Author Organization [facility] Address [address] [place] [address] Phone Care Team Providers Care Incident Response Consultant Name Role Phone Jigar Patel Primary Care Provider + Edi Montoya MD Unavailable Encounter Details Date Type Department Care Team (Late st Contact Info) Description 01/20/2023 Procedure Pass [facility] Periop [address] [place] [address] Social History Tobacco Use Types Packs/Day Years [...] documented as of this encounter Care Teams Incident Response Consultant Relationship Specialty Start Date End Date Jigar Patel PA [address] [place] [address] PCP - General 07/24/22 Edi Montoya MD [address] [place] [address] [place] [address] Pulmonary Disease 09/25/23 documented as of this encounter Additional Source Comments The information contained in this document represents components of the legal health record. It is not the complete legal health record.[facility]
== END 2025-07-11 14:29 | disposition home or self-care (01) ==
LOC: HO.HOP 14:29
PROVIDERS: PCP Physician Assistant; Visit Provider Clinical Nurse Specialist Psychiatric/Mental Health
DX: F33.9 Major depressive disorder, recurrent, unspecified (principal); F60.3 Borderline personality disorder; F41.1 Generalized anxiety disorder; F41.0 Panic disorder [episodic paroxysmal anxiety]; F43.12 Post-traumatic stress disorder, chronic
CPT/HCPCS: 99499

== ENCOUNTER 2025-07-26 10:22 | Outpatient (AMB) | payer OTHER, SELFPAY ==
--- NOTE | 2025-07-26 10:44 | MHC.PC.OV ---
Vital Signs 07/26/25 10:45 Height 5 ft 3 in Weight 207 lb 2 oz BMI 36.7 BP 128/68 Blood Pressure Location Lt brachial Position Sitting Pulse 86 Pulse Source Pulse Oximeter Temp 97.1 F Temp Source Temporal Artery Scan Pulse Oximetry (%) 98 Oxygen Delivery Method Room Air Intake Visit Reasons: f/u pain managment Intake Note: Patient is here to follow up on Pain management. Signals Intelligence Analysis Manager Required: No Supervisor Mail Carriers: Not Required per policy Accompanied by: Self / Same As Patient Allergies baclofen Allergy (Severe, Verified 07/26/25 11:06) GI upset dexamethasone Allergy (Severe, Verified 07/26/25 11:06) Vomiting doxycycline Allergy (Severe, Verified 07/26/25 11:06) Vomiting naproxen (Aleve) Allergy (Severe, Verified 07/26/25 11:06) Vomiting penicillin V Allergy (Severe, Verified 07/26/25 11:06) vomitting Sulfa (Sulfonamide Antibiotics) Allergy (Severe, Verified 07/26/25 11:06) Vomiting ibuprofen (Advil) Allergy (Intermediate, Verified 07/26/25 11:06) Vomiting codeine (Codeine) Allergy (Mild, Verified 07/26/25 11:06) VOMITING aspirin (ASPIRIN) Adverse Reaction (Severe, Verified 07/26/25 11:06) VOMITING Medication List - Last Reconciled 07/26/25 by Jigar Patel PA-C acetaminophen ER 650 mg PO Q12H PRN 30 days albuterol sulfate 90 mcg/actuation 2 inhalations inhalation Q6H PRN 30 days apixaban (Eliquis) 5 mg PO BID 30 days atorvastatin 20 mg PO DAILY 90 days cane As directed chair, wheel (Wheel chair) As directed cholecalciferol (vitamin D3) 25 mcg PO DAILY cyclobenzaprine 10 mg PO BEDTIME 30 days diaper,brief,adult,disposable As directed size large diazepam 10 mg (2 x 5 mg) PO BID diclofenac sodium 3% 1 appl topical BID 4 weeks diphenoxylate-atropine 2.5-0.025 mg 6 tabs orally daily; disposable gloves As directed [Electric scooter As directed] [Electric wheelchair As directed] escitalopram oxalate (Lexapro) 20 mg PO DAILY ymnonkciqkr-jnettxiop-gwlgcxzg 100-62.5-25 mcg (Trelegy Ellipta) 1 ea inhalation DAILY 30 days furosemide 40 mg PO BID gabapentin 300 mg PO BID gloves, latex with aloe vera (Aloe Vera Latex Gloves) 1 ea miscellaneous DAILY 30 days [hand held shawer spray As directed] levothyroxine 50 mcg PO DAILY lidocaine 5% 1 appl topical DAILY 30 days vhdrkn-bhvwxluj-vaomvqz 36,000-114,000- 180,000 unit (Creon) caps PO lisinopril 30 mg PO DAILY loperamide 4 mg (2 x 2 mg) PO QID PRN 30 days loratadine (Allergy Relief (loratadine)) 10 mg PO DAILY PRN menthol-zinc oxide 0.44-20.6 % (Calmoseptine) 1 appl topical QID 30 days multivitamin with folic acid 400 mcg (Tab-A-Imelda) 1 tab PO DAILY naloxone 4 mg/actuation (Narcan) 4 mg intranasal Q2M PRN 30 days octreotide,microspheres ER mg IM ondansetron HCl 8 mg PO QID 30 days oxycodone 5 mg PO Q6H PRN 14 days pantoprazole 40 mg PO DAILY potassium chloride ER (Klor-Con M) 20 mEq PO DAILY 30 days potassium chloride ER 20 mEq PO DAILY [pull ups As directed] quetiapine (Seroquel) 75 mg (3 x 25 mg) PO BEDTIME [right hand brace As directed] simethicone (Gas Relief (simethicone)) 125 mg PO TID PRN 30 days sitz bath ([employer] Sitz Bath) As directed thiamine HCl (vitamin B1) 100 mg PO DAILY 90 days walker (Ultra-Light Rollator misc) As directed [washable bedpads As directed] Tobacco use date assessed: 07/26/25 Dental Screening Dental Screen Date: 12/27/24 HPI f/u pain managment HPI Details Patient is a 65-year-old female here today for a follow-up visit. Patient recently admitted twice to [facility] for her recurrent bowel obstruction secondary to her hernias. She has been able to lose significant amount of weight in order to get reconstruction surgery at [facility] with Dr. Ferris. She has been refraining from smoking as well. She anticipates reconstructive abdominal surgery this year Pancreatic insufficiency: She has been started on new injection therapy to help her chronic diarrhea which has decreased the amount of frequency of bowel movements. Unfortunately her treating valve pipe irrigator has retired (Dr. Shabazz) She will be establishing care with a new valve pipe irrigator The symptoms reportedly stem from pancreatic insufficiency and ongoing pancreatitis. The patient describes persistent, severe abdominal pain radiating to the back, exacerbated by eating, and accompanied by frequent diarrhea described as malodorous and fatty, suggestive of malabsorption. The symptoms have been ongoing with little relief from current medication regimens. The patient also reports a history of chronic diarrhea that correlates with her diagnosis of pancreatic insufficiency, leading to significant weight loss and decreased functional status, affecting daily living activities. She has followed up with her valve pipe irrigator recently and is trying to get a new injection therapy approved for frequent stools. .. Abdominal hernia: She now has limited options for resolution of her hernias. She continues to be in pretty severe pain. Her last hospital admission was strictly for pain control related to her incisional hernias. As above she has not been deemed a surgical candidate. She has upcoming appointment with hernia specialist at [facility] for 2nd opinion though at this point there has been no relatively safe surgical option for her. --> unfortunately her quality of life is pretty poor and she is quite discouraged by this. We have agreed to start a opiate pain contract to help her with her pain in hopes that will help her quality of life for the time being. She will use acetaminophen 650 along with p.r.n. use of oxycodone 5 mg q.6 hours for her abdominal related pain. .. Osteoarthritis of the hands: The patient also reports arthritis, which affects her hands, causing them to close involuntarily and making it difficult to open them. She has been prescribed diclofenac in the past but requires prior authorization for the medication. The patient is considering occupational therapy for her hand arthritis to improve dexterity .. COPD: . Continues to have some shortness of breath at times which could be related to her recent pulmonary embolism and her Congestive heart failure.. Does follow a dampener operator here in [place] CHF: Recently diagnosed with heart failure with preserved ejection fraction, subsegmental PEs during her hospitalization. Has been started on Eliquis 5 mg b.i.d. and no overt signs of bleeding noted. She was started on furosemide 40 mg b.i.d.. She does have an upcoming appointment to establish care with a local hoe worker. She did see a hoe worker while in [place] and advised on starting statin therapy and re-establishing care with local cardiology. [facility] Medical History History of pulmonary embolism Congestive heart failure HTN (hypertension) HLD (hyperlipidemia) Major depression, recurrent, chronic Generalized anxiety disorder with panic attacks Bipolar disorder, mixed Nicotine dependence, cigarettes, uncomplicated Hypokalemia Flat feet, bilateral Chronic post-traumatic stress disorder (PTSD) Pulmonary nodules Chronic respiratory failure COPD (chronic obstructive pulmonary disease) Abdominal hernia Right lumbar radiculopathy Osteopenia Surgical History History of blepharoplasty History of ventral hernia repair History of resection of small bowel History of ileostomy History of hernia repair History of reversal of ileostomy History of colectomy History of colonoscopy History of umbilical hernia repair History of bladder surgery History of total abdominal hysterectomy and bilateral salpingo-oophorectomy History of cholecystectomy History of appendectomy History of tonsillectomy Family History Father Renal cell cancer Prostate cancer Leukemia Diabetes Hypertension Mother Hypertension Paternal Grandmother Colon cancer Maternal Grandfather Myocardial infarction Sister Lupus Daughter In good health Other Mental health disorder Social History Housing: Apartment Alcohol intake: never Patient Tobacco Use Status: Current someday Tobacco user Tobacco use type: Cigarette Cigarette Packs Per Day: 0.5 Cigarettes Per Day: 5 Years Smoked: (onset 17yo, 1/2-1ppd x 47yrs, 30pyh) e-Cigarette/Vaping Use: Never Used Second Hand Smoke Exposure: Yes service: No Current occupational status: disabled Current occupation: right hand dominant Cognitive needs: Yes (cane/walker) Hearing needs: No Vision needs: Yes (glasses) Questionnaire Thrive Questionnaire Date Thrive assessed: 02/28/25 I am a: Patient What is your living situation today?: I have a steady place to live Within the past 12 months, did the food you bought not last and you didn't have the money to get more?: I choose not to answer this question Within the past 12 months, did you worry whether your food would run out before you got money to buy more?: I choose not to answer this question Do you have trouble paying for medicines?: No Do you have trouble getting transportation to medical appointments?: No Do you have trouble paying your heating and electricity bill?: No Do you have trouble taking care of your child, family member or friend?: No Do you have trouble with day-to-day activities such as bathing, preparing meals, shopping, managing finances, etc.?: Yes Are you currently unemployed and looking for a job?: No Are you interested in more education?: No Please select the resources that you would like help with: None Currently or been in a relationship where the following occur: I choose not to answer THRIVE Score: 0 EMILY-7 AMB Questionnaire EMILY-7 Date EMILY - 7 assessed: 02/28/25 Source: Developed by Drs. Enoch Vallecillo, Anum Jung, Nathan Tiwari and colleagues, with an educational clifton from [employer]. Review of Systems Const Denies headache(s) Eyes Denies loss of vision ENT Denies vertigo, Denies dizziness, Denies headache(s) and Denies sore throat Card Denies chest pain, Denies leg edema and Denies lightheadedness Resp Denies cough, Denies hemoptysis and Denies wheezing GI Denies abdominal pain, Denies melena, Denies constipation, Denies diarrhea and Denies vomiting Denies urinary frequency, Denies dysuria and Denies urinary urgency Musc Denies arthralgias, Denies joint swelling, Denies numbness and Denies tingling Neuro Denies Abnormal speech present, Denies behavioral changes, Denies vertigo, Denies dizziness, Denies headache(s), Denies loss of vision, Denies memory loss, Denies numbness and Denies tingling Psych Denies anxiety, Denies behavioral changes, Denies depression, Denies memory loss and Denies panic attacks Patrick/Lymph Denies easy bleeding and Denies easy bruising Aller/Immun Denies wheezing Physical exam (Primary Care) Vital Signs: Last Vital Signs Temp 97.1 F 07/26/25 10:45 Pulse 86 07/26/25 10:45 BP 128/68 07/26/25 10:45 Pulse Ox 98 07/26/25 10:45 Oxygen Delivery Method Room Air 07/26/25 10:45 BMI result Body Mass Index 36.7 Tobacco/Smoking Status: Tobacco use Status Tobacco use date assessed 07/26/25 07/26/25 11:01 Patient Tobacco Use Status Current someday Tobacco 07/26/25 11:01 Tobacco use type Cigarette 07/26/25 11:01 e-Cigarette/Vaping Use Never Used 07/26/25 11:01 Thrive Assessment: Date of Thrive Assessment Date Thrive assessed 02/28/25 07/26/25 11:01 Currently or been in a relationship where the following occur: I choose not to answer Const General: healthy appearing, no acute distress, alert and awake Nutritional Appearance: well nourished Orientation/consciousness: oriented to person, oriented to place and oriented to time HENMT Ears: TM's normal bilaterally General nose exam: Normal nasal mucous membranes and turbinates present Eyes Conjunctivae: conjunctivae normal Sclerae: sclerae normal Pupils: Equal, round and reactive pupils present Neck Neck: Yes no lymphadenopathy and Yes no JVD Thyroid: Thyroid normal Carotids: no bruits Resp Effort & Inspection: normal respiratory effort and not tachypneic Auscultation: no crackles, no rales, no rhonchi and no wheezes Cardio Rate: regular rate Rhythm: regular rhythm Heart sounds: no murmurs and normal S1 and S2 GI Other: LARGE ABDOMINAL HERNIA MASS Palpation (GI): Soft to palpation, Tenderness to palpation present (GI), no hepatomegaly and no splenomegaly Auscultation: normal bowel sounds Skin General skin exam: no rashes or lesions noted and dry skin Neuro General: oriented to person, oriented to place and oriented to time Cranial nerves: Yes Equal, round and reactive pupils present Speech: No Abnormal speech present Gait exam (Neuro): Normal gait present Motor exam (neuro): no tremor noted Extrem Right upper extremity: full ROM Left upper extremity: full ROM Right lower extremity: full ROM; no edema Left lower extremity: full ROM; no edema Psych Mental Status: mental status grossly normal Speech and movement: Normal speech and movement present Affect: normal affect Attitude: cooperative Thought process: Normal thought process present Coding Level of Care Code Est Pt Level 4 (24532) Diagnoses Recurrent incisional hernia K43.2 Essential hypertension I10 Hypertension type: essential hypertension Uncomplicated opioid dependence F11.20 Substance use status: uncomplicated Chronic diastolic congestive heart failure I50.32 Heart failure chronicity: chronic Heart failure type: diastolic Degenerative lumbar spinal stenosis M48.061 Primary osteoarthritis of both hands M19.041; M19.042 Laterality: bilateral Osteoarthritis type: primary Assessment & Plan Assessment & Plan (1) Recurrent incisional hernia: Code(s): K43.2 - Incisional hernia without obstruction or gangrene Category: Medical Plan: Continues to have moderate to severe abdominal hernia pain. She reports her pain is almost intolerable and she did find that oxycodone has been helpful. She again was recently seen [facility] for abdominal pain and diarrhea. She believes her hernias getting larger. CT of abdomen does indeed show incisional hernias. SHE IS WORKING WITH A NEW COURTROOM REPORTER WITH INJECTIONS THAT HAS HELPFUL ON REDUCING BOWEL FREQUENCY She is now working with a surgeon at [facility]. Will perform reconstructive hernia surgery when Yu is able to lose 7 more lb to be under 200 lb. She has been refraining from smoking We did discuss the habit-forming nature and dependency to opiates and she understands and will use oxycodone 10 mg on an as needed basis. HAS A VERY LIMITED QUALITY OF LIFE DUE TO HER CHRONIC ABDOMINAL PAIN RELATED TO HER HERNIAS AND FREQUENCY OF HER BOWEL MOVEMENTS. SHE DOES HAVE HELP AT HOME WELL WITH A GARMENT FOLDER WILL CONTINUE USE OXYCODONE 5-10 MG P.R.N. FOR HER PAIN ALONG WITH THE ACETAMINOPHEN 650 MG. (2) HTN (hypertension): Code(s): I10 - Essential (primary) hypertension Category: Medical Qualifiers: Hypertension type: essential hypertension Qualified Code(s): I10 - Essential (primary) hypertension Plan: Patient's blood pressure acceptable today in office. Will continue her current dose of antihypertensive medication with goal blood pressure to remain below 140/90. (3) Opiate dependence: Code(s): F11.20 - Opioid dependence, uncomplicated Category: Medical Qualifiers: Substance use status: uncomplicated Qualified Code(s): F11.20 - Opioid dependence, uncomplicated Plan: Patient continues with low-dose oxycodone for the use of her abdominal pain secondary to her severe abdominal hernia (4) Congestive heart failure: Code(s): I50.9 - Heart failure, unspecified Category: Medical Qualifiers: Heart failure chronicity: chronic Heart failure type: diastolic Qualified Code(s): I50.32 - Chronic diastolic (congestive) heart failure Plan: Seems to be low compensated at this time. She continues on furosemide 40 mg b.i.d. (5) Degenerative lumbar spinal stenosis: Code(s): M48.061 - Spinal stenosis, lumbar region without neurogenic claudication Category: Medical Plan: Patient has gotten evaluation for an electric wheelchair, has severe lower lumbar spinal stenosis and continues with severe abdominal hernia which causes her not to be able to be mobile. She needs a new script given to her insurance for electric wheelchair (6) Osteoarthritis, hand: Code(s): M19.049 - Primary osteoarthritis, unspecified hand Category: Medical Qualifiers: Laterality: bilateral Osteoarthritis type: primary Qualified Code(s): M19.041 - Primary osteoarthritis, right hand; M19.042 - Primary osteoarthritis, left hand Plan: Patient continues with hand pain swelling and contractures related to osteoarthritis. Would benefit from diclofenac 3% topical treatment for her hand osteoarthritis Medications: New [SHOE ARCH SUPPORT] As directed 1 ea 0RF Q66.70 - Congenital pes cavus, unspecified foot [ABDOMINAL COMPRESSION BELT] As directed 1 ea 0RF K43.2 - Incisional hernia without obstruction or gangrene [SAFETY GRAB BAR] As directed 1 ea 0RF M47.816 - Spondylosis without myelopathy or radiculopathy, lumbar region Refilled [hand held shower head sray] As directed 1 ea 0RF G62.9 - Polyneuropathy, unspecified, K43.2 - Incisional hernia without obstruction or gangrene, M48.061 - Spinal stenosis, lumbar region without neurogenic claudication diclofenac sodium 3% 1 appl topical BID 100 grams 3RF 4 weeks M19.041 - Primary osteoarthritis, right hand [Electric wheelchair] As directed 1 ea 0RF M47.16 - Other spondylosis with myelopathy, lumbar region oxycodone 5 mg PO Q6H PRN 56 tabs 0RF pain (scale score 7-10) 14 days K43.2 - Incisional hernia without obstruction or gangrene
[2025-07-26 10:45] VITALS: BP 128/68; PULSE 86; TEMP 36.2; O2SAT 98; BMI 36.7
--- OUTSIDE RECORDS SUMMARY | 2025-07-26 11:32 | XMS_ITS | Encounter Summary ---
Author Organization [facility] Address [address] [place] [address] Phone Care Team Providers Care Costume Draper Name Role Phone Jigar Patel Primary Care Provider + Edi Montoya MD Unavailable Encounter Details Date Type Department Care Team (Late st Contact Info) Description 01/20/2023 Procedure Pass [facility] Periop [address] [place] [address] Social History Tobacco Use Types Packs/Day Years [...] documented as of this encounter Care Teams Costume Draper Relationship Specialty Start Date End Date Jigar Patel PA [address] [place] [address] PCP - General 07/24/22 Edi Montoya MD [address] [place] [address] [place] [address] Pulmonary Disease 09/25/23 documented as of this encounter Additional Source Comments The information contained in this document represents components of the legal health record. It is not the complete legal health record.[facility]
--- OUTSIDE RECORDS SUMMARY | 2025-07-26 11:32 | XMS_ITS | Encounter Summary ---
Author Organization [facility] Address [address] [place] [address] Phone Care Team Providers Care Conference Reservationist Name Role Phone Jigar Patel Primary Care Provider + Edi Montoya MD Unavailable [phone] Encounter Details Date Type Department Care Team (Late st Contact Info) Description 01/20/2023 Procedure Pass [facility] Periop [address] [place] [address] Social History Tobacco Use Types Packs/Day Years [...] documented as of this encounter Care Teams Conference Reservationist Relationship Specialty Start Date End Date Jigar Patel PA [address] [place] [address] PCP - General 07/24/22 Edi Montoya MD [address] [place] [address] [place] [address] Pulmonary Disease 09/25/23 documented as of this encounter Additional Source Comments The information contained in this document represents components of the legal health record. It is not the complete legal health record.[facility]
--- OUTSIDE RECORDS SUMMARY | 2025-07-26 11:32 | XMS_ITS | Encounter Summary ---
Author Organization [facility] Address [address] [place] [address] Phone Care Team Providers Care Payment Processor Name Role Phone Jigar Patel Primary Care Provider + Edi Montoya MD Unavailable [phone] Encounter Details Date Type Department Care Team (Late st Contact Info) Description 10/22/2023 Procedure Pass [facility] Cross Sectional Interventional Radiology [address] [place] [address] Social History Tobacco Use Types Packs/Day Years [...] documented as of this encounter Care Teams Payment Processor Relationship Specialty Start Date End Date Jigar Patel PA [address] [place] [address] PCP - General 07/24/22 Edi Montoya MD [address] [place] [address] [place] [address] Pulmonary Disease 09/25/23 documented as of this encounter Additional Source Comments The information contained in this document represents components of the legal health record. It is not the complete legal health record.[facility]
--- OUTSIDE RECORDS SUMMARY | 2025-07-26 11:32 | XMS_ITS | Encounter Summary ---
Author Organization [facility] Address [address] [place] [address] Phone Care Team Providers Care Trace Evidence Technician Name Role Phone Jigar Patel Primary Care Provider + Edi Montoya MD Unavailable [phone] Encounter Details Date Type Department Care Team (Late st Contact Info) Description 11/25/2023 [facility] [place] [address] [place] [address] Social History Tobacco Use Types Packs/Day Years [...] on filedocumented in this encounter Care Teams Trace Evidence Technician Relationship Specialty Start Date End Date Jigar Patel PA [address] [place] [address] PCP - General 07/24/22 Edi Montoya MD [address] [place] [address] [place] [address] Pulmonary Disease 09/25/23 documented as of this encounter Additional Source Comments The information contained in this document represents components of the legal health record. It is not the complete legal health record.[facility]
--- OUTSIDE RECORDS SUMMARY | 2025-07-26 11:32 | XMS_ITS | Encounter Summary ---
Author Organization [facility] Address [address] [place] [address] Phone Care Team Providers Care Blue Split Trimmer Name Role Phone Jigar Patel Primary Care Provider + Edi Montoya MD Unavailable Encounter Details Date Type Department Care Team (Late st Contact Info) Description 04/17/2023 Procedure Pass [facility] Periop [address] [place] [address] Social History Tobacco Use Types Packs/Day Years [...] documented as of this encounter Care Teams Blue Split Trimmer Relationship Specialty Start Date End Date Jigar Patel PA [address] [place] [address] PCP - General 07/24/22 Edi Montoya MD [address] [place] [address] [place] [address] Pulmonary Disease 09/25/23 documented as of this encounter Additional Source Comments The information contained in this document represents components of the legal health record. It is not the complete legal health record.[facility]
--- OUTSIDE RECORDS SUMMARY | 2025-07-26 11:33 | XMS_ITS | Encounter Summary ---
Author Organization [facility] Address [address] [place] [address] Phone Care Team Providers Care Host And Hostess Name Role Phone Jigar Patel Primary Care Provider + Edi Montoya MD Unavailable Encounter Details Date Type Department Care Team (Late st Contact Info) Description 10/02/2022 Procedure Pass [facility] Periop [address] [place] [address] Social History Tobacco Use Types Packs/Day Years [...] documented as of this encounter Care Teams Host And Hostess Relationship Specialty Start Date End Date Jigar Patel PA [address] [place] [address] PCP - General 07/24/22 Edi Montoya MD [address] [place] [address] [place] [address] Pulmonary Disease 09/25/23 documented as of this encounter Additional Source Comments The information contained in this document represents components of the legal health record. It is not the complete legal health record.[facility]
--- OUTSIDE RECORDS SUMMARY | 2025-07-26 11:33 | XMS_ITS | Encounter Summary ---
Author Organization [facility] Address [address] [place] [address] Phone Care Team Providers Care Brazer Resistance Name Role Phone Jigar Patel Primary Care Provider + Edi Montoya MD Unavailable Encounter Details Date Type Department Care Team (Late st Contact Info) Description 10/10/2022 Procedure Pass [facility] [address] [place] [address] Social History Tobacco Use Types Packs/Day Years [...] 5:20 PM EST Callie Meza, RN * [place] Suicide Severity Rating Scale (Screener/Recent Self-Report) Question [...] documented as of this encounter Care Teams Brazer Resistance Relationship Specialty Start Date End Date Jigar Patel PA [address] [place] [address] PCP - General 07/24/22 Edi Montoya MD [address] [place] [address] [place] [address] Pulmonary Disease 09/25/23 documented as of this encounter Additional Source Comments The information contained in this document represents components of the legal health record. It is not the complete legal health record.[facility]
--- OUTSIDE RECORDS SUMMARY | 2025-07-26 11:33 | XMS_ITS | Encounter Summary ---
Author Organization [facility] Address [address] [place] [address] Phone Care Team Providers Care Propagation Manager Name Role Phone Jigar Patel Primary Care Provider + Edi Montoya MD Unavailable Encounter Details Date Type Department Care Team (Late st Contact Info) Description 09/25/2023 Procedure Pass [facility] Echocardiography [address] [place] [address] Social History Tobacco Use Types Packs/Day Years [...] documented as of this encounter Care Teams Propagation Manager Relationship Specialty Start Date End Date Jigar Patel PA [address] [place] [address] PCP - General 07/24/22 Edi Montoya MD [address] [place] [address] [place] [address] Pulmonary Disease 09/25/23 documented as of this encounter Additional Source Comments The information contained in this document represents components of the legal health record. It is not the complete legal health record.[facility]
--- OUTSIDE RECORDS SUMMARY | 2025-07-26 11:33 | XMS_ITS | Clinical Summary ---
Author Organization [facility] [address] [facility] Address [address] [place] [address] Phone Care Team Providers Care Vinyl Hanger Name Role Phone Jigar Patel Primary Care [...] stir well and administer immediately). 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 Status post cholecystectomy 06/07/2025 Diarrhea due to malabsorption 06/07/2025 Functional diarrhea 10/26/2024 Ventral hernia 10/22/2024 Intraabdominal fluid collection 10/21/2023 SBO (small bowel obstruction) ([facility] [place], [facility] V28) 10/10/2022 Abdominal pain 08/22/2022 Incisional hernia, without obstruction or gangre ne 05/17/2022 Smoking addiction 10/29/2021 Anxiety disorder 10/29/2021 Incontinence 10/29/2021 Hyponatremia 10/29/2021 Gastric reflux 10/29/2021 Gastroparesis 10/29/2021 Hyperglycemia 10/29/2021 Irritable bowel syndrome 10/29/2021 Parasomnia 10/29/2021 Peristomal dermatitis 10/29/2021 Psychogenic polydipsia 10/29/2021 Tardive dyskinesia 10/29/2021 Asthma 10/29/2021 Atypical migraine 10/29/2021 Ileostomy dysfunction ([facility], [facility] V28) 10/13/2021 Hypothyroidism 03/05/2021 Hypertension 03/05/2021 Chronic narcotic dependence ([facility]24, [facility] V28) 03/05/2021 Schizoaffective disorder ([facility] V24, [facility] V 28) 03/05/2021 Chronic constipation 02/22/2021 COPD (chronic obstructive pu lmonary disease) ([facility] [place], [facility] V28) 01/11/2019 KALE (obstructive sleep apnea) 01/11/2019 [...] Description 07/04/2025 Treatment Gastroenterology - [address] [facility] [address] [address] Salud Forman PA 06/09/2025 Telephone Gastroenterology - [address] [phone] Edu Pretty MD 06/07/2025 10:40 AM EDT Office Visit Gastroenterology - [address] [address] Edu Pretty MD Diarrhea due to malabsorption (Primary Dx) 05/12/2025 Telephone Gastroenterology - [address] [facility] [address] [address] Edu Pretty MD from Last 3 Months Surgical History Surgery Date Site/Laterality Comments HERNIA REPAIR PROCEDURE: [place] REPAIR FIRST ABDOMINAL WALL HERNIA OTHER SURGICAL [...] Date Smoking Tobacco: Some Days Cigarettes 0.3 47.3 Started: 04/13/1978 Smokeless Tobacco: Never Tobacco Cessation:Ready to Q uit: Not Asked; Counseling Given: Not Answered Comments:4-5 a day Alcohol Use Standard Drinks/Week Comments No 0 (1 standard drink = 0.6 oz pur e alcohol) Interpersonal Safety Answer Date Record ed Physical Abuse Unrecognized value 11/08/2024 Verbal Abuse Unrecognized value 11/08/2024 Comments No Sex and Gender Information [...] Upcoming Encounters Date Type Department Care Team ([facility] st Contact Info) Description 09/13/2025 9:20 AM EST Office Visit Gastroenterology - 299 [facility] [address] [phone] Edu Pretty MD [address] [address] Health Maintenance Due Date Last Done Comments [...] AM EDT) Anatomical Region Laterality Modality Endoscopy us Historical Provider GI~PROCEDURE ORDERABLES F inal Result * Hepatitis C antibody (02/14/2025 9:42 AM EDT) [facility] Hepatitis C Antibody Negative Negative LAB CHEMISTRY METHOD 02/14/2025 2:19 PM EDT [facility] Blood Venous blood specimen / Unknown Venipuncture / Unknown 02/14/2025 9:42 AM EDT 02/14/2025 10:11 AM EDT Garrett Shabazz MD LAB BLOOD ORDERABLES Final Resu lt [facility] [address] [place] [address], * (ABNORMAL) Comprehensive metabolic panel (01/19/2025 10:59 AM EDT) [facility] Sodium 128(L) 133 - 145 mmol/L LAB CHEMISTRY METHOD 01/19/2025 2:51 PM EDT [facility] Potassium 3.4(L) 3.5 - 5.5 mmol/L LAB CHEMISTRY METHOD 01/19/2025 2:51 PM EDT [facility] Chloride 91(L) 96 - 110 mmol/L LAB CHEMISTRY METHOD 01/19/2025 2:51 PM EDT [facility] CO2 33(H) 21 - 32 mmol/L LAB CHEMISTRY METHOD 01/19/2025 2:51 PM [facility] Anion Gap 4 3 - 11 LAB CHEMISTRY METHOD 01/19/2025 2:51 PM [facility] Glucose 78 70 - 100 mg/dL LAB CHEMISTRY METHOD 01/19/2025 2:51 PM [facility] BUN 3(L) 5 - 25 mg/dL LAB CHEMISTRY METHOD 01/19/2025 2:51 PM [facility] Creatinine 0.60 0.50 - 1.10 mg/dL LAB CHEMISTRY METHOD 01/19/2025 2:51 PM [facility] eGFR 102 >=60 mL/min/1. 73m2 LAB CHEMISTRY METHOD 01/19/2025 2:51 PM [facility] Comment:Calculation based on the Chronic Kidney Disease Epidemiology Collaboration (CKD-EPI) equation refit without adjustment for race. BUN/Creatinine Ratio 5.0 LAB CHEMISTRY METHOD 01/19/2025 2:51 PM [facility] Calcium 9.0 8.5 - 10.5 mg/dL LAB CHEMISTRY METHOD 01/19/2025 2:51 PM [facility] AST (SGOT) 18 10 - 42 unit/L LAB CHEMISTRY METHOD 01/19/2025 2:51 PM [facility] ALT (SGPT) 25 10 - 60 unit/L LAB CHEMISTRY METHOD 01/19/2025 2:51 PM [facility] Alkaline Phosphatase 133(H) 42 - 121 unit/L LAB CHEMISTRY METHOD 01/19/2025 2:51 PM [facility] Total Protein 6.7 6.0 - 8.0 g/dL LAB CHEMISTRY METHOD 01/19/2025 2:51 PM [facility] Albumin 3.7 3.2 - 5.0 g/dL LAB CHEMISTRY METHOD 01/19/2025 2:51 PM [facility] Total Bilirubin 0.5 0.0 - 1.4 mg/dL LAB CHEMISTRY METHOD 01/19/2025 2:51 PM EDT [facility] Blood Venous blood specimen / Unknown Venipuncture / Unknown 01/19/2025 10:59 AM EDT 01/19/2025 11:33 AM EDT us Garrett Shabazz MD LAB BLOOD ORDERABLES Final Resu lt [facility] [address] [place] [address], * COLONOSCOPY Anesthesia - MAC; [facility] ENDOSCOPY (11/08/2024 8:55 AM EST) Anatomical Region [...] pathology results. Narrative 11/08/2024 8:59 AM EST [facility] Patient Name: Kain Dumont Procedure Date: [...] for histology. Procedure Code(s): --- Professional --- 61477, Colonoscopy, flexible; with biopsy, single or multiple CPT copyright 2020 [employer]. All rights reserved. The codes documented in this report are preliminary and upon glass setter review may be revised to meet current compliance requirements. MD Garrett Do MD 11/08/2024 8:59:29 AM This report has been signed electronically.Garrett Shabazz MD Number of Addenda: 0 Note Initiated On: 11/08/2024 8:40 AM Scope In: Scope Out: Endoscopy Department at [facility] - [address] [place] [id number] Procedure Note Garrett Shabazz MD - 11/08/2024 [facility] Patient Name: Kain Dumont Procedure Date: [...] Findings: There was evidence of a prior udv-gu-aqmmswe-colonic anastomosis in the sigmoid colon. This was patentand was characterized by healthy appearing mucosa. The anastomosis was traversed. The exam was otherwise without abnormality ondirect and retroflexion views. Clara-anal excoriationsnoted. Biopsies were taken with a cold forceps in therectum, in the sigmoid colon and in the distal ileum for histology. Procedure Code(s): --- Professional --- 70049, Colonoscopy, flexible; with biopsy, singleor multiple CPT copyright 2020 [employer]. All rights reserved. The codes documented in this report are preliminary and upon glass setter reviewmay be revised to meet current compliance requirements. MD Garrett Do MD 11/08/2024 8:59:29 AM This report has been signed electronically.Garrett Shabazz MD Number of Addenda: 0 Note Initiated On: 11/08/2024 8:40 AM Scope In: Scope Out: Endoscopy Department at [facility] - [address] [place] [id number] IMPRESSION: - Patent end-to-end ileo-colonic anastomosis, characterized [...] Group ID:ICO Type:Not on file Address: [facility] [address] [place] [id number] Advance Directives Documents on File Type Date Recorded Patient Atg Architect Expl anation Health Care Decision (hx) 11/03/2022 [...] currently active code status orders. Care Teams Vinyl Hanger Relationship Specialty Start Date End Date Jigar Patel PA [address] [place] [phone] PCP - General 02/26/23
--- OUTSIDE RECORDS SUMMARY | 2025-07-26 11:33 | XMS_ITS | Encounter Summary ---
Author Organization [facility] Address [address] [place] [address] Phone Care Team Providers Care Russian Language Instructor Name Role Phone Jigar Patel Primary Care Provider + Edi Montoya MD Unavailable [phone] Encounter Details Date Type Department Care Team (Late st Contact Info) Description 10/02/2023 Procedure Pass [facility] Periop [address] [place] [address] Social History Tobacco Use Types Packs/Day Years [...] 10/03/2023 3:00 AM Luisa Don RN * [place] Suicide Severity Rating Scale (Screener/Recent Self-Report) Question [...] documented as of this encounter Care Teams Russian Language Instructor Relationship Specialty Start Date End Date Jigar Patel PA [address] [place] [address] PCP - General 07/24/22 Edi Montoya MD [address] [place] [address] [place] [address] Pulmonary Disease 09/25/23 documented as of this encounter Additional Source Comments The information contained in this document represents components of the legal health record. It is not the complete legal health record.[facility]
--- OUTSIDE RECORDS SUMMARY | 2025-07-26 11:33 | XMS_ITS | Encounter Summary ---
Author Organization [facility] Address [address] [place] [address] Phone Care Team Providers Care Cut File Clerk Name Role Phone Jigar Patel Primary Care Provider + Edi Montoya MD Unavailable Encounter Details Date Type Department Care Team (Late st Contact Info) Description 10/05/2023 Procedure Pass [facility] [address] [place] [address] Social History Tobacco Use Types Packs/Day Years [...] documented as of this encounter Care Teams Cut File Clerk Relationship Specialty Start Date End Date Jigar Patel PA [address] [place] [address] PCP - General 07/24/22 Edi Montoya MD [address] [place] [address] [place] [address] Pulmonary Disease 09/25/23 documented as of this encounter Additional Source Comments The information contained in this document represents components of the legal health record. It is not the complete legal health record.[facility]
--- OUTSIDE RECORDS SUMMARY | 2025-07-26 11:33 | XMS_ITS | Encounter Summary ---
Author Organization [facility] Address [address] [place] [address] Phone Care Team Providers Care Him Assistant Name Role Phone Jigar Patel Primary Care Provider + Edi Montoya MD Unavailable [phone] Encounter Details Date Type Department Care Team (Late st Contact Info) Description 11/19/2023 Procedure Pass [facility] [address] [place] [address] Social History Tobacco Use Types Packs/Day Years [...] on filedocumented in this encounter Care Teams Him Assistant Relationship Specialty Start Date End Date Jigar Patel PA [address] [place] [address] PCP - General 07/24/22 Edi Montoya MD [address] [place] [address] [place] [address] Pulmonary Disease 09/25/23 documented as of this encounter Additional Source Comments The information contained in this document represents components of the legal health record. It is not the complete legal health record.[facility]
--- OUTSIDE RECORDS SUMMARY | 2025-07-26 11:33 | XMS_ITS | Encounter Summary ---
Author Organization [facility] Address [address] [place] [address] Phone Care Team Providers Care Medical Lab Specialist Name Role Phone Jigar Patel Primary Care Provider + Edi Montoya MD Unavailable Encounter Details Date Type Department Care Team (Late st Contact Info) Description 08/21/2022 Procedure Pass [facility] [address] [place] [address] Social History Tobacco Use Types Packs/Day Years [...] 12:15 PM EDT Natalie Calloway RN * [place] Suicide Severity Rating Scale (Screener/Recent Self-Report) Question [...] documented as of this encounter Care Teams Medical Lab Specialist Relationship Specialty Start Date End Date Jigar Patel PA [address] [place] [address] PCP - General 07/24/22 Edi Montoya MD [address] [place] [address] [place] [address] Pulmonary Disease 09/25/23 documented as of this encounter Additional Source Comments The information contained in this document represents components of the legal health record. It is not the complete legal health record.[facility]
--- OUTSIDE RECORDS SUMMARY | 2025-07-26 11:33 | XMS_ITS | Encounter Summary ---
Author Organization [facility] Address [address] [place] [address] Phone Care Team Providers Care Turret Punch Operator Name Role Phone Jigar Patel Primary Care Provider + Edi Montoya MD Unavailable Encounter Details Date Type Department Care Team (Late st Contact Info) Description 04/17/2023 Procedure Pass [facility] Periop [address] [place] [address] Social History Tobacco Use Types Packs/Day Years [...] documented as of this encounter Care Teams Turret Punch Operator Relationship Specialty Start Date End Date Jigar Patel PA [address] [place] [address] PCP - General 07/24/22 Edi Montoya MD [address] [place] [address] [place] [address] Pulmonary Disease 09/25/23 documented as of this encounter Additional Source Comments The information contained in this document represents components of the legal health record. It is not the complete legal health record.[facility]
== END 2025-07-26 11:35 | disposition home or self-care (01) ==
LOC: HO.HMCH 10:23
PROVIDERS: PCP Internal Medicine; Visit Provider Physician Assistant
DX: K43.2 Incisional hernia without obstruction or gangrene (principal); I10 Essential (primary) hypertension; F11.20 Opioid dependence, uncomplicated; I50.32 Chronic diastolic (congestive) heart failure; M48.061 Spinal stenosis, lumbar region without neurogenic claudication; M19.041 Primary osteoarthritis, right hand; M19.042 Primary osteoarthritis, left hand

== ENCOUNTER → 2025-07-26 10:22 | Outpatient (BNVA) | payer OTHER, SELFPAY | PROVIDERS: PCP Internal Medicine; Visit Provider Physician Assistant | DX: M19.042 Primary osteoarthritis, left hand (principal); M19.041 Primary osteoarthritis, right hand; M48.061 Spinal stenosis, lumbar region without neurogenic claudication; J44.9 Chronic obstructive pulmonary disease, unspecified; K43.2 Incisional hernia without obstruction or gangrene; I11.0 Hypertensive heart disease with heart failure; I50.32 Chronic diastolic (congestive) heart failure; K86.89 Other specified diseases of pancreas; Q66.70 Congenital pes cavus, unspecified foot; M47.816 Spondylosis without myelopathy or radiculopathy, lumbar region; G62.9 Polyneuropathy, unspecified; M47.16 Other spondylosis with myelopathy, lumbar region; F11.20 Opioid dependence, uncomplicated; Z79.01 Long term (current) use of anticoagulants | CPT/HCPCS: 99212 ==

== ENCOUNTER 2025-09-06 13:34 | Outpatient (AMB) | payer OTHER, SELFPAY ==
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
--- OUTSIDE RECORDS SUMMARY | 2025-09-06 15:14 | XMS_ITS | Encounter Summary ---
Author Organization [facility] Address [address] [place] [address] Phone Care Team Providers Care Case Packer Name Role Phone Jigra Patel Primary Care Provider + Edi Montoya MD Unavailable Encounter Details Date Type Department Care Team (Late st Contact Info) Description 10/22/2023 Procedure Pass [facility] Cross Sectional Interventional Radiology [address] [place] [address] Social History Tobacco Use Types Packs/Day Years [...] documented as of this encounter Care Teams Case Packer Relationship Specialty Start Date End Date Jigar Patel PA [address] [place] [address] PCP - General 07/24/22 Edi Montoya MD [address] [place] [address] [place] [address] Pulmonary Disease 09/25/23 documented as of this encounter Additional Source Comments The information contained in this document represents components of the legal health record. It is not the complete legal health record.[facility]
--- OUTSIDE RECORDS SUMMARY | 2025-09-06 15:14 | XMS_ITS | Encounter Summary ---
Author Organization [facility] Address [address] [place] [address] Phone Care Team Providers Care Creative Services Coordinator Name Role Phone Jigar Patel Primary Care Provider + Edi Montoya MD Unavailable Encounter Details Date Type Department Care Team (Late st Contact Info) Description 01/20/2023 Procedure Pass [facility] Periop [address] [place] [address] Social History Tobacco Use Types Packs/Day Years [...] documented as of this encounter Care Teams Creative Services Coordinator Relationship Specialty Start Date End Date Jigar Patel PA [address] [place] [address] PCP - General 07/24/22 Edi Montoya MD [address] [place] [address] [place] [address] Pulmonary Disease 09/25/23 documented as of this encounter Additional Source Comments The information contained in this document represents components of the legal health record. It is not the complete legal health record.[facility]
--- OUTSIDE RECORDS SUMMARY | 2025-09-06 15:14 | XMS_ITS | Encounter Summary ---
Author Organization [facility] Address [address] [place] [address] Phone Care Team Providers Care Drilling Manager Name Role Phone Jigar Patel Primary Care Provider + Edi Montoya MD Unavailable Encounter Details Date Type Department Care Team (Late st Contact Info) Description 04/17/2023 Procedure Pass [facility] Periop [address] [place] [address] Social History Tobacco Use Types Packs/Day Years [...] documented as of this encounter Care Teams Drilling Manager Relationship Specialty Start Date End Date Jigar Patel PA [address] [place] [address] PCP - General 07/24/22 Edi Montoya MD [address] [place] [address] [place] [address] Pulmonary Disease 09/25/23 documented as of this encounter Additional Source Comments The information contained in this document represents components of the legal health record. It is not the complete legal health record.[facility]
--- OUTSIDE RECORDS SUMMARY | 2025-09-06 15:14 | XMS_ITS | Encounter Summary ---
Author Organization [facility] Address [address] [place] [address] Phone Care Team Providers Care Investor Relations Associate Name Role Phone Jigar Patel Primary Care Provider + Edi Montoya MD Unavailable Encounter Details Date Type Department Care Team (Late st Contact Info) Description 01/20/2023 Procedure Pass [facility] Periop [address] [place] [address] Social History Tobacco Use Types Packs/Day Years [...] documented as of this encounter Care Teams Investor Relations Associate Relationship Specialty Start Date End Date Jigar Patel PA [address] [place] [address] PCP - General 07/24/22 Edi Montoya MD [address] [place] [address] [place] [address] Pulmonary Disease 09/25/23 documented as of this encounter Additional Source Comments The information contained in this document represents components of the legal health record. It is not the complete legal health record.[facility]
--- OUTSIDE RECORDS SUMMARY | 2025-09-06 15:14 | XMS_ITS | Encounter Summary ---
Author Organization [facility] Address [address] [place] [address] Phone Care Team Providers Care Washer And Crusher Tender Name Role Phone Jigar Patel Primary Care Provider + Edi Montoya MD Unavailable Encounter Details Date Type Department Care Team (Late st Contact Info) Description 11/25/2023 Procedure Pass [facility], [place] [address] [place] [address] Social History Tobacco Use Types Packs/Day Years [...] on filedocumented in this encounter Care Teams Washer And Crusher Tender Relationship Specialty Start Date End Date Jigar Patel PA [address] [place] [address] PCP - General 07/24/22 Edi Montoya MD [address] [place] [address] [place] [address] Pulmonary Disease 09/25/23 documented as of this encounter Additional Source Comments The information contained in this document represents components of the legal health record. It is not the complete legal health record.[facility]
--- OUTSIDE RECORDS SUMMARY | 2025-09-06 15:15 | XMS_ITS | Clinical Summary ---
Author Organization [facility] Address [address] [facility] [address] [place] [address] Phone Care Team Providers Care Financial Services Internship Name Role Phone Jigar Patel Primary Care Provider + Edi Montoya MD Unavailable [phone] Allergies Active Allergy Reactions Criticality Noted Date [...] Orientation Straight 07/24/2022 2: 32 PM EDT Last Filed Vital Signs Vital [...] patient's age to complete this topic IPV VACCINES Aged Out No longer eligi ble based on patient's age to complete this topic MENINGOCOCCAL VACCINES (ACWY) Aged Out No longer eligible based on patient's age to complete this topic MENINGOCOCCAL VACCINES (B) Aged Out N o longer eligible based on patient's age to complete this topic Medical Devices Implanted Type Area Commanding Officer Motorized Squad Device Identifier Shelf Expiration Date Model / Serial / Lot Mesh Surgical [id number] [employer] [address] Pocketed Bioresorbable Open Positioning System Oval - [id number] Implanted:Qty: 1 on 10/02/2023 by Chintan Figueroa MD at [facility] N/A: Abdomen [employer] 12/24/2024 [id number] / [id number] / [id number] Procedures Procedure Name Priority Date/Time Associated Diagnosis Comments POTASSIUM Routine 10/25/2023 5:23 AM EST BASIC METABOLIC PANEL (BMP) Routine 10/24/2023 7:18 AM EST LIPID PANEL Routine 10/01/2023 12:11 PM EST Preoperative cardiovascular examination from Last 3 Months or Most Recently Relevant to Health Maintenance Results * (ABNORMAL) Potassium (10/25/2023 5:23 AM EST) POTASSIUM 3.3(L) 3.4 - 5.1 mmol/L [facility] Blood 10/25/2023 5:23 AM EST 10/25/2023 5:39 AM EST us Bolivar Meyer MD, MPH LAB BLOOD BKR O KOSTA Final Result [facility] [address] [place] [address] * (ABNORMAL) Basic metabolic panel (10/24/2023 7:18 AM EST) SODIUM 134(L) 136 - 145 mmol/L [facility] POTASSIUM 3.0(L) 3.4 - 5.1 mmol/L [facility] CHLORIDE 93(L) 98 - 107 mmol/L [facility] CO2 30 22 - 31 mmol/L [facility] BUN <3(L) 6 - 23 mg/dL [facility] CREATININE 0.30(L) 0.50 - 1.20 mg/dL [facility] GLUCOSE 99 70 - 100 mg/dL [facility] CALCIUM 8.1(L) 8.8 - 10.7 mg/dL [facility] EGFR >120 >59 mL/min/1. 73m2 [facility] Comment:Estimated glomerular filtration rate calculated using the CKD-EPI refit equation. ANION GAP 11 7 - 17 mmol/L [facility] Blood 10/24/2023 7:18 AM EST 10/24/2023 8:13 AM EST Bolivar Meyer MD, MPH LAB BLOOD BKR O RDERABLES Final Result Performing Organization Address [facility] de Phone Number [facility] [address] [place] [address] * (ABNORMAL) Lipid panel (10/01/2023 12:11 PM EST) CHOLESTEROL 166 <200 mg/dL [facility] TRIGLYCERIDES 152(H) 35 - 150 mg/dL [facility] HDL 60 40 - 80 mg/dL [facility] CALCULATED LDL 76 50 - 129 mg/dL [facility] VLDL 30 <31 mg/dL [facility] CARDIAC RISK RATIO 2.8 0.0 - 4.0 [facility] 10/01/2023 12:1 1 PM EST 10/01/2023 12:21 PM EST Isabel Cameron MD LAB BLOOD BKR ORDERABLES F inal Result Performing Organization Address [facility] Co de Phone Number [facility] [address] [place] [address] from Last 3 Months or Most Recently Relevant to Health Maintenance Insurance MEDICARE PART A & B CARE MEDICARE REPLACEMENT [place] [address] MEDICARE PART A & B Member Subscriber Plan / Payer (Ef fective 1999-Present) Name:Yu Morgan Member ID:[id number] Relation to Subscriber:Self Name:Yu Morgan Subscriber ID:[id number] Payer ID:[id number] Group ID:Not on file Type:Medicare Address: [employer] [address] [place] [id number] [place] [address] CARE MEDICARE REPLACEMENT MEDICARE PART A & B [facility] ONE [facility] MEDICARE REPLACEMENT [place] [id number] MEDICARE PART A & B [facility] ONE CARE MEDICARE REPLACEMENT MEDICARE PART A & B [facility] ONE CARE MEDICARE REPLACEMENT MEDICARE PART A & B Member Subscriber Plan / Payer (Ef fective 1999-Present) Name:Yu Morgan Member ID:[id number] Relation to Subscriber:Self Name:Yu Morgan Subscriber ID:[id number] Payer ID:[id number] Group ID:Not on file Type:Medicare Address: [facility] [employer] [facility] [address] [place] [phone] [place] [address] ONE CARE MEDICARE REPLACEMENT [place] [id number] MEDICARE PART A & B [facility] CARE MEDICARE REPLACEMENT [place] [address] MEDICARE PART A & B CARE MEDICARE REPLACEMENT [place] [address] CARE MEDICARE REPLACEMENT [place] [address] Advance Directives For more information, please contact: [phone] ([phone] - 5PM [facility], Friday-Friday) Documents on File Type Date Recorded Patient Spanish Professor Expl anation Healthcare Proxy 10/10/2023 4:15 PM [...] Status Communicated To: Inpatient Attending Care Teams Financial Services Internship Relationship Specialty Start Date End Date Jigar Patel PA [address] [place] [address] PCP - General 07/24/22 Edi Montoya MD [address] [place] [address] [place] [address] Pulmonary Disease 09/25/23 Additional Source Comments The information contained in this document represents components of the legal health record. It is not the complete legal health record.[facility]
--- OUTSIDE RECORDS SUMMARY | 2025-09-06 15:15 | XMS_ITS | Encounter Summary ---
Author Organization Formerly [facility] Address [address] [place] [address] Encounters * CPT with Medical instED at [employer] on 2025-08-26 { reasonForRequest : Pt recently discharged from the hospital due severe hernias + afall>notes she was discharged with her right arm, pain, swollen and red , patientReports : , denies :[ Higginbotham Flash, circumferential higginbotham , Higginbotham reported with black tissue to the area , Open skin area after a fall with uncontrolled bleedin g , Abscess/infection with streaking noted, presence of fever or without ], eun fComplaints : Extremity Pain , pmh : COPD/Asthma, Congestive Heart Failure, Cancer , allergies : Penicillins, Aspirin, Doxycycline, NSAIDS (Non-Steroidal Anti-Inflammatory Drug) , otherAllergies :null, painAssessment : & quot;, visitOutcome : , additionalComments : 65 y.o female complains of Extremity Pain\nDischarged from hospital today. Patient was admitted for fall and hernia. States she was given Heparin . Right upper extremity is currently swollen and red where IV was placed. She had 2 IVs placed in the right arm, one in the hand. Redness and swelling going up arm to elbow. Patient reports pimple like bumps on the extremity where IV was placed. Area was bleeding earlier but has stopped. Has some mild discomfort to arm. Denies fevers. Feeling very weak. Not put on any new medications. \nI provided information on the mobile health provider response time and advised thepatient and/or caregiver to monitor reported signs and symptoms. I discussed the warning signs of when to seek emergency care. } THALIA6 responds to the listed address for a 65 yof w/ a c/c of UE redness and pain. Upon arrival on scene, pt is standing at the open door to her apartment wearing a bathrobe and invites [facility] inside. She is generally well-appearing w/ p/w/d skin and NAD. She sits in the recliner in her living room for evaluation. She tells [facility] she was discharged this afternoon from the hospital where she spent two days in the ED as an admitted pt. She was admitted after being transported by EMS for a fall from which she could not get herself off the floor. She says they kept her due to her chronic abdominal hernia. She says they removed her IVs from both arms and were not gentle about it. When she arrived home, she says she noticed her R arm was swelling and she had a small amount of purulent drainage around the insertion site of the catheter. She was feeling generally fatigued and a bit nauseated after arriving home and got in the shower. She says the forearm was very painful in the shower, but she was able to clean site. She normally takes Eliquis for afib, but was placed on a heparin drip in the ED. Pt also endorses hypertension. Pt denies cp, sob, n/v/d, fevers/chills, or urinary symptoms. She is concerned w/ infection and sepsis and consents to evaluation and treatment today. [facility] captures pt consent signature. Vital signs are gathered and pt is assessed. Pt is hypertensive w/ a very low-grade fever and is not hypoxic. Head is atraumatic and normocephalic. Sclera are clearand extraocular movements are intact. Chest rises and falls w/ respirations and lung sounds are clear to auscultation. Pt has baseline back pain but no CVA tenderness is present. R forearm has an area approx 18cm in circumference of erythematous skin that is warm to touch. A quarter-size bruise lays just above the AC and medial. there is a small raised area below the AC where the IV was inserted that appears to have a purulent scab. CMS is intact and no numbness or tingling are present. [facility] acts [facility] and discusses the above. [facility] confirms pt allergies and orders [facility] to outline the area of redness on the forearm so pt can monitor the area. [facility] then orders 500mg cephalexin PO for pt and calls in 5-day course to pt's pharmacy. [facility] requests a recheck of pt's bp and instructs pt to apply warn compresses and to monitor the area and if the redness begins to grow outside the borders drawn w/ the marker or if she gets worse in any way, she needs to return to the ED for stronger abx. [facility] administers 500mg x1 tablet PO to pt and outlines the borders of the red area on the forearm. [facility] also instruct pt to apply warm compresses. BP is reassessed and remains high. Pt feels her elevated pressure and SAMSON are due to her fatigue and not feeling well. [facility] is informed and [facility] orders 1G Tylenol PO for pt. [facility] administers 500mg x2 tablets Tylenol PO to pt and instructs her to return to the ED if she sees no improvement in the forearm by Friday nigh/Friday morning at the latest. Pt thanks [facility] for coming. [facility] is clear. Report completed by ATIF Erickson [id number]. IV_(FLUIDS_AND/OR_MEDICATION), MEDICATION_IM, ORAL_MEDICATION, WOUND_CARE, ORTHOSTATIC_VITAL_SIGNS Written by Medical instLILI on 2025-08-26
--- OUTSIDE RECORDS SUMMARY | 2025-09-06 15:15 | XMS_ITS | Continuity of Care Document ---
Author Name instED, Medical Address [address] [place] [id number] Organization Unknown Address [address] [place] [id number] Medications No known medications Problems No known problems
--- OUTSIDE RECORDS SUMMARY | 2025-09-06 15:15 | XMS_ITS | Clinical Summary ---
Author Organization [facility] [address] [facility] Address [address] [place] [address] Phone Care Team Providers Care Whipped Topping Mixer Name Role Phone Jigar Patel Primary Care [...] MOUTH TWICE DAILY 56 capsule 3 Active Additional Information Patient not taking.Reported [...] FOUR TIMES DAILY NEEDED 30 capsule Active lidocaine (XYLOCAINE) 5 % ointmentIndications :Diarrhea following gastrointestinal surgery APPLY A SMALL AMOUNT TO AFFECTED AREA ON RECTUM 3 TIMES DAILY NEEDED 30 g 1 Active cholestyramine (QUESTRAN) 4 gram powder Take 1 packet (4 g total) by mouth 3 (three) times a day with meals. Dissolve in 8 oz of liquid and drink before a meal 90 packet 11 2025 Active Additional Information Patient not taking.Reported on 07/04/2025 potassium chloride (KLOR-CON M10) 10 mEq CR tablet Take 1 tablet (10 mEq total) by mouth 1 (one) time each day. Tablet may be swallowed whole (do not crush/chew/alvarenga ck on) OR broken in half and each half swallowed separately OR dissolved (whole tablet) in ~4 ounces of water (allow ~2 minutes to dissolve, stir well and administer immediately). Active octreotide (SandoSTATIN LAR Depot) 30 mg suspension,extended rel reconIndications:Di arrhea due to malabsorption Inject 30 mg into the shoulder, thigh, or buttocks every 28 (twenty-eight ) days. 1 each 025 2025 Active pantoprazole (PROTONIX) 40 mg EC tabletIndications:G astroesophageal reflux disease, unspecified whether esophagitis present TAKE 1 TABLET BY MOUTH ONCE A DAY 30 tablet 10/27/2 025 Active pancrelipase, Nmc-Dpgm-Vwws, (CREON) 24,000-76,000 -120,000 unit capsuleIndications: Pancreatic insufficiency Take 1 capsule (24,000 Units total) by mouth 4 (four) times a day. 360 each 3 025 Active pantoprazole (PROTONIX) 40 mg EC tablet TAKE 1 TABLET BY MOUTH ONCE A DAY 30 tablet 1 025 2024 Discontinued pancrelipase, Ipc-Kfbb-Rtpa, (CREON) 24,000-76,000 -120,000 unit capsule Take 1 capsule (24,000 Units total) by mouth 4 (four) times a day. 2024 Discontinued(R eorder) pantoprazole (PROTONIX) 40 mg EC tabletIndications:G astroesophageal reflux disease, unspecified whether esophagitis present TAKE 1 TABLET BY MOUTH ONCE A DAY 30 tablet 025 2024 Discontinued Hospital, Clinic, or Other Facility Administered Medication Ordered Dose Route Frequency Start Date End Date Status loperamide (IMODIUM) capsule 2 mgIndications:Functio nal diarrhea 2 mg oral 4 times daily PRN 10/26/2024 Activ e Active Problems Problem Noted Date Diagnosed Date Class 1 obesity 07/01/2025 Bipolar disorder ([facility] V24, [facility] V28) 05/27 Severe obesity ([facility] V24, [facility] V28) 2024 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 Status post cholecystectomy 06/07/2025 Diarrhea due to malabsorption 06/07/2025 Functional diarrhea 10/26/2024 Ventral hernia 10/22/2024 Intraabdominal fluid collection 10/21/2023 SBO (small bowel obstruction) ([facility] V24, [facility] V28) 10/10/2022 Abdominal pain 08/22/2022 Incisional hernia, without obstruction or gangre ne 05/17/2022 Smoking addiction 10/29/2021 Anxiety disorder 10/29/2021 Incontinence 10/29/2021 Hyponatremia 10/29/2021 Gastric reflux 10/29/2021 Gastroparesis 10/29/2021 Hyperglycemia 10/29/2021 Irritable bowel syndrome 10/29/2021 Parasomnia 10/29/2021 Peristomal dermatitis 10/29/2021 Psychogenic polydipsia 10/29/2021 Tardive dyskinesia 10/29/2021 Asthma 10/29/2021 Atypical migraine 10/29/2021 Ileostomy dysfunction ([facility] V24, [facility] V28) 10/13/2021 Hypothyroidism 03/05/2021 Hypertension 03/05/2021 Chronic narcotic dependence ([facility] V24, [facility] V28) 03/05/2021 Schizoaffective disorder ([facility] V24, [facility] V 28) 03/05/2021 Chronic constipation 02/22/2021 COPD (chronic obstructive pu lmonary disease) ([facility] V24, [facility] V28) 01/11/2019 KALE (obstructive sleep apnea) 01/11/2019 [...] Date Type Department Care Team Description 07/04/2025 11:45 AM EDT Clinical Support Gastroenterology - [address] [place] [phone] Functional diarrhea (Primary Dx) 07/04/2025 Treatment Gastroenterology - [address] [place] [phone] Salud Forman PA 06/09/2025 Telephone Gastroenterology - [address] [phone] Edu Pretty MD 06/07/2025 10:40 AM EDT Office Visit Gastroenterology - [address] [place] [phone] Edu Pretty MD Diarrhea due to malabsorption (Primary Dx) from Last 3 Months Surgical History Surgery Date Site/Laterality Comments HERNIA REPAIR PROCEDURE: [place] REPAIR FIRST ABDOMINAL WALL HERNIA OTHER SURGICAL [...] Date Smoking Tobacco: Some Days Cigarettes 0.3 47.4 Started: 04/13/1978 Smokeless Tobacco: Never Tobacco Cessation:Ready [...] 07/04/2025 11:41 AM EDT Plan of Treatment Health Maintenance Due Date Last Done Comments Breast Cancer Screening 1962 Hepatitis A Vaccines (1 of 2 - Risk 2-dose series) 1981 Cervical Cancer Screening: Pap Smear 1983 DTaP,Tdap,and Td Vaccines (2 - Td or Tdap) 10/29/2009 10/29/1999 RSV Immunization Adult Patients (1 - Risk 50-74 years 1-dose series) 2012 Zoster Vaccines (1 of 2) 2012 Pneumococcal Vaccine: 50+ Years (2 of 2 - PCV) 07/12/2012 07/12/2011 HIV Screening 09/29/2022 Medicare Annual Wellness Visit [...] Procedure Name Priority Date/Time Associated Diagnosis Comments HEPATITIS C ANTIBODY Routine 02/14/2025 9:42 AM EDT Abnormal blood chemistry COMPREHENSIVE METABOLIC PANEL Routine 01/19/2025 10:59 AM EDT Diarrhea, unspecified type COLONOSCOPY Routine 11/08/2024 8:55 AM EST History of colon polyps LIPID PANEL Routine 10/01/2023 from Last 3 Months or Most Recently Relevant to Health Maintenance Results * Hepatitis C antibody (02/14/2025 9:42 AM EDT) Pathologist [facility] Hepatitis C Antibody Negative Negative LAB CHEMISTRY METHOD 02/14/2025 2:19 PM EDT [facility] Blood Venous blood specimen / Unknown Venipuncture / Unknown 02/14/2025 9:42 AM EDT 02/14/2025 10:11 AM EDT Garrett Shabazz MD LAB BLOOD ORDERABLES Final Resu lt [facility] [address] [place] [address], * (ABNORMAL) Comprehensive metabolic panel (01/19/2025 10:59 AM EDT) Sodium 128(L) 133 - 145 mmol/L LAB CHEMISTRY METHOD 01/19/2025 2:51 PM EDT [facility] Potassium 3.4(L) 3.5 - 5.5 mmol/L LAB CHEMISTRY METHOD 01/19/2025 2:51 PM EDT [facility] Chloride 91(L) 96 - 110 mmol/L LAB CHEMISTRY METHOD 01/19/2025 2:51 PM [facility] CO2 33(H) 21 - 32 mmol/L LAB CHEMISTRY METHOD 01/19/2025 2:51 PM [facility] Anion Gap 4 3 - 11 LAB CHEMISTRY METHOD 01/19/2025 2:51 PM [facility] Glucose 78 70 - 100 [...] [facility] Comment:Calculation based on the Chronic [...] LAB CHEMISTRY METHOD 01/19/2025 2:51 PM EDT [facility] Total Bilirubin 0.5 0.0 - 1.4 mg/dL LAB CHEMISTRY METHOD 01/19/2025 2:51 PM EDT [facility] Blood Venous blood specimen / Unknown Venipuncture / Unknown 01/19/2025 10:59 AM EDT 01/19/2025 11:33 AM EDT us Garrett Shabazz MD LAB BLOOD ORDERABLES Final Resu lt [facility] [address] [place] [address], * COLONOSCOPY Anesthesia - MAC; [facility] ENDOSCOPY (11/08/2024 8:55 AM EST) [...] pathology results. Narrative 11/08/2024 8:59 AM EST [facility] Patient Name: Kain Dumont Procedure [...] for histology. Procedure Code(s): --- Professional --- 26201, Colonoscopy, flexible; with biopsy, single or multiple CPT copyright 2020 [employer]. All rights reserved. The codes documented in this report are preliminary and upon customs investigator review may be revised to meet current compliance requirements. MD Garrett Do MD 11/08/2024 8:59:29 AM This report has been signed electronically.Garrett Shabazz MD Number of Addenda: 0 Note Initiated On: 11/08/2024 8:40 AM Scope In: Scope Out: Endoscopy Department at [facility] - [address] [place] [phone] Procedure Note Garrett Shabazz MD - 11/08/2024 [facility] Patient Name: Kain Dumont Procedure [...] Findings: There was evidence of a prior huu-je-vjoldhp-colonic anastomosis in the sigmoid colon. This was patentand was characterized by healthy appearing mucosa. The anastomosis was traversed. The exam was otherwise without abnormality ondirect and retroflexion views. Clara-anal excoriationsnoted. Biopsies were taken with a cold forceps in therectum, in the sigmoid colon and in the distal ileum for histology. Procedure Code(s): --- Professional --- 54314, Colonoscopy, flexible; with biopsy, singleor multiple CPT copyright 2020 [employer]. All rights reserved. The codes documented in this report are preliminary and upon customs investigator reviewmay be revised to meet current compliance requirements. MD Garrett Do MD 11/08/2024 8:59:29 AM This report has been signed electronically.Garrett Shabazz MD Number of Addenda: 0 Note Initiated On: 11/08/2024 8:40 AM Scope In: Scope Out: Endoscopy Department at [facility] - [address] [place] [phone] IMPRESSION: - Patent end-to-end ileo-colonic anastomosis, characterized [...] ID:[id number] Group ID:ICO Type:Not on file Address: [address] [id number] Advance Directives Documents on File Type Date Recorded Patient Acoustical Tile Patternmaker Expl anation Health Care Decision (hx) 11/03/2022 [...] currently active code status orders. Care Teams Whipped Topping Mixer Relationship Specialty Start Date End Date Jigar Patel PA [address] [place] [phone] PCP - General 02/26/23
--- OUTSIDE RECORDS SUMMARY | 2025-09-06 15:15 | XMS_ITS | Encounter Summary ---
Author Organization [facility] Address [address] [place] [address] Phone Care Team Providers Care Tester Rocket Engine Name Role Phone Jigar Patel Primary Care Provider + Edi Montoya MD Unavailable Encounter Details Date Type Department Care Team (Late st Contact Info) Description 04/17/2023 Procedure Pass [facility] Periop [address] [place] [address] Social History Tobacco Use Types Packs/Day Years [...] documented as of this encounter Care Teams Tester Rocket Engine Relationship Specialty Start Date End Date Jigar Patel PA [address] [place] [address] PCP - General 07/24/22 Edi Montoya MD [address] [place] [address] [place] [address] Pulmonary Disease 09/25/23 documented as of this encounter Additional Source Comments The information contained in this document represents components of the legal health record. It is not the complete legal health record.[facility]
--- OUTSIDE RECORDS SUMMARY | 2025-09-06 15:15 | XMS_ITS | Encounter Summary ---
Author Organization [facility] Address [address] [place] [address] Phone Care Team Providers Care Conductor/Engineer Name Role Phone Jigar Patel Primary Care Provider + Edi Montoya MD Unavailable [phone] Encounter Details Date Type Department Care Team (Late st Contact Info) Description 08/21/2022 Procedure Pass [facility] [address] [place] [address] Social History Tobacco Use Types Packs/Day Years [...] 12:15 PM EDT Natalie Calloway RN * [place] Suicide Severity Rating Scale (Screener/Recent Self-Report) Question [...] documented as of this encounter Care Teams Conductor/Engineer Relationship Specialty Start Date End Date Jigar Patel PA [address] [place] [address] PCP - General 07/24/22 Edi Montoya MD [address] [place] [address] [place] [address] Pulmonary Disease 09/25/23 documented as of this encounter Additional Source Comments The information contained in this document represents components of the legal health record. It is not the complete legal health record.[facility]
--- OUTSIDE RECORDS SUMMARY | 2025-09-06 15:15 | XMS_ITS | Encounter Summary ---
Author Organization [facility] Address [address] [place] [address] Phone Care Team Providers Care Manager Relocation Name Role Phone Jigar Patel Primary Care Provider + Edi Montoya MD Unavailable Encounter Details Date Type Department Care Team (Late st Contact Info) Description 10/02/2023 Procedure Pass [facility] Periop [address] [place] [address] Social History Tobacco Use Types Packs/Day Years [...] 10/03/2023 3:00 AM Luisa Don RN * [place] Suicide Severity Rating Scale (Screener/Recent Self-Report) Question [...] documented as of this encounter Care Teams Manager Relocation Relationship Specialty Start Date End Date Jigar Patel PA [address] [place] [address] PCP - General 07/24/22 Edi Montoya MD [address] [place] [address] [place] [address] Pulmonary Disease 09/25/23 documented as of this encounter Additional Source Comments The information contained in this document represents components of the legal health record. It is not the complete legal health record.[facility]
--- OUTSIDE RECORDS SUMMARY | 2025-09-06 15:15 | XMS_ITS | Encounter Summary ---
Author Organization [facility] Address [address] [place] [address] Phone Care Team Providers Care Traffic Expert Name Role Phone Jigar Patel Primary Care Provider + Edi Montoya MD Unavailable Encounter Details Date Type Department Care Team (Late st Contact Info) Description 11/19/2023 Procedure Pass [facility] [address] [place] [address] Social History Tobacco Use Types Packs/Day Years [...] on filedocumented in this encounter Care Teams Traffic Expert Relationship Specialty Start Date End Date Jigar Patel PA [address] [place] [address] PCP - General 07/24/22 Edi Montoya MD [address] [place] [address] [place] [address] Pulmonary Disease 09/25/23 documented as of this encounter Additional Source Comments The information contained in this document represents components of the legal health record. It is not the complete legal health record.[facility]
--- OUTSIDE RECORDS SUMMARY | 2025-09-06 15:15 | XMS_ITS | Encounter Summary ---
Author Organization [facility] Address [address] [place] [address] Phone Care Team Providers Care Supervisor Spring Up Name Role Phone Jigar Patel Primary Care Provider + Edi Montoya MD Unavailable Encounter Details Date Type Department Care Team (Late st Contact Info) Description 09/25/2023 Procedure Pass [facility] Echocardiography [address] [place] [address] Social History Tobacco Use Types Packs/Day Years [...] documented as of this encounter Care Teams Supervisor Spring Up Relationship Specialty Start Date End Date Jigar Patel PA [address] [place] [address] PCP - General 07/24/22 Edi Montoya MD [address] [place] [address] [place] [address] Pulmonary Disease 09/25/23 documented as of this encounter Additional Source Comments The information contained in this document represents components of the legal health record. It is not the complete legal health record.[facility]
--- OUTSIDE RECORDS SUMMARY | 2025-09-06 15:15 | XMS_ITS | Encounter Summary ---
Author Organization [facility] Address [address] [place] [address] Phone Care Team Providers Care Costume Specialist Name Role Phone Jigar Patel Primary Care Provider + Edi Montoya MD Unavailable Encounter Details Date Type Department Care Team (Late st Contact Info) Description 10/02/2022 Procedure Pass [facility] Periop [address] [place] [address] Social History Tobacco Use Types Packs/Day Years [...] as of this encounter Care Teams Costume Specialist Relationship Specialty Start Date End Date Jigar Patel PA [address] [place] [address] PCP - General 07/24/22 Edi Montoya MD [address] [place] [address] [place] [address] Pulmonary Disease 09/25/23 documented as of this encounter Additional Source Comments The information contained in this document represents components of the legal health record. It is not the complete legal health record.[facility]
--- OUTSIDE RECORDS SUMMARY | 2025-09-06 15:15 | XMS_ITS | Encounter Summary ---
Author Organization [facility] Address [address] [place] [address] Phone Care Team Providers Care Cementing Machine Operator Name Role Phone Jigar Patel Primary Care Provider + Edi Montoya MD Unavailable Encounter Details Date Type Department Care Team (Late st Contact Info) Description 10/05/2023 Procedure Pass [facility] [address] [place] [address] Social History Tobacco Use Types Packs/Day Years [...] documented as of this encounter Care Teams Cementing Machine Operator Relationship Specialty Start Date End Date Jigra Patel PA [address] [place] [address] PCP - General 07/24/22 Edi Montoya MD [address] [place] [address] [place] [address] Pulmonary Disease 09/25/23 documented as of this encounter Additional Source Comments The information contained in this document represents components of the legal health record. It is not the complete legal health record.[facility]
--- OUTSIDE RECORDS SUMMARY | 2025-09-06 15:15 | XMS_ITS | Encounter Summary ---
Author Organization [facility] Address [address] [place] [address] Phone Care Team Providers Care Needle Valve Operator Name Role Phone Jigar Patel Primary Care Provider + Edi Montoya MD Unavailable [phone] Encounter Details Date Type Department Care Team (Late st Contact Info) Description 10/10/2022 Procedure Pass [facility] [address] [place] [address] Social History Tobacco Use Types Packs/Day Years [...] 5:20 PM EST Callie Meza, RN * [place] Suicide Severity Rating Scale (Screener/Recent Self-Report) Question [...] documented as of this encounter Care Teams Needle Valve Operator Relationship Specialty Start Date End Date Jigar Patle PA [address] [place] [address] PCP - General 07/24/22 Edi Montoya MD [address] [place] [address] [place] [address] Pulmonary Disease 09/25/23 documented as of this encounter Additional Source Comments The information contained in this document represents components of the legal health record. It is not the complete legal health record.[facility]
== END 2025-09-06 14:19 | disposition home or self-care (01) ==
LOC: HO.HOP 13:34
PROVIDERS: PCP Physician Assistant; Visit Provider Clinical Nurse Specialist Psychiatric/Mental Health
DX: F43.12 Post-traumatic stress disorder, chronic (principal); F41.1 Generalized anxiety disorder; F41.0 Panic disorder [episodic paroxysmal anxiety]; F60.3 Borderline personality disorder; F33.9 Major depressive disorder, recurrent, unspecified
CPT/HCPCS: 99214

== ENCOUNTER → 2025-09-06 13:34 | Outpatient (BNVA) | payer OTHER, SELFPAY | PROVIDERS: PCP Physician Assistant; Visit Provider Clinical Nurse Specialist Psychiatric/Mental Health | DX: F43.12 Post-traumatic stress disorder, chronic (principal); F41.1 Generalized anxiety disorder; F41.0 Panic disorder [episodic paroxysmal anxiety]; F60.3 Borderline personality disorder; F33.1 Major depressive disorder, recurrent, moderate; Z79.899 Other long term (current) drug therapy | CPT/HCPCS: 99212 ==

== ENCOUNTER 2025-09-27 09:38 | Outpatient (AMB) | payer OTHER, SELFPAY ==
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
--- OUTSIDE RECORDS SUMMARY | 2025-09-27 10:32 | XMS_ITS | Encounter Summary ---
Author Organization [facility] Address [address] [place] [address] Phone Care Team Providers Care Tourist Camp Attendant Name Role Phone Jigar Patel Primary Care Provider + Edi Montoya MD Unavailable Encounter Details Date Type Department Care Team (Late st Contact Info) Description 01/20/2023 Procedure Pass [facility] Periop [address] [place] [address] Social History Tobacco Use Types Packs/Day Years [...] documented as of this encounter Care Teams Tourist Camp Attendant Relationship Specialty Start Date End Date Jigar Patel PA [address] [place] [address] PCP - General 07/24/22 Edi Montoya MD [address] [place] [address] [place] [address] Pulmonary Disease 09/25/23 documented as of this encounter Additional Source Comments The information contained in this document represents components of the legal health record. It is not the complete legal health record.[facility]
--- OUTSIDE RECORDS SUMMARY | 2025-09-27 10:32 | XMS_ITS | Encounter Summary ---
Author Organization [facility] Address [address] [place] [address] Phone Care Team Providers Care Superintendent Circus Name Role Phone Jigar Patel Primary Care Provider + Edi Montoya MD Unavailable [phone] Encounter Details Date Type Department Care Team (Late st Contact Info) Description 11/25/2023 Procedure Pass [facility], [place] [address] [place] [address] Social History Tobacco Use Types Packs/Day Years [...] on filedocumented in this encounter Care Teams Superintendent Circus Relationship Specialty Start Date End Date Jigar Patel PA [address] [place] [id number] PCP - General 07/24/22 Edi Montoya MD [address] [place] [address] [place] [address] Pulmonary Disease 09/25/23 documented as of this encounter Additional Source Comments The information contained in this document represents components of the legal health record. It is not the complete legal health record.[facility]
--- OUTSIDE RECORDS SUMMARY | 2025-09-27 10:32 | XMS_ITS | Encounter Summary ---
Author Organization [facility] Address [address] [place] [address] Phone Care Team Providers Care Janitor Name Role Phone Jigar Patel Primary Care Provider + Edi Montoya MD Unavailable Encounter Details Date Type Department Care Team (Late st Contact Info) Description 10/22/[address] [facility] Cross Sectional Interventional Radiology [address] [place] [address] Social History Tobacco Use Types Packs/Day Years [...] documented as of this encounter Care Teams Janitor Relationship Specialty Start Date End Date Jigar Patel PA [address] [place] [address] PCP - General 07/24/22 Edi Montoya MD [address] [place] [address] [place] [address] Pulmonary Disease 09/25/23 documented as of this encounter Additional Source Comments The information contained in this document represents components of the legal health record. It is not the complete legal health record.[facility]
--- OUTSIDE RECORDS SUMMARY | 2025-09-27 10:32 | XMS_ITS | Encounter Summary ---
Author Organization [facility] Address [address] [place] [address] Phone Care Team Providers Care Warehouse Guard Name Role Phone Jigar Patel Primary Care Provider + Edi Montoya MD Unavailable Encounter Details Date Type Department Care Team (Late st Contact Info) Description 04/17/2023 Procedure Pass [facility] Periop [address] [place] [address] Social History Tobacco Use Types Packs/Day Years [...] documented as of this encounter Care Teams Warehouse Guard Relationship Specialty Start Date End Date Jigar Patel PA [address] [place] [address] PCP - General 07/24/22 Edi Montoya MD [address] [place] [address] [place] [address] Pulmonary Disease 09/25/23 documented as of this encounter Additional Source Comments The information contained in this document represents components of the legal health record. It is not the complete legal health record.[facility]
--- OUTSIDE RECORDS SUMMARY | 2025-09-27 10:32 | XMS_ITS | Encounter Summary ---
Author Organization [facility] Address [address] [place] [address] Phone Care Team Providers Care Divinity Teacher Name Role Phone Jigar Patel Primary Care Provider + Edi Montoya MD Unavailable Encounter Details Date Type Department Care Team (Late st Contact Info) Description 04/17/2023 Procedure Pass [facility] Periop [address] [place] [address] Social History Tobacco Use Types Packs/Day Years [...] documented as of this encounter Care Teams Divinity Teacher Relationship Specialty Start Date End Date Jigar Patel PA [address] [place] [address] PCP - General 07/24/22 Edi Montoya MD [address] [place] [address] [place] [address] Pulmonary Disease 09/25/23 documented as of this encounter Additional Source Comments The information contained in this document represents components of the legal health record. It is not the complete legal health record.[facility]
--- OUTSIDE RECORDS SUMMARY | 2025-09-27 10:32 | XMS_ITS | Encounter Summary ---
Author Organization [facility] Address [address] [place] [address] Phone Care Team Providers Care Exhaust Emissions Inspector Name Role Phone Jigar Patel Primary Care Provider + Edi Montoya MD Unavailable Encounter Details Date Type Department Care Team (Late st Contact Info) Description 01/20/2023 Procedure Pass [facility] Periop [address] [place] [address] Social History Tobacco Use Types Packs/Day Years [...] documented as of this encounter Care Teams Exhaust Emissions Inspector Relationship Specialty Start Date End Date Jigar Patel PA [address] [place] [address] PCP - General 07/24/22 Edi Montoya MD [address] [place] [address] [place] [address] Pulmonary Disease 09/25/23 documented as of this encounter Additional Source Comments The information contained in this document represents components of the legal health record. It is not the complete legal health record.[facility]
--- OUTSIDE RECORDS SUMMARY | 2025-09-27 10:33 | XMS_ITS | Encounter Summary ---
Author Organization [facility] Address [address] [place] [address] Phone Care Team Providers Care Individual Pension Adviser Name Role Phone Jigar Patel Primary Care Provider + Edi Montoya MD Unavailable Encounter Details Date Type Department Care Team (Late st Contact Info) Description 09/25/2023 Procedure Pass [facility] Echocardiography [address] [place] [address] Social History Tobacco Use Types Packs/Day Years [...] documented as of this encounter Care Teams Individual Pension Adviser Relationship Specialty Start Date End Date Jigar Patel PA [address] [place] [address] PCP - General 07/24/22 Edi Montoya MD [address] [place] [address] [place] [address] Pulmonary Disease 09/25/23 documented as of this encounter Additional Source Comments The information contained in this document represents components of the legal health record. It is not the complete legal health record.[facility]
--- OUTSIDE RECORDS SUMMARY | 2025-09-27 10:33 | XMS_ITS | Encounter Summary ---
Author Organization [facility] Address [address] [place] [address] Phone Care Team Providers Care Design Tech Name Role Phone Jigar Patel Primary Care Provider + Edi Montoya MD Unavailable Encounter Details Date Type Department Care Team (Late st Contact Info) Description 08/21/2022 Procedure Pass [facility] and [facility] Radiology [address] [place] [address] Social History Tobacco Use Types Packs/Day Years [...] 12:15 PM EDT Natalie Calloway RN * [place] Suicide Severity Rating Scale (Screener/Recent Self-Report) Question [...] documented as of this encounter Care Teams Design Tech Relationship Specialty Start Date End Date Jigar Patel PA [address] [place] [address] PCP - General 07/24/22 Edi Montoya MD [address] [place] [address] [place] [address] Pulmonary Disease 09/25/23 documented as of this encounter Additional Source Comments The information contained in this document represents components of the legal health record. It is not the complete legal health record.[facility]
--- OUTSIDE RECORDS SUMMARY | 2025-09-27 10:33 | XMS_ITS | Clinical Summary ---
Author Organization [facility] Address [address] [facility] [address] [place] [address] Phone Care Team Providers Care Flight Operations Inspector Name Role Phone Jigar Patel Primary Care Provider + Edi Montoya MD Unavailable [phone] Allergies Active Allergy Reactions Criticality Noted Date [...] this topic Medical Devices Implanted Type Area Manager Location Device Identifier Shelf Expiration Date Model / Serial / Lot Mesh Surgical [id number] [employer] [address] Pocketed Bioresorbable Open Positioning System Oval - [id number] Implanted:Qty: 1 on 10/02/2023 by Chintan Figueroa MD at [facility] N/A: Abdomen [employer] 12/24/2024 [id number] / [id number] / [id number] Procedures Procedure Name Priority Date/Time Associated Diagnosis Comments POTASSIUM Routine 10/25/2023 5:23 AM EST BASIC METABOLIC PANEL (BMP) Routine 10/24/2023 7:18 AM EST LIPID PANEL Routine 10/01/2023 12:11 PM EST Preoperative cardiovascular examination from Last 3 Months or Most Recently Relevant to Health Maintenance Results * (ABNORMAL) Potassium (10/25/2023 5:23 AM EST) POTASSIUM 3.3(L) 3.4 - 5.1 mmol/L [facility] Blood 10/25/2023 5:23 AM EST 10/25/2023 5:39 AM EST us Bolivar Meyer MD LAB BLOOD BKR ORDERA BLES Final Result [facility] [address] [place] [address] * (ABNORMAL) Basic metabolic panel (10/24/2023 7:18 AM EST) SODIUM 134(L) 136 - 145 mmol/L [facility] POTASSIUM 3.0(L) 3.4 - 5.1 mmol/L [facility] CHLORIDE 93(L) 98 - 107 mmol/L [facility] CO2 30 22 - 31 mmol/L [facility] BUN <3(L) 6 - 23 mg/dL [facility] CREATININE 0.30(L) 0.50 - 1.20 mg/dL [facility] GLUCOSE 99 70 - 100 mg/dL [facility] CALCIUM 8.1(L) 8.8 - 10.7 mg/dL [facility] EGFR >120 >59 mL/min/1. 73m2 [facility] Comment:Estimated glomerular filtration rate calculated using the CKD-EPI refit equation. ANION GAP 11 7 - 17 mmol/L [facility] Blood 10/24/2023 7:18 AM EST 10/24/2023 8:13 AM EST Bolivar Meyer MD LAB BLOOD BKR ORDERA BLES Final Result Performing Organization Address [facility] Co de Phone Number [facility] [address] [place] [address] * (ABNORMAL) Lipid panel (10/01/2023 12:11 PM EST) CHOLESTEROL 166 <200 mg/dL [facility] TRIGLYCERIDES 152(H) 35 - 150 mg/dL [facility] HDL 60 40 - 80 mg/dL [facility] CALCULATED LDL 76 50 - 129 mg/dL [facility] VLDL 30 <31 mg/dL [facility] CARDIAC RISK RATIO 2.8 0.0 - 4.0 [facility] 10/01/2023 12:1 1 PM EST 10/01/2023 12:21 PM EST Isabel Cameron MD LAB BLOOD BKR ORDERABLES F inal Result Performing Organization Address [facility] Co de Phone Number [facility] [address] [place] [address] from Last 3 Months or Most Recently Relevant to Health Maintenance Insurance MEDICARE PART A & B [facility] MEDICARE REPLACEMENT [place] [facility] MEDICARE PART A & B [facility] CARE MEDICARE REPLACEMENT MEDICARE PART A & B CARE MEDICARE REPLACEMENT MEDICARE PART A & B Member Subscriber Plan / Payer (Ef fective 1999-) Name:Yu Morgan Member ID:[id number] Relation to Subscriber:Self Name:Yu Morgan Subscriber ID:[id number] Payer ID:[id number] Group ID:Not on file Type:Medicare Address: [employer] [address] [place] [address] [place] [address] CARE MEDICARE REPLACEMENT MEDICARE PART A & B [facility] CARE MEDICARE REPLACEMENT MEDICARE PART A & [place] [address] [address] [place] [address] CARE MEDICARE REPLACEMENT MEDICARE PART A & B Member Subscriber Plan / Payer (Ef fective 1999-Present) Name:Yu Morgan Member ID:[id number] Relation to Subscriber:Self Name:Yu Morgan Subscriber ID:[id number] Payer ID:[id number] Group ID:Not on file Type:Medicare Address: [employer] [facility] [address] [place] [address] [place] [address] CARE MEDICARE REPLACEMENT MEDICARE PART A & B CARE MEDICARE REPLACEMENT [place] [address] MEDICARE PART A & B CARE MEDICARE REPLACEMENT Advance Directives For more information, please contact: [phone] (9AM - 5PM [facility], Friday-Friday) Documents on File Type Date Recorded Patient Molder Floor Expl anation Healthcare Proxy 10/10/2023 4:15 PM [...] Status Communicated To: Inpatient Attending Care Teams Flight Operations Inspector Relationship Specialty Start Date End Date Jigar Patel PA [address] [place] [address] PCP - General 07/24/22 Edi Montoya MD [address] [place] [address] [place] [address] Pulmonary Disease 09/25/23 Additional Source Comments The information contained in this document represents components of the legal health record. It is not the complete legal health record.[facility]
--- OUTSIDE RECORDS SUMMARY | 2025-09-27 10:33 | XMS_ITS | Encounter Summary ---
Author Organization [facility] Address [address] [place] [address] Phone Care Team Providers Care Clerk Carrier Name Role Phone Jigar Patel Primary Care Provider + Edi Montoya MD Unavailable [phone] Encounter Details Date Type Department Care Team (Late st Contact Info) Description 10/10/2022 Procedure Pass [facility] [address] [place] [address] Social History Tobacco Use Types Packs/Day Years [...] 5:20 PM EST Callie Meza, RN * [place] Suicide Severity Rating Scale (Screener/Recent Self-Report) Question [...] documented as of this encounter Care Teams Clerk Carrier Relationship Specialty Start Date End Date Jigar Patel PA [address] [place] [address] PCP - General 07/24/22 Edi Montoya MD [address] [place] [address] [place] [address] Pulmonary Disease 09/25/23 documented as of this encounter Additional Source Comments The information contained in this document represents components of the legal health record. It is not the complete legal health record.[facility]
--- OUTSIDE RECORDS SUMMARY | 2025-09-27 10:33 | XMS_ITS | Clinical Summary ---
Author Organization [facility] [address] [facility] Address [address] [place] [address] Phone Care Team Providers Care Client Development Manager Name Role Phone Jigar Patel Primary [...] 11/09/19 25 Active lidocaine (XYLOCAINE) 5 % ointmentIndications :Diarrhea [...] Tablet may be swallowed whole (do not crush/chew/suc k on) OR broken in half and each half swallowed separately OR dissolved (whole tablet) in ~4 ounces of water (allow ~2 minutes to dissolve, stir well and administer immediately). Active octreotide (SandoSTATIN LAR [place]) 30 mg suspension,extended rel reconIndications:Di arrhea due to malabsorption Inject 30 mg into the shoulder, thigh, or buttocks every 28 (twenty-eight) days. 1 each 06/09/20 25 026 Active pantoprazole (PROTONIX) 40 mg EC tabletIndications:G astroesophageal reflux disease, unspecified whether esophagitis present TAKE 1 TABLET BY MOUTH ONCE A DAY 30 tablet 10/27/20 25 Active pancrelipase, Rsz-Jtxd-Hhbi, (CREON) 24,000-76,000 -120,000 unit capsuleIndications: Pancreatic insufficiency Take 1 capsule (24,000 Units total) by mouth 4 (four) times a day. 360 each 3 09/05/20 25 Active Creon 36,000-114,000- 180,000 unit capsule,delayed release(DR/EC)Indic ations:Pancreatic insufficiency TAKE 2 CAPSULES BY MOUTH 4 (FOUR) TIMES A DAY. 600 capsule 2 09/07/20 25 Active pancrelipase, Rgz-Fuqz-Bofb, (CREON) 24,000-76,000 -120,000 unit capsule Take 1 capsule (24,000 Units total) by mouth 4 (four) times a day. 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 Status post cholecystectomy 06/07/2025 Diarrhea due to malabsorption 06/07/2025 Functional diarrhea 10/26/2024 Ventral hernia 10/22/2024 Intraabdominal fluid collection 10/21/2023 SBO (small bowel obstruction) ([facility] V24, [facility] V28) 10/10/2022 Abdominal pain 08/22/2022 Incisional hernia, without obstruction or gangre ne 05/17/2022 Smoking addiction 10/29/2021 Anxiety disorder 10/29/2021 Incontinence 10/29/2021 Hyponatremia 10/29/2021 Gastric reflux 10/29/2021 Gastroparesis 10/29/2021 Hyperglycemia 10/29/2021 Irritable bowel syndrome 10/29/2021 Parasomnia 10/29/2021 Peristomal dermatitis 10/29/2021 Psychogenic polydipsia 10/29/2021 Tardive dyskinesia 10/29/2021 Asthma 10/29/2021 Atypical migraine 10/29/2021 Ileostomy dysfunction ([facility] V24, [facility] V28) 10/13/2021 Hypothyroidism 03/05/2021 Hypertension 03/05/2021 Chronic narcotic dependence ([facility] V24, [facility] V28) 03/05/2021 Schizoaffective disorder ([facility] V24, [facility] V 28) 03/05/2021 Chronic constipation 02/22/2021 COPD (chronic obstructive pu lmonary disease) ([facility] V24, [facility] V28) 01/11/2019 KALE (obstructive sleep apnea) 01/11/2019 [...] AM EDT Clinical Support Gastroenterology - [address] [phone] Functional diarrhea (Primary Dx) 07/04/2025 Treatment Gastroenterology - [address] [phone] Salud Forman PA from Last 3 Months Surgical History Surgery Date Site/Laterality Comments HERNIA REPAIR PROCEDURE: [place] REPAIR FIRST ABDOMINAL WALL HERNIA OTHER SURGICAL [...] Date Smoking Tobacco: Some Days Cigarettes 0.3 47.5 Started: 04/13/1978 Smokeless Tobacco: Never Tobacco Cessation:Ready [...] C antibody (02/14/2025 9:42 AM EDT) Pathologist [facility] Hepatitis C Antibody Negative Negative LAB CHEMISTRY METHOD 02/14/2025 2:19 PM EDT [facility] Blood Venous blood specimen / Unknown Venipuncture / Unknown 02/14/2025 9:42 AM EDT 02/14/2025 10:11 AM EDT Garrett Shabazz MD LAB BLOOD ORDERABLES Final Resu lt [facility] [address] [place] [address], * (ABNORMAL) Comprehensive metabolic panel (01/19/2025 10:59 AM EDT) [facility] Sodium 128(L) 133 - 145 mmol/L LAB CHEMISTRY METHOD 01/19/2025 2:51 PM [facility] Potassium 3.4(L) 3.5 - 5.5 mmol/L LAB CHEMISTRY METHOD 01/19/2025 2:51 PM [facility] Chloride 91(L) 96 - 110 mmol/L LAB CHEMISTRY METHOD 01/19/2025 2:51 PM T [facility] CO2 33(H) 21 - 32 mmol/L LAB CHEMISTRY METHOD 01/19/2025 2:51 PM T [facility] Anion Gap 4 3 - 11 LAB CHEMISTRY METHOD 01/19/2025 2:51 PM [facility] Glucose 78 70 - 100 mg/dL LAB CHEMISTRY METHOD 01/19/2025 2:51 PM [facility] BUN 3(L) 5 - 25 mg/dL LAB CHEMISTRY METHOD 01/19/2025 2:51 PM [facility] Creatinine 0.60 0.50 - 1.10 mg/dL LAB CHEMISTRY METHOD 01/19/2025 2:51 PM [facility] eGFR 102 >=60 mL/min/1. 73m2 LAB CHEMISTRY METHOD 01/19/2025 2:51 PM [facility] Comment:Calculation based on the Chronic Kidney Disease Epidemiology Collaboration (CKD-EPI) equation refit without adjustment for race. BUN/Creatinine Ratio 5.0 LAB CHEMISTRY METHOD 01/19/2025 2:51 PM [facility] Calcium 9.0 8.5 - 10.5 mg/dL LAB CHEMISTRY METHOD 01/19/2025 2:51 PM [facility] AST (SGOT) 18 10 - 42 unit/L LAB CHEMISTRY METHOD 01/19/2025 2:51 PM [facility] ALT (SGPT) 25 10 - 60 unit/L LAB CHEMISTRY METHOD 01/19/2025 2:51 PM [facility] Alkaline Phosphatase 133(H) 42 - 121 unit/L LAB CHEMISTRY METHOD 01/19/2025 2:51 PM [facility] Total Protein 6.7 6.0 - 8.0 g/dL LAB CHEMISTRY METHOD 01/19/2025 2:51 PM [facility] Albumin 3.7 3.2 - 5.0 g/dL LAB CHEMISTRY METHOD 01/19/2025 2:51 PM [facility] Total Bilirubin 0.5 0.0 - 1.4 mg/dL LAB CHEMISTRY METHOD 01/19/2025 2:51 PM [facility] Blood Venous blood specimen / Unknown Venipuncture / Unknown 01/19/2025 10:59 AM EDT 01/19/2025 11:33 AM EDT Garrett Shabazz MD LAB BLOOD ORDERABLES Final Resu lt [facility] [address] [place] [address], * COLONOSCOPY Anesthesia - MAC; [facility] ENDOSCOPY (11/08/2024 8:55 AM EST) [...] results. Narrative 11/08/2024 8:[address] [facility] GI Patient Name: Kain Dumont [...] for histology. Procedure Code(s): --- Professional --- 63742, Colonoscopy, flexible; with biopsy, single or multiple CPT copyright 2020 [employer]. All rights reserved. The codes documented in this report are preliminary and upon venue manager review may be revised to meet current compliance requirements. MD Garrett Do MD 11/08/2024 8:59:29 AM This report has been signed electronically.Garrett Shabazz MD Number of Addenda: 0 Note Initiated On: 11/08/2024 8:40 AM Scope In: Scope Out: Endoscopy Department at [facility] - [address] [place] [phone] Procedure Note Garrett Shabazz MD - 11/08/[address] [facility] GI Patient Name: Kain Dumont Procedure Date: 11/08/2024 8:40 AM Date of : 1960 Age: 64 Gender: Female Note Status: Finalized Attending MD: Garrtet Shabazz MD, Procedure Date No Time: 11/08/2024 [...] Findings: There was evidence of a prior cly-pa-zvrtjld-colonic anastomosis in the sigmoid colon. This was patentand was characterized by healthy appearing mucosa. The anastomosis was traversed. The exam was otherwise without abnormality ondirect and retroflexion views. Clara-anal excoriationsnoted. Biopsies were taken with a cold forceps in therectum, in the sigmoid colon and in the distal ileum for histology. Procedure Code(s): --- Professional --- 50791, Colonoscopy, flexible; with biopsy, singleor multiple CPT copyright 2020 [employer]. All rights reserved. The codes documented in this report are preliminary and upon venue manager reviewmay be revised to meet current compliance requirements. MD Garrett Do MD 11/08/2024 8:59:29 AM This report has been signed electronically.Garrett Shabazz MD Number of Addenda: 0 Note Initiated On: 11/08/2024 8:40 AM Scope In: Scope Out: Endoscopy Department at [facility] - [address] [place] [phone] IMPRESSION: - Patent end-to-end ileo-colonic anastomosis, characterized [...] Most Recently Relevant to Health Maintenance Insurance [facility] MEDICARE Member Subscriber Plan / Payer (Ef fective 2019-Present) Name:KAIN DUMONT Relation to Subscriber:Self Name:Kain Dumont Payer ID:[id number] Group ID:[id number] Type:Not on file Address: [place] [address] [place] [phone] Advance Directives Documents on File Type Date Recorded Patient Deck Hand Expl anation Health Care Decision (hx) 11/03/2022 [...] currently active code status orders. Care Teams Client Development Manager Relationship Specialty Start Date End Date Jigar Patel PA [address] [place] [phone] PCP - General 02/26/23
--- OUTSIDE RECORDS SUMMARY | 2025-09-27 10:33 | XMS_ITS | Encounter Summary ---
Author Organization [facility] Address [address] [place] [address] Phone Care Team Providers Care Etymology Teacher Name Role Phone Jigar Patel Primary Care Provider + Edi Montoya MD Unavailable Encounter Details Date Type Department Care Team (Late st Contact Info) Description 10/02/2023 Procedure Pass [facility] Periop [address] [place] [address] Social History Tobacco Use Types Packs/Day Years [...] 10/03/2023 3:00 AM Luisa Don RN * [place] Suicide Severity Rating Scale (Screener/Recent Self-Report) Question Answer Date of Assessment Author 1. Wish to be (Past 1 Month) No 10/03/2023 3:00 AM Luisa Don RN 2. Non-Specific Active Suici jason Thoughts (Past 1 Month) No 10/03/2023 3:00 AM Myrna Don RN 6. Suicidal Behavior (Lifetime) No 3:00 AM Luias Don RN documented as of this encounter Plan of Treatment Not on file documented as of this encounter Visit Diagnoses Not on filedocumented in this encounter Additional Health Concerns Infection Onset Date Last Indicated Resolved Time CoV-Risk Comment:Per note documentation 10/22/2023 10/22/2023 8:09 AM EST Influenza A 10/22/2023 10/22/2023 10/29/2023 1:22 AM EST documented as of this encounter Care Teams Etymology Teacher Relationship Specialty Start Date End Date Jigar Patel PA [address] [place] [address] PCP - General 07/24/22 Edi Montoya MD [address] [place] [address] [place] [address] Pulmonary Disease 09/25/23 documented as of this encounter Additional Source Comments The information contained in this document represents components of the legal health record. It is not the complete legal health record.[facility]
--- OUTSIDE RECORDS SUMMARY | 2025-09-27 10:33 | XMS_ITS | Encounter Summary ---
Author Organization [facility] Address [address] [place] [address] Phone Care Team Providers Care Electronic Instrument Trades Worker Name Role Phone Jigar Patel Primary Care Provider + Edi Montoya MD Unavailable [phone] Encounter Details Date Type Department Care Team (Late st Contact Info) Description 10/02/2022 Procedure Pass [facility] Periop [address] [place] [address] Social History Tobacco Use Types Packs/Day Years [...] documented as of this encounter Care Teams Electronic Instrument Trades Worker Relationship Specialty Start Date End Date Jigar Patel PA [address] [place] [address] PCP - General 07/24/22 Edi Montoya MD [address] [place] [address] [place] [address] Pulmonary Disease 09/25/23 documented as of this encounter Additional Source Comments The information contained in this document represents components of the legal health record. It is not the complete legal health record.[facility]
--- OUTSIDE RECORDS SUMMARY | 2025-09-27 10:33 | XMS_ITS | Encounter Summary ---
Author Organization [facility] Address [address] [place] [address] Phone Care Team Providers Care Transition Mgr Rn Name Role Phone Jigar Patel Primary Care Provider + Edi Montoya MD Unavailable Encounter Details Date Type Department Care Team (Late st Contact Info) Description 11/19/2023 Procedure Pass [facility] [address] [place] [address] Social History Tobacco Use Types Packs/Day Years [...] on filedocumented in this encounter Care Teams Transition Mgr Rn Relationship Specialty Start Date End Date Jigar Patel PA [address] [place] [address] PCP - General 07/24/22 Edi Montoya MD [address] [place] [address] [place] [address] Pulmonary Disease 09/25/23 documented as of this encounter Additional Source Comments The information contained in this document represents components of the legal health record. It is not the complete legal health record.[facility]
--- OUTSIDE RECORDS SUMMARY | 2025-09-27 10:33 | XMS_ITS | Encounter Summary ---
Author Organization [facility] Address [address] [place] [address] Phone Care Team Providers Care Bag Machine Operator Helper Name Role Phone Jigar Patel Primary Care Provider + Edi Montoya MD Unavailable Encounter Details Date Type Department Care Team (Late st Contact Info) Description 10/05/2023 Procedure Pass [facility] [address] [place] [address] Social History Tobacco Use Types Packs/Day Years [...] documented as of this encounter Care Teams Bag Machine Operator Helper Relationship Specialty Start Date End Date Jigar Patel PA [address] [place] [address] PCP - General 07/24/22 Edi Montoya MD [address] [place] [address] [place] [address] Pulmonary Disease 09/25/23 documented as of this encounter Additional Source Comments The information contained in this document represents components of the legal health record. It is not the complete legal health record.[facility]
== END 2025-09-27 09:38 | disposition home or self-care (01) ==
LOC: HO.HOP 09:38
PROVIDERS: PCP Physician Assistant; Visit Provider Clinical Nurse Specialist Psychiatric/Mental Health
DX: F43.12 Post-traumatic stress disorder, chronic (principal); F41.1 Generalized anxiety disorder; F41.0 Panic disorder [episodic paroxysmal anxiety]; F60.3 Borderline personality disorder; F33.9 Major depressive disorder, recurrent, unspecified
CPT/HCPCS: 99213

== ENCOUNTER 2025-09-30 15:15 | Outpatient (AMB) | payer OTHER, SELFPAY ==
[2025-09-30 15:19] VITALS: BP 130/54; PULSE 99; O2SAT 96; BMI 37.7
--- NOTE | 2025-09-30 15:19 | A.OFFVIS_ITS ---
Vital Signs 09/30/25 15:19 Height 5 ft 3 in Weight 212 lb 11.937 oz BMI 37.7 BP 130/54 L Blood Pressure Location Lt brachial Position Sitting Pulse 99 Pulse Source Pulse Oximeter Pulse Oximetry (%) 96 Oxygen Delivery Method Room Air Intake Visit Reasons: COPD Director Of Research And Development Required: No Accompanied by: Self / Same As Patient Allergies baclofen Allergy (Severe, Verified 09/30/25 15:23) GI upset dexamethasone Allergy (Severe, Verified 09/30/25 15:23) Vomiting doxycycline Allergy (Severe, Verified 09/30/25 15:23) Vomiting naproxen (Aleve) Allergy (Severe, Verified 09/30/25 15:23) Vomiting penicillin V Allergy (Severe, Verified 09/30/25 15:23) vomitting Sulfa (Sulfonamide Antibiotics) Allergy (Severe, Verified 09/30/25 15:23) Vomiting ibuprofen (Advil) Allergy (Intermediate, Verified 09/30/25 15:23) Vomiting codeine (Codeine) Allergy (Mild, Verified 09/30/25 15:23) VOMITING aspirin (ASPIRIN) Adverse Reaction (Severe, Verified 09/30/25 15:23) VOMITING HPI Comments Details: The patient is a 65 y/o woman with a history of underlying COPD and tobacco dependency. She continues on the Anoro. Does not appear to be effective for her. Still complains of productive cough and dyspnea. [id number] severity. She did better on the Trelegy. However, her insurance would not cover. Therefore, we will add Arnuity. She has been having issues with significant back pain. Her surgery currently on hold. She is having significant GI issues with active GI bleeding. She will be calling her capacitor pack press operator today for an earlier assessment. We did review her CT scan of the chest that she had this June 2018 demonstrating stable lymphadenopathy and pulmonary nodules. She did have CT scan of the chest while at [facility] demonstrating small pulmonary nodules are stable from 2012. Will see if we can get her in to the lung cancer screening program next year. In the meantime the patient also had pulmonary function studies demonstrating a normal FEV1 suggesting that she has chronic bronchitis with no definitive obstruction on spirometry. There she did have a CT scan of the chest demonstrating again the hiatal hernia dilated esophagus in addition to bilateral airspace disease the bases suggesting aspiration pneumonia and pneumonitis. 07/03/2023 the patient is here for pulmonary follow-up visit. The patient is complaining significant shortness of breath. Moderate severity. Hard to do any activities of daily living. She is suffering at home where she does not have any air conditioning. Her home feels like 100 degrees the patient states. Is very hard to breathe. She was supposed to have an air conditioner placed however has not yet been placed. The patient is very upset. in the meantime we did have ago for 6 minutes walk test. The patient was very dyspneic with a dyspnea score of 8/10. She had to sit down. Her oxygen levels were 98-99%. She did not qualify for any oxygen supplementation. The patient also had a spirometry. She did have pre and post numbers. It appears that the 2nd spirometry the patient is lung capacity decreased. It may have been effort related or fatigue related or neuromuscular disease. Still no evidence of any obstructive airway disease which is reassuring. Also no significant response to bronchodilators noted. She does have a mild restrictive defect. The patient has been on Trelegy inhaler. At this point she does not need additional medications although she which she does need is an air conditioner. She is in participating in the lung cancer screening program. She will be having her yearly CT scan. 01/02/2024 the patient is here for a pulmonary follow-up visit. She has had a very eventful several months. Back in the fall she did go to [place] was evaluated for her hernia. She did undergo an extensive abdominal hernia repair. Ultimately complicated by wound infection in intra-abdominal abscess. She required multiple drains and antibiotics. They were able to clear the infection good. Down she is recovering from that and still having some abdominal discomfort. The 1 good thing is that she did quit smoking. She feels better from a respiratory status. Her chest congestion is improved. Her oxygenation is also improved. She does have the inhalers that she does use with good effect. She has not required her rescue inhaler. The last CT scan of the chest that she has had was from 2021. No evidence of any concerning nodules. She did have some slight pericardial effusion. She had been participating in the lung cancer screening program. At some point she needs to go back in the program although right now she is dealing with her significant GI issue. The patient will follow-up in 8-10 months if the patient develops any worsening symptoms prior to that she will call for an earlier assessment. 09/03/2024 the patient is here for a pulmonary follow-up visit. Overall the patient has been doing okay at least from a respiratory status. She has been working on her GI issues. She recently did have a CT scan of the abdomen at [facility] and was admitted briefly. She has a new ventral hernia. Currently she is doing little better from that standpoint. She does have a worsening cough. She is concerned she is developing bronchitis. The phlegm is yellowish in color. She has been using the Trelegy inhaler with good effect. The patient has not had a lung cancer screening program. She needs to go back on the program. Will refer to our program here. Her last CT scan believe was in 2021. She will continue with the Trelegy inhaler. No need for prednisone right now she is not having any significant wheezing. But has not her short course of antibiotics to prevent her from getting worsening bronchitis. The patient still working with her smoking issues. She is trying to cut down further. Will follow-up in 6-8 months. If he has any issues prior to that she will call for an earlier assessment. 09/30/2025 the patient is here for pulmonary follow-up visit. The patient overall has been doing well from a respiratory status although she still complains of shortness of breath with minimal activity. She was recently in the hospital and she did require oxygen continuously. She was very hypoxic per the patient. I did time the patient has been dealing with issues with the GI system. She does have pancreatitis and pancreatic insufficiency and also a large Abdominal hernia. She needs to get surgery but she needs to quit smoking 1st before having surgery. She is currently on Chantix and she is down to 2 cigarettes a day. I will prescribe the Nicotrol inhaler that she can use along with the Chantix to try to come off completely. In the meantime we did go for a walking oximetry the patient did not need oxygen supplementation she maintain a pulse ox of 98% with activity although she was visibly dyspneic with a dyspnea score of 7/10 in her heart rate was elevated to about 120 beats per minute. The patient will have an overnight oximetry to see if she needs oxygen at nighttime specially with her COPD. Otherwise the patient is doing okay will follow-up in 4 6 months. Hopefully by then she has had her surgery. If she has any issues prior to this she can always call for further recommendations. [facility] Medical History (Updated 09/16/25 @ 13:02 by Freya Mascorro PA-C) History of pulmonary embolism Congestive heart failure HTN (hypertension) HLD (hyperlipidemia) Major depression, recurrent, chronic Generalized anxiety disorder with panic attacks Bipolar disorder, mixed Nicotine dependence, cigarettes, uncomplicated Hypokalemia Flat feet, bilateral Chronic post-traumatic stress disorder (PTSD) Pulmonary nodules Chronic respiratory failure COPD (chronic obstructive pulmonary disease) Abdominal hernia Right lumbar radiculopathy Osteopenia Surgical History History of blepharoplasty History of ventral hernia repair History of resection of small bowel History of ileostomy History of hernia repair History of reversal of ileostomy History of colectomy History of colonoscopy History of umbilical hernia repair History of bladder surgery History of total abdominal hysterectomy and bilateral salpingo-oophorectomy History of cholecystectomy History of appendectomy History of tonsillectomy Family History Father Renal cell cancer Prostate cancer Leukemia Diabetes Hypertension Mother Hypertension Paternal Grandmother Colon cancer Maternal Grandfather Myocardial infarction Sister Lupus Daughter In good health Other Mental health disorder Social History Housing: Apartment Alcohol intake: never Patient Tobacco Use Status: Current someday Tobacco user Tobacco use type: Cigarette Cigarette Packs Per Day: 0.5 Cigarettes Per Day: 5 Years Smoked: (onset 17yo, 1/2-1ppd x 47yrs, 30pyh) e-Cigarette/Vaping Use: Never Used Second Hand Smoke Exposure: Yes service: No Current occupational status: disabled Current occupation: right hand dominant Cognitive needs: Yes (cane/walker) Hearing needs: No Vision needs: Yes (glasses) Review of Systems Const Denies headache(s) Eyes Denies loss of vision ENT Denies vertigo, Denies dizziness, Denies headache(s) and Denies sore throat Card Denies chest pain, Denies leg edema and Denies lightheadedness Resp Denies cough, Denies hemoptysis and Denies wheezing GI Denies abdominal pain, Denies melena, Denies constipation, Denies diarrhea and Denies vomiting Denies urinary frequency, Denies dysuria and Denies urinary urgency Musc Denies arthralgias, Denies joint swelling, Denies numbness and Denies tingling Neuro Denies Abnormal speech present, Denies behavioral changes, Denies vertigo, Denies dizziness, Denies headache(s), Denies loss of vision, Denies memory loss, Denies numbness and Denies tingling Psych Denies anxiety, Denies behavioral changes, Denies depression, Denies memory loss and Denies panic attacks Patrick/Lymph Denies easy bleeding and Denies easy bruising Aller/Immun Denies wheezing Physical Exam Vital Signs: Last Vital Signs Pulse 99 09/30/25 15:19 BP 130/54 L 09/30/25 15:19 Pulse Ox 96 09/30/25 15:19 Oxygen Delivery Method Room Air 09/30/25 15:19 BMI result Body Mass Index 37.7 Const General: alert Chest Chest palpation & inspection: normal inspection of the chest Resp Effort & Inspection: normal respiratory effort Auscultation: diminished lung sounds Cardio Rate: regular rate Rhythm: regular rhythm Heart sounds: S1 normal heart sound present and S2 normal heart sound present GI Palpation (GI): Soft to palpation General: Yes no CVA tenderness Back/Spine/Pelvis Back: no CVA tenderness Skin General skin exam: no rashes or lesions noted Neuro Speech: No Abnormal speech present Extrem General: Yes no clubbing, cyanosis or edema Assessment & Plan Assessment & Plan (1) COPD (chronic obstructive pulmonary disease): Code(s): J44.9 - Chronic obstructive pulmonary disease, unspecified Category: Medical Qualifiers: COPD type: emphysema Emphysema type: centrilobular Qualified Code(s): J43.2 - Centrilobular emphysema Plan: d/c oxygen (2) Chronic respiratory failure: Code(s): J96.10 - Chronic respiratory failure, unspecified whether with hypoxia or hypercapnia Category: Medical Qualifiers: Respiratory failure complication: hypoxia Qualified Code(s): J96.11 - Chronic respiratory failure with hypoxia Plan: The patient does not require oxygen supplementation with activity at this time. (3) Pulmonary nodules: Code(s): R91.8 - Other nonspecific abnormal finding of lung field Category: Medical (4) Smoker: Code(s): F17.200 - Nicotine dependence, unspecified, uncomplicated Category: Social Hx Plan Continue Trelegy DUSTIN as needed overnight oximetry continue chantix, add nicotrol NS as needed LDCT F/U8-12 months Orders: Orders Overnight Pulse Oximetry 09/30/25 J43.2 - Centrilobular emphysema Medications: New nicotine (Nicotrol NS) administer into each nostril 1 spray intranasal Q2H PRN 40 mL 4RF nicotine cravings Refilled albuterol sulfate 90 mcg/actuation 2 inhalations inhalation Q6H PRN 18 grams 12RF shortness of breath or wheezing 30 days J44.9 - Chronic obstructive pulmonary disease, unspecified Coding Level of Care Code Complex visit Add On G2211 Diagnoses Centrilobular emphysema J43.2 COPD type: emphysema Emphysema type: centrilobular Chronic respiratory failure with hypoxia J96.11 Respiratory failure complication: hypoxia Pulmonary nodules R91.8 Smoker F17.200 Time Spent (min) 17
--- OUTSIDE RECORDS SUMMARY | 2025-09-30 19:12 | XMS_ITS | Encounter Summary ---
Author Organization [facility] Address [address] [place] [address] Phone Care Team Providers Care Sheet Rock Installer Name Role Phone Jigar Patel Primary Care Provider + Edi Montoya MD Unavailable Encounter Details Date Type Department Care Team (Late st Contact Info) Description 04/17/2023 Procedure Pass [facility] Periop [address] [place] [address] Social History Tobacco Use Types Packs/Day Years [...] documented as of this encounter Care Teams Sheet Rock Installer Relationship Specialty Start Date End Date Jigar Patel PA [address] [place] [address] PCP - General 07/24/22 Edi Montoya MD [address] [place] [address] [place] [address] Pulmonary Disease 09/25/23 documented as of this encounter Additional Source Comments The information contained in this document represents components of the legal health record. It is not the complete legal health record.[facility]
--- OUTSIDE RECORDS SUMMARY | 2025-09-30 19:12 | XMS_ITS | Encounter Summary ---
Author Organization [facility] Address [address] [place] [address] Phone Care Team Providers Care Parliamentary Librarian Name Role Phone Jigar Patel Primary Care Provider + Edi Montoya MD Unavailable Encounter Details Date Type Department Care Team (Late st Contact Info) Description 11/25/2023 Procedure Pass [facility] CT Imaging, [place] [address] [place] [address] Social History Tobacco Use Types Packs/Day Years [...] on filedocumented in this encounter Care Teams Parliamentary Librarian Relationship Specialty Start Date End Date Jigar Patel PA [address] [place] [address] PCP - General 07/24/22 Edi Motnoya MD [address] [place] [address] [place] [address] Pulmonary Disease 09/25/23 documented as of this encounter Additional Source Comments The information contained in this document represents components of the legal health record. It is not the complete legal health record.[facility]
--- OUTSIDE RECORDS SUMMARY | 2025-09-30 19:12 | XMS_ITS | Encounter Summary ---
Author Organization [facility] Address [address] [place] [address] Phone Care Team Providers Care Log Chain Worker Name Role Phone Jigar Patel Primary Care Provider + Edi Montoya MD Unavailable [phone] Encounter Details Date Type Department Care Team (Late st Contact Info) Description 11/19/2023 Procedure Pass [facility] [address] [place] [address] Social History Tobacco Use Types Packs/Day Years [...] on filedocumented in this encounter Care Teams Log Chain Worker Relationship Specialty Start Date End Date Jigar Patel PA [address] [place] [address] PCP - General 07/24/22 Edi Montoya MD [address] [place] [address] [place] [address] Pulmonary Disease 09/25/23 documented as of this encounter Additional Source Comments The information contained in this document represents components of the legal health record. It is not the complete legal health record.[facility]
--- OUTSIDE RECORDS SUMMARY | 2025-09-30 19:12 | XMS_ITS | Encounter Summary ---
Author Organization [facility] Address [address] [place] [address] Phone Care Team Providers Care Family Resource Management Specialist Name Role Phone Jigar Patel Primary Care Provider + Edi Montoya MD Unavailable [phone] Encounter Details Date Type Department Care Team (Late st Contact Info) Description 04/17/2023 Procedure Pass [facility] Periop [address] [place] [address] Social History Tobacco Use Types Packs/Day Years [...] documented as of this encounter Care Teams Family Resource Management Specialist Relationship Specialty Start Date End Date Jigar Patel PA [address] [place] [address] PCP - General 07/24/22 Edi Montoya MD [address] [place] [address] [place] [address] Pulmonary Disease 09/25/23 documented as of this encounter Additional Source Comments The information contained in this document represents components of the legal health record. It is not the complete legal health record.[facility]
--- OUTSIDE RECORDS SUMMARY | 2025-09-30 19:12 | XMS_ITS | Encounter Summary ---
Author Organization [facility] Address [address] [place] [address] Phone Care Team Providers Care Gas Truck Driver Name Role Phone Jigar Patel Primary Care Provider + Edi Montoya MD Unavailable Encounter Details Date Type Department Care Team (Late st Contact Info) Description 01/20/2023 Procedure Pass [facility] Periop [address] [place] [address] Social History Tobacco Use Types Packs/Day Years [...] documented as of this encounter Care Teams Gas Truck Driver Relationship Specialty Start Date End Date Jigar Patel PA [address] [place] [address] PCP - General 07/24/22 Edi Montoya MD [address] [place] [address] [place] [address] Pulmonary Disease 09/25/23 documented as of this encounter Additional Source Comments The information contained in this document represents components of the legal health record. It is not the complete legal health record.[facility]
--- OUTSIDE RECORDS SUMMARY | 2025-09-30 19:12 | XMS_ITS | Encounter Summary ---
Author Organization [facility] Address [address] [place] [address] Phone Care Team Providers Care Director Work Name Role Phone Jigar Patel Primary Care Provider + Edi Montoya MD Unavailable Encounter Details Date Type Department Care Team (Late st Contact Info) Description 01/20/2023 Procedure Pass [facility] Periop [address] [place] [address] Social History Tobacco Use Types Packs/Day Years [...] as of this encounter Care Teams Director Work Relationship Specialty Start Date End Date Jigar Patel PA [address] [place] [address] PCP - General 07/24/22 Edi Montoya MD [address] [place] [address] [place] [address] Pulmonary Disease 09/25/23 documented as of this encounter Additional Source Comments The information contained in this document represents components of the legal health record. It is not the complete legal health record.[facility]
--- OUTSIDE RECORDS SUMMARY | 2025-09-30 19:12 | XMS_ITS | Encounter Summary ---
Author Organization [facility] Address [address] [place] [address] Care Team Providers Care Box Truck Driver Name Role Phone Jigar Patel Primary Care Provider [phone] Encounter Details Date Type Department Care Team (Late st Contact Info) Description 09/30/2025 Telephone Gastroenterology - [address] [place] [id number] Cordelia Santana MA Social History Tobacco Use Types Packs/Day Years Used Date Smoking Tobacco: Some Days Cigarettes 0.3 47.5 Started: 04/13/1976 Smokeless Tobacco: Never Comments:4-5 a day Alcohol Use Standard Drinks/Week [...] 11:00 PM EST Cheyanne Hodge RN * Do you have serious difficulty [...] documented in this encounter Progress Notes * Lilibeth Mcneil NP - 09/30/2025 1:50 PM EST Thank you for this detailed update. Much appreciated! * Cordelia Santana MA - 09/30/2025 12:59 PM EST Call pt to find out why she hasn't been in the office lately for her Sandostatin injection. Pt states she has very big hernia and every time she gets the injection she gets an obstruction. She has been in the hospital the whole month of July and half of August. She needs to stop smoking cigarettes to qualify, right now she is down to 2 cigarettes a day. When she is down to 0 she can have surgery. The abdominal wall needs to be move because is a very large hernia. She looks 7 months . She has lost ~40 lbs. She goes to [facility] for care and sees Dr Fanny Ferris. She has been diagnosed with AFIB. Bottom line she can't have the Sandostatin injection until hernia surgery is done. She is having ~20 bm a day but she is keeping her self hydrated so she is doing okay. Sometimes she passes out so she is looking forward to resume the Sandostatin injections soon. She will have DEC[employer]KER bring her to get the bag for her Sandostatin medication we are providing her to help with the travel of the med. documented in this encounter Plan of Treatment Not on file documented as of this encounter Visit Diagnoses Not on filedocumented in this encounter Care Teams Box Truck Driver Relationship Specialty [place] [address] [place] [phone] PCP - General 02/26/23 documented as of this encounter
--- OUTSIDE RECORDS SUMMARY | 2025-09-30 19:12 | XMS_ITS | Encounter Summary ---
Author Organization [facility] Address [address] [place] [address] Phone Care Team Providers Care Electrician'S Helper Name Role Phone Jigar Patel Primary Care Provider + Edi Montoya MD Unavailable Encounter Details Date Type Department Care Team (Late st Contact Info) Description 10/22/2023 Procedure Pass [facility] Cross Sectional Interventional Radiology [address] [place] [address] Social History Tobacco Use Types Packs/Day Years [...] documented as of this encounter Care Teams Electrician'S Helper Relationship Specialty Start Date End Date Jigar Patel PA [address] [place] [address] PCP - General 07/24/22 Edi Montoya MD [address] [place] [address] [place] [address] Pulmonary Disease 09/25/23 documented as of this encounter Additional Source Comments The information contained in this document represents components of the legal health record. It is not the complete legal health record.[facility]
--- OUTSIDE RECORDS SUMMARY | 2025-09-30 19:13 | XMS_ITS | Encounter Summary ---
Author Organization [facility] Address [address] [place] [address] Phone Care Team Providers Care Plant Hr Manager Name Role Phone Jigar Patel Primary Care Provider + Edi Montoya MD Unavailable Encounter Details Date Type Department Care Team (Late st Contact Info) Description 10/05/2023 Procedure Pass [facility] [address] [place] [address] Social History Tobacco Use Types Packs/Day Years [...] documented as of this encounter Care Teams Plant Hr Manager Relationship Specialty Start Date End Date Jigar Patel PA [address] [place] [address] PCP - General 07/24/22 Edi Montoya MD [address] [place] [address] [place] [address] Pulmonary Disease 09/25/23 documented as of this encounter Additional Source Comments The information contained in this document represents components of the legal health record. It is not the complete legal health record.[facility]
--- OUTSIDE RECORDS SUMMARY | 2025-09-30 19:13 | XMS_ITS | Encounter Summary ---
Author Organization [facility] Address [address] [place] [address] Phone Care Team Providers Care Bag Inspector Name Role Phone Jigar Patel Primary Care Provider + Edi Montoya MD Unavailable [phone] Encounter Details Date Type Department Care Team (Late st Contact Info) Description 10/10/2022 Procedure Pass [facility] [address] [place] [address] Social History Tobacco Use Types Packs/Day Years [...] 5:20 PM EST Callie Meza, RN * [place] Suicide Severity Rating Scale (Screener/Recent Self-Report) Question [...] as of this encounter Care Teams Bag Inspector Relationship Specialty Start Date End Date Jigar Patel PA [address] [place] [address] PCP - General 07/24/22 Edi Montoya MD [address] [place] [address] [place] [address] Pulmonary Disease 09/25/23 documented as of this encounter Additional Source Comments The information contained in this document represents components of the legal health record. It is not the complete legal health record.[facility]
--- OUTSIDE RECORDS SUMMARY | 2025-09-30 19:13 | XMS_ITS | Clinical Summary ---
Author Organization [facility] [address] [facility] Address [address] [place] [address] Phone Care Team Providers Care Money Laundering Investigator Name Role Phone Jigar Patel Primary Care Provider [phone] Allergies Active Allergy Reactions Criticality Noted Date [...] DAY 30 tablet 10/27/20 25 Active pancrelipase, Bbm-Tmmq-Ynma, (CREON) 24,000-76,000 -120,000 unit capsuleIndications: Pancreatic insufficiency Take 1 capsule (24,000 Units total) by mouth 4 (four) times a day. 360 each 3 09/05/20 25 Active Creon 36,000-114,000- 180,000 unit capsule,delayed release(DR/EC)Indic ations:Pancreatic insufficiency TAKE 2 CAPSULES BY MOUTH 4 (FOUR) TIMES A DAY. 600 capsule 2 09/07/20 25 Active pancrelipase, Rrv-Nmfe-Bmlr, (CREON) 24,000-76,000 -120,000 unit capsule Take 1 capsule (24,000 Units total) by mouth 4 (four) times a day. 025 Discontin [facility], or Other Facility Administered Medication Ordered Dose Route Frequency Start Date End Date Status loperamide (IMODIUM) capsule 2 mgIndications:Functio nal diarrhea 2 mg oral 4 times daily PRN 10/26/2024 Activ e Active Problems Problem Noted Date Diagnosed Date Class 1 obesity 07/01/2025 Bipolar disorder ([facility] V24, [facility] V28) 05/27 Severe obesity ([facility] V24, [facility] V28) 2024 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 Status post cholecystectomy 06/07/2025 Diarrhea due to malabsorption 06/07/2025 Functional diarrhea 10/26/2024 Ventral hernia 10/22/2024 Intraabdominal fluid collection 10/21/2023 SBO (small bowel obstruction) ([facility] V24, [facility]/ [facility] V28) 10/10/2022 Abdominal pain 08/22/2022 Incisional hernia, without obstruction or gangre ne 05/17/2022 Smoking addiction 10/29/2021 Anxiety disorder 10/29/2021 Incontinence 10/29/2021 Hyponatremia 10/29/2021 Gastric reflux 10/29/2021 Gastroparesis 10/29/2021 Hyperglycemia 10/29/2021 Irritable bowel syndrome 10/29/2021 Parasomnia 10/29/2021 Peristomal dermatitis 10/29/2021 Psychogenic polydipsia 10/29/2021 Tardive dyskinesia 10/29/2021 Asthma 10/29/2021 Atypical migraine 10/29/2021 Ileostomy dysfunction ([facility]24, [facility] V28) 10/13/2021 Hypothyroidism 03/05/2021 Hypertension 03/05/2021 Chronic narcotic dependence ([facility] V24, [facility] V28) 03/05/2021 Schizoaffective disorder ([facility] V24, [facility] V 28) 03/05/2021 Chronic constipation 02/22/2021 COPD (chronic obstructive pu lmonary disease) ([facility] V24, [facility] V28) 01/11/2019 KALE (obstructive sleep apnea) 01/11/2019 Overview (08/31/2024): [facility] Home Polysomnogram: Date 02/04/2019; Wt 235#; [...] Encounters Date Type Department Care Team Description 09/30/2025 Telephone Gastroenterology - [address] [facility] [address] [phone] Cordelia Santana [place] 07/04/2025 11:45 AM EDT Clinical Support Gastroenterology - [address] [phone] Functional diarrhea (Primary Dx) 07/04/2025 Treatment Gastroenterology - [address] [phone] Salud Forman PA from Last 3 Months Surgical History Surgery Date Site/Laterality Comments HERNIA REPAIR PROCEDURE: LA REPAIR FIRST ABDOMINAL WALL HERNIA OTHER SURGICAL [...] Hepatitis C antibody (02/14/2025 9:42 AM EDT) [facility] Hepatitis C Antibody Negative Negative LAB CHEMISTRY METHOD 02/14/2025 2:[address] [facility] Blood Venous blood specimen / Unknown Venipuncture / Unknown 02/14/2025 9:42 AM EDT 02/14/2025 10:11 AM EDT Garrett Shabazz MD LAB BLOOD ORDERABLES Final Resu lt [facility] [address] [place] [address], * (ABNORMAL) Comprehensive metabolic panel (01/19/2025 10:59 AM EDT) [facility] Sodium 128(L) 133 - 145 mmol/L LAB CHEMISTRY METHOD 01/19/2025 2:[address] [facility] Potassium 3.4(L) 3.5 - 5.5 mmol/L LAB CHEMISTRY METHOD 01/19/2025 2:[address] [facility] Chloride 91(L) 96 - 110 mmol/L LAB CHEMISTRY METHOD 01/19/2025 2:[address] [facility] CO2 33(H) 21 - 32 mmol/L LAB CHEMISTRY METHOD 01/19/2025 2:[address] [facility] Anion Gap 4 3 - 11 LAB CHEMISTRY METHOD 01/19/2025 2:[address] [facility] Glucose 78 70 - 100 mg/dL LAB CHEMISTRY METHOD 01/19/2025 2:51 PM [facility] BUN 3(L) 5 - 25 mg/dL LAB CHEMISTRY METHOD 01/19/2025 2:51 PM [facility] Creatinine 0.60 0.50 - 1.10 mg/dL LAB CHEMISTRY METHOD 01/19/2025 2:51 PM [facility] eGFR 102 >=60 mL/min/1. 73m2 LAB CHEMISTRY METHOD 01/19/2025 2:51 PM [facility] Comment:Calculation based on the Chronic Kidney Disease Epidemiology Collaboration (CKD-EPI) equation refit without adjustment for race. BUN/Creatinine Ratio 5.0 LAB CHEMISTRY METHOD 01/19/2025 2:51 PM [facility] Calcium 9.0 8.5 - 10.5 mg/dL LAB CHEMISTRY METHOD 01/19/2025 2:51 PM [facility] AST (SGOT) 18 10 - 42 unit/L LAB CHEMISTRY METHOD 01/19/2025 2:51 PM [facility] ALT (SGPT) 25 10 - 60 unit/L LAB CHEMISTRY METHOD 01/19/2025 2:51 PM [facility] Alkaline Phosphatase 133(H) 42 - 121 unit/L LAB CHEMISTRY METHOD 01/19/2025 2:51 PM [facility] Total Protein 6.7 6.0 - 8.0 g/dL LAB CHEMISTRY METHOD 01/19/2025 2:51 PM [facility] Albumin 3.7 3.2 - 5.0 g/dL LAB CHEMISTRY METHOD 01/19/2025 2:51 PM [facility] Total Bilirubin 0.5 0.0 - 1.4 mg/dL LAB CHEMISTRY METHOD 01/19/2025 2:51 PM [facility] Blood Venous blood specimen / Unknown Venipuncture / Unknown 01/19/2025 10:59 AM EDT 01/19/2025 11:33 AM EDT Garrett Shabazz MD LAB BLOOD ORDERABLES Final [facility]u [facility] [address] [place] [address], * COLONOSCOPY Anesthesia - MAC; [facility] ENDOSCOPY (11/08/2024 8:55 AM EST) [...] pathology results. Narrative 11/08/2024 8:59 AM EST [facility] GI Patient Name: Yu Dumont [...] for histology. Procedure Code(s): --- Professional --- 20645, Colonoscopy, flexible; with biopsy, single or multiple CPT copyright 2020 [employer] [place] [employer]. All rights reserved. The codes documented in this report are preliminary and upon hay sorter review may be revised to meet current compliance requirements. MD Garrett Do MD 11/08/2024 8:59:29 AM This report has been signed electronically.Garrett Shabazz MD Number of Addenda: 0 Note Initiated On: 11/08/2024 8:40 AM Scope In: Scope Out: Endoscopy Department at [facility] - [address] [place] [phone] Procedure Note Garrett Shabazz MD - 11/08/2024 [facility] Patient Name: Yu Dumont [...] Findings: There was evidence of a prior xlf-ke-hpbqavy-colonic anastomosis in the sigmoid colon. This was patentand was characterized by healthy appearing mucosa. The anastomosis was traversed. The exam was otherwise without abnormality ondirect and retroflexion views. Clara-anal excoriationsnoted. Biopsies were taken with a cold forceps in therectum, in the sigmoid colon and in the distal ileum for histology. Procedure Code(s): --- Professional --- 96965, Colonoscopy, flexible; with biopsy, singleor multiple CPT copyright 2020 [employer] [place] [employer]. All rights reserved. The codes documented in this report are preliminary and upon hay sorter reviewmay be revised to meet current compliance requirements. MD Garrett Do MD 11/08/2024 8:59:29 AM This report has been signed electronically.Garrett Shabazz MD Number of Addenda: 0 Note Initiated On: 11/08/2024 8:40 AM Scope In: Scope Out: Endoscopy Department at [facility] - [address] [place] [phone] IMPRESSION: - Patent end-to-end ileo-colonic anastomosis, characterized [...] Subscriber Plan / Payer (Ef fective 2019-Present) Name:NOE DUMONTHLEEN Relation to Subscriber:Self Name:RenoNoe ballYu Dorian Payer ID:[id number] Group ID:[id number] Type:Not on file Address: [place] [address] [place] [phone] Advance Directives Documents on File Type Date Recorded 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 Care Teams Money Laundering Investigator Relationship Specialty Start Date End Date Jigar Patel PA [address] [place] [phone] PCP - General 02/26/23
--- OUTSIDE RECORDS SUMMARY | 2025-09-30 19:13 | XMS_ITS | Clinical Summary ---
Author Organization [facility] Address [address] [place] [address] Phone Care Team Providers Care Fish Housekeeper Name Role Phone Jigar Patel Primary Care Provider + Edi Montoya MD Unavailable Allergies Active Allergy Reactions Criticality Noted Date [...] this topic Medical Devices Implanted Type Area Business Performance Specialist Device Identifier Shelf Expiration Date Model / Serial / Lot Mesh Surgical [id number] [employer] Pocketed Bioresorbable Open Positioning System Oval - [id number] Implanted:Qty: 1 on 10/02/2023 by Chintan Figueroa MD at [facility] N/A: Abdomen [employer] 12/24/2024 [id number] / [id number] / [id number] Procedures Procedure Name Priority Date/Time Associated Diagnosis Comments POTASSIUM Routine 10/25/2023 5:23 AM EST BASIC METABOLIC PANEL (BMP) Routine 10/24/2023 7:18 AM EST LIPID PANEL Routine 10/01/2023 12:11 PM EST Preoperative cardiovascular examination from Last 3 Months or Most Recently Relevant to Health Maintenance Results * (ABNORMAL) Potassium (10/25/2023 5:23 AM EST) POTASSIUM 3.3(L) 3.4 - 5.1 mmol/L [facility] Blood 10/25/2023 5:23 AM EST 10/25/2023 5:39 AM EST us Bolivar Meyer MD LAB BLOOD BKR ORDERA BLES Final Result [facility] [address] [place] [phone] * (ABNORMAL) Basic metabolic panel (10/24/2023 7:18 AM EST) SODIUM 134(L) 136 - 145 mmol/L [facility] POTASSIUM 3.0(L) 3.4 - 5.1 mmol/L [facility] CHLORIDE 93(L) 98 - 107 mmol/L [facility] CO2 30 22 - 31 mmol/L [facility] BUN <3(L) 6 - 23 mg/dL [facility] CREATININE 0.30(L) 0.50 - 1.20 mg/dL [facility] GLUCOSE 99 70 - 100 mg/dL [facility] CALCIUM 8.1(L) 8.8 - 10.7 mg/dL [facility] EGFR >120 >59 mL/min/1. 73m2 [facility] Comment:Estimated glomerular filtration rate calculated using the CKD-EPI refit equation. ANION GAP 11 7 - 17 mmol/L [facility] Blood 10/24/2023 7:18 AM EST 10/24/2023 8:13 AM EST Bolivar Meyer MD LAB BLOOD BKR ORDERA BLES Final Result Performing Organization Address [facility] Co de Phone Number [facility] [address] [place] [address] * (ABNORMAL) Lipid panel (10/01/2023 12:11 PM EST) CHOLESTEROL 166 <200 mg/dL [facility] TRIGLYCERIDES 152(H) 35 - 150 mg/dL [facility] HDL 60 40 - 80 mg/dL [facility] CALCULATED LDL 76 50 - 129 mg/dL [facility] VLDL 30 <31 mg/dL [facility] CARDIAC RISK RATIO 2.8 0.0 - 4.0 [facility] 10/01/2023 12:1 1 PM EST 10/01/2023 12:21 PM EST Isabel Cameron MD LAB BLOOD BKR ORDERABLES F inal Result Performing Organization Address City/[facility] Co de Phone Number [facility] [address] [place] [phone] from Last 3 Months or Most Recently Relevant to Health Maintenance Insurance MEDICARE PART A & B [facility] CARE MEDICARE REPLACEMENT [place] [facility] MEDICARE PART A & B [facility] CARE MEDICARE REPLACEMENT MEDICARE PART A & B CARE MEDICARE REPLACEMENT MEDICARE PART A & B Member Subscriber Plan / Payer (Ef fective 1999-) Name:Yu Morgan Member ID:[id number] Relation to Subscriber:Self Name:Yu Morgan Subscriber ID:[id number] Payer ID:[id number] Group ID:Not on file Type:Medicare Address: [employer] [address] [place] [address] [place] [address] CARE MEDICARE REPLACEMENT MEDICARE PART A & B [facility] CARE MEDICARE REPLACEMENT MEDICARE PART A & [place] [address] CARE MEDICARE REPLACEMENT MEDICARE PART A & B Member Subscriber Plan / Payer (Ef fective 1999-Present) Name:Yu Morgan Member ID:[id number] Relation to Subscriber:Self Name:Yu Morgan Subscriber ID:[id number] Payer ID:[id number] Group ID:Not on file Type:Medicare [facility] [address] [place] [address] [place] [address] CARE MEDICARE REPLACEMENT MEDICARE PART A & B CARE MEDICARE REPLACEMENT [place] [address] MEDICARE PART A & B CARE MEDICARE REPLACEMENT Advance Directives For more information, please contact: [phone] (9AM - 5PM [facility], Friday-Friday) Documents on File Type Date Recorded 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 It is not the complete legal health record.[facility]
--- OUTSIDE RECORDS SUMMARY | 2025-09-30 19:13 | XMS_ITS | Encounter Summary ---
Author Organization [facility] Address [address] [place] [address] Phone Care Team Providers Care Missile Mechanic Name Role Phone Jigar Patel Primary Care Provider + Edi Montoya MD Unavailable Encounter Details Date Type Department Care Team (Late st Contact Info) Description 10/02/2023 Procedure Pass [facility] Periop [address] [place] [address] Social History Tobacco Use Types Packs/Day Years [...] 10/03/2023 3:00 AM Luisa Don RN * [place] Suicide Severity Rating Scale (Screener/Recent Self-Report) Question [...] documented as of this encounter Care Teams Missile Mechanic Relationship Specialty Start Date End Date Jigar Patel PA [address] [place] [address] PCP - General 07/24/22 Edi Montoya MD [address] [place] [address] [place] [address] Pulmonary Disease 09/25/23 documented as of this encounter Additional Source Comments The information contained in this document represents components of the legal health record. It is not the complete legal health record.[facility]
--- OUTSIDE RECORDS SUMMARY | 2025-09-30 19:13 | XMS_ITS | Encounter Summary ---
Author Organization [facility] Address [address] [place] [address] Phone Care Team Providers Care Juvenile Counselor Name Role Phone Jigar Patel Primary Care Provider + Edi Montoya MD Unavailable Encounter Details Date Type Department Care Team (Late st Contact Info) Description 08/21/2022 Procedure Pass [facility] [address] [place] [address] Social History Tobacco Use Types Packs/Day Years [...] 12:15 PM EDT Natalie Calloway RN * [place] Suicide Severity Rating Scale (Screener/Recent Self-Report) Question [...] documented as of this encounter Care Teams Juvenile Counselor Relationship Specialty Start Date End Date Jigar Patel PA [address] [place] [address] PCP - General 07/24/22 Edi Montoya MD [address] [place] [address] [place] [address] Pulmonary Disease 09/25/23 documented as of this encounter Additional Source Comments The information contained in this document represents components of the legal health record. It is not the complete legal health record.[facility]
--- OUTSIDE RECORDS SUMMARY | 2025-09-30 19:13 | XMS_ITS | Encounter Summary ---
Author Organization [facility] Address [address] [place] [address] Phone Care Team Providers Care Industrial Analyst Name Role Phone Jigar Patel Primary Care Provider + Edi Montoya MD Unavailable [phone] Encounter Details Date Type Department Care Team (Late st Contact Info) Description 09/25/2023 Procedure Pass [facility] Echocardiography [address] [place] [address] Social History Tobacco Use Types Packs/Day Years [...] documented as of this encounter Care Teams Industrial Analyst Relationship Specialty Start Date End Date Jigar Patel PA [address] [place] [address] PCP - General 07/24/22 Edi Montoya MD [address] [place] [address] [place] [address] Pulmonary Disease 09/25/23 documented as of this encounter Additional Source Comments The information contained in this document represents components of the legal health record. It is not the complete legal health record.[facility]
--- OUTSIDE RECORDS SUMMARY | 2025-09-30 19:13 | XMS_ITS | Encounter Summary ---
Author Organization [facility] Address [address] [place] [address] Phone Care Team Providers Care Harp Maker Name Role Phone Jigar Patel Primary Care Provider + Edi Montoya MD Unavailable Encounter Details Date Type Department Care Team (Late st Contact Info) Description 10/02/2022 Procedure Pass [facility] Periop [address] [place] [address] Social History Tobacco Use Types Packs/Day Years [...] documented as of this encounter Care Teams Harp Maker Relationship Specialty Start Date End Date Jigar Patel PA [address] [place] [address] PCP - General 07/24/22 Edi Montoya MD [address] [place] [address] [place] [address] Pulmonary Disease 09/25/23 documented as of this encounter Additional Source Comments The information contained in this document represents components of the legal health record. It is not the complete legal health record.[facility]
== END 2025-09-30 15:44 | disposition home or self-care (01) ==
LOC: HO.HPS 15:16
PROVIDERS: PCP Physician Assistant; Visit Provider Hospitalist
DX: J43.2 Centrilobular emphysema (principal); J96.11 Chronic respiratory failure with hypoxia; R91.8 Other nonspecific abnormal finding of lung field; F17.200 Nicotine dependence, unspecified, uncomplicated
CPT/HCPCS: 99213; G2211

== ENCOUNTER → 2025-09-30 15:15 | Outpatient (BNVA) | payer OTHER, SELFPAY | PROVIDERS: PCP Physician Assistant; Visit Provider Hospitalist | DX: J43.2 Centrilobular emphysema (principal); J96.11 Chronic respiratory failure with hypoxia; R91.8 Other nonspecific abnormal finding of lung field; Z79.899 Other long term (current) drug therapy; F17.210 Nicotine dependence, cigarettes, uncomplicated | CPT/HCPCS: 99212 ==

== ENCOUNTER 2025-10-04 14:14 | Outpatient (AMB) | payer OTHER, SELFPAY ==
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
--- OUTSIDE RECORDS SUMMARY | 2025-10-04 20:12 | XMS_ITS | Encounter Summary ---
Author Organization [facility] Address [address] [place] [address] Phone Care Team Providers Care Instructor Robotics Name Role Phone Jigar Patel Primary Care Provider + Edi Montoya MD Unavailable Encounter Details Date Type Department Care Team (Late st Contact Info) Description 10/22/[address] [facility] Cross Sectional Interventional Radiology [address] [place] [address] Social History Tobacco Use Types Packs/Day Years [...] documented as of this encounter Care Teams Instructor Robotics Relationship Specialty Start Date End Date Jigar Patel PA [address] [place] [address] PCP - General 07/24/22 Edi Montoya MD [address] [place] [address] [place] [address] Pulmonary Disease 09/25/23 documented as of this encounter Additional Source Comments The information contained in this document represents components of the legal health record. It is not the complete legal health record.[facility]
--- OUTSIDE RECORDS SUMMARY | 2025-10-04 20:12 | XMS_ITS | Encounter Summary ---
Author Organization [facility] Address [address] [place] [address] Phone Care Team Providers Care Warper Creeler Name Role Phone Jigar Patel Primary Care Provider + Edi Montoya MD Unavailable Encounter Details Date Type Department Care Team (Late st Contact Info) Description 01/20/2023 Procedure Pass [facility] Periop [address] [place] [address] Social History Tobacco Use Types Packs/Day Years [...] documented as of this encounter Care Teams Warper Creeler Relationship Specialty Start Date End Date Jigar Patel PA [address] [place] [address] PCP - General 07/24/22 Edi Montoya MD [address] [place] [address] [place] [address] Pulmonary Disease 09/25/23 documented as of this encounter Additional Source Comments The information contained in this document represents components of the legal health record. It is not the complete legal health record.[facility]
--- OUTSIDE RECORDS SUMMARY | 2025-10-04 20:12 | XMS_ITS | Encounter Summary ---
Author Organization [facility] Address [address] [place] [address] Phone Care Team Providers Care Senior Systems Developer Name Role Phone Jigar Patel Primary Care Provider + Edi Montoya MD Unavailable Encounter Details Date Type Department Care Team (Late st Contact Info) Description 01/20/2023 Procedure Pass [facility] Periop [address] [place] [address] Social History Tobacco Use Types Packs/Day Years [...] documented as of this encounter Care Teams Senior Systems Developer Relationship Specialty Start Date End Date Jigar Patel PA [address] [place] [address] PCP - General 07/24/22 Edi Montoya MD [address] [place] [address] [place] [address] Pulmonary Disease 09/25/23 documented as of this encounter Additional Source Comments The information contained in this document represents components of the legal health record. It is not the complete legal health record.[facility]
--- OUTSIDE RECORDS SUMMARY | 2025-10-04 20:14 | XMS_ITS | Encounter Summary ---
Author Organization [facility] Address [address] [place] [address] Phone Care Team Providers Care Tire Bagger Name Role Phone Jigar Patel Primary Care Provider + Edi Montoya MD Unavailable Encounter Details Date Type Department Care Team (Late st Contact Info) Description 08/21/2022 Procedure Pass [facility] [address] [place] [address] Social History Tobacco Use Types Packs/Day Years [...] 12:15 PM EDT Natalie Calloway RN * Miranda Suicide Severity Rating Scale (Screener/Recent Self-Report) Question [...] documented as of this encounter Care Teams Tire Bagger Relationship Specialty Start Date End Date Jigar Patel PA [address] [place] [address] PCP - General 07/24/22 Edi Montoya MD [address] [place] [address] [place] [address] Pulmonary Disease 09/25/23 documented as of this encounter Additional Source Comments The information contained in this document represents components of the legal health record. It is not the complete legal health record.[facility]
--- OUTSIDE RECORDS SUMMARY | 2025-10-04 20:14 | XMS_ITS | Encounter Summary ---
Author Organization [facility] Address [address] [place] [address] Phone Care Team Providers Care Wind Operations Supervisor Name Role Phone Jigar Patel Primary Care Provider + Edi Montoya MD Unavailable Encounter Details Date Type Department Care Team (Late st Contact Info) Description 10/10/2022 Procedure Pass [facility] [address] [place] [address] Social History Tobacco Use Types Packs/Day Years [...] 5:20 PM EST Callie Meza, RN * [place] Suicide Severity Rating Scale (Screener/Recent Self-Report) Question [...] documented as of this encounter Care Teams Wind Operations Supervisor Relationship Specialty Start Date End Date Jigar Patel PA [address] [place] [address] PCP - General 07/24/22 Edi Montoya MD [address] [place] [address] [place] [address] Pulmonary Disease 09/25/23 documented as of this encounter Additional Source Comments The information contained in this document represents components of the legal health record. It is not the complete legal health record.[facility]
--- OUTSIDE RECORDS SUMMARY | 2025-10-04 20:14 | XMS_ITS | Encounter Summary ---
Author Organization [facility] Address [address] [place] [address] Phone Care Team Providers Care Accountant Cost Name Role Phone Jigar Patel Primary Care Provider + Edi Montoya MD Unavailable Encounter Details Date Type Department Care Team (Late st Contact Info) Description 09/25/2023 Procedure Pass [facility] Echocardiography [address] [place] [address] Social History Tobacco Use Types Packs/Day Years [...] documented as of this encounter Care Teams Accountant Cost Relationship Specialty Start Date End Date Jigar Patel PA [address] [place] [address] PCP - General 07/24/22 Edi Montoya MD [address] [place] [address] [place] [id number] Pulmonary Disease 09/25/23 documented as of this encounter Additional Source Comments The information contained in this document represents components of the legal health record. It is not the complete legal health record.[facility]
--- OUTSIDE RECORDS SUMMARY | 2025-10-04 20:14 | XMS_ITS | Encounter Summary ---
Author Organization [facility] Address [address] [place] [address] Phone Care Team Providers Care Automation Machine Operator Name Role Phone Jigar Patel Primary Care Provider + Edi Montoya MD Unavailable [phone] Encounter Details Date Type Department Care Team (Late st Contact Info) Description 10/02/2022 Procedure Pass [facility] Periop [address] [place] [address] Social History Tobacco Use Types Packs/Day Years [...] documented as of this encounter Care Teams Automation Machine Operator Relationship Specialty Start Date End Date Jigar Patel PA [address] [place] [address] PCP - General 07/24/22 Edi Montoya MD [address] [place] [address] [place] [address] Pulmonary Disease 09/25/23 documented as of this encounter Additional Source Comments The information contained in this document represents components of the legal health record. It is not the complete legal health record.[facility]
--- OUTSIDE RECORDS SUMMARY | 2025-10-04 20:14 | XMS_ITS | Clinical Summary ---
Author Organization [facility] Address [address] [place] [address] Phone Care Team Providers Care Skidway Worker Name Role Phone Jigar Patel Primary [...] this topic Medical Devices Implanted Type Area Asbestos Hazard Abatement Worker Device Identifier Shelf Expiration Date Model / Serial / Lot Mesh Surgical [id number] Ph[employer] St Pocketed Bioresorbable Open Positioning System Oval - [id number] Implanted:Qty: 1 on 10/02/2023 by Chintan Figueroa MD at [facility] N/A: Abdomen [employer] 12/24/2024 [id number] / [id number] / [id number] Procedures Procedure Name Priority Date/Time Associated Diagnosis Comments POTASSIUM Routine 10/25/2023 5:23 AM EST BASIC METABOLIC PANEL (BMP) Routine 10/24/2023 7:18 AM EST LIPID PANEL Routine 10/01/2023 12:11 PM EST Preoperative cardiovascular examination from Last 3 Months or Most Recently Relevant to Health Maintenance Results * (ABNORMAL) Potassium (10/25/2023 5:23 AM EST) POTASSIUM 3.3(L) 3.4 - 5.1 mmol/L [facility] Blood 10/25/2023 5:23 AM EST 10/25/2023 5:39 AM EST us Bolivar Meyer MD LAB BLOOD BKR ORDERA BLES Final Result [facility] [address] [place] [address] * (ABNORMAL) Basic metabolic panel (10/24/2023 7:18 AM EST) SODIUM 134(L) 136 - 145 mmol/L [facility] POTASSIUM 3.0(L) 3.4 - 5.1 mmol/L [facility] CHLORIDE 93(L) 98 - 107 mmol/L [facility] CO2 30 22 - 31 mmol/L [facility] BUN <3(L) 6 - 23 mg/dL [facility] CREATININE 0.30(L) 0.50 - 1.20 mg/dL [facility] GLUCOSE 99 70 - 100 mg/dL [facility] CALCIUM 8.1(L) 8.8 - 10.7 mg/dL [facility] EGFR >120 >59 mL/min/1. 73m2 [facility] Comment:Estimated glomerular filtration rate calculated using the CKD-EPI refit equation. ANION GAP 11 7 - 17 mmol/L [facility] Blood 10/24/2023 7:18 AM EST 10/24/2023 8:13 AM EST Bolivar Meyer MD LAB BLOOD BKR ORDERA BLES Final Result Performing Organization Address [facility] Co de Phone Number [facility] [address] [place] [address] * (ABNORMAL) Lipid panel (10/01/2023 12:11 PM EST) CHOLESTEROL 166 <200 mg/dL [facility] TRIGLYCERIDES 152(H) 35 - 150 mg/dL [facility] HDL 60 40 - 80 mg/dL [facility] CALCULATED LDL 76 50 - 129 mg/dL [facility] VLDL 30 <31 mg/dL [facility] CARDIAC RISK RATIO 2.8 0.0 - 4.0 [facility] 10/01/2023 12:1 1 PM EST 10/01/2023 12:21 PM EST Isabel Cameron MD LAB BLOOD BKR ORDERABLES F inal Result Performing Organization Address City/[facility] Co de Phone Number [facility] [address] [place] [phone] from Last 3 Months or Most Recently Relevant to Health Maintenance Insurance MEDICARE PART A & B [facility] CARE MEDICARE REPLACEMENT [place] MEDICARE PART A & B [facility] CARE MEDICARE REPLACEMENT MEDICARE PART A & B CARE MEDICARE REPLACEMENT MEDICARE PART A & B Member Subscriber Plan / Payer (Ef fective 1999-) Name:Yu Morgan Member ID:[id number] Relation to Subscriber:Self Name:Yu Mogran Subscriber ID:[id number] Payer ID:[id number] Group ID:Not on file Type:Medicare Address: [employer] [address] [place] [address] [place] [address] CARE MEDICARE REPLACEMENT MEDICARE PART A & B [facility] CARE MEDICARE REPLACEMENT MEDICARE PART A & [place] [address] [address] [place] [address] CARE MEDICARE REPLACEMENT MEDICARE PART A & B Member Subscriber Plan / Payer (Ef fective 1999-Present) Name:Yu Morgan Member ID:[id number] Relation to Subscriber:Self Name:Yu Morgan Subscriber ID:[id number] Payer ID:[id number] Group ID:Not on file Type:Medicare Address: [facility] [address] [place] [address] [place] [address] CARE MEDICARE REPLACEMENT MEDICARE PART A & B CARE MEDICARE REPLACEMENT [place] [id number] MEDICARE PART A & B CARE MEDICARE REPLACEMENT Advance Directives For more information, please contact: [phone] (9AM - 5PM [facility], Friday-Friday) Documents on File Type Date Recorded Patient Warehouse Receiver Expl anation Healthcare Proxy 10/10/2023 4:15 PM [...] Status Communicated To: Inpatient Attending Care Teams Skidway Worker Relationship Specialty Start Date End Date Jigar Patel PA [address] [place] [address] PCP - General 07/24/22 Edi Montoya MD [address] [place] [address] [place] [address] Pulmonary Disease 09/25/23 Additional Source Comments The information contained in this document represents components of the legal health record. It is not the complete legal health record.[facility]
--- OUTSIDE RECORDS SUMMARY | 2025-10-04 20:14 | XMS_ITS | Encounter Summary ---
Author Organization [facility] Address [address] [place] [address] Phone Care Team Providers Care Blue Split Trimmer Name Role Phone Jigar Patel Primary Care Provider + Edi Montoya MD Unavailable Encounter Details Date Type Department Care Team (Late st Contact Info) Description 10/05/[address] [facility] [address] [place] [address] Social History Tobacco Use Types Packs/Day Years [...] Date End Date Jigar Patel PA [address] [place] [address] PCP - General 07/24/22 Edi Montoya MD [address] [place] [address] [place] [address] Pulmonary Disease 09/25/23 documented as of this encounter Additional Source Comments The information contained in this document represents components of the legal health record. It is not the complete legal health record.[facility]
--- OUTSIDE RECORDS SUMMARY | 2025-10-04 20:14 | XMS_ITS | Encounter Summary ---
Author Organization [facility] Address [address] [place] [address] Phone Care Team Providers Care Nitrocellulose Operator Name Role Phone Jigar Patel Primary Care Provider + Edi Montoya MD Unavailable [phone] Encounter Details Date Type Department Care Team (Late st Contact Info) Description 10/02/2023 Procedure Pass [facility] Periop [address] [place] [address] Social History Tobacco Use Types Packs/Day Years [...] 10/03/2023 3:00 AM Luisa Don RN * [place] Suicide Severity Rating Scale (Screener/Recent Self-Report) Question [...] documented as of this encounter Care Teams Nitrocellulose Operator Relationship Specialty Start Date End Date Jigar Patel PA [address] [place] [phone] PCP - General 07/24/22 Edi Montoya MD [address] [place] [address] [place] [address] Pulmonary Disease 09/25/23 documented as of this encounter Additional Source Comments The information contained in this document represents components of the legal health record. It is not the complete legal health record.[facility]
--- OUTSIDE RECORDS SUMMARY | 2025-10-04 20:14 | XMS_ITS | Encounter Summary ---
Author Organization [facility] Address [address] [place] [address] Phone Care Team Providers Care Broaching Machine Operator Name Role Phone Jigar Patel Primary Care Provider + Edi Montoya MD Unavailable Encounter Details Date Type Department Care Team (Late st Contact Info) Description 11/19/2023 Procedure Pass [facility] [address] [place] [address] Social History Tobacco Use Types Packs/Day Years [...] on filedocumented in this encounter Care Teams Broaching Machine Operator Relationship Specialty Start Date End Date Jigar Patel PA [address] [place] [address] PCP - General 07/24/22 Edi Montoya MD [address] [place] [address] [place] [address] Pulmonary Disease 09/25/23 documented as of this encounter Additional Source Comments The information contained in this document represents components of the legal health record. It is not the complete legal health record.[facility]
--- OUTSIDE RECORDS SUMMARY | 2025-10-04 20:14 | XMS_ITS | Encounter Summary ---
Author Organization [facility] Address [address] [place] [address] Phone Care Team Providers Care Cloth Designer Name Role Phone Jigar Patel Primary Care Provider + Edi Montoya MD Unavailable Encounter Details Date Type Department Care Team (Late st Contact Info) Description 04/17/2023 Procedure Pass [facility] Periop [address] [place] [address] Social History Tobacco Use Types Packs/Day Years [...] documented as of this encounter Care Teams Cloth Designer Relationship Specialty Start Date End Date Jigar Patel PA [address] [place] [address] PCP - General 07/24/22 Edi Montoya MD [address] [place] [address] [place] [address] Pulmonary Disease 09/25/23 documented as of this encounter Additional Source Comments The information contained in this document represents components of the legal health record. It is not the complete legal health record.[facility]
--- OUTSIDE RECORDS SUMMARY | 2025-10-04 20:14 | XMS_ITS | Clinical Summary ---
Author Organization [facility] [address] [facility] Address [address] [place] [address] Phone Care Team Providers Care Exterior Door Installer Name Role Phone Jigar Patel Primary Care Provider [phone] Allergies Active Allergy Reactions Criticality Noted Date [...] DAY 30 tablet 10/27/20 25 Active pancrelipase, Fph-Rjie-Hlim, (CREON) 24,000-76,000 -120,000 unit capsuleIndications: Pancreatic insufficiency Take 1 capsule (24,000 Units total) by mouth 4 (four) times a day. 360 each 3 09/05/20 25 Active Creon 36,000-114,000- 180,000 unit capsule,delayed release(DR/EC)Indic ations:Pancreatic insufficiency TAKE 2 CAPSULES BY MOUTH 4 (FOUR) TIMES A DAY. 600 capsule 2 09/07/20 25 Active pancrelipase, Iaf-Doyi-Wfqd, (CREON) 24,000-76,000 -120,000 unit capsule Take 1 capsule (24,000 Units total) by mouth 4 (four) times a day. 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 Status post cholecystectomy 06/07/2025 Diarrhea due to malabsorption 06/07/2025 Functional diarrhea 10/26/2024 Ventral hernia 10/22/2024 Intraabdominal fluid collection 10/21/2023 SBO (small bowel obstruction) 10/10/2022 Abdominal pain 08/22/2022 Incisional hernia, without obstruction or gangre ne 05/17/2022 Smoking addiction 10/29/2021 Anxiety disorder 10/29/2021 Incontinence 10/29/2021 Hyponatremia 10/29/2021 Gastric reflux 10/29/2021 Gastroparesis 10/29/2021 Hyperglycemia 10/29/2021 Irritable bowel syndrome 10/29/2021 Parasomnia 10/29/2021 Peristomal dermatitis 10/29/2021 Psychogenic polydipsia 10/29/2021 Tardive dyskinesia 10/29/2021 Asthma 10/29/2021 Atypical migraine 10/29/2021 Ileostomy dysfunction 10/13/2021 Hypothyroidism 03/05/2021 Hypertension 03/05/2021 Chronic narcotic dependence 03/05/2021 Schizoaffective disorder 03/05/2021 Chronic constipation 02/22/2021 COPD (chronic obstructive pulmonary disease) KALE (obstructive [...] 09/30/2025 Telephone Gastroenterology - [address] [facility] [address] [place] [phone] Cordelia Santana MA from Last 3 Months Surgical History Surgery Date Site/Laterality Comments HERNIA REPAIR PROCEDURE: [place] REPAIR FIRST ABDOMINAL WALL HERNIA OTHER SURGICAL [...] Orientation Straight 11/05/2024 8: 51 AM EST Last Filed Vital Signs Vital Sign Reading [...] LAB CHEMISTRY METHOD 02/14/2025 2:19 PM EDT [facility] Blood Venous blood specimen / Unknown Venipuncture / Unknown 02/14/2025 9:42 AM EDT 02/14/2025 10:11 AM EDT us Garrett Shabazz MD LAB BLOOD ORDERABLES Final Resu lt [facility] [address] [place] [address], [place] [phone] * (ABNORMAL) Comprehensive metabolic panel (01/19/2025 10:59 AM EDT) Pathologist [facility] Sodium 128(L) 133 - 145 mmol/L LAB CHEMISTRY METHOD 01/19/2025 2:51 PM T [facility] Potassium 3.4(L) 3.5 - 5.5 mmol/L LAB CHEMISTRY METHOD 01/19/2025 2:51 PM [facility] Chloride 91(L) 96 - 110 mmol/L LAB CHEMISTRY METHOD 01/19/2025 2:51 PM [facility] CO2 33(H) 21 - 32 mmol/L LAB CHEMISTRY METHOD 01/19/2025 2:51 PM [facility] Anion Gap 4 3 - 11 LAB CHEMISTRY METHOD 01/19/2025 2:51 PM [facility] Glucose 78 70 - 100 mg/dL LAB CHEMISTRY METHOD 01/19/2025 2:51 PM [facility] BUN 3(L) 5 - 25 mg/dL LAB CHEMISTRY METHOD 01/19/2025 2:51 PM [facility] Creatinine 0.60 0.50 - 1.10 mg/dL LAB CHEMISTRY METHOD 01/19/2025 2:51 PM [facility] eGFR 102 >=60 mL/min/1. 73m2 LAB CHEMISTRY METHOD 01/19/2025 2:51 PM [facility] Comment:Calculation based on the Chronic Kidney Disease Epidemiology Collaboration (CKD-EPI) equation refit without adjustment for race. BUN/Creatinine Ratio 5.0 LAB CHEMISTRY METHOD 01/19/2025 2:51 PM EDT [facility] Calcium 9.0 8.5 - 10.5 mg/dL LAB CHEMISTRY METHOD 01/19/2025 2:51 PM EDT [facility] AST (SGOT) 18 10 - 42 unit/L LAB CHEMISTRY METHOD 01/19/2025 2:51 PM T [facility] ALT (SGPT) 25 10 - 60 unit/L LAB CHEMISTRY METHOD 01/19/2025 2:51 PM EDT [facility] Alkaline Phosphatase 133(H) 42 - 121 unit/L LAB CHEMISTRY METHOD 01/19/2025 2:51 PM EDT [facility] Total Protein 6.7 6.0 - 8.0 g/dL LAB CHEMISTRY METHOD 01/19/2025 2:51 PM T [facility] Albumin 3.7 3.2 - 5.0 g/dL LAB CHEMISTRY METHOD 01/19/2025 2:51 PM T [facility] Total Bilirubin 0.5 0.0 - 1.4 mg/dL LAB CHEMISTRY METHOD 01/19/2025 2:51 PM EDT [facility] Blood Venous blood specimen / Unknown Venipuncture / Unknown 01/19/2025 10:59 AM EDT 01/19/2025 11:33 AM EDT Garrett Shabazz MD LAB BLOOD ORDERABLES Final Resu lt [facility] [address] [place] [address], * COLONOSCOPY Anesthesia - [facility]; [facility] END[facility]COPY (11/08/2024 8:55 AM EST) [...] pathology results. Narrative 11/08/2024 8:59 AM EST [facility] Patient Name: Kain Dumont Procedure [...] for histology. Procedure Code(s): --- Professional --- 93890, Colonoscopy, flexible; with biopsy, single or multiple CPT copyright 2020 [employer]. All rights reserved. The codes documented in this report are preliminary and upon him coder review may be revised to meet current compliance requirements. MD Garrett Do MD 11/08/2024 8:59:29 AM This report has been signed electronically.Garrett Shabazz MD Number of Addenda: 0 Note Initiated On: 11/08/2024 8:40 AM Scope In: Scope Out: Endoscopy Department at [facility] - [address] [place] [phone] Procedure Note Garrett Shabazz MD - 11/08/2024 [facility] Patient Name: Kain Dumont Procedure [...] Findings: There was evidence of a prior kir-dq-wzngvwh-colonic anastomosis in the sigmoid colon. This was patentand was characterized by healthy appearing mucosa. The anastomosis was traversed. The exam was otherwise without abnormality ondirect and retroflexion views. Clara-anal excoriationsnoted. Biopsies were taken with a cold forceps in therectum, in the sigmoid colon and in the distal ileum for histology. Procedure Code(s): --- Professional --- 16454, Colonoscopy, flexible; with biopsy, singleor multiple CPT copyright 2020 [employer]. All rights reserved. The codes documented in this report are preliminary and upon him coder reviewmay be revised to meet current compliance requirements. MD Garrett Do MD 11/08/2024 8:59:29 AM This report has been signed electronically.Garrett Shabazz MD Number of Addenda: 0 Note Initiated On: 11/08/2024 8:40 AM Scope In: Scope Out: Endoscopy Department at [facility] - [address] [place] [phone] IMPRESSION: - Patent end-to-end ileo-colonic anastomosis, characterized [...] Most Recently Relevant to Health Maintenance Insurance [employer] [id number] [facility] MEDICARE Member Subscriber Plan / Payer (Ef fective 2019-Present) Name:KAIN DUMONT Relation to Subscriber:Self Name:Kain Dumont Payer ID:[id number] Group ID:[id number] Type:Not on file Address: [address] [id number] Advance Directives Documents on File Type Date Recorded Patient Recovery Auditor Expl anation Health Care Decision (hx) 11/03/2022 [...] currently active code status orders. Care Teams Exterior Door Installer Relationship Specialty Start Date End Date Jigar Patel PA [address] [place] [phone] PCP - General 02/26/23
--- OUTSIDE RECORDS SUMMARY | 2025-10-04 20:14 | XMS_ITS | Encounter Summary ---
Author Organization [facility] Address [address] [place] [address] Care Team Providers Care Switch House Operator Name Role Phone Jigar Patel Primary Care Provider Encounter Details Date Type Department Care Team (Late st Contact Info) Description 09/30/2025 Telephone Gastroenterology - [address] [place] [phone] Cordelia Santana MA Social History Tobacco Use [...] has lost ~40 lbs. She goes to [facility] for care and sees Dr Fanny Ferris. She has been diagnosed with AFIB. Bottom line she can't have the Sandostatin injection until hernia surgery is done. She is having ~20 bm a day but she is keeping her self hydrated so she is doing okay. Sometimes she passes out so she is looking forward to resume the Sandostatin injections soon. She will have BUS REPAIR SUPERVISOR bring her to get the bag for her Sandostatin medication we are providing her to help with the travel of the med. documented in this encounter Plan of Treatment Not on file documented as of this encounter Visit Diagnoses Not on filedocumented in this encounter Care Teams Switch House Operator Relationship Specialty [place] [address] [place] [phone] PCP - General 02/26/23 documented as of this encounter
--- OUTSIDE RECORDS SUMMARY | 2025-10-04 20:14 | XMS_ITS | Encounter Summary ---
Author Organization [facility] Address [address] [place] [address] Phone Care Team Providers Care Nanny/Household Manager Name Role Phone Jigar Patel Primary Care Provider + Edi Montoya MD Unavailable Encounter Details Date Type Department Care Team (Late st Contact Info) Description 04/17/2023 Procedure Pass [facility] Periop [address] [place] [address] Social History Tobacco Use Types Packs/Day Years [...] documented as of this encounter Care Teams Nanny/Household Manager Relationship Specialty Start Date End Date Jigar Patel PA [address] [place] [address] PCP - General 07/24/22 Edi Montoya MD [address] [place] [address] [place] [address] Pulmonary Disease 09/25/23 documented as of this encounter Additional Source Comments The information contained in this document represents components of the legal health record. It is not the complete legal health record.[facility]
== END 2025-10-04 14:17 | disposition home or self-care (01) ==
LOC: HO.HOP 14:14
PROVIDERS: PCP Physician Assistant; Visit Provider Clinical Nurse Specialist Psychiatric/Mental Health
DX: F43.12 Post-traumatic stress disorder, chronic (principal); F41.1 Generalized anxiety disorder; F41.0 Panic disorder [episodic paroxysmal anxiety]; F60.3 Borderline personality disorder; F33.9 Major depressive disorder, recurrent, unspecified
CPT/HCPCS: 99214

== ENCOUNTER → 2025-10-04 14:14 | Outpatient (BNVA) | payer OTHER, SELFPAY | PROVIDERS: PCP Physician Assistant; Visit Provider Clinical Nurse Specialist Psychiatric/Mental Health | DX: F43.12 Post-traumatic stress disorder, chronic (principal); F41.0 Panic disorder [episodic paroxysmal anxiety]; F60.3 Borderline personality disorder; F33.9 Major depressive disorder, recurrent, unspecified; R19.7 Diarrhea, unspecified; Z79.899 Other long term (current) drug therapy | CPT/HCPCS: 99212 ==

== ENCOUNTER 2025-10-13 15:30 | Outpatient (AMB) | payer OTHER, SELFPAY ==
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
--- OUTSIDE RECORDS SUMMARY | 2025-10-13 19:25 | XMS_ITS | Encounter Summary ---
Author Organization [facility] Address [address] [place] [address] Phone Care Team Providers Care Scientific Software Engineer Name Role Phone Jigar Patel Primary Care Provider + Edi Montoya MD Unavailable Encounter Details Date Type Department Care Team (Late st Contact Info) Description 11/25/2023 Procedure Pass [facility] [place] [address] [place] [address] Social History Tobacco Use Types Packs/Day Years [...] on filedocumented in this encounter Care Teams Scientific Software Engineer Relationship Specialty Start Date End Date Jigar Patel PA [address] [place] [id number] PCP - General 07/24/22 Edi Montoya MD [address] [place] [address] [place] [address] Pulmonary Disease 09/25/23 documented as of this encounter Additional Source Comments The information contained in this document represents components of the legal health record. It is not the complete legal health record.[facility]
--- OUTSIDE RECORDS SUMMARY | 2025-10-13 19:25 | XMS_ITS | Continuity of Care Document ---
Author Organization [place] [facility] [place] [facility], [facility] Address [address] [place] [id number] Care Team Providers Care Personnel Arbitrator Name Role Phone HIM CCA OTHER Assessment No assessment recorded. Plan of Treatment Reminders Order Date Submit Date Provider Last Modified By Organization Details Last Modified Time Details Appointments None recorded. Lab None recorded. Referral None recorded. Procedures None recorded. Surgeries None recorded. Imaging None recorded. Medication Orders cephalexin 500 mg capsule 2024 025 [facility], [address] [place] [address], [id number], 5 05:01:25 cephalexin 500 mg capsule 2024 025 [id number], [address] [place], [id number], 5 05:01:25 acetaminoph en 500 mg tablet 2024 025 [facility], [address] [place] [address], [id number], 5 05:02:09 acetaminoph en 500 mg tablet 2024 025 [id number], [address] [place], [id number], 5 05:02:09 Patient TargetsNo targets recorded. Patient InstructionsNo instructions recorded. Reason for Referral None Reported. Medical Equipment None Reported. Allergies Allergen ID Allergen Name Allergen Category Reaction Reaction Severity Criticality Documentation Date Start Date Code Code System Note Provider Name and Address Organization Details Recorded Time 17113 doxycycli ne Not available Not available Not available Not available 08/26/2025 3640 RxNorm Not Available [facility] - production 17:00:57 42629 Non-stero idal anti-infl ammatory agent (substanc e) medicatio n Not available Not available Not available 08/26/2025 48938 5008 SNOMED Not Available [facility] - production 17:00:57 84062 codeine medicatio n nausea Not available Not available 08/26/20252011 2670 RxNorm Rash unrec ogniz ed react ion (text : GI intol eranc e, code: 56830 5008) (from exter nal sourc e) PAL CAGLE MD [address] [place] [address],[address], [place], [address], [employer] 18:02:33 18459 dexametha sone medicatio n Not available Not available Not available 08/26/2025 3264 RxNorm Not Available issa - External Data Service - prod 17:52:06 45435 doxycycli ne hyclate medicatio n Not available Not available Not available 08/26/20252021 33048 RxNorm unrec ogniz ed react ion (text : Nause a and/o r Vomit ing, code: 63777 000) (from exter nal sourc e) Not Available issa - External Data Service - prod 17:52:15 42019 Bactrim medicatio n abdominal pain Not available Not available 08/26/2025 22780 9 RxNorm PAL CAGLE MD [address] [place] [address],[address], [place], [address], [employer] 18:04:26 8461 Product containin g penicilli n (product) medicatio n vomiting Not available Not available 08/24/20242011 91292 8001 SNOMED PAL CAGLE MD [address] [place] [address],[address], [place], [address], [employer] 18:02:56 8462 aspirin medicatio n Not available Not available Not available 08/24/2024 1191 RxNorm Not Available [facility] - production 4 03:44:27 Medications Name Sig Start Date Stop Date Status Note LastModified by Organization Details LastModified Time multivitami n tablet active Not Available Not Available Not [...] active Not Available Not Available Not Available fluconazole 150 mg tablet active Not Available Not Available Not Available ondansetron HCl 8 mg tablet active Not Available Not Available Not Available sucralfate 1 gram tablet active Not Available Not Available Not Available lisinopril 20 mg tablet active Not Available Not Available Not Available risperidone 0.25 mg tablet active Not Available Not Available Not Available omeprazole 40 mg capsule,del ayed release active Not Available Not Available Not Available tramadol 50 mg tablet active Not Available Not Available No t Available acetaminoph en 500 mg tablet Take 2 tablets every 8 hours by oral route as needed for 10 days. 09/12 completed Not Available Not Available Not Available acetaminoph en ER 650 mg tablet,exte nded release active Not Available Not Available Not Available Mi-Acid Gas Relief (simethicon e) 80 mg chewable tablet active Not Available Not Available Not Available prazosin 5 mg capsule active Not Available Not Available N ot Available oxycodone-a cetaminophe n 5 mg-325 mg tablet active Not Available Not Available No t Available calcium 600 mg (as calcium carbonate 1,500 mg) tablet active Not Available Not Available Not Available hydromorpho ne 2 mg tablet active Not Available Not Available Not Available potassium chloride ER 20 mEq tablet,exte nded release(par t/cryst) active Not Available Not Available Not Available nicotine (polacrilex ) 4 mg gum CHEW 1 GUM FOR 30 MINUTES NEEDED UP TO 15 TIMES DAILY active Not Available Not Available No t Available levothyroxi ne 50 mcg tablet active Not Available Not Available Not Available cephalexin 500 mg capsule Take 1 capsule every 6 hours by oral route for 5 days. 09/07 completed Not Available Not Available Not Available esomeprazol e magnesium 40 mg capsule,del ayed release active Not Available Not Available Not Available triamcinolo ne acetonide 0.1 % topical ointment active Not Available Not Available Not Available clotrimazol e-betametha sone 1 %-0.05 % topical cream active Not Available Not Available Not Available lisinopril 30 mg tablet active Not Available Not Available Not Available Gas Relief Extra Strength 125 mg capsule active Not Available Not Available Not Available folic acid 1 mg tablet active Not Available Not Available Not Available hydrocortis one 2.5 % topical cream active Not Available Not Available Not Available hydroxyzine HCl 25 mg tablet active Not Available Not Available Not Available mupirocin 2 % topical ointment active Not Available Not Available Not Available furosemide 20 mg tablet active Not Available Not Available Not Available diazepam 10 mg tablet active Not Available Not Available No t Available hydromorpho ne 4 mg tablet active Not Available Not Available Not Available Vitamin B-1 100 mg tablet active Not Available Not Available Not Available betamethaso ne dipropionat e 0.05 % topical ointment APPLY TO LARGE AREA FOUR TIMES DAILY X 30 DAYS active Not Available Not Available No t Available ondansetron 4 mg disintegrat ing tablet active Not Available Not Available N ot Available metronidazo le 0.75 % topical gel active Not Available Not Available Not Available lamotrigine 100 mg tablet active Not Available Not Available Not Available risperidone 0.5 mg tablet active Not Available Not Available Not Available prazosin 2 mg capsule active Not Available Not Available N ot Available Ventolin HFA 90 mcg/actuati on aerosol inhaler active Not Available Not Available Not Available esomeprazol e magnesium 20 mg capsule,del ayed release active Not Available Not Available Not Available oxycodone 5 mg tablet TAKE 1 TABLET BY MOUTH EVERY 6 HOURS NEEDED FOR SEVERE PAIN active Not Available Not Available No t Available 3-Day Vaginal 2 % cream active Not Available Not Available Not Available duloxetine 20 mg capsule,del ayed release active Not Available Not Available Not Available duloxetine 30 mg capsule,del ayed release active Not Available Not Available Not Available Gas Relief Extra Strength 125 mg chewable tablet active Not Available Not Available Not Available quetiapine ER 400 mg tablet,exte nded release 24 hr active Not Available Not Available Not Available FeroSul 325 mg (65 mg iron) tablet active Not Available Not Available Not Available oxycodone 10 mg tablet active Not Available Not Available Not Available diclofenac 1 % topical gel active Not Available Not Available Not Available cholecalcif geovanny (vitamin D3) 50 mcg (2,000 unit) capsule active Not Available Not Available Not Available Culturelle 15 billion cell sprinkle capsule active Not Available Not Available Not Available Moisture Barrier Ointment 0.44 %-20.6 % Medline remedy essential s barrier ointment active Not Available Not Available No t Available Belbuca 750 mcg buccal film active Not Available Not Available Not Available Belbuca 900 mcg buccal film active Not Available Not Available Not Available naloxone 4 mg/actuatio n nasal spray active Not Available Not Available [...] Recorded Respiratory rate Body weight Oxygen saturation Body height Heart rate Body temperature Systolic And Diastolic Systolic And Diastolic Provider Name and Address Organization Details Last Updated DateTime 5 18 /min 16801.5 2 g 97 % 162.56 cm 108 /min 99.2 [degF] 180/100 mm[Hg] 160/100 mm[Hg] Not Available [facility] - production 5 18:16:27 Social History None recorded. Functional Status None recorded. Mental Status None recorded. Family History Nothing Reported. Medical History No medical history recorded. Gynecological HistoryNo gynecological history recorded. Obstetrics History GPAL:G 0 P 0 0 0 0 Past Encounters Encounter ID Performer Location Encounter Start Date Encounter Closed Date Diagnosis/Indication Diagnosis SNOMED-CT Code Diagnosis ICD10 Code Diagnosis IMO Codes Diagnosis Note [id number] PAL CAGLE MD Main-inst ED Medical [facility] [address] [place] [address] 08/26/2025 17:51:35 08/26/2025 18:56:46 Disorder of right upper extremity 5612890981 17017 R22.31 [id number] Evaluation in the field was performed by my it security engineer colleague, as noted above, I provided real-time direction and supervisio n for this visit. The evaluation revealed 65-year-ol d female with a history of COPD/asthm a, congestive heart failure, and cancer presenting with right forearm redness, swelling, and pain. The patient was discharged today from [facility], where she was admitted for hernia and fall. She is on apixaban but was maintained on IV heparin during hospitaliz ation. The patient reports that two IVs were placed in the right arm, one in the hand. She now notes redness and swelling extending up the arm to the elbow, with small pimple-lik e bumps and prior minor bleeding from the site, which has since stopped. She reports mild discomfort but denies fever or chills. She feels generally weak. Vital Signs: BP 180/100 , Pulse 108 , Resp 18, Temp 99.2 F, SpO2 97% on room airExam:AA O 3, mildly anxious.Ingrid ngs clear to auscultati on bilaterall y.Right upper extremity with diffuse erythema and swelling over the posterior elbow and proximal forearm, with ecchymosis and central dark discolorat ion near the lateral aspect of the elbow. Surroundin g skin is warm with mild induration and several small erythemato us papules in the affected region. Distal forearm and hand without visible swelling or cyanosis.A llergies reviewed. Impression :Right forearm cellulitis vs superficia l thrombophl ebitis (less likely DVT given ongoing apixaban therapy).E levated BP Plan:Area outlined by it security engineer for monitoring progressio n.Keflex initiated (first dose given by it security engineer) ; 1 capsule QID 5 days.Patihanna nt reports prior tolerance to Keflex.All ergic to doxycyclin e and reports severe GI upset with Bactrim.Ty lenol 1 g every 8 hours PRN for pain.Warm compresses to affected area 2 3 times daily to aid resolution if superficia l thrombophl ebitis.Con tinue apixaban and antihypert ensive medication s.Red flags discussed including : rapidly spreading redness, fever or chills, increased pain or swelling, drainage or purulent discharge, or new numbness or coolness of the hand [facility] or ED evaluation if any occur. Primary care, consider__ _ Dispositio n: We discussed the diagnostic uncertaint y of home visits and the risk associated with this. In this case, the patient and I felt this to be an acceptable and reasonable amount of risk given the benefit of avoiding an ED visit. We discussed the need to seek care urgently/e mergently in the setting of any new or worsening serious symptoms, particular ly rapidly spreading redness, fever or chills, increased pain or swelling, drainage or purulent discharge, or new numbness or coolness of the hand. Health Concerns Section Related Observation LastModified by Organization Detai ls LastModified Time None Recorded Concern Status LastModified by Organization Details LastModified Time None Recorded Payers Encounter Date Sequence Insurance Name Policy Number Policy Mcguire Covered Member ID Mcguire Member ID Guarantor Name 08/26/2025 [address] [facility] - DOS ON OR AFTER 2023 - DUAL ELIGIBLE - GROUP HOME OPTIONS AND ONE CARE (MEDICARE REPLACEMENT/ADV ANTAGE - HMO) Yu Morgan [id number] Yu Morgan Notes Date Note Type Note Provider Name and Address Organization Details Recorded Time 08/26/2025 text/html ROS as noted in the [facility] Nurse Triage Notes (Paradise Santizo): Reason For Request: Pt recently discharged from the hospital due severe hernias + a fall>notes she was discharged with her right arm, pain, swollen and red Denies: Higginbotham Flash, circumferential higginbotham Higginbotham reported with black tissue to the area Open skin area after a fall with uncontrolled bleeding Abscess/infection with streaking noted, presence of fever or without Chief Complaints: Extremity Pain PMH: COPD/Asthma, Congestive Heart Failure, Cancer PMH Reviewed at 08/26/2025 - 17:00 Allergies Reviewed at 08/26/2025 - 17:00 Comments: 65 y.o female complains of Extremity Pain Discharged from hospital today. Patient was admitted for [...] weak. Not put on any new medications. I provided information on the mobile health provider response time and advised the patient and/or caregiver to monitor reported signs and symptoms. I discussed the warning signs of when to seek emergency care. ..................... ..................... ..................... ..................... ..................... ..................... ............... Master Craftsman Note From Kobi Erickson: [facility] responds to the listed address for a 65 yof w/ a c/c of UE redness and pain. Upon arrival on scene, pt is standing at the open door to her apartment wearing a bathrobe and invites [facility] inside. She is generally well-appearing w/ p/w/d skin and NAD. She sits in the recliner in her living room for evaluation. She tells [facility] she was discharged this afternoon from the [...] and consents to evaluation and treatment today. [facility] captures pt consent signature. Vital signs are gathered and pt is assessed. Pt is hypertensive w/ a very low-grade fever and is not hypoxic. Head is atraumatic and normocephalic. Sclera are clear and extraocular movements are intact. Chest rises and [...] and no numbness or tingling are present. [facility] contacts [facility] and discusses the above. [facility] confirms pt allergies and orders [facility] to outline the area of redness on the forearm so pt can monitor the area. [facility] then orders 500mg cephalexin PO for pt and calls in 5-day course to pt's pharmacy. [facility] requests a recheck of pt's bp and instructs pt to apply warn compresses and to monitor the area and if the redness begins to grow outside the borders drawn w/ the marker or if she gets worse in any way, she needs to return to the ED for stronger abx. [facility] administers 500mg x1 tablet PO to pt and outlines the borders of the red area on the forearm. [facility] also instruct pt to apply warm compresses. BP is reassessed and remains high. Pt feels her elevated pressure and SAMSON are due to her fatigue and not feeling well. [facility] is informed and [facility] orders 1G Tylenol PO for pt. [facility] administers 500mg x2 tablets Tylenol PO to pt and instructs her to return to the ED if she sees no improvement in the forearm by Friday nigh/Friday morning at the latest. Pt thanks [facility] for coming. [facility] is clear. Report completed by ATIF Erickson [id number]. [facility] Medication Orders: cephalexin 500 mg capsule: Administered acetaminophen 500 mg tablet: Administered ..................... ..................... ..................... ..................... ..................... ..................... ............... [facility] Consulted: Pal Cagle ..................... ..................... ..................... ..................... ..................... ..................... ............... Disposition: Fulfilled PAL CAGLE MD [address] [place] [address],[address], [place], [address], [facility] [place], [facility] 08/26/2025 18:53:11 OBGyn Episode No OBEpisode recorded.
--- OUTSIDE RECORDS SUMMARY | 2025-10-13 19:25 | XMS_ITS | Encounter Summary ---
Author Organization [facility] Address [address] [place] [address] Phone Care Team Providers Care Technical Report Writer Name Role Phone Jigar Patel Primary Care Provider + Edi Montoya MD Unavailable Encounter Details Date Type Department Care Team (Late st Contact Info) Description 01/20/2023 Procedure Pass [facility] Periop [address] [place] [address] Social History Tobacco Use Types Packs/Day Years [...] documented as of this encounter Care Teams Technical Report Writer Relationship Specialty Start Date End Date Jigar Patel PA [address] [place] [address] PCP - General 07/24/22 Edi Montoya MD [address] [place] [address] [place] [address] Pulmonary Disease 09/25/23 documented as of this encounter Additional Source Comments The information contained in this document represents components of the legal health record. It is not the complete legal health record.[facility]
--- OUTSIDE RECORDS SUMMARY | 2025-10-13 19:25 | XMS_ITS | Encounter Summary ---
Author Organization [facility] Address [address] [place] [address] Phone Care Team Providers Care County Auditor Name Role Phone Jigar Patel Primary Care Provider + Edi Montoya MD Unavailable Encounter Details Date Type Department Care Team (Late st Contact Info) Description 01/20/[address] [facility] Periop [address] [place] [address] Social History Tobacco Use Types Packs/Day Years [...] documented as of this encounter Care Teams County Auditor Relationship Specialty Start Date End Date Jigar Patel PA [address] [place] [address] PCP - General 07/24/22 Edi Montoya MD [address] [place] [address] [place] [address] Pulmonary Disease 09/25/23 documented as of this encounter Additional Source Comments The information contained in this document represents components of the legal health record. It is not the complete legal health record.[facility]
--- OUTSIDE RECORDS SUMMARY | 2025-10-13 19:25 | XMS_ITS | Encounter Summary ---
Author Organization [facility] Address [address] [place] [address] Phone Care Team Providers Care Supervisor Lamp Shades Name Role Phone Jigar Patel Primary Care Provider + Edi Montoya MD Unavailable [phone] Encounter Details Date Type Department Care Team (Late st Contact Info) Description 10/22/2023 Procedure Pass [facility] Cross Sectional Interventional Radiology [address] [place] [address] Social History Tobacco Use Types Packs/Day Years [...] as of this encounter Care Teams Supervisor Lamp Shades Relationship Specialty Start Date End Date Jigar Patel PA [address] [place] [address] PCP - General 07/24/22 Edi Montoya MD [address] [place] [address] [place] [address] Pulmonary Disease 09/25/23 documented as of this encounter Additional Source Comments The information contained in this document represents components of the legal health record. It is not the complete legal health record.[facility]
--- OUTSIDE RECORDS SUMMARY | 2025-10-13 19:26 | XMS_ITS | Encounter Summary ---
Author Organization [facility] Address [address] [place] [address] Phone Care Team Providers Care Building Materials Sales Attendant Name Role Phone Jigar Patel Primary Care Provider + Edi Montoya MD Unavailable Encounter Details Date Type Department Care Team (Late st Contact Info) Description 08/21/2022 Procedure Pass [facility] [address] [place] [address] Social History Tobacco Use Types Packs/Day Years [...] 12:15 PM EDT Natalie Calloway RN * [place] Suicide Severity Rating Scale (Screener/Recent Self-Report) Question [...] as of this encounter Care Teams Building Materials Sales Attendant Relationship Specialty Start Date End Date Jigar Patel PA [address] [place] [address] PCP - General 07/24/22 Edi Montoya MD [address] [place] [address] [place] [address] Pulmonary Disease 09/25/23 documented as of this encounter Additional Source Comments The information contained in this document represents components of the legal health record. It is not the complete legal health record.[facility]
--- OUTSIDE RECORDS SUMMARY | 2025-10-13 19:26 | XMS_ITS | Encounter Summary ---
Author Organization [facility] Address [address] [place] [address] Phone Care Team Providers Care Practice Architect Name Role Phone Jigar Patel Primary Care Provider + Edi Montoya MD Unavailable Encounter Details Date Type Department Care Team (Late st Contact Info) Description 10/10/2022 Procedure Pass [facility] [address] [place] [address] Social History Tobacco Use Types Packs/Day Years [...] 5:20 PM EST Callie Meza, RN * [place] Suicide Severity Rating Scale (Screener/Recent Self-Report) Question [...] documented as of this encounter Care Teams Practice Architect Relationship Specialty Start Date End Date Jigar Patel PA [address] [place] [address] PCP - General 07/24/22 Edi Montoya MD [address] [place] [address] [place] [address] Pulmonary Disease 09/25/23 documented as of this encounter Additional Source Comments The information contained in this document represents components of the legal health record. It is not the complete legal health record.[facility]
--- OUTSIDE RECORDS SUMMARY | 2025-10-13 19:26 | XMS_ITS | Encounter Summary ---
Author Organization [facility] Address [address] [place] [address] Phone Care Team Providers Care Sales Route Driver Name Role Phone Jigar Patel Primary Care Provider + Edi Montoya MD Unavailable Encounter Details Date Type Department Care Team (Late st Contact Info) Description 09/25/2023 Procedure Pass [facility] [address] [place] [address] Social History Tobacco Use Types Packs/Day Years [...] documented as of this encounter Care Teams Sales Route Driver Relationship Specialty Start Date End Date Jigar Patel PA [address] [place] [address] PCP - General 07/24/22 Edi Montoya MD [address] [place] [address] [place] [address] Pulmonary Disease 09/25/23 documented as of this encounter Additional Source Comments The information contained in this document represents components of the legal health record. It is not the complete legal health record.[facility]
--- OUTSIDE RECORDS SUMMARY | 2025-10-13 19:26 | XMS_ITS | Encounter Summary ---
Author Organization [facility] Address [address] [place] [address] Phone Care Team Providers Care Skin Care Instructor Name Role Phone Jigar Patel Primary Care Provider + Edi Montoya MD Unavailable [phone] Encounter Details Date Type Department Care Team (Late st Contact Info) Description 11/19/2023 Procedure Pass [facility] [address] [place] [address] Social History Tobacco Use Types Packs/Day Years [...] on filedocumented in this encounter Care Teams Skin Care Instructor Relationship Specialty Start Date End Date Jigar Patel PA [address] [place] [address] PCP - General 07/24/22 Edi Montoya MD [address] [place] [address] [place] [address] Pulmonary Disease 09/25/23 documented as of this encounter Additional Source Comments The information contained in this document represents components of the legal health record. It is not the complete legal health record.[facility]
--- OUTSIDE RECORDS SUMMARY | 2025-10-13 19:26 | XMS_ITS | Clinical Summary ---
Author Organization [facility] Address [address] [place] [address] Phone Care Team Providers Care Bobbin Fixer Name Role Phone Jigar Patel Primary Care [...] meal 90 packet 01/20/20 25 026 Active Additional Information Patient [...] 026 Active pantoprazole (PROTONIX) 40 mg EC tabletIndications:Ga stroesophageal reflux disease, unspecified whether esophagitis present TAKE 1 TABLET BY MOUTH ONCE A DAY 30 tablet 08/22/20 25 Active pancrelipase, Rsr-Fkzz-Yekc, (CREON) 24,000-76,000 -120,000 unit capsuleIndications:P ancreatic insufficiency Take 1 capsule (24,000 Units total) by mouth 4 (four) times a day. 360 each 3 09/05/20 25 Active Creon 36,000-114,000- 180,000 unit capsule,delayed release(DR/EC)Indica tions:Pancreatic insufficiency TAKE 2 CAPSULES BY MOUTH 4 (FOUR) TIMES A DAY. 600 capsule 2 09/07/20 25 Active Hospital, Clinic, or Other Facility Administered [...] [address] [place] [address] Cordelia Santana MA from Last 3 Months Surgical History Surgery Date Site/Laterality Comments HERNIA REPAIR PROCEDURE: ME REPAIR FIRST ABDOMINAL WALL HERNIA OTHER SURGICAL [...] Last Done Comments Breast Cancer Screening 1960 Drug Screen 1960 Non-Opioid Controlled Substance Agreement 1962 Hepatitis A Vaccines (1 of 2 [...] LAB CHEMISTRY METHOD 02/14/2025 2:19 PM EDT [facility] Blood Venous blood specimen / Unknown Venipuncture / Unknown 02/14/2025 9:42 AM EDT 02/14/2025 10:11 AM EDT Garrett Shabazz MD LAB BLOOD ORDERABLES Final Resu lt [facility] [address] [place] [address], * (ABNORMAL) Comprehensive metabolic panel (01/19/2025 10:59 AM EDT) Sodium 128(L) 133 - 145 mmol/L LAB CHEMISTRY METHOD 01/19/2025 2:51 PM EDT [facility] Potassium 3.4(L) 3.5 - 5.5 mmol/L LAB CHEMISTRY METHOD 01/19/2025 2:51 PM EDT [facility] Chloride 91(L) 96 - 110 mmol/L LAB CHEMISTRY METHOD 01/19/2025 2:51 PM [facility] CO2 33(H) 21 - 32 mmol/L LAB CHEMISTRY METHOD 01/19/2025 2:51 PM [facility] Anion Gap 4 3 - 11 LAB CHEMISTRY METHOD 01/19/2025 2:51 PM [facility] Glucose 78 70 - 100 mg/dL LAB CHEMISTRY METHOD 01/19/2025 2:51 PM [facility] BUN 3(L) 5 - 25 mg/dL LAB CHEMISTRY METHOD 01/19/2025 2:51 PM [facility] Creatinine 0.60 0.50 - 1.10 mg/dL LAB CHEMISTRY METHOD [facility] e[facility] 102 >=60 mL/min/1. 73m2 LAB CHEMISTRY METHOD 01/19/2025 2:51 PM [facility] Comment:Calculation based on the Chronic Kidney Disease Epidemiology Collaboration (CKD-EPI) equation refit without adjustment for race. BUN/Creatinine Ratio 5.0 LAB CHEMISTRY METHOD 01/19/2025 2:51 PM [facility] Calcium 9.0 8.5 - 10.5 [...] Resu lt [facility] [address] [place] [address], * COLONOSCOPY Anesthesia - [facility]; [facility] ENDOSCOPY (11/08/2024 8:55 AM EST) Anatomical Region [...] results. Narrative 11/08/2024 8:59 AM EST [facility] GI Patient Name: Kain Dumont [...] for histology. Procedure Code(s): --- Professional --- 93755, Colonoscopy, flexible; with biopsy, single or multiple CPT copyright 2020 [employer]. All rights reserved. The codes documented in this report are preliminary and upon instrumentation and controls technician review may be revised to meet current compliance requirements. MD Garrett Do MD 11/08/2024 8:59:29 AM This report has been signed electronically.Garrett Shabazz MD Number of Addenda: 0 Note Initiated On: 11/08/2024 8:40 AM Scope In: Scope Out: Endoscopy Department at [address] [address] Procedure Note Garrett Shabazz MD - 11/08/2024 [facility] GI Patient Name: Kain Dumont [...] Findings: There was evidence of a prior wpt-gl-refeycq-colonic anastomosis in the sigmoid colon. This was patentand was characterized by healthy appearing mucosa. The anastomosis was traversed. The exam was otherwise without abnormality ondirect and retroflexion views. Clara-anal excoriationsnoted. Biopsies were taken with a cold forceps in therectum, in the sigmoid colon and in the distal ileum for histology. Procedure Code(s): --- Professional --- 12081, Colonoscopy, flexible; with biopsy, singleor multiple CPT copyright 2020 [employer]. All rights reserved. The codes documented in this report are preliminary and upon instrumentation and controls technician reviewmay be revised to meet current compliance requirements. MD Garrett Do MD 11/08/2024 8:59:29 AM This report has been signed electronically.Garrett Shabazz MD Number of Addenda: 0 Note Initiated On: 11/08/2024 8:40 AM Scope In: Scope Out: Endoscopy Department at [facility] - [address] [place] [phone] IMPRESSION: - Patent end-to-end ileo-colonic anastomosis, characterized [...] bstracted Blood Venous blood specimen / Unknown [facility] Provider LAB BLOOD ORDERABLES Mignon l Result from Last 3 Months or Most Recently Relevant to Health Maintenance Insurance [employer] [id number] [facility] MEDIC[facility] Member Subscriber Plan / Payer (Ef fective 2019-Present) Name:KAIN DUMONT Relation to Subscriber:Self Name:Kain Dumont Payer ID:[id number] Group ID:[id number] Type:Not on file Address: [facility] [address] [phone] Advance Directives Documents on File Type Date Recorded Patient Physical Education Department Chair Expl anation Health Care Decision (hx) 11/03/2022 [...] currently active code status orders. Care Teams Bobbin Fixer Relationship Specialty Start Date End Date Jigar Patel PA [address] [place] [phone] PCP - General 02/26/23
--- OUTSIDE RECORDS SUMMARY | 2025-10-13 19:26 | XMS_ITS | Encounter Summary ---
Author Organization [facility] Address [address] [place] [address] Phone Care Team Providers Care Clerical Car Checker Name Role Phone Jigar Patel Primary Care Provider + Edi Montoya MD Unavailable Encounter Details Date Type Department Care Team (Late st Contact Info) Description 04/17/2023 Procedure Pass [facility] Periop [address] [place] [address] Social History Tobacco Use Types Packs/Day Years [...] documented as of this encounter Care Teams Clerical Car Checker Relationship Specialty Start Date End Date Jigar Patel PA [address] [place] [address] PCP - General 07/24/22 Edi Montoya MD [address] [place] [address] [place] [address] Pulmonary Disease 09/25/23 documented as of this encounter Additional Source Comments The information contained in this document represents components of the legal health record. It is not the complete legal health record.[facility]
--- OUTSIDE RECORDS SUMMARY | 2025-10-13 19:26 | XMS_ITS | Clinical Summary ---
Author Organization [facility] Address [address] [facility] [address] [place] [address] Phone Care Team Providers Care Law Office Manager Name Role Phone Jigar Patel Primary [...] this topic Medical Devices Implanted Type Area Master Ocean Yacht Device Identifier Shelf Expiration Date Model / Serial / Lot Mesh Surgical [id number] Ph[employer] St Pocketed Bioresorbable Open Positioning System Oval - [id number] Implanted:Qty: 1 on 10/02/2023 by Chintan Figueroa MD at [facility] N/A: Abdomen [employer] 12/24/2024 [id number] / [id number] / [id number] Procedures Procedure Name Priority Date/Time Associated Diagnosis Comments POTASSIUM Routine 10/25/2023 5:23 AM EST BASIC METABOLIC PANEL (BMP) Routine 10/24/2023 7:18 AM EST LIPID PANEL Routine 10/01/2023 12:11 PM EST Preoperative cardiovascular examination from Last 3 Months or Most Recently Relevant to Health Maintenance Results * (ABNORMAL) Potassium (10/25/2023 5:23 AM EST) POTASSIUM 3.3(L) 3.4 - 5.1 mmol/L [facility] Blood 10/25/2023 5:23 AM EST 10/25/2023 5:39 AM EST us Bolivar Meyer MD LAB BLOOD BKR ORDERA BLES Final Result [facility] [address] [place] [address] * (ABNORMAL) Basic metabolic panel (10/24/2023 7:18 AM EST) SODIUM 134(L) 136 - 145 mmol/L [facility] POTASSIUM 3.0(L) 3.4 - 5.1 mmol/L [facility] CHLORIDE 93(L) 98 - 107 mmol/L [facility] CO2 30 22 - 31 mmol/L [facility] BUN <3(L) 6 - 23 mg/dL [facility] CREATININE 0.30(L) 0.50 - 1.20 mg/dL [facility] GLUCOSE 99 70 - 100 mg/dL [facility] CALCIUM 8.1(L) 8.8 - 10.7 mg/dL [facility] EGFR >120 >59 mL/min/1. 73m2 [facility] Comment:Estimated glomerular filtration rate calculated using the CKD-EPI refit equation. ANION GAP 11 7 - 17 mmol/L [facility] Blood 10/24/2023 7:18 AM EST 10/24/2023 8:13 AM EST Bolivar Meyer MD LAB BLOOD BKR ORDERA BLES Final Result Performing Organization Address [facility] Co de Phone Number [facility] [address] [place] [phone] * (ABNORMAL) Lipid panel (10/01/2023 12:11 PM EST) CHOLESTEROL 166 <200 mg/dL [facility] TRIGLYCERIDES 152(H) 35 - 150 mg/dL [facility] HDL 60 40 - 80 mg/dL [facility] CALCULATED LDL 76 50 - 129 mg/dL [facility] VLDL 30 <31 mg/dL [facility] CARDIAC RISK RATIO 2.8 0.0 - 4.0 [facility] 10/01/2023 12:1 1 PM EST 10/01/2023 12:21 PM EST Isabel Cameron MD LAB BLOOD BKR ORDERABLES F inal Result Performing Organization Address City/[facility] Co de Phone Number [facility] [address] [place] [phone] from Last 3 Months or Most Recently Relevant to Health Maintenance Insurance MEDICARE PART A & B [facility] CARE MEDICARE REPLACEMENT [place] [facility] MEDICARE PART A & B [facility] CARE MEDICARE REPLACEMENT MEDICARE PART A & B CARE MEDICARE REPLACEMENT MEDICARE PART A & B Member Subscriber Plan / Payer (Ef fective 1999-) Name:Yu Morgan Member ID:[id number] Relation to Subscriber:Self Name:Yu Morgan Subscriber ID:[id number] Payer ID:[id number] Group ID:Not on file Type:Medicare Address: [employer] [address] [place] [address] [place] [address] CARE MEDICARE REPLACEMENT MEDICARE PART A & B [facility] ONE CARE MEDICARE REPLACEMENT MEDICARE PART A & [place] [address] [place] [address] CARE MEDICARE REPLACEMENT MEDICARE PART A & B Member Subscriber Plan / Payer (Ef fective 1999-Present) Name:Yu Morgan Member ID:[id number] Relation to Subscriber:Self Name:Yu Morgan Subscriber ID:[id number] Payer ID:[id number] Group ID:Not on file Type:Medicare Address: [facility] [address] [place] [address] [place] [address] CARE MEDICARE REPLACEMENT MEDICARE PART A & B CARE MEDICARE REPLACEMENT [place] [address] MEDICARE PART A & B CARE MEDICARE REPLACEMENT Advance Directives For more information, please contact: [phone] (9AM - 5PM [facility], Friday-Friday) Documents on File Type Date Recorded Patient Cross Roller Expl anation Healthcare Proxy 10/10/2023 4:15 PM [...] Status Communicated To: Inpatient Attending Care Teams Law Office Manager Relationship Specialty Start Date End Date Jigar Patel PA [address] [place] [address] PCP - General 07/24/22 Edi Montoya MD [address] [place] [address] [place] [address] Pulmonary Disease 09/25/23 Additional Source Comments The information contained in this document represents components of the legal health record. It is not the complete legal health record.[facility]
--- OUTSIDE RECORDS SUMMARY | 2025-10-13 19:26 | XMS_ITS | Encounter Summary ---
Author Organization [facility] Address [address] [place] [address] Phone Care Team Providers Care Clinical Educator Name Role Phone Jigar Patel Primary Care Provider + Edi Montoya MD Unavailable Encounter Details Date Type Department Care Team (Late st Contact Info) Description 04/17/2023 Procedure Pass [facility] Periop [address] [place] [address] Social History Tobacco Use Types Packs/Day Years [...] documented as of this encounter Care Teams Clinical Educator Relationship Specialty Start Date End Date Jigar Patel PA [address] [place] [address] PCP - General 07/24/22 Edi Montoya MD [address] [place] [address] [place] [address] Pulmonary Disease 09/25/23 documented as of this encounter Additional Source Comments The information contained in this document represents components of the legal health record. It is not the complete legal health record.[facility]
--- OUTSIDE RECORDS SUMMARY | 2025-10-13 19:26 | XMS_ITS | Encounter Summary ---
Author Organization [facility] Address [address] [place] [address] Phone Care Team Providers Care Packaging Machine Operator Name Role Phone Jigar Patel Primary Care Provider + Edi Montoya MD Unavailable Encounter Details Date Type Department Care Team (Late st Contact Info) Description 10/05/2023 Procedure Pass [facility] [address] [place] [address] Social History Tobacco Use Types Packs/Day Years [...] documented as of this encounter Care Teams Packaging Machine Operator Relationship Specialty Start Date End Date Jigar Patel PA [address] [place] [address] PCP - General 07/24/22 Edi Montoya MD [address] [place] [address] [place] [address] Pulmonary Disease 09/25/23 documented as of this encounter Additional Source Comments The information contained in this document represents components of the legal health record. It is not the complete legal health record.[facility]
--- OUTSIDE RECORDS SUMMARY | 2025-10-13 19:26 | XMS_ITS | Encounter Summary ---
Author Organization [facility] Address [address] [place] [address] Phone Care Team Providers Care Insurance Processing Clerk Name Role Phone Jigar Patel Primary Care Provider + Edi Montoya MD Unavailable Encounter Details Date Type Department Care Team (Late st Contact Info) Description 10/02/2023 Procedure Pass [facility] Periop [address] [place] [address] Social History Tobacco Use Types Packs/Day Years [...] 10/03/2023 3:00 AM Luisa Don RN * [place] Suicide Severity Rating Scale (Screener/Recent Self-Report) Question [...] documented as of this encounter Care Teams Insurance Processing Clerk Relationship Specialty Start Date End Date Jigar Patel PA [address] [place] [address] PCP - General 07/24/22 Edi Montoya MD [address] [place] [address] [place] [address] Pulmonary Disease 09/25/23 documented as of this encounter Additional Source Comments The information contained in this document represents components of the legal health record. It is not the complete legal health record.[facility]
--- OUTSIDE RECORDS SUMMARY | 2025-10-13 19:26 | XMS_ITS | Encounter Summary ---
Author Organization [facility] Address [address] [place] [address] Phone Care Team Providers Care Lock Tender Name Role Phone Jigar Patel Primary Care Provider + Edi Montoya MD Unavailable Encounter Details Date Type Department Care Team (Late st Contact Info) Description 10/02/2022 Procedure Pass [facility] Periop [address] [place] [address] Social History Tobacco Use Types Packs/Day Years [...] documented as of this encounter Care Teams Lock Tender Relationship Specialty Start Date End Date Jigar Patel PA [address] [place] [address] PCP - General 07/24/22 Edi Montoya MD [address] [place] [address] [place] [address] Pulmonary Disease 09/25/23 documented as of this encounter Additional Source Comments The information contained in this document represents components of the legal health record. It is not the complete legal health record.[facility]
--- OUTSIDE RECORDS SUMMARY | 2025-10-13 19:26 | XMS_ITS | Data Portability ---
Author Organization [employer], [facility] Address [address] [place] [address] Care Team Providers Care Assistant Operator Name Role Phone HIM CCA OTHER Assessment Encounter Date Assessment Date Assessment LastModified by Organization Details LastModified Time 11/29/2022 11/29/2022 I have reviewed and agree with the assessment and plan as documented by the electronic page makeup system operator. I provided real-time medical direction for [...] assessment and plan as documented by the electronic page makeup system operator. I provided real time medical direction for this encounter and was immediately available to provide additional phone based assistance as needed. History as noted by electronic page makeup system operator. Pt with history of multiple abdominal/bowel surgeries including prior colostomy reversal. Pt has known ventral hernia and has been evaluated at [facility] for surgical repair of the hernia. Pt [...] she was hoping to get to [facility] tomorrow, but is now stating that she is willing to go to the [facility] ED (since they are part of [facility]) for evaluation and possible transfer to [facility] for surgical evaluation. Pipeline Superintendent helps to arrange ambulance transport to the [facility] ED. I call an expect to the [facility] ED furnace charger as well. [email or web address] Not available 09/02/2023 17:22:49 Plan of Treatment Reminders Order Date Submit Date Provider Last Modified By Organization Details Last Modified Time Details Appointments None recorded. Lab None recorded. Referral None recorded. Procedures None recorded. Surgeries None recorded. Imaging None recorded. Medication Orders cephalexin 500 mg capsule 2024 025 [facility], [address] [place] [address], [id number], 5 05:01:25 cephalexin 500 mg capsule 2024 025 [id number], [address] [place], [address], 5 05:01:25 acetaminoph en 500 mg tablet 2024 025 [facility], [address] [place] [address], [id number], 5 05:02:09 acetaminoph en 500 mg tablet 2024 025 [id number], [address] [place], [address], 5 05:02:09 Moisture Barrier Ointment 0.44 %-20.6 % 2022 023 [facility], [address] [facility], [place], [address], 12:47:52 Patient TargetsNo targets recorded. Patient InstructionsNo instructions recorded. Reason for Referral None Reported. Medical Equipment None Reported. Allergies Allergen ID Allergen Name Allergen Category Reaction Reaction Severity Criticality Documentation Date Start Date Code Code System Note Provider Name and Address Organization Details Recorded Time 16514 doxycycli ne Not available Not available Not available Not available 08/26/2025 3640 RxNorm Not Available [employer] - production 17:00:57 26096 Non-stero idal anti-infl ammatory agent (substanc e) medicatio n Not available Not available Not available 08/26/2025 30788 5008 SNOMED Not Available [facility] - production 17:00:57 91641 codeine medicatio n nausea Not available Not available 08/26/20252011 2670 RxNorm Rash unrec ogniz ed react ion (text : GI intol eranc e, code: 32119 5008) (from exter nal sourc e) PAL SHRESTHA MD [address] [place] [address],[address] [facility], [place], [address], [place] [employer] 18:02:33 00695 dexametha sone medicatio n Not available Not available Not available 08/26/2025 3264 RxNorm Not Available [employer] - prod 17:52:06 56508 doxycycli ne hyclate medicatio n Not available Not available Not available 08/26/20252021 88159 RxNorm unrec ogniz ed react ion (text : Nause a and/o r Vomit ing, code: 23637 000) (from exter nal sourc e) Not Available [employer] - prod 17:52:15 03322 Bactrim medicatio n abdominal pain Not available Not available 08/26/2025 32795 9 RxNorm PAL SHRESTHA MD [address], [place], [phone], [employer] 18:04:26 8461 Product containin g penicilli n (product) medicatio n vomiting Not available Not available 08/24/20242011 25553 8001 SNOMED PAL SHRESTHA MD [address] [facility],[address], [place], [address], [employer] 18:02:56 8462 aspirin medicatio n Not available [...] Vitals Date Recorded Respiratory rate Oxygen saturation Body temperature Heart rate Systolic And Diastolic Provider Name and Address Organization Details Last Updated DateTime 3 16 /min 94 % 98.5 [degF] 83 /min 152/92 mm[Hg] Not Available [facility] - production 3 12:24:28 Date Recorded Respiratory rate Body weight Oxygen saturation Heart rate Systolic And Diastolic Provider Name and Address Organization Details Last Updated DateTime 3 16 /min 73442.6 8 g 98 % 79 /min 144/90 mm[Hg] Not Available [employer] - production 3 13:06:43 Date Recorded Heart rate Oxygen saturation Body temperature Respiratory rate Systolic And Diastolic Provider Name and Address Organization Details Last Updated DateTime 3 85 /min 96 % 98.4 [degF] 16 /min 154/83 mm[Hg] Not Available [employer] - production 3 20:27:00 Date Recorded Respiratory rate Body weight Oxygen saturation Body height Heart rate Body temperature Systolic And Diastolic Systolic And Diastolic Provider Name and Address Organization Details Last Updated DateTime 5 18 /min 16560.5 2 g 97 % 162.56 cm 108 /min 99.2 [degF] 180/100 mm[Hg] 160/100 mm[Hg] Not Available [employer] - [employer] 5 18:16:27 Date Recorded Respiratory rate Heart rate Oxygen saturation Body temperature Systolic And Diastolic Provider Name and Address Organization Details Last Updated DateTime 3 18 /min 96 /min 95 % 98.7 [degF] 130/78 mm[Hg] Not Available [employer] 3 15:16:46 Social History None recorded. Functional Status None recorded. Mental Status None recorded. Family History Nothing Reported. Medical History No medical history recorded. Gynecological HistoryNo gynecological history recorded. Obstetrics History GPAL:G 0 P 0 0 0 0 Past Encounters Encounter ID Performer Location Encounter Start Date Encounter Closed Date Diagnosis/Indication Diagnosis SNOMED-CT Code Diagnosis ICD10 Code Diagnosis IMO Codes Diagnosis Note [id number] Shelli Velez MD Main - [address] [address] 11/29/2022 12:24:25 12/02/2022 12:22:07 Epigastric pain 42846149 R10.13 [id number] Chema Quezada MD Main - [address] [address] 04/25/2023 13:06:41 04/29/2023 10:15:27 Carpal tunnel syndrome 12044045 G56.01 This 63-year-ol d female with previous right carpal tunnel surgery has a history of right wrist and hand pain that has been worse over the past week. The pain hasn't responded to OTC meds. I ordered Toradol 30 mg IM. She will follow-up with her regular physicians . The patient agreed with this plan. [id number] Chema Quezada MD Main - [facility] [address] [place] [address] 04/26/2023 20:26:56 04/28/2023 10:33:04 Pain in limb 74962260 M79.609 This 63-year-ol d female continues to [...] option. The patient agreed with this plan. [id number] Christoph Blood MD Main - [address] [address] 09/02/2023 15:16:43 09/02/2023 22:32:50 Abdominal pain 49013087 R10.9 [id number] PAL SHRESTHA MD Main-[facility] [address] [address] 08/26/2025 17:51:35 08/26/2025 18:56:46 Disorder of right upper extremity 4611369720 98379 R22.31 [id number] Evaluation in the field was performed by my electronic page makeup system operator colleague, as noted above, I provided real-time direction and supervisio n for this visit. The evaluation revealed 65-year-ol d female with a history of COPD/asthm a, congestive heart failure, and cancer presenting with right forearm redness, swelling, and pain. The patient was discharged today from [facility], where she was admitted for hernia [...] apixaban therapy).E levated BP Plan:Area outlined by electronic page makeup system operator for monitoring progressio n.Keflex initiated (first dose given by electronic page makeup system operator) ; 1 capsule QID 5 days.Patie nt reports prior tolerance to Keflex.All ergic [...] numbness or coolness of the hand s three affiliated urgent care or ED evaluation if any [...] Mcguire Member ID Guarantor Name 04/25/2023 1 [facility] - DOS PRIOR TO 2023 - DUAL ELIGIBLE (MEDICARE REPLACEMENT/ADV ANTAGE - HMO) Yu Morgan [id number] Yu Morgan 08/26/2025 1 [facility] - DOS ON OR AFTER 2023 - DUAL ELIGIBLE - NURSING HOME OPTIONS AND ONE CARE (MEDICARE REPLACEMENT/ADV ANTAGE - HMO) Yu Morgan [id number] Yu Morgan Notes Date Note Type Note [...] dizzy CHF history, increased swelling and edema Weakness/tachycardia Chief Complaints: Chest Pain, Shortness of Breath/Dyspnea PMH: COPD/Asthma, CHF Allergies: Penicillin, Aspirin Comments: Member calling in to place a referral, verified via . Members community PULL OVER MACHINE OPERATOR nurse present during time of triage. Member [...] home. Shelli Velez MD [address] [facility],[address], [place], [address], [employer] 11/29/2022 12:46:44 04/25/2023 text/html ROS as noted in the HPI HPI: Yu states since Friday her right [...] she has an appt with PCP tomorrow. ..................... ..................... ..................... ..................... ..................... ..................... ............... CRC Nursing Assessment: Comments: CRC RN DID NOT NEED FURTHER INFO ..................... ..................... ..................... ..................... ..................... ..................... ............... Pipeline Superintendent Note From Dave Mai: pt requesting visit [...] has good pulses and sensation. VM contacted [facility] ordered 30mg of Toradol IM . Toradol given in left deltoid . Pt educated on s/s warranting a 911 call/trip to the hospital. Pt advised to keep F/U appt tomorrow with her doctor. Pipeline Superintendent Allergies: Penicillin, Aspirin ..................... ..................... ..................... ..................... ..................... ..................... ............... Disposition: Carolina Chema Quezada MD [address] [facility],[address], [place], [address], [employer] 04/28/2023 17:27:10 04/26/2023 text/html ROS as noted in the HPI HPI: Member with carpal tunnel pain. Went to urgent care today states she was given medication but it has done nothing to help with the pain. Member requesting visit for pain management until she can be seen by PCP on Friday. ..................... ..................... ..................... ..................... ..................... ..................... ............... CRC Nursing Assessment: Comments: CRC RN DId not further info,nessa Quezada MD [address] [facility],[address], [place], [address], [employer] 04/26/2023 20:32:11 09/02/2023 text/html ROS as noted in the HPI This was a supervised home visit with electronic page makeup system operator Brenda Newton. HPI: Member reports that she is experiencing abdominal and hernia pain today. Vomiting since this morning. Sweating. Member has hx of hernia pain and is trying to go to [facility] for a urgent medical visit tomorrow. Member [...] will call 911 if her symptoms worsen ..................... ..................... ..................... ..................... ..................... ..................... ............... Pipeline Superintendent Note From Brenda Newton: Upon arrival, pt was lying in bed on her right side. A/O x4 pt color is pale/warm/dry. Pt is not in any immediate respiratory distress. Pt stated that she has extensive abdominal issues and is supposed to have surgery in [place]. Pt states she has been in 10/10 pain x 2-3 days with nausea, vomiting, and bloody stools. Pt states she wants to go to the ER but insists she gets to [facility] because they are the only ones who will transfer her to [place]. Vitals as noted. Hernia can be visualized in the abdomen. Abdomen is non rigid but extremely tender to the touch. Pt denies any CP, dizziness and/or SOB. [facility] contacted and agrees pt needs to be evaluated in ER. Pt states [facility] will find someone to [facility] and once lifeline is activated, rep stated she told responding unit that pt must be taken to [facility]. EMS BLS unit arrives on scene and states they cannot transport outside their area. Dispatch is notified and asked if [facility] can transport pt to [facility]. [facility] arrives on scene to transport pt and [facility] is cleared. It is noted that pt stated she was at [facility] earlier today for blood work. Pt stated she was brought by transport but they will not do same day transports. [facility] contacted [facility] to alert of pt s arrival. Call is then cleared. Pipeline Superintendent Allergies: Penicillin, Aspirin ..................... ..................... ..................... ..................... ..................... ..................... ............... Disposition: Fulfilled Christoph Blood MD [address] [place] [address],[address], [place], [address] [employer] 09/02/2023 17:23:01 08/26/2025 text/html ROS as noted in the [facility] CRC Nurse Triage Notes (Paradise Santizo): Reason [...] - 17:00 Allergies Reviewed at 08/26/2025 - 17: Comments: 65 y.o female complains of Extremity [...] new medications. I provided information on the [facility] provider response time and advised the patient and/or caregiver to monitor reported signs and symptoms. I discussed the warning signs of when to seek emergency care. ..................... ..................... ..................... ..................... ..................... ..................... ............... Pipeline Superintendent Note From Kobi Erickson: [facility] responds to the listed address for a 65 yof w/ a c/c of UE redness and pain. Upon arrival on scene, pt is standing at the open door to her apartment wearing a bathrobe and invites [facility] inside. She is generally well-appearing w/ p/w/d skin and NAD. She sits in the recliner in her living room for evaluation. She tells [facility] she was discharged this afternoon from the [...] and consents to evaluation and treatment today. [facility] captures pt consent signature. Vital signs [...] and no numbness or tingling are present. [facility] contacts [facility] and discusses the above. [facility] confirms pt allergies and orders [facility] to outline the area of redness on the forearm so pt can monitor the area. [facility] then orders 500mg cephalexin PO for pt and calls in 5-day course to pt's pharmacy. [facility] requests a recheck of pt's bp and instructs pt to apply warn compresses and to monitor the area and if the redness begins to grow outside the borders drawn w/ the marker or if she gets worse in any way, she needs to return to the ED for stronger abx. [facility] administers 500mg x1 tablet PO to pt and outlines the borders of the red area on the forearm. [facility] also instruct pt to apply warm compresses. BP is reassessed and remains high. Pt feels her elevated pressure and SAMSON are due to her fatigue and not feeling well. [facility] is informed and [facility] orders 1G Tylenol PO for pt. [facility] administers 500mg x2 tablets Tylenol PO to pt and instructs her to return to the ED if she sees no improvement in the forearm by Friday nigh/Friday morning at the latest. Pt thanks [facility] for coming. [facility] is clear. Report completed by ATIF Erickson [id number]. [facility] Medication Orders: cephalexin 500 mg capsule: Administered acetaminophen 500 mg tablet: Administered ..................... ..................... ..................... ..................... ..................... ..................... ............... [facility] Consulted: Pal Shrestha ..................... ..................... ..................... ..................... ..................... ..................... ............... Disposition: Fulfilled PAL SHRESTHA MD [address] [facility],[address] [facility], [place], [address], [employer] 08/26/2025 18:53:11 OBGyn Episode No OBEpisode recorded.
== END 2025-10-13 15:30 | disposition home or self-care (01) ==
LOC: HO.HOP 15:30
PROVIDERS: PCP Physician Assistant; Visit Provider Clinical Nurse Specialist Psychiatric/Mental Health
DX: F43.12 Post-traumatic stress disorder, chronic (principal); F41.1 Generalized anxiety disorder; F41.0 Panic disorder [episodic paroxysmal anxiety]; F60.3 Borderline personality disorder; F33.9 Major depressive disorder, recurrent, unspecified
CPT/HCPCS: 99214

== ENCOUNTER 2025-10-18 14:32 | Outpatient (AMB) | payer OTHER, SELFPAY ==
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
--- OUTSIDE RECORDS SUMMARY | 2025-10-18 15:48 | XMS_ITS | Encounter Summary ---
Author Organization [facility] Address [address] [place] [address] Phone Care Team Providers Care Manufacturing Technologist Name Role Phone Jigar Patel Primary Care Provider + Edi Montoya MD Unavailable Encounter Details Date Type Department Care Team (Late st Contact Info) Description 01/20/2023 Procedure Pass [facility] Periop [address] [place] [address] Social History Tobacco Use Types Packs/Day Years [...] as of this encounter Care Teams Manufacturing Technologist Relationship Specialty Start Date End Date Jigar Patel PA [address] [place] [address] PCP - General 07/24/22 Edi Montoya MD [address] [place] [address] [place] [address] Pulmonary Disease 09/25/23 documented as of this encounter Additional Source Comments The information contained in this document represents components of the legal health record. It is not the complete legal health record.[facility]
--- OUTSIDE RECORDS SUMMARY | 2025-10-18 15:49 | XMS_ITS | Continuity of Care Document ---
Author Organization ID - [employer] [facility], [facility] Address [address] [place] [id number] Care Team Providers Care Shallot Packer Name Role Phone HIM [facility] OTHER Assessment No assessment recorded. Plan of Treatment Reminders Order Date Submit Date Provider Last Modified By Organization Details Last Modified Time Details Appointments None recorded. Lab None recorded. Referral None recorded. Procedures None recorded. Surgeries None recorded. Imaging None recorded. Medication Orders cephalexin 500 mg capsule 2024 025 [facility], [address] [place] [address], [id number], 5 05:01:25 cephalexin 500 mg capsule 2024 025 [id number], [address] [place], [phone], 5 05:01:25 acetaminoph en 500 mg tablet 2024 025 [facility], [address] [place] [address], [id number], 5 05:02:09 acetaminoph en 500 mg tablet 2024 025 [id number], [address] [place], [id number], 5 05:02:09 Patient TargetsNo targets recorded. Patient InstructionsNo instructions recorded. Reason for Referral None Reported. Medical Equipment None Reported. Allergies Allergen ID Allergen Name Allergen Category Reaction Reaction Severity Criticality Documentation Date Start Date Code Code System Note Provider Name and Address Organization Details Recorded Time 99851 doxycycli ne Not available Not available Not available Not available 08/26/2025 3640 RxNorm Not Available [facility] - production 17:00:57 60605 Non-stero idal anti-infl ammatory agent (substanc e) medicatio n Not available Not available Not available 08/26/2025 20800 5008 SNOMED Not Available [facility] - production 17:00:57 45398 codeine medicatio n nausea Not available Not available 08/26/20252011 2670 RxNorm Rash unrec ogniz ed react ion (text : GI intol eranc e, code: 27746 5008) (from exter nal sourc e) PAL CAGLE MD [address] [place] [address],[address], [place], [phone], [facility]utch 18:02:33 10100 dexametha sone medicatio n Not available Not available Not available 08/26/2025 3264 RxNorm Not Available issa - External Data Service - prod 17:52:06 71456 doxycycli ne hyclate medicatio n Not available Not available Not available 08/26/20252021 86685 RxNorm unrec ogniz ed react ion (text : Nause a and/o r Vomit ing, code: 40448 000) (from exter nal sourc e) Not Available issa - External Data Service - prod 17:52:15 12955 Bactrim medicatio n abdominal pain Not available Not available 08/26/2025 97769 9 RxNorm PAL CAGLE MD [address] [place] [address],[address], [place], [address], Clutch 18:04:26 8461 Product containin g penicilli n (product) medicatio n vomiting Not available Not available 08/24/20242011 55854 8001 SNOMED PAL CAGLE MD [address] [place] [address],[address], [place], [phone], Clutch 18:02:56 8462 aspirin medicatio n Not available [...] Details Last Updated DateTime 5 18 /min 74279.5 2 g 97 % 162.56 cm 108 [...] ICD10 Code Diagnosis IMO Codes Diagnosis Note [id number] PAL CAGLE MD Main-inst ED Medical [facility] [address] [place] [address] 08/26/2025 17:51:35 08/26/2025 18:56:46 Disorder of right upper extremity [id number] 31681 R22.31 [id number] Evaluation in the field was performed by my numerical control drill press operator colleague, as noted above, I provided real-time direction and supervisio n for this visit. The evaluation revealed 65-year-ol d female with a history of COPD/asthm a, congestive heart failure, and cancer presenting with right forearm redness, swelling, and pain. The patient was discharged today from , where she was admitted for hernia and [...] apixaban therapy).E levated BP Plan:Area outlined by numerical control drill press operator for monitoring progressio n.Keflex initiated (first dose given by numerical control drill press operator) ; 1 capsule QID 5 days.Patihanna nt [...] numbness or coolness of the hand s [place] [facility] care or ED evaluation if any [...] Mcguire Member ID Guarantor Name 08/26/2025 1 [facility] - DOS ON OR AFTER 2023 - DUAL ELIGIBLE - [facility] OPTIONS AND ONE CARE (MEDICARE REPLACEMENT/ADV ANTAGE - HMO) Yu Morgan [id number] Yu Morgan Notes Date Note Type Note Provider Name and Address Organization Details Recorded Time 08/26/2025 text/html ROS as noted in the [facility] CRC Nurse Triage Notes (Paradise Santizo): [...] ..................... ..................... ..................... ..................... ..................... ..................... ............... Pharmacovigilance Specialist Note From Kobi Erickson: [facility] responds to the listed address for a 65 yof w/ a c/c of UE redness and pain. Upon arrival on scene, pt is standing at the open door to her apartment wearing a bathrobe and invites [facility] inside. She is generally well-appearing w/ p/w/d skin and NAD. She sits in the recliner in her living room for evaluation. She tells [facility] she was discharged this afternoon from [...] and consents to evaluation and treatment today. [facility] captures pt consent signature. Vital signs [...] and no numbness or tingling are present. [facility] contacts [facility] and discusses the above. [facility] confirms pt allergies and orders [facility] to outline the area of redness on the forearm so pt can monitor the area. [facility] then orders 500mg cephalexin PO for pt and calls in 5-day course to pt's pharmacy. [facility] requests a recheck of pt's bp and instructs pt to apply warn compresses and to monitor the area and if the redness begins to grow outside the borders drawn w/ the marker or if she gets worse in any way, she needs to return to the ED for stronger abx. [facility] administers 500mg x1 tablet PO to pt and outlines the borders of the red area on the forearm. [facility] also instruct pt to apply warm compresses. BP is reassessed and remains high. Pt feels her elevated pressure and SAMSON are due to her fatigue and not feeling well. [facility] is informed and [facility] orders 1G Tylenol PO for pt. [facility] administers 500mg x2 tablets Tylenol PO to pt and instructs her to return to the ED if she sees no improvement in the forearm by Friday nigh/Friday morning at the latest. Pt thanks [facility] for coming. [facility] is clear. Report completed by ATIF Erickson [id number]. [facility] Medication Orders: cephalexin 500 mg capsule: Administered acetaminophen 500 mg tablet: Administered ..................... ..................... ..................... ..................... ..................... ..................... ............... [facility] Consulted: Pal Cagle ..................... ..................... ..................... ..................... ..................... ..................... ............... Disposition: Fulfilled PAL CAGLE MD [address] [place] [address],[address], [place], [address], [facility] - [employer], [facility] 08/26/2025 18:53:11 OBGyn Episode No OBEpisode recorded.
--- OUTSIDE RECORDS SUMMARY | 2025-10-18 15:49 | XMS_ITS | Encounter Summary ---
Author Organization [facility] Address [email or web address] [place] [address] Phone Care Team Providers Care Assistant Finance Manager Name Role Phone Jigar Patel Primary Care Provider + Edi Montoya MD Unavailable [phone] Encounter Details Date Type Department Care Team (Late st Contact Info) Description 04/17/2023 Procedure Pass [facility] Periop [address] [place] [address] Social History Tobacco Use Types Packs/Day Years [...] documented as of this encounter Care Teams Assistant Finance Manager Relationship Specialty Start Date End Date Jigar Patel PA [address] [place] [address] PCP - General 07/24/22 Edi Montoya MD [address] [place] [address] [place] [address] Pulmonary Disease 09/25/23 documented as of this encounter Additional Source Comments The information contained in this document represents components of the legal health record. It is not the complete legal health record.[facility]
--- OUTSIDE RECORDS SUMMARY | 2025-10-18 15:49 | XMS_ITS | Encounter Summary ---
Author Organization [facility] Address [address] [place] [address] Phone Care Team Providers Care Major Case Detective Name Role Phone Jigar Patel Primary Care Provider + Edi Montoya MD Unavailable Encounter Details Date Type Department Care Team (Late st Contact Info) Description 08/21/2022 Procedure Pass [facility] [address] [place] [address] Social History Tobacco Use Types Packs/Day Years [...] documented as of this encounter Care Teams Major Case Detective Relationship Specialty Start Date End Date Jigar Patel PA [address] [place] [address] PCP - General 07/24/22 Edi Montoya MD [address] [place] [address] [place] [address] Pulmonary Disease 09/25/23 documented as of this encounter Additional Source Comments The information contained in this document represents components of the legal health record. It is not the complete legal health record.[facility]
--- OUTSIDE RECORDS SUMMARY | 2025-10-18 15:49 | XMS_ITS | Encounter Summary ---
Author Organization [facility] Address [address] [place] [address] Phone Care Team Providers Care Bander Name Role Phone Jigar Patel Primary Care Provider + Edi Montoya MD Unavailable Encounter Details Date Type Department Care Team (Late st Contact Info) Description 09/25/2023 Procedure Pass [facility] [address] [place] [address] Social History Tobacco Use Types Packs/Day Years [...] documented as of this encounter Care Teams Bander Relationship Specialty Start Date End Date Jigar Patel PA [address] [place] [address] PCP - General 07/24/22 Edi Montoya MD [address] [place] [address] [place] [address] Pulmonary Disease 09/25/23 documented as of this encounter Additional Source Comments The information contained in this document represents components of the legal health record. It is not the complete legal health record.[facility]
--- OUTSIDE RECORDS SUMMARY | 2025-10-18 15:49 | XMS_ITS | Encounter Summary ---
Author Organization [facility] Address [address] [place] [address] Phone Care Team Providers Care Top Precipitator Operator Helper Name Role Phone Jigar Patel Primary Care Provider + Edi Montoya MD Unavailable Encounter Details Date Type Department Care Team (Late st Contact Info) Description 10/02/2022 Procedure Pass [facility] Periop [address] [place] [address] Social History Tobacco Use Types Packs/Day Years [...] documented as of this encounter Care Teams Top Precipitator Operator Helper Relationship Specialty Start Date End Date Jigar Patel PA [address] [place] [address] PCP - General 07/24/22 Edi Montoya MD [address] [place] [address] [place] [address] Pulmonary Disease 09/25/23 documented as of this encounter Additional Source Comments The information contained in this document represents components of the legal health record. It is not the complete legal health record.[facility]
--- OUTSIDE RECORDS SUMMARY | 2025-10-18 15:49 | XMS_ITS | Encounter Summary ---
Author Organization [facility] Address [address] [place] [address] Phone Care Team Providers Care Computer Repair Technician Name Role Phone Jigar Patel Primary Care Provider + Edi Montoya MD Unavailable Encounter Details Date Type Department Care Team (Late st Contact Info) Description 04/17/2023 Procedure Pass [facility] Periop [address] [place] [address] Social History Tobacco Use Types Packs/Day Years [...] documented as of this encounter Care Teams Computer Repair Technician Relationship Specialty Start Date End Date Jigar Patel PA [address] [place] [address] PCP - General 07/24/22 Edi Montoya MD [address] [place] [address] [place] [address] Pulmonary Disease 09/25/23 documented as of this encounter Additional Source Comments The information contained in this document represents components of the legal health record. It is not the complete legal health record.[facility]
--- OUTSIDE RECORDS SUMMARY | 2025-10-18 15:49 | XMS_ITS | Encounter Summary ---
Author Organization [facility] Address [address] [place] [address] Phone Care Team Providers Care Plating Stripper Name Role Phone Jigar Patel Primary Care Provider + Edi Montoya MD Unavailable Encounter Details Date Type Department Care Team (Late st Contact Info) Description 11/25/2023 Procedure Pass [facility] Imaging, [place] [address] [place] [address] Social History Tobacco Use Types Packs/Day Years [...] on filedocumented in this encounter Care Teams Plating Stripper Relationship Specialty Start Date End Date Jigar Patel PA [address] [place] [address] PCP - General 07/24/22 Edi Montoya MD [address] [place] [address] [place] [address] Pulmonary Disease 09/25/23 documented as of this encounter Additional Source Comments The information contained in this document represents components of the legal health record. It is not the complete legal health record.[facility]
--- OUTSIDE RECORDS SUMMARY | 2025-10-18 15:49 | XMS_ITS | Encounter Summary ---
Author Organization [facility] Address [address] [place] [address] Phone Care Team Providers Care Coin Machine Service Repairer Name Role Phone Jigar Patel Primary Care Provider + Edi Montoya MD Unavailable Encounter Details Date Type Department Care Team (Late st Contact Info) Description 01/20/2023 Procedure Pass [facility] Periop [address] [place] [address] Social History Tobacco Use Types Packs/Day Years [...] documented as of this encounter Care Teams Coin Machine Service Repairer Relationship Specialty Start Date End Date Jigar Patel PA [address] [place] [address] PCP - General 07/24/22 Edi Montoya MD [address] [place] [address] [place] [address] Pulmonary Disease 09/25/23 documented as of this encounter Additional Source Comments The information contained in this document represents components of the legal health record. It is not the complete legal health record.[facility]
--- OUTSIDE RECORDS SUMMARY | 2025-10-18 15:49 | XMS_ITS | Encounter Summary ---
Author Organization [facility] Address [address] [place] [address] Phone Care Team Providers Care Thread Cutter Tender Name Role Phone Jigar Patel Primary Care Provider + Edi Montoya MD Unavailable Encounter Details Date Type Department Care Team (Late st Contact Info) Description 10/02/2023 Procedure Pass [facility] Periop [address] [place] [address] Social History Tobacco Use Types Packs/Day Years [...] documented as of this encounter Care Teams Thread Cutter Tender Relationship Specialty Start Date End Date Jigar Patel PA [address] [place] [address] PCP - General 07/24/22 Edi Montoya MD [address] [place] [address] [place] [address] Pulmonary Disease 09/25/23 documented as of this encounter Additional Source Comments The information contained in this document represents components of the legal health record. It is not the complete legal health record.[facility]
--- OUTSIDE RECORDS SUMMARY | 2025-10-18 15:49 | XMS_ITS | Encounter Summary ---
Author Organization [facility] Address [address] [place] [address] Phone Care Team Providers Care Junk Dealer Name Role Phone Jigar Patel Primary Care Provider + Edi Montoya MD Unavailable Encounter Details Date Type Department Care Team (Late st Contact Info) Description 10/22/2023 Procedure Pass [facility] Cross Sectional Interventional Radiology [address] [place] [address] Social History Tobacco Use Types Packs/Day Years [...] documented as of this encounter Care Teams Junk Dealer Relationship Specialty Start Date End Date Jigar Patel PA [address] [place] [address] PCP - General 07/24/22 Edi Montoya MD [address] [place] [address] [place] [address] Pulmonary Disease 09/25/23 documented as of this encounter Additional Source Comments The information contained in this document represents components of the legal health record. It is not the complete legal health record.[facility]
--- OUTSIDE RECORDS SUMMARY | 2025-10-18 15:49 | XMS_ITS | Clinical Summary ---
Author Organization [facility] Address [address] [facility] [address] [place] [address] Phone Care Team Providers Care Adult Crossing Guard Name Role Phone Jigar Patel Primary [...] this topic Medical Devices Implanted Type Area Credit Charge Authorizer Device Identifier Shelf Expiration Date Model / Serial / Lot Mesh Surgical [id number] Ph[employer] St Pocketed Bioresorbable Open Positioning System Oval - [id number] Implanted:Qty: 1 on 10/02/2023 by Chintan Figueroa MD at [facility] N/A: Abdomen [employer] 12/24/2024 [id number] / [id number] / [id number] Procedures Procedure Name Priority Date/Time Associated Diagnosis Comments POTASSIUM Routine 10/25/2023 5:23 AM EST BASIC METABOLIC PANEL (BMP) Routine 10/24/2023 7:18 AM EST LIPID PANEL Routine 10/01/2023 12:11 PM EST Preoperative cardiovascular examination from Last 3 Months or Most Recently Relevant to Health Maintenance Results * (ABNORMAL) Potassium (10/25/2023 5:23 AM EST) POTASSIUM 3.3(L) 3.4 - 5.1 mmol/L [facility] Blood 10/25/2023 5:23 AM EST 10/25/2023 5:39 AM EST us Bolivar Meyer MD LAB BLOOD BKR ORDERA BLES Final Result [facility] [address] [place] [address] * (ABNORMAL) Basic metabolic panel (10/24/2023 7:18 AM EST) SODIUM 134(L) 136 - 145 mmol/L [facility] POTASSIUM 3.0(L) 3.4 - 5.1 mmol/L [facility] CHLORIDE 93(L) 98 - 107 mmol/L [facility] CO2 30 22 - 31 mmol/L [facility] BUN <3(L) 6 - 23 mg/dL [facility] CREATININE 0.30(L) 0.50 - 1.20 mg/dL [facility] GLUCOSE 99 70 - 100 mg/dL [facility] CALCIUM 8.1(L) 8.8 - 10.7 mg/dL [facility] EGFR >120 >59 mL/min/1. 73m2 [facility] Comment:Estimated glomerular filtration rate calculated using the CKD-EPI refit equation. ANION GAP 11 7 - 17 mmol/L [facility] Blood 10/24/2023 7:18 AM EST 10/24/2023 8:13 AM EST Bolivar Meyer MD LAB BLOOD BKR ORDERA BLES Final Result Performing Organization Address [facility] Co de Phone Number [facility] [address] [place] [phone] * (ABNORMAL) Lipid panel (10/01/2023 12:11 PM EST) CHOLESTEROL 166 <200 mg/dL [facility] TRIGLYCERIDES 152(H) 35 - 150 mg/dL [facility] HDL 60 40 - 80 mg/dL [facility] CALCULATED LDL 76 50 - 129 mg/dL [facility] VLDL 30 <31 mg/dL [facility] CARDIAC RISK RATIO 2.8 0.0 - 4.0 [facility] 10/01/2023 12:1 1 PM EST 10/01/2023 12:21 PM EST Isabel Cameron MD LAB BLOOD BKR ORDERABLES F inal Result Performing Organization Address City/[facility] Co de Phone Number [facility] [address] [place] [phone] from Last 3 Months or Most Recently Relevant to Health Maintenance Insurance MEDICARE PART A & B [facility] MEDICARE REPLACEMENT [place] MEDICARE PART A & B [facility] MEDICARE REPLACEMENT MEDICARE PART A & B CARE MEDICARE REPLACEMENT MEDICARE PART A & B Member Subscriber Plan / Payer (Ef fective 1999-) Name:Yu Morgan Member ID:[id number] Relation to Subscriber:Self Name:Yu Morgan Subscriber ID:[id number] Payer ID:[id number] Group ID:Not on file Type:Medicare Address: [employer] [address] [place] [address] [place] [address] CARE MEDICARE REPLACEMENT MEDICARE PART A & B [facility] MEDICARE REPLACEMENT MEDICARE PART A & [place] [address] [place] [address] CARE MEDICARE REPLACEMENT MEDICARE PART A & B Member Subscriber Plan / Payer (Ef fective 1999-Present) Name:Yu Morgan Member ID:[id number] Relation to Subscriber:Self Name:Yu Morgan Subscriber ID:[id number] Payer ID:[id number] Group ID:Not on file Type:Medicare Address: [facility] [address] [place] [address] [place] [address] CARE MEDICARE REPLACEMENT MEDICARE PART A & B CARE MEDICARE REPLACEMENT [place] [address] MEDICARE PART A & B CARE MEDICARE REPLACEMENT Advance Directives For more information, please contact: [phone] (9AM - 5PM [facility], Friday-Friday) Documents on File Type Date Recorded Patient Sandblaster Glass Expl anation Healthcare Proxy 10/10/2023 4:15 PM [...] Status Communicated To: Inpatient Attending Care Teams Adult Crossing Guard Relationship Specialty Start Date End Date Jigar Patel PA [address] [place] [address] PCP - General 07/24/22 Edi Montoya MD [address] [place] [address] [place] [address] Pulmonary Disease 09/25/23 Additional Source Comments The information contained in this document represents components of the legal health record. It is not the complete legal health record.[facility]
--- OUTSIDE RECORDS SUMMARY | 2025-10-18 15:49 | XMS_ITS | Encounter Summary ---
Author Organization [facility] Address [address] [place] [address] Phone Care Team Providers Care Nursing Attendant Name Role Phone Jigar Patel Primary Care Provider + Edi Montoya MD Unavailable Encounter Details Date Type Department Care Team (Late st Contact Info) Description 10/10/2022 Procedure Pass [facility] [address] [place] [address] Social History Tobacco Use Types Packs/Day Years [...] documented as of this encounter Care Teams Nursing Attendant Relationship Specialty Start Date End Date Jigar Patel PA [address] [place] [address] PCP - General 07/24/22 Edi Montoya MD [address] [place] [address] [place] [address] Pulmonary Disease 09/25/23 documented as of this encounter Additional Source Comments The information contained in this document represents components of the legal health record. It is not the complete legal health record.[facility]
--- OUTSIDE RECORDS SUMMARY | 2025-10-18 15:49 | XMS_ITS | Encounter Summary ---
Author Organization [facility] Address [address] [place] [address] Phone Care Team Providers Care Roving Teller Name Role Phone Jigar Patel Primary Care Provider + Edi Montoya MD Unavailable Encounter Details Date Type Department Care Team (Late st Contact Info) Description 11/19/2023 Procedure Pass [facility] [address] [place] [address] Social History Tobacco Use Types Packs/Day Years [...] on filedocumented in this encounter Care Teams Roving Teller Relationship Specialty Start Date End Date Jigar Patel PA [address] [place] [address] PCP - General 07/24/22 Edi Montoya MD [address] [place] [address] [place] [address] Pulmonary Disease 09/25/23 documented as of this encounter Additional Source Comments The information contained in this document represents components of the legal health record. It is not the complete legal health record.[facility]
--- OUTSIDE RECORDS SUMMARY | 2025-10-18 15:50 | XMS_ITS | Clinical Summary ---
Author Organization [facility] [address] [facility] Address [address] [place] [address] Phone Care Team Providers Care Assigner Name Role Phone Jigar Patel Primary Care [...] DAY 30 tablet 08/22/20 25 Active pancrelipase, Lkm-Oltp-Dpkg, (CREON) 24,000-76,000 -120,000 unit capsuleIndications:P ancreatic insufficiency [...] Encounters Date Type Department Care Team Description 10/14/2025 Telephone [facility] [address] [place] [address] Jigar Patel PA 09/30/2025 Telephone Gastroenterology - [address] [place] [phone] Cordelia Santana MA from Last 3 Months Surgical History Surgery Date Site/Laterality Comments HERNIA REPAIR PROCEDURE: GA REPAIR FIRST ABDOMINAL WALL HERNIA OTHER SURGICAL [...] LAB CHEMISTRY METHOD 02/14/2025 2:19 PM EDT [facility] Blood Venous blood specimen / Unknown Venipuncture / Unknown 02/14/2025 9:42 AM EDT 02/14/2025 10:11 AM EDT Garrett Shabazz MD LAB BLOOD ORDERABLES Final Resu lt [facility] [address] [place] [address], * (ABNORMAL) Comprehensive metabolic panel (01/19/2025 10:59 AM EDT) Sodium 128(L) 133 - 145 mmol/L LAB CHEMISTRY METHOD 01/19/2025 2:51 PM EDT [facility] Potassium 3.4(L) 3.5 - 5.5 mmol/L LAB CHEMISTRY METHOD 01/19/2025 2:51 PM [facility] Chloride 91(L) 96 - 110 mmol/L LAB CHEMISTRY METHOD 01/19/2025 2:51 PM [facility] CO2 33(H) 21 - 32 mmol/L LAB CHEMISTRY METHOD 01/19/2025 2:51 PM [facility] Anion Gap 4 3 - 11 LAB CHEMISTRY METHOD 01/19/2025 2:51 PM [facility] Glucose 78 70 - 100 mg/dL LAB CHEMISTRY METHOD 01/19/2025 2:51 PM [facility] BUN 3(L) 5 - 25 mg/dL LAB CHEMISTRY METHOD 01/19/2025 2:51 PM T [facility] Creatinine 0.60 0.50 - 1.10 mg/dL LAB CHEMISTRY METHOD 01/19/2025 2:51 PM [facility] eGFR 102 >=60 mL/min/1. 73m2 LAB CHEMISTRY METHOD 01/19/2025 2:51 PM [facility] Comment:Calculation based on the Chronic Kidney Disease Epidemiology Collaboration (CKD-EPI) equation refit without adjustment for race. BUN/Creatinine Ratio 5.0 LAB CHEMISTRY METHOD 01/19/2025 2:51 PM EDT [facility] Calcium 9.0 8.5 - 10.5 mg/dL LAB CHEMISTRY METHOD 01/19/2025 2:51 PM EDT [facility] AST (SGOT) 18 10 - 42 unit/L LAB CHEMISTRY METHOD 01/19/2025 2:51 PM EDT [facility] ALT (SGPT) 25 10 - 60 unit/L LAB CHEMISTRY METHOD 01/19/2025 2:51 PM EDT [facility] Alkaline Phosphatase 133(H) 42 - 121 unit/L LAB CHEMISTRY METHOD 01/19/2025 2:51 PM EDT [facility] Total Protein 6.7 6.0 - 8.0 g/dL LAB CHEMISTRY METHOD 01/19/2025 2:51 PM EDT [facility] Albumin 3.7 3.2 - 5.0 g/dL LAB CHEMISTRY METHOD 01/19/2025 2:51 PM EDT [facility] Total Bilirubin 0.5 0.0 - 1.4 mg/dL LAB CHEMISTRY METHOD 01/19/2025 2:51 PM EDT [facility] Blood Venous blood specimen / Unknown Venipuncture / Unknown 01/19/2025 10:59 AM EDT 01/19/2025 11:33 AM EDT Garrett Shabazz MD LAB BLOOD ORDERABLES Final Resu lt [facility] [address] [place] [address], * COLONOSCOPY Anesthesia - [facility]; [facility] ENDOS[facility] (11/08/2024 8:55 AM EST) Anatomical [...] pathology results. Narrative 11/08/2024 8:59 AM EST [facility] GI Patient Name: Kain Dumont Procedure [...] for histology. Procedure Code(s): --- Professional --- 52393, Colonoscopy, flexible; with biopsy, single or multiple CPT copyright 2020 [employer]. All rights reserved. The codes documented in this report are preliminary and upon set decorator review may be revised to meet current compliance requirements. MD Garrett Do MD 11/08/2024 8:59:29 AM This report has been signed electronically.Garrett Shabazz MD Number of Addenda: 0 Note Initiated On: 11/08/2024 8:40 AM Scope In: Scope Out: Endoscopy Department at [facility] - [address] [place] [phone] Procedure Note Garrett Shabazz MD - 11/08/2024 [facility] GI Patient Name: Kain Dumont Procedure [...] Findings: There was evidence of a prior vmh-ni-ndrjvzf-colonic anastomosis in the sigmoid colon. This was patentand was characterized by healthy appearing mucosa. The anastomosis was traversed. The exam was otherwise without abnormality ondirect and retroflexion views. Clara-anal excoriationsnoted. Biopsies were taken with a cold forceps in therectum, in the sigmoid colon and in the distal ileum for histology. Procedure Code(s): --- Professional --- 68486, Colonoscopy, flexible; with biopsy, singleor multiple CPT copyright 2020 [employer]. All rights reserved. The codes documented in this report are preliminary and upon set decorator reviewmay be revised to meet current compliance requirements. MD Garrett Do MD 11/08/2024 8:59:29 AM This report has been signed electronically.Garrett Shabazz MD Number of Addenda: 0 Note Initiated On: 11/08/2024 8:40 AM Scope In: Scope Out: Endoscopy Department at [facility] - [address] [place] [phone] IMPRESSION: - Patent end-to-end ileo-colonic anastomosis, characterized [...] Most Recently Relevant to Health [place] [address] [facility] MEDICARE Member Subscriber Plan / Payer (Ef fective 2019-Present) Name:KAIN DUMONT Relation to Subscriber:Self Name:Kain Dumont Payer ID:[id number] Group ID:[id number] Type:Not on file Address: [address] [place] [place] [address] Advance Directives Documents on File Type Date Recorded Patient Manager Endoscopy Expl anation Health Care Decision (hx) 11/03/2022 [...] currently active code status orders. Care Teams Assigner Relationship Specialty Start Date End Date Jigar Patel PA [address] [place] [phone] [facility] - General 02/26/23
--- OUTSIDE RECORDS SUMMARY | 2025-10-18 15:50 | XMS_ITS | Encounter Summary ---
Author Organization [employer] Address [address] [place] [address] Care Team Providers Care Feed Mixer Name Role Phone Jigar Patel Primary Care Provider [phone] Reason for Referral * Consultation (Routine) - Authorized Specialty Diagnoses / Procedures Referred By Contac t Referred To Contact Cardiology Diagnoses A-fib (CMS/HCC V24, CMS/HCC V28) Jigar Patel PA [address] [place] [address] Phone: tel: fax: [facility] [address] [place] [address] Phone: tel: fax: Referral ID Status Reason Start Date Expiration Date Visits Requested Visits Authorized [id number] Authorized Specialty Services Required 5 10/14/2026 1 1 Reason for Visit * Reason Onset Date Comments Referral 10/14/2025 Received routine paper referral - Dec. ab Encounter Details Date Type Department Care Team (Late st Contact Info) Description 10/14/2025 Telephone [facility] - [address] [place] [phone] Jigar Patel PA [address] [place] [address] Social History Tobacco Use Types Packs/Day Years [...] Cheyanne Galindo RN documented in this encounter Plan of Treatment Scheduled Referrals Name Type Priority Associated Diagnoses Order Schedule Ambulatory referral to Cardiology Outpatient Referral Routine A-fib ([facility] V24, [facility] V28) 1 Occurrences starting 10/14/2025 until 10/14/2026 documented as of this encounter Visit Diagnoses Diagnosis A-fib ([facility] V24, [facility] V28)- Primary Atrial fibrillation documented in this encounter Care Teams Feed Mixer Relationship Specialty [place] [address] [place] [phone] PCP - General 02/26/23 documented as of this encounter
--- OUTSIDE RECORDS SUMMARY | 2025-10-18 15:50 | XMS_ITS | Encounter Summary ---
Author Organization [facility] Address [address] [place] [address] Phone Care Team Providers Care Claims Adjuster Supervisor Name Role Phone Jigar Patel Primary Care Provider + Edi Montoya MD Unavailable Encounter Details Date Type Department Care Team (Late st Contact Info) Description 10/05/2023 Procedure Pass [facility] [address] [place] [address] Social History Tobacco Use Types Packs/Day Years [...] documented as of this encounter Care Teams Claims Adjuster Supervisor Relationship Specialty Start Date End Date Jigar Patel PA [address] [place] [address] PCP - General 07/24/22 Edi Montoya MD [address] [place] [address] [place] [address] Pulmonary Disease 09/25/23 documented as of this encounter Additional Source Comments The information contained in this document represents components of the legal health record. It is not the complete legal health record.[facility]
--- OUTSIDE RECORDS SUMMARY | 2025-10-18 15:50 | XMS_ITS | Data Portability ---
Author Organization [employer], [facility] Address [address] [place] [address] Care Team Providers Care Ic Engineer Name Role Phone HIM CCA OTHER Assessment Encounter Date Assessment Date Assessment LastModified by Organization Details LastModified Time 11/29/2022 11/29/2022 I have reviewed and agree with the assessment and plan as documented by the devops consultant. I provided real-time medical direction for this [...] assessment and plan as documented by the devops consultant. I provided real time medical direction for this encounter and was immediately available to provide additional phone based assistance as needed. History as noted by devops consultant. Pt with history of multiple abdominal/bowel surgeries including prior colostomy reversal. Pt has known ventral hernia and has been evaluated at [facility] for surgical repair of the [...] she was hoping to get to [facility] tomorrow, but is now stating that she is willing to go to the [facility] ED (since they are part of [facility]) for evaluation and possible transfer to [facility] for surgical evaluation. Bulk Plant Operator helps to arrange ambulance transport to the [facility] ED. I call an expect to the [facility] ED charge account identification clerk as well. [email or web address] Not available 09/02/2023 17:22:49 Plan of Treatment Reminders Order Date Submit Date Provider Last Modified By Organization Details Last Modified Time Details Appointments None recorded. Lab None recorded. Referral None recorded. Procedures None recorded. Surgeries None recorded. Imaging None recorded. Medication Orders cephalexin 500 mg capsule 2024 025 [facility], [address] [place] [address], [id number], 5 05:01:25 cephalexin 500 mg capsule 2024 025 [id number], [address] [place], [address], 5 05:01:25 acetaminoph en 500 mg tablet 2024 025 [facility], [address] [place] [address], [id number], 5 05:02:09 acetaminoph en 500 mg tablet 2024 025 [id number], [address] [place], [address], 5 05:02:09 Moisture Barrier Ointment 0.44 %-20.6 % 2022 023 [facility], [address] [facility], [place], [address], 12:47:52 Patient TargetsNo targets recorded. Patient InstructionsNo instructions recorded. Reason for Referral None Reported. Medical Equipment None Reported. Allergies Allergen ID Allergen Name Allergen Category Reaction Reaction Severity Criticality Documentation Date Start Date Code Code System Note Provider Name and Address Organization Details Recorded Time 05770 doxycycli ne Not available Not available Not available Not available 08/26/2025 3640 RxNorm Not Available [facility] - production 17:00:57 24700 Non-stero idal anti-infl ammatory agent (substanc e) medicatio n Not available Not available Not available 08/26/2025 91122 5008 SNOMED Not Available [facility] - production 17:00:57 61291 codeine medicatio n nausea Not available Not available 08/26/20252011 2670 RxNorm Rash unrec ogniz ed react ion (text : GI intol eranc e, code: 15633 5008) (from exter nal sourc e) PAL SHRESTHA MD [address] [place] [address],[address] [facility], [place], [address], [place] [employer] [facility] [employer] 18:02:33 10939 dexametha sone medicatio n Not available Not available Not available 08/26/2025 3264 RxNorm Not Available [employer] [facility] - prod 17:52:06 41239 doxycycli ne hyclate medicatio n Not available Not available Not available 08/26/20252021 74158 RxNorm unrec ogniz ed react ion (text : Nause a and/o r Vomit ing, code: 13180 000) (from exter nal sourc e) Not Available [employer] [facility] - prod 17:52:15 02731 Bactrim medicatio n abdominal pain Not available Not available 08/26/2025 32637 9 RxNorm PAL SHRESTHA MD [address], [place], [address], [employer] 18:04:26 8461 Product containin g penicilli n (product) medicatio n vomiting Not available Not available 08/24/20242011 58650 8001 SNOMED PAL SHRESTHA MD [address] [facility],[address], [place], [address], [employer] 18:02:56 8462 aspirin medicatio n Not available [...] Details Last Updated DateTime 3 16 /min 25369.6 8 g 98 % 79 /min 144/90 mm[Hg] Not Available [facility] - production 3 13:06:43 Date Recorded Heart rate Oxygen saturation Body temperature Respiratory rate Systolic And Diastolic Provider Name and Address Organization Details Last Updated DateTime 3 85 /min 96 % 98.4 [degF] 16 /min 154/83 mm[Hg] Not Available [facility] - production 3 20:27:00 Date Recorded Respiratory rate Body weight Oxygen saturation Body height Heart rate Body temperature Systolic And Diastolic Systolic And Diastolic Provider Name and Address Organization Details Last Updated DateTime 5 18 /min 96583.5 2 g 97 % 162.56 cm 108 /min 99.2 [degF] 180/100 mm[Hg] 160/100 mm[Hg] Not Available [facility] [employer] - production 5 18:16:27 Date Recorded Respiratory rate Heart rate Oxygen saturation Body temperature Systolic And Diastolic Provider Name and Address Organization Details Last Updated DateTime 3 18 /min 96 /min 95 % 98.7 [degF] 130/78 mm[Hg] Not Available [facility] - Meme 3 15:16:46 Social History None recorded. Functional [...] Note 7502 Shelli Velez MD Main - [address] [address] 11/29/2022 12:24:25 12/02/2022 12:22:07 Epigastric pain 79566456 R10.13 [id number] Chema Quezada MD Main - [address] [address] 04/25/2023 13:06:41 04/29/2023 10:15:27 Carpal tunnel syndrome 52181254 G56.01 This 63-year-ol d female with previous right carpal tunnel surgery has a history of right wrist and hand pain that has been worse over the past week. The pain hasn't responded to OTC meds. I ordered Toradol 30 mg IM. She will follow-up with her regular physicians . The patient agreed with this plan. [id number] Chema Quezada MD Main - [facility] [address] [place] [phone] 04/26/2023 20:26:56 04/28/2023 10:33:04 Pain in limb 27169922 M79.609 This 63-year-ol d female continues to [...] option. The patient agreed with this plan. 34833 Christoph Blood MD Main - [address] [address] 09/02/2023 15:16:43 09/02/2023 22:32:50 Abdominal pain 20915507 R10.9 40321 PAL SHRESTHA MD Main-[facility] [address] [phone] 08/26/2025 17:51:35 08/26/2025 18:56:46 Disorder of right upper extremity [id number] 30860 R22.31 [id number] Evaluation in the field was performed by my devops consultant colleague, as noted above, I provided real-time direction and supervisio n for this visit. The evaluation revealed 65-year-ol d female with a history of COPD/asthm a, congestive heart failure, and cancer presenting with right forearm redness, swelling, and pain. The patient was discharged today from [facility], where she was admitted for hernia [...] apixaban therapy).E levated BP Plan:Area outlined by devops consultant for monitoring progressio n.Keflex initiated (first dose given by devops consultant) ; 1 capsule QID 5 days.Patie nt [...] numbness or coolness of the hand [facility] or ED evaluation if any [...] Mcguire Member ID Guarantor Name 04/25/2023 1 [facility] - DOS PRIOR TO 2023 - DUAL ELIGIBLE (MEDICARE REPLACEMENT/ADV ANTAGE - HMO) Yu Morgan [id number] Yu Morgan 08/26/2025 1 [facility] - DOS ON OR AFTER 2023 - DUAL ELIGIBLE - PRISON OPTIONS AND ONE CARE (MEDICARE REPLACEMENT/ADV ANTAGE - HMO) Yu Morgan [id number] Yu Morgan Notes Date Note Type Note [...] a referral, verified via . Members community POLICE LIAISON OFFICER nurse present during time of triage. Member [...] evaluated in home. Shelli Velez MD [address] [facility],[address], [place], [address], [employer] [facility] [employer] 11/29/2022 12:46:44 04/25/2023 text/html ROS as noted [...] ..................... ..................... ..................... ..................... ..................... ..................... ............... Bulk Plant Operator Note From Dave Mai: pt requesting [...] has good pulses and sensation. VM contacted [facility] ordered 30mg of Toradol IM . Toradol given in left deltoid . Pt educated on s/s warranting a 911 call/trip to the hospital. Pt advised to keep F/U appt tomorrow with her doctor. Bulk Plant Operator Allergies: Penicillin, Aspirin ..................... ..................... ..................... ..................... ..................... ..................... ............... Disposition: [place] Chema Quezada MD [address] [facility],[address], [place], [address], [employer] 04/28/2023 17:27:10 04/26/2023 text/html ROS as noted [...] DId not further info,nessa Quezada MD [address] [facility],[address], [place], [address], [employer] 04/26/2023 20:32:11 09/02/2023 text/html ROS as noted in the HPI This was a supervised home visit with devops consultant Brenda Newton. HPI: Member reports that she is experiencing abdominal and hernia pain today. Vomiting since this morning. Sweating. Member has hx of hernia pain and is trying to go to [facility] for a urgent medical visit tomorrow. [...] ..................... ..................... ..................... ..................... ..................... ..................... ............... Bulk Plant Operator Note From Brenda Newton: Upon arrival, pt was lying in bed on her right side. A/O x4 pt color is pale/warm/dry. Pt is not in any immediate respiratory distress. Pt stated that she has extensive abdominal issues and is supposed to have surgery in [place]. Pt states she has been in 10/10 pain x 2-3 days with nausea, vomiting, and bloody stools. Pt states she wants to go to the ER but insists she gets to [facility] because they are the only ones who will transfer her to [place]. Vitals as noted. Hernia can be visualized in the abdomen. Abdomen is non rigid but extremely tender to the touch. Pt denies any CP, dizziness and/or SOB. [facility] contacted and agrees pt needs to be evaluated in ER. Pt states [facility] will find someone to [facility] and once lifeline is activated, rep stated she told responding unit that pt must be taken to [facility]. EMS BLS unit arrives on scene and states they cannot transport outside their area. Dispatch is notified and asked if [facility] can transport pt to [facility]. [facility] arrives on scene to transport pt and [facility] is cleared. It is noted that pt stated she was at [facility] earlier today for blood work. Pt stated she was brought by transport but they will not do same day transports. [facility] contacted [facility] to alert of pt s arrival. Call is then cleared. Bulk Plant Operator Allergies: Penicillin, Aspirin ..................... ..................... ..................... ..................... ..................... ..................... ............... Disposition: Fulfilled Christoph Blood MD [address] [place] [address],[address], [place], [phone] [employer] 09/02/2023 17:23:01 08/26/2025 text/html ROS as noted in the [facility] Nurse Triage Notes ([place] [...] new medications. I provided information on the [facility] provider response time and advised the patient and/or caregiver to monitor reported signs and symptoms. I discussed the warning signs of when to seek emergency care. ..................... ..................... ..................... ..................... ..................... ..................... ............... Bulk Plant Operator Note From Kobi Erickson: [facility] responds to the listed address for a 65 yof w/ a c/c of UE redness and pain. Upon arrival on scene, pt is standing at the open door to her apartment wearing a bathrobe and invites [facility] inside. She is generally well-appearing w/ p/w/d skin and NAD. She sits in the recliner in her living room for evaluation. She tells [facility] she was discharged this afternoon from [...] and consents to evaluation and treatment today. [facility] captures pt consent signature. Vital signs [...] and no numbness or tingling are present. [facility] contacts [facility] and discusses the above. [facility] confirms pt allergies and orders [facility] to outline the area of redness on the forearm so pt can monitor the area. [facility] then orders 500mg cephalexin PO for pt and calls in 5-day course to pt's pharmacy. [facility] requests a recheck of pt's bp and instructs pt to apply warn compresses and to monitor the area and if the redness begins to grow outside the borders drawn w/ the marker or if she gets worse in any way, she needs to return to the ED for stronger abx. [facility] administers 500mg x1 tablet PO to pt and outlines the borders of the red area on the forearm. [facility] also instruct pt to apply warm compresses. BP is reassessed and remains high. Pt feels her elevated pressure and SAMSON are due to her fatigue and not feeling well. [facility] is informed and [facility] orders 1G Tylenol PO for pt. [facility] administers 500mg x2 tablets Tylenol PO to pt and instructs her to return to the ED if she sees no improvement in the forearm by Friday nigh/Friday morning at the latest. Pt thanks [facility] for coming. [facility] is clear. Report completed by ATIF Erickson [id number]. [facility] Medication Orders: cephalexin 500 mg capsule: Administered acetaminophen 500 mg tablet: Administered ..................... ..................... ..................... ..................... ..................... ..................... ............... [facility] Consulted: Pal Shrestha ..................... ..................... ..................... ..................... ..................... ..................... ............... Disposition: Fulfilled PAL SHRESTHA MD [address] [facility],[address], [place], [address], [employer] [facility] [employer] 08/26/2025 18:53:11 OBGyn Episode No OBEpisode recorded.
== END 2025-10-18 14:34 | disposition home or self-care (01) ==
LOC: HO.HOP 14:32
PROVIDERS: PCP Physician Assistant; Visit Provider Clinical Nurse Specialist Psychiatric/Mental Health
DX: F33.1 Major depressive disorder, recurrent, moderate (principal); F60.3 Borderline personality disorder; F41.1 Generalized anxiety disorder; F41.0 Panic disorder [episodic paroxysmal anxiety]; F43.12 Post-traumatic stress disorder, chronic
CPT/HCPCS: 99213